=== PATIENT | female | born 1980 | race Caucasian/White ===

== ENCOUNTER 2023-07-21 13:48 | Outpatient (RCR) | payer MEDICARE, MEDICAID, SELFPAY | END 2023-08-03 12:01 | disposition home or self-care (01) | LOC: PT 13:48 | DX: R53.81 Other malaise (principal); G89.4 Chronic pain syndrome | CPT/HCPCS: 97113; 97161 ==

== ENCOUNTER 2023-09-29 13:49 | Emergency (ER) | payer MEDICARE, MEDICAID, SELFPAY ==
[2023-09-29 13:53] VITALS: BP 119/82; PULSE 65; TEMP 36.6; O2SAT 99; BMI 40.3
--- NOTE | 2023-09-29 14:22 | ED_ITS ---
HPI HPI - General Adult General Chief complaint: Allergic Reaction Stated complaint: ALLERGIC REACTION Time Seen by Provider: 09/29/23 14:13 Source: patient Mode of arrival: ambulance Limitations: no limitations History of Present Illness HPI narrative: Patient is a 42-year-old female who presents to the emergency department For feeling off after taking a dose of Nurtec ODT last night. She was recently prescribed this medication by her neurologist at the [facility]. She states she has daily headaches and has chronic migraines that are ongoing for years. She has chronic daily pain. She states she had a similar reaction to a combination of Depakote and Compazine that was given to her. She states she does not feel like herself, she feels off, her reports that she was climbing at her eyes last night despite her not having any hernandez on her face. She states she has not slept well in the last 2 days. She took the first dose of Nurtec ODT 2 days ago and states she had a mild similar reaction, the reaction to the medication after last night was more significant. She denies any new areas of pain, she has not had any fevers or visual loss. No vomiting, chest pain, shortness of breath, abdominal pain or peripheral paresthesias. She states her called 911 to bring her to the ER, she took Benadryl about 20 minutes prior to EMS arrival and states that her symptoms have improved at this time. She is not concerned for . At time of my initial interview, the patient has her on FaceTime on her phone, her starts telling me her symptoms/history because the patient states she is not coherent enough to provide her history. I requested that the patient answer questions on her own, she is noted to be able to speak easily, answers questions easily with no slurred speech or incoherence. She is awake, alert and oriented, able to cooperate in history and physical exam. Related Data Allergies Allergy/AdvReac Type Severity Reaction Status Date / Time latex Allergy Intermediate Verified 09/29/23 13:53 cephalexin [From Keflex] AdvReac Intermediate Verified 09/29/23 13:53 divalproex sodium AdvReac Intermediate Verified 09/29/23 13:53 [From Depakote] nitrofurantoin AdvReac Intermediate Verified 09/29/23 13:53 [From Macrobid] prednisone AdvReac Intermediate Verified 09/29/23 13:53 prochlorperazine AdvReac Intermediate Verified 09/29/23 13:53 [From Compazine] Sulfa (Sulfonamide AdvReac Intermediate Verified 09/29/23 13:53 Antibiotics) cirpo AdvReac Intermediate Uncoded 09/29/23 13:53 Opioid HPI Opioid Management Most Recent Opioid Data: No Data to Display Review of Systems ROS Constitutional Denies: fever or chills Ears, nose, mouth, and throat Denies: throat pain or nasal congestion Cardiovascular Denies: chest pain Respiratory Denies: shortness of breath or cough Gastrointestinal Denies: nausea or vomiting Musculoskeletal Denies: back pain or neck pain Integumentary/Breast Denies: rash Neurological Reports: headache; Denies: numbness in extremities Hematologic/Lymphatic Denies: easy bruising or easy bleeding Exam Narrative Exam Narrative: Gen.: Awake, alert, in no distress Head: Normocephalic, atraumatic ENT: Moist mucous membranes Respiratory: No respiratory distress, lungs clear bilaterally Cardio: Regular rate and rhythm Extremities: Moves extremities equally Psych: Normal mood and affect Neuro: No focal neuro deficit; Patient is mildly drowsy but awake and able to answer all questions appropriately. No slurred speech or incoherent speech. She has no focal neurodeficits on exam Skin: Warm, dry, intact Constitutional Vital Signs, click to edit/add: Last Vital Signs Temp 97.9 F 09/29/23 13:53 Pulse 65 09/29/23 13:53 Resp 16 09/29/23 13:53 BP 119/82 09/29/23 13:53 Pulse Ox 99 09/29/23 13:53 O2 Del Method Room Air 09/29/23 13:53 Course Vital Signs Vital signs: Vital Signs Temperature 97.9 F 09/29/23 13:53 Pulse Rate 65 09/29/23 13:53 Respiratory Rate 16 09/29/23 13:53 Blood Pressure 119/82 09/29/23 13:53 Pulse Oximetry 99 09/29/23 13:53 Oxygen Delivery Method Room Air 09/29/23 13:53 Temperature 97.9 F 09/29/23 13:53 Pulse Rate 65 09/29/23 13:53 Respiratory Rate 16 09/29/23 13:53 Blood Pressure 119/82 09/29/23 13:53 Pulse Oximetry 99 09/29/23 13:53 Oxygen Delivery Method Room Air 09/29/23 13:53 Medical Decision Making MDM Narrative Medical decision making narrative: Patient treated with IV fluids and Benadryl. She is sleeping comfortably and states she feels better on reevaluation. She was noted to have low potassium was treated with oral potassium chloride. She has stable vital signs, no evidence of anaphylaxis or allergic reaction. She was instructed not to take the Nurtec ODT until she speaks to her neurologist. Follow-up with neurology and return to the ER if symptoms change or worsen Medical Records Medical records reviewed: Yes I reviewed the patient's medical records Lab Data Lab results reviewed: Yes I reviewed the patient's lab results Labs: Lab Results 09/29/23 Range/Units 14:36 WBC 7.9 (4.0-11.0) 10^3/uL RBC 4.23 (4.20-5.40) 10^6/uL Hgb 12.5 (12.0-16.0) g/dL Hct 35.8 L (36.0-48.0) % MCV 84.6 (81.0-99.0) fL MCH 29.6 (26.7-34.0) pg MCHC 34.9 (29.9-35.2) g/dL RDW 13.3 (11.0-15.0) % Plt Count 267 (150-450) 10^3/uL MPV 10.8 (9.5-13.5) fL Neut % (Auto) 41.7 L (43.0-75.0) % Lymph % (Auto) 45.9 (20.5-60.0) % [place] % (Auto) 8.0 (1.7-12.0) % Eos % (Auto) 3.7 (0.9-7.0) % Baso % (Auto) 0.4 (0.2-2.0) % Neut # (Auto) 3.3 (1.4-6.5) 10^3/uL Lymph # (Auto) 3.6 (1.2-3.8) 10^3/uL [place] # (Auto) 0.6 (0.3-0.8) 10^3/uL Eos # (Auto) 0.3 (0.0-0.7) 10^3/uL Baso # (Auto) 0.0 (0.0-0.1) 10^3/uL Abs Immat Gran (auto) 0.02 (0.00-0.03) 10^3/uL Imm/Tot Granulo (auto) 0.3 (0.0-0.5) % Sodium 135 L (136-145) mmol/L Potassium 3.1 L (3.5-5.1) mmol/L Chloride 98 (98-107) mmol/L Carbon Dioxide 27.8 (21.0-32.0) mmol/L Anion Gap 12.3 BUN 4.0 L (7.0-18.0) mg/dL Creatinine 0.76 (0.55-1.02) mg/dL Est GFR ( Amer) >60 (>=60) Est GFR (Non-Af Amer) >60 (>=60) BUN/Creatinine Ratio 5.3 Glucose 102 (74-106) mg/dL Calcium 8.8 (8.5-10.1) mg/dL Discharge Plan Discharge Stand Alone Forms: Portal Instructions Chief Complaint: Allergic Reaction Clinical Impression: Medication adverse effect Patient Disposition: Home, Self-Care Time of Disposition Decision: 15:41 Condition: Good Print Language: Congolese Instructions: Adverse Drug Reaction (ED) Referrals: Physician,Non-Staff, [Primary Care Provider] - 1 week
[2023-09-29] MEDS: 0.9 % SODIUM CHLORIDE 1,000 ML 1000 ML IV (14:39)
[2023-09-29] MEDS: DIPHENHYDRAMINE HCL 50 MG/ML VIAL 25 MG IV (14:39)
[2023-09-29 15:00] LABS: Basophils Percent Auto 0.4 % (0.2-2.0); Eosinophils Absolute Auto 0.3 10^3/uL (0.0-0.7); Eosinophils Percent Auto 3.7 % (0.9-7.0); Hematocrit 35.8 % (36.0-48.0); Hemoglobin 12.5 g/dL (12.0-16.0); Immature Granulocytes Abs Auto 0.02 10^3/uL (0.00-0.03); Immature Granulocytes Pct Auto 0.3 % (0.0-0.5); Lymphocytes Absolute Auto 3.6 10^3/uL (1.2-3.8); Lymphocytes Percent Auto 45.9 % (20.5-60.0); Mean Corpuscular HGB Conc 34.9 g/dL (29.9-35.2); Mean Corpuscular Hemoglobin 29.6 pg (26.7-34.0); Mean Corpuscular Volume 84.6 fL (81.0-99.0); Mean Platelet Volume 10.8 fL (9.5-13.5); Monocytes Absolute Auto 0.6 10^3/uL (0.3-0.8); Neutrophils Absolute Auto 3.3 10^3/uL (1.4-6.5); Neutrophils Percent Auto 41.7 % (43.0-75.0); Platelet Count 267 10^3/uL (150-450); Red Blood Count 4.23 10^6/uL (4.20-5.40); Red Cell Distribution Width 13.3 % (11.0-15.0); White Blood Count 7.9 10^3/uL (4.0-11.0)
[2023-09-29 15:02] LABS: Anion Gap 12.3; BUN Creatinine Ratio 5.3; Calcium 8.8 mg/dL (8.5-10.1); Carbon Dioxide 27.8 mmol/L (21.0-32.0); Chloride 98 mmol/L (98-107); Estimated GFR (African America >60 (>=60); Estimated GFR (Non-African Ame >60 (>=60); Glucose 102 mg/dL (74-106); Potassium 3.1 mmol/L (3.5-5.1); Sodium 135 mmol/L (136-145)
[2023-09-29] MEDS: POTASSIUM CHLORIDE 10 MEQ ER TABLET 40 MEQ PO (15:47)
[2023-09-29 15:48] VITALS: BP 129/82; PULSE 88; O2SAT 98
== END 2023-09-29 15:50 | disposition home or self-care (01) ==
PROVIDERS: Physician Assistant; Emergency Provider Student in an Organized Health Care Education/Training Program
DX: R41.82 Altered mental status, unspecified (principal); T50.995A Adverse effect of other drugs, medicaments and biological substances, initial encounter; E87.6 Hypokalemia; G43.909 Migraine, unspecified, not intractable, without status migrainosus; G89.29 Other chronic pain
CPT/HCPCS: 36415; 80048; 85025; 96374; 99284; J1200

== ENCOUNTER 2024-09-09 00:35 | Emergency (ER) | payer MEDICARE, MEDICAID, SELFPAY ==
[2024-09-09] VITALS (17 sets, daily range): BP systolic 133–170; BP diastolic 91–105; PULSE 77–83; TEMP 37.1; O2SAT 91–96; BMI 41.1
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
--- OUTSIDE RECORDS SUMMARY | 2024-09-09 00:43 | XMS_ITS | Encounter Summary ---
Author Organization [facility] Address [address] [place], [place] [id number] Care Team Providers Care Gag Writer Name Role Phone IsiahNate greenfield Cecelia OSBORNE Unavailable [phone] Basim White MD Primary Care Provider Paulie Sandra MD Unavailable Teagan Henriquez RN Unavailable [facility] POWER GRADER OPERATOR.FELT HAT MELLOWING MACHINE OPERATOR Unavailable Leeanne Balderas POWER GRADER OPERATOR.FELT HAT MELLOWING MACHINE OPERATOR Unavailable [phone] Juanita Luong PA-C Unavailable Rubi Rodriguez POWER GRADER OPERATOR.FELT HAT MELLOWING MACHINE OPERATOR Unavailable Christiana Sims PA-C Unavailable Tami Vazquez PA-C Unavailable [phone] Juanita Luong PA-C Unavailable Awa Sanchez PA-C Unavailable Source Comments In the event this information is protected by the Federal Confidentiality of Alcohol and Drug AbusePatient Records regulations: The Federal rules restrict any use of the information to criminally investigate or prosecute any alcohol or drug abuse patient.[facility] Encounter Details Date Type Department Care Team (Latest Contact Info) Description 10/01/2020 Patient Msg Home Respiratory Therapy [address] [facility] [address] [place], [place] [address] Provider, [facility] Questionnaire Submission Social History Tobacco Use Types Packs/Day Years Used Date Smoking Tobacco: Never Smokeless Tobacco: Never Alcohol Use Standard Drinks/Week Comments Yes 0 (1 standard drink = 0.6 oz pur e alcohol) rarely Social Connection and Isolat ion Panel [NHANES] Answer Date Recorded In a typical week, how many times do you talk on the phone with family, friends, or neighbors? Once a week 09/29/2019 How often do you get togethe r with friends or relatives? Never 09/29/2019 How often do you attend chur or methodist services? More than 4 times per year 09/29/2019 Do you belong to any clubs o r organizations such as jewish groups, unions, fraternal or athletic groups, or school groups? No 09/29/2019 How often do you attend meet ings of the clubs or organizations you belong to? Never 09/29/2019 Are you , , di vorced, , never , or living with a partner? 09/29/2019 PHQ-2 Answer Date Recorded PHQ-2 score 0 02/04/2020 [facility] - Occupational Stress Questionnaire Answer Date Recorded Do you feel stress - tense, restless, nervous, or anxious, or unable to sleep at night because your mind is troubled all the time - these days? Rather much 09/29/2019 Exercise Vital Sign Answer Date Recorde d On average, how many days pe r week do you engage in moderate to strenuous exercise (like a brisk walk)? 0 days 09/29/2019 On average, how many minutes do you engage in exercise at this level? 0 min 09/29/2019 Housing Stability Vital Sign Answer Steve e Recorded In the last 12 months, was t here a time when you were not able to pay the mortgage or rent on time? Patient refused 03/22/20 20 [address] of [address] Lived in the Last Year Not on f ile 03/22/2020 In the last 12 months, was t here a time when you did not have a steady place to sleep or slept in a mcfp (including now)? Patient refused 03/22/2020 Area Deprivation Index Answer Date Sergio rded National Score (1-100), lower number is lower ri sk Not on file 03/22/2020 State Score (1-10), lower number is lower risk N ot on file 03/22/2020 Data from: https://www.neighborhoodatlas.medicine.[facility] Last address used for calculation Not on file 03/22/2020 Education Answer Date Recorded What is the highest level of school you have completed or the highest degree you have received? 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 Answer Date of Assessment Author No 01/25/2017 3:55 PM RAMONT Osmany Ireland RN documented as of this encounter Mental Status * Because of a physical, mental, or emotional condition, do you have serious difficulty concentrating, remembering, or making decisions? Answer Entry Date Author No 01/25/2017 3:55 PM EDT Osmany Ireland RN documented in this encounter Plan of Treatment Upcoming Encounters Date Type Department Care Team (Latest Contact Info) Description 09/24/2024 6:00 PM EDT [address] [address] Basim White MD [address] [place] [address] 3 month follow up 11/28/2024 9:40 AM EDT [facility] Endocrinology [place] [address] [place] [address] [place] [address] [address] Type one diabetes pump and cgm follow up 12/20/2024 4:00 PM EDT [address] [address] Christiana Sims PA-C [address] [place] [address] 6 Month follow up and yearly physical 03/04/2025 5:20 PM EST Office Visit [address] [address] Basim White MD [address] [place] [address] 12 month follow up documented as of this encounter Goals Goal Patient Goal Type Associated Problems Recent Progress Patient-Stated? Author Care Coordination - Diabetes Care Coordination Counseling and coordination of care Morena Velarde, RN Note: Knows type of diabetes. (e.g. [...] Reviewed on date: December 11, 2013 MORENA PANDEY RN documented as of this encounter Visit Diagnoses Not on filedocumented in this encounter Additional Health Concerns Infection Onset Date Last Indicated Resolved Time COVID-19 Confirmed 02/26/2021 02/26/2021 8:51 PM EST documented as of this encounter Care Teams Gag Writer Relationship Specialty Start Date End Date Basim White MD [address] [place] [address] PCP - General Family Medicine 08/09/17 Nate Joyce DO Roads Supervisor 02/09/13 Paulie Sandra MD [address] [address] Primary Staff Physician Cardiology 07/04/18 Teagan Henriquez, RN [address] [place] [address] Primary Care Business Services Clerk Internal Medicine 06/22/23 07/21/23 [facility], POWER GRADER OPERATOR.FELT HAT MELLOWING MACHINE OPERATOR [address] [place] [address] [facility] 03/26/24 07/04/24 Leeanne Balderas, POWER GRADER OPERATOR.FELT HAT MELLOWING MACHINE OPERATOR [address] [place] [address] [facility] 03/26/24 07/04/24 Juanita Luong PA-C [address] [place] [address] [facility] 03/26/24 07/04/24 Rbui Rodriguez, POWER GRADER OPERATOR.FELT HAT MELLOWING MACHINE OPERATOR [address] [place] [address] [facility] 03/26/24 07/04/24 Christiana Sims PA-C [address] [place] [address] [facility] 03/26/24 Tami Vazquez PA-C [address] [place] [address] [facility] 06/07/24 07/04/24 Juanita Luong PA-C [address] [place] [address] [facility] 07/11/24 07/25/24 Awa Sanchez PA-C [address] [place] [address] Chain Puller Internal Medicine 09/03/24 documented as of this encounter
--- OUTSIDE RECORDS SUMMARY | 2024-09-09 00:43 | XMS_ITS | Encounter Summary ---
Author Organization [facility] Address [address] [place], [place] [address] Care Team Providers Care Draw In Hand Name Role Phone IsiahNate greenfield Cecelia OSBORNE Unavailable [phone] Basim White MD Primary Care Provider Paulie Sandra MD Unavailable Teagan Henriquez RN Unavailable [employer] MANAGER HOME IMPROVEMENT.UX MANAGER Unavailable Leeanne Balderas MANAGER HOME IMPROVEMENT.UX MANAGER Unavailable [phone] Juanita Luong PA-C Unavailable Rubi Rodriguez MANAGER HOME IMPROVEMENT.UX MANAGER Unavailable Christiana Sims PA-C Unavailable Tami Vazquez PA-C Unavailable [phone] Juanita Luong PA-C Unavailable Awa Sanchez PA-C Unavailable Source Comments In the event this information is protected by the Federal Confidentiality of Alcohol and Drug AbusePatient Records regulations: The Federal rules restrict any use of the information to criminally investigate or prosecute any alcohol or drug abuse patient.[facility] Encounter Details Date Type Department Care Team (Late st Contact Info) Description 09/19/2020 Get Medical Advice General Surgery [address] [place] [address] Dior Martinez, MANAGER HOME IMPROVEMENT.SMOKE ROOM OPERATOR [address] [place] [address] RE: Visit Follow Up Question Social History [...] 09/29/2019 How often do you attend chur ch or yazidism services? More than 4 times per year 09/29/2019 Do you belong to any clubs o r organizations such as restorationism groups, unions, fraternal or athletic groups, or school groups? No 09/29/2019 How often do you attend meet ings of the clubs or organizations you belong to? Never 09/29/2019 Are you , , di vorced, , never , or living with a partner? 09/29/2019 PHQ-2 Answer Date Recorded PHQ-2 score 0 02/04/2020 [facility] - Occupational Stress [...] place to sleep or slept in a chcf (including now)? Patient refused 03/22/2020 Area Deprivation Index Answer Date Sergio rded National Score (1-100), lower number is lower ri sk Not on file 03/22/2020 State Score (1-10), lower number is lower risk N ot on file 03/22/2020 Data from: https://www.neighborhoodatlas.medicine.[facility].edu/. 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 Not on file Not [...] Contact Info) Description 09/24/2024 6:00 PM EDT [address] [address] Basim White MD [address] [place] [address] 3 month follow up 11/28/2024 9:40 AM EDT [facility] [place] [address] [place] [address] [place] [address] [address] Type one diabetes pump and cgm follow up 12/20/2024 4:00 PM EDT [address] [address] Christiana Sims PA-C [address] [place] [address] 6 Month follow up and yearly physical 03/04/2025 5:20 PM EST Office Visit [address] [address] Basim White MD [address] [place] [address] 12 month follow up documented as of [...] documented as of this encounter Care Teams Draw In Hand Relationship Specialty Start Date End Date Basim White MD [address] [place] [address] PCP - General Family Medicine 08/09/17 Nate Joyce DO Title Specialist 02/09/13 Paulie Sandra MD [address] [address] Primary Staff Physician Cardiology 07/04/18 Teagan Henriquez, RN [address] [place] [address] Primary Care Skip Pit Worker Internal Medicine 06/22/23 07/21/23 [employer], MANAGER HOME IMPROVEMENT.UX MANAGER [address] [place] [address] Story Writer Family Medicine 03/26/24 07/04/24 Leeanne Balderas, MANAGER HOME IMPROVEMENT.UX MANAGER [address] [place] [address] Story Writer Family Medicine 03/26/24 07/04/24 Juanita Luong PA-C [address] [place] [address] Story Writer Family Medicine 03/26/24 07/04/24 Rubi Rodriguez, MANAGER HOME IMPROVEMENT.UX MANAGER [address] [place] [address] Story Writer Family Medicine 03/26/24 07/04/24 Christiana Sims PA-C [address] [place] [address] Story Writer Family Medicine 03/26/24 Tami Vazquez PA-C [address] [place] [address] Story Writer Family Medicine 06/07/24 07/04/24 Juanita Luong PA-C [address] [place] [address] Story Writer Family Medicine 07/11/24 07/25/24 Awa Sanchez PA-C [facility] [place] [phone] Story Writer Internal Medicine 09/03/24 documented as of this encounter
--- OUTSIDE RECORDS SUMMARY | 2024-09-09 00:43 | XMS_ITS | Encounter Summary ---
Author Organization [facility] Address [address] [place], [place] [address] Care Team Providers Care Desolderer Name Role Phone IsiahNate greenfield Cecelia OSBORNE Unavailable [phone] Basim White MD Primary Care Provider Paulie Sandra MD Unavailable [phone] Teagan Henriquez RN Unavailable [employer] SECURITIES SETTLEMENT PROCESSOR.MOTOR SCOOTER REPAIRER Unavailable Leeanne Balderas SECURITIES SETTLEMENT PROCESSOR.MOTOR SCOOTER REPAIRER Unavailable [phone] Juanita Luong PA-C Unavailable Rubi Rodriguez SECURITIES SETTLEMENT PROCESSOR.MOTOR SCOOTER REPAIRER Unavailable Christiana Sims PA-C Unavailable Tami Vazquez PA-C Unavailable [phone] Juanita Luong PA-C Unavailable Awa Sanchez PA-C Unavailable Source Comments In the event this information is protected by the Federal Confidentiality of Alcohol and Drug AbusePatient Records regulations: The Federal rules restrict any use of the information to criminally investigate or prosecute any alcohol or drug abuse patient.[facility] Encounter Details Date Type Department Care Team (Kathryn saini Contact Info) Description 07/18/2023 Patient Msg Cardiovascular Testing [address] [place] [address] Provider, Ccf Nuclear Medicine Stress Test - On 07/18 Social History Tobacco Use Types Packs/Day Years Used Date Smoking Tobacco: Never Smokeless Tobacco: Never Alcohol Use Standard Drinks/Week Comments Yes 0 (1 standard drink = 0.6 oz pur e alcohol) rarely [facility] Utilities Answer Date Recorded In the past 12 months has e [employer], gas, oil, or water company threatened to shut off services in your home? Yes 06/20/2023 Social Connection and Isolat ion Panel [NHANES] Answer Date Recorded In a typical week, how many times do you talk on the phone with family, friends, or neighbors? Patient declined 05/20/2023 How often do you get togethe r with friends or relatives? Never 05/20/2023 How often do you attend chur ch or pentecostalism services? More than 4 times per year 05/20/2023 Do you belong to any clubs o r organizations such as spiritism groups, unions, fraternal or athletic groups, or school groups? No 05/20/2023 How often do you attend meet ings of the clubs or organizations you belong to? Never 05/20/2023 Are you , , di vorced, , never , or living with a partner? 05/20/2023 AUDIT-C Answer Date Recorded Q1: How often do you have a drink containing alc ohol? Monthly or less 05/20/2023 Q2: How many drinks containi ng alcohol do you have on a typical day when you are drinking? 1 or 2 05/20/2023 Q3: How often do you have si x or more drinks on one occasion? Never 05/20/2023 Overall Financial Resource Strain (CARDIA) Answe r Date Recorded How hard is it for you to pa y for the very basics like food, housing, medical care, and heating? Very hard 06/20/2023 PHQ-2 Answer Date Recorded PHQ-2 score 4 06/25/2023 [facility] [place] of Occupat ional [facility] - Occupational Stress Questionnaire Answer Date Recorded Do you feel stress - tense, restless, nervous, or anxious, or unable to sleep at night because your mind is troubled all the time - these days? Rather much 05/20/2023 Exercise Vital Sign Answer Date Recorde d On average, how many days pe r week do you engage in moderate to strenuous exercise (like a brisk walk)? 0 days 05/20/2023 On average, how many minutes do you engage in exercise at this level? 0 min 05/20/2023 Hunger Vital Sign Answer Date Recorded Within the past 12 months, y ou worried that your food would run out before you got the money to buy more. Often true 06/20/19 24 Within the past 12 months, t he food you bought just didn't last and you didn't have money to get more. Often true 06/20/2023 PRAPARE - Transportation Answer Date Re corded In the past 12 months, has l ack of transportation kept you from medical appointments or from getting medications? Yes 07/2023 In the past 12 months, has l ack of transportation kept you from meetings, work, or from getting things needed for daily living? Yes 06/20/2023 Housing Stability Vital Sign Answer Steve e Recorded In the last 12 months, was t here a time when you were not able to pay the mortgage or rent on time? Yes 06/20/2023 In the last 12 months, how many places have you lived? 1 06/20/2023 In the last 12 months, was t here a time when you did not have a steady place to sleep or slept in a usp (including now)? No 06/20/2023 Area Deprivation Index Answer Date Sergio rded National Score (1-100), lower number is lower ri sk 79 08/26/2022 State Score (1-10), lower number is lower risk 7 08/26/2022 Data from: https://www.neighborhoodatlas.medicine.[facility].edu/. 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 on file Not [...] Contact Info) Description 09/24/2024 6:00 PM EDT [facility] [place] [address] [place] [address] Basim White MD [address] [place] [address] 3 month follow up 11/28/2024 9:40 AM EDT [facility] [place] [address] [place] [address] [place] [address] [facility] [address] [place] [address] Type one diabetes pump and cgm follow up 12/20/2024 4:00 PM EDT [facility] [place] [address] [place] [address] Christiana Sims PA-C [address] [place] [address] 6 Month follow up and yearly physical 03/04/2025 5:20 PM EST Office Visit [facility] [address] [place] [address] Basim White MD [address] [place] [address] 12 month follow up documented as of [...] Diagnoses Not on filedocumented in this encounter Care Teams Desolderer Relationship Specialty Start Date End Date Basim White MD [address] [place] [address] PCP - General Family Medicine 08/09/17 Nate Joyce DO Cable Braider 02/09/13 Paulie Sandra MD [address] [phone] Primary Staff Physician Cardiology 07/04/18 Teagan Henriquez, JIE [address] [place] [address] Primary Care Director Custom Internal Medicine 06/22/23 07/21/23 [employer] Kc APRN.MOTOR SCOOTER REPAIRER [address] [place] [address] Receiving And Processing Supervisor Family Medicine 03/26/24 07/04/24 Leeanne Balderas, SECURITIES SETTLEMENT PROCESSOR.MOTOR SCOOTER REPAIRER [address] [place] [address] Receiving And Processing Supervisor Family Medicine 03/26/24 07/04/24 Juanita Luong PA-C [address] [place] [address] Receiving And Processing Supervisor Family Medicine 03/26/24 07/04/24 Rubi Rodriguez, ISABELLA.MOTOR SCOOTER REPAIRER [address] [place] [address] Receiving And Processing Supervisor Family Medicine 03/26/24 07/04/24 Christiana Sims PA-C [address] [place] [address] Receiving And Processing Supervisor Family Medicine 03/26/24 Tami Vazquez PA-C [address] [place] [address] Receiving And Processing Supervisor Family Medicine 06/07/24 07/04/24 Juanita Luong PA-C [address] [place] [address] Receiving And Processing Supervisor Family Medicine 07/11/24 07/25/24 Awa Sanchez PA-C [address] [place] [id number] Receiving And Processing Supervisor Internal Medicine 09/03/24 documented as of this encounter
--- OUTSIDE RECORDS SUMMARY | 2024-09-09 00:43 | XMS_ITS | Encounter Summary ---
Author Organization [facility] Address [address] [place], [place] [address] Care Team Providers Care Sales Representative Trainee Name Role Phone IsiahNate greenfield Cecelia OSBORNE Unavailable [phone] Basim White MD Primary Care Provider Paulie Sandra MD Unavailable Teagan Henriquez RN Unavailable [employer] HUMAN RESOURCES RECRUITER.JEWELSMITH Unavailable Leeanne Balderas HUMAN RESOURCES RECRUITER.JEWELSMITH Unavailable [phone] Juanita Luong PA-C Unavailable Rubi Rodriguez HUMAN RESOURCES RECRUITER.JEWELSMITH Unavailable Christiana Sims PA-C Unavailable Tami Vazquez PA-C Unavailable [phone] Juanita Luong PA-C Unavailable Awa Sanchez PA-C Unavailable Source Comments In the event this information is protected by the Federal Confidentiality of Alcohol and Drug AbusePatient Records regulations: The Federal rules restrict any use of the information to criminally investigate or prosecute any alcohol or drug abuse patient.[facility] Encounter Details Date Type Department Care Team (Late st Contact Info) Description 08/11/2021 Get Medical Advice Family Medicine [place] [address] [place], [place] [phone] Basim White MD [address] [place], [place] [id number] Questions Social History Tobacco Use Types Packs/Day Years [...] often do you attend chur ch or anabaptist services? More than 4 times per year 09/29/2019 Do you belong to any clubs o r organizations such as confucianism groups, unions, fraternal or athletic groups, or school groups? No 09/29/2019 How often do you attend meet ings of the clubs or organizations you belong to? Never 09/29/2019 Are you , , di vorced, , never , or living with a partner? 09/29/2019 PHQ-2 Answer Date Recorded PHQ-2 score 5 03/03/2021 [facility] Occupat ional Health - [...] the mortgage or rent on time? Yes 03/03/2021 In the last 12 months, how many places have you lived? 1 03/03/2021 In the last 12 months, was t here a time when you did not have a steady place to sleep or slept in a fpc (including now)? No 03/03/2021 Area Deprivation Index Answer Date Sergio rded National Score (1-100), lower number is lower ri sk Not on file 03/22/2020 State Score (1-10), lower number is lower risk N ot on file 03/22/2020 Data from: https://www.neighborhoodatlas.medicine.[facility].edu/. Last address used for calculation Not on [...] Industry Job Start Date Job End Date [employer] Not on file Not on file Not on file disability since 07/2015 (off work since 11/2013) Not on file Not on file Not on file COVID-19 Exposure Response Date Recorded In the last 10 days, have yo u been in contact with someone who was confirmed or suspected to have Coronavirus/COVID-19? No / Unsure 07/13/2021 11:39 PM EDT documented as of this encounter Functional Status [...] Contact Info) Description 09/24/2024 6:00 PM EDT [address] [address] Basim White MD [address] [place] [address] 3 month follow up 11/28/2024 9:40 AM EDT [facility] [place] [address] [place] [phone] [place] [address] [address] Type one diabetes pump and cgm follow up 12/20/2024 4:00 PM EDT [address] [address] Christiana Sims PA-C [address] [place] [address] 6 Month follow up and yearly physical 03/04/2025 5:20 PM EST Office Visit [address] [address] Basim White MD [address] [place] [address] 12 month follow up documented as of [...] as of this encounter 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 Care Teams Sales Representative Trainee Relationship Specialty Start Date End Date Basim White MD [address] [place] [address] PCP - General Family Medicine 08/09/17 Nate Joyce DO Windows Systems Administrator 02/09/13 Paulie Sandra MD [address] [address] Primary Staff Physician Cardiology 07/04/18 Teagan Henriquez, RN [address] [place] [id number] Primary Care Tool Crib Clerk Internal Medicine 06/22/23 07/21/23 P[employer] Kc, HUMAN RESOURCES RECRUITER.JEWELSMITH [address] [place] [address] Plant Controller Family Medicine 03/26/24 07/04/24 Leeanne Balderas, HUMAN RESOURCES RECRUITER.JEWELSMITH [address] [place] [address] [facility] Family Medicine 03/26/24 07/04/24 Juanita Luong PA-C [address] [place] [address] [facility] Family Medicine 03/26/24 07/04/24 Rubi Rodriguez, HUMAN RESOURCES RECRUITER.JEWELSMITH [address] [place] [address] [facility] Family Medicine 03/26/24 07/04/24 Christiana Sims PA-C [address] [place] [address] [facility] Family Medicine 03/26/24 Tami Vazquez PA-C [address] [place] [address] [facility] Family Medicine 06/07/24 07/04/24 Juanita Luong PA-C [address] [place] [address] Plant Controller Family Medicine 07/11/24 07/25/24 Awa Sanchez PA-C [address] [place] [id number] Plant Controller Internal Medicine 09/03/24 documented as of this encounter
--- OUTSIDE RECORDS SUMMARY | 2024-09-09 00:43 | XMS_ITS | Encounter Summary ---
Author Organization [facility] Address [address] [place], [place] [address] Care Team Providers Care Crude Unit Operator Name Role Phone IsiahNate greenfield Cecelia OSBORNE Unavailable [phone] Basim White MD Primary Care Provider Paulie Sandra MD Unavailable [phone] Teagan Henriquez RN Unavailable [employer] SWEAT BAND SEWER.DOULA Unavailable Leeanne Balderas SWEAT BAND SEWER.DOULA Unavailable [phone] Juanita Luong PA-C Unavailable Rubi Rodriguez SWEAT BAND SEWER.DOULA Unavailable Christiana Sims PA-C Unavailable Tami Vazquez PA-C Unavailable [phone] Juanita Luong PA-C Unavailable Awa Sanchez PA-C Unavailable Source Comments In the event this information is protected by the Federal Confidentiality of Alcohol and Drug AbusePatient Records regulations: The Federal rules restrict any use of the information to criminally investigate or prosecute any alcohol or drug abuse patient.[facility] Encounter Details Date Type Department Care Team (Kathryn saini Contact Info) Description 08/08/2021 [place] [address] Provider, Ccf Questionnaire Submission Social History Tobacco [...] often do you attend chur ch or faith services? More than 4 times per year 09/29/2019 Do you belong to any clubs o r organizations such as rastafari groups, unions, fraternal or athletic groups, or school groups? No 09/29/2019 How often do you attend meet ings of the clubs or organizations you belong to? Never 09/29/2019 Are you , , di vorced, , never , or living with a partner? 09/29/2019 PHQ-2 Answer Date Recorded PHQ-2 score 5 03/03/2021 [facility] Occupat ional Health - [...] place to sleep or slept in a correction (including now)? No 03/03/2021 Area Deprivation Index Answer Date Sergio rded National Score (1-100), lower number is lower ri sk Not on file 03/22/2020 State Score (1-10), lower number is lower risk N ot on file 03/22/2020 Data from: https://www.neighborhoodatlas.medicine.[facility]/. 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[employer] Not on file Not on file Not [...] Contact Info) Description 09/24/2024 6:00 PM EDT [address] [address] Basim White MD [address] [place] [address] 3 month follow up 11/28/2024 9:40 AM EDT [facility] Endocrinology [place] [address] [place] [address] [place] [address] [address] Type one diabetes pump and cgm follow up 12/20/2024 4:00 PM EDT [address] [address] Christiana Sims PA-C [address] [place] [address] 6 Month follow up and yearly physical 03/04/2025 5:20 PM EST Office Visit [address] [address] Basim White MD [address] [place] [address] 12 month follow up documented as of [...] on filedocumented in this encounter Care Teams Crude Unit Operator Relationship Specialty Start Date End Date Basim White MD [address] [place] [address] PCP - General Family Medicine 08/09/17 Nate Joyce DO Fittings Finisher 02/09/13 Paulie Sandra MD [address] [address] Primary Staff Physician Cardiology 07/04/18 Teagan Henriquez, RN [address] [place] [address] Primary Care Slitter And Cutter Operator Internal Medicine 06/22/23 07/21/23 Pascale Kc, SWEAT BAND SEWER.DOULA [address] [place] [address] Patrol Community Service Officer Family Medicine 03/26/24 07/04/24 Leeanne Balderas, SWEAT BAND SEWER.DOULA [address] [place] [address] Patrol Community Service Officer Family Medicine 03/26/24 07/04/24 Juanita Luong PA-C [address] [place] [address] [facility] Family Medicine 03/26/24 07/04/24 Rubi Rodriguez, SWEAT BAND SEWER.DOULA [address] [place] [address] Patrol Community Service Officer Family Medicine 03/26/24 07/04/24 Christiana Sims PA-C [address] [place] [address] Patrol Community Service Officer Family Medicine 03/26/24 Tami Vazquez PA-C [address] [place] [address] Patrol Community Service Officer Family Medicine 06/07/24 07/04/24 Juanita Luong PA-C [address] [place] [address] Patrol Community Service Officer Family Medicine 07/11/24 07/25/24 Awa Sanchez PA-C [address] [place] [address] Patrol Community Service Officer Internal Medicine 09/03/24 documented as of this encounter
--- OUTSIDE RECORDS SUMMARY | 2024-09-09 00:43 | XMS_ITS | Encounter Summary ---
Author Organization [facility] Address [address] [place], [place] [id number] Care Team Providers Care Planishing Press Operator Name Role Phone IsiahNate greenfield Cecelia OSBORNE Unavailable [phone] Basim White MD Primary Care Provider Paulie Sandra MD Unavailable Teagan Henriquez RN Unavailable [employer] SPARKER AND PATCHER.SCRAP METAL PROCESSING WORKER Unavailable Leeanne Balderas SPARKER AND PATCHER.SCRAP METAL PROCESSING WORKER Unavailable [phone] Juanita Luong PA-C Unavailable Rubi Rodriguez SPARKER AND PATCHER.SCRAP METAL PROCESSING WORKER Unavailable Christiana Sims PA-C Unavailable Tami Vazquez PA-C Unavailable [phone] Juanita Luong PA-C Unavailable Awa Sanchez PA-C Unavailable Source Comments In the event this information is protected by the Federal Confidentiality of Alcohol and Drug AbusePatient Records regulations: The Federal rules restrict any use of the information to criminally investigate or prosecute any alcohol or drug abuse patient.[facility] Encounter Details Date Type Department Care Team (Late st Contact Info) Description 10/23/2020 Get Medical Advice Family Medicine [place] [address] [place], [place] [id number] Basim White MD [address] [place], [place] [id number] RE: Visit Follow Up Question Social History [...] often do you attend chur ch or anabaptism services? More than 4 times per year 09/29/2019 Do you belong to any clubs o r organizations such as hoahaoism groups, unions, fraternal or athletic groups, or school groups? No 09/29/2019 How often do you attend meet ings of the clubs or organizations you belong to? Never 09/29/2019 Are you , , di vorced, , never , or living with a partner? 09/29/2019 PHQ-2 Answer Date Recorded PHQ-2 score 0 02/04/2020 [facility] of Occupat ional Health - Occupational Stress [...] place to sleep or slept in a assisted (including now)? Patient refused 03/22/2020 Area Deprivation Index Answer Date Sergio rded National Score (1-100), lower number is lower ri sk Not on file 03/22/2020 State Score (1-10), lower number is lower risk N ot on file 03/22/2020 Data from: https://www.neighborhoodatlas.medicine.[place].edu/. Last address used for calculation Not on [...] Industry Job Start Date Job End Date [employer] Not on file Not on file Not [...] Contact Info) Description 09/24/2024 6:00 PM EDT [address] [address] Basim White MD [address] [place] [address] 3 month follow up 11/28/2024 9:40 AM EDT [facility] Endocrinology [place] [address] [place] [address] [place] [address] [address] Type one diabetes pump and cgm follow up 12/20/2024 4:00 PM EDT [address] [address] Christiana Sims PA-C [address] [place] [address] 6 Month follow up and yearly physical 03/04/2025 5:20 PM EST Office Visit [address] [address] Basim White MD [address] [place] [address] 12 month follow up documented as of this encounter Goals Goal Patient Goal Type Associated Problems Recent Progress Patient-Stated? Author Care Coordination - Diabetes Care Coordination Counseling and coordination of care Morena Velarde M, RN Note: Knows type of diabetes. (e.g. [...] as of this encounter Visit Diagnoses Diagnosis Nonallergic rhinitis- Primary Chronic rhinitis documented in this encounter Additional Health Concerns Infection Onset Date Last Indicated Resolved Time COVID-19 Confirmed 02/26/2021 02/26/2021 8:51 PM EST documented as of this encounter Care Teams Planishing Press Operator Relationship Specialty Start Date End Date Basim White MD [address] [place] [address] PCP - General Family Medicine 08/09/17 Nate Joyce DO Automotive Sales Manager 02/09/13 Paulie Sandra MD [address] [address] Primary Staff Physician Cardiology 07/04/18 Teagan Henriquez, RN [address] [id number] Primary Care Employment Service Specialist Internal Medicine 06/22/23 07/21/23 [employer], SPARKER AND PATCHER.SCRAP METAL PROCESSING WORKER [address] [place] [address] Process Development Associate Family Medicine 03/26/24 07/04/24 Leeanne Balderas, SPARKER AND PATCHER.SCRAP METAL PROCESSING WORKER [address] [place] [address] [facility] Family Medicine 03/26/24 07/04/24 Juanita Luong PA-C [address] [place] [address] [facility] Family Medicine 03/26/24 07/04/24 Rubi Rodriguez, SPARKER AND PATCHER.SCRAP METAL PROCESSING WORKER [address] [place] [address] Process Development Associate Family Medicine 03/26/24 07/04/24 Christiana Sims PA-C [address] [place] [address] Process Development Associate Family Medicine 03/26/24 Tami Vazquez PA-C [address] [place] [address] Process Development Associate Family Medicine 06/07/24 07/04/24 Juanita Luong PA-C [address] [place] [address] Process Development Associate Family Medicine 07/11/24 07/25/24 Awa Sanchez PA-C [facility] [id number] Process Development Associate Internal Medicine 09/03/24 documented as of this encounter
--- OUTSIDE RECORDS SUMMARY | 2024-09-09 00:43 | XMS_ITS | Encounter Summary ---
Author Organization [facility] Address [address] [place], [place] [address] Care Team Providers Care Licensed Direct Entry Midwife Name Role Phone IsiahNate greenfield Cecelia OSBORNE Unavailable [phone] Basim White MD Primary Care Provider Paulie Sandra MD Unavailable Teagan Henriquez RN Unavailable [employer] ATHLETIC FIELD CUSTODIAN.BOAT BUFFER PLASTIC Unavailable Leeanne Balderas ATHLETIC FIELD CUSTODIAN.BOAT BUFFER PLASTIC Unavailable [phone] Juanita Luong PA-C Unavailable Rubi Rodriguez ATHLETIC FIELD CUSTODIAN.BOAT BUFFER PLASTIC Unavailable Christiana Sims PA-C Unavailable Tami Vazquez PA-C Unavailable [phone] Juanita Luong PA-C Unavailable Awa Sanchez PA-C Unavailable Source Comments In the event this information is protected by the Federal Confidentiality of Alcohol and Drug AbusePatient Records regulations: The Federal rules restrict any use of the information to criminally investigate or prosecute any alcohol or drug abuse patient.[facility] Encounter Details Date Type Department Care Team (Late Contact Info) Description 12/18/2020 Patient Msg Endocrinology [address] [place] [address] [place] [address] [place] [address] Meter Download Social History Tobacco Use Types Packs/Day Years [...] How often do you attend chur or anabaptism services? More than 4 times per year 09/29/2019 Do you belong to any clubs o r organizations such as gnosticism groups, unions, fraternal or athletic groups, or school groups? No 09/29/2019 How often do you attend meet ings of the clubs or organizations you belong to? Never 09/29/2019 Are you , , di vorced, , never , or living with a partner? 09/29/2019 PHQ-2 Answer Date Recorded PHQ-2 score 0 02/04/2020 [facility] of Occupat ional Health - [...] place to sleep or slept in a mcc (including now)? Patient refused 03/22/2020 Area Deprivation Index Answer Date Sergio rded National Score (1-100), lower number is lower ri sk Not on file 03/22/2020 State Score (1-10), lower number is lower risk N ot on file 03/22/2020 Data from: https://www.neighborhoodatlas.medicine.[facility].edu/. Last address used for calculation Not [...] Industry Job Start Date Job End Date [employer] Not on file Not on file Not [...] Contact Info) Description 09/24/2024 6:00 PM EDT [address] [address] Basim White MD [address] [place] [address] 3 month follow up 11/28/2024 9:40 AM EDT [facility] Endocrinology [place] [address] [place] [id number] [place] [address] [address] Type one diabetes pump and cgm follow up 12/20/2024 4:00 PM EDT [address] [address] Christiana Sims PA-C [address] [place] [address] 6 Month follow up and yearly physical 03/04/2025 5:20 PM EST Office Visit [address] [address] Basim White MD [address] [place] [address] 12 month follow up documented as of [...] documented as of this encounter Care Teams Licensed Direct Entry Midwife Relationship Specialty Start Date End Date Basim White MD [address] [place] [address] PCP - General Family Medicine 08/09/17 Nate Joyce DO Front Desk Receptionist 02/09/13 Paulie Sandra MD [address] [address] Primary Staff Physician Cardiology 07/04/18 Teagan Henriquez, RN [address] [place] [address] Primary Care Snapper On Internal Medicine 06/22/23 07/21/23 [employer] ATHLETIC FIELD CUSTODIAN.BOAT BUFFER PLASTIC [address] [place] [address] [facility] 03/26/24 07/04/24 Leeanne Balderas, ATHLETIC FIELD CUSTODIAN.BOAT BUFFER PLASTIC [address] [place] [address] [facility] 03/26/24 07/04/24 Juanita Luong PA-C [address] [place] [address] [facility] 03/26/24 07/04/24 Rubi Rodriguez, ATHLETIC FIELD CUSTODIAN.BOAT BUFFER PLASTIC [address] [place] [address] [facility] 03/26/24 07/04/24 Christiana Sims PA-C [address] [place] [address] [facility] 03/26/24 Tami Vazquez PA-C [address] [place] [address] [facility] 06/07/24 07/04/24 Juanita Luong PA-C [address] [place] [address] [facility] 07/11/24 07/25/24 Awa Sanchez PA-C [address] [phone] [facility] 09/03/24 documented as of this encounter
--- OUTSIDE RECORDS SUMMARY | 2024-09-09 00:43 | XMS_ITS | Encounter Summary ---
Author Organization [facility] Address [address] [place], [place] [address] Care Team Providers Care Pot Puncher Name Role Phone IsiahNate greenfield Cecelia OSBORNE Unavailable [phone] Basim White MD Primary Care Provider Paulie Sandra MD Unavailable Teagan Henriquez RN Unavailable [employer] SENIOR SUPPORT ANALYST.LIBRARY TECHNICAL ASSISTANT Unavailable Leeanne Balderas SENIOR SUPPORT ANALYST.LIBRARY TECHNICAL ASSISTANT Unavailable [phone] Juanita Luong PA-C Unavailable Rubi Rodriguez SENIOR SUPPORT ANALYST.LIBRARY TECHNICAL ASSISTANT Unavailable Christiana Sims PA-C Unavailable Tami Vazquez PA-C Unavailable [phone] Juanita Luong PA-C Unavailable Awa Sanchez PA-C Unavailable Source Comments In the event this information is protected by the Federal Confidentiality of Alcohol and Drug AbusePatient Records regulations: The Federal rules restrict any use of the information to criminally investigate or prosecute any alcohol or drug abuse patient.[facility] Encounter Details Date Type Department Care Team (Late st Contact Info) Description 10/02/2020 Get Medical Advice Endocrinology [address] [place] [address] [place] [address] [place] [address] RE: Upcoming Appointment Question Social History Tobacco Use Types Packs/Day [...] How often do you attend chur or denominational services? More than 4 times per year 09/29/2019 Do you belong to any clubs o r organizations such as voodoo groups, unions, fraternal or athletic groups, or school groups? No 09/29/2019 How often do you attend meet ings of the clubs or organizations you belong to? Never 09/29/2019 Are you , , di vorced, , never , or living with a partner? 09/29/2019 PHQ-2 Answer Date Recorded PHQ-2 score 0 02/04/2020 [facility] of Occupat ional Health - Occupational [...] place to sleep or slept in a jail (including now)? Patient refused 03/22/2020 Area Deprivation Index Answer Date Sergio rded National Score (1-100), lower number is lower ri sk Not on file 03/22/2020 State Score (1-10), lower number is lower risk N ot on file 03/22/2020 Data from: https://www.neighborhoodatlas.medicine.[facility].edu/. Last address used for calculation Not [...] Industry Job Start Date Job End Date [employer] Not on file Not on file Not [...] Contact Info) Description 09/24/2024 6:00 PM EDT [address] [address] Basim White MD [address] [place] [address] 3 month follow up 11/28/2024 9:40 AM EDT [facility] Endocrinology [place] [address] [place] [address] [place] [address] [address] Type one diabetes pump and cgm follow up 12/20/2024 4:00 PM EDT [address] [address] Christiana Sims PA-C [address] [place] [address] 6 Month follow up and yearly physical 03/04/2025 5:20 PM EST Office Visit [address] [address] Basim White MD [address] [place] [address] 12 month follow up documented as of [...] Indicated Resolved Time COVID-19 Confirmed 02/26/2021 02/26/2021 1 8:51 PM EST documented as of this encounter Care Teams Pot Puncher Relationship Specialty Start Date End Date Basim White MD [address] [place] [address] PCP - General Family Medicine 08/09/17 Nate Joyce DO Biology Tutor 02/09/13 Paulie Sandra MD [address] [address] Primary Staff Physician Cardiology 07/04/18 Teagan Henriquez, RN [address] [place] [address] Primary Care Web Consultant Internal Medicine 06/22/23 07/21/23 [employer] SENIOR SUPPORT ANALYST.LIBRARY TECHNICAL ASSISTANT [address] [place] [address] Remote Sensing Engineer Family Medicine 03/26/24 07/04/24 Leeanne Balderas, SENIOR SUPPORT ANALYST.LIBRARY TECHNICAL ASSISTANT [address] [place] [address] Remote Sensing Engineer Family Medicine 03/26/24 07/04/24 Juanita Luong PA-C [address] [place] [address] Remote Sensing Engineer Family Medicine 03/26/24 07/04/24 Rubi Rodriguez, SENIOR SUPPORT ANALYST.LIBRARY TECHNICAL ASSISTANT [address] [place] [address] Remote Sensing Engineer Family Medicine 03/26/24 07/04/24 Christiana Sims PA-C [address] [place] [address] Remote Sensing Engineer Family Medicine 03/26/24 Tami Vazquez PA-C [address] [place] [address] Remote Sensing Engineer Family Medicine 06/07/24 07/04/24 Juanita Luong PA-C [address] [place] [address] Remote Sensing Engineer Family Medicine 07/11/24 07/25/24 Awa Sanchez PA-C [address] [phone] Remote Sensing Engineer Internal Medicine 09/03/24 documented as of this encounter
--- OUTSIDE RECORDS SUMMARY | 2024-09-09 00:43 | XMS_ITS | Encounter Summary ---
Author Organization [facility] Address [address] [place], [place] [address] Care Team Providers Care Jacquard Fixer Name Role Phone IsiahNate greenfield Cecelia OSBORNE Unavailable [phone] Basim White MD Primary Care Provider Paulie Sandra MD Unavailable Teagan Henriquez RN Unavailable [employer] COIN DEALER.APRON WORKER Unavailable Leeanne Balderas COIN DEALER.APRON WORKER Unavailable [phone] Juanita Luong PA-C Unavailable Rubi Rodriguez COIN DEALER.APRON WORKER Unavailable Christiana Sims PA-C Unavailable Tami Vazquez PA-C Unavailable [phone] Juanita Luong PA-C Unavailable Awa Sanchez PA-C Unavailable Source Comments In the event this information is protected by the Federal Confidentiality of Alcohol and Drug AbusePatient Records regulations: The Federal rules restrict any use of the information to criminally investigate or prosecute any alcohol or drug abuse patient.[facility] Encounter Details Date Type Department Care Team (Late st Contact Info) Description 09/28/2019 Get Medical Advice Family Medicine [place] [address] [place], [place] [phone] Basim White MD [address] [place], [place] [phone] RE: Non-Urgent Medical Question Social History Tobacco Use Types Packs/Day [...] often do you attend chur ch or mosque services? More than 4 times per year 09/29/2019 Do you belong to any clubs o r organizations such as hoahaoism groups, unions, fraternal or athletic groups, or school groups? No 09/29/2019 How often do you attend meet ings of the clubs or organizations you belong to? Never 09/29/2019 Are you , , di vorced, , never , or living with a partner? 09/29/2019 [facility] of Occupat ional Health - Occupational [...] mortgage or rent on time? Patient refused 09/29/19 20 Number of Places Lived in the Last Year Not on f ile 09/29/2019 In the last 12 months, was t here a time when you did not have a steady place to sleep or slept in a mcc (including now)? Patient refused 09/29/2019 Comments No Sex and Gender Information Value Date Recorded Sex Assigned at Female 05/14/2019 6:58 PM EST Legal Sex Female 12:49 PM EDT Gender Identity Female 05/14/2019 6:58 PM EST Sexual Orientation Straight 07/03/2020 1: 16 AM EDT Occupation Industry Job Start Date Job End Date [employer] Not on file Not on file Not on file disability since 07/2015 (off work since 11/2013) Not on file Not on file Not on file COVID-19 Exposure Response Date Recorded In the last month, have you been in contact with someone who was confirmed or suspected to have Coronavirus / COVID-19? No / Unsure 09/28/2019 3:21 PM EDT documented as of this encounter [...] encounter Miscellaneous Notes * Telephone Encounter - Cheyanne Weller (Gato), GATO - 09/28/2019 3:33 PM EDT Pt's spouse called Please disregard Adometry By Googlehart message Will call tomorrow for same day VVA No other concerns documented in this encounter Plan of Treatment Upcoming Encounters Date Type Department Care Team (Latest Contact Info) Description 09/24/2024 6:00 PM EDT [address] [address] Basim White MD [address] [place] [address] 3 month follow up 11/28/2024 9:40 AM EDT [facility] Endocrinology [place] [address] [place] [address] [place] [address] [address] Type one diabetes pump and cgm follow up 12/20/2024 4:00 PM EDT [address] [address] Christiana Sims PA-C [address] [place] [address] 6 Month follow up and yearly physical 03/04/2025 5:20 PM EST Office Visit [address] [address] Basim White MD [address] [place] [address] 12 month follow up documented as of this encounter Goals Goal Patient Goal Type Associated Problems Recent Progress Patient-Stated? Author Care Coordination - Diabetes Care Coordination Counseling and coordination of care No Morena Jara, RN Note: Knows type of diabetes. (e.g. [...] Reviewed on date: December 11, 2013 MORENA JARA, JIE documented as of this encounter Visit Diagnoses Not on filedocumented in this encounter Additional Health Concerns Infection Onset Date Last Indicated Resolved Time COVID-19 Rule-Out 03/22/2020 03/22/2020 03/23/2020 7:16 PM EST COVID-19 Confirmed 02/26/2021 02/26/2021 8:51 PM EST documented as of this encounter Care Teams Jacquard Fixer Relationship Specialty Start Date End Date Basim White MD [address] [place] [address] PCP - General Family Medicine 08/09/17 Nate Joyce DO Sql Server Bi Developer 02/09/13 Paulie Sandra MD [address] [address] Primary Staff Physician Cardiology 07/04/18 Teagan Henriquez, RN [address] [place] [address] Primary Care Baler Internal Medicine 06/22/23 07/21/23 [employer], COIN DEALER.APRON WORKER [address] [place] [address] Staking Technician Family Medicine 03/26/24 07/04/24 Leeanne Balderas, COIN DEALER.APRON WORKER [address] [place] [address] Staking Technician Family Medicine 03/26/24 07/04/24 Juanita Luong PA-C [address] [place] [address] Staking Technician Family Medicine 03/26/24 07/04/24 Rubi Rodriguez, COIN DEALER.APRON WORKER [address] [place] [address] Staking Technician Family Medicine 03/26/24 07/04/24 Christiana Sims PA-C [address] [place] [address] Staking Technician Family Medicine 03/26/24 Tami Vazquez PA-C [id number] [place] [address] Staking Technician Family Medicine 06/07/24 07/04/24 Juanita Luong PA-C [address] [place] [address] Staking Technician Family Medicine 07/11/24 07/25/24 Awa Sanchez PA-C [address] [place] [address] Staking Technician Internal Medicine 09/03/24 documented as of this encounter
--- OUTSIDE RECORDS SUMMARY | 2024-09-09 00:43 | XMS_ITS | Encounter Summary ---
Author Organization [facility] Address [address] [place], [place] [id number] Care Team Providers Care Press Operator Carbon Blocks Name Role Phone IsiahNate greenfield Cecelia OSBORNE Unavailable [phone] Basim White MD Primary Care Provider Paulie Sandra MD Unavailable Teagan Henriquez RN Unavailable [employer] TERRAZZO LABORER.CHAIRMAN & CEO Unavailable Leeanne Balderas TERRAZZO LABORER.CHAIRMAN & CEO Unavailable [phone] Juanita Luong PA-C Unavailable Rubi Rodriguez TERRAZZO LABORER.CHAIRMAN & CEO Unavailable Christiana Sims PA-C Unavailable Tami Vazquez PA-C Unavailable [phone] Juanita Luong PA-C Unavailable Awa Sanchez PA-C Unavailable Source Comments In the event this information is protected by the Federal Confidentiality of Alcohol and Drug AbusePatient Records regulations: The Federal rules restrict any use of the information to criminally investigate or prosecute any alcohol or drug abuse patient.[facility] Encounter Details Date Type Department Care Team (Late st Contact Info) Description 12/13/2020 Get Medical Advice Family Medicine [facility] [address] [place], [place] [id number] Basim White MD [address] [place], [place] [id number] RE: Visit Follow Up Question Social History [...] often do you attend chur ch or restorationism services? More than 4 times per year 09/29/2019 Do you belong to any clubs o r organizations such as confucianist groups, unions, fraternal or athletic groups, or school groups? No 09/29/2019 How often do you attend meet ings of the clubs or organizations you belong to? Never 09/29/2019 Are you , , di vorced, , never , or living with a partner? 09/29/2019 PHQ-2 Answer Date Recorded PHQ-2 score 0 02/04/2020 [facility] [place] of Occupat ional Health - Occupational Stress [...] place to sleep or slept in a senior care (including now)? Patient refused 03/22/2020 Area Deprivation Index Answer Date Sergio rded National Score (1-100), lower number is lower ri sk Not on file 03/22/2020 State Score (1-10), lower number is lower risk N ot on file 03/22/2020 Data from: https://www.neighborhoodatlas.medicine.[facility].edu/. Last address used for calculation Not on [...] Industry Job Start Date Job End Date [employer] Not on file Not on file Not on file disability since 07/2015 (off work since 11/2013) Not on file Not on file Not on file COVID-19 Exposure Response Date Recorded In the last month, have you been in contact with someone who was confirmed or suspected to have Coronavirus / COVID-19? No / Unsure 11/14/2020 9:30 AM EDT documented as of this encounter Functional [...] encounter Miscellaneous Notes * Telephone Encounter - Elizabeth Kelly (Adrian) - 12/15/2020 10:25 AM EDT Last Office Visit:11/14/2020 Next Office Visit:no upcoming appt Recent Labs: documented in this encounter Plan of Treatment Upcoming Encounters Date Type Department Care Team (Latest Contact Info) Description 09/24/2024 6:00 PM EDT [facility] [place] [place] [address] [place] [address] Basim White MD [address] [place] [address] 3 month follow up 11/28/2024 9:40 AM EDT [facility] Endocrinology [place] [address] [place] [address] [place] [address] [address] Type one diabetes pump and cgm follow up 12/20/2024 4:00 PM EDT [facility] [place] [place] [address] [place] [address] Christiana Sims PA-C [address] [place] [address] 6 Month follow up and yearly physical 03/04/2025 5:20 PM EST Office Visit Family Medicine [facility] [address] [place] [address] Basim White MD [address] [place] [address] 12 month follow up documented as of this encounter Goals Goal Patient Goal Type Associated Problems Recent Progress Patient-Stated? Author Care Coordination - Diabetes Care Coordination Counseling and coordination of care Morena Velarde, JIE Note: Knows type of diabetes. 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 Additional Health Concerns Infection Onset Date Last Indicated Resolved Time COVID-19 Confirmed 02/26/2021 02/26/2021 8:51 PM EST documented as of this encounter Care Teams Press Operator Carbon Blocks Relationship Specialty Start Date End Date Basim White MD [address] [place] [address] PCP - General Family Medicine 08/09/17 Nate Joyce DO Developing Machine Tender 02/09/13 Paulie Sandra MD [address] [address] Primary Staff Physician Cardiology 07/04/18 Teagan Henriquez, RN [address] [place] [address] Primary Care Clinical Laboratory Medical Director Internal Medicine 06/22/23 07/21/23 [employer], TERRAZZO LABORER.CHAIRMAN & CEO [address] [place] [address] Production Truck Driver Family Medicine 03/26/24 07/04/24 Leeanne Balderas, TERRAZZO LABORER.CHAIRMAN & CEO [address] [place] [address] Production Truck Driver Family Medicine 03/26/24 07/04/24 Juanita Luong PA-C [address] [place] [address] Production Truck Driver Family Medicine 03/26/24 07/04/24 Rubi Rodriguez, TERRAZZO LABORER.CHAIRMAN & CEO [address] [place] [address] Production Truck Driver Family Medicine 03/26/24 07/04/24 Christiana Sims PA-C [facility] [place] [address] Production Truck Driver Family Medicine 03/26/24 Tami Vazquez PA-C [address] [place], [place] [id number] [facility] Family Medicine 06/07/24 07/04/24 Juanita Luong PA-C [address] [place], [place] [id number] [facility] Family [facility] 07/11/24 07/25/24 Awa Sanchez PA-C [address] [place] [id number] [facility] Internal Medicine 09/03/24 documented as of this encounter
--- OUTSIDE RECORDS SUMMARY | 2024-09-09 00:43 | XMS_ITS | Encounter Summary ---
Author Organization [facility] Address [address] [place], [place] [address] Care Team Providers Care School Plant Consultant Name Role Phone IsiahNate greenfield Cecelia OSBORNE Unavailable [phone] Basim White MD Primary Care Provider Paulie Sandra MD Unavailable Teagan Henriquez RN Unavailable [employer] BOARD OF EDUCATION SECRETARY.CONDUCTOR SLEEPING CAR Unavailable Leeanne Balderas BOARD OF EDUCATION SECRETARY.CONDUCTOR SLEEPING CAR Unavailable [phone] Juanita Luong PA-C Unavailable Rubi Rodriguez BOARD OF EDUCATION SECRETARY.CONDUCTOR SLEEPING CAR Unavailable Christiana Sims PA-C Unavailable Tami Vazquez PA-C Unavailable [phone] Juanita Luong PA-C Unavailable Awa Sanchez PA-C Unavailable Source Comments In the event this information is protected by the Federal Confidentiality of Alcohol and Drug AbusePatient Records regulations: The Federal rules restrict any use of the information to criminally investigate or prosecute any alcohol or drug abuse patient.[facility] Encounter Details Date Type Department Care Team (Kathryn saini Contact Info) Description 06/23/2021 Patient Msg Endocrinology [address] [place] [address] Provider, Ccf Dexcom sharing code Social History Tobacco Use Types Packs/Day Years [...] How often do you attend chur or jewish services? More than 4 times per year 09/29/2019 Do you belong to any clubs o r organizations such as latter day groups, unions, fraternal or athletic groups, or school groups? No 09/29/2019 How often do you attend meet ings of the clubs or organizations you belong to? Never 09/29/2019 Are you , , di vorced, , never , or living with a partner? 09/29/2019 PHQ-2 Answer Date Recorded PHQ-2 score 5 03/03/2021 [facility] Questionnaire Answer Date Recorded [...] place to sleep or slept in a snf (including now)? No 03/03/2021 Area Deprivation Index Answer Date Sergio rded National Score (1-100), lower number is lower ri sk Not on file 03/22/2020 State Score (1-10), lower number is lower risk N ot on file 03/22/2020 Data from: https://www.neighborhoodatlas.medicine.[facility]/. Last address used for calculation Not on [...] Industry Job Start Date Job End Date [employer] Not on file Not on file Not on file disability since 07/2015 (off work since 11/2013) Not on file Not on file Not on file documented as of this encounter Functional Status * Are you deaf or do you have serious difficulty hearing? Answer Date of Assessment Author No 01/25/2017 3:55 PM Osmany Hart RN * Are you blind or do you have serious difficulty seeing, even when wearing glasses? Answer Date of Assessment Author No 01/25/2017 3:55 PM Osmany Hart RN * Do you have serious difficulty walking or climbing stairs? Answer Date of Assessment Author No 01/25/2017 3:55 PM Osmany Hart RN * Do you have difficulty dressing or bathing? Answer Date of Assessment Author No 01/25/2017 3:55 PM Osmany Hart RN * Because of a physical, mental, or emotional condition, do you have difficulty doing errands alone such as visiting a doctor's office or shopping? Answer Date of Assessment Author No 01/25/2017 3:55 PM Osmany Hart RN documented as of this encounter Mental Status * Because of a physical, mental, or emotional condition, do you have serious difficulty concentrating, remembering, or making decisions? Answer Entry Date Author No 01/25/2017 3:55 PM EDT Osmany Ireland RN documented in this encounter Plan of Treatment Upcoming Encounters Date Type Department Care Team (Latest Contact Info) Description 09/24/2024 6:00 PM EDT [address] [address] Basim White MD [address] [place] [address] 3 month follow up 11/28/2024 9:40 AM EDT [facility] Endocrinology [place] [address] [place] [address] [place] [address] [address] Type one diabetes pump and cgm follow up 12/20/2024 4:00 PM EDT [address] [address] Christiana Sims PA-C [address] [place] [address] 6 Month follow up and yearly physical 03/04/2025 5:20 PM EST Office Visit [address] [address] Basim White MD [address] [place] [address] 12 month follow up documented as of [...] on filedocumented in this encounter Care Teams School Plant Consultant Relationship Specialty Start Date End Date Basim White MD [address] [place] [address] PCP - General Family Medicine 08/09/17 Nate Joyce DO Nuclear Radiation Engineer 02/09/13 Paulie Sandra MD [address] [address] Primary Staff Physician Cardiology 07/04/18 Teagan Henriquez, JIE [address] [place], [place] [phone] Primary Care Mixer Crane Operator Internal Medicine 06/22/23 07/21/23 [employer] APRN.CONDUCTOR SLEEPING CAR [address] [place] [address] Mobile Therapist Family Medicine 03/26/24 07/04/24 Leeanne Balderas APRN.CONDUCTOR SLEEPING CAR [address] [place] [address] Mobile Therapist Family Medicine 03/26/24 07/04/24 Juanita Luong PA-C [id number] [place] [address] Mobile Therapist Family Medicine 03/26/24 07/04/24 Rubi Rodriguez, ISABELLA.CONDUCTOR SLEEPING CAR [address] [place] [address] Mobile Therapist Family Medicine 03/26/24 07/04/24 Christiana Sims PA-C [address] [place] [address] Mobile Therapist Family Medicine 03/26/24 Tami Vazquez PA-C [address] [place] [address] Mobile Therapist Family Medicine 06/07/24 07/04/24 Juanita Luong PA-C [address] [place] [address] Mobile Therapist Family Medicine 07/11/24 07/25/24 Awa Sanchez PA-C [address] [place] [address] Mobile Therapist Internal Medicine 09/03/24 documented as of this encounter
--- OUTSIDE RECORDS SUMMARY | 2024-09-09 00:43 | XMS_ITS | Encounter Summary ---
Author Organization [facility] Address [address] [place], [place] [address] Care Team Providers Care Ep Specialist Name Role Phone IsiahNate greenfield Cecelia OSBORNE Unavailable [phone] Basim White MD Primary Care Provider Paulie Sandra MD Unavailable [phone] Teagan Henriquez RN Unavailable [employer] EVALUATOR TRANSFER STUDENTS.JOURNEYMAN POWERHOUSE OPERATOR Unavailable Leeanne Balderas EVALUATOR TRANSFER STUDENTS.JOURNEYMAN POWERHOUSE OPERATOR Unavailable [phone] Juanita Luong PA-C Unavailable Rubi Rodriguez EVALUATOR TRANSFER STUDENTS.JOURNEYMAN POWERHOUSE OPERATOR Unavailable Christiana Sims PA-C Unavailable Tami Vazquez PA-C Unavailable [phone] Juanita Luong PA-C Unavailable Awa Sanchez PA-C Unavailable Source Comments In the event this information is protected by the Federal Confidentiality of Alcohol and Drug AbusePatient Records regulations: The Federal rules restrict any use of the information to criminally investigate or prosecute any alcohol or drug abuse patient.[facility] Encounter Details Date Type Department Care Team (Late st Contact Info) Description 08/30/2019 Get Medical Advice Family Medicine [facility] [address] [place] [address] Basim White MD [address] [place], [place] [id number] RE: Visit Follow Up Question Social History [...] Industry Job Start Date Job End Date [employer] Not on file Not on file Not [...] Assessment Author No 01/25/2017 3:55 PM EDT Ireland, Osmany ah, RN documented as of this encounter Mental Status * Because of a physical, mental, or emotional condition, do you have serious difficulty concentrating, remembering, or making decisions? Answer Entry Date Author No 01/25/2017 3:55 PM EDT Osmany Ireland RN documented in this encounter Miscellaneous Notes * Telephone Encounter - Basim White - 08/30/2019 8:01 AM EDT The following approved medication requests have been transmitted electronically. Signed Prescriptions Disp Refills fluconazole (DIFLUCAN) 150 mg tablet 2 tablet 0 Sig: One tab q 3 days prn. Basim White MD * Telephone Encounter - Uma Man (Rn), RN - 08/30/2019 7:24 AM EDT Patient has been identified by name and date of : Yes Patient phones requesting refills as follows: Pending Prescriptions Disp Refills FLUCONAZOLE 150 MG TABLET 2 tablet 0 Sig: Take 1 tablet by mouth one time only for 1 dose. Last appointment: 01/19/2019 Next scheduled appointment: Appointments for Next 60 Days Date Time Provider Location Dept Phone 09/25/2019 2:00 PM YASHIRA COLLINS JAMIL [phone] RX INSTRUCTIONS: Respond to pharmacy only and close encounter Uma Man RN documented in this encounter Plan of Treatment Upcoming Encounters Date Type Department Care Team (Latest Contact Info) Description 09/24/2024 6:00 PM EDT [facility] Medicine [place] [address] [place], [place] [phone] Basim White MD [address] [place] [address] 3 month follow up 11/28/2024 9:40 AM EDT [facility] Endocrinology [place] [address] [place] [phone] [place] [address] [address] Type one diabetes pump and cgm follow up 12/20/2024 4:00 PM EDT [facility] [address] [place] [address] Christiana Sims PA-C [address] [place] [address] 6 Month follow up and yearly physical 03/04/2025 5:20 PM EST Office Visit [facility] [address] [place] [address] Basim White MD [address] [place] [address] 12 month follow up documented as of [...] documented as of this encounter Care Teams Ep Specialist Relationship Specialty Start Date End Date Basim White MD [address] [place] [address] PCP - General Family Medicine 08/09/17 Nate Joyce DO Major Gifts Officer 02/09/13 Paulie Sandra MD [address] [phone] Primary Staff Physician Cardiology 07/04/18 Teagan Henriquez, JIE [address] [place] [address] Primary Care Bottle Filler Internal Medicine 06/22/23 07/21/23 [employer], EVALUATOR TRANSFER STUDENTS.JOURNEYMAN POWERHOUSE OPERATOR [address] [place] [address] [facility] 03/26/24 07/04/24 Leeanne Balderas, EVALUATOR TRANSFER STUDENTS.JOURNEYMAN POWERHOUSE OPERATOR [address] [place] [address] [facility] 03/26/24 07/04/24 Juanita Luong PA-C [address] [place] [address] [facility] 03/26/24 07/04/24 Rubi Rodriguez APRN.JOURNEYMAN POWERHOUSE OPERATOR [address] [place] [address] [facility] 03/26/24 07/04/24 Christiana Sims PA-C [address] [place] [address] [facility] 03/26/24 Tami Vazquez PA-C [address] [place] [address] [facility] 06/07/24 07/04/24 Juanita Luong PA-C [address] [place] [address] [facility] 07/11/24 07/25/24 Awa Sanchez PA-C [address] [place] [address] [facility] 09/03/24 documented as of this encounter
--- OUTSIDE RECORDS SUMMARY | 2024-09-09 00:43 | XMS_ITS | Encounter Summary ---
Author Organization [facility] Address [address] [place], [place] [address] Care Team Providers Care Floor Covering Printer Name Role Phone IsiahNate greenfield Cecelia OSBORNE Unavailable [phone] Basim White MD Primary Care Provider Paulie Sandra MD Unavailable Teagan Henriquez RN Unavailable [employer] VULNERABILITY RESEARCHER.LINE FISHER Unavailable Leeanne Balderas VULNERABILITY RESEARCHER.LINE FISHER Unavailable [phone] Juanita Luong PA-C Unavailable Rubi Rodriguez VULNERABILITY RESEARCHER.LINE FISHER Unavailable Christiana Sims PA-C Unavailable Tami Vazquez PA-C Unavailable [phone] Juanita Luong PA-C Unavailable Awa Sanchez PA-C Unavailable Source Comments In the event this information is protected by the Federal Confidentiality of Alcohol and Drug AbusePatient Records regulations: The Federal rules restrict any use of the information to criminally investigate or prosecute any alcohol or drug abuse patient.[facility] Encounter Details Date Type Department Care Team (Kathryn saini Contact Info) Description 08/28/2019 Patient Msg Family Medicine [facility] [address] [place] [address] Provider, Ccf Refill request Social History Tobacco Use Types Packs/Day Years [...] Industry Job Start Date Job End Date [employer] Not on file Not on file Not [...] Contact Info) Description 09/24/2024 6:00 PM EDT [address] [address] Basim White MD [address] [place] [address] 3 month follow up 11/28/2024 9:40 AM EDT [facility] Endocrinology [place] [address] [place] [address] [place] [address] [address] Type one diabetes pump and cgm follow up 12/20/2024 4:00 PM EDT [address] [address] Christiana Sims PA-C [address] [place] [address] 6 Month follow up and yearly physical 03/04/2025 5:20 PM EST Office Visit [address] [address] Basim White MD [address] [place] [address] 12 month follow up documented as of [...] documented as of this encounter Care Teams Floor Covering Printer Relationship Specialty Start Date End Date Basim White MD [address] [place] [address] PCP - General Family Medicine 08/09/17 Nate Joyce DO Quality Technician Fiberglass 02/09/13 Paulie Sandra MD [address] [address] Primary Staff Physician Cardiology 07/04/18 Teagan Henriquez, JIE 6000 [place] [address] Primary Care Converter Supervisor Internal Medicine 06/22/23 07/21/23 [employer], VULNERABILITY RESEARCHER.LINE FISHER [address] [place] [address] Electronic Industrial Controls Mechanic Family Medicine 03/26/24 07/04/24 Leeanne Balderas, VULNERABILITY RESEARCHER.LINE FISHER [address] [place] [address] Electronic Industrial Controls Mechanic Family Medicine 03/26/24 07/04/24 Juanita Luong PA-C [address] [place] [address] Electronic Industrial Controls Mechanic Family Medicine 03/26/24 07/04/24 Rubi Rodriguez, VULNERABILITY RESEARCHER.LINE FISHER [address] [place] [address] Electronic Industrial Controls Mechanic Family Medicine 03/26/24 07/04/24 Christiana Sims PA-C [address] [place] [address] Electronic Industrial Controls Mechanic Family Medicine 03/26/24 Tami Vazquez PA-C [address] [place] [address] Electronic Industrial Controls Mechanic Family Medicine 06/07/24 07/04/24 Juanita Luong PA-C [address] [place] [address] Electronic Industrial Controls Mechanic Family Medicine 07/11/24 07/25/24 Awa Sanchez PA-C [address] [place] [address] Electronic Industrial Controls Mechanic Internal Medicine 09/03/24 documented as of this encounter
--- OUTSIDE RECORDS SUMMARY | 2024-09-09 00:43 | XMS_ITS | Encounter Summary ---
Author Organization [facility] Address [address] [place], [place] [address] Care Team Providers Care Contact Manager Name Role Phone IsiahNate greenfield Cecelia OSBORNE Unavailable [phone] Basim White MD Primary Care Provider Paulie Sandra MD Unavailable Teagan Henriquez RN Unavailable Pascale Kc RESOLUTION EXPERT.PHILOSOPHY SPECIALIST Unavailable Leeanne Balderas RESOLUTION EXPERT.PHILOSOPHY SPECIALIST Unavailable [phone] Juanita Luong PA-C Unavailable Rubi Rodriguez RESOLUTION EXPERT.PHILOSOPHY SPECIALIST Unavailable Christiana Sims PA-C Unavailable Tami Vazquez PA-C Unavailable [phone] Juanita Luong PA-C Unavailable Awa Sanchez PA-C Unavailable Source Comments In the event this information is protected by the Federal Confidentiality of Alcohol and Drug AbusePatient Records regulations: The Federal rules restrict any use of the information to criminally investigate or prosecute any alcohol or drug abuse patient.[facility] Encounter Details Date Type Department Care Team (Late Contact Info) Description 09/19/2020 Get Medical Advice General Surgery BMI PSYL [address] [place] [address] Nohemy Katz, PhD [address] [place] [address] RE: Visit Follow Up Question Social History [...] How often do you attend chur or amish services? More than 4 times per year 09/29/2019 Do you belong to any clubs o r organizations such as buddhism groups, unions, fraternal or athletic groups, or school groups? No 09/29/2019 How often do you attend meet ings of the clubs or organizations you belong to? Never 09/29/2019 Are you , , di vorced, , never , or living with a partner? 09/29/2019 PHQ-2 Answer Date Recorded PHQ-2 score 0 02/04/2020 [facility] - Occupational [...] place to sleep or slept in a prison (including now)? Patient refused 03/22/2020 Area Deprivation Index Answer Date Sergio rded National Score (1-100), lower number is lower ri sk Not on file 03/22/2020 State Score (1-10), lower number is lower risk N ot on file 03/22/2020 Data from: https://www.neighborhoodatlas.medicine.[facility].edu/. Last address used for calculation Not on [...] Industry Job Start Date Job End Date MAKAH Not on file Not on file Not [...] Contact Info) Description 09/24/2024 6:00 PM EDT [address] [address] Basim White MD [address] [place] [address] 3 month follow up 11/28/2024 9:40 AM EDT [facility] [place] [address] [place] [address] [place] [address] [address] Type one diabetes pump and cgm follow up 12/20/2024 4:00 PM EDT [address] [address] Christiana Sims PA-C [address] [place] [address] 6 Month follow up and yearly physical 03/04/2025 5:20 PM EST Office Visit [address] [address] Basim White MD [address] [place] [address] 12 month follow up documented as of this encounter Goals Goal Patient Goal Type Associated Problems Recent Progress Patient-Stated? Author Care Coordination - Diabetes Care Coordination Counseling and coordination of care No Estefani, Morena M, RN Note: Knows type of diabetes. [...] documented as of this encounter Care Teams Contact Manager Relationship Specialty Start Date End Date Basim White MD [address] [place] [address] PCP - General Family Medicine 08/09/17 Nate Joyce DO Freight Service Inspector 02/09/13 Paulie Sandra MD [address] [address] Primary Staff Physician Cardiology 07/04/18 Teagan Henriquez, RN [address] [place] [address] Primary Care Sports Equipment Racker Internal Medicine 06/22/23 07/21/23 Pascale Kc, RESOLUTION EXPERT.PHILOSOPHY SPECIALIST [address] [place] [address] Beet Worker Family Medicine 03/26/24 07/04/24 Leeanne Balderas, RESOLUTION EXPERT.PHILOSOPHY SPECIALIST [address] [place] [address] Beet Worker Family Medicine 03/26/24 07/04/24 Juanita Luong PA-C [address] [place] [address] Beet Worker Family Medicine 03/26/24 07/04/24 Rubi Rodriguez, RESOLUTION EXPERT.PHILOSOPHY SPECIALIST [address] [place] [address] Beet Worker Family Medicine 03/26/24 07/04/24 Christiana Sims PA-C [address] [place] [address] Beet Worker Family Medicine 03/26/24 Tami Vazquez PA-C [address] [place] [address] Beet Worker Family Medicine 06/07/24 07/04/24 Juanita Luong PA-C [address] [place] [address] Beet Worker Family Medicine 07/11/24 07/25/24 Awa Sanchez PA-C [address] [place] [address] Beet Worker Internal Medicine 09/03/24 documented as of this encounter
--- OUTSIDE RECORDS SUMMARY | 2024-09-09 00:43 | XMS_ITS | Encounter Summary ---
Author Organization [facility] Address [address] [place], [place] [address] Care Team Providers Care Industry Operations Investigator Name Role Phone IsiahNate greenfield Cecelia OSBORNE Unavailable [phone] Basim White MD Primary Care Provider Paulie Sandra MD Unavailable Teagan Henriquez RN Unavailable [employer] K[employer] NETWORK ANALYST.MACHINE TOOL MECHANIC Unavailable Leeanne Balderas NETWORK ANALYST.MACHINE TOOL MECHANIC Unavailable [phone] Juanita Luong PA-C Unavailable Rubi Rodriguez NETWORK ANALYST.MACHINE TOOL MECHANIC Unavailable Christiana Sims PA-C Unavailable Tami Vazquez PA-C Unavailable [phone] Juanita Luong PA-C Unavailable Awa Sanchez PA-C Unavailable Source Comments In the event this information is protected by the Federal Confidentiality of Alcohol and Drug AbusePatient Records regulations: The Federal rules restrict any use of the information to criminally investigate or prosecute any alcohol or drug abuse patient.[facility] Encounter Details Date Type Department Care Team (Kathryn saini Contact Info) Description 05/25/2021 Patient Msg Home Respiratory Therapy [address] [facility] [place] [address] Provider, Ccf pap pressure change Social History Tobacco Use Types Packs/Day Years [...] How often do you attend chur or restoration services? More than 4 times per year 09/29/2019 Do you belong to any clubs o r organizations such as temple groups, unions, fraternal or athletic groups, or [...] or slept in a mcfp (including now)? No 03/03/2021 Area Deprivation Index Answer Date Sergio rded National Score (1-100), lower number is lower ri sk Not on file 03/22/2020 State Score (1-10), lower number is lower risk N ot on file 03/22/2020 Data from: https://www.neighborhoodatlas.medicine.[facility]/. 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 Not on file Not [...] Contact Info) Description 09/24/2024 6:00 PM EDT [address] [address] Basim White MD [address] [place] [address] 3 month follow up 11/28/2024 9:40 AM EDT [facility] Endocrinology [place] [address] [place] [address] [place] [address] [address] Type one diabetes pump and cgm follow up 12/20/2024 4:00 PM EDT [address] [address] Christiana Sims PA-C [address] [place] [address] 6 Month follow up and yearly physical 03/04/2025 5:20 PM EST Office Visit [address] [address] Basim White MD [address] [place] [address] 12 month follow up documented as of [...] on filedocumented in this encounter Care Teams Industry Operations Investigator Relationship Specialty Start Date End Date Basim White MD [address] [place] [address] PCP - General Family Medicine 08/09/17 Nate Joyce DO Bottled Beverage Inspector 02/09/13 Paulie Sandra MD [address] [phone] Primary Staff Physician Cardiology 07/04/18 Teagan Henriquez, JIE [address] [place], [place] [address] Primary Care Hot Metal Charger Internal Medicine 06/22/23 07/21/23 Pascale Kc APRN.MACHINE TOOL MECHANIC [address] [place] [address] Divorce Lawyer Family Medicine 03/26/24 07/04/24 Leeanne Balderas APRN.MACHINE TOOL MECHANIC [address] [place] [address] Divorce Lawyer Family Medicine 03/26/24 07/04/24 Juanita Luong PA-C [id number] [place] [address] Divorce Lawyer Family Medicine 03/26/24 07/04/24 Rubi Rodriguez, ISABELLA.MACHINE TOOL MECHANIC [address] [place] [address] Divorce Lawyer Family Medicine 03/26/24 07/04/24 Christiana Sims PA-C [address] [place] [address] Divorce Lawyer Family Medicine 03/26/24 Tami Vazquez PA-C [address] [place] [address] Divorce Lawyer Family Medicine 06/07/24 07/04/24 Juanita Luong PA-C [address] [place] [address] Divorce Lawyer Family Medicine 07/11/24 07/25/24 Awa Sanchez PA-C [address] [place] [address] Divorce Lawyer Internal Medicine 09/03/24 documented as of this encounter
--- OUTSIDE RECORDS SUMMARY | 2024-09-09 00:43 | XMS_ITS | Encounter Summary ---
Author Organization [facility] Address [address] [place], [place] [address] Care Team Providers Care Check Grader Name Role Phone IsiahNate greenfield Cecelia OSBORNE Unavailable [phone] Basim Navarro MD Primary Care Provider [phone] Paulie Sandra MD Unavailable Teaagn Henriquez RN Unavailable Pascale Kc FIRMWARE ENGINEER.MECHANICAL MAINTENANCE SUPERVISOR Unavailable Leeanne Balderas FIRMWARE ENGINEER.MECHANICAL MAINTENANCE SUPERVISOR Unavailable [phone] Juanita Luong PA-C Unavailable Rubi Rodriguez FIRMWARE ENGINEER.MECHANICAL MAINTENANCE SUPERVISOR Unavailable Christiana Sims PA-C Unavailable Tami Vazqeuz PA-C Unavailable [phone] Juainta Luong PA-C Unavailable Awa Sanchez PA-C Unavailable Source Comments In the event this information is protected by the Federal Confidentiality of Alcohol and Drug AbusePatient Records regulations: The Federal rules restrict any use of the information to criminally investigate or prosecute any alcohol or drug abuse patient.[facility] Encounter Details Date Type Department Care Team (Late Contact Info) Description 10/22/2019 Get Medical Advice Family Medicine [address] [place] [address] Basim Navarro MD [address] [place], [place] [id number] RE: Medication Question (Not Renewal) Social History Tobacco Use Types Packs/Day Years [...] often do you attend chur ch or jainism services? More than 4 times per year 09/29/2019 Do you belong to any clubs o r organizations such as quaker groups, unions, fraternal or athletic groups, or school groups? No 09/29/2019 How often do you attend meet ings of the clubs or organizations you belong to? Never 09/29/2019 Are you , , di vorced, , never , or living with a partner? 09/29/2019 [facility] - Occupational Stress [...] or slept in a usp (including now)? Patient refused 09/29/2019 Education Answer Date Recorded What is the [...] Industry Job Start Date Job End Date [employer] Not on file Not on file Not [...] Miscellaneous Notes * Telephone Encounter - Basim Navarro - 10/23/2019 7:06 AM EDT OARRS website checked and validated No suspicious or unusual activity noted.- October 23, 2019 by Basim Navarro MD Patient's request for medication is as follows: Signed Prescriptions Disp Refills diazePAM (VALIUM) 5 mg tablet 60 tablet 2 Sig: Take one(1) tablet two(2) times daily as needed. VIBHA Class: C-IV ARCHANA: No Basim Navarro MD * Telephone Encounter - Yuridia Peoples) - 10/23/2019 6:51 AM EDT Patient has been identified by name and date of : Yes Patient phones requesting refills as follows: Pending Prescriptions Disp Refills DIAZEPAM 5 MG TABLET 60 tablet 2 Sig: Take one(1) tablet two(2) times daily as needed. VIBHA Class: C-IV ARCHANA: No Last appointment: 09/29/19 Next scheduled appointment: Appointments for Next 60 Days Date Time Provider Location Dept Phone 11/30/2019 4:20 PM BASIM NAVARRO [facility] [phone] RX INSTRUCTIONS: Respond to pharmacy only and close encounter Yuridia Peoples Ma documented in this encounter Plan of Treatment Upcoming Encounters Date Type Department Care Team (Latest Contact Info) Description 09/24/2024 6:00 PM EDT [facility] Medicine Cost [address] [place], [place] [phone] Basim Navarro MD [address] [place] [address] 3 month follow up 11/28/2024 9:40 AM EDT [facility] Endocrinology [place] [address] [place] [address] [place] [address] [facility] [address] [place] [address] Type one diabetes pump and cgm follow up 12/20/2024 4:00 PM EDT [facility] [address] [place] [address] Christiana Sims PA-C [address] [place] [address] 6 Month follow up and yearly physical 03/04/2025 5:20 PM EST Office Visit [facility] [address] [place] [address] Basim Navarro MD [address] [place] [address] 12 month follow up documented as of [...] documented as of this encounter Care Teams Check Grader Relationship Specialty Start Date End Date Basim Navarro MD [address] [place] [address] PCP - General Family Medicine 08/09/17 Nate Joyce DO Arc Furnace Operator 02/09/13 Paulie Sandra MD [address] [phone] Primary Staff Physician Cardiology 07/04/18 Teagan Henriquez, RN [address] [place], [place] [address] Primary Care Wood Panel Inspector Internal Medicine 06/22/23 07/21/23 Pascale Kc, FIRMWARE ENGINEER.MECHANICAL MAINTENANCE SUPERVISOR [address] [place] [address] Instrument Panel Assembler Family Medicine 03/26/24 07/04/24 Leeanne Balderas APRN.MECHANICAL MAINTENANCE SUPERVISOR [address] [place] [address] Instrument Panel Assembler Family Medicine 03/26/24 07/04/24 Juanita Luong PA-C [address] [place] [address] Instrument Panel Assembler Family Medicine 03/26/24 07/04/24 Rubi Rodriguez APRN.CNP [address] [place] [address] Instrument Panel Assembler Family Medicine 03/26/24 07/04/24 Christiana Sims PA-C [address] [place] [address] Instrument Panel Assembler Family Medicine 03/26/24 Tami Vazquez PA-C [address] [place] [address] Instrument Panel Assembler Family Medicine 06/07/24 07/04/24 Juanita Luong PA-C [address] [place] [address] Instrument Panel Assembler Family Medicine 07/11/24 07/25/24 Awa Sanchez PA-C [address] [place] [address] Instrument Panel Assembler Internal Medicine 09/03/24 documented as of this encounter
--- OUTSIDE RECORDS SUMMARY | 2024-09-09 00:44 | XMS_ITS | Encounter Summary ---
Author Organization [facility] Address [address] [place], [place] [address] Care Team Providers Care Rotor Casting Machine Operator Name Role Phone IsiahNate greenfield Cecelia OSBORNE Unavailable [phone] Basim White MD Primary Care Provider Paulie Sandra MD Unavailable [phone] Teagan Henriquez RN Unavailable Pascale Kc FLEXIBLE MACHINING SYSTEM MACHINIST.SOLUTIONS DEVELOPMENT ANALYST Unavailable Leeanne Balderas FLEXIBLE MACHINING SYSTEM MACHINIST.SOLUTIONS DEVELOPMENT ANALYST Unavailable [phone] Juanita Luong PA-C Unavailable Rubi Rodriguez FLEXIBLE MACHINING SYSTEM MACHINIST.SOLUTIONS DEVELOPMENT ANALYST Unavailable Christiana Sims PA-C Unavailable Tami Vazquez PA-C Unavailable [phone] Juanita Luong PA-C Unavailable Awa Sanchez PA-C Unavailable Source Comments In the event this information is protected by the Federal Confidentiality of Alcohol and Drug AbusePatient Records regulations: The Federal rules restrict any use of the information to criminally investigate or prosecute any alcohol or drug abuse patient.[facility] Encounter Details Date Type Department Care Team (Late st Contact Info) Description 01/05/2021 Get Medical Advice Family Medicine [place] [address] [place], [place] [phone] Basim White MD [address] [place] [address] RE: Medication Question (Not Renewal) Social History [...] often do you attend chur ch or hoahaoism services? More than 4 times per year 09/29/2019 Do you belong to any clubs o r organizations such as yazidism groups, unions, fraternal or athletic groups, or school groups? No 09/29/2019 How often do you attend meet ings of the clubs or organizations you belong to? Never 09/29/2019 Are you , , di vorced, , never , or living with a partner? 09/29/2019 PHQ-2 Answer Date Recorded PHQ-2 score 0 02/04/2020 [facility] of Occupat ional Health - Occupational Stress [...] place to sleep or slept in a penitentiary (including now)? Patient refused 03/22/2020 Area Deprivation Index Answer Date Sergio rded National Score (1-100), lower number is lower ri sk Not on file 03/22/2020 State Score (1-10), lower number is lower risk N ot on file 03/22/2020 Data from: https://www.neighborhoodatlas.medicine.[facility].edu/. 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 on file Not [...] Telephone Encounter - Elizabeth Kelly (Adrian) - 01/05/2021 5:36 PM EDT Last Office Visit:11/14/2020 Next Office Visit:no upcoming appt Recent Labs: documented in this encounter Plan of Treatment Upcoming Encounters Date Type Department Care Team (Latest Contact Info) Description 09/24/2024 6:00 PM EDT [address] [address] Basim White MD [address] [place] [address] 3 month follow up 11/28/2024 9:40 AM EDT [facility] Endocrinology [place] [address] [place] [address] [place] [address] [address] Type one diabetes pump and cgm follow up 12/20/2024 4:00 PM EDT [address] [address] Christiana Sims PA-C [address] [place] [address] 6 Month follow up and yearly physical 03/04/2025 5:20 PM EST Office Visit [address] [place] [address] Basim White MD [address] [place] [address] 12 month follow up documented as of this encounter Goals Goal Patient Goal Type Associated Problems Recent Progress Patient-Stated? Author Care Coordination - Diabetes Care Coordination Counseling and coordination of care No Morena Jara RN Note: Knows type of diabetes. (e.g. [...] documented as of this encounter Care Teams Rotor Casting Machine Operator Relationship Specialty Start Date End Date Basim White MD [address] [place] [address] PCP - General Family Medicine 08/09/17 Nate Joyce DO Technical Manager Chemical Plant 02/09/13 Paulie Sandra MD [address] [phone] Primary Staff Physician Cardiology 07/04/18 Teagan Henriquez, RN 6[address] [place], [place] [phone] Primary Care Furnace Combustion Tester Internal Medicine 06/22/23 07/21/23 Pascale Kc, FLEXIBLE MACHINING SYSTEM MACHINIST.SOLUTIONS DEVELOPMENT ANALYST [id number] [place] [address] Sheet Metal Duct Installer Apprentice Family [place] 03/26/24 07/04/24 Leeanne Balderas, FLEXIBLE MACHINING SYSTEM MACHINIST.SOLUTIONS DEVELOPMENT ANALYST [address] [place] [address] Sheet Metal Duct Installer Apprentice Family Medicine 03/26/24 07/04/24 Juanita Luong PA-C [address] [place] [address] Sheet Metal Duct Installer Apprentice Family Medicine 03/26/24 07/04/24 Rubi Rodriguez, FLEXIBLE MACHINING SYSTEM MACHINIST.SOLUTIONS DEVELOPMENT ANALYST [address] [place] [address] Sheet Metal Duct Installer Apprentice Family Medicine 03/26/24 07/04/24 Christiana Sims PA-C [address] [place] [address] Sheet Metal Duct Installer Apprentice Family Medicine 03/26/24 Tami Vazquez PA-C [address] [place] [address] Sheet Metal Duct Installer Apprentice Family Medicine 06/07/24 07/04/24 Juanita Luong PA-C [address] [place] [address] Sheet Metal Duct Installer Apprentice Family Medicine 07/11/24 07/25/24 Awa Sanchez PA-C [address] [place] [address] Sheet Metal Duct Installer Apprentice Internal Medicine 09/03/24 documented as of this encounter
--- OUTSIDE RECORDS SUMMARY | 2024-09-09 00:44 | XMS_ITS | Encounter Summary ---
Author Organization [facility] Address [address] [place], [place] [id number] Care Team Providers Care Digital Sales Representative Name Role Phone IsiahNate greenfield Cecelia OSBORNE Unavailable [phone] Basim White MD Primary Care Provider Paulie Sandra MD Unavailable [phone] Teagan Henriquez RN Unavailable Pascale Kc GEOTHERMAL OPERATIONS MANAGER.GENERATOR MAN Unavailable Leeanne Balderas GEOTHERMAL OPERATIONS MANAGER.GENERATOR MAN Unavailable [phone] Juanita Luong PA-C Unavailable Rubi Rodriguez GEOTHERMAL OPERATIONS MANAGER.GENERATOR MAN Unavailable Christaina Sims PA-C Unavailable Tami Vazquez PA-C Unavailable [phone] Juanita Luong PA-C Unavailable Awa Sanchez PA-C Unavailable Source Comments In the event this information is protected by the Federal Confidentiality of Alcohol and Drug AbusePatient Records regulations: The Federal rules restrict any use of the information to criminally investigate or prosecute any alcohol or drug abuse patient.[facility] Encounter Details Date Type Department Care Team (Kathryn saini Contact Info) Description 02/10/2021 Patient Msg Family Medicine [place] [address] [place], [place] [id number] Basim White MD [address] [place] [address] RE: Request an Appointment Social History Tobacco Use Types Packs/Day Years [...] often do you attend chur ch or tenriism services? More than 4 times per year 09/29/2019 Do you belong to any clubs o r organizations such as baptist groups, unions, fraternal or athletic groups, or school groups? No 09/29/2019 How often do you attend meet ings of the clubs or organizations you belong to? Never 09/29/2019 Are you , , di vorced, , never , or living with a partner? 09/29/2019 PHQ-2 Answer Date Recorded PHQ-2 score 0 02/04/2020 [facility] [place] [facility] - Occupational Stress [...] or slept in a snf (including now)? Patient refused 03/22/2020 Area Deprivation Index Answer Date Sergio rded National Score (1-100), lower number is lower ri sk Not on file 03/22/2020 State Score (1-10), lower number is lower risk N ot on file 03/22/2020 Data from: https://www.neighborhoodatlas.medicine.[facility].edu/. Last address used for calculation Not [...] Industry Job Start Date Job End Date [place] Not on file Not on file Not [...] Contact Info) Description 09/24/2024 6:00 PM EDT [address] [address] Basim White MD [address] [place] [address] 3 month follow up 11/28/2024 9:40 AM EDT [facility] [place] [address] [place] [address] [place] [address] [address] Type one diabetes pump and cgm follow up 12/20/2024 4:00 PM EDT [address] [address] Christiana Sims PA-C [address] [place] [address] 6 Month follow up and yearly physical 03/04/2025 5:20 PM EST Office Visit [address] [address] Basim White MD [address] [place] [address] 12 month follow up documented as of [...] documented as of this encounter Care Teams Digital Sales Representative Relationship Specialty Start Date End Date Basim White MD [address] [place] [address] PCP - General Family Medicine 08/09/17 Nate Joyce DO Mechanical Manufacturing Technician 02/09/13 Paulie Sandra MD [address] [address] Primary Staff Physician Cardiology 07/04/18 Teagan Henriquez, RN 6000 [place] [address] Primary Care Shipboard Intelligence Analyst Internal Medicine 06/22/23 07/21/23 Pascale Kc, GEOTHERMAL OPERATIONS MANAGER.GENERATOR MAN [address] [place] [address] Research Instrumentation Technician Family Medicine 03/26/24 07/04/24 Leeanne Balderas, GEOTHERMAL OPERATIONS MANAGER.GENERATOR MAN [address] [place] [address] Research Instrumentation Technician Family Medicine 03/26/24 07/04/24 Juanita Luong PA-C [address] [place] [address] Research Instrumentation Technician Family Medicine 03/26/24 07/04/24 Rubi Rodriguez, GEOTHERMAL OPERATIONS MANAGER.GENERATOR MAN [address] [place] [address] Research Instrumentation Technician Family Medicine 03/26/24 07/04/24 Christiana Sims PA-C [address] [place] [address] Research Instrumentation Technician Family Medicine 03/26/24 Tami Vazquez PA-C [address] [place] [address] Research Instrumentation Technician Family Medicine 06/07/24 07/04/24 Juanita Luong PA-C [address] [place] [address] Research Instrumentation Technician Family Medicine 07/11/24 07/25/24 Awa Sanchez PA-C [facility]2 [place] [id number] Research Instrumentation Technician Internal Medicine 09/03/24 documented as of this encounter
--- OUTSIDE RECORDS SUMMARY | 2024-09-09 00:44 | XMS_ITS | Encounter Summary ---
Author Organization [facility] Address [address] [place], [place] [address] Care Team Providers Care Desulfurizer Hand Name Role Phone Nate Joyce Unavailable [phone] Basim White MD Primary Care Provider Paulie Sandra MD Unavailable Paulie Sandra MD Unavailable Teagan Henriquez RN Unavailable Pascale Kc MANAGER CORPORATE STRATEGY.VACUUM PAN OPERATOR Unavailable Leeanne Balderas MANAGER CORPORATE STRATEGY.VACUUM PAN OPERATOR Unavailable [phone] Juanita Luong PA-C Unavailable Rubi Rodriguez MANAGER CORPORATE STRATEGY.VACUUM PAN OPERATOR Unavailable Christiana Sims PA-C Unavailable Tami Vazquez PA-C Unavailable [phone] Juanita Luong PA-C Unavailable Awa Sanchez PA-C Unavailable Source Comments In the event this information is protected by the Federal Confidentiality of Alcohol and Drug AbusePatient Records regulations: The Federal rules restrict any use of the information to criminally investigate or prosecute any alcohol or drug abuse patient.[facility] Encounter Details Date Type Department Care Team (Late st Contact Info) Description 11/23/2018 Get Medical Advice Family Medicine [place] [address] [place] [address] Basim White MD [address] [place], [place] [phone] RE: Visit Follow Up Question Social History [...] 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 Not [...] Contact Info) Description 09/24/2024 6:00 PM EDT [address] [address] Basmi White MD [address] [place] [address] 3 month follow up 11/28/2024 9:40 AM EDT [facility] Endocrinology [place] [address] [place] [address] [place] [address] [address] Type one diabetes pump and cgm follow up 12/20/2024 4:00 PM EDT [address] [address] Christiana Sims PA-C [address] [place] [address] 6 Month follow up and yearly physical 03/04/2025 5:20 PM EST Office Visit [address] [address] Basim White MD [address] [place] [address] 12 month follow up documented as of this encounter Goals Goal Patient Goal Type Associated Problems Recent Progress Patient-Stated? Author Care Coordination - Diabetes Care Coordination Counseling and coordination of care Chioma Velarde RN Note: Knows type of diabetes. [...] Goal Reviewed on date: December 11, 2013 CHIOMA PANDEY RN documented as of this encounter Visit Diagnoses Not on filedocumented in this encounter Additional Health Concerns Infection Onset Date Last Indicated Resolved Time COVID-19 Rule-Out 03/22/2020 03/22/2020 03/23/2020 7:16 PM EST COVID-19 Confirmed 02/26/2021 02/26/2021 8:51 PM EST documented as of this encounter Care Teams Desulfurizer Hand Relationship Specialty Start Date End Date Basim White MD [address] [place] [address] PCP - General Family Medicine 08/09/17 Nate Joyce DO Protozoology Teacher 02/09/13 Paulie Sandra MD [address] [phone] Primary Staff Physician Cardiology 07/04/1807/04 Paulie Sandra MD [address] [address] Primary Staff Physician Cardiology 07/04/18 Teagan Henriquez, RN [address] [place] [phone] Primary Care Manager [place] Internal Medicine 06/22/23 07/21/23 Pascale Kc, MANAGER CORPORATE STRATEGY.VACUUM PAN OPERATOR [address] [place] [address] Civil Engineering Director Family Medicine 03/26/24 07/04/24 Leeanne Balderas, MANAGER CORPORATE STRATEGY.VACUUM PAN OPERATOR [address] [place] [address] Civil Engineering Director Family Medicine 03/26/24 07/04/24 Juanita Luong PA-C [address] [place] [address] Civil Engineering Director Family Medicine 03/26/24 07/04/24 Rubi Rodriguez, MANAGER CORPORATE STRATEGY.VACUUM PAN OPERATOR [address] [place] [address] Civil Engineering Director Family Medicine 03/26/24 07/04/24 Christiana Sims PA-C [address] [place] [address] Civil Engineering Director Family Medicine 03/26/24 Tami Vazquez PA-C [address] [place] [address] Civil Engineering Director Family Medicine 06/07/24 07/04/24 Juanita Luong PA-C [address] [place] [address] Civil Engineering Director Family Medicine 07/11/24 07/25/24 Awa Sanchez PA-C [facility]2 [place], [place] [address] Civil Engineering Director Internal Medicine 09/03/24 documented as of this encounter
--- OUTSIDE RECORDS SUMMARY | 2024-09-09 00:44 | XMS_ITS | Encounter Summary ---
Author Organization [facility] Address [address] [place], [place] [address] Care Team Providers Care Gang Boss Name Role Phone IsiahNate greenfield Unavailable [phone] Anastasia Ruiz DO Primary Care Provider Basim White MD Primary Care Provider [phone] Paulie Sandra MD Unavailable Paulie Sandra MD Unavailable Teagan Henriquez RN Unavailable Pascale Kc CHIEF QUALITY OFFICER.PROCUREMENT ENGINEER Unavailable Leeanne Balderas CHIEF QUALITY OFFICER.PROCUREMENT ENGINEER Unavailable [phone] Juanita Luong PA-C Unavailable Rubi Rodriguez CHIEF QUALITY OFFICER.PROCUREMENT ENGINEER Unavailable Christiana Sims PA-C Unavailable Tami Vazquez PA-C Unavailable [phone] Juanita Luong PA-C Unavailable Awa Sanchez PA-C Unavailable Source Comments In the event this information is protected by the Federal Confidentiality of Alcohol and Drug AbusePatient Records regulations: The Federal rules restrict any use of the information to criminally investigate or prosecute any alcohol or drug abuse patient.[facility] Encounter Details Date Type Department Care Team (Late st Contact Info) Description 03/23/2017 Patient Msg Family Medicine [address] [place] [address] Provider, [facility] Lab Orders Social History Tobacco Use Types Packs/Day Years [...] Industry Job Start Date Job End Date [employer] Not on file Not on file Not [...] Contact Info) Description 09/24/2024 6:00 PM EDT [address] [address] Basim White MD [address] [place] [address] 3 month follow up 11/28/2024 9:40 AM EDT [facility] Endocrinology [place] [address] [place] [address] [place] [address] [address] Type one diabetes pump and cgm follow up 12/20/2024 4:00 PM EDT [address] [address] Christiana Sims PA-C [address] [place] [address] 6 Month follow up and yearly physical 03/04/2025 5:20 PM EST Office Visit [address] [address] Basim White MD [address] [place] [address] 12 month follow up documented as of [...] documented as of this encounter Care Teams Gang Boss Relationship Specialty Start [place] [address] [place] [address] PCP - General Family Medicine 06/10/16 08/08/17 Basim White MD [address] [place] [address] PCP - General Family Medicine 08/09/17 Nate Joyce DO Burglar Alarm Mechanic 02/09/13 Paulie Sandra MD [address] [facility] [address] [place] [phone] Primary Staff Physician Cardiology 07/04/1807/04 Paulie Sandra MD [address] [facility] [address] [place] [address] Primary Staff Physician Cardiology 07/04/18 Teagan Henriquez, RN 6000 [place] [address] Primary Care Flag Maker Internal Medicine 06/22/23 07/21/23 Pascale Kc, CHIEF QUALITY OFFICER.PROCUREMENT ENGINEER [id number] [place] [address] [facility] 03/26/24 07/04/24 Leeanne Balderas, CHIEF QUALITY OFFICER.PROCUREMENT ENGINEER [address] [place] [address] [facility] 03/26/24 07/04/24 Juanita Luong PA-C [id number] [place] [address] [facility] 03/26/24 07/04/24 Rubi Rodriguez, CHIEF QUALITY OFFICER.PROCUREMENT ENGINEER [address] [place] [address] [facility] 03/26/24 07/04/24 Christiana Sims PA-C [address] [place] [address] [facility] 03/26/24 Tami Vazquez PA-C [address] [place] [address] Label Fuser Tender Family Medicine 06/07/24 07/04/24 Juanita Luong PA-C [address] [place] [address] Label Fuser Tender Family Medicine 07/11/24 07/25/24 Awa Sanchez PA-C [address] [place] [address] Label Fuser Tender Internal Medicine 09/03/24 documented as of this encounter
--- OUTSIDE RECORDS SUMMARY | 2024-09-09 00:44 | XMS_ITS | Encounter Summary ---
Author Organization [facility] Address [address] [place], [place] [address] Care Team Providers Care Fireproof Door Assembler Name Role Phone Nate Joyce Unavailable [phone] Basim White MD Primary Care Provider Paulie Sandra MD Unavailable Paulie Sandra MD Unavailable Teagan Henriquez RN Unavailable Pascale Kc BENCH REPAIR TECHNICIAN.BELLOWS ASSEMBLER Unavailable Leeanne Balderas BENCH REPAIR TECHNICIAN.BELLOWS ASSEMBLER Unavailable [phone] Juanita Luong PA-C Unavailable Rubi Rodriguez BENCH REPAIR TECHNICIAN.BELLOWS ASSEMBLER Unavailable Christiana Sims PA-C Unavailable Tami Vazquez PA-C Unavailable [phone] Juanita Luong PA-C Unavailable Awa Sanchez PA-C Unavailable Source Comments In the event this information is protected by the Federal Confidentiality of Alcohol and Drug AbusePatient Records regulations: The Federal rules restrict any use of the information to criminally investigate or prosecute any alcohol or drug abuse patient.[facility] Encounter Details Date Type Department Care Team (Late st Contact Info) Description 02/25/2019 Patient Msg BMI [facility] [address] [facility] [place] [address] [place] [address] [address] [place] [address] RE: Appointment Cancellation Request Social History Tobacco Use Types Packs/Day Years [...] 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 Not on file Not [...] Info) Description 09/24/2024 6:00 PM EDT [address] [address] Basim White MD [address] [place] [address] 3 month follow up 11/28/2024 9:40 AM EDT [facility] Endocrinology [place] [address] [place] [address] [place] [address] [address] Type one diabetes pump and cgm follow up 12/20/2024 4:00 PM EDT [address] [address] Christiana Sims PA-C [address] [place] [address] 6 Month follow up and yearly physical 03/04/2025 5:20 PM EST Office Visit [address] [address] Basim White MD [address] [place] [address] 12 month follow up documented as of [...] documented as of this encounter Care Teams Fireproof Door Assembler Relationship Specialty Start Date End Date Basim White MD [address] [place] [address] PCP - General Family Medicine 08/09/17 Nate Joyce DO Ribbon Winder 02/09/13 Paulie Sandra MD [address] [phone] Primary Staff Physician Cardiology 07/04/1807/04 Paulie Sandra MD [address] [address] Primary Staff Physician Cardiology 07/04/18 Teagan Henriquez, RN 6000 [place] [address] Primary Care Arabic Teacher Internal Medicine 06/22/23 07/21/23 Pascale Kc, BENCH REPAIR TECHNICIAN.BELLOWS ASSEMBLER [address] [place] [address] Tool Repair Technician Family Medicine 03/26/24 07/04/24 Leeanne Balderas, BENCH REPAIR TECHNICIAN.BELLOWS ASSEMBLER [address] [place] [address] Tool Repair Technician Family Medicine 03/26/24 07/04/24 Juanita Luong PA-C [address] [place] [address] Tool Repair Technician Family Medicine 03/26/24 07/04/24 Rubi Rodriguez, BENCH REPAIR TECHNICIAN.BELLOWS ASSEMBLER [address] [place] [address] Tool Repair Technician Family Medicine 03/26/24 07/04/24 Christiana Sims PA-C [address] [place] [address] Tool Repair Technician Family Medicine 03/26/24 Tami Vazquez PA-C [address] [place] [address] Tool Repair Technician Family Medicine 06/07/24 07/04/24 Juanita Luong PA-C [address] [place] [address] Tool Repair Technician Family Medicine 07/11/24 07/25/24 Awa Sanchez PA-C [facility]2 [place], [place] [address] Tool Repair Technician Internal Medicine 09/03/24 documented as of this encounter
--- OUTSIDE RECORDS SUMMARY | 2024-09-09 00:44 | XMS_ITS | Encounter Summary ---
Author Organization [facility] Address [address] [place], [place] [address] Care Team Providers Care Specialist Icu Name Role Phone Nate Joyce Unavailable [phone] Basim White MD Primary Care Provider Paulie Sandra MD Unavailable [phone] Paulie Sandra MD Unavailable [phone] Teagan Henriquez RN Unavailable Pascale Kc GRAPHIC EDITOR.INSURANCE WRITER Unavailable Leeanne Balderas GRAPHIC EDITOR.INSURANCE WRITER Unavailable [phone] Juanita Luong PA-C Unavailable Rubi Rodriguez GRAPHIC EDITOR.INSURANCE WRITER Unavailable Christiana Sims PA-C Unavailable Tami Vazquez PA-C Unavailable [phone] Juanita Luong PA-C Unavailable Awa Sanchez PA-C Unavailable Source Comments In the event this information is protected by the Federal Confidentiality of Alcohol and Drug AbusePatient Records regulations: The Federal rules restrict any use of the information to criminally investigate or prosecute any alcohol or drug abuse patient.[facility] Encounter Details Date Type Department Care Team (Late st Contact Info) Description 02/27/2019 Get Medical Advice Family Medicine [place] [address] [place], [place] [phone] Basim White MD [address] [place], [place] [phone] RE: Visit Follow Up Question Social History [...] 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 Approved earlier today Please see other encounter. Thanks. Dr. White * Telephone Encounter - Anastasia Oliveira (Supervisor Power Reactor) - 02/27/2019 3:08 PM EST Patient would like prescription sent to [facility]. Order Pended. documented in this encounter Plan of Treatment Upcoming Encounters Date Type Department Care Team (Latest Contact Info) Description 09/24/2024 6:00 PM EDT [facility] Family Medicine [place] [address] [place] [address] Basim White MD [address] [place] [address] 3 month follow up 11/28/2024 9:40 AM EDT [facility] Endocrinology [place] [address] [place] [address] [place] [address] [address] Type one diabetes pump and cgm follow up 12/20/2024 4:00 PM EDT [facility] [address] [place] [address] Christiana Sims PA-C [address] [place] [place] [address] 6 Month follow up and yearly physical 03/04/2025 5:20 PM EST Office Visit [facility] [address] [place] [address] Basim White MD [address] [place] [address] 12 month follow up documented as of [...] documented as of this encounter Care Teams Specialist Icu Relationship Specialty Start Date End Date Basim White MD [address] [place] [address] PCP - General Family Medicine 08/09/17 Nate Joyce DO Educational Administrator 02/09/13 Paulie Sandra MD [address] [facility] [address] [place] [phone] Primary Staff Physician Cardiology 07/04/1807/04 Paulie Sandra MD [address] [facility] [address] [place] [phone] Primary Staff Physician Cardiology 07/04/18 Teagan Henriquez, RN [address] [place] [phone] Primary Care Business Segment Manager Internal Medicine 06/22/23 07/21/23 Pascale Kc, GRAPHIC EDITOR.INSURANCE WRITER [address] [place] [address] Primer Inserting Machine Adjuster Family Medicine 03/26/24 07/04/24 Leeanne Balderas, GRAPHIC EDITOR.INSURANCE WRITER [address] [place] [address] Primer Inserting Machine Adjuster Family Medicine 03/26/24 07/04/24 Juanita Luong PA-C [address] [place] [address] Primer Inserting Machine Adjuster Family Medicine 03/26/24 07/04/24 Rubi Rodriguez APRN.INSURANCE WRITER [address] [place] [address] Primer Inserting Machine Adjuster Family Medicine 03/26/24 07/04/24 Christiana Sims PA-C [address] [place] [address] Primer Inserting Machine Adjuster Family Medicine 03/26/24 Tami Vazquez PA-C [address] [place] [address] Primer Inserting Machine Adjuster Family Medicine 06/07/24 07/04/24 Juanita Luong PA-C [address] [place] [address] Primer Inserting Machine Adjuster Family Medicine 07/11/24 07/25/24 Awa Sanchez PA-C [address] [place] [address] Primer Inserting Machine Adjuster Internal Medicine 09/03/24 documented as of this encounter
--- OUTSIDE RECORDS SUMMARY | 2024-09-09 00:44 | XMS_ITS | Encounter Summary ---
Author Organization [facility] Address [address] [place], [place] [address] Care Team Providers Care Account Resolution Analyst Name Role Phone Nate Joyce Unavailable [phone] Basim White MD Primary Care Provider Paulie Sandra MD Unavailable Paulie Sandra MD Unavailable Teagan Henriquez RN Unavailable Pascale K[employer] ADMINISTRATION VICE PRESIDENT.SUGAR PRESSER Unavailable Leeanne Balderas ADMINISTRATION VICE PRESIDENT.SUGAR PRESSER Unavailable [phone] Juanita Luong PA-C Unavailable Rubi Rodriguez ADMINISTRATION VICE PRESIDENT.SUGAR PRESSER Unavailable Christiana Sims PA-C Unavailable Tami Vazquez PA-C Unavailable [phone] Juanita Luong PA-C Unavailable Awa Sanchez PA-C Unavailable Source Comments In the event this information is protected by the Federal Confidentiality of Alcohol and Drug AbusePatient Records regulations: The Federal rules restrict any use of the information to criminally investigate or prosecute any alcohol or drug abuse patient.[facility] Encounter Details Date Type Department Care Team (Kathryn saini Contact Bill) Description 02/25/2019 Patient Msg General Surgery [address] [id number] Belen Hodge, RD [address] [id number] Appointment Cancellation Request Social History Tobacco Use [...] Industry Job Start Date Job End Date [employer] Not on file Not on file Not [...] Assessment Author No 01/25/2017 3:55 PM EDT Osamny Ireland RN * Do you have serious [...] Contact Info) Description 09/24/2024 6:00 PM EDT [address] [address] Basim White MD [address] [place] [address] 3 month follow up 11/28/2024 9:40 AM EDT [facility] Endocrinology [place] [address] [place] [address] [place] [address] [address] Type one diabetes pump and cgm follow up 12/20/2024 4:00 PM EDT [address] [address] Christiana Sims PA-C [address] [place] [address] 6 Month follow up and yearly physical 03/04/2025 5:20 PM EST Office Visit [address] [address] Basim White MD [address] [place] [address] 12 month follow up documented as of [...] documented as of this encounter Care Teams Account Resolution Analyst Relationship Specialty Start Date End Date Basim White MD [address] [place] [address] PCP - General Family Medicine 08/09/17 Nate Joyce DO Domestic Freight Forwarder 02/09/13 Paulie Sandra MD [address] [address] Primary Staff Physician Cardiology 07/04/1807/04 Paulie Sandra MD [address] [facility] [address] [address] Primary Staff Physician Cardiology 07/04/18 Teagan Henriquez, RN 6000 [place] [address] Primary Care Multi Disciplined Language Analyst Internal Medicine 06/22/23 07/21/23 Pascale Kc, ADMINISTRATION VICE PRESIDENT.SUGAR PRESSER [id number] [place] [address] Steam Pipe Fitter Family Medicine 03/26/24 07/04/24 Leeanne Balderas, ADMINISTRATION VICE PRESIDENT.SUGAR PRESSER [address] [place] [address] Steam Pipe Fitter Family Medicine 03/26/24 07/04/24 Juanita Luong PA-C [address] [place] [address] Steam Pipe Fitter Family Medicine 03/26/24 07/04/24 Rubi Rodriguez, ADMINISTRATION VICE PRESIDENT.SUGAR PRESSER [address] [place] [address] Steam Pipe Fitter Family Medicine 03/26/24 07/04/24 Christiana Sims PA-C [address] [place] [address] Steam Pipe Fitter Family Medicine 03/26/24 Tami Vazquez PA-C [address] [place] [address] Steam Pipe Fitter Family Medicine 06/07/24 07/04/24 Juanita Luong PA-C [address] [place] [address] Steam Pipe Fitter Family Medicine 07/11/24 07/25/24 Awa Sanchez PA-C [address] [place] [address] Steam Pipe Fitter Internal Medicine 09/03/24 documented as of this encounter
--- OUTSIDE RECORDS SUMMARY | 2024-09-09 00:44 | XMS_ITS | Encounter Summary ---
Author Organization [facility] Address [address] [place], [place] [address] Care Team Providers Care Programming Internship Name Role Phone IsiahNate greenfield Cecelia OSBORNE Unavailable [phone] Basim White MD Primary Care Provider Paulie Sandra MD Unavailable Teagan Henriquez RN Unavailable Pascale Kc CRUDE TESTER.POULTRY FARMWORKER Unavailable Leeanne Balderas CRUDE TESTER.POULTRY FARMWORKER Unavailable [phone] Juanita Luong PA-C Unavailable Rubi Rodriguez CRUDE TESTER.POULTRY FARMWORKER Unavailable Christiana Sims PA-C Unavailable Tami Vazquez PA-C Unavailable Juanita Luong PA-C Unavailable Awa Sanchez PA-C Unavailable Source Comments In the event this information is protected by the Federal Confidentiality of Alcohol and Drug AbusePatient Records regulations: The Federal rules restrict any use of the information to criminally investigate or prosecute any alcohol or drug abuse patient.[facility] Encounter Details Date Type Department Care Team (Late st Contact Info) Description 03/02/2021 Get Medical Advice Family Medicine [place] [address] [place], [place] [id number] Basim White MD [address] [place], [place] [phone] Power Wheelchair Social History Tobacco Use Types Packs/Day Years [...] often do you attend chur ch or mu-ism services? More than 4 times per year 09/29/2019 Do you belong to any clubs o r organizations such as yarsani groups, unions, fraternal or athletic groups, or school groups? No 09/29/2019 How often do you attend meet ings of the clubs or organizations you belong to? Never 09/29/2019 Are you , , di vorced, , never , or living with a partner? 09/29/2019 PHQ-2 Answer Date Recorded PHQ-2 score 5 03/03/2021 [facility] - Occupational Stress [...] or slept in a prison (including now)? No 03/03/2021 Area Deprivation Index Answer Date Sergio rded National Score (1-100), lower number is lower ri sk Not on file 03/22/2020 State Score (1-10), lower number is lower risk N ot on file 03/22/2020 Data from: https://www.neighborhoodatlas.medicine.[facility].edu/. Last address used for calculation [...] Industry Job Start Date Job End Date [employer] Not on file Not on file Not on file disability since 07/2015 (off work since 11/2013) Not on file Not on file Not on file COVID-19 Exposure Response Date Recorded In the last month, have you been in contact with someone who was confirmed or suspected to have Coronavirus / COVID-19? Yes 03/02/2021 3:29 PM EST documented as of this encounter Functional Status [...] encounter Miscellaneous Notes * Telephone Encounter - Yuridia Peoples) - 03/03/2021 10:57 AM EST Will print form for Doctor to review once I am back in the office. documented in this encounter Plan of Treatment Upcoming Encounters Date Type Department Care Team (Latest Contact Info) Description 09/24/2024 6:00 PM EDT [facility] [address] [place] [address] Basim White MD [address] [place] [address] 3 month follow up 11/28/2024 9:40 AM EDT [facility] Endocrinology [place] [address] [place] [address] [place] [address] [facility] [address] [place] [address] Type one diabetes pump and cgm follow up 12/20/2024 4:00 PM EDT [facility] [address] [place] [address] Christiana Sims PA-C 450 [place] [address] 6 Month follow up and yearly physical 03/04/2025 5:20 PM EST Office Visit Family Medicine [place] [address] [place], [place] [phone] Basim White MD [address] [place], [place] [address] 12 month follow up documented as of [...] Reviewed on date: December 11, 2013 MORENA JARA RN documented as of this encounter Visit Diagnoses Not on filedocumented in this encounter Additional Health Concerns Infection Onset Date Last Indicated Resolved Time COVID-19 Confirmed 02/26/2021 02/26/2021 8:51 PM EST documented as of this encounter Care Teams Programming Internship Relationship Specialty Start Date End Date Basim White MD [address] [place] [address] PCP - General Family Medicine 08/09/17 Nate Joyce DO Digital Marketing Apprentice 02/09/13 Paulie Sandra MD [address] [address] Primary Staff Physician Cardiology 07/04/18 Teagan Henriquez, RN 6000 [place] [address] Primary Care Layout Inspector Internal Medicine 06/22/23 07/21/23 Pascale Kc, CRUDE TESTER.POULTRY FARMWORKER [address] [place] [address] Railroad Signal And Switch Operator Family Medicine 03/26/24 07/04/24 Leeanne Balderas, CRUDE TESTER.POULTRY FARMWORKER [address] [place] [address] Railroad Signal And Switch Operator Family Medicine 03/26/24 07/04/24 Juanita Luong PA-C [address] [place] [address] Railroad Signal And Switch Operator Family Medicine 03/26/24 07/04/24 Rubi Rodriguez, CRUDE TESTER.POULTRY FARMWORKER [address] [place] [address] Railroad Signal And Switch Operator Family Medicine 03/26/24 07/04/24 Christiana Sims PA-C [facility] [address] Railroad Signal And Switch Operator Family Medicine 03/26/24 Tami Vazquez PA-C [address] [place] [address] Railroad Signal And Switch Operator Family Medicine 06/07/24 07/04/24 Juanita Luong PA-C [address] [place] [address] Railroad Signal And Switch Operator Family Medicine 07/11/24 07/25/24 Awa Sanchez PA-C [address] [place] [address] [facility] Internal Medicine 09/03/24 documented as of this encounter
--- OUTSIDE RECORDS SUMMARY | 2024-09-09 00:44 | XMS_ITS | Encounter Summary ---
Author Organization [facility] Address [address] [place], [place] [address] Care Team Providers Care Steam Turbine Operator Name Role Phone Nate Joyce DO Unavailable [phone] Mariam Cruz MD Primary Care Provider Morena Jara RN Unavailable [phone] Basim Cavazos Primary Care Provider Unavailabl e Pcp, No READING TUTOR Primary Care Provider Unavailabl e Anastasia Ruiz DO Primary Care Provider Basim White MD Primary Care Provider [phone] Paulie Sandra MD Unavailable Paulie Sandra MD Unavailable Teagan Henriquez RN Unavailable Pascale Kc READING TUTOR.ENGINEERING CONSULTANT Unavailable Leeanne Balderas READING TUTOR.ENGINEERING CONSULTANT Unavailable Juanita Luong PA-C Unavailable Rubi Rodriguez READING TUTOR.ENGINEERING CONSULTANT Unavailable Christinaa Sims PA-C Unavailable Tami Vazquez PA-C Unavailable [phone] Juanita Luong PA-C Unavailable Awa Sanchez PA-C Unavailable Source Comments In the event this information is protected by the Federal Confidentiality of Alcohol and Drug AbusePatient Records regulations: The Federal rules restrict any use of the information to criminally investigate or prosecute any alcohol or drug abuse patient.[facility] Encounter Details Date Type Department Care Team (Late st Contact Info) Description 12/11/2013 Patient Msg Medical Records [address] [place] [address] Provider, [facility] Internet Application for diabetes Social History Tobacco Use Types Packs/Day Years [...] 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 Answer Date of Assessment Author No 10/25/2013 3:00 PM EDT Shilpa Westbrook MA * Are you blind or do you have serious difficulty seeing, even when wearing glasses? Answer Date of Assessment Author No 10/25/2013 3:00 PM RAMONT Shilpa Westbrook MA * Do you have serious difficulty walking or climbing stairs? Answer Date of Assessment Author No 10/25/2013 3:00 PM RAMONT Shilpa Westbrook MA * Do you have difficulty dressing or bathing? Answer Date of Assessment Author No 10/25/2013 3:00 PM EDT Shilpa Westbrook MA * Because of a physical, mental, or emotional condition, do you have difficulty doing errands alone such as visiting a doctor's office or shopping? Answer Date of Assessment Author No 10/25/2013 3:00 PM EDT Shilpa Westbrook MA documented as of this encounter Mental Status * Because of a physical, mental, or emotional condition, do you have serious difficulty concentrating, remembering, or making decisions? Answer Entry Date Author No 10/25/2013 3:00 PM EDT Shilpa Westbrook MA documented in this encounter Plan of Treatment Upcoming Encounters Date Type Department Care Team (Latest Contact Info) Description 09/24/2024 6:00 PM EDT [address] [address] Basim White MD [address] [place] [address] 3 month follow up 11/28/2024 9:40 AM EDT [facility] Endocrinology [place] [address] [place] [address] [place] [address] [address] Type one diabetes pump and cgm follow up 12/20/2024 4:00 PM EDT [address] [address] Christiana Sims PA-C [address] [place] [address] 6 Month follow up and yearly physical 03/04/2025 5:20 PM EST Office Visit [address] [address] Basim White MD [address] [place] [address] 12 month follow up documented as of [...] documented as of this encounter Care Teams Steam Turbine Operator Relationship Specialty Start Date End Date Mariam Cruz MD [address] [place] [address] PCP - General Family Medicine 02/09/13 03/08/16 Basim Cavazos PCP - General 03/09/16 04/14/16 Pcp, No, READING TUTOR PCP - General 04/15/16 06/09/16 [place] [address] [place], [place] [address] PCP - General Family Medicine 06/10/16 08/08/17 Basim White MD 450 [place] [address] PCP - General Family Medicine 08/09/17 Nate Joyce DO Filter Worker 02/09/13 Morena aJra, RN [address] [place] [address] Specialty De Icer Kit Assembler Endocrinology 06/08/13 04/04/16 Paulie Sandra MD [address] [facility] [address] [place] [address] Primary Staff Physician Cardiology 07/04/1807/04 Paulie Sandra MD [address] [facility] [address] [place] [address] Primary Staff Physician Cardiology 07/04/18 Teagan Henriquez, JIE 6000 [place] [address] Primary Care Chalker Soles Internal Medicine 06/22/23 07/21/23 Pascale Kc, READING TUTOR.ENGINEERING CONSULTANT [address] [place] [address] Design Teacher Family Medicine 03/26/24 07/04/24 Leeanne Balderas, READING TUTOR.ENGINEERING CONSULTANT [address] [place] [address] Design Teacher Family Medicine 03/26/24 07/04/24 Juanita Luong PA-C [address] [place] [address] Design Teacher Family Medicine 03/26/24 07/04/24 Rubi Rodriguez APRN.ENGINEERING CONSULTANT [address] [place] [address] Design Teacher Family Medicine 03/26/24 07/04/24 Christiana Sims PA-C [address] [place] [address] Design Teacher Family Medicine 03/26/24 Tami Vazquez PA-C [address] [place] [address] Design Teacher Family Medicine 06/07/24 07/04/24 Juanita Luong PA-C [address] [place] [address] Design Teacher Family Medicine 07/11/24 07/25/24 Awa Sanchez PA-C [address] [place] [address] Design Teacher Internal Medicine 09/03/24 documented as of this encounter
--- OUTSIDE RECORDS SUMMARY | 2024-09-09 00:44 | XMS_ITS | Encounter Summary ---
Author Organization [facility] Address [address] [place], [place] [address] Care Team Providers Care Package Lift Operator Name Role Phone Nate Joyce Unavailable [phone] Basim White MD Primary Care Provider [phone] Paulie Sandra MD Unavailable Paulie Sandra MD Unavailable [phone] Teagan Henriquez RN Unavailable Pascale Kc SENIOR MATERIALS SCIENTIST.AVIATION SUPPORT EQUIPMENT REPAIRER Unavailable Leeanne Balderas SENIOR MATERIALS SCIENTIST.AVIATION SUPPORT EQUIPMENT REPAIRER Unavailable [phone] Juanita Luong PA-C Unavailable Rubi Rodriguez SENIOR MATERIALS SCIENTIST.AVIATION SUPPORT EQUIPMENT REPAIRER Unavailable Christiana Sims PA-C Unavailable Tami Vazquez PA-C Unavailable [phone] Juanita Luong PA-C Unavailable Awa Sanchez PA-C Unavailable Source Comments In the event this information is protected by the Federal Confidentiality of Alcohol and Drug AbusePatient Records regulations: The Federal rules restrict any use of the information to criminally investigate or prosecute any alcohol or drug abuse patient.[facility] Encounter Details Date Type Department Care Team (Late st Contact Info) Description 02/25/2019 Patient Msg BMI [facility] [place] [address] [facility] [address] [address] [place], [place] [phone] Madelyn Patel MD [address] [place] [address] RE: Appointment Cancellation Request Social History Tobacco [...] Industry Job Start Date Job End Date [employer] Not on file Not on file Not [...] Contact Info) Description 09/24/2024 6:00 PM EDT [address] [address] Basim White MD [address] [place] [address] 3 month follow up 11/28/2024 9:40 AM EDT [facility] Endocrinology [place] [address] [place] [address] [place] [address] [address] Type one diabetes pump and cgm follow up 12/20/2024 4:00 PM EDT [address] [address] Christiana Sims PA-C [address] [place] [address] 6 Month follow up and yearly physical 03/04/2025 5:20 PM EST Office Visit [address] [address] Basim White MD [address] [place] [address] 12 month follow up documented as of [...] documented as of this encounter Care Teams Package Lift Operator Relationship Specialty Start Date End Date Basim White MD 450 [place] [address] PCP - General Family Medicine 08/09/17 Nate Joyce DO Chief Operations Officer 02/09/13 Paulie Sandra MD [address] [phone] Primary Staff Physician Cardiology 07/04/1807/04 Paulie Sandra MD [address] [address] Primary Staff Physician Cardiology 07/04/18 Teagan Henriquez, RN 6000 [place] [address] Primary Care Director Of Women'S Services Internal Medicine 06/22/23 07/21/23 Pascale Kc, SENIOR MATERIALS SCIENTIST.AVIATION SUPPORT EQUIPMENT REPAIRER [address] [place] [address] International Marketing Manager Family Medicine 03/26/24 07/04/24 Leeanne Balderas, SENIOR MATERIALS SCIENTIST.AVIATION SUPPORT EQUIPMENT REPAIRER [address] [place] [address] International Marketing Manager Family Medicine 03/26/24 07/04/24 Juanita Luong PA-C [address] [place] [address] International Marketing Manager Family Medicine 03/26/24 07/04/24 Rubi Rodriguez, SENIOR MATERIALS SCIENTIST.AVIATION SUPPORT EQUIPMENT REPAIRER [address] [place] [address] International Marketing Manager Family Medicine 03/26/24 07/04/24 Christiana Sims PA-C [address] [place] [address] International Marketing Manager Family Medicine 03/26/24 Tami Vazquez PA-C [address] [place] [address] International Marketing Manager Family Medicine 06/07/24 07/04/24 Juanita Luong PA-C [address] [place] [address] International Marketing Manager Family Medicine 07/11/24 07/25/24 Awa Sanchez PA-C [employer] [place], [place] [address] International Marketing Manager Internal Medicine 09/03/24 documented as of this encounter
--- OUTSIDE RECORDS SUMMARY | 2024-09-09 00:44 | XMS_ITS | Encounter Summary ---
Author Organization [facility] Address [address] [place], [place] [address] Care Team Providers Care Billet Grinder Name Role Phone Nate Joyce Unavailable [phone] Basim White MD Primary Care Provider Paulie Sandra MD Unavailable Paulie Sandra MD Unavailable [phone] Teagan Henriquez RN Unavailable Pascale Kc ADMINISTRATIVE SERVICES COORDINATOR.ASSISTED LIVING DIRECTOR Unavailable Leeanne Balderas ADMINISTRATIVE SERVICES COORDINATOR.ASSISTED LIVING DIRECTOR Unavailable [phone] Juanita Luong PA-C Unavailable Rubi Rodriguez ADMINISTRATIVE SERVICES COORDINATOR.ASSISTED LIVING DIRECTOR Unavailable Christiana Sims PA-C Unavailable Tami Vazquez PA-C Unavailable [phone] Juanita Luong PA-C Unavailable Awa Sanchez PA-C Unavailable Source Comments In the event this information is protected by the Federal Confidentiality of Alcohol and Drug AbusePatient Records regulations: The Federal rules restrict any use of the information to criminally investigate or prosecute any alcohol or drug abuse patient.[facility] Encounter Details Date Type Department Care Team (Late st Contact Info) Description 04/23/2019 Get Medical Advice Family Medicine [place] [address] [place], [place] [phone] Basim White MD [address] [place], [place] [phone] RE: Non-Urgent Medical Question Social History Tobacco [...] 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 Not [...] Contact Info) Description 09/24/2024 6:00 PM EDT [address] [address] Basim White MD [address] [place] [address] 3 month follow up 11/28/2024 9:40 AM EDT [facility] Endocrinology [place] [address] [place] [address] [place] [address] [address] Type one diabetes pump and cgm follow up 12/20/2024 4:00 PM EDT [address] [address] Christiana Sims PA-C [address] [place] [address] 6 Month follow up and yearly physical 03/04/2025 5:20 PM EST Office Visit [address] [address] Basim White MD [address] [place] [address] 12 month follow up documented as of [...] of this encounter 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 Additional Health Concerns Infection Onset Date Last Indicated Resolved Time COVID-19 Rule-Out 03/22/2020 03/22/2020 03/23/2020 7:16 PM EST COVID-19 Confirmed 02/26/2021 02/26/2021 8:51 PM EST documented as of this encounter Care Teams Billet Grinder Relationship Specialty Start Date End Date Basim White MD 450 [place] [address] PCP - General Family Medicine 08/09/17 Nate Joyce DO Sink Maker 02/09/13 Paulie Sandra MD [address] [address] Primary Staff Physician Cardiology 07/04/1807/04 Paulie Sandra MD [address] [phone] Primary Staff Physician Cardiology 07/04/18 Teagan Henriquez, RN 6000 [place] [address] Primary Care Library Circulation Assistant Internal Medicine 06/22/23 07/21/23 Pascale Kc, ADMINISTRATIVE SERVICES COORDINATOR.ASSISTED LIVING DIRECTOR [address] [place] [address] Liquefied Natural Gas Operator Family Medicine 03/26/24 07/04/24 Leeanne Balderas, ADMINISTRATIVE SERVICES COORDINATOR.ASSISTED LIVING DIRECTOR [address] [place] [address] Liquefied Natural Gas Operator Family Medicine 03/26/24 07/04/24 Juanita Luong PA-C [address] [place] [address] Liquefied Natural Gas Operator Family Medicine 03/26/24 07/04/24 Rubi Rodriguez, ADMINISTRATIVE SERVICES COORDINATOR.ASSISTED LIVING DIRECTOR [address] [place] [address] Liquefied Natural Gas Operator Family Medicine 03/26/24 07/04/24 Christiana Sims PA-C [address] [place] [address] Liquefied Natural Gas Operator Family Medicine 03/26/24 Tami Vazquez PA-C [address] [place] [address] Liquefied Natural Gas Operator Family Medicine 06/07/24 07/04/24 Juanita Luong PA-C [address] [place] [address] [facility] Family Medicine 07/11/24 07/25/24 Awa Sanchez PA-C [address] [place] [address] [facility] Internal Medicine 09/03/24 documented as of this encounter
--- OUTSIDE RECORDS SUMMARY | 2024-09-09 00:44 | XMS_ITS | Encounter Summary ---
Author Organization [facility] Address [address] [place], [place] [id number] Care Team Providers Care Production Supervisor Name Role Phone Nate Joyce Unavailable [phone] Basim White MD Primary Care Provider Paulie Sandra MD Unavailable [phone] Paulie Sandra MD Unavailable [phone] Teagan Henriquez RN Unavailable Pasc[employer] K[employer] SEEDLING SORTER.BUTTON AND BUCKLE MAKER Unavailable Leeanne Balderas SEEDLING SORTER.BUTTON AND BUCKLE MAKER Unavailable [phone] Juanita Luong PA-C Unavailable Rubi Rodriguez SEEDLING SORTER.BUTTON AND BUCKLE MAKER Unavailable Christiana Sims PA-C Unavailable Tami Vazquez PA-C Unavailable [phone] Juanita Luong PA-C Unavailable Awa Sanchez PA-C Unavailable Source Comments In the event this information is protected by the Federal Confidentiality of Alcohol and Drug AbusePatient Records regulations: The Federal rules restrict any use of the information to criminally investigate or prosecute any alcohol or drug abuse patient.[facility] Encounter Details Date Type Department Care Team (Late st Contact Info) Description 04/20/2019 Get Medical Advice Endocrinology [address] [place] [address] [place] [address] [place] [address] RE: Visit Follow Up Question Social History [...] 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 Not [...] Assessment Author No 01/25/2017 3:55 PM EDT Omsany Ireland RN * Do you have difficulty [...] Info) Description 09/24/2024 6:00 PM EDT [address] [address] Basim White MD [address] [place] [address] 3 month follow up 11/28/2024 9:40 AM EDT [facility] Endocrinology [place] [address] [place] [address] [place] [address] [address] Type one diabetes pump and cgm follow up 12/20/2024 4:00 PM EDT [address] [address] Christiana Sims PA-C [address] [place] [address] 6 Month follow up and yearly physical 03/04/2025 5:20 PM EST Office Visit [address] [address] Basim White MD [address] [place] [address] 12 month follow up documented as of [...] documented as of this encounter Care Teams Production Supervisor Relationship Specialty Start Date End Date Basim White MD 450 [place] [address] PCP - General Family Medicine 08/09/17 Nate Joyce DO Console Manager 02/09/13 Paulie Sandra MD [address] [address] Primary Staff Physician Cardiology 07/04/1807/04 Paulie Sandra MD [address] [address] Primary Staff Physician Cardiology 07/04/18 Teagan Henriquez, RN 6000 [place] [address] Primary Care Label Operator Internal Medicine 06/22/23 07/21/23 Pascale Kc, SEEDLING SORTER.BUTTON AND BUCKLE MAKER [address] [place] [address] Staff Engineer Family Medicine 03/26/24 07/04/24 Leeanne Balderas, SEEDLING SORTER.BUTTON AND BUCKLE MAKER [address] [place] [address] Staff Engineer Family Medicine 03/26/24 07/04/24 Juanita Luong PA-C [address] [place] [address] [facility] Family Medicine 03/26/24 07/04/24 Rubi Rodriguez, SEEDLING SORTER.BUTTON AND BUCKLE MAKER [address] [place] [address] Staff Engineer Family Medicine 03/26/24 07/04/24 Christiana Sims PA-C [address] [place] [address] Staff Engineer Family Medicine 03/26/24 Tami Vazquez PA-C [address] [place] [address] Staff Engineer Family Medicine 06/07/24 07/04/24 Juanita Luong PA-C [address] [place] [address] Staff Engineer Family Medicine 07/11/24 07/25/24 Awa Sanchez PA-C [facility]2 [place], [place] [address] Staff Engineer Internal Medicine 09/03/24 documented as of this encounter
--- OUTSIDE RECORDS SUMMARY | 2024-09-09 00:44 | XMS_ITS | Encounter Summary ---
Author Organization [facility] Address [address] [place], [place] [id number] Care Team Providers Care Bill Cutter Name Role Phone Nate Joyce Unavailable [phone] Basim White MD Primary Care Provider Paulie Sandra MD Unavailable Paulie Sandra MD Unavailable Teagan Henriquez RN Unavailable [employer] BACK CLOSER.GOVERNMENT AFFAIRS MANAGER Unavailable Leeanne Balderas BACK CLOSER.GOVERNMENT AFFAIRS MANAGER Unavailable [phone] Juanita Luong PA-C Unavailable Rubi Rodriguez BACK CLOSER.GOVERNMENT AFFAIRS MANAGER Unavailable Christiana Sims PA-C Unavailable Tami Vazquez PA-C Unavailable [phone] Juanita Luong PA-C Unavailable Awa Sanchez PA-C Unavailable Source Comments In the event this information is protected by the Federal Confidentiality of Alcohol and Drug AbusePatient Records regulations: The Federal rules restrict any use of the information to criminally investigate or prosecute any alcohol or drug abuse patient.[facility] Encounter Details Date Type Department Care Team (Late st Contact Info) Description 01/11/2019 Patient Msg Endocrinology [address] [place] [address] [place] [address] [place] [address] 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 Not [...] Contact Info) Description 09/24/2024 6:00 PM EDT [address] [address] Basim White MD [address] [place] [address] 3 month follow up 11/28/2024 9:40 AM EDT [facility] Endocrinology [place] [address] [place] [phone] [place] [address] [address] Type one diabetes pump and cgm follow up 12/20/2024 4:00 PM EDT [address] [address] Christiana Sims PA-C [address] [place] [address] 6 Month follow up and yearly physical 03/04/2025 5:20 PM EST Office Visit [address] [address] Basim White MD [address] [place] [address] 12 month follow up documented as of [...] documented as of this encounter Care Teams Bill Cutter Relationship Specialty Start Date End Date Basim White MD 450 [place] [address] PCP - General Family Medicine 08/09/17 Nate Joyce DO Assistant Secretary 02/09/13 Paulie Sandra MD [address] [address] Primary Staff Physician Cardiology 07/04/1807/04 Paulie Sandra MD [address] [address] Primary Staff Physician Cardiology 07/04/18 Teagan Henriquez, RN 6000 [place] [address] Primary Care Travel Coordinator Internal Medicine 06/22/23 07/21/23 Pascale Kc, BACK CLOSER.GOVERNMENT AFFAIRS MANAGER [address] [place] [address] Aircraft Tool Maker Family Medicine 03/26/24 07/04/24 Leeanne Balderas, BACK CLOSER.GOVERNMENT AFFAIRS MANAGER [address] [place] [address] Aircraft Tool Maker Family Medicine 03/26/24 07/04/24 Juanita Luong PA-C [address] [place] [address] Aircraft Tool Maker Family Medicine 03/26/24 07/04/24 Rubi Rodriguez, BACK CLOSER.GOVERNMENT AFFAIRS MANAGER [address] [place] [address] Aircraft Tool Maker Family Medicine 03/26/24 07/04/24 Christiana Sims PA-C [address] [place] [address] Aircraft Tool Maker Family Medicine 03/26/24 Tami Vazquez PA-C [address] [place] [address] Aircraft Tool Maker Family Medicine 06/07/24 07/04/24 Juanita Luong PA-C [address] [place] [address] Aircraft Tool Maker Family Medicine 07/11/24 07/25/24 Awa Sanchez PA-C [address] [place] [id number] Aircraft Tool Maker Internal Medicine 09/03/24 documented as of this encounter
--- OUTSIDE RECORDS SUMMARY | 2024-09-09 00:44 | XMS_ITS | Encounter Summary ---
Author Organization [facility] Address [address] [place], [place] [address] Care Team Providers Care Retail Banker Name Role Phone Nate Joyce Unavailable [phone] Basim White MD Primary Care Provider [phone] Paulie Sandra MD Unavailable Paulie Sandra MD Unavailable Teagan Henriquez RN Unavailable [employer] PLATFORM WORKER.ENGINEER ASSISTANT Unavailable Leeanne Balderas PLATFORM WORKER.ENGINEER ASSISTANT Unavailable [phone] Juanita Luong PA-C Unavailable Rubi Rodriguez PLATFORM WORKER.ENGINEER ASSISTANT Unavailable Christiana Sims PA-C Unavailable Tami Vazquez PA-C Unavailable [phone] Juanita Luong PA-C Unavailable Awa Sanchez PA-C Unavailable Source Comments In the event this information is protected by the Federal Confidentiality of Alcohol and Drug AbusePatient Records regulations: The Federal rules restrict any use of the information to criminally investigate or prosecute any alcohol or drug abuse patient.[facility] Encounter Details Date Type Department Care Team (Late st Contact Info) Description 02/27/2019 Patient Msg Family Medicine [address] [place], [place] [id number] Provider, Ccf Omeprazole Social History Tobacco Use Types Packs/Day Years [...] 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 [...] Contact Info) Description 09/24/2024 6:00 PM EDT [address] [address] Basim White MD [address] [place] [address] 3 month follow up 11/28/2024 9:40 AM EDT [facility] Endocrinology [place] [address] [place] [phone] [place] [address] [address] Type one diabetes pump and cgm follow up 12/20/2024 4:00 PM EDT [address] [address] Christiana Sims PA-C [address] [place] [address] 6 Month follow up and yearly physical 03/04/2025 5:20 PM EST Office Visit [address] [address] Basim White MD [address] [place] [address] 12 month follow up documented as of this encounter Goals Goal Patient Goal Type Associated Problems Recent Progress Patient-Stated? Author Care Coordination - Diabetes Care Coordination Counseling and coordination of care Chioma Velarde, RN Note: Knows type of diabetes. [...] documented as of this encounter Care Teams Retail Banker Relationship Specialty Start Date End Date Basim White MD [address] [place] [address] PCP - General Family Medicine 08/09/17 Nate Joyce DO Art Museum Docent 02/09/13 Paulie Sandra MD [address] [address] Primary Staff Physician Cardiology 07/04/1807/04 Paulie Sandra MD [address] [facility] 110 [place] [address] Primary Staff Physician Cardiology 07/04/18 Teagan Henriquez, RN [address] [place] [id number] Primary Care Newsstand Vendor Internal Medicine 06/22/23 07/21/23 Pascale Kc, PLATFORM WORKER.ENGINEER ASSISTANT [address] [place] [address] [facility] Family Medicine 03/26/24 07/04/24 Leeanne Balderas, PLATFORM WORKER.ENGINEER ASSISTANT [address] [place] [address] [facility] 03/26/24 07/04/24 Juanita Luong PA-C [address] [place] [address] [facility] Family [facility] 03/26/24 07/04/24 Rubi Rodriguez, PLATFORM WORKER.ENGINEER ASSISTANT [address] [place] [address] [facility] 03/26/24 07/04/24 Christiana Sims PA-C [address] [place] [address] [facility] 03/26/24 Tami Vazquez PA-C [address] [place] [address] [facility] 06/07/24 07/04/24 Juanita Luong PA-C [address] [place] [address] Metal Miner Family Medicine 07/11/24 07/25/24 Awa Sanchez PA-C [address] [place] [address] Metal Miner Internal Medicine 09/03/24 documented as of this encounter
--- OUTSIDE RECORDS SUMMARY | 2024-09-09 00:44 | XMS_ITS | Encounter Summary ---
Author Organization [facility] Address [address] [place], [place] [id number] Care Team Providers Care Motion Study Analyst Name Role Phone IsiahNate greenfield Unavailable [phone] Anastasia Ruiz DO Primary Care Provider Basim White MD Primary Care Provider [phone] Paulie Sandra MD Unavailable Paulie Sandra MD Unavailable Teagan Henriquez RN Unavailable [employer] MILITARY EQUIPMENT SPECIALIST.LEATHER TANNER Unavailable Leeanne Balderas MILITARY EQUIPMENT SPECIALIST.LEATHER TANNER Unavailable [phone] Juanita Luong PA-C Unavailable Rubi Rodriguez MILITARY EQUIPMENT SPECIALIST.LEATHER TANNER Unavailable Christiana Sims PA-C Unavailable Tami Vazquez PA-C Unavailable [phone] Juanita Luong PA-C Unavailable Awa Sanchez PA-C Unavailable Source Comments In the event this information is protected by the Federal Confidentiality of Alcohol and Drug AbusePatient Records regulations: The Federal rules restrict any use of the information to criminally investigate or prosecute any alcohol or drug abuse patient.[facility] Encounter Details Date Type Department Care Team (Late st Contact Info) Description 04/04/2017 Patient Msg Endocrinology [address] [place] [address] Provider, Ccf Upcoming Endocrinology Appointment Social History Tobacco Use Types Packs/Day [...] 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 [...] Contact Info) Description 09/24/2024 6:00 PM EDT [address] [address] Basim White MD [address] [place] [address] 3 month follow up 11/28/2024 9:40 AM EDT [facility] Endocrinology [place] [address] [place] [address] [place] [address] [address] Type one diabetes pump and cgm follow up 12/20/2024 4:[address] PM EDT [address] [address] Christiana Sims PA-C [address] [place] [address] 6 Month follow up and yearly physical 03/04/2025 5:20 PM EST Office Visit [address] [address] Basim White MD [address] [place] [address] 12 month follow up documented as of [...] documented as of this encounter Care Teams Motion Study Analyst Relationship Specialty Start [place] [address] [place] [address] PCP - General Family Medicine 06/10/16 08/08/17 Basim White MD 450 [place] [address] PCP - General Family Medicine 08/09/17 Nate Joyce DO Real Estate Agent/Broker 02/09/13 Paulie Sandra MD [address] [facility] 110 [place] [address] Primary Staff Physician Cardiology 07/04/1807/04 Paulie Sandra MD [address] [facility] [address] [place] [address] Primary Staff Physician Cardiology 07/04/18 Teagan Henriquez, RN 6000 [place] [address] Primary Care Cyber Security Consultant Internal Medicine 06/22/23 07/21/23 Pascale Kc, MILITARY EQUIPMENT SPECIALIST.LEATHER TANNER [id number] [place] [address] [facility] Family [facility] 03/26/24 07/04/24 Leeanne Balderas, MILITARY EQUIPMENT SPECIALIST.LEATHER TANNER [address] [place] [address] Concrete Batching Plant Operator Family [facility] 03/26/24 07/04/24 Juanita Luong PA-C [id number] [place] [address] Concrete Batching Plant Operator Family [facility] 03/26/24 07/04/24 Rubi Rodriguez, MILITARY EQUIPMENT SPECIALIST.LEATHER TANNER [address] [place] [address] Concrete Batching Plant Operator Family [facility] 03/26/24 07/04/24 Christiana Sims PA-C [address] [place] [address] [facility] Family Medicine 03/26/24 Tami Vazquez PA-C [address] [place] [address] Concrete Batching Plant Operator Family Medicine 06/07/24 07/04/24 Juanita Luong PA-C [address] [place] [address] Concrete Batching Plant Operator Family Medicine 07/11/24 07/25/24 Awa Sanchez PA-C [address] [place] [address] Concrete Batching Plant Operator Internal Medicine 09/03/24 documented as of this encounter
--- OUTSIDE RECORDS SUMMARY | 2024-09-09 00:44 | XMS_ITS | Encounter Summary ---
Author Organization [facility] Address [address] [place], [place] [address] Care Team Providers Care Skin Diving Teacher Name Role Phone Nate Joyce DO Unavailable [phone] Mariam Cruz MD Primary Care Provider Chioma Jara RN Unavailable [phone] Basim Cavazos Primary Care Provider Unavailabl e Pcp, No GAS AND OIL CHECKER Primary Care Provider Unavailabl e Anastasia Ruiz DO Primary Care Provider Basim White MD Primary Care Provider [phone] Paulie Sandra MD Unavailable Paulie Sandra MD Unavailable Teagan Henriquez RN Unavailable Pasc[employer] Kc GAS AND OIL CHECKER.HOME SALES SERVICE PROFESSIONAL Unavailable Leeanne Balderas GAS AND OIL CHECKER.HOME SALES SERVICE PROFESSIONAL Unavailable Juanita Luong PA-C Unavailable Rubi Rodriguez GAS AND OIL CHECKER.HOME SALES SERVICE PROFESSIONAL Unavailable Christiana Sims PA-C Unavailable Tami Vazquez PA-C Unavailable [phone] Juanita Luong PA-C Unavailable Awa Sanchez PA-C Unavailable Source Comments In the event this information is protected by the Federal Confidentiality of Alcohol and Drug AbusePatient Records regulations: The Federal rules restrict any use of the information to criminally investigate or prosecute any alcohol or drug abuse patient.[facility] Encounter Details Date Type Department Care Team (Late st Contact Info) Description 08/10/2013 Patient Msg Medical Records [address] [place] [address] Provider, Ccf RE: Appointment Cancellation Request Social History Tobacco [...] 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 Answer Date of Assessment Author No 07/31/2013 3:42 PM EDT Shilpa Westbrook MA * Are you blind or do you have serious difficulty seeing, even when wearing glasses? Answer Date of Assessment Author No 07/31/2013 3:42 PM EDT Shilpa Westbrook MA * Do you have serious difficulty walking or climbing stairs? Answer Date of Assessment Author No 07/31/2013 3:42 PM RAMONT Shilpa Westbrook MA * Do you have difficulty dressing or bathing? Answer Date of Assessment Author No 07/31/2013 3:42 PM EDT Shilpa Westbrook MA * Because of a physical, mental, or emotional condition, do you have difficulty doing errands alone such as visiting a doctor's office or shopping? Answer Date of Assessment Author No 07/31/2013 3:42 PM EDT Shilpa Westbrook MA documented as of this encounter Mental Status * Because of a physical, mental, or emotional condition, do you have serious difficulty concentrating, remembering, or making decisions? Answer Entry Date Author No 07/31/2013 3:42 PM EDT Shilpa Westbrook MA documented in this encounter Plan of Treatment Upcoming Encounters Date Type Department Care Team (Latest Contact Info) Description 09/24/2024 6:00 PM EDT [address] [address] Basim White MD [address] [place] [address] 3 month follow up 11/28/2024 9:40 AM EDT [facility] Endocrinology [place] [address] [place] [address] [place] [address] [address] Type one diabetes pump and cgm follow up 12/20/2024 4:00 PM EDT [facility] 450 [place] [address] Christiana Sims PA-C [address] [place] [address] 6 Month follow up and yearly physical 03/04/2025 5:20 PM EST Office Visit [address] [address] Basim White MD [address] [place] [address] 12 month follow up documented as of this encounter Visit Diagnoses Not on filedocumented in this encounter Additional Health Concerns Infection Onset Date Last Indicated Resolved Time COVID-19 Rule-Out 03/22/2020 03/22/202003/2303/23/2020 7:16 PM EST COVID-19 Confirmed 02/26/2021 02/26/2021 8:51 PM EST documented as of this encounter Care Teams Skin Diving Teacher Relationship Specialty Start Date End Date Mariam Cruz MD [address] [place] [address] PCP - General Family Medicine 02/09/13 03/08/16 Basim Cavazos PCP - General 03/09/16 04/14/16 Pcp, Karmen, GAS AND OIL CHECKER PCP - General 04/15/16 06/09/16 [place] [address] [place] [address] PCP - General Family Medicine 06/10/16 08/08/17 Basim White MD 450 [place] [address] PCP - General Family Medicine 08/09/17 Nate Joyce DO Big 6 Dealer 02/09/13 Chioma Jara RN 2262 [place] [address] Specialty Veterinary Surgeon Endocrinology 06/08/13 04/04/16 Paulie Sandra MD [address] [facility] 110 [place] [address] Primary Staff Physician Cardiology 07/04/1807/04 Paulie Sandra MD [address] [facility] [address] [place] [address] Primary Staff Physician Cardiology 07/04/18 Teagan Henriquez, JIE 6000 [place] [address] Primary Care Renewable Energy Technician Internal Medicine 06/22/23 07/21/23 Pascale Kc, GAS AND OIL CHECKER.HOME SALES SERVICE PROFESSIONAL [address] [place] [address] Vascular Surgery Physician Family Medicine 03/26/24 07/04/24 Leeanne Balderas, GAS AND OIL CHECKER.HOME SALES SERVICE PROFESSIONAL [address] [place] [address] Vascular Surgery Physician Family Medicine 03/26/24 07/04/24 Juanita Luong PA-C [id number] [place] [address] Vascular Surgery Physician Family Medicine 03/26/24 07/04/24 Rubi Rodriguez, GAS AND OIL CHECKER.HOME SALES SERVICE PROFESSIONAL [address] [place] [address] Vascular Surgery Physician Family Medicine 03/26/24 07/04/24 Christiana Sims PA-C [address] [place] [address] Vascular Surgery Physician Family Medicine 03/26/24 Tami Vazquez PA-C [address] [place] [address] Vascular Surgery Physician Family Medicine 06/07/24 07/04/24 Juanita Luong PA-C [address] [place] [address] Vascular Surgery Physician Family Medicine 07/11/24 07/25/24 Awa Sanchez PA-C 5172 [place] [address] Vascular Surgery Physician Internal Medicine 09/03/24 documented as of this encounter
--- OUTSIDE RECORDS SUMMARY | 2024-09-09 00:44 | XMS_ITS | Encounter Summary ---
Author Organization [facility] Address [address] [place], [place] [address] Care Team Providers Care Filter Tank Tender Helper Name Role Phone IsiahNate greenfield Unavailable [phone] Anastasia Ruiz DO Primary Care Provider Basim White MD Primary Care Provider [phone] Paulie Sandra MD Unavailable Paulie Sandra MD Unavailable Teagan Henriquez RN Unavailable Pascale Kc STRIKER OUT.GRANULATING BLENDER Unavailable Leeanne Balderas STRIKER OUT.GRANULATING BLENDER Unavailable [phone] Juanita Luong PA-C Unavailable Rubi Rodriguez STRIKER OUT.GRANULATING BLENDER Unavailable Christiana Sims PA-C Unavailable Tami Vazquez PA-C Unavailable [phone] Juanita Luong PA-C Unavailable Awa Sanchez PA-C Unavailable Source Comments In the event this information is protected by the Federal Confidentiality of Alcohol and Drug AbusePatient Records regulations: The Federal rules restrict any use of the information to criminally investigate or prosecute any alcohol or drug abuse patient.[facility] Encounter Details Date Type Department Care Team (Late st Contact Info) Description 03/28/2017 Get Medical Advice Family Medicine [address] [place] [address] Anastasia Ruiz DO [address] [place] [address] RE: Upcoming Appointment Question Social History Tobacco [...] 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 White * Telephone Encounter - Becky Cordova - 03/30/2017 12:[address] White: Diana asked I intervene and forward this My Chart message to you. It was initiated at your requestafter a conversation Parker (partner) had with you 03-28-17 regarding her cancelled appointment 03-28-17 which was rescheduled for 10-03-17. Any assistance you can give in scheduling her sooner would be appreciated. documented in this encounter Plan of Treatment Upcoming Encounters Date Type Department Care Team (Latest Contact Info) Description 09/24/2024 6:00 PM EDT [facility] Family Medicine [place] [address] [place] [address] Basim White MD [address] [place] [address] 3 month follow up 11/28/2024 9:40 AM EDT [facility] Endocrinology [place] [address] [place] [address] [place] [address] [address] Type one diabetes pump and cgm follow up 12/20/2024 4:00 PM EDT [facility] [address] [place] [address] Christiana Sims PA-C [address] [place] [address] 6 Month follow up and yearly physical 03/04/2025 5:20 PM EST Office Visit [facility] [address] [place] [address] Basim White MD [address] [place], [place] [address] 12 month follow up documented as of this encounter Goals Goal Patient Goal Type Associated Problems Recent Progress Patient-Stated? Author Care Coordination - Diabetes Care Coordination Counseling and coordination of care No Morena Jara, JIE Note: Knows type of diabetes. (e.g. [...] documented as of this encounter Care Teams Filter Tank Tender Helper Relationship Specialty [place] [address] [place] [address] PCP - General Family Medicine 06/10/16 08/08/17 Basim White MD [address] [place], [place] [id number] PCP - General Family Medicine 08/09/17 Nate Joyce DO Irrigating Pump Operator 02/09/13 Paulie Sandra MD [address] [facility] [address] [place] [phone] Primary Staff Physician Cardiology 07/04/1807/04 Paulie Sandra MD [address] [facility] 110 [place] [address] Primary Staff Physician Cardiology 07/04/18 Teagan Henriquez, RN 6000 [place] [address] Primary Care Sander And Buffer Internal Medicine 06/22/23 07/21/23 Pascale Kc APRN.GRANULATING BLENDER [address] [place] [address] Arts Manager Family Medicine 03/26/24 07/04/24 Leeanne Balderas APRN.GRANULATING BLENDER [address] [place] [address] Arts Manager Family Medicine 03/26/24 07/04/24 Juanita Luong PA-C [address] [place] [address] Arts Manager Family Medicine 03/26/24 07/04/24 Rubi Rodriguez APRN.GRANULATING BLENDER [address] [place] [address] Arts Manager Family Medicine 03/26/24 07/04/24 Christiana Sims PA-C [address] [place] [address] Arts Manager Family Medicine 03/26/24 Tami Vazquez PA-C [address] [place] [address] Arts Manager Family Medicine 06/07/24 07/04/24 Juanita Luong PA-C [address] [place] [address] Arts Manager Family Medicine 07/11/24 07/25/24 Awa Sanchez PA-C [address] [place] [address] Arts Manager Internal Medicine 09/03/24 documented as of this encounter
--- OUTSIDE RECORDS SUMMARY | 2024-09-09 00:44 | XMS_ITS | Encounter Summary ---
Author Organization [facility] Address [address] [place], [place] [address] Care Team Providers Care Baseball Club Manager Name Role Phone IsiahNate greenfield Cecelia OSBORNE Unavailable [phone] Basim White MD Primary Care Provider Paulie Sandra MD Unavailable [phone] Teagan Henriquez RN Unavailable Pasc[employer] Kc HUMAN RESOURCE ADVISER.OIL EXPERT Unavailable Leeanne Balderas HUMAN RESOURCE ADVISER.OIL EXPERT Unavailable [phone] Juanita Luong PA-C Unavailable Rubi Rodriguez HUMAN RESOURCE ADVISER.OIL EXPERT Unavailable Christiana Sims PA-C Unavailable Tami Vazquez PA-C Unavailable [phone] Juanita Luong PA-C Unavailable Awa Sanchez PA-C Unavailable Source Comments In the event this information is protected by the Federal Confidentiality of Alcohol and Drug AbusePatient Records regulations: The Federal rules restrict any use of the information to criminally investigate or prosecute any alcohol or drug abuse patient.[facility] Encounter Details Date Type Department Care Team (Kathryn saini Contact Info) Description 01/13/2021 Patient Msg Family Medicine [address] [place], [place] [id number] Provider, Ccf Navigation Scheduling Social History Tobacco Use Types Packs/Day Years [...] How often do you attend chur or congregation services? More than 4 times per year 09/29/2019 Do you belong to any clubs o r organizations such as adventist groups, unions, fraternal or athletic groups, or school groups? No 09/29/2019 How often do you attend meet ings of the clubs or organizations you belong to? Never 09/29/2019 Are you , , di vorced, , never , or living with a partner? 09/29/2019 PHQ-2 Answer Date Recorded PHQ-2 score 0 02/04/2020 [facility] - Occupational Stress Questionnaire Answer Date [...] N ot on file 03/22/2020 Data from: https://www.neighborhoodatlas.medicine.[facility]/. 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 on file Not [...] Date Author No 01/25/2017 3:55 PM EDT Beka Osmany JIE couch documented in this encounter Plan of Treatment Upcoming Encounters Date Type Department Care Team (Latest Contact Info) Description 09/24/2024 6:00 PM EDT [address] [address] Basim White MD [address] [place] [address] 3 month follow up 11/28/2024 9:40 AM EDT [facility] Endocrinology [place] [address] [place] [address] [place] [address] [address] Type one diabetes pump and cgm follow up 12/20/2024 4:00 PM EDT [address] [address] Christiana Sims PA-C [address] [place] [address] 6 Month follow up and yearly physical 03/04/2025 5:20 PM EST Office Visit [address] [address] Basim White MD [address] [place] [address] 12 month follow up documented as of this encounter Goals Goal Patient Goal Type Associated Problems Recent Progress Patient-Stated? Author Care Coordination - Diabetes Care Coordination Counseling and coordination of care Morena Velrade RN Note: Knows type of diabetes. (e.g. [...] documented as of this encounter Care Teams Baseball Club Manager Relationship Specialty Start Date End Date Basim White MD [address] [place] [address] PCP - General Family Medicine 08/09/17 Nate Joyce DO Elderly Companion 02/09/13 Paulie Sandra MD [address] [address] Primary Staff Physician Cardiology 07/04/18 Teagan Henriquez, RN 6000 [place] [address] Primary Care Tobacco Sprayer Internal Medicine 06/22/23 07/21/23 Pascale Kc, HUMAN RESOURCE ADVISER.OIL EXPERT [address] [place] [address] Cigar Packer Family Medicine 03/26/24 07/04/24 Leeanne Balderas, HUMAN RESOURCE ADVISER.OIL EXPERT [address] [place] [address] Cigar Packer Family Medicine 03/26/24 07/04/24 Juanita Luong PA-C [address] [place] [address] Cigar Packer Family Medicine 03/26/24 07/04/24 Rubi Rodrigeuz, HUMAN RESOURCE ADVISER.OIL EXPERT [address] [place] [address] Cigar Packer Family Medicine 03/26/24 07/04/24 Christiana Sims PA-C [address] [place] [address] Cigar Packer Family Medicine 03/26/24 aTmi Vazquez PA-C [address] [place] [address] Cigar Packer Family Medicine 06/07/24 07/04/24 Juanita Luong PA-C [address] [place] [address] Cigar Packer Family Medicine 07/11/24 07/25/24 Awa Sanchez PA-C [address] [place] [address] Cigar Packer Internal Medicine 09/03/24 documented as of this encounter
--- OUTSIDE RECORDS SUMMARY | 2024-09-09 00:44 | XMS_ITS | Encounter Summary ---
Author Organization [facility] Address [address] [place], [place] [address] Care Team Providers Care Chief Relay Tester Name Role Phone Nate Joyce Unavailable [phone] Basim White MD Primary Care Provider [phone] Paulie Sandra MD Unavailable [phone] Paulie Sandra MD Unavailable Teagan Henriquez RN Unavailable Pascale Kc SMART ENERGY SPECIALIST.CONCRETE GUN OPERATOR Unavailable Leeanne Balderas SMART ENERGY SPECIALIST.CONCRETE GUN OPERATOR Unavailable [phone] Juanita Luong PA-C Unavailable Rubi Rodriguez SMART ENERGY SPECIALIST.CONCRETE GUN OPERATOR Unavailable Christiana Sims PA-C Unavailable Tami Vazquez PA-C Unavailable [phone] Juanita Luong PA-C Unavailable Awa Sanchez PA-C Unavailable Source Comments In the event this information is protected by the Federal Confidentiality of Alcohol and Drug AbusePatient Records regulations: The Federal rules restrict any use of the information to criminally investigate or prosecute any alcohol or drug abuse patient.[facility] Encounter Details Date Type Department Care Team (Kathryn saini Contact Bill) Description 02/25/2019 Patient Msg General Surgery [address] [id number] Belen Hodge, RD [address] [id number] Appointment Cancellation Request Social History Tobacco Use [...] Industry Job Start Date Job End Date [employer] Not on file Not on file Not [...] Info) Description 09/24/2024 6:00 PM EDT [address] [address] Basim White MD [address] [place] [address] 3 month follow up 11/28/2024 9:40 AM EDT [facility] Endocrinology [place] [address] [place] [address] [place] [address] [address] Type one diabetes pump and cgm follow up 12/20/2024 4:00 PM EDT [address] [address] Christiana Sims PA-C [address] [place] [address] 6 Month follow up and yearly physical 03/04/2025 5:20 PM EST Office Visit [address] [address] Basim White MD [address] [place] [address] 12 month follow up documented as of [...] documented as of this encounter Care Teams Chief Relay Tester Relationship Specialty Start Date End Date Basim White MD [address] [place] [address] PCP - General Family Medicine 08/09/17 Nate Joyce DO Paraffin Machine Operator 02/09/13 Paulie Sandra MD [address] [address] Primary Staff Physician Cardiology 07/04/1807/04 Paulie Sandra MD [address] [facility] [address] [address] Primary Staff Physician Cardiology 07/04/18 Teagan Henriquez, RN 6000 [place] [address] Primary Care Bulk Filler Internal Medicine 06/22/23 07/21/23 Pascale Kc, SMART ENERGY SPECIALIST.CONCRETE GUN OPERATOR [address] [place] [address] Mirror Fabrication Supervisor Family Medicine 03/26/24 07/04/24 Leeanne Balderas, SMART ENERGY SPECIALIST.CONCRETE GUN OPERATOR [address] [place] [address] Mirror Fabrication Supervisor Family Medicine 03/26/24 07/04/24 Juanita Luong PA-C [address] [place] [address] Mirror Fabrication Supervisor Family Medicine 03/26/24 07/04/24 Rubi Rodriguez, SMART ENERGY SPECIALIST.CONCRETE GUN OPERATOR [address] [place] [address] Mirror Fabrication Supervisor Family Medicine 03/26/24 07/04/24 Christiana Sims PA-C [address] [place] [address] Mirror Fabrication Supervisor Family Medicine 03/26/24 Tami Vazquez PA-C [address] [place] [address] Mirror Fabrication Supervisor Family Medicine 06/07/24 07/04/24 Juanita Luong PA-C [address] [place] [address] Mirror Fabrication Supervisor Family Medicine 07/11/24 07/25/24 Awa Sanchez PA-C [address] [place] [address] Mirror Fabrication Supervisor Internal Medicine 09/03/24 documented as of this encounter
--- OUTSIDE RECORDS SUMMARY | 2024-09-09 00:44 | XMS_ITS | Encounter Summary ---
Author Organization [facility] Address [address] [place], [place] [address] Care Team Providers Care Mortician Helper Name Role Phone Nate Joyce Unavailable [phone] Basim White MD Primary Care Provider Paulie Sandra MD Unavailable [phone] Paulie Sandra MD Unavailable Teagan Henriquez RN Unavailable Pasc[employer] Kc ONLINE MARKETING DIRECTOR.BOARD FINISHER Unavailable Leeanne Balderas ONLINE MARKETING DIRECTOR.BOARD FINISHER Unavailable [phone] Juanita Luong PA-C Unavailable Rubi Rodriguez ONLINE MARKETING DIRECTOR.BOARD FINISHER Unavailable Christiana Sims PA-C Unavailable Tami Vazquez PA-C Unavailable [phone] Juanita Luong PA-C Unavailable Awa Sanchez PA-C Unavailable Source Comments In the event this information is protected by the Federal Confidentiality of Alcohol and Drug AbusePatient Records regulations: The Federal rules restrict any use of the information to criminally investigate or prosecute any alcohol or drug abuse patient.[facility] Encounter Details Date Type Department Care Team (Latest Contact Info) Description 10/27/2018 Patient Msg Medical Records [address] [place] [address] Provider, Ccf Recommendations from PCP Social History Tobacco Use Types Packs/Day Years [...] 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 Not on file Not [...] Contact Info) Description 09/24/2024 6:00 PM EDT [address] [address] Basim White MD [address] [place] [address] 3 month follow up 11/28/2024 9:40 AM EDT [facility] Endocrinology [place] [address] [place] [address] [place] [address] [address] Type one diabetes pump and cgm follow up 12/20/2024 4:00 PM EDT [address] [address] Christiana Sims PA-C [address] [place] [address] 6 Month follow up and yearly physical 03/04/2025 5:20 PM EST Office Visit [address] [address] Basim White MD [address] [place] [address] 12 month follow up documented as of [...] documented as of this encounter Care Teams Mortician Helper Relationship Specialty Start Date End Date Basim White MD [address] [place] [address] PCP - General Family Medicine 08/09/17 Nate Joyce DO Production Honing Machine Operator 02/09/13 Paulie Sandra MD [address] [phone] Primary Staff Physician Cardiology 07/04/1807/04 Paulie Sandra MD [address] [facility] [address] [place] [address] Primary Staff Physician Cardiology 07/04/18 Teagan Henriquez, RN [address] [phone] Primary Care Internet Project Manager Internal Medicine 06/22/23 07/21/23 Pascale Kc, ONLINE MARKETING DIRECTOR.BOARD FINISHER [address] [place] [address] [facility] Family Medicine 03/26/24 07/04/24 Leeanne Balderas, ONLINE MARKETING DIRECTOR.BOARD FINISHER [address] [place] [address] [facility] Family Medicine 03/26/24 07/04/24 Juanita Luong PA-C [address] [place] [address] [facility] Family Medicine 03/26/24 07/04/24 Rubi Rodriguez, ONLINE MARKETING DIRECTOR.BOARD FINISHER [address] [place] [address] [facility] Family Medicine 03/26/24 07/04/24 Christiana Sims PA-C [address] [place] [address] [facility] Family Medicine 03/26/24 Tami Vazquez PA-C [address] [place] [address] [facility] Family Medicine 06/07/24 07/04/24 Juanita Luong PA-C [address] [place] [address] Undercoat Sprayer Family Medicine 07/11/24 07/25/24 Awa Sanchez PA-C [address] [place], [place] [address] Undercoat Sprayer Internal Medicine 09/03/24 documented as of this encounter
--- OUTSIDE RECORDS SUMMARY | 2024-09-09 00:44 | XMS_ITS | Encounter Summary ---
Author Organization [facility] Address [address] [place], [place] [address] Care Team Providers Care Mail Distribution Clerk Name Role Phone IsiahNate greenfield Unavailable [phone] Anastasia Ruiz DO Primary Care Provider Basim White MD Primary Care Provider [phone] Paulie Sandra MD Unavailable Paulie Sandra MD Unavailable Teagan Henriquez RN Unavailable Pascale Kc BOX ANNEALER.COMMERCIAL ACCOUNT OFFICER Unavailable Leeanne Balderas BOX ANNEALER.COMMERCIAL ACCOUNT OFFICER Unavailable [phone] Juanita Luong PA-C Unavailable Rubi Rodriguez BOX ANNEALER.COMMERCIAL ACCOUNT OFFICER Unavailable Christiana Sims PA-C Unavailable Tami Vazquez PA-C Unavailable [phone] Juanita Luong PA-C Unavailable Awa Sanchez PA-C Unavailable Source Comments In the event this information is protected by the Federal Confidentiality of Alcohol and Drug AbusePatient Records regulations: The Federal rules restrict any use of the information to criminally investigate or prosecute any alcohol or drug abuse patient.[facility] Encounter Details Date Type Department Care Team (Late st Contact Info) Description 03/03/2017 Patient Msg Family Medicine [address] [place] [address] Provider, Ccf Dr. 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 on file [...] Contact Info) Description 09/24/2024 6:00 PM EDT [address] [address] Basim White MD [address] [place] [address] 3 month follow up 11/28/2024 9:40 AM EDT [facility] Endocrinology [place] [address] [place] [address] [place] [address] [address] Type one diabetes pump and cgm follow up 12/20/2024 4:00 PM EDT [address] [address] Christiana Sims PA-C [address] [place] [address] 6 Month follow up and yearly physical 03/04/2025 5:20 PM EST Office Visit [address] [address] Basim White MD [address] [place] [address] 12 month follow up documented as of [...] documented as of this encounter Care Teams Mail Distribution Clerk Relationship Specialty Start [place] [address] [place] [address] PCP - General Family Medicine 06/10/16 08/08/17 Basim White MD [address] [place] [address] PCP - General Family Medicine 08/09/17 Nate Joyce DO Stroke Coordinator 02/09/13 Paulie Sandra MD [address] [facility] [address] [place] [phone] Primary Staff Physician Cardiology 07/04/1807/04 Paulie Sandra MD [address] [facility] [address] [place] [address] Primary Staff Physician Cardiology 07/04/18 Teagan Henriquez, JIE 6000 [place] [address] Primary Care Automatic Toe Laster Internal Medicine 06/22/23 07/21/23 Pascale Kc, BOX ANNEALER.COMMERCIAL ACCOUNT OFFICER [id number] [place] [address] Legal Instruments Examiner Family [facility] 03/26/24 07/04/24 Leeanne Balderas, BOX ANNEALER.COMMERCIAL ACCOUNT OFFICER [address] [place] [address] Legal Instruments Examiner Family Medicine 03/26/24 07/04/24 Juanita Luong PA-C [address] [place] [address] Legal Instruments Examiner Family Medicine 03/26/24 07/04/24 Rubi Rodriguez, BOX ANNEALER.COMMERCIAL ACCOUNT OFFICER [address] [place] [address] Legal Instruments Examiner Family Medicine 03/26/24 07/04/24 Christiana Sims PA-C [address] [place] [address] Legal Instruments Examiner Family Medicine 03/26/24 Tami Vazquez PA-C [address] [place] [address] Legal Instruments Examiner Family Medicine 06/07/24 07/04/24 Juanita Luong PA-C [address] [place] [address] Legal Instruments Examiner Family Medicine 07/11/24 07/25/24 Awa Sanchez PA-C [address] [place] [address] Legal Instruments Examiner Internal Medicine 09/03/24 documented as of this encounter
--- OUTSIDE RECORDS SUMMARY | 2024-09-09 00:44 | XMS_ITS | Encounter Summary ---
Author Organization [facility] Address [address] [place], [place] [id number] Care Team Providers Care Director Hospice Operations Name Role Phone Nate Joyce Unavailable [phone] Basim White MD Primary Care Provider Paulie Sandra MD Unavailable [phone] Paulie Sandra MD Unavailable Teagan Henriquez RN Unavailable [facility] [facility] TRAY ROOM WORKER.HOME CARE MANAGER Unavailable Leeanne Balderas TRAY ROOM WORKER.HOME CARE MANAGER Unavailable [phone] Juanita Luong PA-C Unavailable Rubi Rodriguez TRAY ROOM WORKER.HOME CARE MANAGER Unavailable Christiana Sims PA-C Unavailable Tami Vazquez PA-C Unavailable [phone] Juanita Luong PA-C Unavailable Awa Sanchez PA-C Unavailable Source Comments In the event this information is protected by the Federal Confidentiality of Alcohol and Drug AbusePatient Records regulations: The Federal rules restrict any use of the information to criminally investigate or prosecute any alcohol or drug abuse patient.[facility] Encounter Details Date Type Department Care Team (Late st Contact Info) Description 11/28/2018 Patient Msg Allergy [address] [place], [place] [id number] [place] [address] [place] [address] RE: Appointment Cancellation Request Social History Tobacco [...] Industry Job Start Date Job End Date [employer] Not on file Not on file Not [...] Contact Info) Description 09/24/2024 6:00 PM EDT [address] [address] Basim White MD [address] [place] [address] 3 month follow up 11/28/2024 9:40 AM EDT [facility] Endocrinology [place] [address] [place] [address] [place] [address] [address] Type one diabetes pump and cgm follow up 12/20/2024 4:00 PM EDT [address] [address] Christiana Sims PA-C [address] [place] [address] 6 Month follow up and yearly physical 03/04/2025 5:20 PM EST Office Visit [address] [address] Basim White MD [address] [place] [address] 12 month follow up documented as of [...] documented as of this encounter Care Teams Director Hospice Operations Relationship Specialty Start Date End Date Basim White MD [address] [place] [address] PCP - General Family Medicine 08/09/17 Nate Joyce DO Theatrical Trouper 02/09/13 Paulie Sandra MD [address] [address] Primary Staff Physician Cardiology 07/04/1807/04 Paulie Sandra MD [address] [phone] Primary Staff Physician Cardiology 07/04/18 Teagan Henriquez, RN 6000 [place] [address] Primary Care Loan Assistant Internal Medicine 06/22/23 07/21/23 [employer] [facility], TRAY ROOM WORKER.HOME CARE MANAGER [address] [place] [address] Job Foreman Family Medicine 03/26/24 07/04/24 Leeanne Balderas, TRAY ROOM WORKER.HOME CARE MANAGER [address] [place] [address] Job Foreman Family Medicine 03/26/24 07/04/24 Juanita Luong PA-C [address] [place] [address] Job Foreman Family Medicine 03/26/24 07/04/24 Rubi Rodriguez, TRAY ROOM WORKER.HOME CARE MANAGER [address] [place] [address] Job Foreman Family Medicine 03/26/24 07/04/24 Christiana Sims PA-C [address] [place] [address] Job Foreman Family Medicine 03/26/24 Tami Vazquez PA-C [address] [place] [address] Job Foreman Family Medicine 06/07/24 07/04/24 Juanita Luong PA-C [address] [place] [address] Job Foreman Family Medicine 07/11/24 07/25/24 Awa Sanchez PA-C [facility]2 [place], [place] [id number] Job Foreman Internal Medicine 09/03/24 documented as of this encounter
--- OUTSIDE RECORDS SUMMARY | 2024-09-09 00:44 | XMS_ITS | Encounter Summary ---
Author Organization [facility] Address [address] [place], [place] [address] Care Team Providers Care Net Application Support Specialist Name Role Phone IsiahNate greenfield Cecelia OSBORNE Unavailable [phone] Basim White MD Primary Care Provider Paulie Sandra MD Unavailable [employer] SURGICAL SERVICES TECH.MULTIFOCAL BUTTON GENERATOR Unavailable Leeanne Balderas SURGICAL SERVICES TECH.MULTIFOCAL BUTTON GENERATOR Unavailable [phone] Juanita Luong PA-C Unavailable Rubi Rodriguez SURGICAL SERVICES TECH.MULTIFOCAL BUTTON GENERATOR Unavailable Christiana Sims PA-C Unavailable Tami Vazquez PA-C Unavailable [phone] Juanita Luong PA-C Unavailable Awa Sanchez PA-C Unavailable Source Comments In the event this information is protected by the Federal Confidentiality of Alcohol and Drug AbusePatient Records regulations: The Federal rules restrict any use of the information to criminally investigate or prosecute any alcohol or drug abuse patient.[facility] Encounter Details Date Type Department Care Team (Late st Contact Info) Description 07/24/2023 Get Medical Advice Family Medicine [place] [address] [place] [address] Basim White MD [address] [place], [place] [phone] Tramadol Social History Tobacco Use Types Packs/Day Years Used Date Smoking Tobacco: Never Smokeless Tobacco: Never Alcohol Use Standard Drinks/Week Comments Yes 0 (1 standard drink = 0.6 oz pur e alcohol) rarely [facility] Utilities Answer Date Recorded In the past 12 months has th e electric, gas, oil, or water company threatened to [...] Never 05/20/2023 How often do you attend [facility] or jewish services? More than 4 times per year 05/20/2023 Do you belong to any clubs o r organizations such as mu-ism groups, unions, fraternal or athletic groups, or [...] Answer Date Recorded PHQ-2 score 4 06/25/2023 [facility] [place] of Occupat ional Health - Occupational Stress [...] slept in a correction (including now)? No 06/20/2023 Area Deprivation Index Answer Date Sergio rded National Score (1-100), lower number is lower ri sk 79 08/26/2022 State Score (1-10), lower number is lower risk 7 08/26/2022 Data from: https://www.neighborhoodatlas.medicine.[facility].edu/. Last address used for calculation [address] [...] Industry Job Start Date Job End Date [employer] Not on file Not on file Not [...] Miscellaneous Notes * Telephone Encounter - Yuridia Peoples MA - 07/25/2023 7:43 AM EDT Patient has been identified by name and date of : Yes Patient phones requesting refills as follows: Requested Prescriptions Pending Prescriptions Disp Refills traMADol (ULTRAM) 50 mg tablet 60 tablet 2 Sig: Take 1 tablet by mouth every 4 hours as needed for pain for up to 61 days. Last appointment: 05/23/2023 Next scheduled appointment: Appointments for Next 60 Days Date Time Provider Location Dept Phone 08/05/2023 8:00 AM PIEDAD BRICENO [facility] [phone] 08/18/2023 2:30 PM CHARLENE LINN BULK RECEIVER BALANCE [phone] 08/22/2023 7:30 AM [facility] 08/22/2023 8:00 AM [facility] IMAGING [facility] 08/22/2023 8:30 AM EKG/STRESS [facility] [phone] 08/22/2023 9:00 AM CARD LAB PROVIDER [facility] [phone] 08/24/2023 1:40 PM JARRED DUPONT [facility] [phone] 08/26/2023 3:00 PM СВЕТЛАНА HERNANDEZ S [facility] [phone] 09/09/2023 11:00 AM PORFIRIO PARSONS S [phone] 09/13/2023 10:00 AM INJECTION NM [facility] [phone] 09/13/2023 11:30 AM SCAN [place] [facility] REJ [phone] 09/21/2023 9:00 AM SAMIRA DUVAL C Bldg [phone] RX INSTRUCTIONS: Respond to pharmacy only and close encounter Yuridia Peoples MA documented in this encounter Plan of Treatment Upcoming Encounters Date Type Department Care Team (Latest Contact Info) Description 09/24/2024 6:00 PM EDT [facility] Family Medicine [place] [address] [place], [place] [phone] Basim White MD [address] [place] [address] 3 month follow up 11/28/2024 9:40 AM EDT [facility] Endocrinology [address] [address] [place] [address] [address] [place] [address] Type one diabetes pump and cgm follow up 12/20/2024 4:00 PM EDT [facility] [address] [place] [address] Christiana Sims PA-C [address] [place] [address] 6 Month follow up and yearly physical 03/04/2025 5:20 PM EST Office Visit [facility] [address] [place] [address] Basim White MD [address] [place] [address] 12 month follow up documented as of [...] as of this encounter Visit Diagnoses Diagnosis Chronic pain syndrome documented in this encounter Care Teams Net Application Support Specialist Relationship Specialty Start Date End Date Basim White MD [address] [place] [address] PCP - General Family Medicine 08/09/17 Nate Joyce DO Diamond Finishing Supervisor 02/09/13 Paulie Sandra MD [address] [phone] Primary Staff Physician Cardiology 07/04/18 [employer] [facility] APRN.MULTIFOCAL BUTTON GENERATOR [address] [place] [address] Vfx Artist Family Medicine 03/26/24 07/04/24 Leeanne Balderas APRN.MULTIFOCAL BUTTON GENERATOR [address] [place] [address] Vfx Artist Family Medicine 03/26/24 07/04/24 Juanita Luong PA-C [address] [place] [address] Vfx Artist Family Medicine 03/26/24 07/04/24 Rubi Rodriguez APRN.MULTIFOCAL BUTTON GENERATOR [address] [place] [address] Vfx Artist Family Medicine 03/26/24 07/04/24 Christiana Sims PA-C [address] [place] [address] Vfx Artist Family Medicine 03/26/24 Tami Vazquez PA-C [address] [place] [address] Vfx Artist Family Medicine 06/07/24 07/04/24 Juanita Luong PA-C [address] [place] [address] Vfx Artist Family Medicine 07/11/24 07/25/24 Awa Sanchez PA-C [address] [place] [address] Vfx Artist Internal Medicine 09/03/24 documented as of this encounter
--- OUTSIDE RECORDS SUMMARY | 2024-09-09 00:44 | XMS_ITS | Encounter Summary ---
Author Organization [facility] Address [address] [place], [place] [address] Care Team Providers Care Wine Bottle Inspector Name Role Phone IsiahNate greenfield Cecelia OSBORNE Unavailable [phone] Basim White MD Primary Care Provider Paulie Sandra MD Unavailable [employer] ANIMATION PRODUCER.CROSS ROLLER Unavailable Leeanne Balderas ANIMATION PRODUCER.CROSS ROLLER Unavailable [phone] Juanita Luong PA-C Unavailable Rubi Rodriguez ANIMATION PRODUCER.CROSS ROLLER Unavailable Christiana Sims PA-C Unavailable Tami Vazquez PA-C Unavailable [phone] Juanita Luong PA-C Unavailable Awa Sanchez PA-C Unavailable Source Comments In the event this information is protected by the Federal Confidentiality of Alcohol and Drug AbusePatient Records regulations: The Federal rules restrict any use of the information to criminally investigate or prosecute any alcohol or drug abuse patient.[facility] Encounter Details Date Type Department Care Team (Late st Contact Info) Description 07/26/2023 Patient Msg Family Medicine [place] [address] [place] [address] Provider, Ccf Wheelchair Evaluation Social History Tobacco Use Types Packs/Day Years Used Date Smoking Tobacco: Never Smokeless Tobacco: Never Alcohol Use Standard Drinks/Week Comments Yes 0 (1 standard drink = 0.6 oz pur e alcohol) rarely [facility] Utilities Answer Date Recorded In the past [...] Never 05/20/2023 How often do you attend [facility] or orthodox services? More than 4 times per year 05/20/2023 Do you belong to any clubs o r organizations such as buddhist groups, unions, fraternal or athletic groups, or [...] Answer Date Recorded PHQ-2 score 4 06/25/2023 [facility] [place] of Occupat ional Health - Occupational Stress [...] is lower risk 7 08/26/2022 Data from: https://www.neighborhoodatlas.medicine.[facility].edu/. Last address used for calculation [address] [...] Industry Job Start Date Job End Date [employer] Not on file Not on file Not [...] Contact Info) Description 09/24/2024 6:00 PM EDT [facility] Family Medicine [place] [address] [place] [address] Basim White MD [address] [place] [address] 3 month follow up 11/28/2024 9:40 AM EDT [facility] Endocrinology [address] [address] [place] [address] [facility] [address] [place] [address] Type one diabetes pump and cgm follow up 12/20/2024 4:00 PM EDT [facility] [address] [place] [address] Christiana Sims PA-C [address] [place] [address] 6 Month follow up and yearly physical 03/04/2025 5:20 PM EST Office Visit [facility] 450 [place] [address] Basim White MD [address] [place] [address] 12 month follow up documented as of [...] on filedocumented in this encounter Care Teams Wine Bottle Inspector Relationship Specialty Start Date End Date Basim White MD [address] [place] [address] PCP - General Family Medicine 08/09/17 Nate Joyce DO Auto Top Mechanic 02/09/13 Paulie Sandra MD [address] [phone] Primary Staff Physician Cardiology 07/04/18 [employer] [facility] ANIMATION PRODUCER.CROSS ROLLER [address] [place] [address] Public Address [facility] 03/26/24 07/04/24 Leeanne Balderas APRN.CROSS ROLLER [address] [place] [address] Public Address System Operator Family Medicine 03/26/24 07/04/24 Juanita Luong PA-C [address] [place] [address] Public Address System Operator Family Medicine 03/26/24 07/04/24 Rubi Rodriguez APRN.CROSS ROLLER [address] [place] [address] Public Address System Operator Family Medicine 03/26/24 07/04/24 Christiana Sims PA-C [address] [place] [address] Public Address System Operator Family Medicine 03/26/24 Taim Vazquez PA-C [address] [place] [address] Public Address System Operator Family Medicine 06/07/24 07/04/24 Juanita Luong PA-C [address] [place] [address] Public Address System Operator Family Medicine 07/11/24 07/25/24 Awa Sanchez PA-C [address] [place] [phone] Public Address System Operator Internal Medicine 09/03/24 documented as of this encounter
--- OUTSIDE RECORDS SUMMARY | 2024-09-09 00:44 | XMS_ITS | Encounter Summary ---
Author Organization [facility] Address [address] [place], [place] [address] Care Team Providers Care Call Center Supervisor Name Role Phone IsiahNate greenfield Cecelia OSBORNE Unavailable [phone] Basim White MD Primary Care Provider Paulie Sandra MD Unavailable Teagan Henriquez RN Unavailable [facility] RECREATION THERAPY AIDES TEACHER.COST RECORDER Unavailable Leeanne Balderas RECREATION THERAPY AIDES TEACHER.COST RECORDER Unavailable [phone] Juanita Luong PA-C Unavailable Rubi Rodriguez RECREATION THERAPY AIDES TEACHER.COST RECORDER Unavailable Christiana Sims PA-C Unavailable Tami Vazquez PA-C Unavailable [phone] Juanita Luong PA-C Unavailable Awa Sanchez PA-C Unavailable Source Comments In the event this information is protected by the Federal Confidentiality of Alcohol and Drug AbusePatient Records regulations: The Federal rules restrict any use of the information to criminally investigate or prosecute any alcohol or drug abuse patient.[facility] Encounter Details Date Type Department Care Team (Late Contact Info) Description 01/05/2021 Patient Msg Endocrinology [address] [place] [address] [place] [address] [place] [address] Pump changes Social History Tobacco Use Types Packs/Day Years [...] How often do you attend chur or quaker services? More than 4 times per year 09/29/2019 Do you belong to any clubs o r organizations such as yarsanism groups, unions, fraternal or athletic groups, or school groups? No 09/29/2019 How often do you attend meet ings of the clubs or organizations you belong to? Never 09/29/2019 Are you , , di vorced, , never , or living with a partner? 09/29/2019 PHQ-2 Answer Date Recorded PHQ-2 score 0 02/04/2020 [facility] of Occupat ional Health - [...] on file 03/22/2020 Data from: https://www.neighborhoodatlas.medicine.[facility].edu/. Last address used for calculation [...] Contact Info) Description 09/24/2024 6:00 PM EDT [address] [address] Basim White MD [address] [place] [address] 3 month follow up 11/28/2024 9:40 AM EDT [facility] Endocrinology [place] [address] [place] [phone] [place] [address] [address] Type one diabetes pump and cgm follow up 12/20/2024 4:00 PM EDT [address] [address] Christiana Sims PA-C [address] [place] [address] 6 Month follow up and yearly physical 03/04/2025 5:20 PM EST Office Visit [address] [address] Basim White MD [address] [place] [address] 12 month follow up documented as of [...] documented as of this encounter Care Teams Call Center Supervisor Relationship Specialty Start Date End Date Basim White MD [address] [place] [address] PCP - General Family Medicine 08/09/17 Nate Joyce DO Spray Rig Operator 02/09/13 Paulie Sandra MD [address] [address] Primary Staff Physician Cardiology 07/04/18 Teagan Henriquez, RN 6000 [place] [address] Primary Care Cost Controller Internal Medicine 06/22/23 07/21/23 [facility] [facility] RECREATION THERAPY AIDES TEACHER.COST RECORDER [address] [place] [address] Jig And Fixture Builder Family Medicine 03/26/24 07/04/24 Leeanne Balderas, RECREATION THERAPY AIDES TEACHER.COST RECORDER [address] [place] [address] Jig And Fixture Builder Family Medicine 03/26/24 07/04/24 Juanita Luong PA-C [address] [place] [address] Jig And Fixture Builder Family Medicine 03/26/24 07/04/24 Rubi Rodriguez, RECREATION THERAPY AIDES TEACHER.COST RECORDER [address] [place] [address] Jig And Fixture Builder Family Medicine 03/26/24 07/04/24 Christiana Sims PA-C [address] [place] [address] Jig And Fixture Builder Family Medicine 03/26/24 Tami Vazquez PA-C [address] [place] [address] Jig And Fixture Builder Family Medicine 06/07/24 07/04/24 Juanita Luong PA-C [address] [place] [address] Jig And Fixture Builder Family Medicine 07/11/24 07/25/24 Awa Sanchez PA-C [address] [place] [phone] Jig And Fixture Builder Internal Medicine 09/03/24 documented as of this encounter
--- OUTSIDE RECORDS SUMMARY | 2024-09-09 00:44 | XMS_ITS | Encounter Summary ---
Author Organization [facility] Address [address] [place], [place] [address] Care Team Providers Care Prize Jacker Name Role Phone IsiahNate greenfield Cecelia OSBORNE Unavailable [phone] Basim White MD Primary Care Provider Paulie Sandra MD Unavailable Teagan Henriquez RN Unavailable [employer] [facility] PHYSICIAN LOCUMS URGENT CARE.FINANCIAL SYSTEMS ADMINISTRATOR Unavailable Leeanne Balderas PHYSICIAN LOCUMS URGENT CARE.FINANCIAL SYSTEMS ADMINISTRATOR Unavailable [phone] Juanita Luong PA-C Unavailable Rubi Rodriguez PHYSICIAN LOCUMS URGENT CARE.FINANCIAL SYSTEMS ADMINISTRATOR Unavailable Christiana Sims PA-C Unavailable Tami Vazquez PA-C Unavailable [phone] Juanita Luong PA-C Unavailable Awa Sanchez PA-C Unavailable Source Comments In the event this information is protected by the Federal Confidentiality of Alcohol and Drug AbusePatient Records regulations: The Federal rules restrict any use of the information to criminally investigate or prosecute any alcohol or drug abuse patient.[facility] Encounter Details Date Type Department Care Team (Late Contact Info) Description 03/24/2021 Get Medical Advice Endocrinology [address] [place] [address] [place] [address] [place] [address] [employer] share Social History Tobacco Use Types Packs/Day Years [...] Answer Date Recorded PHQ-2 score 5 03/03/2021 [facility] of Occupat ional Health - Occupational [...] place to sleep or slept in a [place] health care facility (including now)? 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 file [...] 3:55 PM EDT Ireland, Osmany ah, RN * Do you have difficulty dressing [...] Contact Info) Description 09/24/2024 6:00 PM EDT [address] [address] Basim White MD [address] [place] [address] 3 month follow up 11/28/2024 9:40 AM EDT [facility] Endocrinology [place] [address] [place] [phone] [place] [address] [address] Type one diabetes pump and cgm follow up 12/20/2024 4:00 PM EDT [address] [address] Christiana Sims PA-C [address] [place] [address] 6 Month follow up and yearly physical 03/04/2025 5:20 PM EST Office Visit [address] [address] Basim White MD [address] [place] [address] 12 month follow up documented as of [...] on filedocumented in this encounter Care Teams Prize Jacker Relationship Specialty Start Date End Date Basim White MD [address] [place] [address] PCP - General Family Medicine 08/09/17 Nate Joyce DO Consulting Engineer 02/09/13 Paulie Sandra MD [address] [address] Primary Staff Physician Cardiology 07/04/18 Teagan Henriquez, RN 6000 [place] [address] Primary Care Outdoor Landscape Architect Internal Medicine 06/22/23 07/21/23 [employer], PHYSICIAN LOCUMS URGENT CARE.FINANCIAL SYSTEMS ADMINISTRATOR [address] [place] [address] Network Architect Family Medicine 03/26/24 07/04/24 Leeanne Balderas, PHYSICIAN LOCUMS URGENT CARE.FINANCIAL SYSTEMS ADMINISTRATOR [address] [place] [address] Network Architect Family Medicine 03/26/24 07/04/24 Juanita Luong PA-C [address] [place] [address] Network Architect Family Medicine 03/26/24 07/04/24 Rubi Rodriguez, PHYSICIAN LOCUMS URGENT CARE.FINANCIAL SYSTEMS ADMINISTRATOR [address] [place] [address] Network Architect Family Medicine 03/26/24 07/04/24 Christiana Sims PA-C [address] [place] [address] Network Architect Family Medicine 03/26/24 Tami Vazquez PA-C [address] [place] [address] Network Architect Family Medicine 06/07/24 07/04/24 Juanita Luong PA-C [address] [place] [address] Network Architect Family Medicine 07/11/24 07/25/24 Awa Sanchez PA-C [facility] [place] [phone] Network Architect Internal Medicine 09/03/24 documented as of this encounter
--- OUTSIDE RECORDS SUMMARY | 2024-09-09 00:45 | XMS_ITS | Encounter Summary ---
Author Organization [facility] Address [address] [place], [place] [id number] Care Team Providers Care Bench Scientist Name Role Phone Nate Joyce DO Unavailable [phone] Mariam Cruz MD Primary Care Provider Chioma Jara RN Unavailable [phone] Basim Cvaazos Primary Care Provider Unavailabl e Pcp, No FINANCIAL AID ADMINISTRATOR Primary Care Provider Unavailabl e Anastasia Ruiz DO Primary Care Provider Basim White MD Primary Care Provider [phone] Paulie Sandra MD Unavailable Paulie Sandra MD Unavailable Teagan Henriquez RN Unavailable [employer] K[employer] FINANCIAL AID ADMINISTRATOR.VENEER REDRIER Unavailable Leeanne Balderas FINANCIAL AID ADMINISTRATOR.VENEER REDRIER Unavailable Juanita Luong PA-C Unavailable Rubi Rodriguez FINANCIAL AID ADMINISTRATOR.VENEER REDRIER Unavailable Christiana Sims PA-C Unavailable Tami Vazquez PA-C Unavailable [phone] Juanita Luong PA-C Unavailable Awa Sanchez PA-C Unavailable Source Comments In the event this information is protected by the Federal Confidentiality of Alcohol and Drug AbusePatient Records regulations: The Federal rules restrict any use of the information to criminally investigate or prosecute any alcohol or drug abuse patient.[facility] Encounter Details Date Type Department Care Team (Late st Contact Info) Description 05/14/2013 Patient Msg Medical Records [address] [place] [address] Provider, Ccf Insulin doses Social History Tobacco Use Types Packs/Day Years [...] 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 on file Not on file documented as of this encounter Plan of Treatment Upcoming Encounters Date Type Department Care Team (Latest Contact Info) Description 09/24/2024 6:00 PM EDT [facility] Family Medicine [place] [address] [place] [address] Basim White MD [address] [place] [address] 3 month follow up 11/28/2024 9:40 AM EDT [facility] Endocrinology [place] [address] [place] [address] [place] [address] [address] Type one diabetes pump and cgm follow up 12/20/2024 4:00 PM EDT [address] [address] Christiana Sims PA-C [address] [place] [address] 6 Month follow up and yearly physical 03/04/2025 5:20 PM EST Office Visit [address] [address] Basim White MD [address] [place] [address] 12 month follow up documented as of this encounter Visit Diagnoses Not on filedocumented in this encounter Additional Health Concerns Infection Onset Date Last Indicated Resolved Time COVID-19 Rule-Out 03/22/2020 03/22/2020 03/23/2020 7:16 PM EST COVID-19 Confirmed 02/26/2021 02/26/2021 8:51 PM EST documented as of this encounter Care Teams Bench Scientist Relationship Specialty Start Date End Date Mariam Cruz MD [address] [place] [address] PCP - General Family Medicine 02/09/13 03/08/16 Basim Cavazos PCP - General 03/09/16 04/14/16 PcpKarmen APRN PCP - General 04/15/16 06/09/16 [place] [address] [place] [address] PCP - General Family Medicine 06/10/16 08/08/17 Baism White MD [address] [place] [address] PCP - General Family Medicine 08/09/17 Nate Joyce DO Engine Inspector 02/09/13 Chioma Jara, RN [address] [place] [address] Specialty Strap Folding Machine Operator Endocrinology 06/08/13 04/04/16 Paulie Sandra MD [address] [facility] [address] [place] [address] Primary Staff Physician Cardiology 07/04/1807/04 Paulie Sandra MD [address] [facility] [address] [place] [address] Primary Staff Physician Cardiology 07/04/18 Teagan Henriquez, JIE [address] [place], [place] [address] Primary Care Maxillofacial Surgeon Internal Medicine 06/22/23 07/21/23 Pascale Kc, FINANCIAL AID ADMINISTRATOR.VENEER REDRIER [address] [place] [address] [facility] 03/26/24 07/04/24 Leeanne Balderas, FINANCIAL AID ADMINISTRATOR.VENEER REDRIER [address] [place] [address] Foreclosure Clerk Family Medicine 03/26/24 07/04/24 Juanita Luong PA-C [address] [place] [address] [facility] 03/26/24 07/04/24 Rubi Rodriguez, FINANCIAL AID ADMINISTRATOR.VENEER REDRIER [address] [place] [address] Foreclosure Clerk Family Medicine 03/26/24 07/04/24 Christiana Sims PA-C [address] [place] [address] Foreclosure Clerk Family Medicine 03/26/24 Tami Vazquez PA-C [address] [place] [address] Foreclosure Clerk Family Medicine 06/07/24 07/04/24 Juanita Luong PA-C [address] [place] [address] Foreclosure Clerk Family Medicine 07/11/24 07/25/24 Awa Sanchez PA-C [address] [place] [address] Foreclosure Clerk Internal Medicine 09/03/24 documented as of this encounter
--- OUTSIDE RECORDS SUMMARY | 2024-09-09 00:45 | XMS_ITS | Encounter Summary ---
Author Organization [facility] Address [address] [place], [place] [address] Care Team Providers Care Curator Of Education Name Role Phone IsiahNate greenfield Unavailable [phone] Anastasia Ruiz DO Primary Care Provider Basim White MD Primary Care Provider [phone] Paulie Sandra MD Unavailable Paulie Sandra MD Unavailable Teagan Henriquez RN Unavailable [employer] K[employer] WATER TRUCK DRIVER.MARINE ELECTRICIAN HELPER Unavailable Leeanne Balderas WATER TRUCK DRIVER.MARINE ELECTRICIAN HELPER Unavailable [phone] Juanita uLong PA-C Unavailable Rubi Rodriguez WATER TRUCK DRIVER.MARINE ELECTRICIAN HELPER Unavailable Christiana Sims PA-C Unavailable Tami Vazquez PA-C Unavailable [phone] Juanita Luong PA-C Unavailable Awa Sanchez PA-C Unavailable Source Comments In the event this information is protected by the Federal Confidentiality of Alcohol and Drug AbusePatient Records regulations: The Federal rules restrict any use of the information to criminally investigate or prosecute any alcohol or drug abuse patient.[facility] Encounter Details Date Type Department Care Team (Late st Contact Info) Description 11/26/2016 Get Medical Advice Family Medicine [address] [facility] [place] [address] Anastasia Ruiz DO [address] [place] [address] RE: Medication Question (Not Renewal) Social History [...] 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 Answer Date of Assessment Author No 04/04/2016 7:03 PM Rubi Almanzar (Rn), RN * Are you blind or do you have serious difficulty seeing, even when wearing glasses? Answer Date of Assessment Author No 04/04/2016 7:03 PM Rubi Almanzar (Rn), RN * Do you have serious difficulty walking or climbing stairs? Answer Date of Assessment Author No 04/04/2016 7:03 PM Rubi Bird (Rn), RN * Do you have difficulty dressing or bathing? Answer Date of Assessment Author No 04/04/2016 7:03 PM Rubi Almanzar (Rn), RN * Because of a physical, mental, or emotional condition, do you have difficulty doing errands alone such as visiting a doctor's office or shopping? Answer Date of Assessment Author No 04/04/2016 7:03 PM Rubi Almanzar (Rn), RN documented as of this encounter Mental Status * Because of a physical, mental, or emotional condition, do you have serious difficulty concentrating, remembering, or making decisions? Answer Entry Date Author No 04/04/2016 7:03 PM Rubi Almanzar (Rn), RN documented in this encounter Plan of Treatment Upcoming Encounters Date Type Department Care Team (Latest Contact Info) Description 09/24/2024 6:00 PM EDT [address] [address] Basim White MD [address] [place] [address] 3 month follow up 11/28/2024 9:40 AM EDT [facility] Endocrinology [place] [address] [place] [address] [place] [address] [address] Type one diabetes pump and cgm follow up 12/20/2024 4:00 PM EDT [address] [address] Christiana Sims PA-C [address] [place] [address] 6 Month follow up and yearly physical 03/04/2025 5:20 PM EST Office Visit [address] [address] Basim White MD [address] [place] [address] 12 month follow up documented as of [...] documented as of this encounter Care Teams Curator Of Education Relationship Specialty Start [place] [address] [place], [place] [id number] PCP - General Family Medicine 06/10/16 08/08/17 Basim White MD [address] [place] [address] PCP - General Family Medicine 08/09/17 Nate Joyce DO Steam And Gas Turbine Assembler 02/09/13 Paulie Sandra MD [address] [facility] [address] [place] [address] Primary Staff Physician Cardiology 07/04/1807/04 Paulie Sandra MD [address] [facility] [address] [place] [address] Primary Staff Physician Cardiology 07/04/18 Teagan Hneriquez, JIE [address] [place], [place] [address] Primary Care Medical Assistant Prn Internal Medicine 06/22/23 07/21/23 Pascale Kc, WATER TRUCK DRIVER.MARINE ELECTRICIAN HELPER [address] [place] [address] Zig Zag Stitcher Family [facility] 03/26/24 07/04/24 Leeanne Balderas, WATER TRUCK DRIVER.MARINE ELECTRICIAN HELPER [address] [place] [address] Zig Zag Stitcher Family Medicine 03/26/24 07/04/24 Juanita Luong PA-C [address] [place] [address] Zig Zag Stitcher Family Medicine 03/26/24 07/04/24 Rubi Rodriguez, WATER TRUCK DRIVER.MARINE ELECTRICIAN HELPER [address] [place] [address] Zig Zag Stitcher Family [facility] 03/26/24 07/04/24 Christiana Sims PA-C [address] [place] [address] Zig Zag Stitcher Family Medicine 03/26/24 Tami Vazquez PA-C [address] [place] [address] Zig Zag Stitcher Family Medicine 06/07/24 07/04/24 Juanita Luong PA-C [address] [place] [address] Zig Zag Stitcher Family Medicine 07/11/24 07/25/24 Awa Sanchez PA-C [address] [place] [address] Zig Zag Stitcher Internal Medicine 09/03/24 documented as of this encounter
--- OUTSIDE RECORDS SUMMARY | 2024-09-09 00:45 | XMS_ITS | Encounter Summary ---
Author Organization [facility] Address [address] [place], [place] [address] Care Team Providers Care Gsa Coordinator Name Role Phone IsiahNate greenfield Cecelia OSBORNE Unavailable [phone] Basim White MD Primary Care Provider Paulie Sandra MD Unavailable Pascale Kc MERCHANT TAILOR.AUTOMOBILE BRAKE BONDER Unavailable Leeanne Balderas MERCHANT TAILOR.AUTOMOBILE BRAKE BONDER Unavailable [phone] Juanita Luong PA-C Unavailable Rubi Rodriguez MERCHANT TAILOR.AUTOMOBILE BRAKE BONDER Unavailable Chrsitiana Sims PA-C Unavailable Tami Vazquez PA-C Unavailable [phone] Juanita Luong PA-C Unavailable Awa Sanchez PA-C Unavailable Source Comments In the event this information is protected by the Federal Confidentiality of Alcohol and Drug AbusePatient Records regulations: The Federal rules restrict any use of the information to criminally investigate or prosecute any alcohol or drug abuse patient.[facility] Encounter Details Date Type Department Care Team (Late st Contact Info) Description 04/20/2024 Patient Msg Neurology [address] [place] [address] Provider, Ccf Please Confirm Your Schedule Study on 04/25/24 Social History Tobacco Use Types Packs/Day Years Used Date Smoking Tobacco: Never Smokeless Tobacco: Never Alcohol Use Standard Drinks/Week Comments Yes 0 (1 standard drink = 0.6 oz pur e alcohol) rarely [facility] Utilities Answer Date Recorded In the past 12 months has [employer] electric, gas, oil, or water company threatened [...] Never 05/20/2023 How often do you attend [facility] ch or samaritan services? More than 4 times per year 05/20/2023 Do you belong to any clubs o r organizations such as protestant groups, unions, fraternal or athletic groups, or [...] 06/20/2023 PHQ-2 Answer Date Recorded PHQ-2 score 6 03/26/2024 [facility] [employer] Academy of Occupat ional Health - Occupational Stress [...] slept in a fpc (including now)? No 06/20/2023 Area Deprivation Index Answer Date Sergio rded National Score (1-100), lower number is lower ri sk 79 08/26/2022 State Score (1-10), lower number is lower risk 7 08/26/2022 Data from: https://www.neighborhoodatlas.medicine.[facility].edu/. Last address used for calculation [address] [...] Industry Job Start Date Job End Date [employer] Not on file Not on file Not [...] Contact Info) Description 09/24/2024 6:00 PM EDT [facility] Family Medicine [place] [address] [place] [address] Basim White MD [address] [place] [address] 3 month follow up 11/28/2024 9:40 AM EDT [facility] Endocrinology [address] [place] [address] [place] [address] [facility] [address] [place] [address] Type one diabetes pump and cgm follow up 12/20/2024 4:00 PM EDT [facility] [address] [place] [address] Christiana Sims PA-C [address] [place] [address] 6 Month follow up and yearly physical 03/04/2025 5:20 PM EST Office Visit [address] [address] Basim White MD [address] [place] [address] 12 month follow up documented as of this encounter Goals Goal Patient Goal Type Associated Problems Recent Progress Patient-Stated? Author Blood Pressure < 130/80 Blood Pressure 108/64(08/2023 7:48 AM EST) No Shena Ctoo, JIE Care Coordination - Diabetes Care Coordination Counseling [...] on filedocumented in this encounter Care Teams Gsa Coordinator Relationship Specialty Start Date End Date Basim White MD [address] [place] [address] PCP - General Family Medicine 08/09/17 Nate Joyce DO Admissions Assistant 02/09/13 Paulie Sandra MD [address] [address] Primary Staff Physician Cardiology 07/04/18 Pascale Kc APRN.AUTOMOBILE BRAKE BONDER [address] [place] [address] Security Intern Family [facility] 03/26/24 07/04/24 Leeanne Balderas, MERCHANT TAILOR.AUTOMOBILE BRAKE BONDER [address] [place] [address] Security Intern Family Medicine 03/26/24 07/04/24 Juanita Loung PA-C [address] [place] [address] [facility] Family [facility] 03/26/24 07/04/24 Rubi Rodriguez, ISABELLA.AUTOMOBILE BRAKE BONDER [address] [place] [address] Security Intern Family Medicine 03/26/24 07/04/24 Christiana Sims PA-C [address] [place] [address] Security Intern Family Medicine 03/26/24 Tami Vazquez PA-C [address] [place] [address] Security Intern Family Medicine 06/07/24 07/04/24 Juanita Luong PA-C [address] [place] [address] Security Intern Family Medicine 07/11/24 07/25/24 Awa Sanchez PA-C [address] [place] [address] Security Intern Internal Medicine 09/03/24 documented as of this encounter
--- OUTSIDE RECORDS SUMMARY | 2024-09-09 00:45 | XMS_ITS | Encounter Summary ---
Author Organization [facility] Address [address] [place], [place] [address] Care Team Providers Care Machine Maintenance Repairer Name Role Phone IsiahNate greenfield Cecelia OSBORNE Unavailable [phone] Basim White MD Primary Care Provider [phone] Paulie Sandra MD Unavailable Pascale Kc STUFFING MACHINE OPERATOR.ASSISTANT STORE DIRECTOR Unavailable Leeanne Balderas STUFFING MACHINE OPERATOR.ASSISTANT STORE DIRECTOR Unavailable [phone] Juanita Luong PA-C Unavailable Rubi Rodriguez STUFFING MACHINE OPERATOR.ASSISTANT STORE DIRECTOR Unavailable Christiana Sims PA-C Unavailable Tami Vazquez PA-C Unavailable [phone] Juanita Luong PA-C Unavailable Awa Sanchez PA-C Unavailable Source Comments In the event this information is protected by the Federal Confidentiality of Alcohol and Drug AbusePatient Records regulations: The Federal rules restrict any use of the information to criminally investigate or prosecute any alcohol or drug abuse patient.[facility] Encounter Details Date Type Department Care Team (Late st Contact Info) Description 09/07/2023 Patient Msg Nuclear Medicine [address] [facility] [address] Provider, Ccf Instructions for NM STress testing on 09/13/23at 10:00 am Social History Tobacco Use Types Packs/Day Years Used Date Smoking Tobacco: Never Smokeless Tobacco: Never Alcohol Use Standard Drinks/Week Comments Yes 0 (1 standard drink = 0.6 oz pur e alcohol) rarely [facility] Utilities Answer Date Recorded In the past 12 months has [employer] electric, gas, oil, or water company [...] Never 05/20/2023 How often do you attend [facility] ch or christianity services? More than 4 times per year [...] PHQ-2 Answer Date Recorded PHQ-2 score 6 09/03/2023 [facility] of Occupat ional Health - Occupational Stress [...] slept in a senior care (including now)? No 06/20/2023 Area Deprivation Index Answer Date Sergio rded National Score (1-100), lower number is lower ri sk 79 08/26/2022 State Score (1-10), lower number is lower risk 7 08/26/2022 Data from: https://www.neighborhoodatlas.medicine.[facility].edu/. 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 Not [...] Assessment Author No 01/25/2017 3:55 PM EDT Sa stephen Ireland RN * Because of a physical, [...] Contact Info) Description 09/24/2024 6:00 PM EDT [facility] Family Medicine [place] [address] [place] [address] Basim White MD [address] [place] [address] 3 month follow up 11/28/2024 9:40 AM EDT [facility] Endocrinology [place] [address] [place] [address] [place] [address] [facility] [address] [place] [address] Type one diabetes pump and cgm follow up 12/20/2024 4:00 PM EDT [facility] Medicine [address] [address] Christiana Sims PA-C [address] [place] [address] 6 Month follow up and yearly physical 03/04/2025 5:20 PM EST Office Visit [address] [address] Basim White MD [address] [place] [address] 12 month follow up documented as of this encounter Goals Goal Patient Goal Type Associated Problems Recent Progress Patient-Stated? Author Blood Pressure < 130/80 Blood Pressure 108/64(08/2023 7:48 AM EST) No Shena Coto, JIE Care Coordination - Diabetes Care Coordination [...] on filedocumented in this encounter Care Teams Machine Maintenance Repairer Relationship Specialty Start Date End Date Basim White MD [address] [place] [address] PCP - General Family Medicine 08/09/17 Nate Joyce DO Floor Person 02/09/13 Paulie Sandra MD [address] [phone] Primary Staff Physician Cardiology 07/04/18 Pascale Kc APRN.ASSISTANT STORE DIRECTOR [address] [place] [address] [facility] 03/26/[facility] 07/04/24 Leeanne Balderas, ISABELLA.ASSISTANT STORE DIRECTOR [address] [place] [address] [facility] Family Medicine 03/26/24 07/04/24 Juanita Luong PA-C [address] [place] [address] [facility] 03/26/24 07/04/24 Rubi Rodriguez, ISABELLA.ASSISTANT STORE DIRECTOR [address] [place] [address] Utilization Reviewer Family Medicine 03/26/24 07/04/24 Christiana Sims PA-C [address] [place] [address] Utilization Reviewer Family Medicine 03/26/24 Tami Vazquez PA-C [address] [place] [address] Utilization Reviewer Family Medicine 06/07/24 07/04/24 Juanita Luong PA-C [address] [place] [address] Utilization Reviewer Family Medicine 07/11/24 07/25/24 Awa Sanchez PA-C [address] [place] [address] Utilization Reviewer Internal Medicine 09/03/24 documented as of this encounter
--- OUTSIDE RECORDS SUMMARY | 2024-09-09 00:45 | XMS_ITS | Encounter Summary ---
Author Organization [facility] Address [address] [place], [place] [address] Care Team Providers Care Diesel Technician Name Role Phone IsiahNate greenfield Cecelia OSBORNE Unavailable [phone] Basim White MD Primary Care Provider [phone] Paulie Sandra MD Unavailable Pascale Kc STATIONARY BOILER FIREMAN.ENVIRONMENT FRIENDLY LANDSCAPE DESIGNER Unavailable Leeanne Balderas STATIONARY BOILER FIREMAN.ENVIRONMENT FRIENDLY LANDSCAPE DESIGNER Unavailable [phone] Juanita Luong PA-C Unavailable Rubi Rodriguez STATIONARY BOILER FIREMAN.ENVIRONMENT FRIENDLY LANDSCAPE DESIGNER Unavailable Christiana Sims PA-C Unavailable Tami Vazquez [...] Care Team (Late st Contact Info) Description 09/05/2023 Patient Msg Endocrinology [address] [place] [address] Provider, Ccf Tandem Insulin Pump Assistance Social History Tobacco Use Types Packs/Day Years Used Date Smoking Tobacco: Never Smokeless Tobacco: Never Alcohol Use Standard Drinks/Week Comments Yes 0 (1 standard drink = 0.6 oz pur e alcohol) rarely [facility] Utilities Answer Date Recorded In the past [...] Never 05/20/2023 How often do you attend [facility] ch or church services? More than 4 times per year 05/20/2023 Do you belong to any clubs o r organizations such as worship groups, unions, fraternal or athletic groups, or [...] Answer Date Recorded PHQ-2 score 6 09/03/2023 [facility] [place] of Occupat ional Health - Occupational Stress [...] place to sleep or slept in a nursing home (including now)? No 06/20/2023 Area Deprivation Index Answer Date Sergio rded National Score (1-100), lower number is lower ri sk 79 08/26/2022 State Score (1-10), lower number is lower risk 7 08/26/2022 Data from: https://www.neighborhoodatlas.medicine.[facility].edu/. Last address used for calculation [address] [...] Industry Job Start Date Job End Date [place] Not on file Not on file Not [...] Contact Info) Description 09/24/2024 6:00 PM EDT [facility] Family Medicine [place] [address] [place], [place] [address] Basim White MD [address] [place] [address] 3 month follow up 11/28/2024 9:40 AM EDT [facility] Endocrinology [address] [place] [address] [address] [place] [address] [address] Type one diabetes pump and cgm follow up 12/20/2024 4:00 PM EDT [facility] [address] [place] [address] Christiana Sims PA-C 450 [place] [address] 6 Month follow up and yearly physical 03/04/2025 5:20 PM EST Office Visit [address] [address] Basim White MD [address] [place] [address] 12 month follow up documented as of [...] on filedocumented in this encounter Care Teams Diesel Technician Relationship Specialty Start Date End Date Basim White MD [address] [place] [address] PCP - General Family Medicine 08/09/17 Nate Joyce DO Principal Programmer 02/09/13 Paulie Sandra MD [address] [phone] Primary Staff Physician Cardiology 07/04/18 Pascale Kc STATIONARY BOILER FIREMAN.ENVIRONMENT FRIENDLY LANDSCAPE DESIGNER [address] [place] [address] [facility] 03/26/24 07/04/24 Leeanne Balderas, STATIONARY BOILER FIREMAN.ENVIRONMENT FRIENDLY LANDSCAPE DESIGNER [address] [place] [address] [facility] Family [facility] 03/26/24 07/04/24 Juanita Luong PA-C [address] [place] [address] [facility] 03/26/24 07/04/24 Rubi Rodriguez, STATIONARY BOILER FIREMAN.ENVIRONMENT FRIENDLY LANDSCAPE DESIGNER [address] [place] [address] [facility] 03/26/24 07/04/24 Christiana Sims PA-C [address] [place] [address] [facility] 03/26/24 Tami Vazquez PA-C [address] [place] [address] [facility] 06/07/24 07/04/24 Juanita Luong PA-C [address] [place] [address] [facility] 07/11/24 07/25/24 Awa Sanchez PA-C [address] [place] [address] [facility] Internal Medicine 09/03/24 documented as of this encounter
--- OUTSIDE RECORDS SUMMARY | 2024-09-09 00:45 | XMS_ITS | Encounter Summary ---
Author Organization [facility] Address [address] [place], [place] [address] Care Team Providers Care Growth Hacker Name Role Phone IsiahNate greenfield Unavailable [phone] Anastasia Ruiz DO Primary Care Provider Basim White MD Primary Care Provider [phone] Paulie Sandra MD Unavailable Paulie Sandra MD Unavailable Teagan Henriquez RN Unavailable P[employer] K[employer] RENEWABLE ENERGY CONSULTANT.AIRPLANE FIRST OFFICER Unavailable Leeanne Balderas RENEWABLE ENERGY CONSULTANT.AIRPLANE FIRST OFFICER Unavailable [phone] Juanita Luong PA-C Unavailable Rubi Rodriguez RENEWABLE ENERGY CONSULTANT.AIRPLANE FIRST OFFICER Unavailable Christiana Sims PA-C Unavailable Tami Vazquez PA-C Unavailable [phone] Juanita Luong PA-C Unavailable Awa Sanchez PA-C Unavailable Source Comments In the event this information is protected by the Federal Confidentiality of Alcohol and Drug AbusePatient Records regulations: The Federal rules restrict any use of the information to criminally investigate or prosecute any alcohol or drug abuse patient.[facility] Encounter Details Date Type Department Care Team (Latest Contact Info) Description 01/20/2017 Patient Msg Reproductive Endocrinology Infertility [address] [address] Emily Daly, AIRPLANE FIRST OFFICER [address] [facility], Angelica Ruth, [address] [place] [address] Jacques: Social History Tobacco Use Types Packs/Day Years [...] Industry Job Start Date Job End Date [employer] Not on file Not on file Not [...] Almanzar (Rn), RN * Do you have difficulty [...] Contact Info) Description 09/24/2024 6:00 PM EDT [address] [address] Basim White MD [address] [place] [address] 3 month follow up 11/28/2024 9:40 AM EDT [facility] Endocrinology [place] [address] [place] [address] [place] [address] [address] Type one diabetes pump and cgm follow up 12/20/2024 4:[address] PM [address] [address] Christiana Sims PA-C [address] [place] [address] 6 Month follow up and yearly physical 03/04/2025 5:20 PM EST Office Visit [address] [address] Basim White MD [address] [place] [address] 12 month follow up documented as of [...] documented as of this encounter Care Teams Growth Hacker Relationship Specialty Start [place] [address] [place], [place] [id number] PCP - General Family Medicine 06/10/16 08/08/17 Basim White MD [address] [place] [address] PCP - General Family Medicine 08/09/17 Nate Joyce DO Lead Data Architect 02/09/13 Paulie Sandra MD [address] [facility] [address] [place] [phone] Primary Staff Physician Cardiology 07/04/1807/04 Paulie Sandra MD [address] [facility] [address] [place] [address] Primary Staff Physician Cardiology 07/04/18 Teagan Henriquez, RN [address] [place] [address] Primary Care Dishing Machine Operator Internal Medicine 06/22/23 07/21/23 Pascale Kc RENEWABLE ENERGY CONSULTANT.AIRPLANE FIRST OFFICER [address] [place] [address] Historical Archeologist Family [facility] 03/26/24 07/04/24 Leeanne Balderas, ISABELLA.AIRPLANE FIRST OFFICER [address] [place] [address] Historical Archeologist Family Medicine 03/26/24 07/04/24 Juanita Luong PA-C [address] [place] [address] Historical Archeologist Family Medicine 03/26/24 07/04/24 Rubi Rodriguez, ISABELLA.AIRPLANE FIRST OFFICER [address] [place] [address] Historical Archeologist Family Medicine 03/26/24 07/04/24 Christiana Sims PA-C [address] [place] [address] Historical Archeologist Family Medicine 03/26/24 Tami Vazquez PA-C [address] [place] [address] Historical Archeologist Family Medicine 06/07/24 07/04/24 Juanita Luong PA-C [address] [place] [address] Historical Archeologist Family Medicine 07/11/24 07/25/24 Awa Sanchez PA-C [address] [place] [address] Historical Archeologist Internal Medicine 09/03/24 documented as of this encounter
--- OUTSIDE RECORDS SUMMARY | 2024-09-09 00:45 | XMS_ITS | Encounter Summary ---
Author Organization [facility] Address [address] [place], [place] [address] Care Team Providers Care Plant Science Professor Name Role Phone IsiahNate greenfield Cecelia OSBORNE Unavailable [phone] Basim White MD Primary Care Provider Paulie Sandra MD Unavailable [employer] K[employer] ASSEMBLY LINE ROBOT OPERATOR.RETAIL LEADER Unavailable Leeanne Balderas ASSEMBLY LINE ROBOT OPERATOR.RETAIL LEADER Unavailable [phone] Juanita Luong PA-C Unavailable Rubi Rodriguez ASSEMBLY LINE ROBOT OPERATOR.RETAIL LEADER Unavailable Christiana Sims PA-C Unavailable Tami Vazquez PA-C Unavailable [phone] Juanita Luong PA-C Unavailable Awa Sanchez PA-C Unavailable Source Comments In the event this information is protected by the Federal Confidentiality of Alcohol and Drug AbusePatient Records regulations: The Federal rules restrict any use of the information to criminally investigate or prosecute any alcohol or drug abuse patient.[facility] Encounter Details Date Type Department Care Team (Late st Contact Info) Description 04/05/2024 Patient Msg Orthopaedics [address] [facility] [place] [address] Provider, Ccf Wheelchair Social History Tobacco Use Types Packs/Day Years Used Date Smoking Tobacco: Never Smokeless Tobacco: Never Alcohol Use Standard Drinks/Week Comments Yes 0 (1 standard drink = 0.6 oz pur e alcohol) rarely [facility] Utilities Answer Date Recorded In the [...] Never 05/20/2023 How often do you attend [facility] or quaker services? More than 4 times [...] Answer Date Recorded PHQ-2 score 6 03/26/2024 [facility] [place] of Occupat ional Health - Occupational Stress [...] place to sleep or slept in a residential (including now)? No 06/20/2023 Area Deprivation Index Answer Date Sergio rded National Score (1-100), lower number is lower ri sk 79 08/26/2022 State Score (1-10), lower number is lower risk 7 08/26/2022 Data from: https://www.neighborhoodatlas.medicine.[facility].edu/. Last address used for calculation [address] [...] Industry Job Start Date Job End Date [employer] Not on file Not on file Not [...] Contact Info) Description 09/24/2024 6:00 PM EDT [facility] Family Medicine [place] [address] [place], [place] [address] Basim White MD [address] [place] [address] 3 month follow up 11/28/2024 9:40 AM EDT [facility] Endocrinology [address] [address] [place] [address] [place] [place] [address] Type one diabetes pump and cgm follow up 12/20/2024 4:00 PM EDT [facility] [address] [place] [address] Christiana Sims PA-C 450 [place] [address] 6 Month follow up and yearly physical 03/04/2025 5:20 PM EST Office Visit [facility] [address] [place] [address] Basim White MD 450 [place] [address] 12 month follow up documented as of [...] on filedocumented in this encounter Care Teams Plant Science Professor Relationship Specialty Start Date End Date Basim White MD [address] [place] [address] PCP - General Family Medicine 08/09/17 Nate Joyce DO Environmental Permitting Specialist 02/09/13 Paulie Sandra MD [address] [phone] Primary Staff Physician Cardiology 07/04/18 Pascale Kc, ASSEMBLY LINE ROBOT OPERATOR.RETAIL LEADER [address] [place] [address] [facility] 03/26/24 07/04/24 Leeanne Balderas, ASSEMBLY LINE ROBOT OPERATOR.RETAIL LEADER [address] [place] [address] [facility] 03/26/24 07/04/24 Juanita Luong PA-C [address] [place] [address] [facility] 03/26/24 07/04/24 Rubi Rodriguez, ASSEMBLY LINE ROBOT OPERATOR.RETAIL LEADER [address] [place] [address] Workers Compensation Coordinator Family Medicine 03/26/24 07/04/24 Christiana Sims PA-C [address] [place] [address] Workers Compensation Coordinator Family Medicine 03/26/24 Tami Vazquez PA-C [address] [place] [address] Workers Compensation Coordinator Family Medicine 06/07/24 07/04/24 Juanita Luong PA-C [address] [place] [address] Workers Compensation Coordinator Family Medicine 07/11/24 07/25/24 Awa Sanchez PA-C [address] [place] [address] Workers Compensation Coordinator Internal Medicine 09/03/24 documented as of this encounter
--- OUTSIDE RECORDS SUMMARY | 2024-09-09 00:45 | XMS_ITS | Encounter Summary ---
Author Organization [facility] Address [address] [place], [place] [address] Care Team Providers Care Epic Application Coordinator Name Role Phone IsiahNate greenfield Cecelia OSBORNE Unavailable [phone] Basim White MD Primary Care Provider [phone] Paulie Sandra MD Unavailable [phone] Pascale Kc UNIFORM CAP OPERATOR.JOURNEYMAN TOOL AND DIE MAKER Unavailable Leeanne Balderas UNIFORM CAP OPERATOR.JOURNEYMAN TOOL AND DIE MAKER Unavailable [phone] Juanita Luong PA-C Unavailable Rubi Rodriguez UNIFORM CAP OPERATOR.JOURNEYMAN TOOL AND DIE MAKER Unavailable Christiana Sims PA-C Unavailable Tami Vazquez PA-C Unavailable [phone] Juanita Luong PA-C Unavailable Awa Sanchez PA-C Unavailable Source Comments In the event this information is protected by the Federal Confidentiality of Alcohol and Drug AbusePatient Records regulations: The Federal rules restrict any use of the information to criminally investigate or prosecute any alcohol or drug abuse patient.[facility] Encounter Details Date Type Department Care Team (Late st Contact Info) Description 04/04/2024 Patient Msg Orthopaedics [address] [facility] [place] [address] Provider, Ccf WHEELCHAIR EVAL Social History Tobacco Use Types Packs/Day Years Used Date Smoking Tobacco: Never Smokeless Tobacco: Never Alcohol Use Standard Drinks/Week Comments Yes 0 (1 standard drink = 0.6 oz pur e alcohol) rarely [facility] Utilities Answer Date Recorded In the past [...] often do you attend chur ch or protestant services? More than 4 times per year 05/20/2023 Do you belong to any clubs o r organizations such as faith groups, unions, fraternal or athletic groups, or [...] Answer Date Recorded PHQ-2 score 6 03/26/2024 [facility] [place] of Occupat ional Health - Occupational Stress [...] place to sleep or slept in a detention (including now)? No 06/20/2023 Area Deprivation Index Answer Date Sergio rded National Score (1-100), lower number is lower ri sk 79 08/26/2022 State Score (1-10), lower number is lower risk 7 08/26/2022 Data from: https://www.neighborhoodatlas.medicine.[place].edu/. Last address used for calculation [address] [...] Industry Job Start Date Job End Date [employer] Not on file Not on file Not [...] 3:55 PM EDT Sa stephen Ireland RN documented as of this encounter Mental Status * Because of a physical, mental, or emotional condition, do you have serious difficulty concentrating, remembering, or making decisions? Answer Entry Date Author No 01/25/2017 3:55 PM EDT Osmany Ireland RN documented in this encounter Plan of Treatment Upcoming Encounters Date Type Department Care Team (Latest Contact Info) Description 09/24/2024 6:[address] [facility] Family Medicine [place] [address] [place] [address] Basim White MD 450 [place] [address] 3 month follow up 11/28/2024 9:[address] [facility] Endocrinology [address] [address] [place] [address] [address] Type one diabetes pump and cgm follow up 12/20/2024 4:00 PM EDT [facility] 450 [place] [address] Christiana Sims PA-C 450 [place] [address] 6 Month follow up and yearly physical 03/04/2025 5:20 PM EST Office Visit [facility] 450 [place] [address] Basim White MD 450 [place] [address] 12 month follow up documented as of [...] on filedocumented in this encounter Care Teams Epic Application Coordinator Relationship Specialty Start Date End Date Basim White MD [address] [place] [address] PCP - General Family Medicine 08/09/17 Nate Joyce DO Mortgage Coordinator 02/09/13 Paulie Sandra MD [address] [phone] Primary Staff Physician Cardiology 07/04/18 Pascale Kc UNIFORM CAP OPERATOR.JOURNEYMAN TOOL AND DIE MAKER [address] [place] [address] [facility] 03/26/24 07/04/24 Leeanne Balderas, UNIFORM CAP OPERATOR.JOURNEYMAN TOOL AND DIE MAKER [address] [place] [address] [facility] Family [facility] 03/26/24 07/04/24 Juanita Luong PA-C [address] [place] [address] [facility] 03/26/24 07/04/24 Rubi Rodriguez, UNIFORM CAP OPERATOR.JOURNEYMAN TOOL AND DIE MAKER [address] [place] [address] Adjunct Psychology Faculty Member Family Medicine 03/26/24 07/04/24 Christiana Sims PA-C [address] [place] [address] Adjunct Psychology Faculty Member Family Medicine 03/26/24 Tami Vazquez PA-C [address] [place] [address] Adjunct Psychology Faculty Member Family Medicine 06/07/24 07/04/24 Juanita Luong PA-C [address] [place] [address] Adjunct Psychology Faculty Member Family Medicine 07/11/24 07/25/24 Awa Sanchez PA-C [address] [place] [address] Adjunct Psychology Faculty Member Internal Medicine 09/03/24 documented as of this encounter
--- OUTSIDE RECORDS SUMMARY | 2024-09-09 00:45 | XMS_ITS | Encounter Summary ---
Author Organization [facility] Address [address] [place], [place] [address] Care Team Providers Care Cushion Builder Name Role Phone IsiahNate greenfield Unavailable [phone] Anastasia Ruiz DO Primary Care Provider Basim White MD Primary Care Provider [phone] Paulie Sandra MD Unavailable Paulie Sandra MD Unavailable Teagan Henriquez RN Unavailable Pascale Kc ENCHILADA MAKER.WATER TANKER DRIVER Unavailable Leeanne Balderas ENCHILADA MAKER.WATER TANKER DRIVER Unavailable [phone] Juanita Luong PA-C Unavailable Rubi Rodriguez ENCHILADA MAKER.WATER TANKER DRIVER Unavailable Christiana Sims PA-C Unavailable Tami Vazquez PA-C Unavailable [phone] Juanita Luong PA-C Unavailable Awa Sanchez PA-C Unavailable Source Comments In the event this information is protected by the Federal Confidentiality of Alcohol and Drug AbusePatient Records regulations: The Federal rules restrict any use of the information to criminally investigate or prosecute any alcohol or drug abuse patient.[facility] Encounter Details Date Type Department Care Team (Late st Contact Info) Description 11/29/2016 Patient Msg Rehab Medicine [address] [place] [address] [place] [address] [place] [address] RE: Appointment Cancellation Request Social History Tobacco [...] Job Start Date Job End Date [employer] Not on file Not on file Not [...] Contact Info) Description 09/24/2024 6:00 PM EDT [address] [address] Basim White MD [address] [place] [address] 3 month follow up 11/28/2024 9:40 AM EDT [facility] Endocrinology [place] [address] [place] [address] [place] [address] [address] Type one diabetes pump and cgm follow up 12/20/2024 4:00 PM EDT [address] [address] Christiana Sims PA-C [address] [place] [address] 6 Month follow up and yearly physical 03/04/2025 5:20 PM EST Office Visit [address] [address] Basim White MD [address] [place] [address] 12 month follow up documented as of [...] documented as of this encounter Care Teams Cushion Builder Relationship Specialty Start [place] [address] [place] [address] PCP - General Family Medicine 06/10/16 08/08/17 Basim White MD 450 [place] [address] PCP - General Family Medicine 08/09/17 Nate Joyce DO Application Designer 02/09/13 Paulie Sandra MD [address] [facility] [address] [place] [phone] Primary Staff Physician Cardiology 07/04/1807/04 Paulie Sandra MD [address] [facility] [address] [place] [address] Primary Staff Physician Cardiology 07/04/18 Teagan Henriquez, RN [address] [place], [place] [address] Primary Care Stock Patch Sawyer Internal Medicine 06/22/23 07/21/23 Pascale Kc, ENCHILADA MAKER.WATER TANKER DRIVER [address] [place] [address] [employer] Family Medicine 03/26/24 07/04/24 Leeanne Balderas, ENCHILADA MAKER.WATER TANKER DRIVER [address] [place] [address] [employer] Family Medicine 03/26/24 07/04/24 Juanita Luong PA-C [address] [place] [address] [employer] Family Medicine 03/26/24 07/04/24 Rubi Rodriguez, ENCHILADA MAKER.WATER TANKER DRIVER [address] [place] [address] [employer] Family Medicine 03/26/24 07/04/24 Christiana Sims PA-C [address] [place] [address] [employer] Family Medicine 03/26/24 Tami Vazquez PA-C [address] [place] [address] [employer] Family Medicine 06/07/24 07/04/24 Juanita Luong PA-C [address] [place] [address] Convex Grinder Family Medicine 07/11/24 07/25/24 Awa Sanchez PA-C [address] [place] [address] Convex Grinder Internal Medicine 09/03/24 documented as of this encounter
--- OUTSIDE RECORDS SUMMARY | 2024-09-09 00:45 | XMS_ITS | Encounter Summary ---
Author Organization [facility] Address [address] [place], [place] [address] Care Team Providers Care Stonemason Name Role Phone IsiahNate greenfield Cecelia OSBORNE Unavailable [phone] Basim White MD Primary Care Provider Paulie Sandra MD Unavailable [employer] K[employer] FAIRING WORKER.FEEDER OPERATOR Unavailable Leeanne Balderas FAIRING WORKER.FEEDER OPERATOR Unavailable [phone] Juanita Luong PA-C Unavailable Rubi Rodriguez FAIRING WORKER.FEEDER OPERATOR Unavailable Christiana Sims PA-C Unavailable Tami Vazquez PA-C Unavailable [phone] Juanita Luong PA-C Unavailable Awa Sanchez [...] Care Team (Late st Contact Info) Description 08/18/2023 Patient Msg Neurology [address] [place] [address] Provider, Ccf Virtual visit with Dr. Choudhary Social History Tobacco Use Types Packs/Day Years Used Date Smoking Tobacco: Never Smokeless Tobacco: Never Alcohol Use Standard Drinks/Week Comments Yes 0 (1 standard drink = 0.6 oz pur e alcohol) rarely [facility] Utilities Answer Date Recorded In the [...] Never 05/20/2023 How often do you attend [facility] or jew services? More than 4 times per year [...] Answer Date Recorded PHQ-2 score 4 06/25/2023 [facility] of Occupat ional Health - Occupational Stress [...] is lower risk 7 08/26/2022 Data from: https://www.neighborhoodatlas.medicine.[facility].edu/. 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 on file Not [...] Contact Info) Description 09/24/2024 6:00 PM EDT [facility] Family Medicine [place] [address] [place] [address] Basim White MD 450 [place] [address] 3 month follow up 11/28/2024 9:40 AM EDT [facility] Endocrinology [address] [address] [place] [address] [address] Type one diabetes pump and cgm follow up 12/20/2024 4:00 PM EDT [facility] 450 [place] [address] Christiana Sims PA-C 450 [place] [address] 6 Month follow up and yearly physical 03/04/2025 5:20 PM EST Office Visit [address] [address] Basim White MD [address] [place] [address] 12 month follow up documented as of [...] on filedocumented in this encounter Care Teams Stonemason Relationship Specialty Start Date End Date Basim White MD [address] [place] [address] PCP - General Family Medicine 08/09/17 Nate Joyce DO Shipsmith 02/09/13 Paulie Sandra MD [address] [phone] Primary Staff Physician Cardiology 07/04/18 Pascale Kc FAIRING WORKER.FEEDER OPERATOR [address] [place] [address] [facility] 03/26/24 07/04/24 Leeanne Balderas, FAIRING WORKER.FEEDER OPERATOR [address] [place] [address] [facility] Family [facility] 03/26/24 07/04/24 Juanita Luong PA-C [address] [place] [address] [facility] 03/26/24 07/04/24 Rubi Rodriguez, FAIRING WORKER.FEEDER OPERATOR [address] [place] [address] [facility]eteria Server Family Medicine 03/26/24 07/04/24 Christiana Sims PA-C [address] [place] [address] Cafeteria Server Family Medicine 03/26/24 Tami Vazquez PA-C [address] [place] [address] Cafeteria Server Family Medicine 06/07/24 07/04/24 Juanita Luong PA-C [address] [place] [address] Cafeteria Server Family Medicine 07/11/24 07/25/24 Awa Sanchez PA-C [address] [place] [address] Cafeteria Server Internal Medicine 09/03/24 documented as of this encounter
--- OUTSIDE RECORDS SUMMARY | 2024-09-09 00:45 | XMS_ITS | Encounter Summary ---
Author Organization [facility] Address [address] [place], [place] [id number] Care Team Providers Care Liner Installer Name Role Phone IsiahNate greenfield Cecelia OSBORNE Unavailable [phone] Basim White MD Primary Care Provider Paulie Sandra MD Unavailable Teagan Henriquez RN Unavailable [employer] PHOTO RETOUCHER.TALENT ENGINEER Unavailable Leeanne Balderas PHOTO RETOUCHER.TALENT ENGINEER Unavailable [phone] Juanita Luong PA-C Unavailable Rubi Rodriguez PHOTO RETOUCHER.TALENT ENGINEER Unavailable Christiana Sims PA-C Unavailable Tami Vazquez PA-C Unavailable [phone] Juanita Luong PA-C Unavailable Awa Sanchez PA-C Unavailable Source Comments In the event this information is protected by the Federal Confidentiality of Alcohol and Drug AbusePatient Records regulations: The Federal rules restrict any use of the information to criminally investigate or prosecute any alcohol or drug abuse patient.[facility] Encounter Details Date Type Department Care Team (Late st Contact Info) Description 12/12/2019 Get Medical Advice General Surgery [address] [place] [address] Dior Martinez, PHOTO RETOUCHER.SNOW REMOVER [address] [place] [address] RE: Visit Follow Up Question Social History [...] often do you attend chur ch or taoism services? More than 4 times per year [...] partner? 09/29/2019 PHQ-2 Answer Date Recorded PHQ-2 Score 6 12/15/2019 [facility] of Occupat ional Health - Occupational Stress [...] place to sleep or slept in a fdc (including now)? 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 No / Unsure 12/14/2019 3:21 PM EDT documented as of this [...] Contact Info) Description 09/24/2024 6:[address] PM [address]T [address] [address] Basim White MD [address] [place] [address] 3 month follow up 11/28/2024 9:40 AM EDT [facility] Endocrinology [place] [id number] [place] [address] [place] [address] [address] Type one diabetes pump and cgm follow up 12/20/2024 4:00 PM EDT [address] [address] Christiana Sims PA-C [address] [place] [address] 6 Month follow up and yearly physical 03/04/2025 5:20 PM EST Office Visit [address] [address] Basim White MD [address] [place] [address] 12 month follow up documented as of [...] documented as of this encounter Care Teams Liner Installer Relationship Specialty Start Date End Date Basim White MD [address] [place] [address] PCP - General Family Medicine 08/09/17 Nate Joyce DO [place] Machine Operator 02/09/13 Paulie Sandra MD [address] [address] Primary Staff Physician Cardiology 07/04/18 Teagan Henriquez, RN [address]000 [place] [address] Primary Care Graphics Coordinator Internal Medicine 06/22/23 07/21/23 Pascale Kc, PHOTO RETOUCHER.TALENT ENGINEER [address] [place] [address] Management Supervisor Family Medicine 03/26/24 07/04/24 Leeanne Balderas, PHOTO RETOUCHER.TALENT ENGINEER [address] [place] [address] Management Supervisor Family Medicine 03/26/24 07/04/24 Juanita Luong PA-C [address] [place] [address] Management Supervisor Family Medicine 03/26/24 07/04/24 Rubi Rodriguez, PHOTO RETOUCHER.TALENT ENGINEER [address] [place] [address] Management Supervisor Family Medicine 03/26/24 07/04/24 Christiana Sims PA-C [address] [place] [address] Management Supervisor Family Medicine 03/26/24 Tami Vazquez PA-C [address] [place] [address] Management Supervisor Family Medicine 06/07/24 07/04/24 Juanita Luong PA-C [address] [place] [address] Management Supervisor Family Medicine 07/11/24 07/25/24 Awa Sanchez PA-C 5172 [place] [address] Management Supervisor Internal Medicine 09/03/24 documented as of this encounter
--- OUTSIDE RECORDS SUMMARY | 2024-09-09 00:45 | XMS_ITS | Encounter Summary ---
Author Organization [facility] Address [address] [place], [place] [address] Care Team Providers Care Bulk Picker Name Role Phone IsiahNate greenfield Unavailable [phone] Anastasia Ruiz DO Primary Care Provider Basim White MD Primary Care Provider [phone] Paulie Sandra MD Unavailable Paulie Sandra MD Unavailable Teagan Henriquez RN Unavailable P[employer] Kc ASSISTED LIVING NURSING DIRECTOR.LEASING DIRECTOR Unavailable Leeanne Balderas ASSISTED LIVING NURSING DIRECTOR.LEASING DIRECTOR Unavailable [phone] Juanita Luong PA-C Unavailable Rubi Rodriguez ASSISTED LIVING NURSING DIRECTOR.LEASING DIRECTOR Unavailable Christiana Sims PA-C Unavailable Tami Vazquez PA-C Unavailable [phone] Juanita Luong PA-C Unavailable Awa Sanchez PA-C Unavailable Source Comments In the event this information is protected by the Federal Confidentiality of Alcohol and Drug AbusePatient Records regulations: The Federal rules restrict any use of the information to criminally investigate or prosecute any alcohol or drug abuse patient.[facility] Encounter Details Date Type Department Care Team (Late st Contact Info) Description 10/11/2016 Patient Msg Family Medicine [address] [place] [address] Provider, [facility] Lab Orders for your Appointment with Dr. 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 on file Not [...] Contact Info) Description 09/24/2024 6:00 PM EDT [address] [address] Basim White MD [address] [place] [address] 3 month follow up 11/28/2024 9:40 AM EDT [facility] Endocrinology [place] [address] [place] [phone] [place] [address] [address] Type one diabetes pump and cgm follow up 12/20/2024 4:00 PM EDT [address] [address] Christiana Sims PA-C [address] [place] [address] 6 Month follow up and yearly physical 03/04/2025 5:20 PM EST Office Visit [address] [place] [address] [address] Basim White MD [address] [place] [address] 12 month follow up documented as of [...] documented as of this encounter Care Teams Bulk Picker Relationship Specialty Start [place] [address] [place] [address] PCP - General Family Medicine 06/10/16 08/08/17 Basim White MD [address] [place] [address] PCP - General Family Medicine 08/09/17 Nate Joyce DO Temporary Receptionist 02/09/13 Paulie Sandra MD [address] [facility] [address] [place] [phone] Primary Staff Physician Cardiology 07/04/1807/04 Paulie Sandra MD [address] [facility] [address] [place] [address] Primary Staff Physician Cardiology 07/04/18 Teagan Henriquez, RN 6000 [place] [address] Primary Care Armoring Machine Operator Internal Medicine 06/22/23 07/21/23 Pascale Kc, ASSISTED LIVING NURSING DIRECTOR.LEASING DIRECTOR [address] [place] [address] [facility] Family [facility] 03/26/24 07/04/24 Leeanne Balderas, ASSISTED LIVING NURSING DIRECTOR.LEASING DIRECTOR [address] [place] [address] [facility] Family Medicine 03/26/24 07/04/24 Juanita Luong PA-C [address] [place] [address] [employer] Family Medicine 03/26/24 07/04/24 Rubi Rodriguez, ASSISTED LIVING NURSING DIRECTOR.LEASING DIRECTOR [address] [place] [address] [facility] Family Medicine 03/26/24 07/04/24 Christiana Sims PA-C [address] [place] [address] [facility] Family Medicine 03/26/24 Tami Vazquez PA-C [address] [place] [address] [facility] Family Medicine 06/07/24 07/04/24 Juanita Luong PA-C [address] [place], [place] [id number] [facility] Family Medicine 07/11/24 07/25/24 Awa Sanchez PA-C [address] [place] [id number] [facility] Internal Medicine 09/03/24 documented as of this encounter
--- OUTSIDE RECORDS SUMMARY | 2024-09-09 00:45 | XMS_ITS | Encounter Summary ---
Author Organization [facility] Address [address] [place], [place] [address] Care Team Providers Care Racket Stringer Name Role Phone IsiahNate greenfield Unavailable [phone] Anastasia Ruiz DO Primary Care Provider Basim White MD Primary Care Provider [phone] Paulie Sandra MD Unavailable Paulie Sandra MD Unavailable Teagan Henriquez RN Unavailable Pascale Kc EARLY CHILDHOOD LEAD TEACHER.OPERATOR ASSISTANT I CEMENTING Unavailable Leeanne Balderas EARLY CHILDHOOD LEAD TEACHER.OPERATOR ASSISTANT I CEMENTING Unavailable [phone] Juanita Luong PA-C Unavailable Rubi Rodriguez EARLY CHILDHOOD LEAD TEACHER.OPERATOR ASSISTANT I CEMENTING Unavailable Christiana Sims PA-C Unavailable Tami Vazquez PA-C Unavailable [phone] Juanita Luong PA-C Unavailable Awa Sanchez PA-C Unavailable Source Comments In the event this information is protected by the Federal Confidentiality of Alcohol and Drug AbusePatient Records regulations: The Federal rules restrict any use of the information to criminally investigate or prosecute any alcohol or drug abuse patient.[facility] Encounter Details Date Type Department Care Team (Late st Contact Info) Description 11/25/2016 Get Medical Advice Endocrinology [address] [place], [place] [phone] [place] [address] [place] [address] RE: Non-Urgent Medical Question Social History Tobacco [...] 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 * Telephone Encounter - Kirstie Duron) - 12/01/2016 3:32 PM EDT Please put patient on schedule. documented in this encounter Plan of Treatment Upcoming Encounters Date Type Department Care Team (Latest Contact Info) Description 09/24/2024 6:00 PM EDT [address] [address] Basim White MD [address] [place] [address] 3 month follow up 11/28/2024 9:40 AM EDT [facility] Endocrinology [place] [address] [place] [address] [place] [address] [address] Type one diabetes pump and cgm follow up 12/20/2024 4:00 PM EDT [facility] [address] [place] [address] Christiana Sims PA-C 450 [facility] [address] 6 Month follow up and yearly physical 03/04/2025 5:20 PM EST Office Visit Family Medicine [facility] [address] [place] [address] Basim White MD [address] [place], [place] [phone] 12 month follow up documented as of [...] documented as of this encounter Care Teams Racket Stringer Relationship Specialty Start Date End Date L[place] Ru[place]a GarciaDO [address] [place] [address] PCP - General Family Medicine 06/10/16 08/08/17 Basim White MD [address] [place] [address] PCP - General Family Medicine 08/09/17 Nate Joyce DO Commercial Producer 02/09/13 Paulie Sandra MD [address] [facility] [address] [place] [address] Primary Staff Physician Cardiology 07/04/1807/04 Paulie Sandra MD [address] [facility] 110 [place] [phone] Primary Staff Physician Cardiology 07/04/18 Teagan Henriquez, RN [address] [place] [id number] Primary Care Clay Burner Internal Medicine 06/22/23 07/21/23 Pascale Kc, EARLY CHILDHOOD LEAD TEACHER.OPERATOR ASSISTANT I CEMENTING [address] [place] [address] [facility] Family Medicine 03/26/24 07/04/24 Leeanne Balderas APRN.OPERATOR ASSISTANT I CEMENTING [address] [place] [address] [facility] 03/26/24 07/04/24 Juanita Luong PA-C [address] [place] [address] [facility] 03/26/24 07/04/24 Rubi Rodriguez APRN.OPERATOR ASSISTANT I CEMENTING [address] [place] [address] [facility] 03/26/24 07/04/24 Christiana Sims PA-C [address] [place] [address] [facility] 03/26/24 Tami Vazquez PA-C [address] [place] [address] [facility] 06/07/24 07/04/24 Juanita Luong PA-C [address] [place] [address] [facility] 07/11/24 07/25/24 Awa Sanchez PA-C [address] [place] [address] [facility] Internal Medicine 09/03/24 documented as of this encounter
--- OUTSIDE RECORDS SUMMARY | 2024-09-09 00:45 | XMS_ITS | Encounter Summary ---
Author Organization [facility] Address [address] [place], [place] [address] Care Team Providers Care Pacs Specialist Name Role Phone IsiahNate greenfiedl Unavailable [phone] Anastasia Ruiz DO Primary Care Provider Basim White MD Primary Care Provider [phone] Paulie Sandra MD Unavailable Paulie Sandra MD Unavailable Teagan Henriquez RN Unavailable Pascale Kc ELEMENTARY SPANISH TEACHER.HOSPITAL RECRUITER Unavailable Leeanne Balderas ELEMENTARY SPANISH TEACHER.HOSPITAL RECRUITER Unavailable [phone] Juanita Luong PA-C Unavailable Rubi Rodriguez ELEMENTARY SPANISH TEACHER.HOSPITAL RECRUITER Unavailable Christiana Sims PA-C Unavailable Tami Vazquez PA-C Unavailable [phone] Juanita Luong PA-C Unavailable Awa Sanchez PA-C Unavailable Source Comments In the event this information is protected by the Federal Confidentiality of Alcohol and Drug AbusePatient Records regulations: The Federal rules restrict any use of the information to criminally investigate or prosecute any alcohol or drug abuse patient.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 Not [...] Contact Info) Description 09/24/2024 6:00 PM EDT [address] [address] Basim White MD [address] [place] [address] 3 month follow up 11/28/2024 9:40 AM EDT [facility] Endocrinology [place] [address] [place] [address] [place] [address] [address] Type one diabetes pump and cgm follow up 12/20/2024 4:00 PM EDT [address] [address] Christiana Sims PA-C [address] [place] [address] 6 Month follow up and yearly physical 03/04/2025 5:20 PM EST Office Visit [address] [address] Basim [place] MD [address] [place] [address] 12 month follow up documented as of [...] documented as of this encounter Care Teams Pacs Specialist Relationship Specialty Start [place] [address] [place] [address] PCP - General Family Medicine 06/10/16 08/08/17 Basim White MD 450 [place] [address] PCP - General Family Medicine 08/09/17 Nate Joyce DO Frame Welder Cargo Utility Trailers 02/09/13 Paulie Sandra MD [address] [facility] [address] [place] [phone] Primary Staff Physician Cardiology 07/04/1807/04 Paulie Sandra MD [address] [facility] [address] [place] [address] Primary Staff Physician Cardiology 07/04/18 Teagan Henriquez, RN [address] [place], [place] [phone] Primary Care Varnish Melter Internal Medicine 06/22/23 07/21/23 Pascale Kc, ELEMENTARY SPANISH TEACHER.HOSPITAL RECRUITER [address] [place] [address] Fermentation Scientist Family Medicine 03/26/24 07/04/24 Leeanne Balderas, ELEMENTARY SPANISH TEACHER.HOSPITAL RECRUITER [address] [place] [address] Fermentation Scientist Family Medicine 03/26/24 07/04/24 Juanita Luong PA-C [address] [place] [address] Fermentation Scientist Family Medicine 03/26/24 07/04/24 Rubi Rodriguez, ELEMENTARY SPANISH TEACHER.HOSPITAL RECRUITER [address] [place] [address] Fermentation Scientist Family Medicine 03/26/24 07/04/24 Christiana Sims PA-C [address] [place] [address] Fermentation Scientist Family Medicine 03/26/24 Tami Vazquez PA-C [address] [place] [address] Fermentation Scientist Family Medicine 06/07/24 07/04/24 Juanita Luong PA-C [address] [place] [address] Fermentation Scientist Family Medicine 07/11/24 07/25/24 Awa Sanchez PA-C [address] [place] [address] Fermentation Scientist Internal Medicine 09/03/24 documented as of this encounter
--- OUTSIDE RECORDS SUMMARY | 2024-09-09 00:45 | XMS_ITS | Encounter Summary ---
Author Organization [facility] Address [address] [place], [place] [address] Care Team Providers Care Favor Maker Name Role Phone IsiahNate greenfield Cecelia OSBORNE Unavailable [phone] Basim White MD Primary Care Provider Paulie Sandra MD Unavailable Pascale Kc RAIL CAR LOADER.DRIVER GUARD Unavailable Leeanne Balderas RAIL CAR LOADER.DRIVER GUARD Unavailable [phone] Juanita Luong PA-C Unavailable Rubi Rodriguez RAIL CAR LOADER.DRIVER GUARD Unavailable Christiana Sims PA-C Unavailable Tami Vazquez PA-C Unavailable [phone] Juanita Luong PA-C Unavailable Awa Sanchez PA-C Unavailable Source Comments In the event this information is protected by the Federal Confidentiality of Alcohol and Drug AbusePatient Records regulations: The Federal rules restrict any use of the information to criminally investigate or prosecute any alcohol or drug abuse patient.[facility] Encounter Details Date Type Department Care Team (Late st Contact Info) Description 08/19/2023 Get Medical Advice Family Medicine [place] [address] [place] [address] Basim White MD [address] [place], [place] [phone] Valium Social History Tobacco Use Types Packs/Day Years Used Date Smoking Tobacco: Never Smokeless Tobacco: Never Alcohol Use Standard Drinks/Week Comments Yes 0 (1 standard drink = 0.6 oz pur e alcohol) rarely [facility] Utilities Answer Date Recorded In the [...] Never 05/20/2023 How often do you attend [facility] or jew services? More than 4 [...] Answer Date Recorded PHQ-2 score 4 06/25/2023 [facility] [place] of Occupat ional Health - Occupational Stress [...] place to sleep or slept in a retirement (including now)? No 06/20/2023 Area Deprivation Index Answer Date Sergio rded National Score (1-100), lower number is lower ri sk 79 08/26/2022 State Score (1-10), lower number is lower risk 7 08/26/2022 Data from: https://www.neighborhoodatlas.medicine.[facility].edu/. 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 Not on file Not [...] Contact Info) Description 09/24/2024 6:00 PM EDT [facility] Family Medicine [place] [address] [place] [address] Basim White MD [address] [place] [address] 3 month follow up 11/28/2024 9:40 AM EDT [facility] Endocrinology [place] [address] [place] [address] [place] [address] [facility] [address] [place] [address] Type one diabetes pump and cgm follow up 12/20/2024 4:00 PM EDT [facility] Family Medicine [place] [address] [place] [address] Christiana Sims PA-C [address] [place] [address] 6 Month follow up and yearly physical 03/04/2025 5:20 PM EST Office Visit [address] [address] Basim White MD [address] [place] [address] 12 month follow up documented as of this encounter Goals Goal Patient Goal Type Associated Problems Recent Progress Patient-Stated? Author Blood Pressure < 130/80 Blood Pressure 108/64(08/2023 7:48 AM EST) No Shena Coto, RN Care Coordination - Diabetes Care Coordination Counseling [...] as of this encounter Visit Diagnoses Diagnosis Autoimmune disorder (HCC) Autoimmune disease, not elsewhere classified documented in this encounter Care Teams Favor Maker Relationship Specialty Start Date End Date Basim White MD [address] [place] [address] PCP - General Family Medicine 08/09/17 Nate Joyce DO Carbon Paper Coating Machine Setter 02/09/13 Paulie Sandra MD [address] [phone] Primary Staff Physician Cardiology 07/04/18 Pascale Kc, RAIL CAR LOADER.DRIVER GUARD [address] [place] [address] [facility] 03/26/24 07/04/24 Leeanne Balderas, RAIL CAR LOADER.DRIVER GUARD [address] [place] [address] [facility] Family Medicine 03/26/24 07/04/24 Juanita Luong PA-C [address] [place] [address] [facility] Family [facility] 03/26/24 07/04/24 Rubi Rodriguez APRN.DRIVER GUARD [address] [place] [address] [employer] Family Medicine 03/26/24 07/04/24 Christiana Sims PA-C [address] [place] [address] [employer] Family Medicine 03/26/24 Tami Vazquez PA-C [address] [place] [address] [facility] Family Medicine 06/07/24 07/04/24 Juanita Luong PA-C [address] [place] [address] [facility] Family Medicine 07/11/24 07/25/24 Awa Sanchez PA-C [address] [place] [address] [facility] Internal Medicine 09/03/24 documented as of this encounter
--- OUTSIDE RECORDS SUMMARY | 2024-09-09 00:45 | XMS_ITS | Encounter Summary ---
Author Organization [facility] Address [address] [place], [place] [id number] Care Team Providers Care Viscose Cellar Charge Hand Name Role Phone IsiahNate greenfield Unavailable [phone] Anastasia Ruiz DO Primary Care Provider Basim White MD Primary Care Provider [phone] Paulie Sandra MD Unavailable Paulie Sandra MD Unavailable Teagan Henriquez RN Unavailable Pascale Kc GEAR GRINDING MACHINE OPERATOR.DAIRY CLERK Unavailable Leeanne Balderas GEAR GRINDING MACHINE OPERATOR.DAIRY CLERK Unavailable [phone] Juanita Luong PA-C Unavailable Rubi Rodriguez GEAR GRINDING MACHINE OPERATOR.DAIRY CLERK Unavailable Christiana Sims PA-C Unavailable Tami Vazquez PA-C Unavailable [phone] Juanita Luong PA-C Unavailable Awa Sanchez PA-C Unavailable Source Comments In the event this information is protected by the Federal Confidentiality of Alcohol and Drug AbusePatient Records regulations: The Federal rules restrict any use of the information to criminally investigate or prosecute any alcohol or drug abuse patient.[facility] Encounter Details Date Type Department Care Team (Late st Contact Info) Description 12/09/2016 Patient Msg Endocrinology [address] [place] [address] Provider, Ccf Upcoming Endocrinology Appointment Social History [...] Industry Job Start Date Job End Date [employer] Not on file Not on file Not [...] Contact Info) Description 09/24/2024 6:00 PM EDT [address] [address] Basim White MD [address] [place] [address] 3 month follow up 11/28/2024 9:40 AM EDT [facility] Endocrinology [place] [address] [place] [address] [place] [address] [address] Type one diabetes pump and cgm follow up 12/20/2024 4:00 PM EDT [address] [address] Christiana Sims PA-C [address] [place] [address] 6 Month follow up and yearly physical 03/04/2025 5:20 PM EST Office Visit [address] [address] Basim White MD [address] [place] [address] 12 month follow up documented as of [...] documented as of this encounter Care Teams Viscose Cellar Charge Hand Relationship Specialty Start [place] [address] [place] [address] PCP - General Family Medicine 06/10/16 08/08/17 Basim White MD [address] [place] [address] PCP - General Family Medicine 08/09/17 Nate Joyce DO Pet Sitter 02/09/13 Paulie Sandra MD [address] [facility] [address] [place] [phone] Primary Staff Physician Cardiology 07/04/1807/04 Paulie Sandra MD [address] [facility] [address] [place] [address] Primary Staff Physician Cardiology 07/04/18 Teagan Henriquez, RN [address] [place] [address] Primary Care Edge [facility] Internal Medicine 06/22/23 07/21/23 Pascale Kc, GEAR GRINDING MACHINE OPERATOR.DAIRY CLERK [address] [place] [address] [facility] 03/26/24 07/04/24 Leeanne Balderas, GEAR GRINDING MACHINE OPERATOR.DAIRY CLERK [address] [place] [address] [facility] Family Medicine 03/26/24 07/04/24 Juanita Luong PA-C [address] [place] [address] Sustainability Executive Director Family Medicine 03/26/24 07/04/24 Rubi Rodriguez, GEAR GRINDING MACHINE OPERATOR.DAIRY CLERK [address] [place] [address] [facility] Family Medicine 03/26/24 07/04/24 Christiana Sims PA-C [address] [place] [address] [facility] Family Medicine 03/26/24 Tami Vazquez PA-C [address] [place] [address] Sustainability Executive Director Family Medicine 06/07/24 07/04/24 Juanita Luong PA-C [address] [place] [address] [facility] Family Medicine 07/11/24 07/25/24 Awa Sanchez PA-C [address] [place] [address] [facility] Internal Medicine 09/03/24 documented as of this encounter
--- OUTSIDE RECORDS SUMMARY | 2024-09-09 00:45 | XMS_ITS | Encounter Summary ---
Author Organization [facility] Address [address], [place] [address] Care Team Providers Care Panama Hat Hydraulic Press Operator Name Role Phone IsiahNate greenfield Cecelia OSBORNE Unavailable [phone] Basim White MD Primary Care Provider Paulie Sandra MD Unavailable [phone] Pascale Kc CIRCULAR SAW EDGE FUSER.CORRECTIVE THERAPIST Unavailable Leeanne Balderas CIRCULAR SAW EDGE FUSER.CORRECTIVE THERAPIST Unavailable [phone] Juanita Luong PA-C Unavailable Rubi Rodriguez CIRCULAR SAW EDGE FUSER.CORRECTIVE THERAPIST Unavailable Christiana Sims PA-C Unavailable Tami Vazquez PA-C Unavailable [phone] Juanita Luong PA-C Unavailable Awa Sanchez PA-C Unavailable Source Comments In the event this information is protected by the Federal Confidentiality of Alcohol and Drug AbusePatient Records regulations: The Federal rules restrict any use of the information to criminally investigate or prosecute any alcohol or drug abuse patient.[facility] Encounter Details Date Type Department Care Team (Late st Contact Info) Description 08/15/2023 Patient Msg [facility] [address] [place] [address] Jesse Leon DPM [address] [place] [address] Appointment Cancellation Request Social History Tobacco Use Types Packs/Day Years Used Date Smoking Tobacco: Never Smokeless Tobacco: Never Alcohol Use Standard Drinks/Week Comments Yes 0 (1 standard drink = 0.6 oz pur e alcohol) rarely [facility] Utilities Answer Date Recorded In [...] Never 05/20/2023 How often do you attend [facility] ch or worship services? More than 4 times per year 05/20/2023 Do you belong to any clubs o r organizations such as muslim groups, unions, fraternal or athletic groups, or [...] Answer Date Recorded PHQ-2 score 4 06/25/2023 [facility] [place] of Occupat ional Health - Occupational Stress [...] or slept in a jail (including now)? No 06/20/2023 Area Deprivation Index Answer Date Sergio rded National Score (1-100), lower number is lower ri sk 79 08/26/2022 State Score (1-10), lower number is lower risk 7 08/26/2022 Data from: https://www.neighborhoodatlas.medicine.[facility].edu/. [...] Industry Job Start Date Job End Date [employer] Not on file Not on file Not [...] Contact Info) Description 09/24/2024 6:00 PM EDT [facility] Medicine [place] [address] [place], [place] [id number] Basim White MD [address] [place], [place] [address] 3 month follow up 11/28/2024 9:40 AM EDT [facility] Endocrinology [place] [address] [place] [address] [place] [address] [address] Type one diabetes pump and cgm follow up 12/20/2024 4:00 PM EDT [facility] Family Medicine [place] [address] [place] [address] Christiana Sims PA-C [address] [place] [address] 6 Month follow up and yearly physical 03/04/2025 5:20 PM EST Office Visit [address] [address] Basim White MD [address] [place] [address] 12 month follow up documented as of [...] on filedocumented in this encounter Care Teams Panama Hat Hydraulic Press Operator Relationship Specialty Start Date End Date Basim White MD [address] [place] [address] PCP - General Family Medicine 08/09/17 Nate Joyce DO Head Holder 02/09/13 Paulie Sandra MD [address] [address] Primary Staff Physician Cardiology 07/04/18 Pascale Kc, CIRCULAR SAW EDGE FUSER.CORRECTIVE THERAPIST [address] [place] [address] [facility] Family [facility] 03/26/24 07/04/24 Leeanne Balderas, CIRCULAR SAW EDGE FUSER.CORRECTIVE THERAPIST [address] [place] [address] [facility] Family Medicine 03/26/24 07/04/24 Juanita Luong PA-C [address] [place] [address] [facility] Family [facility] 03/26/24 07/04/24 Rubi Rodriguez APRN.CORRECTIVE THERAPIST [address] [place] [address] Recycling Assistant Family Medicine 03/26/24 07/04/24 Christiana Sims PA-C [address] [place] [address] [facility] Family Medicine 03/26/24 Tami Vazquez PA-C [address] [place] [address] [facility] Family Medicine 06/07/24 07/04/24 Juanita Luong PA-C [address] [place] [address] [facility] Family Medicine 07/11/24 07/25/24 Awa Sanchez PA-C [address] [place] [address] [facility] Internal Medicine 09/03/24 documented as of this encounter
--- OUTSIDE RECORDS SUMMARY | 2024-09-09 00:45 | XMS_ITS | Encounter Summary ---
Author Organization [facility] Address [address] [place], [place] [address] Care Team Providers Care Archaeologist Name Role Phone IsiahNate greenfield Cecelia OSBORNE Unavailable [phone] Basim White MD Primary Care Provider Paulie Sandra MD Unavailable Pascale Kc HYDRATOR OPERATOR.CHARGE HAND Unavailable Leeanne Balderas HYDRATOR OPERATOR.CHARGE HAND Unavailable [phone] Juanita Luong PA-C Unavailable Rubi Rodriguez HYDRATOR OPERATOR.CHARGE HAND Unavailable Christiana Sims PA-C Unavailable Tami Vazquez PA-C Unavailable [phone] Juanita Luong PA-C Unavailable Awa Sanchez PA-C Unavailable Source Comments In the event this information is protected by the Federal Confidentiality of Alcohol and Drug AbusePatient Records regulations: The Federal rules restrict any use of the information to criminally investigate or prosecute any alcohol or drug abuse patient.[facility] Encounter Details Date Type Department Care Team (Late st Contact Info) Description 08/26/2023 Patient Msg [place] [address] [place] [address] [address] [place], [place] [address] Medication information Social History Tobacco Use Types Packs/Day Years Used Date Smoking Tobacco: Never Smokeless Tobacco: Never Alcohol Use Standard Drinks/Week Comments Yes 0 (1 standard drink = 0.6 oz pur e alcohol) rarely [facility] Utilities Answer Date Recorded In [...] Never 05/20/2023 How often do you attend [facility] or faith services? More than 4 times [...] Answer Date Recorded PHQ-2 score 4 06/25/2023 [facility] [place] of Occupat ional Health - Occupational Stress [...] place to sleep or slept in a care home (including now)? No 06/20/2023 Area Deprivation Index Answer Date Sergio rded National Score (1-100), lower number is lower ri sk 79 08/26/2022 State Score (1-10), lower number is lower risk 7 08/26/2022 Data from: https://www.neighborhoodatlas.medicine.[facility].edu/. Last address used for calculation [address] [...] Industry Job Start Date Job End Date [employer] Not on file Not on file Not [...] Description 09/24/2024 6:00 PM EDT [facility] Family [place] [address] [place] [address] Basim White MD [address] [place] [address] 3 month follow up 11/28/2024 9:40 AM EDT [facility] Endocrinology [place] [address] [place] [address] [place] [address] [facility] [address] [place] [address] Type one diabetes pump and cgm follow up 12/20/2024 4:00 PM EDT [facility] Family Medicine [address] [place] [address] Christiana Sims PA-C [address] [place] [address] 6 Month follow up and yearly physical 03/04/2025 5:20 PM EST Office Visit [address] [address] Basim White MD [address] [place] [address] 12 month follow up documented as of [...] on filedocumented in this encounter Care Teams Archaeologist Relationship Specialty Start Date End Date Basim White MD [address] [place] [address] PCP - General Family Medicine 08/09/17 Nate Joyce DO Music Publisher 02/09/13 Paulie Sandra MD [address] [address] Primary Staff Physician Cardiology 07/04/18 Pascale Kc, HYDRATOR OPERATOR.CHARGE HAND [address] [place] [address] [facility] Family [facility] 03/26/24 07/04/24 Leeanne Balderas, HYDRATOR OPERATOR.CHARGE HAND [address] [place] [address] [facility] Family Medicine 03/26/24 07/04/24 Juanita Luong PA-C [address] [place] [address] [facility] Family Medicine 03/26/24 07/04/24 Rubi Rodriguez APRN.CHARGE HAND [address] [place] [address] Clerical Warehouse Worker Family Medicine 03/26/24 07/04/24 Christiana Sims PA-C [address] [place] [address] Clerical Warehouse Worker Family Medicine 03/26/24 Tami Vazquez PA-C [address] [place] [address] Clerical Warehouse Worker Family Medicine 06/07/24 07/04/24 Juanita Luong PA-C [address] [place] [address] Clerical Warehouse Worker Family Medicine 07/11/24 07/25/24 Awa Sanchez PA-C [address] [place] [address] Clerical Warehouse Worker Internal Medicine 09/03/24 documented as of this encounter
--- OUTSIDE RECORDS SUMMARY | 2024-09-09 00:45 | XMS_ITS | Encounter Summary ---
Author Organization [facility] Address [address] [place], [place] [address] Care Team Providers Care Dining Room Server Name Role Phone IsiahNate greenfield Cecelia OSBORNE Unavailable [phone] Basim White MD Primary Care Provider [phone] Paulie Sandra MD Unavailable Pascale Kc REPAIRER AND CHECKER.CALCULATOR OPERATOR Unavailable Leeanne Balderas REPAIRER AND CHECKER.CALCULATOR OPERATOR Unavailable [phone] Juanita Luong PA-C Unavailable Rubi Rodriguez REPAIRER AND CHECKER.CALCULATOR OPERATOR Unavailable Christiana Sims PA-C Unavailable Tami Vazquez PA-C Unavailable [phone] Juanita Luong PA-C Unavailable Awa Sanchez PA-C Unavailable Source Comments In the event this information is protected by the Federal Confidentiality of Alcohol and Drug AbusePatient Records regulations: The Federal rules restrict any use of the information to criminally investigate or prosecute any alcohol or drug abuse patient.[facility] Encounter Details Date Type Department Care Team (Late st Contact Info) Description 09/07/2023 Patient Msg Neurology [address] [place] [address] Provider, Ccf Notification of upcoming virtual Neurological Sleep Appointment: Social History Tobacco Use Types Packs/Day Years Used Date Smoking Tobacco: Never Smokeless Tobacco: Never Alcohol Use Standard Drinks/Week Comments Yes 0 (1 standard drink = 0.6 oz pur e alcohol) rarely [facility] Utilities Answer Date Recorded In the past [...] Never 05/20/2023 How often do you attend [facility] ch or pentecostal services? More than 4 times per year 05/20/2023 Do you belong to any clubs o r organizations such as shinto groups, unions, fraternal or athletic groups, or [...] Answer Date Recorded PHQ-2 score 6 09/03/2023 [facility] [place] of Occupat ional Health - Occupational Stress [...] slept in a snf (including now)? No 06/20/2023 Area Deprivation Index Answer Date Sergio rded National Score (1-100), lower number is lower ri sk 79 08/26/2022 State Score (1-10), lower number is lower risk 7 08/26/2022 Data from: https://www.neighborhoodatlas.medicine.[facility].edu/. Last address used for calculation [...] Industry Job Start Date Job End Date [employer] Not on file Not on file Not [...] Contact Info) Description 09/24/2024 6:00 PM EDT [facility] Family Medicine [place] [address] [place] [address] Basim White MD [address] [place] [address] 3 month follow up 11/28/2024 9:40 AM EDT [facility] Endocrinology [place] [address] [place] [address] [place] [address] [facility] [address] [place] [address] Type one diabetes pump and cgm follow up 12/20/2024 4:00 PM EDT [facility] [address] [place] [address] Christiana Sims PA-C 450 [place] [address] 6 Month follow up and yearly physical 03/04/2025 5:20 PM EST Office Visit [address] [address] Basim White MD [address] [place] [address] 12 month follow up documented as of [...] on filedocumented in this encounter Care Teams Dining Room Server Relationship Specialty Start Date End Date Basim White MD [address] [place] [address] PCP - General Family Medicine 08/09/17 Nate Joyce DO School Janitor 02/09/13 Paulie Sandra MD [address] [phone] Primary Staff Physician Cardiology 07/04/18 Pascale Kc REPAIRER AND CHECKER.CALCULATOR OPERATOR [address] [place] [address] [facility] 03/26/24 07/04/24 Leeanne Balderas, REPAIRER AND CHECKER.CALCULATOR OPERATOR [address] [place] [address] [facility] Family [facility] 03/26/24 07/04/24 Juanita Luong PA-C [address] [place] [address] [facility] 03/26/24 07/04/24 Rubi Rodriguez, REPAIRER AND CHECKER.CALCULATOR OPERATOR [address] [place] [address] Rheumatology Specialist Family Medicine 03/26/24 07/04/24 Christiana Sims PA-C [address] [place] [address] Rheumatology Specialist Family Medicine 03/26/24 Tami Vazquez PA-C [address] [place] [address] Rheumatology Specialist Family Medicine 06/07/24 07/04/24 Juanita Luong PA-C [address] [place] [address] Rheumatology Specialist Family Medicine 07/11/24 07/25/24 Awa Sanchez PA-C [address] [place] [address] Rheumatology Specialist Internal Medicine 09/03/24 documented as of this encounter
--- OUTSIDE RECORDS SUMMARY | 2024-09-09 00:45 | XMS_ITS | Encounter Summary ---
Author Organization [facility] Address [address] [place], [place] [address] Care Team Providers Care Wine And Spirits Clerk Name Role Phone IsiahNate greenfield Cecelia OSBORNE Unavailable [phone] Basim White MD Primary Care Provider [phone] Paulie Sandra MD Unavailable Pascale Kc ADVISER SALES.SENIOR SOFTWARE QA ANALYST Unavailable Leeanne Balderas ADVISER SALES.SENIOR SOFTWARE QA ANALYST Unavailable [phone] Juanita Luong PA-C Unavailable Rubi Rodriguez ADVISER SALES.SENIOR SOFTWARE QA ANALYST Unavailable Christiana Sims PA-C Unavailable Tami Vazquez PA-C Unavailable [phone] Juanita Luong PA-C Unavailable Awa Sanchez PA-C Unavailable Source Comments In the event this information is protected by the Federal Confidentiality of Alcohol and Drug AbusePatient Records regulations: The Federal rules restrict any use of the information to criminally investigate or prosecute any alcohol or drug abuse patient.[facility] Encounter Details Date Type Department Care Team (Late st Contact Info) Description 09/21/2023 Patient Msg Neurology [address] [place] [address] Provider, Ccf Please contact scheduling Social History Tobacco Use Types Packs/Day Years Used Date Smoking Tobacco: Never Smokeless Tobacco: Never Alcohol Use Standard Drinks/Week Comments Yes 0 (1 standard drink = 0.6 oz pur e alcohol) rarely [facility] Utilities Answer Date Recorded In the [...] Never 05/20/2023 How often do you attend [facility] or synagogue services? More than 4 times per year 05/20/2023 Do you belong to any clubs o r organizations such as caodaism groups, unions, fraternal or athletic groups, or [...] Answer Date Recorded PHQ-2 score 6 09/03/2023 [facility] [place] of Occupat ional Health - Occupational Stress [...] or slept in a assisted (including now)? No 06/20/2023 Area Deprivation Index [...] Industry Job Start Date Job End Date [employer] Not on file Not on file Not [...] Contact Info) Description 09/24/2024 6:00 PM EDT [facility] Family Medicine [place] [address] [place], [place] [address] Basim White MD [address] [place] [address] 3 month follow up 11/28/2024 9:40 AM EDT [facility] Endocrinology [address] [address] [place] [address] [facility] [address] [place] [address] Type one diabetes pump and cgm follow up 12/20/2024 4:00 PM EDT [facility] 450 [place] [address] Christiana Sims PA-C 450 [place] [address] 6 Month follow up and yearly physical 03/04/2025 5:20 PM EST Office Visit [facility] 450 [place] [address] Basim White MD [address] [place] [address] 12 month follow up documented as of [...] filedocumented in this encounter Care Teams Wine And Spirits Clerk Relationship Specialty Start Date End Date Basim White MD [address] [place] [address] PCP - General Family Medicine 08/09/17 Nate Joyce DO Appliance Assembler 02/09/13 Paulie Sandra MD [address] [phone] Primary Staff Physician Cardiology 07/04/18 Pascale Kc, ADVISER SALES.SENIOR SOFTWARE QA ANALYST [address] [place] [address] [facility] 03/26/24 07/04/24 Leeanne Balderas, ADVISER SALES.SENIOR SOFTWARE QA ANALYST [address] [place] [address] [facility] 03/26/24 07/04/24 Juanita Luong PA-C [address] [place] [address] [facility] 03/26/24 07/04/24 Rubi Rodriguez, ADVISER SALES.SENIOR SOFTWARE QA ANALYST [address] [place] [address] [facility] [employer] Family Medicine 03/26/24 07/04/24 Christiana Sims PA-C [address] [place] [address] [facility] [employer] Family Medicine 03/26/24 Tami Vazquez PA-C [address] [place] [address] [facility] [employer] Family Medicine 06/07/24 07/04/24 Juanita Luong PA-C [address] [place] [address] [facility] [employer] Family Medicine 07/11/24 07/25/24 Awa Sanchez PA-C [address] [place] [address] [employer] Coverer Internal Medicine 09/03/24 documented as of this encounter
--- OUTSIDE RECORDS SUMMARY | 2024-09-09 00:45 | XMS_ITS | Encounter Summary ---
Author Organization [facility] Address [address] [place], [place] [address] Care Team Providers Care Car Sander Name Role Phone IsiahNate greenfield Cecelia OSBORNE Unavailable [phone] Basim White MD Primary Care Provider [phone] Paulie Sandra MD Unavailable Pascale Kc CHAIN MACHINE OPERATOR.COUNSELOR CAMP Unavailable Leeanne Balderas CHAIN MACHINE OPERATOR.COUNSELOR CAMP Unavailable [phone] Juanita Luong PA-C Unavailable Rubi Rodriguez CHAIN MACHINE OPERATOR.COUNSELOR CAMP Unavailable Christiana Sims PA-C Unavailable Tami Vazquez PA-C Unavailable [phone] Juanita Luong PA-C Unavailable Awa Sanchez PA-C Unavailable Source Comments In the event this information is protected by the Federal Confidentiality of Alcohol and Drug AbusePatient Records regulations: The Federal rules restrict any use of the information to criminally investigate or prosecute any alcohol or drug abuse patient.[facility] Encounter Details Date Type Department Care Team (Late st Contact Info) Description 09/08/2023 Patient Msg Neurology [address] [place] [address] Provider, Ccf Consult to Movement Disorders and [facility] Religious Social History Tobacco Use Types Packs/Day Years Used Date Smoking Tobacco: Never Smokeless Tobacco: Never Alcohol Use Standard Drinks/Week Comments Yes 0 (1 standard drink = 0.6 oz pur e alcohol) rarely [facility] Utilities Answer Date Recorded In the past 12 months has th [employer] electric, gas, oil, or water company threatened [...] you attend [facility] ch or taoism services? More than 4 times per year 05/20/2023 Do you belong to any clubs o r organizations such as uatsdin groups, unions, fraternal or athletic groups, or [...] Answer Date Recorded PHQ-2 score 6 09/03/2023 [facility] of Occupat ional Health - Occupational Stress [...] slept in a prison (including now)? No 06/20/2023 Area Deprivation Index Answer Date Sergio rded National Score (1-100), lower number is lower ri sk 79 08/26/2022 State Score (1-10), lower number is lower risk 7 08/26/2022 Data from: https://www.neighborhoodatlas.medicine.[facility].edu/. Last address used for calculation [address] [...] Industry Job Start Date Job End Date [employer] Not on file Not on file Not [...] Description 09/24/2024 6:00 PM EDT [facility] Family Medicine [place] [address] [place] [address] Basim White MD [address] [place] [address] 3 month follow up 11/28/2024 9:40 AM EDT [facility] Endocrinology [address] [place] [address] [place] [address] [facility] [address] [place] [address] Type one diabetes pump and cgm follow up 12/20/2024 4:00 PM EDT [facility] [address] [place] [address] Christiana Sims PA-C 450 [place] [address] 6 Month follow up and yearly physical 03/04/2025 5:20 PM EST Office Visit [address] [address] Basim White MD [address] [place] [address] 12 month follow up documented as of [...] on filedocumented in this encounter Care Teams Car Sander Relationship Specialty Start Date End Date Basim White MD [address] [place] [address] PCP - General Family Medicine 08/09/17 Nate Joyce DO Paperhanger Supervisor 02/09/13 Paulie Sandra MD [address] [address] Primary Staff Physician Cardiology 07/04/18 Pascale Kc APRN.COUNSELOR CAMP [address] [place] [address] Senior Portfolio Manager Family [facility] 03/26/24 07/04/24 Leeanne Balderas, CHAIN MACHINE OPERATOR.COUNSELOR CAMP [address] [place] [address] Senior Portfolio Manager Family Medicine 03/26/24 07/04/24 Juanita Luong PA-C [address] [place] [address] [facility] Family [facility] 03/26/24 07/04/24 Rubi Rodriguez, ISABELLA.COUNSELOR CAMP [address] [place] [address] Senior Portfolio Manager Family Medicine 03/26/24 07/04/24 Christiana Sims PA-C [address] [place] [address] Senior Portfolio Manager Family Medicine 03/26/24 Tami Vazquez PA-C [address] [place] [address] Senior Portfolio Manager Family Medicine 06/07/24 07/04/24 Juanita Luong PA-C [id number] [place] [address] Senior Portfolio Manager Family Medicine 07/11/24 07/25/24 Awa Sanchez PA-C [address] [place] [address] Senior Portfolio Manager Internal Medicine 09/03/24 documented as of this encounter
--- OUTSIDE RECORDS SUMMARY | 2024-09-09 00:45 | XMS_ITS | Encounter Summary ---
Author Organization [facility] Address [address] [place], [place] [address] Care Team Providers Care Nursing Informatics Analyst Name Role Phone IsiahNate greenfield Unavailable [phone] Anastasia Ruiz DO Primary Care Provider Basim White MD Primary Care Provider [phone] Paulie Sandra MD Unavailable Paulie Sandra MD Unavailable Teagan Henriquez RN Unavailable Pascale Kc SECURITY ASSOCIATE.OVERNIGHT CAREGIVER Unavailable Leeanne Balderas SECURITY ASSOCIATE.OVERNIGHT CAREGIVER Unavailable [phone] Juanita Luong PA-C Unavailable Rubi Rodriguez SECURITY ASSOCIATE.OVERNIGHT CAREGIVER Unavailable Christiana Sims PA-C Unavailable Tami Vazquez PA-C Unavailable [phone] Juanita Luong PA-C Unavailable Awa Sanchez PA-C Unavailable Source Comments In the event this information is protected by the Federal Confidentiality of Alcohol and Drug AbusePatient Records regulations: The Federal rules restrict any use of the information to criminally investigate or prosecute any alcohol or drug abuse patient.[facility] Encounter Details Date Type Department Care Team (Late st Contact Info) Description 11/30/2016 Patient Msg Medical Records [address] [place] [address] [facility] Social History Tobacco Use Types Packs/Day Years [...] Industry Job Start Date Job End Date [employer] Not on file Not on file Not [...] Contact Info) Description 09/24/2024 6:00 PM EDT [address] [address] Basim White MD [address] [place] [address] 3 month follow up 11/28/2024 9:40 AM EDT [facility] Endocrinology [place] [address] [place] [address] [place] [address] [address] Type one diabetes pump and cgm follow up 12/20/2024 4:00 PM EDT [address] [address] Christiana Sims PA-C [address] [place] [address] 6 Month follow up and yearly physical 03/04/2025 5:20 PM EST Office Visit [address] [address] Basim White MD [address] [place] [address] 12 month follow up documented as of [...] documented as of this encounter Care Teams Nursing Informatics Analyst Relationship Specialty Start [place] [address] [place] [address] PCP - General Family Medicine 06/10/16 08/08/17 Basim White MD 450 [place] [address] PCP - General Family Medicine 08/09/17 Nate Joyce DO Licensed Club Manager 02/09/13 Paulie Sandra MD [address] [facility] [address] [place] [phone] Primary Staff Physician Cardiology 07/04/1807/04 Paulie Sandra MD [address] [facility] [address] [place] [phone] Primary Staff Physician Cardiology 07/04/18 Teagan Henriquez, RN 6000 [place] [address] Primary Care Tinter Photograph Internal Medicine 06/22/23 07/21/23 Pascale Kc, SECURITY ASSOCIATE.OVERNIGHT CAREGIVER [address] [place] [address] Engineering Mechanic Family Medicine 03/26/24 07/04/24 Leeanne Balderas, SECURITY ASSOCIATE.OVERNIGHT CAREGIVER [address] [place] [address] Engineering Mechanic Family Medicine 03/26/24 07/04/24 Juanita Luong PA-C [address] [place] [address] Engineering Mechanic Family Medicine 03/26/24 07/04/24 Rubi Rodriguez, SECURITY ASSOCIATE.OVERNIGHT CAREGIVER [address] [place] [address] Engineering Mechanic Family Medicine 03/26/24 07/04/24 Christiana Sims PA-C [address] [place] [address] Engineering Mechanic Family Medicine 03/26/24 Tami Vazquez PA-C [address] [place] [address] Engineering Mechanic Family Medicine 06/07/24 07/04/24 Juanita Luong PA-C [address] [place] [address] [facility] Family Medicine 07/11/24 07/25/24 Awa Snachez PA-C [address] [place] [address] [facility] Internal Medicine 09/03/24 documented as of this encounter
--- OUTSIDE RECORDS SUMMARY | 2024-09-09 00:45 | XMS_ITS | Encounter Summary ---
Author Organization [facility] Address [address] [place], [place] [address] Care Team Providers Care Screen Tacker Name Role Phone IsiahNate greenfield Cecelia OSBORNE Unavailable [phone] Basim White MD Primary Care Provider Paulie Sandra MD Unavailable Teagan Henriquez RN Unavailable Pascale Kc SR. UNIX SYSTEM ADMINISTRATOR.SCRUFF WORKER Unavailable Leeanne Balderas SR. UNIX SYSTEM ADMINISTRATOR.SCRUFF WORKER Unavailable [phone] Juanita Luong PA-C Unavailable Rubi Rodriguez SR. UNIX SYSTEM ADMINISTRATOR.SCRUFF WORKER Unavailable Christiana Sims PA-C Unavailable Tami Vazquez PA-C Unavailable [phone] Juanita Luong PA-C Unavailable Awa Sanchez PA-C Unavailable Source Comments In the event this information is protected by the Federal Confidentiality of Alcohol and Drug AbusePatient Records regulations: The Federal rules restrict any use of the information to criminally investigate or prosecute any alcohol or drug abuse patient.[facility] Encounter Details Date Type Department Care Team (Kathryn saini Contact Info) Description 11/19/2019 Patient Msg General Surgery [address] [place] [address] Provider, Ccf Consultation Order Social History Tobacco Use Types Packs/Day Years [...] often do you attend chur ch or pentecostal services? More than 4 [...] , or living with a partner? 09/29/2019 [facility] of Occupat ional Health - Occupational [...] a senior care (including now)? Patient refused 09/29/2019 Education Answer [...] Industry Job Start Date Job End Date [employer] Not on file Not on file Not [...] Contact Info) Description 09/24/2024 6:00 PM EDT [address] [address] Basim White MD [address] [place] [address] 3 month follow up 11/28/2024 9:40 AM EDT [facility] Endocrinology [place] [address] [place] [address] [place] [address] [address] Type one diabetes pump and cgm follow up 12/20/2024 4:00 PM EDT [address] [address] Christiana Sims PA-C [address] [place] [address] 6 Month follow up and yearly physical 03/04/2025 5:20 PM EST Office Visit [address] [address] Basim White MD [address] [place] [address] 12 month follow up documented as of [...] documented as of this encounter Care Teams Screen Tacker Relationship Specialty Start Date End Date Basim White MD 450 [place] [address] PCP - General Family Medicine 08/09/17 Nate Joyce DO Nurse Staff 02/09/13 Paulie Sandra MD [address] [phone] Primary Staff Physician Cardiology 07/04/18 Teagan Henriquez, RN 6[address] [place], [place] [address] Primary Care Communication And Outreach Manager Internal Medicine 06/22/23 07/21/23 Pascale Kc APRN.SCRUFF WORKER [address] [place] [address] Clinical Assistant Family Medicine 03/26/24 07/04/24 Leeanne Balderas APRN.SCRUFF WORKER [address] [place] [address] Clinical Assistant Family Medicine 03/26/24 07/04/24 Juanita uLong PA-C [address] [place] [address] Clinical Assistant Family Medicine 03/26/24 07/04/24 Rubi Rodriguez, SR. UNIX SYSTEM ADMINISTRATOR.SCRUFF WORKER [address] [place] [address] Clinical Assistant Family Medicine 03/26/24 07/04/24 Christiana Sims PA-C [address] [place] [address] Clinical Assistant Family Medicine 03/26/24 Tami Vazquez PA-C [address] [place] [address] Clinical Assistant Family Medicine 06/07/24 07/04/24 Juanita Luong PA-C [address] [place] [address] Clinical Assistant Family Medicine 07/11/24 07/25/24 Awa Sanchez PA-C [address] [place] [address] Clinical Assistant Internal Medicine 09/03/24 documented as of this encounter
--- OUTSIDE RECORDS SUMMARY | 2024-09-09 00:45 | XMS_ITS | Encounter Summary ---
Author Organization [facility] Address [address] [place], [place] [address] Care Team Providers Care Associate Media Planner Name Role Phone IsiahNate greenfield Cecelia OSBORNE Unavailable [phone] Basim White MD Primary Care Provider [phone] Paulie Sandra MD Unavailable [phone] Pascale Kc TOOL SALVAGE WORKER.DRIVER GUARD Unavailable Leeanne Balderas TOOL SALVAGE WORKER.DRIVER GUARD Unavailable [phone] Juanita Luong PA-C Unavailable Rubi Rodriguez TOOL SALVAGE WORKER.DRIVER GUARD Unavailable Christiana Sims PA-C Unavailable Tami Vazquez PA-C Unavailable [phone] Juanita Luong PA-C Unavailable Awa Sanchez PA-C Unavailable Source Comments In the event this information is protected by the Federal Confidentiality of Alcohol and Drug AbusePatient Records regulations: The Federal rules restrict any use of the information to criminally investigate or prosecute any alcohol or drug abuse patient.[facility] Encounter Details Date Type Department Care Team (Late st Contact Info) Description 04/07/2024 Patient Msg Endocrinology [place] [address] [place] [address] [place] [address] [facility] [address] [place], [place] [address] Appointment Request Social History Tobacco Use Types Packs/Day Years Used Date Smoking Tobacco: Never Smokeless Tobacco: Never Alcohol Use Standard Drinks/Week Comments Yes 0 (1 standard drink = 0.6 oz pur e alcohol) rarely [facility] Utilities Answer Date Recorded In the [...] Never 05/20/2023 How often do you attend [facility] ch or holiness services? More than 4 times per year 05/20/2023 Do you belong to any clubs o r organizations such as rastafarian groups, unions, fraternal or athletic groups, or [...] Answer Date Recorded PHQ-2 score 6 03/26/2024 [facility] of Occupat ional Health - Occupational Stress [...] place to sleep or slept in a group home (including now)? No 06/20/2023 Area Deprivation Index Answer Date Sergio rded National Score (1-100), lower number is lower ri sk 79 08/26/2022 State Score (1-10), lower number is lower risk 7 08/26/2022 Data from: https://www.neighborhoodatlas.medicine.[facility].edu/. Last address used for calculation [address] [...] Contact Info) Description 09/24/2024 6:[address] [facility] Medicine [place] [address] [place] [address] Basim White MD [address] [place] [address] 3 month follow up 11/28/2024 9:40 AM EDT [facility] Endocrinology [place] [address] [place] [address] [place] [address] [facility] [address] [place] [address] Type one diabetes pump and cgm follow up 12/20/2024 4:00 PM EDT [facility] Family Medicine [place] [address] [place] [address] Christiana Sims PA-C 450 [place] [address] 6 Month follow up and yearly physical 03/04/2025 5:20 PM EST Office Visit [facility] [address] [place] [address] Basim White MD [address] [place] [address] 12 month follow up documented as of [...] on filedocumented in this encounter Care Teams Associate Media Planner Relationship Specialty Start Date End Date Basim White MD [address] [place] [address] PCP - General Family Medicine 08/09/17 Nate Joyce DO Block Chopper Hand 02/09/13 Paulie Sandra MD [address] [address] Primary Staff Physician Cardiology 07/04/18 Pascale Kc, TOOL SALVAGE WORKER.DRIVER GUARD [address] [place] [address] [facility] 03/26/24 07/04/24 Leeanne Balderas, TOOL SALVAGE WORKER.DRIVER GUARD [address] [place] [address] [facility] Family Medicine 03/26/24 07/04/24 Juanita Luong PA-C [address] [place] [address] [facility] Family [facility] 03/26/24 07/04/24 GoRubi severino APRN.DRIVER GUARD [address] [place] [address] Department Clinician Family Medicine 03/26/24 07/04/24 Christiana Sims PA-C [address] [place] [address] Department Clinician Family Medicine 03/26/24 Tami Vazquez PA-C [address] [place] [address] Department Clinician Family Medicine 06/07/24 07/04/24 Juanita Luong PA-C [address] [place] [address] Department Clinician Family Medicine 07/11/24 07/25/24 Awa Sanchez PA-C [address] [place] [address] Department Clinician Internal Medicine 09/03/24 documented as of this encounter
--- OUTSIDE RECORDS SUMMARY | 2024-09-09 00:45 | XMS_ITS | Encounter Summary ---
Author Organization [facility] Address [address] [place], [place] [address] Care Team Providers Care Employment Officer Name Role Phone IsiahNate greenfield Cecelia OSBORNE Unavailable [phone] Basim White MD Primary Care Provider Paulie Sandra MD Unavailable [phone] Pascale Kc HOSIERY MATER.CHORAL DIRECTOR Unavailable Leeanne Balderas HOSIERY MATER.CHORAL DIRECTOR Unavailable [phone] Juanita Luong PA-C Unavailable Rubi Rodriguez HOSIERY MATER.CHORAL DIRECTOR Unavailable Christiana Sims PA-C Unavailable Tami Vazquez PA-C Unavailable [phone] Juanita Luong PA-C Unavailable Awa Sanchez PA-C Unavailable Source Comments In the event this information is protected by the Federal Confidentiality of Alcohol and Drug AbusePatient Records regulations: The Federal rules restrict any use of the information to criminally investigate or prosecute any alcohol or drug abuse patient.[facility] Encounter Details Date Type Department Care Team (Late st Contact Info) Description 03/26/2024 Patient Msg Family Medicine [place] [address] [place] [address] Provider, Ccf Virtual Visit Social History Tobacco Use Types Packs/Day Years Used Date Smoking Tobacco: Never Smokeless Tobacco: Never Alcohol Use Standard Drinks/Week Comments Yes 0 (1 standard drink = 0.6 oz pur e alcohol) rarely [facility] Utilities Answer Date Recorded In the [...] Never 05/20/2023 How often do you attend [facility] ch or samaritan services? More than 4 [...] Answer Date Recorded PHQ-2 score 6 03/26/2024 [facility] [employer] [place] of Occupat ional Health - Occupational Stress [...] place to sleep or slept in a intermediate (including now)? No 06/20/2023 Area Deprivation Index Answer Date Sergio rded National Score (1-100), lower number is lower ri sk 79 08/26/2022 State Score (1-10), lower number is lower risk 7 08/26/2022 Data from: https://www.neighborhoodatlas.medicine.[facility].edu/. Last address used for calculation [...] Industry Job Start Date Job End Date [employer] Not on file Not on file Not [...] Contact Info) Description 09/24/2024 6:00 PM EDT [facility] Family Medicine [place] [address] [place], [place] [address] Basim White MD [address] [place] [address] 3 month follow up 11/28/2024 9:40 AM EDT [facility] Endocrinology [address] [address] [place] [address] [address] Type one diabetes pump and cgm follow up 12/20/2024 4:00 PM EDT [facility] 450 [place] [address] Christiana Sims PA-C [address] [place] [address] 6 Month follow up and yearly physical 03/04/2025 5:20 PM EST Office Visit [address] [address] Basim White MD [address] [place] [address] 12 month follow up documented as of [...] on filedocumented in this encounter Care Teams Employment Officer Relationship Specialty Start Date End Date Basim White MD [address] [place] [address] PCP - General Family Medicine 08/09/17 Nate Joyce DO Contracting Specialist 02/09/13 Paulie Sandra MD [address] [phone] Primary Staff Physician Cardiology 07/04/18 Pascale Kc HOSIERY MATER.CHORAL DIRECTOR [address] [place] [address] [facility] 03/26/24 07/04/24 Leeanne Balderas, HOSIERY MATER.CHORAL DIRECTOR [address] [place] [address] [facility] Family [facility] 03/26/24 07/04/24 Juanita Luong PA-C [address] [place] [address] [facility] 03/26/24 07/04/24 Rubi Rodriguez, HOSIERY MATER.CHORAL DIRECTOR [address] [place] [address] Tester Operator Family Medicine 03/26/24 07/04/24 Christiana Sims PA-C [address] [place] [address] Tester Operator Family Medicine 03/26/24 Tami Vazquez PA-C [address] [place] [address] Tester Operator Family Medicine 06/07/24 07/04/24 Juanita Luong PA-C [address] [place] [address] Tester Operator Family Medicine 07/11/24 07/25/24 Awa Sanchez PA-C [address] [place] [address] Tester Operator Internal Medicine 09/03/24 documented as of this encounter
--- OUTSIDE RECORDS SUMMARY | 2024-09-09 00:46 | XMS_ITS | Encounter Summary ---
Author Organization [facility] Address [address] [place], [place] [address] Care Team Providers Care Aircraft Launch And Recovery Technician Name Role Phone IsiahNate greenfield Cecelia OSBORNE Unavailable [phone] Basim White MD Primary Care Provider [phone] Paulie Sandra MD Unavailable [employer] FIRE CLAIMS ADJUSTER.INSIDE SALES MANAGER Unavailable Leeanne Balderas FIRE CLAIMS ADJUSTER.INSIDE SALES MANAGER Unavailable [phone] Juanita Luong PA-C Unavailable Rubi Rodriguez FIRE CLAIMS ADJUSTER.INSIDE SALES MANAGER Unavailable Christiana Sims PA-C Unavailable Tami Vazquez PA-C Unavailable [phone] Juanita Luong PA-C Unavailable Awa Sanchez PA-C Unavailable Source Comments In the event this information is protected by the Federal Confidentiality of Alcohol and Drug AbusePatient Records regulations: The Federal rules restrict any use of the information to criminally investigate or prosecute any alcohol or drug abuse patient.[facility] Encounter Details Date Type Department Care Team (Late st Contact Info) Description 04/19/2024 Patient Msg Neurology [address] [place] [address] Provider, Ccf Please Confirm Your Sleep Study Scheduled For 04/25/24 Social History Tobacco Use Types Packs/Day Years Used Date Smoking Tobacco: Never Smokeless Tobacco: Never Alcohol Use Standard Drinks/Week Comments Yes 0 (1 standard drink = 0.6 oz pur e alcohol) rarely [facility] Utilities Answer Date Recorded In the past 12 months has [employer] electric, gas, oil, or water company threatened [...] Never 05/20/2023 How often do you attend [facility] ch or mu-ism services? More than 4 times per year 05/20/2023 Do you belong to any clubs o r organizations such as latter-day groups, unions, fraternal or athletic groups, or [...] Answer Date Recorded PHQ-2 score 6 03/26/2024 [facility] [place] of Occupat ional Health - Occupational Stress [...] Data from: https://www.neighborhoodatlas.medicine.[facility].edu/. 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 on file Not [...] Info) Description 09/24/2024 6:00 PM EDT [facility] [place] [address] [place] [address] Basim White MD [address] [place] [address] 3 month follow up 11/28/2024 9:40 AM EDT [facility] [place] [address] [place] [address] [place] [address] [facility] [address] [place] [address] Type one diabetes pump and cgm follow up 12/20/2024 4:00 PM EDT [facility] [address] [place] [address] Christiana Sims PA-C 450 [place] [address] 6 Month follow up and yearly physical 03/04/2025 5:20 PM EST Office Visit [address] [address] Basim White MD [address] [place] [address] 12 month follow up documented as of [...] on filedocumented in this encounter Care Teams Aircraft Launch And Recovery Technician Relationship Specialty Start Date End Date Basim White MD [address] [place] [address] PCP - General Family Medicine 08/09/17 Nate Joyce DO Candy Counter Clerk 02/09/13 Paulie Sandra MD [address] [address] Primary Staff Physician Cardiology 07/04/18 [employer] APRN.INSIDE SALES MANAGER [address] [place] [address] Contract Administration Coordinator Family [facility] 03/26/24 07/04/24 Leeanne Balderas, FIRE CLAIMS ADJUSTER.INSIDE SALES MANAGER [address] [place] [address] Contract Administration Coordinator Family Medicine 03/26/24 07/04/24 Juanita Luong PA-C [address] [place] [address] [facility] Family [facility] 03/26/24 07/04/24 Rubi Rodriguez, ISABELLA.INSIDE SALES MANAGER [address] [place] [address] Contract Administration Coordinator Family Medicine 03/26/24 07/04/24 Christiana Sims PA-C [address] [place] [address] Contract Administration Coordinator Family Medicine 03/26/24 Tami Vazquez PA-C [address] [place] [address] Contract Administration Coordinator Family Medicine 06/07/24 07/04/24 Juanita Luong PA-C [id number] [place] [address] Contract Administration Coordinator Family Medicine 07/11/24 07/25/24 Awa Sanchez PA-C [address] [place] [address] Contract Administration Coordinator Internal Medicine 09/03/24 documented as of this encounter
--- OUTSIDE RECORDS SUMMARY | 2024-09-09 00:46 | XMS_ITS | Encounter Summary ---
Author Organization [facility] Address [address] [place], [place] [address] Care Team Providers Care Boat Joiner Name Role Phone IsiahNate greenfield Cecelia OSBORNE Unavailable [phone] Basim White MD Primary Care Provider Paulie Sandra MD Unavailable [employer] STUDENT NURSE.OPTICAL INSTRUMENT REPAIRER Unavailable Leeanne Balderas STUDENT NURSE.OPTICAL INSTRUMENT REPAIRER Unavailable [phone] Juanita Luong PA-C Unavailable Rubi Rodriguez STUDENT NURSE.OPTICAL INSTRUMENT REPAIRER Unavailable Christiana Sims PA-C Unavailable Tami Vazquez PA-C Unavailable [phone] Juanita Luong PA-C Unavailable Awa Sanchez PA-C Unavailable Source Comments In the event this information is protected by the Federal Confidentiality of Alcohol and Drug AbusePatient Records regulations: The Federal rules restrict any use of the information to criminally investigate or prosecute any alcohol or drug abuse patient.[facility] Encounter Details Date Type Department Care Team (Late st Contact Info) Description 12/22/2023 Get Medical Advice Family Medicine [place] [address] [place], [place] [phone] Basim White MD 450 [place], [place] [id number] Tooth pain Social History Tobacco Use Types Packs/Day Years Used Date Smoking Tobacco: Never Smokeless Tobacco: Never Alcohol Use Standard Drinks/Week Comments Yes 0 (1 standard drink = 0.6 oz pur e alcohol) rarely [facility] Utilities Answer Date Recorded In the [...] Never 05/20/2023 How often do you attend [facility] or confucianist services? More than 4 times per year 05/20/2023 Do you belong to any clubs o r organizations such as jew groups, unions, fraternal or athletic groups, or [...] PHQ-2 Answer Date Recorded PHQ-2 score 6 11/14/2023 [facility] [place] of Occupat ional Health - Occupational Stress [...] is lower risk 7 08/26/2022 Data from: https://www.neighborhoodatlas.medicine.[facility].edu/. 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 Not [...] Description 09/24/2024 6:00 PM EDT [facility] [place] [address] [place] [address] Basim White MD [address] [place] [address] 3 month follow up 11/28/2024 9:40 AM EDT [facility] [place] [address] [place] [address] [place] [address] [facility] [address] [place] [address] Type one diabetes pump and cgm follow up 12/20/2024 4:00 PM EDT [facility] [place] [address] [place] [address] Christiana Sims PA-C [address] [place] [address] 6 Month follow up and yearly physical 03/04/2025 5:20 PM EST Office Visit [address] [address] Basim White MD [address] [place] [address] 12 month follow up documented as of [...] on filedocumented in this encounter Care Teams Boat Joiner Relationship Specialty Start Date End Date Basim White MD [address] [place] [address] PCP - General Family Medicine 08/09/17 Nate Joyce DO Insurance Broker 02/09/13 Paulie Sandra MD [address] [address] Primary Staff Physician Cardiology 07/04/18 [employer], STUDENT NURSE.OPTICAL INSTRUMENT REPAIRER [address] [place] [address] [facility] Family [facility] 03/26/24 07/04/24 Leeanne Balderas, STUDENT NURSE.OPTICAL INSTRUMENT REPAIRER [address] [place] [address] [facility] Family Medicine 03/26/24 07/04/24 Juanita Luong PA-C [address] [place] [address] [facility] Family Medicine 03/26/24 07/04/24 Rubi Rodriguez APRN.OPTICAL INSTRUMENT REPAIRER [address] [place] [address] Seat Pack Inspector Family Medicine 03/26/24 07/04/24 Christiana Sims PA-C [address] [place] [address] Seat Pack Inspector Family Medicine 03/26/24 Tami Vazquez PA-C [address] [place] [address] Seat Pack Inspector Family Medicine 06/07/24 07/04/24 Juanita Luong PA-C [address] [place] [address] Seat Pack Inspector Family Medicine 07/11/24 07/25/24 Awa Sanchez PA-C [address] [place] [address] Seat Pack Inspector Internal Medicine 09/03/24 documented as of this encounter
--- OUTSIDE RECORDS SUMMARY | 2024-09-09 00:46 | XMS_ITS | Encounter Summary ---
Author Organization [facility] Address [address] [place], [place] [address] Care Team Providers Care Manager Graphic Name Role Phone IsiahNate greenfield Cecelia OSBORNE Unavailable [phone] Basim White MD Primary Care Provider [phone] Paulie Sandra MD Unavailable [employer] REGISTERED PHARMACY TECHNICIAN.INDUSTRIAL ORGANIZATION MANAGER Unavailable Leeanne Balderas REGISTERED PHARMACY TECHNICIAN.INDUSTRIAL ORGANIZATION MANAGER Unavailable [phone] Juanita Luong PA-C Unavailable Rubi Rodriguez REGISTERED PHARMACY TECHNICIAN.INDUSTRIAL ORGANIZATION MANAGER Unavailable Christiana Sims PA-C Unavailable Tami Vazquez PA-C Unavailable [phone] Juanita Luong PA-C Unavailable Awa Sanchez PA-C Unavailable Source Comments In the event this information is protected by the Federal Confidentiality of Alcohol and Drug AbusePatient Records regulations: The Federal rules restrict any use of the information to criminally investigate or prosecute any alcohol or drug abuse patient.[facility] Encounter Details Date Type Department Care Team (Late st Contact Info) Description 05/15/2024 Patient Msg Family Medicine [place] [address] [place], [place] [id number] Basim White MD 450 [place], [place] [phone] Update Social History Tobacco Use Types Packs/Day Years Used Date Smoking Tobacco: Never Smokeless Tobacco: Never Alcohol Use Standard Drinks/Week Comments Yes 0 (1 standard drink = 0.6 oz pur e alcohol) rarely [facility] Utilities Answer Date Recorded [...] How often do you attend [facility] ch or restoration services? More than 4 times [...] 06/20/2023 PHQ-2 Answer Date Recorded PHQ-2 score 2 05/14/2024 [facility] [place] of Occupat ional Health - Occupational Stress [...] is lower risk 7 08/26/2022 Data from: https://www.neighborhoodatlas.medicine.[facility].edu/. 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 Not on file Not [...] Contact Info) Description 09/24/2024 6:00 PM EDT [facility] Medicine [place] [address] [place], [place] [id number] Basim White MD [address] [place] [address] 3 month follow up 11/28/2024 9:40 AM EDT [facility]ocrinology [place] [address] [place] [address] [place] [address] [facility] [address] [place] [address] Type one diabetes pump and cgm follow up 12/20/2024 4:00 PM EDT [facility] [place] 450 [place] [address] Christiana Sims PA-C [address] [place] [address] 6 Month follow up and yearly physical 03/04/2025 5:20 PM EST Office Visit [address] [address] Basim White MD [address] [place] [address] 12 month follow up documented as of [...] on filedocumented in this encounter Care Teams Manager Graphic Relationship Specialty Start Date End Date Basim White MD [address] [place] [address] PCP - General Family Medicine 08/09/17 Nate Joyce DO Piece Cutter 02/09/13 Paulie Sandra MD [address] [address] Primary Staff Physician Cardiology 07/04/18 [employer] Kc APRN.INDUSTRIAL ORGANIZATION MANAGER [address] [place] [address] [facility] 03/26/24 07/04/24 Leeanne Balderas APRN.INDUSTRIAL ORGANIZATION MANAGER [address] [place] [address] [facility] 03/26/24 07/04/24 Juanita Luong PA-C [address] [place] [address] [facility] 03/26/24 07/04/24 Rubi Rodriguez, ISABELLA.INDUSTRIAL ORGANIZATION MANAGER [address] [place] [address] Traffic Operations Engineer Family Medicine 03/26/24 07/04/24 Christiana Sims PA-C [address] [place] [address] Traffic Operations Engineer Family Medicine 03/26/24 Tami Vazquez PA-C [address] [place] [address] Traffic Operations Engineer Family Medicine 06/07/24 07/04/24 Juanita Luong PA-C [address] [place] [address] Traffic Operations Engineer Family Medicine 07/11/24 07/25/24 Awa Sanchez PA-C [address] [place] [address] Traffic Operations Engineer Internal Medicine 09/03/24 documented as of this encounter
--- OUTSIDE RECORDS SUMMARY | 2024-09-09 00:46 | XMS_ITS | Encounter Summary ---
Author Organization [facility] Address [address] [place], [place] [address] Care Team Providers Care Pipeliner Name Role Phone IsiahNate greenfield Cecelia OSBORNE Unavailable [phone] Basim White MD Primary Care Provider [phone] Paulie Sandra MD Unavailable [employer] PHYSICIAN PRACTICE MANAGER.MEDICAL CLERICAL ASSISTANT Unavailable Leeanne Balderas PHYSICIAN PRACTICE MANAGER.MEDICAL CLERICAL ASSISTANT Unavailable [phone] Juanita Luong PA-C Unavailable Rubi Rodriguez PHYSICIAN PRACTICE MANAGER.MEDICAL CLERICAL ASSISTANT Unavailable Christiana Sims PA-C Unavailable Tami Vazquez PA-C Unavailable [phone] Juanita Luong PA-C Unavailable Awa Sanchez PA-C Unavailable Source Comments In the event this information is protected by the Federal Confidentiality of Alcohol and Drug AbusePatient Records regulations: The Federal rules restrict any use of the information to criminally investigate or prosecute any alcohol or drug abuse patient.[facility] Encounter Details Date Type Department Care Team (Late st Contact Info) Description 11/16/2023 Patient Msg Neurology [address] [place] [address] Provider, Ccf Sleep Study Social History Tobacco Use Types Packs/Day Years Used Date Smoking Tobacco: Never Smokeless Tobacco: Never Alcohol Use Standard Drinks/Week Comments Yes 0 (1 standard drink = 0.6 oz pur e alcohol) rarely [facility] Utilities Answer Date Recorded In [...] Never 05/20/2023 How often do you attend [facility] or advent services? More than 4 times per year 05/20/2023 Do you belong to any clubs o r organizations such as episcopalian groups, unions, fraternal or athletic groups, or [...] Answer Date Recorded PHQ-2 score 6 11/14/2023 [facility] [place] of Occupat ional Health - Occupational Stress [...] is lower risk 7 08/26/2022 Data from: https://www.neighborhoodatlas.medicine.[facility].edu/. 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 on file [...] Contact Info) Description 09/24/2024 6:00 PM EDT [facility] [place] [address] [place], [place] [address] Basim White MD [address] [place] [address] 3 month follow up 11/28/2024 9:40 AM EDT [facility] Endocrinology [address] [address] [place] [address] [facility] [address] [place] [address] Type one diabetes pump and cgm follow up 12/20/2024 4:00 PM EDT [facility] [address] [place] [address] Christiana Sims PA-C 450 [place] [address] 6 Month follow up and yearly physical 03/04/2025 5:20 PM EST Office Visit [facility] [address] [place] [address] Basim White MD 450 [place] [address] 12 month follow up documented as of [...] on filedocumented in this encounter Care Teams Pipeliner Relationship Specialty Start Date End Date Basim White MD [address] [place] [address] PCP - General Family Medicine 08/09/17 Nate Joyce DO Soil Science Professor 02/09/13 Paulie Sandra MD [address] [phone] Primary Staff Physician Cardiology 07/04/18 [employer] Kc, PHYSICIAN PRACTICE MANAGER.MEDICAL CLERICAL ASSISTANT [address] [place] [address] [facility] 03/26/24 07/04/24 Leeanen Balderas, PHYSICIAN PRACTICE MANAGER.MEDICAL CLERICAL ASSISTANT [address] [place] [address] [facility] 03/26/24 07/04/24 Juanita Luong PA-C [address] [place] [address] [facility] 03/26/24 07/04/24 Rubi Rodriguez, PHYSICIAN PRACTICE MANAGER.MEDICAL CLERICAL ASSISTANT [address] [place] [address] Studio Operations Manager Family Medicine 03/26/24 07/04/24 Christiana Sims PA-C [address] [place] [address] Studio Operations Manager Family Medicine 03/26/24 Tami Vazquez PA-C [address] [place] [address] Studio Operations Manager Family Medicine 06/07/24 07/04/24 Juanita Luong PA-C [address] [place] [address] Studio Operations Manager Family Medicine 07/11/24 07/25/24 Awa Sanchez PA-C [address] [place] [address] Studio Operations Manager Internal Medicine 09/03/24 documented as of this encounter
--- OUTSIDE RECORDS SUMMARY | 2024-09-09 00:46 | XMS_ITS | Encounter Summary ---
Author Organization [facility] Address [address] [place], [place] [address] Care Team Providers Care Ornamenter Name Role Phone IsiahNate greenfield Cecelia OSBORNE Unavailable [phone] Basim White MD Primary Care Provider Paulie Sandra MD Unavailable [employer] CONSERVATION SCIENTIST.OPERATIONS SUPPORT COORDINATOR Unavailable Leeanne Balderas CONSERVATION SCIENTIST.OPERATIONS SUPPORT COORDINATOR Unavailable [phone] Juanita Luong PA-C Unavailable Rubi Rodriguez CONSERVATION SCIENTIST.OPERATIONS SUPPORT COORDINATOR Unavailable Christiana Sims PA-C Unavailable Tami Vazquez PA-C Unavailable [phone] Juanita Luong PA-C Unavailable Awa Sanchez PA-C Unavailable Source Comments In the event this information is protected by the Federal Confidentiality of Alcohol and Drug AbusePatient Records regulations: The Federal rules restrict any use of the information to criminally investigate or prosecute any alcohol or drug abuse patient.[facility] Encounter Details Date Type Department Care Team (Late st Contact Info) Description 10/21/2023 Patient Msg Internal Medicine [place] [address] [place] [address] Provider, Ccf appointment Social History Tobacco Use Types Packs/Day Years [...] Never 05/20/2023 How often do you attend [facility] or judaism services? More than 4 times per year [...] Answer Date Recorded PHQ-2 score 6 09/03/2023 [facility] [place] of Occupat ional Health - Occupational Stress [...] is lower risk 7 08/26/2022 Data from: https://www.neighborhoodatlas.medicine.[facility].edu/. 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 on file [...] Info) Description 09/24/2024 6:00 PM EDT [facility] Family Medicine [place] [address] [place], [place] [address] Basim White MD 450 [place] [address] 3 month follow up 11/28/2024 9:40 AM EDT [facility] Endocrinology [address] [address] [place] [address] [address] Type one diabetes pump and cgm follow up 12/20/2024 4:00 PM EDT [facility] [address] [place] [address] Christiana Sims PA-C 450 [place] [address] 6 Month follow up and yearly physical 03/04/2025 5:20 PM EST Office Visit [address] [address] Basim White MD [address] [place] [address] 12 month follow up documented as of [...] on filedocumented in this encounter Care Teams Ornamenter Relationship Specialty Start Date End Date Basim White MD [address] [place] [address] PCP - General Family Medicine 08/09/17 Nate Joyce DO Board Filler 02/09/13 Paulie Sandra MD [address] [phone] Primary Staff Physician Cardiology 07/04/18 Pascale Kc CONSERVATION SCIENTIST.OPERATIONS SUPPORT COORDINATOR [address] [place] [address] [facility] 03/26/24 07/04/24 Leeanne Balderas, CONSERVATION SCIENTIST.OPERATIONS SUPPORT COORDINATOR [address] [place] [address] [facility] Family [facility] 03/26/24 07/04/24 Juanita Luong PA-C [address] [place] [address] [facility] 03/26/24 07/04/24 Rubi Rodriguez, CONSERVATION SCIENTIST.OPERATIONS SUPPORT COORDINATOR [address] [place] [address] Housing Project Manager Family Medicine 03/26/24 07/04/24 Christiana Sims PA-C [address] [place] [address] Housing Project Manager Family Medicine 03/26/24 Tami Vazquez PA-C [address] [place] [address] Housing Project Manager Family Medicine 06/07/24 07/04/24 Juanita Luong PA-C [address] [place] [address] Housing Project Manager Family Medicine 07/11/24 07/25/24 Awa Sanchez PA-C [address] [place] [address] Housing Project Manager Internal Medicine 09/03/24 documented as of this encounter
--- OUTSIDE RECORDS SUMMARY | 2024-09-09 00:46 | XMS_ITS | Encounter Summary ---
Author Organization [facility] Address [address] [place], [place] [address] Care Team Providers Care Intranet Specialist Name Role Phone Nate Joyce DO Unavailable [phone] Mariam Cruz MD Primary Care Provider Morena Jara RN Unavailable [phone] Basim Cavazos Primary Care Provider Unavailabl e Pcp, No SHIP'S CAPTAIN Primary Care Provider Unavailabl e Anastasia Ruiz DO Primary Care Provider Basim White MD Primary Care Provider [phone] Paulie Sandra MD Unavailable Paulie Sandra MD Unavailable Teagan Henriquez RN Unavailable Pascale Kc SHIP'S CAPTAIN.AIRBORNE SENSOR SPECIALIST Unavailable Leeanne Balderas SHIP'S CAPTAIN.AIRBORNE SENSOR SPECIALIST Unavailable Juanita Luong PA-C Unavailable Rubi Rodriguez SHIP'S CAPTAIN.AIRBORNE SENSOR SPECIALIST Unavailable Christiana Sims PA-C Unavailable Tami Vazquez PA-C Unavailable [phone] Juanita Luong PA-C Unavailable Awa Sanchez PA-C Unavailable Source Comments In the event this information is protected by the Federal Confidentiality of Alcohol and Drug AbusePatient Records regulations: The Federal rules restrict any use of the information to criminally investigate or prosecute any alcohol or drug abuse patient.[facility] Encounter Details Date Type Department Care Team (Late st Contact Info) Description 05/31/2014 Patient Msg Medical Records [address] [place] [address] Provider, Ccf Blood sugars Social History Tobacco Use Types Packs/Day Years [...] Industry Job Start Date Job End Date [employer] Not on file Not on file Not on file documented as of this encounter Functional Status * Are you deaf or do you have serious difficulty hearing? Answer Date of Assessment Author No 05/06/2014 1:38 PM Shilpa Montes De Oca MA * Are you blind or do you have serious difficulty seeing, even when wearing glasses? Answer Date of Assessment Author No 05/06/2014 1:38 PM Shilpa Montes De Oca MA * Do you have serious difficulty walking or climbing stairs? Answer Date of Assessment Author No 05/06/2014 1:38 PM Shilpa Montes De Oca MA * Do you have difficulty dressing or bathing? Answer Date of Assessment Author No 05/06/2014 1:38 PM Shilpa Montes De Oca MA * Because of a physical, mental, or emotional condition, do you have difficulty doing errands alone such as visiting a doctor's office or shopping? Answer Date of Assessment Author No 05/06/2014 1:38 PM EST Shilpa Westbrook MA documented as of this encounter Mental Status * Because of a physical, mental, or emotional condition, do you have serious difficulty concentrating, remembering, or making decisions? Answer Entry Date Author No 05/06/2014 1:38 PM Shilpa Montes De Oca MA documented in this encounter Plan of Treatment Upcoming Encounters Date Type Department Care Team (Latest Contact Info) Description 09/24/2024 6:00 PM EDT [address] [address] Basim White MD [address] [place] [address] 3 month follow up 11/28/2024 9:40 AM EDT [facility] Endocrinology [place] [address] [place] [address] [place] [address] [address] Type one diabetes pump and cgm follow up 12/20/2024 4:00 PM EDT [address] [address] Christiana Sims PA-C [address] [place] [address] 6 Month follow up and yearly physical 03/04/2025 5:20 PM EST Office Visit [address] [address] Basim White MD [address] [place] [address] 12 month follow up documented as of [...] documented as of this encounter Care Teams Intranet Specialist Relationship Specialty Start Date End Date Mariam Cruz MD [address] [place] [address] PCP - General Family Medicine 02/09/13 03/08/16 Basim Cavazos PCP - General 03/09/16 04/14/16 Pcp, Karmen, ISABELLA PCP - General 04/15/16 06/09/16 [place] [address] [place] [address] PCP - General Family Medicine 06/10/16 08/08/17 Basim White MD [address] [place] [address] PCP - General Family Medicine 08/09/17 Nate Joyce DO Audio Director 02/09/13 Morena Jara, RN [address] [place] [address] Specialty Cage Tender Endocrinology 06/08/13 04/04/16 Paulie Sandra MD [address] [facility] [address] [place] [phone] Primary Staff Physician Cardiology 07/04/1807/04 Paulie Sandra MD [address] [facility] [address] [place] [phone] Primary Staff Physician Cardiology 07/04/18 Teagan Henriquez, JIE [address] [place] [address] Primary Care Program Facilitator Internal Medicine 06/22/23 07/21/23 Pascale Kc, SHIP'S CAPTAIN.AIRBORNE SENSOR SPECIALIST [address] [place] [address] Kiln Door Repairer Family Medicine 03/26/24 07/04/24 Leeanne Balderas, SHIP'S CAPTAIN.AIRBORNE SENSOR SPECIALIST [address] [place] [address] Kiln Door Repairer Family Medicine 03/26/24 07/04/24 Juanita Luong PA-C [address] [place] [address] Kiln Door Repairer Family Medicine 03/26/24 07/04/24 Rubi Rodriguez APRN.[facility] [address] [place] [address] Kiln Door Repairer Family Medicine 03/26/24 07/04/24 Christiana Sims PA-C [address] [place] [address] Kiln Door Repairer Family Medicine 03/26/24 Tami Vazquez PA-C [address] [place] [address] Kiln Door Repairer Family Medicine 06/07/24 07/04/24 Juanita Luong PA-C [address] [place] [address] Kiln Door Repairer Family Medicine 07/11/24 07/25/24 Awa Sanchez PA-C [address] [place] [address] Kiln Door Repairer Internal Medicine 09/03/24 documented as of this encounter
--- OUTSIDE RECORDS SUMMARY | 2024-09-09 00:46 | XMS_ITS | Encounter Summary ---
Author Organization [facility] Address [address] [place], [place] [address] Care Team Providers Care Die Operator Name Role Phone IsiahNate greenfield Cecelia OSBORNE Unavailable [phone] Basim Navarro MD Primary Care Provider Paulie Sandra MD Unavailable Pascale Kc RAILROAD SIGNAL AND SWITCH OPERATOR.ACCOUNTS PAYABLE CLERK Unavailable Leeanne Balderas RAILROAD SIGNAL AND SWITCH OPERATOR.ACCOUNTS PAYABLE CLERK Unavailable [phone] Juanita Luong PA-C Unavailable Rubi Rodriguez RAILROAD SIGNAL AND SWITCH OPERATOR.ACCOUNTS PAYABLE CLERK Unavailable Christiana Sims PA-C Unavailable Tami Vazquez PA-C Unavailable [phone] Juanita Luong PA-C Unavailable Awa Sanchez PA-C Unavailable Source Comments In the event this information is protected by the Federal Confidentiality of Alcohol and Drug AbusePatient Records regulations: The Federal rules restrict any use of the information to criminally investigate or prosecute any alcohol or drug abuse patient.[facility] Reason for Visit * Reason Onset Date Comments Refill Request 02/08/2024 Encounter Details Date Type Department Care Team (Kathryn saini Contact Info) Description 02/08/2024 Refill Family Medicine [place] [address] [place] [address] Christiana Sims PA-C [address] [place], [place] [id number] Refill Request Social History Tobacco Use Types Packs/Day Years Used Date Smoking Tobacco: Never Smokeless Tobacco: Never Alcohol Use Standard Drinks/Week Comments Yes 0 (1 standard drink = 0.6 oz pur e alcohol) rarely [facility] Utilities Answer Date Recorded In the [...] Never 05/20/2023 How often do you attend [facility] or yazidi services? More than 4 times per year 05/20/2023 Do you belong to any clubs o r organizations such as taoist groups, unions, fraternal or athletic groups, or [...] PHQ-2 Answer Date Recorded PHQ-2 score 6 01/09/2024 [facility] of Occupat ional Health - Occupational Stress [...] place to sleep or slept in a longterm (including now)? No 06/20/2023 Area Deprivation Index Answer Date Sergio rded National Score (1-100), lower number is lower ri sk 79 08/26/2022 State Score (1-10), lower number is lower risk 7 08/26/2022 Data from: https://www.neighborhoodatlas.medicine.[facility].edu/. Last address used for calculation [...] Start Date Job End Date [employer] Not on file Not on file Not [...] Notes * Telephone Encounter - Basim Navarro MD - 02/09/2024 1:46 PM EDT OARRS website checked and validated No suspicious or unusual activity noted.- February 09, 2024 by Basim Navarro MD Patient's request for medication is as follows: Requested Prescriptions Signed Prescriptions Disp Refills diazePAM (VALIUM) 5 mg tablet 60 tablet 2 Sig: Take 1 tablet by mouth every 12 hours as needed for up to 90 days. Patient should start on February 15, 2024. Authorizing Provider: BASIM NAVARRO MD * Telephone Encounter - Elizabeth Kelly MA - 02/08/2024 3:31 PM EDT Patient has been identified by name and date of : Yes Patient phones requesting refills as follows: Requested Prescriptions Pending Prescriptions Disp Refills diazePAM (VALIUM) 5 mg tablet 60 tablet 2 Sig: Take 1 tablet by mouth every 12 hours as needed for up to 90 days. Last appointment: 01/13/2024 Next scheduled appointment: Appointments for Next 60 Days Date Time Provider Location Dept Phone 02/08/2024 8:30 AM GAMMA3 Molecular Im [phone] 02/15/2024 1:00 PM CARD INJECTION Molecular [facility] [phone] 02/15/2024 2:00 PM CARD NUCLEAR STRESS TESTS Mn J Bldg [phone] 02/21/2024 2:00 PM JIM GREGORIO Rej [phone] 02/28/2024 8:00 AM [facility] IM[facility]ING [facility] [phone] 03/07/2024 4:30 PM TELLO CONTRERAS Rej [phone] 03/28/2024 1:40 PM JARRED DUPONT [facility] [phone] RX INSTRUCTIONS: Respond to pharmacy only and close encounter Elizabeth Kelly MA documented in this encounter Plan of Treatment Upcoming Encounters Date Type Department Care Team (Latest Contact Info) Description 09/24/2024 6:00 PM EDT [facility] [address] [place], [place] [id number] Basim Navarro MD [address] [place], [place] [phone] 3 month follow up 11/28/2024 9:40 AM EDT [facility] Endocrinology [place] [address] [place] [address] [place] [address] [facility] [address] [place] [address] Type one diabetes pump and cgm follow up 12/20/2024 4:00 PM EDT [facility] Family Medicine [place] [address] [place] [address] Christiana Sims PA-C [address] [place] [address] 6 Month follow up and yearly physical 03/04/2025 5:20 PM EST Office Visit [address] [address] Basim Navarro MD [address] [place] [address] 12 month follow up documented as of [...] classified documented in this encounter Care Teams Die Operator Relationship Specialty Start Date End Date Basim Navarro MD [address] [place] [address] PCP - General Family Medicine 08/09/17 Nate Joyce DO Power Truck Driver 02/09/13 Paulie Sandra MD [address] [phone] Primary Staff Physician Cardiology 07/04/18 Pascale Kc, RAILROAD SIGNAL AND SWITCH OPERATOR.ACCOUNTS PAYABLE CLERK [address] [place] [address] [facility] 03/26/24 07/04/24 Leeanne Balderas, RAILROAD SIGNAL AND SWITCH OPERATOR.ACCOUNTS PAYABLE CLERK [address] [place] [address] [facility] 03/26/24 07/04/24 Juanita Luong PA-C [address] [place] [address] Program Or Project Administrator Family Medicine 03/26/24 07/04/24 Rubi Rodriguez APRN.ACCOUNTS PAYABLE CLERK [address] [place] [address] Program Or Project Administrator Family Medicine 03/26/24 07/04/24 Christiana Sims PA-C [address] [place] [address] Program Or Project Administrator Family Medicine 03/26/24 Tami Vazquez PA-C [address] [place] [address] Program Or Project Administrator Family Medicine 06/07/24 07/04/24 Juanita Luong PA-C [address] [place] [address] Program Or Project Administrator Family Medicine 07/11/24 07/25/24 Awa Sanchez PA-C [address] [place] [id number] [facility] Internal Medicine 09/03/24 documented as of this encounter
--- OUTSIDE RECORDS SUMMARY | 2024-09-09 00:46 | XMS_ITS | Encounter Summary ---
Author Organization [facility] Address [address] [place], [place] [address] Care Team Providers Care Tool And Die Engineer Name Role Phone IsiahNate greenfield Cecelia OSBORNE Unavailable [phone] Basim White MD Primary Care Provider Paulie Sandra MD Unavailable [phone] Teagan Henriquez RN Unavailable Pascale Kc STEEL DETAILER.ESTIMATION MANAGER Unavailable Leeanne Balderas STEEL DETAILER.ESTIMATION MANAGER Unavailable [phone] Juanita Luong PA-C Unavailable Rubi Rodriguez STEEL DETAILER.ESTIMATION MANAGER Unavailable Christiana Sims PA-C Unavailable Tami Vazquez PA-C Unavailable [phone] Juanita Luong PA-C Unavailable Awa Sanchez PA-C Unavailable Source Comments In the event this information is protected by the Federal Confidentiality of Alcohol and Drug AbusePatient Records regulations: The Federal rules restrict any use of the information to criminally investigate or prosecute any alcohol or drug abuse patient.[facility] Encounter Details Date Type Department Care Team (Latest Contact Info) Description 10/30/2021 Patient Msg Family Medicine [facility] [place] [address] [place] [address] Provider, Ccf Doctor recommendations Social History Tobacco Use Types Packs/Day Years [...] How often do you attend chur or restorationism services? More than 4 times per year 09/29/2019 Do you belong to any clubs o r organizations such as judaism groups, unions, fraternal or athletic groups, or school groups? No 09/29/2019 How often do you attend meet ings of the clubs or organizations you belong to? Never 09/29/2019 Are you , , di vorced, , never , or living with a partner? 09/29/2019 PHQ-2 Answer Date Recorded PHQ-2 score 5 03/03/2021 [facility] of Occupat ional [facility] - Occupational Stress Questionnaire Answer Date Recorded [...] in a care home (including now)? No 03/03/2021 Area Deprivation Index Answer Date Sergio rded National Score (1-100), lower number is lower ri sk 70 10/14/2021 State Score (1-10), lower number is lower risk N ot on file 10/14/2021 Data from: https://www.neighborhoodatlas.medicine.[facility]/. Last address used for calculation [address] 10/14/2021 Education Answer Date Recorded What is the [...] Industry Job Start Date Job End Date [employer] Not on file Not on file Not on file disability since 07/2015 (off work since 11/2013) Not on file Not on file Not on file COVID-19 Exposure Response Date Recorded In the last 10 days, have yo u been in contact with someone who was confirmed or suspected to have Coronavirus/COVID-19? No / Unsure 10/30/2021 3:31 PM EDT documented as of this encounter [...] Contact Info) Description 09/24/2024 6:00 PM EDT [address] [address] Basim White MD [address] [place] [address] 3 month follow up 11/28/2024 9:40 AM EDT [facility] Endocrinology [place] [address] [place] [address] [place] [address] [address] Type one diabetes pump and cgm follow up 12/20/2024 4:00 PM EDT [address] [address] Christiana Sims PA-C [address] [place] [address] 6 Month follow up and yearly physical 03/04/2025 5:20 PM EST Office Visit [address] [address] Basim White MD [address] [place] [address] 12 month follow up documented as of [...] on filedocumented in this encounter Care Teams Tool And Die Engineer Relationship Specialty Start Date End Date Basim White MD [address] [place] [address] PCP - General Family Medicine 08/09/17 Nate Joyce DO Local Company Hazmat Driver 02/09/13 Paulie Sandra MD [address] [phone] Primary Staff Physician Cardiology 07/04/18 Teagan Henriquez, RN [address] [place] [phone] Primary Care Canvassing Manager Internal Medicine 06/22/23 07/21/23 Pascale Kc, STEEL DETAILER.ESTIMATION MANAGER [id number] [place] [address] Children Librarian Family Medicine 03/26/24 07/04/24 Leeanne Balderas, STEEL DETAILER.ESTIMATION MANAGER [address] [place] [address] Children Librarian Family Medicine 03/26/24 07/04/24 Juanita Luong PA-C [address] [place] [address] Children Librarian Family Medicine 03/26/24 07/04/24 Rubi Rodriguez, STEEL DETAILER.ESTIMATION MANAGER [address] [place] [address] Children Librarian Family Medicine 03/26/24 07/04/24 Christiana Sims PA-C [address] [place] [address] Children Librarian Family Medicine 03/26/24 Tami Vazquez PA-C [id number] [place] [address] Children Librarian Family Medicine 06/07/24 07/04/24 Juanita Luong PA-C [id number] [place] [address] Children Librarian Family Medicine 07/11/24 07/25/24 Awa Sanchez PA-C [address] [place] [address] Children Librarian Internal Medicine 09/03/24 documented as of this encounter
--- OUTSIDE RECORDS SUMMARY | 2024-09-09 00:46 | XMS_ITS | Encounter Summary ---
Author Organization [facility] Address [address] [place], [place] [address] Care Team Providers Care Senior Business Manager Name Role Phone IsiahNate greenfield Cecelia OSBORNE Unavailable [phone] Basim Navarro MD Primary Care Provider Paulie Sandra MD Unavailable Teagan Henriquez RN Unavailable Pascale Kc SURFACE GRINDER TENDER.CATTLE AND WHEAT FARMER Unavailable Leeanne Balderas SURFACE GRINDER TENDER.CATTLE AND WHEAT FARMER Unavailable [phone] Juanita Luong PA-C Unavailable Rubi Rodriguez SURFACE GRINDER TENDER.CATTLE AND WHEAT FARMER Unavailable Christiana Sims PA-C Unavailable Tami Vazquez PA-C Unavailable [phone] Juanita Luong PA-C Unavailable Awa Sanchez [...] Care Team (Late st Contact Info) Description 11/05/2021 Get Medical Advice Family Medicine [place] [address] [place], [place] [address] Basim Navarro MD [address] [place], [place] [phone] Valium Social History Tobacco Use Types Packs/Day [...] often do you attend chur ch or mandaeism services? More than 4 times per year [...] 03/03/2021 [facility] of Occupat ional Health - [...] min 09/29/2019 Housing Stability Vital Sign Answer Steev e Recorded In the last 12 months, [...] place to sleep or slept in a long-term (including now)? No 03/03/2021 Area Deprivation Index Answer Date Sergio rded National Score (1-100), lower number is lower ri sk 70 10/14/2021 State Score (1-10), lower number is lower risk N ot on file 10/14/2021 Data from: https://www.neighborhoodatlas.medicine.[facility].edu/. 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 VIBHA Class: C-IV ARCHANA: No tiZANidine (ZANAFLEX) 2 mg tablet 60 tablet 1 Sig: Take one(1) tablet two(2) times daily as necessary ARCHANA: No Basim Navarro MD * Telephone Encounter - Shilpa Chiang RN - 11/09/2021 5:59 PM EDT Patient has been identified by name and date of : Yes Patient phones requesting refills as follows: Pending Prescriptions Disp Refills DIAZEPAM 5 MG TABLET 60 tablet 2 Sig: Take one(1) tablet two(2) times daily as needed. VIBHA Class: C-IV ARCHANA: No TIZANIDINE 2 MG TABLET 60 tablet 1 Sig: Take one(1) tablet two(2) times daily as necessary ARCHANA: No Last appointment: 07/06/2021 Next scheduled appointment: Appointments for Next 60 Days Date Time Provider Location Dept Phone 12/03/2021 2:30 PM SCREEN/DIAG MAMMO [facility] [phone] 12/07/2021 7:20 PM BASIM NAVARRO [facility] [phone] 12/30/2021 1:00 PM RUBI UMAÑA A [facility] [phone] RX INSTRUCTIONS: Respond to pharmacy Shilpa Chiang RN * Telephone Encounter - Diana Díaz RN - 11/05/2021 10:09 AM EDT Patient has been identified by name and date of : Yes Patient phones requesting refills as follows: Pending Prescriptions Disp Refills BACLOFEN 10 MG TABLET 30 tablet 1 Si pill at night as needed ARCHANA: No DIAZEPAM 5 MG TABLET 60 tablet 2 Sig: Take one(1) tablet two(2) times daily as needed. VIBHA Class: C-IV ARCHANA: No Last appointment: 07/06/2021 Next scheduled appointment: Appointments for Next 60 Days Date Time Provider Location Dept Phone 12/03/2021 2:30 PM SCREEN[facility]DIAG M[facility]MO [facility] [phone] 12/07/2021 7:20 PM BASIM NAVARRO [facility] [phone] 12/30/2021 1:00 PM RUBI UMAÑA A [facility] [phone] RX INSTRUCTIONS: Respond to pharmacy Diana Díaz RN documented in this encounter Plan of Treatment Upcoming Encounters Date Type Department Care Team (Latest Contact Info) Description 09/24/2024 6:00 PM EDT [facility] Family Medicine [place] [address] [place], [place] [phone] Basim Navarro MD [address] [place] [address] 3 month follow up 11/28/2024 9:40 AM EDT [facility] Endocrinology [place] [address] [place] [address] [place] [address] [facility] [address] [place] [address] Type one diabetes pump and cgm follow up 12/20/2024 4:00 PM EDT [facility] [address] [place] [address] Christiana Sims PA-C [address] [place] [address] 6 Month follow up and yearly physical 03/04/2025 5:20 PM EST Office Visit [facility] [address] [place] [address] Basim Navarro MD [address] [place] [address] 12 month follow up documented as of [...] 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 documented in this encounter Care Teams Senior Business Manager Relationship Specialty Start Date End Date Basim Navarro MD [address] [place] [address] PCP - General Family Medicine 08/09/17 Nate Joyce DO Nurse Practitioner Physician Assistant 02/09/13 Paulie Sandra MD [address] [phone] Primary Staff Physician Cardiology 07/04/18 Teagan Henriquez, JIE [address] [place] [address] Primary Care Client Services Administrator Internal Medicine 06/22/23 07/21/23 Pascale Kc APRN.CATTLE AND WHEAT FARMER [address] [place] [address] Records And Tape Recordings Engineer Family Medicine 03/26/24 07/04/24 Leeanne Balderas, SURFACE GRINDER TENDER.CATTLE AND WHEAT FARMER [address] [place] [address] Records And Tape Recordings Engineer Family Medicine 03/26/24 07/04/24 Juanita Luong PA-C [address] [place] [address] Records And Tape Recordings Engineer Family Medicine 03/26/24 07/04/24 Rubi Rodriguez APRN.CATTLE AND WHEAT FARMER [address] [place] [address] Records And Tape Recordings Engineer Family Medicine 03/26/24 07/04/24 Christiana Sims PA-C [address] [place] [address] Records And Tape Recordings Engineer Family Medicine 03/26/24 Tami Vazquez PA-C [address] [place] [address] Records And Tape Recordings Engineer Family Medicine 06/07/24 07/04/24 Juanita Luong PA-C [address] [place] [address] Records And Tape Recordings Engineer Family Medicine 07/11/24 07/25/24 Awa Sanchez PA-C [address] [place] [id number] Records And Tape Recordings Engineer Internal Medicine 09/03/24 documented as of this encounter
--- OUTSIDE RECORDS SUMMARY | 2024-09-09 00:46 | XMS_ITS | Encounter Summary ---
Author Organization [facility] Address [address] [place], [place] [id number] Care Team Providers Care Target Developer Name Role Phone IsiahNate greenfield Cecelia OSBORNE Unavailable [phone] Basim White MD Primary Care Provider Paulie Sandra MD Unavailable Pasc[employer] K[employer] BILL RECAPITULATION CLERK.TEXTILES AND CLOTHING TEACHER Unavailable Leeanne Balderas BILL RECAPITULATION CLERK.TEXTILES AND CLOTHING TEACHER Unavailable [phone] Juanita Luong PA-C Unavailable Rubi Rodriguez BILL RECAPITULATION CLERK.TEXTILES AND CLOTHING TEACHER Unavailable Christiana Sims PA-C Unavailable Tami Vazquez PA-C Unavailable [phone] Juanita Luong PA-C Unavailable Awa Sanchez PA-C Unavailable Source Comments In the event this information is protected by the Federal Confidentiality of Alcohol and Drug AbusePatient Records regulations: The Federal rules restrict any use of the information to criminally investigate or prosecute any alcohol or drug abuse patient.[facility] Encounter Details Date Type Department Care Team (Late st Contact Info) Description 09/28/2023 Patient Msg Neurology [address] [place] [address] Provider, Ccf Please contact scheduling Social History Tobacco Use Types Packs/Day Years Used Date Smoking Tobacco: Never Smokeless Tobacco: Never Alcohol Use Standard Drinks/Week Comments Yes 0 (1 standard drink = 0.6 oz pur e alcohol) rarely [facility] Utilities Answer Date Recorded In the [...] often do you attend [facility] or moravian services? More than 4 times per year 05/20/2023 Do you belong to any clubs o r organizations such as tenriism groups, unions, fraternal or athletic groups, or [...] Answer Date Recorded PHQ-2 score 6 09/03/2023 [facility] [place] of Occupat ional Health - Occupational Stress [...] or slept in a fdc (including now)? No 06/20/2023 Area Deprivation Index [...] Industry Job Start Date Job End Date [employer] Not on file Not on file Not [...] Contact Info) Description 09/24/2024 6:00 PM EDT [facility] Family Medicine [place] [address] [place], [place] [id number] Basim White MD [address] [place] [address] 3 month follow up 11/28/2024 9:40 AM EDT [facility] Endocrinology [address] [address] [place] [address] [facility] [address] [place] [address] Type one diabetes pump and cgm follow up 12/20/2024 4:00 PM EDT [facility] 450 [place] [address] Christiana Sims PA-C 450 [place] [address] 6 Month follow up and yearly physical 03/04/2025 5:20 PM EST Office Visit [facility] [address] [place] [address] Basim White MD [address] [place] [address] 12 month follow up documented as of [...] on filedocumented in this encounter Care Teams Target Developer Relationship Specialty Start Date End Date Basim White MD [address] [place] [address] PCP - General Family Medicine 08/09/17 Nate Joyce DO Peoplesoft Programmer 02/09/13 Paulie Sandra MD [address] [phone] Primary Staff Physician Cardiology 07/04/18 Pascale Kc, BILL RECAPITULATION CLERK.TEXTILES AND CLOTHING TEACHER [address] [place] [address] [facility] 03/26/24 07/04/24 Leeanne Balderas, BILL RECAPITULATION CLERK.TEXTILES AND CLOTHING TEACHER [address] [place] [address] [facility] 03/26/24 07/04/24 Juanita Luong PA-C [address] [place] [address] [facility] 03/26/24 07/04/24 Rubi Rodriguez, BILL RECAPITULATION CLERK.TEXTILES AND CLOTHING TEACHER [address] [place] [address] [facility] 03/26/24 07/04/24 Christiana Sims PA-C [address] [place] [address] [facility] 03/26/24 Tami Vazquez PA-C [address] [place] [address] [facility] 06/07/24 07/04/24 Juanita Luong PA-C [address] [place] [address] [facility] Family [facility] 07/11/24 07/25/24 Awa Sanchez PA-C [address] [place] [address] [facility] Internal Medicine 09/03/24 documented as of this encounter
--- OUTSIDE RECORDS SUMMARY | 2024-09-09 00:46 | XMS_ITS | Encounter Summary ---
Author Organization [facility] Address [address] [place], [place] [id number] Care Team Providers Care Metal Patternmaker Apprentice Name Role Phone IsiahNate greenfield Cecelia OSBORNE Unavailable [phone] Basim White MD Primary Care Provider Paulie Sandra MD Unavailable Pascale Kc BLOCK SORTER.COMMERCIAL DRONE PILOT Unavailable Leeanne aBlderas BLOCK SORTER.COMMERCIAL DRONE PILOT Unavailable [phone] Juanita Luong PA-C Unavailable Rubi Rodriguez BLOCK SORTER.COMMERCIAL DRONE PILOT Unavailable Christiana Sims PA-C Unavailable Tami Vazquez PA-C Unavailable [phone] Juanita Luong PA-C Unavailable Awa Sanchez [...] Care Team (Late st Contact Info) Description 02/14/2024 Patient Msg Cardiology [address] [phone] Provider, Ccf Appointment Cancellation Request Social History Tobacco Use Types Packs/Day Years Used Date Smoking Tobacco: Never Smokeless Tobacco: Never Alcohol Use Standard Drinks/Week Comments Yes 0 (1 standard drink = 0.6 oz pur e alcohol) rarely [facility] Utilities Answer Date Recorded In [...] Never 05/20/2023 How often do you attend [facility] or druze services? More than 4 times per year 05/20/2023 Do you belong to any clubs o r organizations such as oriental orthodox groups, unions, fraternal or athletic groups, or [...] Answer Date Recorded PHQ-2 score 6 01/09/2024 [facility] [place] of Occupat ional Health - Occupational Stress [...] to sleep or slept in a senior living (including now)? 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 file Not [...] Description 09/24/2024 6:00 PM EDT [facility] Family Medicine [place] [address] [place], [place] [phone] Basim White MD [address] [place] [address] 3 month follow up 11/28/2024 9:40 AM EDT [facility] Endocrinology [address] [address] [place] [address] [facility] [address] [place] [address] Type one diabetes pump and cgm follow up 12/20/2024 4:00 PM EDT [facility] 450 [place] [address] Christiana Sims PA-C 450 [place] [address] 6 Month follow up and yearly physical 03/04/2025 5:20 PM EST Office Visit [facility] [place] 450 [place] [address] Basim White MD 450 [place] [address] 12 month follow up documented as of [...] on filedocumented in this encounter Care Teams Metal Patternmaker Apprentice Relationship Specialty Start Date End Date Basim White MD [address] [place] [address] PCP - General Family Medicine 08/09/17 Nate Joyce DO Web Press Operator 02/09/13 Paulie Sandra MD [address] [phone] Primary Staff Physician Cardiology 07/04/18 Pascale Kc, BLOCK SORTER.COMMERCIAL DRONE PILOT [address] [place] [address] [facility] 03/26/24 07/04/24 Leeanne Balderas, BLOCK SORTER.COMMERCIAL DRONE PILOT [address] [place] [address] [facility] 03/26/24 07/04/24 Juanita Luong PA-C [address] [place] [address] [facility] 03/26/24 07/04/24 Rubi Rodriguez, BLOCK SORTER.COMMERCIAL DRONE PILOT [address] [place] [address] School Office Assistant Family Medicine 03/26/24 07/04/24 Christiana Sims PA-C [address] [place] [address] School Office Assistant Family Medicine 03/26/24 Tami Vazquez PA-C [address] [place] [address] School Office Assistant Family Medicine 06/07/24 07/04/24 Juanita Luong PA-C [address] [place] [address] School Office Assistant Family Medicine 07/11/24 07/25/24 Awa Sanchez PA-C [address] [place] [address] School Office Assistant Internal Medicine 09/03/24 documented as of this encounter
--- OUTSIDE RECORDS SUMMARY | 2024-09-09 00:46 | XMS_ITS | Encounter Summary ---
Author Organization [facility] Address [address] [place], [place] [address] Care Team Providers Care Conche Operator Name Role Phone IsiahNate greenfield Cecelia OSBORNE Unavailable [phone] Basim White MD Primary Care Provider [phone] Paulie Sandra MD Unavailable [phone] Pascale Kc JAVA DEVELOPER WITH SECURITY CLEARANCE.PROOF TECHNICIAN Unavailable Leeanne Balderas JAVA DEVELOPER WITH SECURITY CLEARANCE.PROOF TECHNICIAN Unavailable [phone] Juanita Luong PA-C Unavailable Rubi Rodriguez JAVA DEVELOPER WITH SECURITY CLEARANCE.PROOF TECHNICIAN Unavailable Christiana Sims PA-C Unavailable Tami Vazquez PA-C Unavailable [phone] Juanita Luong PA-C Unavailable Awa Sanchez [...] Care Team (Late st Contact Info) Description 10/24/2023 Patient Msg Family Medicine [place] [address] [place], [place] [phone] Basim White MD 450 [place], [place] [phone] Appointment Request Social History Tobacco Use Types Packs/Day Years Used Date Smoking Tobacco: Never Smokeless Tobacco: Never Alcohol Use Standard Drinks/Week Comments Yes 0 (1 standard drink = 0.6 oz pur e alcohol) rarely [facility] Utilities Answer Date Recorded In the [...] Never 05/20/2023 How often do you attend [facility] or sikh services? More than 4 times per year [...] PHQ-2 score 6 09/03/2023 [facility] [place] of Occupat ional Health - Occupational Stress [...] place to sleep or slept in a fci (including now)? No 06/20/2023 Area Deprivation Index Answer Date Sergio rded National Score (1-100), lower number is lower ri sk 79 08/26/2022 State Score (1-10), lower number is lower risk 7 08/26/2022 Data from: https://www.neighborhoodatlas.medicine.[facility].edu/. 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 on file Not [...] Contact Info) Description 09/24/2024 6:00 PM EDT [facility] Family Medicine [place] [address] [place] [address] Basim White MD [address] [place] [address] 3 month follow up 11/28/2024 9:40 AM EDT [facility] Endocrinology [place] [address] [place] [address] [place] [address] [facility] [address] [place] [address] Type one diabetes pump and cgm follow up 12/20/2024 4:00 PM EDT [facility] Family Medicine [place] 450 [place] [address] Christiana Sims PA-C [address] [place] [address] 6 Month follow up and yearly physical 03/04/2025 5:20 PM EST Office Visit [address] [address] Basim White MD [address] [place] [address] 12 month follow up documented as of [...] on filedocumented in this encounter Care Teams Conche Operator Relationship Specialty Start Date End Date Basim White MD [address] [place] [address] PCP - General Family Medicine 08/09/17 Nate Joyce DO Scenic Designer 02/09/13 Paulie Sandra MD [address] [address] Primary Staff Physician Cardiology 07/04/18 Pascale Kc, JAVA DEVELOPER WITH SECURITY CLEARANCE.PROOF TECHNICIAN [address] [place] [address] [facility] Family [facility] 03/26/24 07/04/24 Leeanne Balderas, JAVA DEVELOPER WITH SECURITY CLEARANCE.PROOF TECHNICIAN [address] [place] [address] [facility] Family Medicine 03/26/24 07/04/24 Juanita Luong PA-C [address] [place] [address] [facility] Family Medicine 03/26/24 07/04/24 Rubi Rodriguez APRN.PROOF TECHNICIAN [address] [place] [address] [facility] Family Medicine 03/26/24 07/04/24 Christiana Sims PA-C [address] [place] [address] [facility] Family Medicine 03/26/24 Tami Vazquez PA-C [address] [place] [address] [facility] Family Medicine 06/07/24 07/04/24 Juanita Luong PA-C [address] [place] [address] Neck Band Setter Family Medicine 07/11/24 07/25/24 Awa Sanchez PA-C [address] [place] [address] Neck Band Setter Internal Medicine 09/03/24 documented as of this encounter
--- OUTSIDE RECORDS SUMMARY | 2024-09-09 00:46 | XMS_ITS | Encounter Summary ---
Author Organization [facility] Address [address] [place], [place] [address] Care Team Providers Care Skin Therapist Name Role Phone IsiahNate greenfield Cecelia OSBORNE Unavailable [phone] Basim White MD Primary Care Provider Paulie Sandra MD Unavailable Pascale Kc CADDY/CADDIE SUPERVISOR.DOOR CLAMPER Unavailable Leeanne Balderas CADDY/CADDIE SUPERVISOR.DOOR CLAMPER Unavailable [phone] Juanita Luong PA-C Unavailable Rubi Rodriguez CADDY/CADDIE SUPERVISOR.DOOR CLAMPER Unavailable Christiana Sims PA-C Unavailable Tami Vazquez PA-C Unavailable [phone] Juanita Luong PA-C Unavailable Awa Sanchez PA-C Unavailable Source Comments In the event this information is protected by the Federal Confidentiality of Alcohol and Drug AbusePatient Records regulations: The Federal rules restrict any use of the information to criminally investigate or prosecute any alcohol or drug abuse patient.[facility] Encounter Details Date Type Department Care Team (Late st Contact Info) Description 12/22/2023 Get Medical Advice Neurology [address] [place], [place] [phone] [place] [address] [address] [place] [address] Migraines Social History Tobacco Use Types Packs/Day Years Used Date Smoking Tobacco: Never Smokeless Tobacco: Never Alcohol Use Standard Drinks/Week Comments Yes 0 (1 standard drink = 0.6 oz pur e alcohol) rarely [facility] Utilities Answer Date Recorded In the past [...] Never 05/20/2023 How often do you attend [facility] or yazidism services? More than 4 times per year 05/20/2023 Do you belong to any clubs o r organizations such as adventism groups, unions, fraternal or athletic groups, or [...] Answer Date Recorded PHQ-2 score 6 11/14/2023 [facility] of Occupat ional Health - Occupational Stress [...] place to sleep or slept in a half-way (including now)? No 06/20/2023 Area Deprivation Index Answer Date Sergio rded National Score (1-100), lower number is lower ri sk 79 08/26/2022 State Score (1-10), lower number is lower risk 7 08/26/2022 Data from: https://www.neighborhoodatlas.medicine.[facility].edu/. 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 Not on file Not [...] Contact Info) Description 09/24/2024 6:00 PM EDT [facility] Family Medicine [place] [address] [place] [address] Basim White MD [address] [place] [address] 3 month follow up 11/28/2024 9:40 AM EDT [facility] Endocrinology [place] [address] [place] [address] [place] [address] [facility] [address] [place] [address] Type one diabetes pump and cgm follow up 12/20/2024 4:00 PM EDT [facility] Family Medicine [place] [address] [place] [address] Christiana Sims PA-C 450 [place] [address] 6 Month follow up and yearly physical 03/04/2025 5:20 PM EST Office Visit [facility] [address] [place] [address] Basim White MD [address] [place] [address] 12 month follow up documented as of [...] on filedocumented in this encounter Care Teams Skin Therapist Relationship Specialty Start Date End Date Basim White MD [address] [place] [address] PCP - General Family Medicine 08/09/17 Nate Joyce DO Online Journalist 02/09/13 Paulie Sandra MD [address] [address] Primary Staff Physician Cardiology 07/04/18 Pascale Kc, CADDY/CADDIE SUPERVISOR.DOOR CLAMPER [address] [place] [address] [facility] 03/26/24 07/04/24 Leeanne Balderas, CADDY/CADDIE SUPERVISOR.DOOR CLAMPER [address] [place] [address] [facility] Family Medicine 03/26/24 07/04/24 Juanita Luong PA-C [address] [place] [address] [facility] Family [facility] 03/26/24 07/04/24 Rubi Rodriguez APRN.DOOR CLAMPER [address] [place] [address] Patient Coordinator Front Desk Family Medicine 03/26/24 07/04/24 Christiana Sims PA-C [address] [place] [address] Patient Coordinator Front Desk Family Medicine 03/26/24 Tami Vazquez PA-C [address] [place] [address] Patient Coordinator Front Desk Family Medicine 06/07/24 07/04/24 Juanita Luong PA-C [address] [place] [address] Patient Coordinator Front Desk Family Medicine 07/11/24 07/25/24 Awa Sanchez PA-C [address] [place] [address] Patient Coordinator Front Desk Internal Medicine 09/03/24 documented as of this encounter
--- OUTSIDE RECORDS SUMMARY | 2024-09-09 00:46 | XMS_ITS | Encounter Summary ---
Author Organization [facility] Address [address] [place], [place] [address] Care Team Providers Care Air Vice Marshal Name Role Phone IsiahNate greenfield Cecelia OSBORNE Unavailable [phone] Basim White MD Primary Care Provider Paulie Sandra MD Unavailable Pascale Kc CASH MANAGEMENT ASSOCIATE.PAPER SORTER AND COUNTER Unavailable Leeanne Balderas CASH MANAGEMENT ASSOCIATE.PAPER SORTER AND COUNTER Unavailable [phone] Juanita Luong PA-C Unavailable Rubi Rodriguez CASH MANAGEMENT ASSOCIATE.PAPER SORTER AND COUNTER Unavailable Christiana Sims PA-C Unavailable Tami Vazquez PA-C Unavailable [phone] Juanita Luong PA-C Unavailable Awa Sanchez PA-C Unavailable Source Comments In the event this information is protected by the Federal Confidentiality of Alcohol and Drug AbusePatient Records regulations: The Federal rules restrict any use of the information to criminally investigate or prosecute any alcohol or drug abuse patient.[facility] Encounter Details Date Type Department Care Team (Late st Contact Info) Description 10/24/2023 Patient Msg Family Medicine [place] [address] [place], [place] [id number] Basim White MD [address] [place], [place] [address] Appointment Request Social History Tobacco Use Types Packs/Day Years Used Date Smoking Tobacco: Never Smokeless Tobacco: Never Alcohol Use Standard Drinks/Week Comments Yes 0 (1 standard drink = 0.6 oz pur e alcohol) rarely [facility] Utilities Answer Date Recorded In [...] Never 05/20/2023 How often do you attend [facility] or restoration services? More than 4 times [...] Answer Date Recorded PHQ-2 score 6 09/03/2023 [facility] [place] of Occupat ional Health - Occupational Stress [...] is lower risk 7 08/26/2022 Data from: https://www.neighborhoodatlas.medicine.[facility].edu/. 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 [...] Description 09/24/2024 6:00 PM EDT [facility] Family Medicine [place] [address] [place] [address] Basim White MD [address] [place] [address] 3 month follow up 11/28/2024 9:40 AM EDT [facility] Endocrinology [place] [address] [place] [address] [place] [address] [facility] [address] [place] [address] Type one diabetes pump and cgm follow up 12/20/2024 4:00 PM EDT [facility] Family Medicine [place] [address] [place] [address] Christiana Sims PA-C [address] [place] [address] 6 Month follow up and yearly physical 03/04/2025 5:20 PM EST Office Visit [address] [address] Basim White MD [address] [place] [address] 12 month follow up documented as of [...] on filedocumented in this encounter Care Teams Air Vice Marshal Relationship Specialty Start Date End Date Basim White MD [address] [place] [address] PCP - General Family Medicine 08/09/17 Nate Joyce DO Housing Project Manager 02/09/13 Paulie Sandra MD [address] [address] Primary Staff Physician Cardiology 07/04/18 Pascale Kc, CASH MANAGEMENT ASSOCIATE.PAPER SORTER AND COUNTER [address] [place] [address] [facility] Family [facility] 03/26/24 07/04/24 Leeanne Balderas, CASH MANAGEMENT ASSOCIATE.PAPER SORTER AND COUNTER [address] [place] [address] [facility] Family Medicine 03/26/24 07/04/24 Juanita Luong PA-C [address] [place] [address] [facility] Family Medicine 03/26/24 07/04/24 Rubi Rodriguez APRN.PAPER SORTER AND COUNTER [address] [place] [address] Sales Assistant Institutional Sales Family Medicine 03/26/24 07/04/24 Christiana Sims PA-C [address] [place] [address] Sales Assistant Institutional Sales Family Medicine 03/26/24 Tami Vazquez PA-C [address] [place] [address] Sales Assistant Institutional Sales Family Medicine 06/07/24 07/04/24 Juanita Luong PA-C [address] [place] [address] Sales Assistant Institutional Sales Family Medicine 07/11/24 07/25/24 Awa Sanchez PA-C [address] [place] [address] Sales Assistant Institutional Sales Internal Medicine 09/03/24 documented as of this encounter
--- OUTSIDE RECORDS SUMMARY | 2024-09-09 00:46 | XMS_ITS | Encounter Summary ---
Author Organization [facility] Address [address] [place], [place] [id number] Care Team Providers Care Supervisor Cabinetmaker Name Role Phone IsiahNate greenfield Cecelia OSBORNE Unavailable [phone] Basim White MD Primary Care Provider Paulie Sandra MD Unavailable Pascale K[employer] CASING MAN.TECHNICAL ASST Unavailable Leeanne Balderas CASING MAN.TECHNICAL ASST Unavailable [phone] Juanita Luong PA-C Unavailable Rubi Rodriguez CASING MAN.TECHNICAL ASST Unavailable Christiana Sims PA-C Unavailable Tami Vazquez PA-C Unavailable [phone] Juanita Luong PA-C Unavailable Awa Sanchez [...] Care Team (Late st Contact Info) Description 09/29/2023 Get Medical Advice [facility] [address] [place] [address] [place] [address] [facility] [address] [place] [address] Novolog Social History Tobacco Use Types Packs/Day Years Used Date Smoking Tobacco: Never Smokeless Tobacco: Never Alcohol Use Standard Drinks/Week Comments Yes 0 (1 standard drink = 0.6 oz pur e alcohol) rarely [facility] Utilities Answer Date Recorded In [...] often do you attend chur ch or denominational services? More than 4 times per year 05/20/2023 Do you belong to any clubs o r organizations such as presybeterian groups, unions, fraternal or athletic groups, or [...] Date Recorded PHQ-2 score 6 09/03/2023 [facility] [place] of Occupat ional Health - Occupational Stress [...] place to sleep or slept in a skilled nursing (including now)? No 06/20/2023 Area Deprivation Index Answer Date Sergio rded National Score (1-100), lower number is lower ri sk 79 08/26/2022 State Score (1-10), lower number is lower risk 7 08/26/2022 Data from: https://www.neighborhoodatlas.medicine.[facility].edu/. Last address used for calculation [...] Industry Job Start Date Job End Date [employer] Not on file Not on file Not [...] Contact Info) Description 09/24/2024 6:00 PM EDT Located Within [facility] Medicine [place] [address] [place] [address] Basim White MD [address] [place] [address] 3 month follow up 11/28/2024 9:40 AM EDT [facility] Endocrinology [place] [address] [place] [address] [place] [address] [facility] [address] [place] [address] Type one diabetes pump and cgm follow up 12/20/2024 4:00 PM EDT [facility] Family Medicine [place] [address] [place] [address] Christiana Sims PA-C [address] [place] [address] 6 Month follow up and yearly physical 03/04/2025 5:20 PM EST Office Visit [facility] [address] [place] [address] Basim White MD [address] [place] [address] 12 month follow up documented as of [...] on filedocumented in this encounter Care Teams Supervisor Cabinetmaker Relationship Specialty Start Date End Date Basim White MD [address] [place] [address] PCP - General Family Medicine 08/09/17 Nate Joyce DO Adult Basic Education Instructor 02/09/13 Paulie Sandra MD [address] [address] Primary Staff Physician Cardiology 07/04/18 Pascale Kc, CASING MAN.TECHNICAL ASST [address] [place] [address] [facility] 03/26/24 07/04/24 Leeanne Balderas, CASING MAN.TECHNICAL ASST [address] [place] [address] [facility] Family Medicine 03/26/24 07/04/24 Juanita Luong PA-C [address] [place] [address] [facility] Family [facility] 03/26/24 07/04/24 GoRubi severino APRN.TECHNICAL ASST [address] [place] [address] Dairy Technician Family Medicine 03/26/24 07/04/24 Christiana Sims PA-C [address] [place] [address] Dairy Technician Family Medicine 03/26/24 Tami Vazquez PA-C [address] [place] [address] Dairy Technician Family Medicine 06/07/24 07/04/24 Juanita Luong PA-C [address] [place] [address] Dairy Technician Family Medicine 07/11/24 07/25/24 Awa Sanchez PA-C [address] [place] [address] Dairy Technician Internal Medicine 09/03/24 documented as of this encounter
--- OUTSIDE RECORDS SUMMARY | 2024-09-09 00:46 | XMS_ITS | Encounter Summary ---
Author Organization [facility] Address [address] [place], [place] [address] Care Team Providers Care Relations Mgr Name Role Phone IsiahNate greenfield Cecelia OSBORNE Unavailable [phone] Basim White MD Primary Care Provider [phone] Paulie Sandra MD Unavailable [employer] K[employer] CLINICAL LABORATORY SCIENTIST.TRAILER TECHNICIAN Unavailable Leeanne Balderas CLINICAL LABORATORY SCIENTIST.TRAILER TECHNICIAN Unavailable [phone] Juanita Luong PA-C Unavailable Rubi Rodriguez CLINICAL LABORATORY SCIENTIST.TRAILER TECHNICIAN Unavailable Christiana Sims PA-C Unavailable Tami Vazquez PA-C Unavailable [phone] Juanita Luong PA-C Unavailable Awa Sanchez PA-C Unavailable Source Comments In the event this information is protected by the Federal Confidentiality of Alcohol and Drug AbusePatient Records regulations: The Federal rules restrict any use of the information to criminally investigate or prosecute any alcohol or drug abuse patient.[facility] Encounter Details Date Type Department Care Team (Late st Contact Info) Description 04/23/2024 Patient Msg Neurology [address] [place] [address] Provider, Ccf Please Confirm Your Sleep Study for 04/25/24 Social History Tobacco Use Types Packs/Day Years Used Date Smoking Tobacco: Never Smokeless Tobacco: Never Alcohol Use Standard Drinks/Week Comments Yes 0 (1 standard drink = 0.6 oz pur e alcohol) rarely [facility] Utilities Answer Date Recorded In the past 12 months has [employer] electric, gas, oil, or water company threatened [...] you attend [facility] ch or confucianism services? More than 4 times per year [...] Answer Date Recorded PHQ-2 score 6 03/26/2024 [facility] [place] of Occupat ional Health - Occupational Stress [...] Yes 06/20/2023 Housing Stability Vital Sign Answer Stvee e Recorded In the last 12 months, [...] is lower risk 7 08/26/2022 Data from: https://www.neighborhoodatlas.medicine.[facility].edu/. 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 Not [...] Contact Info) Description 09/24/2024 6:00 PM EDT [facility] Family Medicine [place] [address] [place] [address] Basim White MD 450 [place] [address] 3 month follow up 11/28/2024 9:40 AM EDT [facility] Endocrinology [address] [place] [address] [place] [address] [facility] [address] [place] [address] Type one diabetes pump and cgm follow up 12/20/2024 4:00 PM EDT [facility] [address] [place] [address] Christiana Sims PA-C 450 [place] [address] 6 Month follow up and yearly physical 03/04/2025 5:20 PM EST Office Visit [address] [address] Basim White MD [address] [place] [address] 12 month follow up documented as of [...] on filedocumented in this encounter Care Teams Relations Mgr Relationship Specialty Start Date End Date Basim White MD [address] [place] [address] PCP - General Family Medicine 08/09/17 Nate Joyce DO Telemarketing Agent 02/09/13 Paulie Sandra MD [address] [address] Primary Staff Physician Cardiology 07/04/18 Pascale Kc APRN.TRAILER TECHNICIAN [address] [place] [address] General Foundry Worker Family [facility] 03/26/24 07/04/24 Leeanne Balderas, CLINICAL LABORATORY SCIENTIST.TRAILER TECHNICIAN [address] [place] [address] General Foundry Worker Family Medicine 03/26/24 07/04/24 Juanita Luong PA-C [address] [place] [address] [facility] Family [facility] 03/26/24 07/04/24 Rubi Rodriguez, ISABELLA.TRAILER TECHNICIAN [address] [place] [address] General Foundry Worker Family Medicine 03/26/24 07/04/24 Christiana Sims PA-C [address] [place] [address] General Foundry Worker Family Medicine 03/26/24 Tami Vazquez PA-C [address] [place] [address] General Foundry Worker Family Medicine 06/07/24 07/04/24 Juanita Luong PA-C [address] [place] [address] General Foundry Worker Family Medicine 07/11/24 07/25/24 Awa Sanchez PA-C [address] [place] [address] General Foundry Worker Internal Medicine 09/03/24 documented as of this encounter
--- OUTSIDE RECORDS SUMMARY | 2024-09-09 00:46 | XMS_ITS | Encounter Summary ---
Author Organization [facility] Address [address] [place], [place] [id number] Care Team Providers Care Herb Digger Name Role Phone IsiahNate greenfield Cecelia OSBORNE Unavailable [phone] Basim White MD Primary Care Provider Paulie Sandra MD Unavailable [phone] Teagan Henriquez RN Unavailable Pasc[employer] Kc STRAIGHTEDGE WORKER.DIGITAL COMMUNICATIONS MANAGER Unavailable Leeanne Balderas STRAIGHTEDGE WORKER.DIGITAL COMMUNICATIONS MANAGER Unavailable [phone] Juanita Luong PA-C Unavailable Rubi Rodriguez STRAIGHTEDGE WORKER.DIGITAL COMMUNICATIONS MANAGER Unavailable Christiana Sims PA-C Unavailable Tami Vazquez PA-C Unavailable [phone] Juanita Luong PA-C Unavailable Awa Sanchez PA-C Unavailable Source Comments In the event this information is protected by the Federal Confidentiality of Alcohol and Drug AbusePatient Records regulations: The Federal rules restrict any use of the information to criminally investigate or prosecute any alcohol or drug abuse patient.[facility] Encounter Details Date Type Department Care Team (Kathryn saini Contact Info) Description 01/03/2020 Patient Msg Otolaryngology [address] [id number] Provider, Ccf 01/17 Dr Romero appointment now virtual Social History Tobacco Use Types Packs/Day Years [...] How often do you attend chur or tenriism services? More than 4 times [...] Answer Date Recorded PHQ-2 Score 6 12/15/2019 [facility] [place] of Occupat ional Health - Occupational Stress [...] place to sleep or slept in a custodial (including now)? Patient refused 09/29/2019 Education Answer [...] Job Start Date Job End Date [employer] Not on file Not on file Not on file disability since 07/2015 (off work since 11/2013) Not on file Not on file Not on file COVID-19 Exposure Response Date Recorded In the last month, have you been in contact with someone who was confirmed or suspected to have Coronavirus / COVID-19? Unable to assess 01/03/2020 1:52 PM EDT documented as of this encounter Functional Status * Are you deaf or do you have serious difficulty hearing? Answer Date of Assessment Author No 01/25/2017 3:55 PM EDT Osmany Ireland RN * Are you blind or do you have serious difficulty seeing, even when wearing glasses? Answer Date of Assessment Author No 01/25/2017 3:55 PM EDT Osmany Ierland RN * Do you have serious difficulty [...] Contact Info) Description 09/24/2024 6:00 PM EDT [address] [address] Basim White MD [address] [place] [address] 3 month follow up 11/28/2024 9:40 AM EDT [facility] Endocrinology [place] [address] [place] [address] [place] [address] [address] Type one diabetes pump and cgm follow up 12/20/2024 4:00 PM EDT [address] [address] Christiana Sims PA-C [address] [place] [address] 6 Month follow up and yearly physical 03/04/2025 5:20 PM EST Office Visit [address] [address] Basim White MD [address] [place] [address] 12 month follow up documented as of [...] documented as of this encounter Care Teams Herb Digger Relationship Specialty Start Date End Date Basim White MD [address] [place] [address] PCP - General Family Medicine 08/09/17 Nate Joyce DO Claim Rep 02/09/13 Paulie Sandra MD [address] [address] Primary Staff Physician Cardiology 07/04/18 Teagan Henriquez, RN [address] [place] [address] Primary Care Bearing Press Machine Operator Internal Medicine 06/22/23 07/21/23 Pascale Kc, STRAIGHTEDGE WORKER.DIGITAL COMMUNICATIONS MANAGER [address] [place] [address] Client Development Director Family Medicine 03/26/24 07/04/24 Leeanne Balderas, STRAIGHTEDGE WORKER.DIGITAL COMMUNICATIONS MANAGER [address] [place] [address] Client Development Director Family Medicine 03/26/24 07/04/24 Juanita Luong PA-C [address] [place] [address] Client Development Director Family Medicine 03/26/24 07/04/24 Rubi Rodriguez, STRAIGHTEDGE WORKER.DIGITAL COMMUNICATIONS MANAGER [address] [place] [address] Client Development Director Family Medicine 03/26/24 07/04/24 Christiana Sims PA-C [address] [place] [address] Client Development Director Family Medicine 03/26/24 Tami Vazquez PA-C [address] [place] [address] Client Development Director Family Medicine 06/07/24 07/04/24 Juanita Luong PA-C [address] [place] [address] Client Development Director Family Medicine 07/11/24 07/25/24 Awa Sanchez PA-C [address] [place] [address] Client Development Director Internal Medicine 09/03/24 documented as of this encounter
--- OUTSIDE RECORDS SUMMARY | 2024-09-09 00:46 | XMS_ITS | Encounter Summary ---
Author Organization [facility] Address [address] [place], [place] [address] Care Team Providers Care Carton Wrapper Name Role Phone IsiahNate greenfield Cecelia OSBORNE Unavailable [phone] Basim White MD Primary Care Provider Paulie Sandra MD Unavailable Pasc[employer] Kc ELEVATOR CONSTRUCTOR ELECTRIC.WAREHOUSE PULLER Unavailable Leeanne Balderas ELEVATOR CONSTRUCTOR ELECTRIC.WAREHOUSE PULLER Unavailable [phone] Juanita Luong PA-C Unavailable Rubi Rodriguez ELEVATOR CONSTRUCTOR ELECTRIC.WAREHOUSE PULLER Unavailable Christiana Sims PA-C Unavailable Tami Vazquez PA-C Unavailable [phone] Juanita Luong PA-C Unavailable Awa Sanchez PA-C Unavailable Source Comments In the event this information is protected by the Federal Confidentiality of Alcohol and Drug AbusePatient Records regulations: The Federal rules restrict any use of the information to criminally investigate or prosecute any alcohol or drug abuse patient.[facility] Encounter Details Date Type Department Care Team (Late st Contact Info) Description 10/13/2023 Get Medical Advice Family Medicine [place] [address] [place] [address] Basim White MD [address] [place], [place] [phone] Colton Estrada Social History Tobacco Use Types Packs/Day Years Used Date Smoking Tobacco: Never Smokeless Tobacco: Never Alcohol Use Standard Drinks/Week Comments Yes 0 (1 standard drink = 0.6 oz pur e alcohol) rarely [facility] Utilities Answer Date Recorded [...] 05/20/2023 How often do you attend [facility] or congregational services? More than 4 times per year 05/20/2023 Do you belong to any clubs o r organizations such as hindu groups, unions, fraternal or athletic groups, or [...] Answer Date Recorded PHQ-2 score 6 09/03/2023 [facility] [place] of Occupat ional Health - Occupational Stress [...] place to sleep or slept in a halfway (including now)? No 06/20/2023 Area Deprivation Index Answer Date Sergio rded National Score (1-100), lower number is lower ri sk 79 08/26/2022 State Score (1-10), lower number is lower risk 7 08/26/2022 Data from: https://www.neighborhoodatlas.medicine.[facility].edu/. Last address used for calculation [address] [...] Industry Job Start Date Job End Date [employer] Not on file Not on file Not [...] Contact Info) Description 09/24/2024 6:00 PM EDT [facility] Medicine [place] [address] [place] [address] Basim White MD [address] [place] [address] 3 month follow up 11/28/2024 9:40 AM EDT [facility] Endocrinology [place] [address] [place] [address] [place] [address] [facility] [address] [place] [address] Type one diabetes pump and cgm follow up 12/20/2024 4:00 PM EDT [facility] Family Medicine [place] [address] [place] [address] Christiana Sims PA-C [address] [place] [address] 6 Month follow up and yearly physical 03/04/2025 5:20 PM EST Office Visit [facility] [address] [place] [address] Basim White MD [address] [place] [address] 12 month follow up documented as of [...] on filedocumented in this encounter Care Teams Carton Wrapper Relationship Specialty Start Date End Date Basim White MD [address] [place] [address] PCP - General Family Medicine 08/09/17 Nate Joyce DO Glass Ribbon Machine Operator 02/09/13 Paulie Sandra MD [address] [address] Primary Staff Physician Cardiology 07/04/18 Pascale Kc, ELEVATOR CONSTRUCTOR ELECTRIC.WAREHOUSE PULLER [address] [place] [address] [facility] 03/26/24 07/04/24 Leeanne Balderas, ELEVATOR CONSTRUCTOR ELECTRIC.WAREHOUSE PULLER [address] [place] [address] [facility] Family Medicine 03/26/24 07/04/24 Juanita Luong PA-C [address] [place] [address] [facility] Family [facility] 03/26/24 07/04/24 Rubi Rodriguez APRN.WAREHOUSE PULLER [address] [place] [address] [facility] Family Medicine 03/26/24 07/04/24 Christiana Sims PA-C [address] [place] [address] [facility] Family Medicine 03/26/24 Tami Vazquez PA-C [address] [place] [address] [facility] Family Medicine 06/07/24 07/04/24 Juanita Luong PA-C [address] [place] [address] [facility] Family Medicine 07/11/24 07/25/24 Awa Sanchez PA-C [address] [place] [address] [facility] Internal Medicine 09/03/24 documented as of this encounter
--- OUTSIDE RECORDS SUMMARY | 2024-09-09 00:46 | XMS_ITS | Encounter Summary ---
Author Organization [facility] Address [address] [place], [place] [address] Care Team Providers Care Patient Account Analyst Name Role Phone IsiahNate greenfield Cecelia OSBORNE Unavailable [phone] Basim White MD Primary Care Provider Paulie Sandra MD Unavailable Pascale Kc GEAR SHAPER SET UP OPERATOR.GRINDER SET UP OPERATOR Unavailable Leeanne Balderas GEAR SHAPER SET UP OPERATOR.GRINDER SET UP OPERATOR Unavailable [phone] Juanita Luong PA-C Unavailable Rubi Rodriguez GEAR SHAPER SET UP OPERATOR.GRINDER SET UP OPERATOR Unavailable Christiana Sims PA-C Unavailable Tami Vazquez PA-C Unavailable [phone] Juanita Luong PA-C Unavailable Awa Sanchez PA-C Unavailable Source Comments In the event this information is protected by the Federal Confidentiality of Alcohol and Drug AbusePatient Records regulations: The Federal rules restrict any use of the information to criminally investigate or prosecute any alcohol or drug abuse patient.[facility] Encounter Details Date Type Department Care Team (Late st Contact Info) Description 02/14/2024 Patient Msg Molecular Imaging [address] [id number] Provider, Ccf Appointment Cancellation Request Social History Tobacco Use Types Packs/Day Years Used Date Smoking Tobacco: Never Smokeless Tobacco: Never Alcohol Use Standard Drinks/Week Comments Yes 0 (1 standard drink = 0.6 oz pur e alcohol) rarely [facility] Utilities Answer Date Recorded In the past 12 months has th [employer] electric, gas, oil, or water company threatened [...] often do you attend chur ch or alevism services? 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 on file [...] PM EDT Sa stephen Ireland RN * Do you have serious [...] Entry Date Author No 01/25/2017 3:55 PM RAMONT Osmany Ireland RN documented in this encounter Plan of Treatment Upcoming Encounters Date Type Department Care Team (Latest Contact Info) Description 09/24/2024 6:00 PM EDT [facility] Family Medicine [place] [address] [place] [address] Basim White MD [address] [place] [address] 3 month follow up 11/28/2024 9:40 AM EDT [facility] Endocrinology [address] [address] [place] [address] [address] Type one diabetes pump and cgm follow up 12/20/2024 4:00 PM EDT [facility] [address] [place] [address] Christiana Sims PA-C [address] [place] [address] 6 Month follow up and yearly physical 03/04/2025 5:20 PM EST Office Visit [facility] [address] [place] [address] Basim White MD [address] [place] [address] 12 month follow up documented as of [...] Goal Reviewed on date: December 11, 2013 MOREAN JARA RN documented as of this encounter Visit Diagnoses Not on filedocumented in this encounter Care Teams Patient Account Analyst Relationship Specialty Start Date End Date Basim White MD [address] [place] [address] PCP - General Family Medicine 08/09/17 Nate Joyce DO Temporary Staff Accountant 02/09/13 Paulie Sandra MD [address] [phone] Primary Staff Physician Cardiology 07/04/18 Pascale Kc GEAR SHAPER SET UP OPERATOR.GRINDER SET UP OPERATOR [address] [place] [address] [facility] 03/26/24 07/04/24 Leeanne Balderas, GEAR SHAPER SET UP OPERATOR.GRINDER SET UP OPERATOR [address] [place] [address] [facility] Family [facility] 03/26/24 07/04/24 Juanita Luong PA-C [address] [place] [address] [facility] 03/26/24 07/04/24 Rubi Rodriguez, GEAR SHAPER SET UP OPERATOR.GRINDER SET UP OPERATOR [address] [place] [address] Hedge Fund Accountant Family Medicine 03/26/24 07/04/24 Christiana Sims PA-C [address] [place] [address] Hedge Fund Accountant Family Medicine 03/26/24 Tami Vazquez PA-C [address] [place] [address] [employer]edge [employer] Accountant Family Medicine 06/07/24 07/04/24 Juanita Luong PA-C [address] [place] [address] Hedge Fund Accountant Family Medicine 07/11/24 07/25/24 Awa Sanchez PA-C [address] [place] [address] Hedge Fund Accountant Internal Medicine 09/03/24 documented as of this encounter
--- OUTSIDE RECORDS SUMMARY | 2024-09-09 00:46 | XMS_ITS | Encounter Summary ---
Author Organization [facility] Address [address] [place], [place] [id number] Care Team Providers Care Midwife Practitioner Name Role Phone IsiahNate greenfield Cecelia OSBORNE Unavailable [phone] Basim White MD Primary Care Provider [phone] Paulie Sandra MD Unavailable Teagan Henriquez RN Unavailable [employer] COOKING INSTRUCTOR.COMPOSITION ROLL MAKER AND CUTTER Unavailable Leeanne Balderas COOKING INSTRUCTOR.COMPOSITION ROLL MAKER AND CUTTER Unavailable [phone] Juanita Luong PA-C Unavailable Rubi Rodriguez COOKING INSTRUCTOR.COMPOSITION ROLL MAKER AND CUTTER Unavailable Christiana Sims PA-C Unavailable Tami Vazquez PA-C Unavailable [phone] Juanita Luong PA-C Unavailable Awa Sanchez PA-C Unavailable Source Comments In the event this information is protected by the Federal Confidentiality of Alcohol and Drug AbusePatient Records regulations: The Federal rules restrict any use of the information to criminally investigate or prosecute any alcohol or drug abuse patient.[facility] Encounter Details Date Type Department Care Team (Late Contact Info) Description 10/26/2021 Get Medical Advice Endocrinology [address] [place] [address] [place] [address] [place] [address] Metformin Social History Tobacco Use Types Packs/Day Years [...] How often do you attend chur or christianity services? More than 4 times per year 09/29/2019 Do you belong to any clubs o r organizations such as catholic groups, unions, fraternal or athletic groups, or school groups? No 09/29/2019 How often do you attend meet ings of the clubs or organizations you belong to? Never 09/29/2019 Are you , , di vorced, , never , or living with a partner? 09/29/2019 PHQ-2 Answer Date Recorded PHQ-2 score 5 03/03/2021 [facility] of Occupat ional Health - [...] slept in a half-way (including now)? No 03/03/2021 Area Deprivation Index Answer Date Sergio rded National Score (1-100), lower number is lower ri sk 70 10/14/2021 State Score (1-10), lower number is lower risk N ot on file 10/14/2021 Data from: https://www.neighborhoodatlas.medicine.[facility].edu/. Last address used for calculation [address] [...] Industry Job Start Date Job End Date [employer] Not on file Not on file Not on file disability since 07/2015 (off work since 11/2013) Not on file Not on file Not on file COVID-19 Exposure Response Date Recorded In the last 10 days, have yo u been in contact with someone who was confirmed or suspected to have Coronavirus/COVID-19? No / Unsure 10/14/2021 11:38 AM EDT documented as of this encounter [...] Info) Description 09/24/2024 6:00 PM EDT [address] [address] Basim White MD [address] [place] [address] 3 month follow up 11/28/2024 9:40 AM EDT [facility] Endocrinology [place] [address] [place] [address] [place] [address] [address] Type one diabetes pump and cgm follow up 12/20/2024 4:00 PM EDT [address] [address] Christiana Sims PA-C [address] [place] [address] 6 Month follow up and yearly physical 03/04/2025 5:20 PM EST Office Visit [address] [address] Basim White MD [address] [place] [address] 12 month follow up documented as of [...] on filedocumented in this encounter Care Teams Midwife Practitioner Relationship Specialty Start Date End Date Basim White MD [address] [place] [address] PCP - General Family Medicine 08/09/17 Nate Joyce DO Sewage Treatment Plant Operator 02/09/13 Paulie Sandra MD [address] [phone] Primary Staff Physician Cardiology 07/04/18 Teagan Henriquez, RN [address] [id number] Primary Care Tar Heat Exchanger Cleaner Internal Medicine 06/22/23 07/21/23 [employer] K[employer], COOKING INSTRUCTOR.COMPOSITION ROLL MAKER AND CUTTER [address] [place] [address] Carbon Capture Power Plant Manager Family Medicine 03/26/24 07/04/24 Leeanne Balderas, COOKING INSTRUCTOR.COMPOSITION ROLL MAKER AND CUTTER [address] [place] [address] [facility] Family Medicine 03/26/24 07/04/24 Juanita Luong PA-C [address] [place] [address] [facility] Family Medicine 03/26/24 07/04/24 Rubi Rodriguez, COOKING INSTRUCTOR.COMPOSITION ROLL MAKER AND CUTTER [address] [place] [address] Carbon Capture Power Plant Manager Family Medicine 03/26/24 07/04/24 Christiana Sims PA-C [address] [place] [address] Carbon Capture Power Plant Manager Family Medicine 03/26/24 Tami Vazquez PA-C [address] [place] [address] Carbon Capture Power Plant Manager Family Medicine 06/07/24 07/04/24 Juanita Luong PA-C [address] [place] [address] Carbon Capture Power Plant Manager Family Medicine 07/11/24 07/25/24 Awa Sanchez PA-C [facility] [place] [phone] Carbon Capture Power Plant Manager Internal Medicine 09/03/24 documented as of this encounter
--- OUTSIDE RECORDS SUMMARY | 2024-09-09 00:46 | XMS_ITS | Encounter Summary ---
Author Organization [facility] Address [address] [place], [place] [address] Care Team Providers Care Gas Collection System Operator Name Role Phone IsiahNate greenfield Cecelia OSBORNE Unavailable [phone] Basim White MD Primary Care Provider Paulie Sandra MD Unavailable Teagan Henriquez RN Unavailable [employer] STRINGING MACHINE TENDER.CHIEF JUVENILE PROBATION OFFICER Unavailable Leeanne Balderas STRINGING MACHINE TENDER.CHIEF JUVENILE PROBATION OFFICER Unavailable [phone] Juanita Luong PA-C Unavailable Rubi Rodriguez STRINGING MACHINE TENDER.CHIEF JUVENILE PROBATION OFFICER Unavailable Christiana Sims PA-C Unavailable Tami Vazquez PA-C Unavailable [phone] Juanita Luong PA-C Unavailable Awa Sanchez PA-C Unavailable Source Comments In the event this information is protected by the Federal Confidentiality of Alcohol and Drug AbusePatient Records regulations: The Federal rules restrict any use of the information to criminally investigate or prosecute any alcohol or drug abuse patient.[facility] Encounter Details Date Type Department Care Team (Late st Contact Info) Description 01/14/2022 Get Medical Advice Family Medicine [place] [address] [place], [place] [phone] Basim White MD [address] [place], [place] [id number] Study Social History Tobacco Use Types Packs/Day [...] Answer Date Recorded PHQ-2 score 5 03/03/2021 [facility] of Occupat ional Health - Occupational Stress [...] or slept in a mcc (including now)? No 03/03/2021 Area Deprivation Index Answer Date Sergio rded National Score (1-100), lower number is lower ri sk 70 10/14/2021 State Score (1-10), lower number is lower risk N ot on file 10/14/2021 Data from: https://www.neighborhoodatlas.medicine.[facility].edu/. 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 No / Unsure 01/12/2022 3:55 PM EDT documented as of this encounter [...] Info) Description 09/24/2024 6:00 PM EDT [address] [address] Basim White MD [address] [place] [address] 3 month follow up 11/28/2024 9:40 AM EDT [facility] Endocrinology [place] [address] [place] [address] [place] [address] [address] Type one diabetes pump and cgm follow up 12/20/2024 4:00 PM EDT [address] [address] Christiana Sims PA-C [address] [place] [address] 6 Month follow up and yearly physical 03/04/2025 5:20 PM EST Office Visit [address] [address] Basim White MD [address] [place] [address] 12 month follow up documented as of [...] syndrome documented in this encounter Care Teams Gas Collection System Operator Relationship Specialty Start Date End Date Basim White MD [address] [place] [address] PCP - General Family Medicine 08/09/17 Nate Joyce DO Dude Ranch Manager 02/09/13 Paulie Sandra MD [address] [address] Primary Staff Physician Cardiology 07/04/18 Teagan Henriquez, RN [address] [phone] Primary Care Special Education Teaching Assistant Internal Medicine 06/22/23 07/21/23 [employer], STRINGING MACHINE TENDER.CHIEF JUVENILE PROBATION OFFICER [address] [place] [address] [facility] Family Medicine 03/26/24 07/04/24 Leeanne Balderas, STRINGING MACHINE TENDER.CHIEF JUVENILE PROBATION OFFICER [address] [place] [address] [facility] Family Medicine 03/26/24 07/04/24 Juanita Luong PA-C [address] [place] [address] [facility] Family Medicine 03/26/24 07/04/24 Rubi Rodriguez, STRINGING MACHINE TENDER.CHIEF JUVENILE PROBATION OFFICER [address] [place] [address] [facility] Family Medicine 03/26/24 07/04/24 Christiana Sims PA-C [address] [place] [address] [facility] Family Medicine 03/26/24 Tami Vazquez PA-C [address] [place] [address] [facility] Family Medicine 06/07/24 07/04/24 Juanita Luong PA-C [address] [place] [address] Medical Assistant Internal Medicine Family Medicine 07/11/24 07/25/24 Awa Sanchez PA-C [address] [place], [place] [phone] Medical Assistant Internal Medicine Internal Medicine 09/03/24 documented as of this encounter
--- OUTSIDE RECORDS SUMMARY | 2024-09-09 00:46 | XMS_ITS | Encounter Summary ---
Author Organization [facility] Address [address] [place], [place] [id number] Care Team Providers Care Crime Scene Investigator Name Role Phone IsiahNate greenfield Cecelia OSBORNE Unavailable [phone] Basim White MD Primary Care Provider Paulie Sandra MD Unavailable [phone] [employer] SOLAR ENERGY SYSTEMS DESIGNER.SENIOR SALES DIRECTOR Unavailable Leeanne Balderas SOLAR ENERGY SYSTEMS DESIGNER.SENIOR SALES DIRECTOR Unavailable [phone] Juanita Luong PA-C Unavailable Rubi Rodriguez SOLAR ENERGY SYSTEMS DESIGNER.SENIOR SALES DIRECTOR Unavailable Christiana Sims PA-C Unavailable Tami Vazquez PA-C Unavailable [phone] Juanita Luong PA-C Unavailable Awa Sanchez PA-C Unavailable Source Comments In the event this information is protected by the Federal Confidentiality of Alcohol and Drug AbusePatient Records regulations: The Federal rules restrict any use of the information to criminally investigate or prosecute any alcohol or drug abuse patient.[facility] Encounter Details Date Type Department Care Team (Late st Contact Info) Description 01/08/2024 Get Medical Advice Family Medicine [place] [address] [place] [place] [address] Basim White MD [address] [place], [place] [phone] Jan 08 Social History Tobacco Use Types Packs/Day Years Used Date Smoking Tobacco: Never Smokeless Tobacco: Never Alcohol Use Standard Drinks/Week Comments Yes 0 (1 standard drink = 0.6 oz pur e alcohol) rarely [facility] Utilities Answer Date Recorded In the past [...] How often do you attend [facility] or denominational services? 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 Do you want reschedule in person or VV? documented in this encounter Plan of Treatment Upcoming Encounters Date Type Department Care Team (Latest Contact Info) Description 09/24/2024 6:00 PM EDT [address] [address] Basim White MD [address] [place] [address] 3 month follow up 11/28/2024 9:40 AM EDT [facility] Endocrinology [place] [address] [place] [address] [place] [address] [address] Type one diabetes pump and cgm follow up 12/20/2024 4:00 PM EDT [address] [address] Christiana Sims PA-C [address] [place] [address] 6 Month follow up and yearly physical 03/04/2025 5:20 PM EST Office Visit [address] [address] Basim White MD [address] [place] [address] 12 month follow up documented as of [...] on filedocumented in this encounter Care Teams Crime Scene Investigator Relationship Specialty Start Date End Date Basim White MD [address] [place] [address] PCP - General Family Medicine 08/09/17 Nate Joyce DO Ropewalk Rope Maker 02/09/13 Paulie Sandra MD [address] [phone] Primary Staff Physician Cardiology 07/04/18 Pasc[employer] Kc, SOLAR ENERGY SYSTEMS DESIGNER.SENIOR SALES DIRECTOR [address] [place] [address] Collar Stay Fuser Tender Family Medicine 03/26/24 07/04/24 Leeanne Balderas, SOLAR ENERGY SYSTEMS DESIGNER.SENIOR SALES DIRECTOR [address] [place] [address] Collar Stay Fuser Tender Family Medicine 03/26/24 07/04/24 Juanita Luong PA-C [address] [place] [address] Collar Stay Fuser Tender Family Medicine 03/26/24 07/04/24 Rubi Rodriguez APRN.SENIOR SALES DIRECTOR [address] [place] [address] Collar Stay Fuser Tender Family Medicine 03/26/24 07/04/24 Christiana Sims PA-C [address] [place] [address] Collar Stay Fuser Tender Family Medicine 03/26/24 Tami Vazquez PA-C [address] [place] [address] Collar Stay Fuser Tender Family Medicine 06/07/24 07/04/24 Juanita Luong PA-C [address] [place] [address] Collar Stay Fuser Tender Family Medicine 07/11/24 07/25/24 Awa Sanchez PA-C [address] [place] [address] Collar Stay Fuser Tender Internal Medicine 09/03/24 documented as of this encounter
--- OUTSIDE RECORDS SUMMARY | 2024-09-09 00:46 | XMS_ITS | Encounter Summary ---
Author Organization [facility] Address [address] [place], [place] [address] Care Team Providers Care Supervisor Malted Milk Name Role Phone IsiahNate greenfield Cecelia OSBORNE Unavailable [phone] Basim White MD Primary Care Provider [phone] Paulie Sandra MD Unavailable [employer] EXECUTIVE SALES ASSISTANT.STAMP PRESSER Unavailable Leeanne Balderas EXECUTIVE SALES ASSISTANT.STAMP PRESSER Unavailable [phone] Juanita Luong PA-C Unavailable Rubi Rodriguez EXECUTIVE SALES ASSISTANT.STAMP PRESSER Unavailable Christiana Sims PA-C Unavailable Tami Vazquez PA-C Unavailable [phone] Juanita Luong PA-C Unavailable Awa Sanchez PA-C Unavailable Source Comments In the event this information is protected by the Federal Confidentiality of Alcohol and Drug AbusePatient Records regulations: The Federal rules restrict any use of the information to criminally investigate or prosecute any alcohol or drug abuse patient.[facility] Encounter Details Date Type Department Care Team (Late st Contact Info) Description 11/25/2023 Get Medical Advice [facility] [address] [place] [address] [place] [address] [facility] [address] [place] [address] [employer] Social History Tobacco Use Types Packs/Day Years Used Date Smoking Tobacco: Never Smokeless Tobacco: Never Alcohol Use Standard Drinks/Week Comments Yes 0 (1 standard drink = 0.6 oz pur e alcohol) rarely [facility] Utilities Answer Date Recorded In the [...] often do you attend chur ch or orthodoxy services? More than 4 times per year 05/20/2023 Do you belong to any clubs o r organizations such as jain groups, unions, fraternal or athletic groups, or [...] Answer Date Recorded PHQ-2 score 6 11/14/2023 [facility] [place] of Occupat ional Health - Occupational Stress [...] slept in a long-term (including now)? No 06/20/2023 Area Deprivation Index Answer Date Sergio rded National Score (1-100), lower number is lower ri sk 79 08/26/2022 State Score (1-10), lower number is lower risk 7 08/26/2022 Data from: https://www.neighborhoodatlas.medicine.[facility].edu/. Last address used for calculation [address] [...] Industry Job Start Date Job End Date [employer] Not on file Not on file Not [...] Date Author No 01/25/2017 3:55 PM EDT Sa stephen Ireland RN documented in this encounter Miscellaneous Notes * Telephone Encounter - Agata Sommers RN - 12/02/2023 11:48 AM EDT Meter and Dexcom Sensor at manager front 3rd floor documented in this encounter Plan of Treatment Upcoming Encounters Date Type Department Care Team (Latest Contact Info) Description 09/24/2024 6:00 PM EDT [address] [address] Basim White MD [address] [place] [address] 3 month follow up 11/28/2024 9:40 AM EDT [facility] Endocrinology [place] [address] [place] [address] [place] [address] [address] Type one diabetes pump and cgm follow up 12/20/2024 4:00 PM EDT [address] [address] Christiana Sims PA-C [address] [place] [address] 6 Month follow up and yearly physical 03/04/2025 5:20 PM EST Office Visit [address] [address] Basim White MD [address] [place] [address] 12 month follow up documented as of [...] filedocumented in this encounter Care Teams Supervisor Malted Milk Relationship Specialty Start Date End Date Basim White MD [address] [place] [address] PCP - General Family Medicine 08/09/17 Nate Joyce DO Metal Annealer 02/09/13 Paulie Sandra MD [address] [phone] Primary Staff Physician Cardiology 07/04/18 [employer] K[employer], EXECUTIVE SALES ASSISTANT.STAMP PRESSER [address] [place] [address] Child Nurse Family Medicine 03/26/24 07/04/24 Leeanne Balderas EXECUTIVE SALES ASSISTANT.STAMP PRESSER [address] [place] [address] Child Nurse Family Medicine 03/26/24 07/04/24 Juanita Luong PA-C [address] [place] [address] Child Nurse Family Medicine 03/26/24 07/04/24 Rubi Rodriguez APRN.CNP [address] [place] [address] Child Nurse Family Medicine 03/26/24 07/04/24 Christiana Sims PA-C [address] [place] [phone] Child Nurse Family Medicine 03/26/24 Tami Vazquez PA-C [address] [place] [address] Child Nurse Family Medicine 06/07/24 07/04/24 Juanita Luong PA-C [address] [place] [address] Child Nurse Family Medicine 07/11/24 07/25/24 Awa Sanchez PA-C [address] [place] [phone] Child Nurse Internal Medicine 09/03/24 documented as of this encounter
--- OUTSIDE RECORDS SUMMARY | 2024-09-09 00:47 | XMS_ITS | Encounter Summary ---
Author Organization [facility] Address [address] [place], [place] [address] Care Team Providers Care Advanced Manufacturing Technician Name Role Phone IsiahNate greenfield Ceceila OSBORNE Unavailable [phone] Basim White MD Primary Care Provider Paulie Sandra MD Unavailable Teagan Henriquez RN Unavailable [employer] KENNEL AIDE.SPECIAL PROCEDURES TECH Unavailable Leeanne Balderas KENNEL AIDE.SPECIAL PROCEDURES TECH Unavailable [phone] Juanita Luong PA-C Unavailable Rubi Rodriguez KENNEL AIDE.SPECIAL PROCEDURES TECH Unavailable Christiana Sims PA-C Unavailable Tami Vazquez PA-C Unavailable [phone] Juanita Luong PA-C Unavailable Awa Sanchez PA-C Unavailable Source Comments In the event this information is protected by the Federal Confidentiality of Alcohol and Drug AbusePatient Records regulations: The Federal rules restrict any use of the information to criminally investigate or prosecute any alcohol or drug abuse patient.[facility] Encounter Details Date Type Department Care Team (Kathryn saini Contact Info) Description 04/17/2020 Patient Msg Neurology [address] [place] [address] Provider, [facility] Appointment Reminder Social History Tobacco Use Types Packs/Day Years [...] often do you attend chur ch or islam services? More than 4 times per year [...] Answer Date Recorded PHQ-2 score 0 02/04/2020 [facility] - Occupational Stress Questionnaire Answer Date [...] slept in a skilled nursing (including now)? Patient refused 03/22/2020 Area Deprivation Index Answer Date Sergio rded National Score (1-100), lower number is lower ri sk Not on file 03/22/2020 State Score (1-10), lower number is lower risk N ot on file 03/22/2020 Data from: https://www.neighborhoodatlas.medicine.[facility].edu/. 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 No / Unsure 04/16/2020 9:38 AM EST documented as of this encounter Functional [...] Info) Description 09/24/2024 6:00 PM EDT [address] [address] Basim White MD [address] [place] [address] 3 month follow up 11/28/2024 9:40 AM EDT [facility] Endocrinology [place] [address] [place] [address] [place] [address] [address] Type one diabetes pump and cgm follow up 12/20/2024 4:00 PM EDT [address] [address] Christiana Sims PA-C [address] [place] [address] 6 Month follow up and yearly physical 03/04/2025 5:20 PM EST Office Visit [address] [address] Basim White MD [address] [place] [address] 12 month follow up documented as of [...] documented as of this encounter Care Teams Advanced Manufacturing Technician Relationship Specialty Start Date End Date Basim White MD [address] [place] [address] PCP - General Family Medicine 08/09/17 Nate Joyce DO Program Director Group Work 02/09/13 Paulie Sandra MD [address] [phone] Primary Staff Physician Cardiology 07/04/18 Teagan Henriquez, RN [address]000 [place] [address] Primary Care Suit Maker Internal Medicine 06/22/23 07/21/23 Pascale Kc KENNEL AIDE.SPECIAL PROCEDURES TECH [address] [place] [address] Tipple Engineer Family Medicine 03/26/24 07/04/24 Leeanne Balderas, KENNEL AIDE.SPECIAL PROCEDURES TECH [address] [place] [address] Tipple Engineer Family Medicine 03/26/24 07/04/24 Juanita Luong PA-C [address] [place] [address] Tipple Engineer Family Medicine 03/26/24 07/04/24 Rubi Rodriguez, KENNEL AIDE.SPECIAL PROCEDURES TECH [address] [place] [address] Tipple Engineer Family Medicine 03/26/24 07/04/24 Christiana Sims PA-C [address] [place] [address] Tipple Engineer Family Medicine 03/26/24 Tami Vazquez PA-C [address] [place] [address] Tipple Engineer Family Medicine 06/07/24 07/04/24 Juanita Luong PA-C [address] [place] [address] Tipple Engineer Family Medicine 07/11/24 07/25/24 Awa Sanchez PA-C [address] [place], [place] [phone] Tipple Engineer Internal Medicine 09/03/24 documented as of this encounter
--- OUTSIDE RECORDS SUMMARY | 2024-09-09 00:47 | XMS_ITS | Encounter Summary ---
Author Organization [facility] Address [address] [place], [place] [address] Care Team Providers Care Student Education Specialist Name Role Phone IsiahNate greenfield Cecelia OSBORNE Unavailable [phone] Basim White MD Primary Care Provider Paulie Sandra MD Unavailable Teagan Henriquez RN Unavailable Pascale Kc METAL TANK BUILDER.SECURITY SYSTEMS ADMINISTRATOR Unavailable Leeanne Balderas METAL TANK BUILDER.SECURITY SYSTEMS ADMINISTRATOR Unavailable [phone] Juanita Luong PA-C Unavailable Rubi Rodriguez METAL TANK BUILDER.SECURITY SYSTEMS ADMINISTRATOR Unavailable Christiana Sims PA-C Unavailable Tami Vazquez PA-C Unavailable [phone] Juanita Luong PA-C Unavailable Awa Sanchez PA-C Unavailable Source Comments In the event this information is protected by the Federal Confidentiality of Alcohol and Drug AbusePatient Records regulations: The Federal rules restrict any use of the information to criminally investigate or prosecute any alcohol or drug abuse patient.[facility] Encounter Details Date Type Department Care Team (Late st Contact Info) Description 04/16/2020 Patient Msg General Surgery [address] [place] [address] Dior Martinez, METAL TANK BUILDER.STRIPPING MACHINE OPERATOR [address] [place] [address] Bariatric Surgery Social History Tobacco Use Types Packs/Day Years [...] often do you attend chur ch or bahai services? More than 4 times per year 09/29/2019 Do you belong to any clubs o r organizations such as advent groups, unions, fraternal or athletic groups, or school groups? No 09/29/2019 How often do you attend meet ings of the clubs or organizations you belong to? Never 09/29/2019 Are you , , di vorced, , never , or living with a partner? 09/29/2019 PHQ-2 Answer Date Recorded PHQ-2 score 0 02/04/2020 [facility] of Occupat ional Health - Occupational [...] or slept in a fpc (including now)? Patient refused 03/22/2020 Area Deprivation Index Answer Date Sergio rded National Score (1-100), lower number is lower ri sk Not on file 03/22/2020 State Score (1-10), lower number is lower risk N ot on file 03/22/2020 Data from: https://www.neighborhoodatlas.medicine.[facility].edu/. Last address used for calculation Not [...] Industry Job Start Date Job End Date [employer] Not on file Not on file Not [...] Contact Info) Description 09/24/2024 6:00 PM EDT [address] [address] Basim White MD [address] [place] [address] 3 month follow up 11/28/2024 9:40 AM EDT [facility] Endocrinology [place] [address] [place] [address] [place] [address] [address] Type one diabetes pump and cgm follow up 12/20/2024 4:00 PM EDT [address] [address] Christiana Sims PA-C [address] [place] [address] 6 Month follow up and yearly physical 03/04/2025 5:20 PM EST Office Visit [address] [address] Basim White MD [address] [place] [address]348 12 month follow up documented as of [...] documented as of this encounter Care Teams Student Education Specialist Relationship Specialty Start Date End Date Basim White MD [address] [id number] PCP - General Family Medicine 08/09/17 Nate Joyce DO Steward[employer] Dining Car 02/09/13 Paulie Sandra MD [address] [phone] Primary Staff Physician Cardiology 07/04/18 Teagan Henriquez, RN [address] [place] [address] Primary Care Lunchroom Supervisor Internal Medicine 06/22/23 07/21/23 Pascale Kc, METAL TANK BUILDER.SECURITY SYSTEMS ADMINISTRATOR [address] [place] [address] Adjuster Leader Family Medicine 03/26/24 07/04/24 Leeanne Balderas, METAL TANK BUILDER.SECURITY SYSTEMS ADMINISTRATOR [address] [place] [address] Adjuster Leader Family Medicine 03/26/24 07/04/24 Juanita Luong PA-C [address] [place] [address] Adjuster Leader Family Medicine 03/26/24 07/04/24 Rubi Rodriguez, METAL TANK BUILDER.SECURITY SYSTEMS ADMINISTRATOR [address] [place] [address] Adjuster Leader Family Medicine 03/26/24 07/04/24 Christiana Sims PA-C [address] [place] [address] Adjuster Leader Family Medicine 03/26/24 Tami Vazquez PA-C [id number] [place] [address] Adjuster Leader Family Medicine 06/07/24 07/04/24 Juanita Luong PA-C [address] [place] [address] Adjuster Leader Family Medicine 07/11/24 07/25/24 Awa Sanchez PA-C [address] [place] [address] Adjuster Leader Internal Medicine 09/03/24 documented as of this encounter
--- OUTSIDE RECORDS SUMMARY | 2024-09-09 00:47 | XMS_ITS | Encounter Summary ---
Author Organization [facility] Address [address] [place], [place] [address] Care Team Providers Care General Duty Nurse Name Role Phone Nate Joyce Unavailable [phone] Basim White MD Primary Care Provider [phone] Paulie Sandra MD Unavailable Paulie Sandra MD Unavailable [phone] Teagan Henriquez RN Unavailable [employer] K[employer] INTERMODAL OWNER OPERATOR TRUCK DRIVER.[employer]IFTER [employer] MILLER Unavailable Leeanne Balderas INTERMODAL OWNER OPERATOR TRUCK DRIVER.[employer] Unavailable [phone] Juanita Luong PA-C Unavailable Rubi Rodriguez INTERMODAL OWNER OPERATOR TRUCK DRIVER.[employer] Unavailable Christiana Sims PA-C Unavailable Tami Vazquez PA-C Unavailable [phone] Juanita Luong PA-C Unavailable Awa Sanchez [...] Care Team (Late st Contact Info) Description 11/10/2017 Patient Msg Endocrinology [address] [place], [place] [phone] Provider, Ccf Upcoming Endocrinology Appointment Social History [...] Industry Job Start Date Job End Date [employer] Not on file Not on file Not [...] Info) Description 09/24/2024 6:00 PM EDT [address] [address] Basim White MD [address] [place] [address] 3 month follow up 11/28/2024 9:40 AM EDT [facility] Endocrinology [place] [address] [place] [phone] [place] [address] [address] Type one diabetes pump and cgm follow up 12/20/2024 4:00 PM EDT [address] [address] Christiana Sims PA-C [address] [place] [address] 6 Month follow up and yearly physical 03/04/2025 5:20 PM EST Office Visit [address] [address] Basim White MD [address] [place] [address] 12 month follow up documented as of [...] documented as of this encounter Care Teams General Duty Nurse Relationship Specialty Start Date End Date Basim White MD [address] [place] [address] PCP - General Family Medicine 08/09/17 Nate Joyce DO Bridge Construction Inspector 02/09/13 Paulie Sandra MD [address] [phone] Primary Staff Physician Cardiology 07/04/1807/04 Paulie Sandra MD [address] [facility] [address] [place] [address] Primary Staff Physician Cardiology 07/04/18 Teagan Henriquez, RN [address] [phone] Primary Care Filling Hauler Weaving Internal Medicine 06/22/23 07/21/23 Pasc[employer] Kc, INTERMODAL OWNER OPERATOR TRUCK DRIVER.[employer] [address] [place] [address] Counts Include [facility] 03/26/24 07/04/24 Leeanne Balderas, INTERMODAL OWNER OPERATOR TRUCK DRIVER.[employer]TER [employer] MILLER [address] [place] [address] Counts Include [facility] 03/26/24 07/04/24 Juanita Luong PA-C [address] [place] [address] Counts Include [facility] 03/26/24 07/04/24 Rubi Rodriguez, INTERMODAL OWNER OPERATOR TRUCK DRIVER.[employer]TER [employer] MILLER [address] [place] [address] [facility] Family [facility] 03/26/24 07/04/24 Christiana Sims PA-C [address] [place] [address] [facility] Family [facility] 03/26/24 Tami Vazquez PA-C [address] [place] [address] [facility] Family [facility] 06/07/24 07/04/24 Juanita Luong PA-C [address] [place] [address] Reflector Driller And Deburrer Family Medicine 07/11/24 07/25/24 Awa Sanchez PA-C [address] [place], [place] [phone] Reflector Driller And Deburrer Internal Medicine 09/03/24 documented as of this encounter
--- OUTSIDE RECORDS SUMMARY | 2024-09-09 00:47 | XMS_ITS | Encounter Summary ---
Author Organization [facility] Address [address] [place], [place] [address] Care Team Providers Care Paper Stripper Name Role Phone IsiahNate greenfield Cecelia OSBORNE Unavailable [phone] Basim White MD Primary Care Provider Paulie Sandra MD Unavailable Teagan Henriquez RN Unavailable [employer] K[employer] GENERAL UTILITY MAINTENANCE REPAIRER.NICU RN Unavailable Leeanne Balderas GENERAL UTILITY MAINTENANCE REPAIRER.NICU RN Unavailable [phone] Juanita Luong PA-C Unavailable Rubi Rodriguez GENERAL UTILITY MAINTENANCE REPAIRER.NICU RN Unavailable Christiana Sims PA-C Unavailable Tami Vazquez PA-C Unavailable [phone] Juanita Luong PA-C Unavailable Awa Sanchez PA-C Unavailable Source Comments In the event this information is protected by the Federal Confidentiality of Alcohol and Drug AbusePatient Records regulations: The Federal rules restrict any use of the information to criminally investigate or prosecute any alcohol or drug abuse patient.[facility] Encounter Details Date Type Department Care Team (Kathryn saini Contact Info) Description 03/28/2020 Patient Msg Neurology [address] [place] [address] Shilpa Castaneda APRN.NICU RN, PhD [address] [place] [address] RE: Appointment Cancellation Request Social History Tobacco [...] often do you attend chur ch or congregational services? More than 4 times [...] Answer Date Recorded PHQ-2 score 0 02/04/2020 [facility] of Occupat ional Health - Occupational Stress [...] slept in a senior living (including now)? Patient refused 03/22/2020 Area Deprivation [...] Industry Job Start Date Job End Date [employer] Not on file Not on file Not on file disability since 07/2015 (off work since 11/2013) Not on file Not on file Not on file COVID-19 Exposure Response Date Recorded In the last month, have you been in contact with someone who was confirmed or suspected to have Coronavirus / COVID-19? Unable to assess 03/28/2020 1:50 PM EST documented as of this encounter [...] Info) Description 09/24/2024 6:00 PM EDT [address] [address] Basim White MD [address] [place] [address] 3 month follow up 11/28/2024 9:40 AM EDT [facility] Endocrinology [place] [address] [place] [phone] [place] [address] [address] Type one diabetes pump and cgm follow up 12/20/2024 4:00 PM EDT [address] [address] Christiana Sims PA-C [address] [place] [address] 6 Month follow up and yearly physical 03/04/2025 5:20 PM EST Office Visit [address] [address] Basim White MD [address] [place] [address] 12 month follow up documented as of [...] documented as of this encounter Care Teams Paper Stripper Relationship Specialty Start Date End Date Basim White MD [address] [place] [address] PCP - General Family Medicine 08/09/17 Nate Joyce DO Billboard Mechanic 02/09/13 Paulie Sandra MD [address] [phone] Primary Staff Physician Cardiology 07/04/18 Teagan Henriquez, RN [address] [place] [address] Primary Care Recordings Librarian Internal Medicine 06/22/23 07/21/23 Pascale Kc, GENERAL UTILITY MAINTENANCE REPAIRER.NICU RN [phone] [place] [address] Aircraft Engine Specialist Family Medicine 03/26/24 07/04/24 Leeanne Balderas, GENERAL UTILITY MAINTENANCE REPAIRER.NICU RN [address] [place] [address] Aircraft Engine Specialist Family Medicine 03/26/24 07/04/24 Juanita Luong PA-C [address] [place] [address] Aircraft Engine Specialist Family Medicine 03/26/24 07/04/24 Rubi Rodriguez, GENERAL UTILITY MAINTENANCE REPAIRER.NICU RN [address] [place] [address] Aircraft Engine Specialist Family Medicine 03/26/24 07/04/24 Christiana Sims PA-C [address] [place] [address] Aircraft Engine Specialist Family Medicine 03/26/24 Tami Vazquez PA-C [id number] [place] [address] Aircraft Engine Specialist Family Medicine 06/07/24 07/04/24 Juanita Luong PA-C [address] [place] [address] Aircraft Engine Specialist Family Medicine 07/11/24 07/25/24 Awa Sanchez PA-C [address] [place] [address] Aircraft Engine Specialist Internal Medicine 09/03/24 documented as of this encounter
--- OUTSIDE RECORDS SUMMARY | 2024-09-09 00:47 | XMS_ITS | Encounter Summary ---
Author Organization [facility] Address [address] [place], [place] [address] Care Team Providers Care Accounts Payable Lead Name Role Phone Nate Joyce Unavailable [phone] Basim White MD Primary Care Provider [phone] Paulie Sandra MD Unavailable Paulie Sandra MD Unavailable [phone] Teagan Henriquez RN Unavailable Pascale Kc EQUAL EMPLOYMENT OPPORTUNITY OFFICER.RETAIL PLANNING MANAGER Unavailable Leeanne Balderas EQUAL EMPLOYMENT OPPORTUNITY OFFICER.RETAIL PLANNING MANAGER Unavailable [phone] Juanita Luong PA-C Unavailable Rubi Rodriguez EQUAL EMPLOYMENT OPPORTUNITY OFFICER.RETAIL PLANNING MANAGER Unavailable Christiana Sims PA-C Unavailable Tami Vazquez PA-C Unavailable [phone] Juanita Luong PA-C Unavailable Awa Sanchez PA-C Unavailable Source Comments In the event this information is protected by the Federal Confidentiality of Alcohol and Drug AbusePatient Records regulations: The Federal rules restrict any use of the information to criminally investigate or prosecute any alcohol or drug abuse patient.[facility] Encounter Details Date Type Department Care Team (Late st Contact Info) Description 11/11/2017 Patient Msg Neurology [address] [place] [address] Provider, Ccf Confirming Sleep Study Social History Tobacco Use Types [...] 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 Not on file Not [...] Info) Description 09/24/2024 6:00 PM EDT [address] [address] Basim White MD [address] [place] [address] 3 month follow up 11/28/2024 9:40 AM EDT [facility] Endocrinology [place] [address] [place] [phone] [place] [address] [address] Type one diabetes pump and cgm follow up 12/20/2024 4:00 PM EDT [address] [address] Christiana Sims PA-C [address] [place] [address] 6 Month follow up and yearly physical 03/04/2025 5:20 PM EST Office Visit [address] [address] Basim White MD [address] [place] [address] 12 month follow up documented as of [...] documented as of this encounter Care Teams Accounts Payable Lead Relationship Specialty Start Date End Date Basim White MD [address] [place] [address] PCP - General Family Medicine 08/09/17 Nate Joyce DO Sales Training Manager 02/09/13 Paulie Sandra MD [address] [address] Primary Staff Physician Cardiology 07/04/1807/04 Paulie Sandra MD [address] [facility] [address] [place] [address] Primary Staff Physician Cardiology 07/04/18 Teagan Henriquez, RN [address] [phone] Primary Care Fitter'S Assistant Internal Medicine 06/22/23 07/21/23 Pascale Kc, EQUAL EMPLOYMENT OPPORTUNITY OFFICER.RETAIL PLANNING MANAGER [address] [place] [address] [facility] Family Medicine 03/26/24 07/04/24 Leeanne Balderas, EQUAL EMPLOYMENT OPPORTUNITY OFFICER.RETAIL PLANNING MANAGER [address] [place] [address] [facility] 03/26/24 07/04/24 Juanita Luong PA-C [address] [place] [address] [facility] Family [facility] 03/26/24 07/04/24 Rubi Rodriguez, EQUAL EMPLOYMENT OPPORTUNITY OFFICER.RETAIL PLANNING MANAGER [address] [place] [address] [facility] Family Medicine 03/26/24 07/04/24 Christiana Sims PA-C [address] [place] [address] [facility] Family [facility] 03/26/24 Tami Vazquez PA-C [address] [place] [address] [facility] Family Medicine 06/07/24 07/04/24 Juanita Luong PA-C [address] [place] [address] Bed And Breakfast Operator Family Medicine 07/11/24 07/25/24 Awa Sanchez PA-C [address] [place] [address] Bed And Breakfast Operator Internal Medicine 09/03/24 documented as of this encounter
--- OUTSIDE RECORDS SUMMARY | 2024-09-09 00:47 | XMS_ITS | Encounter Summary ---
Author Organization [facility] Address [address] [place], [place] [address] Care Team Providers Care Frog Or Oyster Farmworker Name Role Phone Nate Joyce Unavailable [phone] Basim White MD Primary Care Provider [phone] Paulie Sandra MD Unavailable Paulie Sandra MD Unavailable [phone] Teagan Henriquez RN Unavailable Pascale Kc HAIR OR BEAUTY SALON ASSISTANT.SKIDDER LEVER OPERATOR Unavailable Leeanne Balderas HAIR OR BEAUTY SALON ASSISTANT.SKIDDER LEVER OPERATOR Unavailable [phone] Juanita Luong PA-C Unavailable Rubi Rodriguez HAIR OR BEAUTY SALON ASSISTANT.SKIDDER LEVER OPERATOR Unavailable Christiana Sims PA-C Unavailable Tami Vazquez PA-C Unavailable [phone] Juanita Luong PA-C Unavailable Awa Sanchez PA-C Unavailable Source Comments In the event this information is protected by the Federal Confidentiality of Alcohol and Drug AbusePatient Records regulations: The Federal rules restrict any use of the information to criminally investigate or prosecute any alcohol or drug abuse patient.[facility] Encounter Details Date Type Department Care Team (Late st Contact Info) Description 09/21/2017 Get Medical Advice Family Medicine [place] [address] [place] [address] Basim White MD [address] [place], [place] [phone] RE: Visit Follow Up Question Social History [...] 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 file [...] of Assessment Author No 01/25/2017 3:55 PM RMAONT Osmany Ireland RN * Do you have [...] Info) Description 09/24/2024 6:00 PM EDT [address] [address] Basim White MD [address] [place] [address] 3 month follow up 11/28/2024 9:40 AM EDT [facility] Endocrinology [place] [address] [place] [address] [place] [address] [address] Type one diabetes pump and cgm follow up 12/20/2024 4:00 PM EDT [address] [address] Christiana Sims PA-C [address] [place] [address] 6 Month follow up and yearly physical 03/04/2025 5:20 PM EST Office Visit [address] [address] Basim White MD [address] [place] [address] 12 month follow up documented as of this encounter Goals Goal Patient Goal Type Associated Problems Recent Progress Patient-Stated? Author Care Coordination - Diabetes Care Coordination Counseling and coordination of care Choima Velarde RN Note: Knows type of diabetes. [...] documented as of this encounter Care Teams Frog Or Oyster Farmworker Relationship Specialty Start Date End Date Basim White MD [address] [place] [address] PCP - General Family Medicine 08/09/17 Nate Joyce DO Motor Scooter Repairer 02/09/13 Paulie Sandra MD [address] [phone] Primary Staff Physician Cardiology 07/04/1807/04 Paulie Sandra MD [address] [phone] Primary Staff Physician Cardiology 07/04/18 Teagan Henriquez, RN [address] [phone] Primary Care Life Trainer Internal Medicine 06/22/23 07/21/23 Pascale cK, HAIR OR BEAUTY SALON ASSISTANT.SKIDDER LEVER OPERATOR [address] [place] [address] Bag Machine Operator Helper Family Medicine 03/26/24 07/04/24 Leeanne Balderas, HAIR OR BEAUTY SALON ASSISTANT.SKIDDER LEVER OPERATOR [address] [place] [address] Bag Machine Operator Helper Family Medicine 03/26/24 07/04/24 Juanita Luong PA-C [address] [place] [address] Bag Machine Operator Helper Family Medicine 03/26/24 07/04/24 Rubi Rodriguez, HAIR OR BEAUTY SALON ASSISTANT.SKIDDER LEVER OPERATOR [address] [place] [address] Bag Machine Operator Helper Family Medicine 03/26/24 07/04/24 Christiana Sims PA-C [address] [place] [address] Bag Machine Operator Helper Family Medicine 03/26/24 Tami Vazquez PA-C [address] [place] [address] Bag Machine Operator Helper Family Medicine 06/07/24 07/04/24 Juanita Luong PA-C [address] [place] [address] Bag Machine Operator Helper Family Medicine 07/11/24 07/25/24 Awa Sanchez PA-C [facility]2 [place], [place] [address] Bag Machine Operator Helper Internal Medicine 09/03/24 documented as of this encounter
--- OUTSIDE RECORDS SUMMARY | 2024-09-09 00:47 | XMS_ITS | Clinical Summary ---
Author Organization [facility] Address [address] [place] [address] Care Team Providers Care Heat Treater Apprentice Name Role Phone Unavailable Primary Care Provider Unavailabl e Social History Tobacco Use Types Packs/Day Years Used Date Smoking Tobacco: Never Assessed Comments Unknown Sex and Gender Information Value Date Recorded Sex Assigned at Not on file Legal Sex Female 10:08 PM EDT Gender Identity Not on file Sexual Orientation Not on file Last Filed Vital Signs Vital Sign Reading Time Taken Comments Blood Pressure 135/84 10/12/2019 12:00 PM EDT Pulse - - Temperature - - Respiratory Rate - - Oxygen Saturation - - Inhaled Oxygen Concentration - - Weight 132 kg (291 lb) 10/12/2019 12:00 PM EDT Height 172.7 cm (5' 8 ) 10/12/2019 12:00 PM EDT Body Mass Index 44.25 10/12/2019 12:00 PM EDT Plan of Treatment Health Maintenance Due Date Last Done Comments Pap Smear 2001 Cervical Cancer Screening 2010 HPV/Cotest 2010 Mammogram 2020 02/01/2018 Influenza Vaccine (Season Ended) 2024 02/12/20 20, 01/19/2019 Insurance [place]ARE [place]
--- OUTSIDE RECORDS SUMMARY | 2024-09-09 00:47 | XMS_ITS | Encounter Summary ---
Author Organization [facility] Address [address] [place], [place] [address] Care Team Providers Care Locomotive Observer Name Role Phone Nate Joyce Unavailable [phone] Basim White MD Primary Care Provider [phone] Paulie Sandra MD Unavailable Paulie Sandra MD Unavailable Teagan Henriquez RN Unavailable [employer] CUSTOMER SERVICE TELLER.PEARL DIGGER Unavailable Leeanne Balderas CUSTOMER SERVICE TELLER.PEARL DIGGER Unavailable [phone] Juanita Luong PA-C Unavailable Rubi Rodriguez CUSTOMER SERVICE TELLER.PEARL DIGGER Unavailable Christiana Sims PA-C Unavailable Tami Vazquez PA-C Unavailable [phone] Juanita Luong PA-C Unavailable Awa Sanchez [...] Care Team (Late st Contact Info) Description 08/29/2017 Get Medical Advice Pulmonary Medicine [address] [place] [address] [place] [address] [place] [address] RE: Medication Question (Not Renewal) Social History [...] Industry Job Start Date Job End Date [employer] Not on file Not on file Not [...] Contact Info) Description 09/24/2024 6:00 PM EDT [address] [address] Basim White MD [address] [place] [address] 3 month follow up 11/28/2024 9:40 AM EDT [facility] Endocrinology [place] [address] [place] [id number] [place] [address] [address] Type one diabetes pump and cgm follow up 12/20/2024 4:00 PM EDT [address] [address] Christiana Sims PA-C [address] [place] [address] 6 Month follow up and yearly physical 03/04/2025 5:20 PM EST Office Visit [address] [address] Basim White MD [address] [place] [address]341 12 month follow up documented as of [...] documented as of this encounter Care Teams Locomotive Observer Relationship Specialty Start Date End Date Basim White MD [address] [place] [address] PCP - General Family Medicine 08/09/17 Nate Joyce DO Mortgage Lender 02/09/13 Paulie Sandra MD [address] [phone] Primary Staff Physician Cardiology 07/04/1807/04 Paulie Sandra MD [address] [address] Primary Staff Physician Cardiology 07/04/18 Teagan Henriquez, RN 6000 [place] [address] Primary Care Eviction Specialist Internal Medicine 06/22/23 07/21/23 [employer], CUSTOMER SERVICE TELLER.PEARL DIGGER [address] [place] [address] Parts Interpreter Family Medicine 03/26/24 07/04/24 Leeanne Balderas, CUSTOMER SERVICE TELLER.PEARL DIGGER [address] [place] [address] Parts Interpreter Family Medicine 03/26/24 07/04/24 Juanita Luong PA-C [address] [place] [address] Parts Interpreter Family Medicine 03/26/24 07/04/24 Rubi Rodriguez, CUSTOMER SERVICE TELLER.PEARL DIGGER [address] [place] [address] Parts Interpreter Family Medicine 03/26/24 07/04/24 Christiana Sims PA-C [address] [place] [address] Parts Interpreter Family Medicine 03/26/24 Tami Vazquez PA-C [address] [place] [address] Parts Interpreter Family Medicine 06/07/24 07/04/24 Juanita Luong PA-C [address] [place] [address] Parts Interpreter Family Medicine 07/11/24 07/25/24 Awa Sanchez PA-C [facility] [place], [place] [address] Parts Interpreter Internal Medicine 09/03/24 documented as of this encounter
--- OUTSIDE RECORDS SUMMARY | 2024-09-09 00:47 | XMS_ITS | Encounter Summary ---
Author Organization [facility] Address [address] [place], [place] [address] Care Team Providers Care Canvas Worker Apprentice Name Role Phone IsiahNate [place] Cecelia OSBORNE Unavailable [phone] Basim White MD Primary Care Provider Paulie Sandra MD Unavailable Teagan Henriquez RN Unavailable [employer] CORE WINDER.WEB PRODUCER Unavailable Leeanne Balderas CORE WINDER.WEB PRODUCER Unavailable [phone] Juanita Luong PA-C Unavailable Rubi Rodriguez CORE WINDER.WEB PRODUCER Unavailable Christiana Sims PA-C Unavailable Tami Vazquez PA-C Unavailable [phone] Juanita Luong PA-C Unavailable Awa Sanchez PA-C Unavailable Source Comments In the event this information is protected by the Federal Confidentiality of Alcohol and Drug AbusePatient Records regulations: The Federal rules restrict any use of the information to criminally investigate or prosecute any alcohol or drug abuse patient.[facility] Encounter Details Date Type Department Care Team (Kathryn saini Contact Info) Description 01/27/2022 Patient Msg Endocrinology [address] [place] [address] Provider, Ccf Free Exercsie Consult Social History Tobacco Use Types Packs/Day Years [...] How often do you attend chur or muslim services? More than 4 times per year [...] Answer Date Recorded PHQ-2 score 5 03/03/2021 [facility] of Occupat ional [facility] - Occupational Stress Questionnaire Answer Date [...] place to sleep or slept in a long term (including now)? No 03/03/2021 Area Deprivation Index Answer Date Sergio rded National Score (1-100), lower number is lower ri sk 70 10/14/2021 State Score (1-10), lower number is lower risk N ot on file 10/14/2021 Data from: https://www.neighborhoodatlas.medicine.[facility]/. Last address used for calculation [address] [...] Industry Job Start Date Job End Date [employer] Not on file Not on file Not on file disability since 07/2015 (off work since 11/2013) Not on file Not on file Not on file COVID-19 Exposure Response Date Recorded In the last 10 days, have yo u been in contact with someone who was confirmed or suspected to have Coronavirus/COVID-19? No / Unsure 01/18/2022 2:33 PM EDT documented as of this encounter [...] Info) Description 09/24/2024 6:00 PM EDT [address] [address] Basim White MD [address] [place] [address] 3 month follow up 11/28/2024 9:40 AM EDT [facility] Endocrinology [place] [address] [place] [address] [place] [address] [address] Type one diabetes pump and cgm follow up 12/20/2024 4:00 PM EDT [address] [address] Christiana Sims PA-C [address] [place] [address] 6 Month follow up and yearly physical 03/04/2025 5:20 PM EST Office Visit [address] [address] Basim White MD [address] [place] [address] 12 month follow up documented as of [...] on filedocumented in this encounter Care Teams Canvas Worker Apprentice Relationship Specialty Start Date End Date Basim White MD [address] [place] [address] PCP - General Family Medicine 08/09/17 Nate Joyce DO Manager Research 02/09/13 Paulie Sandra MD [address] [phone] Primary Staff Physician Cardiology 07/04/18 Teagan Henriquez, RN 6000 [place] [address] Primary Care Form Tamper Internal Medicine 06/22/23 07/21/23 [employer]asc[employer] K[employer], CORE WINDER.WEB PRODUCER [address] [place] [address] Chalk Cutter Family Medicine 03/26/24 07/04/24 Leeanne Balderas, CORE WINDER.WEB PRODUCER [address] [place] [address] [facility] Family [facility] 03/26/24 07/04/24 Juanita Luong PA-C [id number] [place] [address] [facility] Cutter Family Medicine 03/26/24 07/04/24 Rubi Rodriguez, CORE WINDER.WEB PRODUCER [address] [place] [address] [facility]utter Family Medicine 03/26/24 07/04/24 Christiana Sims PA-C [address] [place] [address] Chalk Cutter Family Medicine 03/26/24 Tami Vazquez PA-C [address] [place] [address] Chalk Cutter Family Medicine 06/07/24 07/04/24 Juanita Luong PA-C [address] [place] [address] Chalk Cutter Family Medicine 07/11/24 07/25/24 Awa Sanchez PA-C [address] [place] [address] Chalk Cutter Internal Medicine 09/03/24 documented as of this encounter
--- OUTSIDE RECORDS SUMMARY | 2024-09-09 00:47 | XMS_ITS | Encounter Summary ---
Author Organization [facility] Address [address] [place], [place] [address] Care Team Providers Care Rim Buster Name Role Phone IsiahNate [place] Cecelia OSBORNE Unavailable [phone] Basim White MD Primary Care Provider Paulie Sandra MD Unavailable Teagan Henriquez RN Unavailable [employer] FEDERAL DISTRICT CLERK.GRAZING EXAMINER Unavailable Leeanne Balderas FEDERAL DISTRICT CLERK.GRAZING EXAMINER Unavailable [phone] Juanita Luong PA-C Unavailable Rubi Rodriguez FEDERAL DISTRICT CLERK.GRAZING EXAMINER Unavailable Christiana Sims PA-C Unavailable Tami Vazquez PA-C Unavailable [phone] Juanita Luong PA-C Unavailable Awa Sanchez [...] Care Team (Kathryn saini Contact Info) Description 06/11/2020 Get Medical Advice General Surgery BMI [address] [place] [address] Provider, Ccf RE: Visit Follow Up Question Social History [...] How often do you attend chur or bahai services? More than 4 times [...] Answer Date Recorded PHQ-2 score 0 02/04/2020 [facility] of Occupat ional Health - Occupational Stress [...] mortgage or rent on time? Patient refused 12/05/20 20 Number of Places Lived in the Last Year Not on f ile 03/22/2020 In the last 12 months, was t here a time when you did not have a steady place to sleep or slept in a alf (including now)? Patient refused 03/22/2020 Area Deprivation Index Answer Date Sergio rded National Score (1-100), lower number is lower ri sk Not on file 03/22/2020 State Score (1-10), lower number is lower risk N ot on file 03/22/2020 Data from: https://www.neighborhoodatlas.medicine.[facility]/. Last address used for calculation Not [...] Industry Job Start Date Job End Date [employer] Not on file Not on file Not on file disability since 07/2015 (off work since 11/2013) Not on file Not on file Not on file documented as of this encounter Functional Status * Are you deaf or do you have serious difficulty hearing? Answer Date of Assessment Author No 01/25/2017 3:55 PM RAMONT Osmany Ireland RN * Are you blind [...] Contact Info) Description 09/24/2024 6:00 PM EDT [address] [address] Basim White MD [address] [place] [address] 3 month follow up 11/28/2024 9:40 AM EDT [facility] Endocrinology [place] [address] [place] [address] [place] [address] [address] Type one diabetes pump and cgm follow up 12/20/2024 4:00 PM EDT [address] [address] Christiana Sims PA-C [address] [place] [address] 6 Month follow up and yearly physical 03/04/2025 5:20 PM EST Office Visit [address] [address] Basim White MD [address] [place] [address] 12 month follow up documented as of [...] documented as of this encounter Care Teams Rim Buster Relationship Specialty Start Date End Date Basim White MD [address] [place] [address] PCP - General Family Medicine 08/09/17 Nate Joyce DO Machine Hamper Maker 02/09/13 Paulie Sandra MD [address] [address] Primary Staff Physician Cardiology 07/04/18 Teagan Henriquez, RN 6000 [place] [address] Primary Care Engine Test Cell Technician Internal Medicine 06/22/23 07/21/23 Pasc[employer] Kc, FEDERAL DISTRICT CLERK.GRAZING EXAMINER [address] [place] [address] Fish Trapper Family Medicine 03/26/24 07/04/24 Leeanne Balderas, FEDERAL DISTRICT CLERK.GRAZING EXAMINER [address] [place] [address] Fish Trapper Family Medicine 03/26/24 07/04/24 Juanita Luong PA-C [id number] [place] [address] Fish Trapper Family Medicine 03/26/24 07/04/24 Rubi Rodriguez, FEDERAL DISTRICT CLERK.GRAZING EXAMINER [address] [place] [address] Fish Trapper Family Medicine 03/26/24 07/04/24 Christiana Sims PA-C [address] [place] [address] Fish Trapper Family Medicine 03/26/24 Tami Vazquez PA-C [address] [place] [address] Fish Trapper Family Medicine 06/07/24 07/04/24 Juanita Luong PA-C [address] [place] [address] Fish Trapper Family Medicine 07/11/24 07/25/24 Awa Sanchez PA-C [address] [place] [address] Fish Trapper Internal Medicine 09/03/24 documented as of this encounter
--- OUTSIDE RECORDS SUMMARY | 2024-09-09 00:47 | XMS_ITS | Encounter Summary ---
Author Organization [facility] Address [address] [place], [place] [address] Care Team Providers Care Home Worker Name Role Phone Nate Joyce Unavailable [phone] Basim White MD Primary Care Provider Paulie Sandra MD Unavailable Paulie Sandra MD Unavailable Teagan Henriquez RN Unavailable [employer] CONTENT ENGINEER.ACTIMIZE ARCHITECT Unavailable Leeanne Balderas CONTENT ENGINEER.ACTIMIZE ARCHITECT Unavailable [phone] Juanita Luong PA-C Unavailable Rubi Rodriguez CONTENT ENGINEER.ACTIMIZE ARCHITECT Unavailable Christiana Sims PA-C Unavailable Tami Vazquez PA-C Unavailable [phone] Juanita Luong PA-C Unavailable Awa Sanchez PA-C Unavailable Source Comments In the event this information is protected by the Federal Confidentiality of Alcohol and Drug AbusePatient Records regulations: The Federal rules restrict any use of the information to criminally investigate or prosecute any alcohol or drug abuse patient.[facility] Encounter Details Date Type Department Care Team (Late st Contact Info) Description 12/23/2017 Get Medical Advice Family Medicine [place] [address] [place], [place] [id number] Basim White MD [address] [place], [place] [phone] RE: Medication Question (Not Renewal) Social History [...] Job Start Date Job End Date [employer] Not on file Not on file Not [...] Contact Info) Description 09/24/2024 6:00 PM EDT [address] [address] Basim White MD [address] [place] [address] 3 month follow up 11/28/2024 9:40 AM EDT [facility] Endocrinology [place] [address] [place] [address] [place] [address] [address] Type one diabetes pump and cgm follow up 12/20/2024 4:00 PM EDT [address] [address] Christiana Sims PA-C [address] [place] [address] 6 Month follow up and yearly physical 03/04/2025 5:20 PM EST Office Visit [address] [address] Basim White MD [address] [place] [address] 12 month follow up documented as of [...] documented as of this encounter Care Teams Home Worker Relationship Specialty Start Date End Date Basim White MD [address] [place] [address] PCP - General Family Medicine 08/09/17 Nate Joyce DO Group Dynamics Instructor 02/09/13 Paulie Sandra MD [address] [address] Primary Staff Physician Cardiology 07/04/1807/04 Paulie Sandra MD [address] [address] Primary Staff Physician Cardiology 07/04/18 Teagan Henriquez, RN 6000 [place] [address] Primary Care Acoustical Tile Carpenters Supervisor Internal Medicine 06/22/23 07/21/23 Pasclae Kc, CONTENT ENGINEER.ACTIMIZE ARCHITECT [address] [place] [address] Software Project Engineer Family Medicine 03/26/24 07/04/24 Leeanne Balderas, CONTENT ENGINEER.ACTIMIZE ARCHITECT [address] [place] [address] Software Project Engineer Family Medicine 03/26/24 07/04/24 Juanita Luong PA-C [address] [place] [address] Software Project Engineer Family Medicine 03/26/24 07/04/24 Rubi Rodriguez, CONTENT ENGINEER.ACTIMIZE ARCHITECT [address] [place] [address] Software Project Engineer Family Medicine 03/26/24 07/04/24 Christiana Sims PA-C [address] [place] [address] Software Project Engineer Family Medicine 03/26/24 Tami Vazquez PA-C [address] [place] [address] Software Project Engineer Family Medicine 06/07/24 07/04/24 Juanita Luong PA-C [address] [place] [address] Software Project Engineer Family Medicine 07/11/24 07/25/24 Awa Sanchez PA-C [address] [place] [address]253 Software Project Engineer Internal Medicine 09/03/24 documented as of this encounter
--- OUTSIDE RECORDS SUMMARY | 2024-09-09 00:47 | XMS_ITS | Encounter Summary ---
Author Organization [facility] Address [address] [place], [place] [address] Care Team Providers Care Emergency Veterinary Assistant Name Role Phone IsiahNate [place] Cecelia OSBORNE Unavailable [phone] Basim White MD Primary Care Provider Paulie Sandra MD Unavailable [phone] Teagan Henriquez RN Unavailable [employer] FLIGHT OPERATIONS COORDINATOR.YARD GOODS SALESPERSON Unavailable Leeanne Balderas FLIGHT OPERATIONS COORDINATOR.YARD GOODS SALESPERSON Unavailable [phone] Juanita Luong PA-C Unavailable Rubi Rodriguez FLIGHT OPERATIONS COORDINATOR.YARD GOODS SALESPERSON Unavailable Christiana Sims PA-C Unavailable Tami Vazquez PA-C Unavailable [phone] Juanita Luong PA-C Unavailable Awa Sanchez PA-C Unavailable Source Comments In the event this information is protected by the Federal Confidentiality of Alcohol and Drug AbusePatient Records regulations: The Federal rules restrict any use of the information to criminally investigate or prosecute any alcohol or drug abuse patient.[facility] Encounter Details Date Type Department Care Team (Kathryn saini Contact Info) Description 04/24/2020 Patient Msg Dermatology [address] [place], [place] [phone] Provider, Ccf appointment requested Social History Tobacco Use Types Packs/Day Years [...] Answer Date Recorded PHQ-2 score 0 02/04/2020 [facility] of Occupat ional [facility] - Occupational Stress Questionnaire Answer [...] or slept in a fci (including now)? Patient refused 03/22/2020 Area Deprivation Index Answer Date Sergio rded National Score (1-100), lower number is lower ri sk Not on file 03/22/2020 State Score (1-10), lower number is lower risk N ot on file 03/22/2020 Data from: https://www.neighborhoodatlas.medicine.[facility].edu/. 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 Unable to assess 04/24/2020 11:17 AM EST documented as of this encounter [...] Contact Info) Description 09/24/2024 6:00 PM EDT [address] [address] Basim White MD [address] [place] [address] 3 month follow up 11/28/2024 9:40 AM EDT [facility] Endocrinology [place] [address] [place] [address] [place] [address] [address] Type one diabetes pump and cgm follow up 12/20/2024 4:00 PM EDT [address] [address] Christiana Sims PA-C [address] [place] [address] 6 Month follow up and yearly physical 03/04/2025 5:20 PM EST Office Visit [address] [address] Basim White MD [address] [place] [address] 12 month follow up documented as of [...] documented as of this encounter Care Teams Emergency Veterinary Assistant Relationship Specialty Start Date End Date Basim White MD [address] [place] [address] PCP - General Family Medicine 08/09/17 Nate Joyce DO Study Lead 02/09/13 Paulie Sandra MD [address] [phone] Primary Staff Physician Cardiology 07/04/18 Teagan Henriquez, RN 6000 [place] [address] Primary Care Document Advisor Internal Medicine 06/22/23 07/21/23 Pasc[employer] Kc FLIGHT OPERATIONS COORDINATOR.YARD GOODS SALESPERSON [address] [place] [address] Woods Laborer Family Medicine 03/26/24 07/04/24 Leeanne Balderas, FLIGHT OPERATIONS COORDINATOR.YARD GOODS SALESPERSON [address] [place] [address] Woods Laborer Family Medicine 03/26/24 07/04/24 Juanita Luong PA-C [address] [place] [address] Woods Laborer Family Medicine 03/26/24 07/04/24 Rubi Rodriguez, FLIGHT OPERATIONS COORDINATOR.YARD GOODS SALESPERSON [address] [place] [address] Woods Laborer Family Medicine 03/26/24 07/04/24 Christiana Sims PA-C [address] [place] [address] Woods Laborer Family Medicine 03/26/24 Tami Vazquez PA-C [address] [place] [address] Woods Laborer Family Medicine 06/07/24 07/04/24 Juanita Luong PA-C [address] [place] [address] Woods Laborer Family Medicine 07/11/24 07/25/24 Awa Sanchez PA-C [address] [place], [place] [address] Woods Laborer Internal Medicine 09/03/24 documented as of this encounter
--- OUTSIDE RECORDS SUMMARY | 2024-09-09 00:47 | XMS_ITS | Encounter Summary ---
Author Organization [facility] Address [address] [place], [place] [address] Care Team Providers Care Veterans' Counselor Name Role Phone Nate Joyce Unavailable [phone] Basim White MD Primary Care Provider Paulie Sandra MD Unavailable Paulie Sandra MD Unavailable [phone] Teagan Henriquez RN Unavailable [employer] PAINTER FOREMAN.INDUSTRIAL RELATIONS DIRECTOR Unavailable Leeanne Balderas PAINTER FOREMAN.INDUSTRIAL RELATIONS DIRECTOR Unavailable [phone] Juanita Luong PA-C Unavailable Rubi Rodriguez PAINTER FOREMAN.INDUSTRIAL RELATIONS DIRECTOR Unavailable Christiana Sims PA-C Unavailable Tami Vazquez PA-C Unavailable [phone] Juanita Luong PA-C Unavailable Awa Sanchez [...] Team (Late st Contact Info) Description 09/21/2017 Patient Msg Ophthalmology [address] [place] [address] Daniele Carmichael, [address] [place] [address] RE: Appointment Cancellation Request Social History Tobacco [...] stephen Ireland RN * Do you have difficulty [...] Contact Info) Description 09/24/2024 6:00 PM EDT [address] [address] Basim White MD [address] [place] [address] 3 month follow up 11/28/2024 9:40 AM EDT [facility] Endocrinology [place] [address] [place] [address] [place] [address] [address] Type one diabetes pump and cgm follow up 12/20/2024 4:00 PM EDT [address] [address] Christiana Sims PA-C [address] [place] [address] 6 Month follow up and yearly physical 03/04/2025 5:20 PM EST Office Visit [address] [address] Basim White MD [address] [place] [address] 12 month follow up documented as of [...] documented as of this encounter Care Teams Veterans' Counselor Relationship Specialty Start Date End Date Basim White MD [address] [place] [address] PCP - General Family Medicine 08/09/17 Nate Joyce DO Warehouse Receiving Clerk 02/09/13 Paulie Sandra MD [address] [address] Primary Staff Physician Cardiology 07/04/1807/04 Paulie Sandra MD [address] [phone] Primary Staff Physician Cardiology 07/04/18 Teagan Henriquez, RN 6000 [place] [address] Primary Care Branch Office Manager Internal Medicine 06/22/23 07/21/23 Pascale Kc, PAINTER FOREMAN.INDUSTRIAL RELATIONS DIRECTOR [address] [place] [address] Bellhop Service Captain Family Medicine 03/26/24 07/04/24 Leeanne Balderas, PAINTER FOREMAN.INDUSTRIAL RELATIONS DIRECTOR [address] [place] [address] [place] Service Captain Family Medicine 03/26/24 07/04/24 Juanita Luong PA-C [address] [place] [address] [place] Service Captain Family Medicine 03/26/24 07/04/24 Rbui Rodriguez, PAINTER FOREMAN.INDUSTRIAL RELATIONS DIRECTOR [address] [place] [address] [place] Service Captain Family Medicine 03/26/24 07/04/24 Christiana Sims PA-C [address] [place] [address] [place] Service Captain Family Medicine 03/26/24 Tami Vazquez PA-C [address] [place] [address] [place] Service Captain Family Medicine 06/07/24 07/04/24 Juanita Luong PA-C [address] [place] [address] Bellhop Service Captain Family Medicine 07/11/24 07/25/24 Awa Sanchez PA-C [facility] [place] [address] Bellhop Service Captain Internal Medicine 09/03/24 documented as of this encounter
--- OUTSIDE RECORDS SUMMARY | 2024-09-09 00:47 | XMS_ITS | Clinical Summary ---
Author Organization [facility] Address [address] [place] [address] Phone Care Team Providers Care Lock And Dam Equipment Repairer Name Role Phone Unavailable Primary Care Provider Unavailabl e Social History Tobacco Use Types Packs/Day Years Used Date Smoking Tobacco: Never Assessed Comments Unknown Sex and Gender Information Value Date Recorded Sex Assigned at Not on file Legal Sex Female 5:39 PM EST Gender Identity Not on file Sexual Orientation Not on file Last Filed Vital Signs Vital Sign Reading Time Taken Comments Blood Pressure - - Pulse - - Temperature - - Respiratory Rate - - Oxygen Saturation - - Inhaled Oxygen Concentration - - Weight 134 kg (296 lb) 09/16/2020 11:50 AM EDT Height 172.7 cm (5' 8 ) 09/16/2020 11:50 AM EDT Body Mass Index 45.01 09/16/2020 11:50 AM EDT Plan of Treatment Health Maintenance Due Date Last Done Comments HIV Screening 1980 Lipid Panel 1980 Medicare Annual Wellness Visit (AWV) 1980 Varicella Vaccines (1 of 2 - 13+ 2-dose series) 1993 Hepatitis C Screening 1998 Hepatitis A Vaccines (1 of 2 - Risk 2-dose series) 10/01/1999 Hepatitis B Vaccines (1 of 3 - 19+ 3-dose series) 10/01/1999 Cervical Cancer Screening 2001 HPV/Cotest 2001 Pap Smear 2001 Mammogram 2020 02/01/2018 COVID-19 Vaccine ( season) 2023 06/20/2023 Influenza Vaccine (Season Ended) 2024 02/12/2020, 01/19/2019 DTaP/Tdap/Td Vaccines (3 - Td or Tdap) 06/18/2026 06/18/2016, 10/01/1996 Diabetes Screening 12/07/2026 12/08/2023, 0 06/19/2023, 09/03/2022, Additional history exists Zoster Vaccines (1 of 2) 2030 MMR Vaccines Completed 05/28/1992 Pneumococcal Vaccine: Pediatrics and At-Risk Adult Patients Aged Out 06/18/2016 No longer eligible based on patient's age to complete this topic Irritable Bowel Syndrome Discontinued 10/03/2020 Diabetes: Urine Protein Screening Discontinued 09/18/2021 HIB Vaccines Aged Out No longer eligi ble based on patient's age to complete this topic HPV Vaccines Aged Out No longer eligi ble based on patient's age to complete this topic IPV Vaccines Aged Out No longer eligi ble based on patient's age to complete this topic Meningococcal Vaccine Aged Out No peggy alin eligible based on patient's age to complete this topic Rotavirus Vaccines Aged Out No longer eligible based on patient's age to complete this topic Procedures Procedure Name Priority Date/Time Associated Diagnosis Comments EGD 10/03/2020 from Last 3 Months or Most Recently Relevant to Health Maintenance Results * EGD (10/03/2020) Anatomical Region Laterality Modality Endoscopy Narrative 10/03/2020 Ordered by an unspecified provider. us Onbase Conversion ENDOSCOPY PROCEDURE ORDERABLES Final Result from Last 3 Months or Most Recently Relevant to Health Maintenance Insurance MEDICAID MEDICARE PART A AND B MEDICAID MEDICARE PART A AND B
--- OUTSIDE RECORDS SUMMARY | 2024-09-09 00:47 | XMS_ITS | Encounter Summary ---
Author Organization [facility] Address [address] [place], [place] [address] Care Team Providers Care Yarn Dumper Name Role Phone Nate Joyce Unavailable [phone] Basim White MD Primary Care Provider Paulie Sandra MD Unavailable Paulie Sandra MD Unavailable Teagan Henriquez RN Unavailable Pascale Kc OVEN DAUBER.SNACK BAR CASHIER Unavailable Leeanne Balderas OVEN DAUBER.SNACK BAR CASHIER Unavailable [phone] Juanita Luong PA-C Unavailable Rubi Rodriguez OVEN DAUBER.SNACK BAR CASHIER Unavailable Christiana Sims PA-C Unavailable Tami Vazquez PA-C Unavailable [phone] Juanita Luong PA-C Unavailable Awa Sanchez PA-C Unavailable Source Comments In the event this information is protected by the Federal Confidentiality of Alcohol and Drug AbusePatient Records regulations: The Federal rules restrict any use of the information to criminally investigate or prosecute any alcohol or drug abuse patient.[facility] Encounter Details Date Type Department Care Team (Late st Contact Info) Description 01/13/2018 Patient Msg Neurology [address] [place] [address] Provider, Ccf Confirming Sleep Study Social History [...] 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 on file [...] Info) Description 09/24/2024 6:00 PM EDT [address] [address] Basim White MD [address] [place] [address] 3 month follow up 11/28/2024 9:40 AM EDT [facility] Endocrinology [place] [address] [place] [phone] [place] [address] [address] Type one diabetes pump and cgm follow up 12/20/2024 4:00 PM EDT [address] [address] Christiana Sims PA-C [address] [place] [address] 6 Month follow up and yearly physical 03/04/2025 5:20 PM EST Office Visit [address] [address] Basim White MD [address] [place] [address] 12 month follow up documented as of [...] documented as of this encounter Care Teams Yarn Dumper Relationship Specialty Start Date End Date Basim White MD [address] [place] [address] PCP - General Family Medicine 08/09/17 Nate Joyce DO Hook Up Driver 02/09/13 Paulie Sandra MD [address] [address] Primary Staff Physician Cardiology 07/04/1807/04 Paulie Sandra MD [address] [facility] [address] [place] [address] Primary Staff Physician Cardiology 07/04/18 Teagan Henriquez, RN [address] [id number] Primary Care Prior Authorization Nurse Internal Medicine 06/22/23 07/21/23 Pascale Kc, OVEN DAUBER.SNACK BAR CASHIER [address] [place] [address] [facility] Family Medicine 03/26/24 07/04/24 Leeanne Balderas, OVEN DAUBER.SNACK BAR CASHIER [address] [place] [address] [facility] 03/26/24 07/04/24 Juanita Luong PA-C [address] [place] [address] [facility] Family [facility] 03/26/24 07/04/24 Rubi Rodriguez, OVEN DAUBER.SNACK BAR CASHIER [address] [place] [address] [facility] Family Medicine 03/26/24 07/04/24 Christiana Sims PA-C [address] [place] [address] [facility] Family [facility] 03/26/24 Tami Vazquez PA-C [address] [place] [address] [facility] Family Medicine 06/07/24 07/04/24 Juanita Luong PA-C [address] [place] [address] White Sugar Supervisor Family Medicine 07/11/24 07/25/24 Awa Sanchez PA-C [address] [place] [address] White Sugar Supervisor Internal Medicine 09/03/24 documented as of this encounter
--- OUTSIDE RECORDS SUMMARY | 2024-09-09 00:47 | XMS_ITS | Encounter Summary ---
Author Organization [facility] Address [address] [place], [place] [address] Care Team Providers Care Radio Performer Name Role Phone IsiahNate greenfield Cecelia OSBORNE Unavailable [phone] Basim White MD Primary Care Provider Paulie Sandra MD Unavailable [phone] Teagan Henriquez RN Unavailable Pascale Kc OPHTHALMIC TECHNOLOGIST.BOARD SAW RUNNER Unavailable Leeanne Balderas OPHTHALMIC TECHNOLOGIST.BOARD SAW RUNNER Unavailable [phone] Juanita Luong PA-C Unavailable Rubi Rodriguez OPHTHALMIC TECHNOLOGIST.BOARD SAW RUNNER Unavailable Christiana Sims PA-C Unavailable Tami Vazquez [...] Care Team (Kathryn saini Contact Info) Description 05/07/2020 Patient Msg General Surgery BMI [address] [place] [address] Provider, Ccf Nutrition summary Social History Tobacco Use Types Packs/Day Years [...] often do you attend chur ch or judaism services? More than 4 [...] Answer Date Recorded PHQ-2 score 0 02/04/2020 [facility] - Occupational Stress Questionnaire Answer [...] or slept in a retirement (including now)? Patient refused 03/22/2020 Area Deprivation Index Answer Date Sergio rded National Score (1-100), lower number is lower ri sk Not on file 03/22/2020 State Score (1-10), lower number is lower risk N ot on file 03/22/2020 Data from: https://www.neighborhoodatlas.medicine.[facility].edu/. 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 No / Unsure 04/28/2020 6:41 PM EST documented as of this encounter [...] Info) Description 09/24/2024 6:[address] PM EDT [address] [address] Basim White MD [address] [place] [address] 3 month follow up 11/28/2024 9:40 AM EDT [facility] Endocrinology [place] [address] [place] [address] [place] [address] [address] Type one diabetes pump and cgm follow up 12/20/2024 4:00 PM EDT [address] [address] Christiana Sims PA-C [address] [place] [address] 6 Month follow up and yearly physical 03/04/2025 5:20 PM EST Office Visit [address] [address] Basim White MD [address] [place] [address] 12 month follow up documented as of [...] documented as of this encounter Care Teams Radio Performer Relationship Specialty Start Date End Date Basim White MD [address] [place] [address] PCP - General Family Medicine 08/09/17 Nate Joyce DO Binding Nicker 02/09/13 Paulie Sandra MD [address] [phone] Primary Staff Physician Cardiology 07/04/18 Teagan Henriquez, RN [address] [place] [address] [phone] Primary Care Attacher Internal Medicine 06/22/23 07/21/23 Pascale Kc, OPHTHALMIC TECHNOLOGIST.BOARD SAW RUNNER [address] [place] [address] Development Expert Family Medicine 03/26/24 07/04/24 Leeanne Balderas, OPHTHALMIC TECHNOLOGIST.BOARD SAW RUNNER [address] [place] [address] Development Expert Family Medicine 03/26/24 07/04/24 Juanita Luong PA-C [address] [place] [address] Development Expert Family Medicine 03/26/24 07/04/24 Rubi Rodriguez, OPHTHALMIC TECHNOLOGIST.BOARD SAW RUNNER [address] [place] [address] Development Expert Family Medicine 03/26/24 07/04/24 Christiana Sims PA-C [address] [place] [address] Development Expert Family Medicine 03/26/24 Tami Vazquez PA-C [address] [place] [address] Development Expert Family Medicine 06/07/24 07/04/24 Juanita Luong PA-C [address] [place] [address] Development Expert Family Medicine 07/11/24 07/25/24 Awa Sanchez PA-C [facility] [place] [id number] Development Expert Internal Medicine 09/03/24 documented as of this encounter
--- OUTSIDE RECORDS SUMMARY | 2024-09-09 00:47 | XMS_ITS | Encounter Summary ---
Author Organization [facility] Address [address] [place], [place] [address] Care Team Providers Care Quality Control Analyst Name Role Phone Nate Joyce Unavailable [phone] Basim White MD Primary Care Provider Paulie Sandra MD Unavailable [phone] Paulie Sandra MD Unavailable Teagan Henriquez RN Unavailable [employer] K[employer] PELLETISING EXTRUDER OPERATOR.ELECTRICAL PROSPECTING ENGINEER Unavailable Leeanne Balderas PELLETISING EXTRUDER OPERATOR.ELECTRICAL PROSPECTING ENGINEER Unavailable [phone] Juanita Luong PA-C Unavailable Rubi Rodriguez PELLETISING EXTRUDER OPERATOR.ELECTRICAL PROSPECTING ENGINEER Unavailable Christiana Sims PA-C Unavailable Tami Vazquez PA-C Unavailable [phone] Juanita Luong PA-C Unavailable Awa Sanchez [...] Care Team (Late st Contact Info) Description 09/16/2017 Patient Msg Pulmonary Medicine [address] [place], [place] [phone] [place] [address] [place] [address] RE: Echo results Social History Tobacco Use Types Packs/Day Years [...] Industry Job Start Date Job End Date [place] Not on file Not on file Not [...] Info) Description 09/24/2024 6:00 PM EDT [address] [address] Basim White MD [address] [place] [address] 3 month follow up 11/28/2024 9:40 AM EDT [facility] Endocrinology [place] [address] [place] [address] [place] [address] [address] Type one diabetes pump and cgm follow up 12/20/2024 4:00 PM EDT [address] [address] Christiana Sims PA-C [address] [place] [address] 6 Month follow up and yearly physical 03/04/2025 5:20 PM EST Office Visit [address] [address] Basim White MD [address] [place] [address] 12 month follow up documented as of [...] documented as of this encounter Care Teams Quality Control Analyst Relationship Specialty Start Date End Date Basim White MD [address] [place] [address] PCP - General Family Medicine 08/09/17 Nate Joyce DO Third Cook 02/09/13 Paulie Sandra MD [address] [address] Primary Staff Physician Cardiology 07/04/1807/04 Paulie Sandra MD [address] [phone] Primary Staff Physician Cardiology 07/04/18 Teagan Henriquez, RN [address] [place] [address] Primary Care Regeneration Operator Internal Medicine 06/22/23 07/21/23 Pascale Kc, PELLETISING EXTRUDER OPERATOR.ELECTRICAL PROSPECTING ENGINEER [address] [place] [address] Chainstitch Felled Seam Operator Family Medicine 03/26/24 07/04/24 Leeanne Balderas, PELLETISING EXTRUDER OPERATOR.ELECTRICAL PROSPECTING ENGINEER [address] [place] [address] Chainstitch Felled Seam Operator Family Medicine 03/26/24 07/04/24 Juanita Luong PA-C [address] [place] [address] Chainstitch Felled Seam Operator Family Medicine 03/26/24 07/04/24 Rubi Rodriguez, PELLETISING EXTRUDER OPERATOR.ELECTRICAL PROSPECTING ENGINEER [address] [place] [address] Chainstitch Felled Seam Operator Family Medicine 03/26/24 07/04/24 Christiana Sims PA-C [address] [place] [address] Chainstitch Felled Seam Operator Family Medicine 03/26/24 Tami Vazquez PA-C [address] [place] [address] Chainstitch Felled Seam Operator Family Medicine 06/07/24 07/04/24 Juanita Luong PA-C [address] [place] [address] Chainstitch Felled Seam Operator Family Medicine 07/11/24 07/25/24 Awa Sanchez PA-C [address] [place], [place] [address] Chainstitch Felled Seam Operator Internal Medicine 09/03/24 documented as of this encounter
--- OUTSIDE RECORDS SUMMARY | 2024-09-09 00:47 | XMS_ITS | Encounter Summary ---
Author Organization [facility] Address [address] [place], [place] [address] Care Team Providers Care Food Mixer Name Role Phone Nate Joyce Unavailable [phone] Basim White MD Primary Care Provider Paulie Sandra MD Unavailable Paulie Sandra MD Unavailable [phone] Teagan Henriquez RN Unavailable Pascale Kc LACE INSPECTOR.STAMPING BENCH DIE MAKER Unavailable Leeanne Balderas LACE INSPECTOR.STAMPING BENCH DIE MAKER Unavailable [phone] Juanita Luong PA-C Unavailable Rubi Rodriguez LACE INSPECTOR.STAMPING BENCH DIE MAKER Unavailable Christiana Sims PA-C Unavailable Tami Vazquez PA-C Unavailable [phone] Juanita Luong PA-C Unavailable Awa Sanchez [...] Care Team (Late st Contact Info) Description 09/14/2017 Patient Msg Allergy [address] [place] [address] Provider, Ccf appointment Social History Tobacco Use [...] 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 Not [...] Contact Info) Description 09/24/2024 6:00 PM EDT [address] [address] Basim White MD [address] [place] [address] 3 month follow up 11/28/2024 9:40 AM EDT [facility] Endocrinology [place] [address] [place] [phone] [place] [address] [address] Type one diabetes pump and cgm follow up 12/20/2024 4:00 PM EDT [address] [address] Christiana Sims PA-C [address] [place] [address] 6 Month follow up and yearly physical 03/04/2025 5:20 PM EST Office Visit [address] [address] Basim White MD [address] [place] [address] 12 month follow up documented as of [...] documented as of this encounter Care Teams Food Mixer Relationship Specialty Start Date End Date Basim White MD [address] [place] [address] PCP - General Family Medicine 08/09/17 Nate Joyce DO Plant Engineering Supervisor 02/09/13 Paulie Sandra MD [address] [phone] Primary Staff Physician Cardiology 07/04/1807/04 Paulie Sandra MD [address] [facility] [address] [place] [address] Primary Staff Physician Cardiology 07/04/18 Teagan Henriquez, RN [address] [place] [phone] Primary Care Light Fixture Servicer Internal Medicine 06/22/23 07/21/23 Pascale Kc LACE INSPECTOR.STAMPING BENCH DIE MAKER [address] [place] [address] [facility] Family Medicine 03/26/24 07/04/24 Leeanne Balderas, LACE INSPECTOR.STAMPING BENCH DIE MAKER [address] [place] [address] [facility] Medicine 03/26/24 07/04/24 Juanita Luong PA-C [address] [place] [address] [facility] Family Medicine 03/26/24 07/04/24 Rubi Rodriguez, LACE INSPECTOR.STAMPING BENCH DIE MAKER [address] [place] [address] [facility] Family Medicine 03/26/24 07/04/24 Christiana Sims PA-C [address] [place] [address] [facility] Family Medicine 03/26/24 Tami Vazquez PA-C [address] [place] [address] [facility] Family Medicine 06/07/24 07/04/24 Juanita Luong PA-C [address] [place] [address] Wing Mailer Machine Operator Family Medicine 07/11/24 07/25/24 Awa Sanchez PA-C [address] [place], [place] [address] Wing Mailer Machine Operator Internal Medicine 09/03/24 documented as of this encounter
--- OUTSIDE RECORDS SUMMARY | 2024-09-09 00:47 | XMS_ITS | Encounter Summary ---
Author Organization [facility] Address [address] [place], [place] [address] Care Team Providers Care Roll Or Tape Edge Machine Operator Name Role Phone IsiahNate greenfield Cecelia OSBORNE Unavailable [phone] Basim White MD Primary Care Provider Paulie Sandra MD Unavailable Teagan Henriquez RN Unavailable Pascale Kc PROFESSIONAL BASS FISHER.BOWL TOPPER Unavailable Leeanne Balderas PROFESSIONAL BASS FISHER.BOWL TOPPER Unavailable [phone] Juanita Luong PA-C Unavailable Rubi Rodriguez PROFESSIONAL BASS FISHER.BOWL TOPPER Unavailable Christiana Sims PA-C Unavailable Tami Vazquez PA-C Unavailable [phone] Juanita Luong PA-C Unavailable Awa Sanchez PA-C Unavailable Source Comments In the event this information is protected by the Federal Confidentiality of Alcohol and Drug AbusePatient Records regulations: The Federal rules restrict any use of the information to criminally investigate or prosecute any alcohol or drug abuse patient.[facility] Encounter Details Date Type Department Care Team (Kathryn saini Contact Info) Description 03/26/2022 Patient [facility] [address] [place] [address] Provider, Sha Gillis Scheduing Social History Tobacco Use Types Packs/Day Years [...] How often do you attend chur or lutheran services? More than 4 times per year [...] Answer Date Recorded PHQ-2 score 5 03/03/2021 [facility] Answer Date [...] N ot on file 10/14/2021 Data from: https://www.neighborhoodatlas.medicine.[facility]/. Last address used for calculation [address] [...] Industry Job Start Date Job End Date [place] Not on file Not on file Not [...] Assessment Author No 01/25/2017 3:55 PM Osmany aHrt RN documented as of this encounter Mental Status * Because of a physical, mental, or emotional condition, do you have serious difficulty concentrating, remembering, or making decisions? Answer Entry Date Author No 01/25/2017 3:55 PM EDT Osmany Ireland RN documented in this encounter Plan of Treatment Upcoming Encounters Date Type Department Care Team (Latest Contact Info) Description 09/24/2024 6:00 PM EDT [address] [address] Basim White MD [address] [place] [address] 3 month follow up 11/28/2024 9:40 AM EDT [facility] Endocrinology [place] [address] [place] [address] [place] [address] [address] Type one diabetes pump and cgm follow up 12/20/2024 4:00 PM EDT [address] [address] Christiana Sims PA-C [address] [place] [address] 6 Month follow up and yearly physical 03/04/2025 5:20 PM EST Office Visit [address] [address] Basim White MD [address] [place] [address] 12 month follow up documented as of [...] on filedocumented in this encounter Care Teams Roll Or Tape Edge Machine Operator Relationship Specialty Start Date End Date Basim White MD [address] [place] [address] PCP - General Family Medicine 08/09/17 Nate Joyce DO Crop Scout 02/09/13 Paulie Sandra MD [address] [phone] Primary Staff Physician Cardiology 07/04/18 Teagan Henriquez, JIE [address] [place], [place] [phone] Primary Care Research Program Manager Internal Medicine 06/22/23 07/21/23 Pascale Kc APRN.BOWL TOPPER [address] [place] [address] Document Processor Family Medicine 03/26/24 07/04/24 Leeanne Balderas APRN.BOWL TOPPER [address] [place] [address] Document Processor Family Medicine 03/26/24 07/04/24 Juanita Luong PA-C [address] [place] [address] Document Processor Family Medicine 03/26/24 07/04/24 Rubi Rodriguez, ISABELLA.BOWL TOPPER [address] [place] [address] Document Processor Family Medicine 03/26/24 07/04/24 Christiana Sims PA-C [address] [place] [address] Document Processor Family Medicine 03/26/24 Tami Vazquez PA-C [address] [place] [address] Document Processor Family Medicine 06/07/24 07/04/24 Juanita Luong PA-C [address] [place] [address] Document Processor Family Medicine 07/11/24 07/25/24 Awa Sanchez PA-C [address] [place] [address] Document Processor Internal Medicine 09/03/24 documented as of this encounter
--- OUTSIDE RECORDS SUMMARY | 2024-09-09 00:47 | XMS_ITS | Encounter Summary ---
Author Organization [facility] Address [address] [place] [address] Phone Care Team Providers Care Manager Home Name Role Phone Unavailable Primary Care Provider Unavailabl e Encounter Details Date Type Department Care Team (Late st Contact Info) Description 11/25/2020 Orders Only [facility] [address] [place] [address] Conversion, Onbase Social History Tobacco Use Types Packs/Day Years Used Date Smoking Tobacco: Never Assessed Comments Unknown Sex and Gender Information Value Date Recorded Sex Assigned at Not on file Legal Sex Female 5:39 PM EST Gender Identity Not on file Sexual Orientation Not on file documented as of this encounter Plan of Treatment Scheduled Orders Name Type Priority Associated Diagnoses Orde r Schedule OUTSIDE LAB SCAN Lab Ordered: 11/25/2020 documented as of this encounter Visit Diagnoses Not on filedocumented in this encounter
--- OUTSIDE RECORDS SUMMARY | 2024-09-09 00:47 | XMS_ITS | Encounter Summary ---
Author Organization [facility] Address [address] [place], [place] [id number] Care Team Providers Care Professor Sculpture Name Role Phone IsiahNate greenfield Cecelia OSBORNE Unavailable [phone] Basim White MD Primary Care Provider Paulie Sandra MD Unavailable Teagan Henriquez RN Unavailable [employer] RETAIL SALES MANAGER.CORNER BRACE BLOCK MACHINE OPERATOR Unavailable Leeanne Balderas RETAIL SALES MANAGER.CORNER BRACE BLOCK MACHINE OPERATOR Unavailable [phone] Juanita Luong PA-C Unavailable Rubi Rodriguez RETAIL SALES MANAGER.CORNER BRACE BLOCK MACHINE OPERATOR Unavailable Christiana Sims PA-C Unavailable Tami Vazquez PA-C Unavailable [phone] Juanita Luong PA-C Unavailable Awa Sanchez PA-C Unavailable Source Comments In the event this information is protected by the Federal Confidentiality of Alcohol and Drug AbusePatient Records regulations: The Federal rules restrict any use of the information to criminally investigate or prosecute any alcohol or drug abuse patient.[facility] Encounter Details Date Type Department Care Team (Late Contact Info) Description 06/24/2020 Patient Msg Neurology [address] [place] [address] Shilpa Castaneda APRN.CORNER BRACE BLOCK MACHINE OPERATOR, PhD [address] [place] [address] Missed appointment Social History Tobacco Use Types Packs/Day [...] often do you attend chur ch or cheondoism services? More than 4 times per year 09/29/2019 Do you belong to any clubs o r organizations such as sabianism groups, unions, fraternal or athletic groups, or school groups? No 09/29/2019 How often do you attend meet ings of the clubs or organizations you belong to? Never 09/29/2019 Are you , , di vorced, , never , or living with a partner? 09/29/2019 PHQ-2 Answer Date Recorded PHQ-2 score 0 02/04/2020 [facility] of Occupat ional Health - [...] N ot on file 03/22/2020 Data from: https://www.neighborhoodatlas.medicine.[facility].edu/. 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 No / Unsure 06/17/2020 3:14 PM EST documented as of this encounter [...] Contact Info) Description 09/24/2024 6:00 PM [address]T [address] [address] Basim White MD [address] [place] [address] 3 month follow up 11/28/2024 9:40 AM EDT [facility] Endocrinology [place] [address] [place] [address] [place] [address] [address] Type one diabetes pump and cgm follow up 12/20/2024 4:00 PM EDT [address] [address] Christiana Sims PA-C [address] [place] [address] 6 Month follow up and yearly physical 03/04/2025 5:20 PM EST Office Visit [address] [address] Basim White MD [address] [place] [address] 12 month follow up documented as of [...] documented as of this encounter Care Teams Professor Sculpture Relationship Specialty Start Date End Date Basim White MD [address] [place] [address] PCP - General Family Medicine 08/09/17 Nate Joyce DO Personal Injury Specialist 02/09/13 Paulie Sandra MD [address] [phone] Primary Staff Physician Cardiology 07/04/18 Teagan Henriquez, RN [address] [place] [address] Primary Care Microbiology Analyst Internal Medicine 06/22/23 07/21/23 [employer], RETAIL SALES MANAGER.CORNER BRACE BLOCK MACHINE OPERATOR [address] [place] [address] Concrete Technician Family Medicine 03/26/24 07/04/24 Leeanne Balderas, RETAIL SALES MANAGER.CORNER BRACE BLOCK MACHINE OPERATOR [address] [place] [address] Concrete Technician Family Medicine 03/26/24 07/04/24 Juanita Luong PA-C [address] [place] [address] Concrete Technician Family Medicine 03/26/24 07/04/24 Rubi Rodriguez, RETAIL SALES MANAGER.CORNER BRACE BLOCK MACHINE OPERATOR [address] [place] [address] Concrete Technician Family Medicine 03/26/24 07/04/24 Christiana Sims PA-C [address] [place] [address] Concrete Technician Family Medicine 03/26/24 Tami Vazquez PA-C [address] [place] [address] Concrete Technician Family Medicine 06/07/24 07/04/24 Juanita Luong PA-C [address] [place] [address] Concrete Technician Family Medicine 07/11/24 07/25/24 Awa Sanchez PA-C [address] [place] [address] Concrete Technician Internal Medicine 09/03/24 documented as of this encounter
--- OUTSIDE RECORDS SUMMARY | 2024-09-09 00:47 | XMS_ITS | Encounter Summary ---
Author Organization [facility] Address [address] [place], [place] [address] Care Team Providers Care Sleep Lab Technician Name Role Phone IsiahNate greenfield Cecelia OSBORNE Unavailable [phone] Basim White MD Primary Care Provider Paulie Sandra MD Unavailable [phone] Teagan Henriquez RN Unavailable [employer] HITTING COACH.BLENDER / COOK Unavailable Leeanne Balderas HITTING COACH.BLENDER / COOK Unavailable [phone] Juanita Luong PA-C Unavailable Rubi Rodriguez HITTING COACH.BLENDER / COOK Unavailable Christiana Sims PA-C Unavailable Tami Vazquez PA-C Unavailable [phone] Juanita Luong PA-C Unavailable Awa Sanchez PA-C Unavailable Source Comments In the event this information is protected by the Federal Confidentiality of Alcohol and Drug AbusePatient Records regulations: The Federal rules restrict any use of the information to criminally investigate or prosecute any alcohol or drug abuse patient.[facility] Reason for Visit * Reason Comments CMN Encounter Details Date Type Department Care Team (Late st Contact Info) Description 05/01/2020 Abstract Neurology [address] [place] [id number] Main, Sleep Center [address] [place] [phone] CMN Social History Tobacco Use Types Packs/Day Years [...] Recorded PHQ-2 score 0 02/04/2020 [facility] of Occupat ional [...] or slept in a detention (including now)? Patient refused 03/22/2020 Area Deprivation Index Answer Date Sergio rded National Score (1-100), lower number is lower ri sk Not on file 03/22/2020 State Score (1-10), lower number is lower risk N ot on file 03/22/2020 Data from: https://www.neighborhoodatlas.medicine.[facility].edu/. Last address used for calculation Not [...] Industry Job Start Date Job End Date [employer] Not on file Not on file Not [...] Info) Description 09/24/2024 6:00 PM EDT [address] [address] Basim White MD [address] [place] [address] 3 month follow up 11/28/2024 9:40 AM EDT [facility] Endocrinology [place] [address] [place] [address] [place] [address] [address] Type one diabetes pump and cgm follow up 12/20/2024 4:00 PM EDT [address] [address] Christiana Sims PA-C [address] [place] [address] 6 Month follow up and yearly physical 03/04/2025 5:20 PM EST Office Visit [address] [address] Basim White MD [address] [place] [address] 12 month follow up documented as of this encounter Goals Goal Patient Goal Type Associated Problems Recent Progress Patient-Stated? Author Care Coordination - Diabetes Care Coordination Counseling and coordination of care No Morena Pandey, RN Note: Knows type of diabetes. (e.g. [...] documented as of this encounter Care Teams Sleep Lab Technician Relationship Specialty Start Date End Date Basim White MD [address] [place] [address] PCP - General Family Medicine 08/09/17 Nate Joyce DO Milk Hauler 02/09/13 Paulie Sanrda MD [address] [phone] Primary Staff Physician Cardiology 07/04/18 Teagan Henriquez, RN [address] [place], [place] [address] Primary Care Hose Seamer Internal Medicine 06/22/23 07/21/23 [employer], HITTING COACH.BLENDER / COOK [address] [place] [address] Solar Sales Manager Family Medicine 03/26/24 07/04/24 Leeanne Balderas, HITTING COACH.BLENDER / COOK [address] [place] [address] Solar Sales Manager Family Medicine 03/26/24 07/04/24 Juanita Luong PA-C [id number] [place] [address] Solar Sales Manager Family Medicine 03/26/24 07/04/24 Rubi Rodriguez, HITTING COACH.BLENDER / COOK [address] [place] [address] Solar Sales Manager Family Medicine 03/26/24 07/04/24 Christiana Sims PA-C [address] [place] [address] Solar Sales Manager Family Medicine 03/26/24 Tami Vazquez PA-C [address] [place] [address] Solar Sales Manager Family Medicine 06/07/24 07/04/24 Juanita Luong PA-C [address] [place] [address] Solar Sales Manager Family Medicine 07/11/24 07/25/24 Awa Sanchez PA-C [address] [place] [address] Solar Sales Manager Internal Medicine 09/03/24 documented as of this encounter
--- OUTSIDE RECORDS SUMMARY | 2024-09-09 00:47 | XMS_ITS | Encounter Summary ---
Author Organization [facility] Address [address] [place], [place] [address] Care Team Providers Care Cad Manager Name Role Phone IsiahNate greenfield Cecelia OSBORNE Unavailable [phone] Basim White MD Primary Care Provider Paulie Sandra MD Unavailable Teagan Henriquez RN Unavailable [employer] INJECTION MACHINE OPERATOR.ALLIED HEALTH INSTRUCTOR Unavailable Leeanne Balderas INJECTION MACHINE OPERATOR.ALLIED HEALTH INSTRUCTOR Unavailable [phone] Juanita Luong PA-C Unavailable Rubi Rodriguez INJECTION MACHINE OPERATOR.ALLIED HEALTH INSTRUCTOR Unavailable Christiana Sims PA-C Unavailable Tami Vazquez PA-C Unavailable [phone] Juanita Luong PA-C Unavailable Awa Sanchez PA-C Unavailable Source Comments In the event this information is protected by the Federal Confidentiality of Alcohol and Drug AbusePatient Records regulations: The Federal rules restrict any use of the information to criminally investigate or prosecute any alcohol or drug abuse patient.[facility] Encounter Details Date Type Department Care Team (Kathryn saini Contact Info) Description 03/31/2020 Patient Msg Neurology [address] [place] [address] Shilpa Castaneda APRN.ALLIED HEALTH INSTRUCTOR, PhD [address] [place] [address] RE: Appointment Cancellation Request Social History Tobacco [...] any clubs o r organizations such as jehovah's witness groups, unions, fraternal or athletic groups, or school groups? No 09/29/2019 How often do you attend meet ings of the clubs or organizations you belong to? Never 09/29/2019 Are you , , di vorced, , never , or living with a partner? 09/29/2019 PHQ-2 Answer Date Recorded PHQ-2 score 0 02/04/2020 [facility] of Occupat ional Health - Occupational Stress [...] N ot on file 03/22/2020 Data from: https://www.neighborhoodatlas.medicine.[facility].edu/. Last address used for calculation Not [...] Job Start Date Job End Date [employer] Not on file Not on file Not [...] Contact Info) Description 09/24/2024 6:00 PM EDT [address] [address] Basim White MD [address] [place] [address] 3 month follow up 11/28/2024 9:40 AM EDT [facility] Endocrinology [place] [address] [place] [phone] [place] [address] [address] Type one diabetes pump and cgm follow up 12/20/2024 4:00 PM EDT [address] [address] Christiana Sims PA-C [address] [place] [address] 6 Month follow up and yearly physical 03/04/2025 5:20 PM EST Office Visit [address] [address] Basim White MD [address] [place] [address] 12 month follow up documented as of [...] documented as of this encounter Care Teams Cad Manager Relationship Specialty Start Date End Date Basim White MD [address] [place] [address] PCP - General Family Medicine 08/09/17 Nate Joyce DO Adjudication Specialist 02/09/13 Paulie Sandra MD [address] [phone] Primary Staff Physician Cardiology 07/04/18 Teagan Henriquez, RN 6[address] [place] [address] Primary Care Home School Coordinator Internal Medicine 06/22/23 07/21/23 [employer], INJECTION MACHINE OPERATOR.ALLIED HEALTH INSTRUCTOR [address] [place] [address] Manager Global Communications Family Medicine 03/26/24 07/04/24 Leeanne Balderas, INJECTION MACHINE OPERATOR.ALLIED HEALTH INSTRUCTOR [address] [place] [address] Manager [employer] Family Medicine 03/26/24 07/04/24 Juanita Luong PA-C [address] [place] [address] Manager [employer] Family Medicine 03/26/24 07/04/24 Rubi Rodriguez, INJECTION MACHINE OPERATOR.ALLIED HEALTH INSTRUCTOR [address] [place] [address] Manager [employer] Family Medicine 03/26/24 07/04/24 Christiana Sims PA-C [address] [place] [address] Manager [employer] Family Medicine 03/26/24 Tami Vazquez PA-C [id number] [place] [address] Manager [employer] Family Medicine 06/07/24 07/04/24 Juanita Luong PA-C [address] [place] [address] Manager [employer] Communications Family Medicine 07/11/24 07/25/24 Awa Sanchez PA-C [address] [place] [address] Manager [employer] Communications Internal Medicine 09/03/24 documented as of this encounter
--- OUTSIDE RECORDS SUMMARY | 2024-09-09 00:47 | XMS_ITS | Encounter Summary ---
Author Organization [facility] Address [address] [place], [place] [address] Care Team Providers Care Airborne Electronics Analyst Name Role Phone IsiahNate greenfield Cecelia OSBORNE Unavailable [phone] Basim White MD Primary Care Provider [phone] Paulie Sandra MD Unavailable Teagan Henriquez RN Unavailable [employer] GOPHERMAN.AIRCRAFT INSTRUMENT ENGINEER Unavailable Leeanne Balderas GOPHERMAN.AIRCRAFT INSTRUMENT ENGINEER Unavailable [phone] Juanita Luong PA-C Unavailable Rubi Rodriguez GOPHERMAN.AIRCRAFT INSTRUMENT ENGINEER Unavailable Christiana Sims PA-C Unavailable Tami Vazquez PA-C Unavailable [phone] Juanita Luong PA-C Unavailable Awa Sanchez [...] Care Team (Late st Contact Info) Description 12/31/2019 Get Medical Advice BMI [facility] REJ [address] [place] [address] [place] [address] [address] [place] [address] RE: Visit Follow Up Question Social History [...] any clubs o r organizations such as congregational groups, unions, fraternal or athletic groups, or school groups? No 09/29/2019 How often do you attend meet ings of the clubs or organizations you belong to? Never 09/29/2019 Are you , , di vorced, , never , or living with a partner? 09/29/2019 PHQ-2 Answer Date Recorded PHQ-2 Score 6 12/15/2019 [facility] of Occupat ional Health - Occupational Stress [...] or slept in a correction (including now)? 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 Not on file [...] Contact Info) Description 09/24/2024 6:00 PM EDT [address] [address] Basim White MD [address] [place] [address] 3 month follow up 11/28/2024 9:40 AM EDT [facility] Endocrinology [place] [address] [place] [address] [place] [address] [address] Type one diabetes pump and cgm follow up 12/20/2024 4:00 PM EDT [address] [address] Christiana Sims PA-C [address] [place] [address] 6 Month follow up and yearly physical 03/04/2025 5:20 PM EST Office Visit [address] [address] Basim White MD [address] [place] [address] 12 month follow up documented as of [...] documented as of this encounter Care Teams Airborne Electronics Analyst Relationship Specialty Start Date End Date Basim White MD [address] [place] [address] PCP - General Family Medicine 08/09/17 Nate Joyce DO Automation Control Integrator 02/09/13 Paulie Sandra MD [address] [phone] Primary Staff Physician Cardiology 07/04/18 Teagan Henriquez, RN 6[address] [place] [address] Primary Care Caustic Preparer Internal Medicine 06/22/23 07/21/23 [employer] K[employer], GOPHERMAN.AIRCRAFT INSTRUMENT ENGINEER [address] [place] [address] Radiocommunications Technician Family Medicine 03/26/24 07/04/24 Leeanne Balderas, GOPHERMAN.AIRCRAFT INSTRUMENT ENGINEER [address] [place] [address] Radiocommunications Technician Family Medicine 03/26/24 07/04/24 Juanita Luong PA-C [address] [place] [address] Radiocommunications Technician Family Medicine 03/26/24 07/04/24 Rubi Rodriguez, GOPHERMAN.AIRCRAFT INSTRUMENT ENGINEER [address] [place] [address] Radiocommunications Technician Family Medicine 03/26/24 07/04/24 Christiana Sims PA-C [address] [place] [address] Radiocommunications Technician Family Medicine 03/26/24 Tami Vazquez PA-C [address] [place] [address] Radiocommunications Technician Family Medicine 06/07/24 07/04/24 Juanita Luong PA-C [address] [place] [address] Radiocommunications Technician Family Medicine 07/11/24 07/25/24 Awa Sanchez PA-C [facility] [place] [address] Radiocommunications Technician Internal Medicine 09/03/24 documented as of this encounter
--- OUTSIDE RECORDS SUMMARY | 2024-09-09 00:47 | XMS_ITS | Encounter Summary ---
Author Organization [facility] Address [address] [place], [place] [address] Care Team Providers Care Exceptional Needs Teacher Name Role Phone IsiahNate greenfield Cecelia OSBORNE Unavailable [phone] Basim White MD Primary Care Provider Paulie Sandra MD Unavailable Teagan Henriquez RN Unavailable [employer] DATA PROCESSING MANAGER.QUALITY CONTROL ENGINEER Unavailable Leeanne Balderas DATA PROCESSING MANAGER.QUALITY CONTROL ENGINEER Unavailable [phone] Juanita Luong PA-C Unavailable Rubi Rodriguez DATA PROCESSING MANAGER.QUALITY CONTROL ENGINEER Unavailable Christiana Sims PA-C Unavailable Tami Vazquez PA-C Unavailable [phone] Juanita Luong PA-C Unavailable Awa Sanchez PA-C Unavailable Source Comments In the event this information is protected by the Federal Confidentiality of Alcohol and Drug AbusePatient Records regulations: The Federal rules restrict any use of the information to criminally investigate or prosecute any alcohol or drug abuse patient.[facility] Encounter Details Date Type Department Care Team (Late Contact Info) Description 12/27/2019 Get Medical Advice Family Medicine [place] [address] [place], [place] [phone] Basim White MD [address] [place], [place] [phone] RE: Medication Question (Not Renewal) Social History [...] often do you attend chur ch or samaritan services? More than 4 [...] Answer Date Recorded PHQ-2 Score 6 12/15/2019 [facility] [place] of Occupat ional Health - Occupational Stress [...] or slept in a half-way (including now)? 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 No / Unsure 12/18/2019 2:32 PM EDT documented as of this encounter [...] Info) Description 09/24/2024 6:00 PM EDT [address] [address] Basim White MD [address] [place] [address] 3 month follow up 11/28/2024 9:40 AM EDT [facility] Endocrinology [place] [address] [place] [address] [place] [address] [address] Type one diabetes pump and cgm follow up 12/20/2024 4:00 PM EDT [address] [address] Christiana Sims PA-C [address] [place] [address] 6 Month follow up and yearly physical 03/04/2025 5:20 PM EST Office Visit [address] [address] Basim White MD [address] [place] [address] 12 month follow up documented as of [...] as of this encounter 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 Additional Health Concerns Infection Onset Date Last Indicated Resolved Time COVID-19 Rule-Out 03/22/2020 03/22/2020 03/23/2020 7:16 PM EST COVID-19 Confirmed 02/26/2021 02/26/2021 8:51 PM EST documented as of this encounter Care Teams Exceptional Needs Teacher Relationship Specialty Start Date End Date Basim White MD [address] [place] [address] PCP - General Family Medicine 08/09/17 Nate Joyce DO Eligibility Manager 02/09/13 Paulie Sandra MD [address] [address] Primary Staff Physician Cardiology 07/04/18 Teagan Henriquez, RN 6000 [place] [address] Primary Care Special Agent Internal Medicine 06/22/23 07/21/23 Pascale Kc DATA PROCESSING MANAGER.QUALITY CONTROL ENGINEER [address] [place] [address] Corrosion Control Fitter Family Medicine 03/26/24 07/04/24 Leeanne Balderas, DATA PROCESSING MANAGER.QUALITY CONTROL ENGINEER [address] [place] [address] Corrosion Control Fitter Family Medicine 03/26/24 07/04/24 Juanita Luong PA-C [address] [place] [address] Corrosion Control Fitter Family Medicine 03/26/24 07/04/24 Rubi Rodriguez, DATA PROCESSING MANAGER.QUALITY CONTROL ENGINEER [address] [place] [address] Corrosion Control Fitter Family Medicine 03/26/24 07/04/24 Christiana Sims PA-C [address] [place] [address] Corrosion Control Fitter Family Medicine 03/26/24 Tami Vazquez PA-C [address] [place] [address] Corrosion Control Fitter Family Medicine 06/07/24 07/04/24 Juanita Luong PA-C [address] [place] [address] Corrosion Control Fitter Family Medicine 07/11/24 07/25/24 Awa Sanchez PA-C [address] [place] [id number] Corrosion Control Fitter Internal Medicine 09/03/24 documented as of this encounter
--- OUTSIDE RECORDS SUMMARY | 2024-09-09 00:47 | XMS_ITS | Encounter Summary ---
Author Organization [facility] Address [address] [place], [place] [id number] Care Team Providers Care Technical Consultant Name Role Phone IsiahNate greenfield Cecelia OSBORNE Unavailable [phone] Basim White MD Primary Care Provider [phone] Paulie Sandra MD Unavailable Teagan Henriquez RN Unavailable [employer] RESEARCH NURSE.FISH AND GAME CLUB MANAGER Unavailable Leeanne Balderas RESEARCH NURSE.FISH AND GAME CLUB MANAGER Unavailable [phone] Juanita Luong PA-C Unavailable Rubi Rodriguez RESEARCH NURSE.FISH AND GAME CLUB MANAGER Unavailable Christiana Sims PA-C Unavailable Tami Vazquez PA-C Unavailable [phone] Juanita Luong PA-C Unavailable Awa Sanchez PA-C Unavailable Source Comments In the event this information is protected by the Federal Confidentiality of Alcohol and Drug AbusePatient Records regulations: The Federal rules restrict any use of the information to criminally investigate or prosecute any alcohol or drug abuse patient.[facility] Encounter Details Date Type Department Care Team (Kathryn saini Contact Info) Description 06/26/2020 Patient Msg General Surgery BMI [address] [place], [place] [id number] Provider, Ccf RE: Nutrition visit- needs to be moved Social History Tobacco Use Types Packs/Day Years [...] How often do you attend chur or nondenominational services? More than 4 times per year [...] Date Recorded PHQ-2 score 0 02/04/2020 [facility] of Occupat ional Health - [...] in a usp (including now)? Patient refused 03/22/2020 Area Deprivation Index Answer Date Sergio rded National Score (1-100), lower number is lower ri sk Not on file 03/22/2020 State Score (1-10), lower number is lower risk N ot on file 03/22/2020 Data from: https://www.neighborhoodatlas.medicine.[facility]/. Last address used for calculation Not [...] Industry Job Start Date Job End Date [employer] Not on file Not on file Not [...] Info) Description 09/24/2024 6:00 PM EDT [address] [address] Basim White MD [address] [place] [address] 3 month follow up 11/28/2024 9:[address] [facility] Endocrinology [place] [address] [place] [address] [place] [address] [address] Type one diabetes pump and cgm follow up 12/20/2024 4:00 PM EDT [address] [address] Christiana Sims PA-C [address] [place] [address] 6 Month follow up and yearly physical 03/04/2025 5:20 PM EST Office Visit [address] [address] Basim White MD [address] [place] [address] 12 month follow up documented as of [...] documented as of this encounter Care Teams Technical Consultant Relationship Specialty Start Date End Date Basim White MD [address] [place] [address] PCP - General Family Medicine 08/09/17 Nate Joyce DO Pals Specialist 02/09/13 Paulie Sandra MD [address] [address] Primary Staff Physician Cardiology 07/04/18 Teagan Henriquez, RN [address] [place] [address] Primary Care Manager Non Profit Internal Medicine 06/22/23 07/21/23 [employer], RESEARCH NURSE.FISH AND GAME CLUB MANAGER [address] [place] [address] Software Deployment Engineer Family Medicine 03/26/24 07/04/24 Leeanne Balderas, RESEARCH NURSE.FISH AND GAME CLUB MANAGER [address] [place] [address] [facility] Family Medicine 03/26/24 07/04/24 Juanita Luong PA-C [address] [place] [address] Software Deployment Engineer Family Medicine 03/26/24 07/04/24 Rubi Rodriguez, RESEARCH NURSE.FISH AND GAME CLUB MANAGER [address] [place] [address] Software Deployment Engineer Family Medicine 03/26/24 07/04/24 Christiana Sims PA-C [address] [place] [address] Software Deployment Engineer Family Medicine 03/26/24 Tami Vazquez PA-C [address] [place] [address] [facility] Family Medicine 06/07/24 07/04/24 Juanita Luong PA-C [address] [place] [address] Software Deployment Engineer Family Medicine 07/11/24 07/25/24 Awa Sanchez PA-C [address] [id number] Software Deployment Engineer Internal Medicine 09/03/24 documented as of this encounter
--- OUTSIDE RECORDS SUMMARY | 2024-09-09 00:47 | XMS_ITS | Encounter Summary ---
Author Organization [facility] Address [address] [place], [place] [id number] Care Team Providers Care Supervisor Finishing Name Role Phone IsiahNate greenfield Cecelia OSBORNE Unavailable [phone] Basim White MD Primary Care Provider Paulie Sandra MD Unavailable Teagan Henriquez RN Unavailable [employer] LIQUOR TESTER.DEEP SUBMERGENCE VEHICLE OPERATOR Unavailable Leeanne Balderas LIQUOR TESTER.DEEP SUBMERGENCE VEHICLE OPERATOR Unavailable [phone] Juanita Luong PA-C Unavailable Rubi Rodriguez LIQUOR TESTER.DEEP SUBMERGENCE VEHICLE OPERATOR Unavailable Christiana Sims PA-C Unavailable Tami Vazquez PA-C Unavailable [phone] Juanita Luong PA-C Unavailable Awa Sanchez PA-C Unavailable Source Comments In the event this information is protected by the Federal Confidentiality of Alcohol and Drug AbusePatient Records regulations: The Federal rules restrict any use of the information to criminally investigate or prosecute any alcohol or drug abuse patient.[facility] Encounter Details Date Type Department Care Team (Kathryn saini Contact Info) Description 04/29/2020 Patient Msg Family Medicine [address] [place], [place] [id number] Provider, Ccf Appointment Request Social History Tobacco Use Types [...] How often do you attend chur or temple services? More than 4 times per year 09/29/2019 Do you belong to any clubs o r organizations such as scientologist groups, unions, fraternal or athletic groups, or school groups? No 09/29/2019 How often do you attend meet ings of the clubs or organizations you belong to? Never 09/29/2019 Are you , , di vorced, , never , or living with a partner? 09/29/2019 PHQ-2 Answer Date Recorded PHQ-2 score 0 02/04/2020 [facility] of Occupat ional [facility] - Occupational Stress Questionnaire Answer [...] or slept in a residential (including now)? Patient refused 03/22/2020 Area Deprivation Index Answer Date Sergio rded National Score (1-100), lower number is lower ri sk Not on file 03/22/2020 State Score (1-10), lower number is lower risk N ot on file 03/22/2020 Data from: https://www.neighborhoodatlas.medicine.[facility]/. Last address used for calculation Not on [...] Industry Job Start Date Job End Date [id number] Not on file Not on file Not [...] Contact Info) Description 09/24/2024 6:00 PM EDT [address] [address] Basim White MD [address] [place] [address] 3 month follow up 11/28/2024 9:40 AM EDT [facility] [place] [address] [place] [address] [place] [address] [address] Type one diabetes pump and cgm follow up 12/20/2024 4:00 PM EDT [address] [address] Christiana Sims PA-C [address] [place] [address] 6 Month follow up and yearly physical 03/04/2025 5:20 PM EST Office Visit [address] [address] Basim White MD [address] [place] [address] 12 month follow up documented as of [...] documented as of this encounter Care Teams Supervisor Finishing Relationship Specialty Start Date End Date Basim White MD [address] [facility] [place] [address] PCP - General Family Medicine 08/09/17 Nate Joyce DO Control Equipment Electrician 02/09/13 Paulie Sandra MD [address] [address] Primary Staff Physician Cardiology 07/04/18 Teagan Henirquez, RN [address] [id number] Primary Care Teacher Early Childhood Development Internal Medicine 06/22/23 07/21/23 [employer], LIQUOR TESTER.DEEP SUBMERGENCE VEHICLE OPERATOR [address] [place] [address] Doll Wig Maker [employer]ed [employer] Family Medicine 03/26/24 07/04/24 Leeanne Balderas, LIQUOR TESTER.DEEP SUBMERGENCE VEHICLE OPERATOR [address] [place] [address] [facility] Family Medicine 03/26/24 07/04/24 Juanita Luong PA-C [address] [place] [address] [facility] Family Medicine 03/26/24 07/04/24 Rubi Rodriguez, LIQUOR TESTER.DEEP SUBMERGENCE VEHICLE OPERATOR [address] [place] [address] Doll Wig Maker Rooted Hair Family Medicine 03/26/24 07/04/24 Christiana Sims PA-C [address] [place] [address] Doll Wig Maker Rooted Hair Family Medicine 03/26/24 Tami Vazquez PA-C [address] [place] [address] Doll Wig Maker Rooted Hair Family Medicine 06/07/24 07/04/24 Juanita Luong PA-C [address] [place] [address] Doll Wig Maker Rooted Hair Family Medicine 07/11/24 07/25/24 Awa Sanchez PA-C [facility] [id number] Doll Wig Maker Rooted Hair Internal Medicine 09/03/24 documented as of this encounter
--- OUTSIDE RECORDS SUMMARY | 2024-09-09 00:47 | XMS_ITS | Encounter Summary ---
Author Organization [facility] Address [address] [place], [place] [address] Care Team Providers Care Paratransit Operator Name Role Phone Nate Joyce DO Unavailable [phone] Mariam Cruz MD Primary Care Provider Morena Jara RN Unavailable [phone] Basim Cavazos Primary Care Provider Unavailabl e Pcp, No MANAGED CARE PROVIDER Primary Care Provider Unavailabl e Anastasia Ruiz DO Primary Care Provider Basim White MD Primary Care Provider [phone] Paulie Sandra MD Unavailable Paulie Sandra MD Unavailable Teagan Henriquez RN Unavailable [employer] MANAGED CARE PROVIDER.MULTIMEDIA SERVICES MANAGER Unavailable Leeanne Balderas MANAGED CARE PROVIDER.MULTIMEDIA SERVICES MANAGER Unavailable Juanita Luong PA-C Unavailable Rubi Rodriguez MANAGED CARE PROVIDER.MULTIMEDIA SERVICES MANAGER Unavailable Christiana Sims PA-C Unavailable Tami Vazquez PA-C Unavailable [phone] Juanita Luong PA-C Unavailable Awa Sanchez PA-C Unavailable Source Comments In the event this information is protected by the Federal Confidentiality of Alcohol and Drug AbusePatient Records regulations: The Federal rules restrict any use of the information to criminally investigate or prosecute any alcohol or drug abuse patient.[facility] Encounter Details Date Type Department Care Team (Late st Contact Info) Description 01/10/2015 Get Medical Advice Neurology [address] [place], [place] [phone] Lalitha Grewal(Hist) [address] [place] [address] RE: Medication Question (Not Renewal) Social History [...] Industry Job Start Date Job End Date [employer] Not on file Not on file Not on file documented as of this encounter Functional Status * Are you deaf or do you have serious difficulty hearing? Answer Date of Assessment Author No 09/02/2014 1:42 PM EDT Dori Llamas * Are you blind or do you have serious difficulty seeing, even when wearing glasses? Answer Date of Assessment Author No 09/02/2014 1:42 PM EDT Dori Llamas * Do you have serious difficulty walking or climbing stairs? Answer Date of Assessment Author Yes 09/02/2014 1:42 PM EDT Dori Llamas * Do you have difficulty dressing or bathing? Answer Date of Assessment Author No 09/02/2014 1:42 PM EDT Eboni aponte Dori * Because of a physical, mental, or emotional condition, do you have difficulty doing errands alone such as visiting a doctor's office or shopping? Answer Date of Assessment Author No 09/02/2014 1:42 PM EDT Eboni aponte Dori documented as of this encounter Mental Status * Because of a physical, mental, or emotional condition, do you have serious difficulty concentrating, remembering, or making decisions? Answer Entry Date Author No 09/02/2014 1:42 PM EDT Eboni aponte Dori documented in this encounter Plan of Treatment Upcoming Encounters Date Type Department Care Team (Latest Contact Info) Description 09/24/2024 6:00 PM EDT [address] [address] Basim White MD [address] [place] [address] 3 month follow up 11/28/2024 9:40 AM EDT [facility] Endocrin[facility] [place] [address] [place] [address] [place] [address] [address] Type one diabetes pump and cgm follow up 12/20/2024 4:00 PM EDT [address] [address] Christiana Sims PA-C [address] [place] [address] 6 Month follow up and yearly physical 03/04/2025 5:20 PM EST Office Visit [address] [address] Basim White MD [address] [place] [address] 12 month follow up documented as of [...] documented as of this encounter Care Teams Paratransit Operator Relationship Specialty Start Date End Date Mariam Cruz MD [address] [id number] PCP - General Family Medicine 02/09/13 03/08/16 Basim Cavazos PCP - General 03/09/16 04/14/16 Pcp, No, MANAGED CARE PROVIDER PCP - General 04/15/16 06/09/16 [place] [address] [place] [address] PCP - General Family Medicine 06/10/16 08/08/17 Basim White MD [address] [place] [address] PCP - General Family Medicine 08/09/17 Nate Joyce DO Real Estate Associate 02/09/13 Morena Jara, RN [address] [place] [address] Specialty Advanced Analytics Associate Endocrinology 06/08/13 04/04/16 Paulie Sandra MD [address] [facility] [address] [place] [address] Primary Staff Physician Cardiology 07/04/1807/04 Paulie Sandra MD [address] [facility] [address] [place] [address] Primary Staff Physician Cardiology 07/04/18 Teagan Henriquez, RN [address] [place], [place] [id number] Primary Care Char Filter Operator Helper Internal Medicine 06/22/23 07/21/23 [employer], MANAGED CARE PROVIDER.MULTIMEDIA SERVICES MANAGER [address] [place] [address] Electrical Instrument Maker Family Medicine 03/26/24 07/04/24 Leeanne Balderas APRN.MULTIMEDIA SERVICES MANAGER [address] [place] [address] Electrical Instrument Maker Family Medicine 03/26/24 07/04/24 Juanita Luong PA-C [address] [place] [address] Electrical Instrument Maker Family Medicine 03/26/24 07/04/24 Rubi Rodriguez APRN.MULTIMEDIA SERVICES MANAGER [address] [place] [address] Electrical Instrument Maker Family Medicine 03/26/24 07/04/24 Christiana Sims PA-C [address] [place] [address] [facility] Family Medicine 03/26/24 Tami Vazquez PA-C [address] [place] [address] Electrical Instrument Maker Family Medicine 06/07/24 07/04/24 Juanita Luong PA-C [address] [place] [address] [facility] Family Medicine 07/11/24 07/25/24 Awa Sanchez PA-C [address] [place] [address] [facility] Internal Medicine 09/03/24 documented as of this encounter
--- OUTSIDE RECORDS SUMMARY | 2024-09-09 00:48 | XMS_ITS | Encounter Summary ---
Author Organization [facility] Address [address] [place] [address] Care Team Providers Care Bath House Attendant Name Role Phone Isiah, Nate Rai DO Unavailable [phone] Basim White MD Primary Care Provider [phone] Paulie Sandra MD Unavailable [phone] Christiana Sims PA-C Unavailable [phone] Awa Sanchez PA-C Unavailable [phone] Source Comments In the event this information is protected by the Federal Confidentiality of Alcohol and Drug AbusePatient Records regulations: The Federal rules restrict any use of the information to criminally investigate or prosecute any alcohol or drug abuse patient.[facility] Reason for Visit * Reason Onset Date Comments Refill Request 08/01/2024 Encounter Details Date Type Department Care Team (Late st Contact Info) Description 08/01/2024 Refill Pulmonary Medicine [address] [place], [place] [phone] [place] [address] [place], [place] [phone] Refill Request Social History Tobacco Use Types Packs/Day Years Used Date Smoking Tobacco: Never Smokeless Tobacco: Never Alcohol Use Standard Drinks/Week Comments Yes 0 (1 standard drink = 0.6 oz pur e alcohol) rarely [facility] Utilities Answer Date Recorded In the past 12 months has th e electric, gas, oil, or water company threatened to shut off services in your home? Patient declined 07/10/2024 Social Connection and Isolat ion Panel [NHANES] Answer Date Recorded In a typical week, how many times do you talk on the phone with family, friends, or neighbors? Once a week 07/10/2024 How often do you get togethe r with friends or relatives? Never 07/10/2024 How often do you attend chur ch or sikhism services? More than 4 times per year 07/10/2024 Do you belong to any clubs o r organizations such as orthodox groups, unions, fraternal or athletic groups, or school groups? No 07/10/2024 How often do you attend meet ings of the clubs or organizations you belong to? Never 07/10/2024 Are you , , di vorced, , never , or living with a partner? 07/10/2024 AUDIT-C Answer Date Recorded Q1: How often do you have a drink containing alc ohol? Monthly or less 07/10/2024 Q2: How many drinks containi ng alcohol do you have on a typical day when you are drinking? 1 or 2 07/10/2024 Q3: How often do you have si x or more drinks on one occasion? Never 07/10/2024 Overall Financial Resource Strain (CARDIA) Answe r Date Recorded How hard is it for you to pa y for the very basics like food, housing, medical care, and heating? Patient declined 07/10/2024 PHQ-2 Answer Date Recorded PHQ-2 score 6 07/10/2024 [facility] of Occupat ional Health - Occupational Stress Questionnaire Answer Date Recorded Do you feel stress - tense, restless, nervous, or anxious, or unable to sleep at night because your mind is troubled all the time - these days? To some extent 07/10/2024 Exercise Vital Sign Answer Date Recorde d On average, how many days pe r week do you engage in moderate to strenuous exercise (like a brisk walk)? 0 days 07/10/2024 On average, how many minutes do you engage in exercise at this level? 0 min 07/10/2024 Hunger Vital Sign Answer Date Recorded Within the past 12 months, y ou worried that your food would run out before you got the money to buy more. Patient declined Within the past 12 months, t he food you bought just didn't last and you didn't have money to get more. Patient declined PRAPARE - Transportation Answer Date Re corded In the past 12 months, has l ack of transportation kept you from medical appointments or from getting medications? Patient declined 07/10/2024 In the past 12 months, has l ack of transportation kept you from meetings, work, or from getting things needed for daily living? Patient declined 07/10/2024 Housing Stability Vital Sign Answer Steve e [...] slept in a mcc (including now)? No 06/20/2023 Housing Stability Vital Sign Answer Steve e Recorded In the last 12 months, was t here a time when you were not able to pay the mortgage or rent on time? 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 [address] [place] [address] Type one diabetes pump and cgm follow up 12/20/2024 4:00 PM EDT [facility] [address] [place] [address] Christiana Sims PA-C [address] [place] [address] 6 Month follow up and yearly physical 03/04/2025 5:20 PM EST Office Visit [address] [address] Basim White MD [address] [place] [address] 12 month follow up documented as of this encounter Goals Goal Patient Goal Type Associated Problems Recent Progress Patient-Stated? Author Blood Pressure < 130/80 Blood Pressure 108/64(08/2023 7:48 AM EST) No Shena Coto, JIE Care Coordination - Diabetes Care Coordination Counseling and coordination of care No Morena Pandey, JIE Note: Knows type of diabetes. (e.g. [...] on filedocumented in this encounter Care Teams Bath House Attendant Relationship Specialty Start Date End Date Basim White MD [address] [place] [address] PCP - General Family Medicine 08/09/17 Nate Joyce DO Home Health Lpn 02/09/13 Paulie Sandra MD [address] [phone] Primary Staff Physician Cardiology 07/04/18 Christiana Sims PA-C [address] [place] [address] Count Team Clerk Family Medicine 03/26/24 Awa Sanchez PA-C [address] [place] [address] Count Team Clerk Internal Medicine 09/03/24 documented as of this encounter
--- OUTSIDE RECORDS SUMMARY | 2024-09-09 00:48 | XMS_ITS | Encounter Summary ---
Author Organization [facility] Address [address] [place], [place] [id number] Care Team Providers Care Direct Care Counselor Name Role Phone IsiahNate greenfield Cecelia OSBORNE Unavailable [phone] Basim White MD Primary Care Provider Paulie Sandra MD Unavailable Teagan Henriquez RN Unavailable Pascale Kc MECHANICAL ENGINEER.PIPE SMOKER MACHINE OPERATOR Unavailable Leeanne Balderas MECHANICAL ENGINEER.PIPE SMOKER MACHINE OPERATOR Unavailable [phone] Juanita Luong PA-C Unavailable Rubi Rodriguez MECHANICAL ENGINEER.PIPE SMOKER MACHINE OPERATOR Unavailable Christiana Sims PA-C Unavailable Tami Vazquez PA-C Unavailable [phone] Juanita Luong PA-C Unavailable Awa Sanchez PA-C Unavailable Source Comments In the event this information is protected by the Federal Confidentiality of Alcohol and Drug AbusePatient Records regulations: The Federal rules restrict any use of the information to criminally investigate or prosecute any alcohol or drug abuse patient.[facility] Encounter Details Date Type Department Care Team (Kathryn saini Contact Info) Description 04/30/2022 Patient Msg Family Medicine Radha Rose [address] [place] [address] Provider, Ccf Refill request Social History Tobacco Use Types Packs/Day Years Used Date Smoking Tobacco: Never Smokeless Tobacco: Never Alcohol Use Standard Drinks/Week Comments Yes 0 (1 standard drink = 0.6 oz pur e alcohol) rarely Social Connection and Isolation Panel [NHANES] A nswer Date Recorded In a typical week, how many times do you talk on the phone with family, friends, or neighbors? Patient declined 05/03/2022 How often do you get togethe r with friends or relatives? Never 05/03/2022 How often do you attend methodist or jew serv ices? Never 05/03/2022 Do you belong to any clubs o r organizations such as methodist groups, unions, fraternal or athletic groups, or school groups? Yes 05/03/2022 How often do you attend meet ings of the clubs or organizations you belong to? Patient declined 05/03/2022 Are you , , di vorced, , never , or living with a partner? 05/03/2022 AUDIT-C Answer Date Recorded Q1: How often do you have a drink containing alc ohol? Monthly or less 05/03/2022 Q2: How many drinks containi ng alcohol do you have on a typical day when you are drinking? 1 or 2 05/03/2022 Q3: How often do you have si x or more drinks on one occasion? Never 05/03/2022 Overall Financial Resource Strain (CARDIA) Answe r Date Recorded How hard is it for you to pa y for the very basics like food, housing, medical care, and heating? Hard 05/03/2022 PHQ-2 Answer Date Recorded PHQ-2 score 6 04/23/2022 [facility] of Occupat ional Health - Occupational Stress Questionnaire Answer Date Recorded Do you feel stress - tense, restless, nervous, or anxious, or unable to sleep at night because your mind is troubled all the time - these days? Very much 05/03/2022 Exercise Vital Sign Answer Date Recorde d On average, how many days pe r week do you engage in moderate to strenuous exercise (like a brisk walk)? 0 days 05/03/2022 On average, how many minutes do you engage in exercise at this level? 0 min 05/03/2022 Hunger Vital Sign Answer Date Recorded Within the past 12 months, y ou worried that your food would run out before you got the money to buy more. Sometimes true Within the past 12 months, t he food you bought just didn't last and you didn't have money to get more. Sometimes true PRAPARE - Transportation Answer Date Re corded In the past 12 months, has l ack of transportation kept you from medical appointments or from getting medications? Yes 04/18 In the past 12 months, has l ack of transportation kept you from meetings, work, or from getting things needed for daily living? Yes 05/03/2022 Housing Stability Vital Sign Answer Steve e Recorded In the last 12 months, was t here a time when you were not able to pay the mortgage or rent on time? Patient refused 05/03/19 23 In the last 12 months, how many places have you lived? 1 05/03/2022 In the last 12 months, was t here a time when you did not have a steady place to sleep or slept in a fdc (including now)? No 05/03/2022 Area Deprivation Index Answer Date Sergio rded National Score (1-100), lower number is lower ri sk 70 05/03/2022 State Score (1-10), lower number is lower risk N ot on file 05/03/2022 Data from: https://www.neighborhoodatlas.medicine.[facility].edu/. 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 Answer Date of Assessment Author Monthly or less 05/03/2022 2:09 PM EST User, [employer] * Q2: How many drinks containing alcohol do you have on a typical day when you are drinking? Answer Date of Assessment Author 1 or 2 05/03/2022 2:09 PM EST User, [employer] * Q3: How often do you have six or more drinks on one occasion? Answer Date of Assessment Author Never 05/03/2022 2:09 PM EST User, [employer] * Are you deaf or do you [...] Entry Date Author No 01/25/2017 3:55 PM Osmany Hart RN documented in this encounter Plan of Treatment Upcoming Encounters Date Type Department Care Team (Latest Contact Info) Description 09/24/2024 6:00 PM EDT [address] [address] Basim White MD [address] [place] [address] 3 month follow up 11/28/2024 9:40 AM EDT [facility] Endocrinology [place] [address] [place] [address] [place] [address] [address] Type one diabetes pump and cgm follow up 12/20/2024 4:00 PM EDT [address] [address] Christiana Sims PA-C [address] [place] [address] 6 Month follow up and yearly physical 03/04/2025 5:20 PM EST Office Visit [address] [address] Basim White MD [address] [place] [address] 12 month follow up documented as of [...] on filedocumented in this encounter Care Teams Direct Care Counselor Relationship Specialty Start Date End Date Basim White MD [address] [place] [address] PCP - General Family Medicine 08/09/17 Nate Joyce DO Sewing Trimmer 02/09/13 Paulie Sandra MD [address] [phone] Primary Staff Physician Cardiology 07/04/18 Teagan Henriquez, RN [address] [place] [address] Primary Care Child Support Case Officer Internal Medicine 06/22/23 07/21/23 Pascale Kc, MECHANICAL ENGINEER.PIPE SMOKER MACHINE OPERATOR [address] [place] [address] Occ Ther Family Medicine 03/26/24 07/04/24 Leeanne Balderas APRN.PIPE SMOKER MACHINE OPERATOR [address] [place] [address] Occ Ther Family Medicine 03/26/24 07/04/24 Juanita Luong PA-C [address] [place] [address] Occ Ther Family Medicine 03/26/24 07/04/24 Rubi Rodriguez APRN.PIPE SMOKER MACHINE OPERATOR [address] [place] [address] Occ Ther Family Medicine 03/26/24 07/04/24 Christiana Sims PA-C [address] [place] [address] Occ Ther Family Medicine 03/26/24 Tami Vazquez PA-C [address] [place] [address] Occ Ther Family Medicine 06/07/24 07/04/24 Juanita Luong PA-C [address] [place] [address] Occ Ther Family Medicine 07/11/24 07/25/24 Awa Sanchez PA-C [address] [place] [address] Occ Ther Internal Medicine 09/03/24 documented as of this encounter
--- OUTSIDE RECORDS SUMMARY | 2024-09-09 00:48 | XMS_ITS | Encounter Summary ---
Author Organization [facility] Address [address] [place], [place] [id number] Care Team Providers Care Data Analysis Manager Name Role Phone IsiahNate greenfield Cecelia OSBORNE Unavailable [phone] Basim White MD Primary Care Provider Paulie Sandra MD Unavailable Teagan Henriquez RN Unavailable Pascale Kc MINERAL ORE PROCESSING LABOURER.DROP FORGER HELPER Unavailable Leeanne Balderas MINERAL ORE PROCESSING LABOURER.DROP FORGER HELPER Unavailable [phone] Juanita Luong PA-C Unavailable Rubi Rodriguez MINERAL ORE PROCESSING LABOURER.DROP FORGER HELPER Unavailable Christiana Sims PA-C Unavailable Tami Vazquez PA-C Unavailable [phone] Juanita Luong PA-C Unavailable Awa Sanchez PA-C Unavailable Source Comments In the event this information is protected by the Federal Confidentiality of Alcohol and Drug AbusePatient Records regulations: The Federal rules restrict any use of the information to criminally investigate or prosecute any alcohol or drug abuse patient.[facility] Encounter Details Date Type Department Care Team (Kathryn saini Contact Info) Description 07/03/2020 Patient Msg Endocrinology [address] [place] [address] Provider, Ccf Pump & Dexcom Social History Tobacco Use Types Packs/Day Years [...] Answer Date Recorded PHQ-2 score 0 02/04/2020 [facility] of Occupat [...] N ot on file 03/22/2020 Data from: https://www.neighborhoodatlas.medicine.[facility]/. Last address used for calculation Not on [...] Industry Job Start Date Job End Date [employer] Not on file Not on file Not [...] Info) Description 09/24/2024 6:00 PM EDT [address] [address] Basim White MD [address] [place] [address] 3 month follow up 11/28/2024 9:40 AM EDT [facility] Endocrinology [place] [address] [place] [address] [place] [address] [address] Type one diabetes pump and cgm follow up 12/20/2024 4:00 PM EDT [address] [address] Christiana Sims PA-C [address] [place] [address] 6 Month follow up and yearly physical 03/04/2025 5:20 PM EST Office Visit [address] [address] Basim White MD [address] [place] [address] 12 month follow up documented as of [...] documented as of this encounter Care Teams Data Analysis Manager Relationship Specialty Start Date End Date Basim White MD [address] [place] [address] PCP - General Family Medicine 08/09/17 Nate Joyce DO Maintenance Of Way Supervisor 02/09/13 Paulie Sandra MD [address] [phone] Primary Staff Physician Cardiology 07/04/18 Teagan Henriquez, RN [address] [place] [phone] Primary Care Professional Employer Consultant Internal Medicine 06/22/23 07/21/23 Pascale Kc, MINERAL ORE PROCESSING LABOURER.DROP FORGER HELPER [address] [place] [address] Environmental Science Technician Family Medicine 03/26/24 07/04/24 Leeanne Balderas, MINERAL ORE PROCESSING LABOURER.DROP FORGER HELPER [address] [place] [address] [facility] Family Medicine 03/26/24 07/04/24 Juanita Luong PA-C [address] [place] [address] [facility] Family Medicine 03/26/24 07/04/24 Rubi Rodriguez, MINERAL ORE PROCESSING LABOURER.DROP FORGER HELPER [address] [place] [address] [facility] Family Medicine 03/26/24 07/04/24 Christiana Sims PA-C [address] [place] [address] Environmental Science Technician Family Medicine 03/26/24 Tami Vazquez PA-C [address] [place] [address] [facility] Family Medicine 06/07/24 07/04/24 Juanita Luong PA-C [address] [place] [address] Environmental Science Technician Family Medicine 07/11/24 07/25/24 Awa Sanchez PA-C [address] [place], [place] [id number] Environmental Science Technician Internal Medicine 09/03/24 documented as of this encounter
--- OUTSIDE RECORDS SUMMARY | 2024-09-09 00:48 | XMS_ITS | Encounter Summary ---
Author Organization [facility] Address [address] [place], [place] [address] Care Team Providers Care Recreation Professor Name Role Phone IsiahNate greenfield Cecelia OSBORNE Unavailable [phone] Basim White MD Primary Care Provider Pauile Sandra MD Unavailable Teagan Henriquez RN Unavailable Pascale Kc ENVELOPE FOLDER.REAL ESTATE JOB TITLES Unavailable Leeanne aBlderas ENVELOPE FOLDER.REAL ESTATE JOB TITLES Unavailable [phone] Juanita Luong PA-C Unavailable Rubi Rodriguez ENVELOPE FOLDER.REAL ESTATE JOB TITLES Unavailable Christiana Sims PA-C Unavailable Tami Vazquez PA-C Unavailable [phone] Juanita Luong PA-C Unavailable Awa Sanchez PA-C Unavailable Source Comments In the event this information is protected by the Federal Confidentiality of Alcohol and Drug AbusePatient Records regulations: The Federal rules restrict any use of the information to criminally investigate or prosecute any alcohol or drug abuse patient.[facility] Encounter Details Date Type Department Care Team (Kathryn saini Contact Info) Description 08/17/2022 Patient Msg Family Medicine Radha Rose [address] [place] [address] Provider, Ccf Please schedule your Physical Medicine and Rehab Appointment Social History Tobacco Use Types Packs/Day [...] Never 05/03/2022 How often do you attend orthodoxy or baptism serv ices? Never 05/03/2022 Do you belong to any clubs o r organizations such as orthodoxy groups, unions, fraternal or athletic groups, or [...] Answer Date Recorded PHQ-2 score 6 04/23/2022 [facility] of Occupat ional Health - Occupational Stress [...] in a care home (including now)? No 05/03/2022 Area Deprivation Index Answer Date Sergio rded National Score (1-100), lower number is lower ri sk 70 05/03/2022 State Score (1-10), lower number is lower risk N ot on file 05/03/2022 Data from: https://www.neighborhoodatlas.medicine.[facility].edu/. 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 on file Not [...] PM EDT [facility] Family Medicine [facility] [address] [place] [address] Basim White MD [address] [place] [address] 3 month follow up 11/28/2024 9:40 AM EDT [facility] Endocrinology [place] [id number] [place] [address] [place] [address] [facility] [address] [place] [address] Type one diabetes pump and cgm follow up 12/20/2024 4:00 PM EDT [facility] [address] [place] [address] Christiana Sims PA-C [address] [place] [address] 6 Month follow up and yearly physical 03/04/2025 5:20 PM EST Office Visit [facility] [address] [place] [address] Basim White MD [address] [place] [address] 12 month follow up documented as of [...] on filedocumented in this encounter Care Teams Recreation Professor Relationship Specialty Start Date End Date Basim White MD [address] [place] [address] PCP - General Family Medicine 08/09/17 Nate Joyce DO Hvac Installation Technician 02/09/13 Paulie Sandra MD [address] [phone] Primary Staff Physician Cardiology 07/04/18 Teagan Henriquez, JIE [address] [place] [address] Primary Care Picking Tech Internal Medicine 06/22/23 07/21/23 Pascale Kc, ENVELOPE FOLDER.REAL ESTATE JOB TITLES [address] [place] [address] [facility] Family Medicine 03/26/24 07/04/24 Leeanne Balderas, ENVELOPE FOLDER.REAL ESTATE JOB TITLES [address] [place] [address] [employer] Family Medicine 03/26/24 07/04/24 Juanita Luong PA-C [address] [place] [address] [facility] Family Medicine 03/26/24 07/04/24 Rubi Rodriguez, ENVELOPE FOLDER.REAL ESTATE JOB TITLES [address] [place] [address] [employer] Medicine 03/26/24 07/04/24 Christiana Sims PA-C [address] [place] [address] [employer] Family Medicine 03/26/24 Tami Vazquez PA-C [address] [place] [address] [employer] 06/07/24 07/04/24 Juanita Luong PA-C [address] [place] [address] [employer] Family Medicine 07/11/24 07/25/24 Awa Sanchez PA-C [address] [place] [address] [employer] Internal Medicine 09/03/24 documented as of this encounter
--- OUTSIDE RECORDS SUMMARY | 2024-09-09 00:48 | XMS_ITS | Encounter Summary ---
Author Organization [facility] Address [address] [place], [place] [id number] Care Team Providers Care Social Media Developer Name Role Phone IsiahNate greenfield Cecelia OSBORNE Unavailable [phone] Basim White MD Primary Care Provider Paulie Sandra MD Unavailable [phone] Teagan Henriquez RN Unavailable Pascale Kc SPORTS SPECIALIST.RELIEF DOCKING MASTER Unavailable Leeanne Balderas SPORTS SPECIALIST.RELIEF DOCKING MASTER Unavailable [phone] Juanita Luong PA-C Unavailable Rubi Rodriguez SPORTS SPECIALIST.RELIEF DOCKING MASTER Unavailable Christiana Sims PA-C Unavailable Tami Vazquez PA-C Unavailable [phone] Juanita Luong PA-C Unavailable Awa Sanchez PA-C Unavailable Source Comments In the event this information is protected by the Federal Confidentiality of Alcohol and Drug AbusePatient Records regulations: The Federal rules restrict any use of the information to criminally investigate or prosecute any alcohol or drug abuse patient.[facility] Encounter Details Date Type Department Care Team (Kathryn saini Contact Info) Description 05/07/2022 [address] M[address] [facility] [address] [place] [address] Provider, Ccf NEW REFERRAL: CHIROPRACTOR Social History Tobacco Use Types Packs/Day Years [...] Never 05/03/2022 How often do you attend shinto or jain serv ices? Never 05/03/2022 Do you belong [...] Answer Date Recorded PHQ-2 score 6 04/23/2022 [facility] of Occupat ional Health - Occupational Stress [...] slept in a fci (including now)? No 05/03/2022 Area Deprivation Index Answer Date Sergio rded National Score (1-100), lower number is lower ri sk 70 05/03/2022 State Score (1-10), lower number is lower risk N ot on file 05/03/2022 Data from: https://www.neighborhoodatlas.medicine.[facility].edu/. Last [...] Industry Job Start Date Job End Date [employer] Not on file Not on file Not [...] Contact Info) Description 09/24/2024 6:00 PM EDT [facility] Medicine [place] [address] [place] [address] Basim White MD [address] [place] [address] 3 month follow up 11/28/2024 9:40 AM EDT [facility] Endocrinology [place] [address] [place] [phone] [place] [address] [address] Type one diabetes pump and cgm follow up 12/20/2024 4:00 PM EDT [facility] [address] [place] [address] Christiana Sims PA-C [address] [place] [address] 6 Month follow up and yearly physical 03/04/2025 5:20 PM EST Office Visit [facility] [address] [place] [address] Basim White MD [address] [place] [address] 12 month follow up documented as of [...] on filedocumented in this encounter Care Teams Social Media Developer Relationship Specialty Start Date End Date Basim White MD [address] [place] [address] PCP - General Family Medicine 08/09/17 Nate Joyce DO Pewter Caster 02/09/13 Paulie Sandra MD [address] [phone] Primary Staff Physician Cardiology 07/04/18 Teagan Henriquez, JIE [address] [place] [address] Primary Care Drafting Instructor Internal Medicine 06/22/23 07/21/23 Pascale cK, SPORTS SPECIALIST.RELIEF DOCKING MASTER [address] [place] [address] [facility] 03/26/24 07/04/24 Leeanne Balderas, SPORTS SPECIALIST.RELIEF DOCKING MASTER [address] [place] [address] [facility] 03/26/24 07/04/24 Juanita Luong PA-C [address] [place] [address] [facility] 03/26/24 07/04/24 Rubi Rodriguez, SPORTS SPECIALIST.RELIEF DOCKING MASTER [address] [place] [address] [facility] 03/26/24 07/04/24 Christiana Sims PA-C [address] [place] [address] [facility] 03/26/24 Tami Vazquez PA-C [address] [place] [address] [facility] 06/07/24 07/04/24 Juanita Luong PA-C [address] [place] [address] [facility] 07/11/24 07/25/24 Awa Sanchez PA-C [address] [place] [id number] [facility] Internal Medicine 09/03/24 documented as of this encounter"
--- OUTSIDE RECORDS SUMMARY | 2024-09-09 00:48 | XMS_ITS | Encounter Summary ---
Author Organization [facility] Address [address] [place], [place] [address] Care Team Providers Care Housekeeper Home Name Role Phone IsiahNate greenfield Cecelia OSBORNE Unavailable [phone] Basim White MD Primary Care Provider [phone] Paulie Sandra MD Unavailable Teagan Henriquez RN Unavailable Pascale Kc UNDER TRIMMER.NAILHEAD OPERATOR Unavailable Leeanne Balderas UNDER TRIMMER.NAILHEAD OPERATOR Unavailable [phone] Juanita Luong PA-C Unavailable Rubi Rodriguez UNDER TRIMMER.NAILHEAD OPERATOR Unavailable Christiana Sims PA-C Unavailable Tami Vazquez PA-C Unavailable [phone] Juanita Luong PA-C Unavailable Awa Sanchez PA-C Unavailable Source Comments In the event this information is protected by the Federal Confidentiality of Alcohol and Drug AbusePatient Records regulations: The Federal rules restrict any use of the information to criminally investigate or prosecute any alcohol or drug abuse patient.[facility] Encounter Details Date Type Department Care Team (Late st Contact Info) Description 01/26/2020 Get Medical Advice General Surgery [address] [place] [address] Dior Martinez, UNDER TRIMMER.COMPLIANCE CONSULTANT [address] [place] [address] RE: Upcoming Appointment Question Social History Tobacco [...] often do you attend chur ch or gnosticist services? More than 4 times per year 09/29/2019 Do you belong to any clubs o r organizations such as yazidi groups, unions, fraternal or athletic groups, or school groups? No 09/29/2019 How often do you attend meet ings of the clubs or organizations you belong to? Never 09/29/2019 Are you , , di vorced, , never , or living with a partner? 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 No / Unsure 01/24/2020 1:48 PM EDT documented as of this encounter [...] Info) Description 09/24/2024 6:00 PM EDT [address] [address] Basim White MD [address] [place] [address] 3 month follow up 11/28/2024 9:40 AM EDT [facility] Endocrinology [place] [id number] [place] [address] [place] [address] [address] Type one diabetes pump and cgm follow up 12/20/2024 4:00 PM EDT [address] [address] Christiana Sims PA-C [address] [place] [address] 6 Month follow up and yearly physical 03/04/2025 5:20 PM EST Office Visit [address] [address] Basim White MD [address] [place] [address] 12 month follow up documented as of [...] documented as of this encounter Care Teams Housekeeper Home Relationship Specialty Start Date End Date Basim White MD [address] [place] [address] PCP - General Family Medicine 08/09/17 Nate Joyce DO Interface Engineer 02/09/13 Paulie Sandra MD [address] [address] Primary Staff Physician Cardiology 07/04/18 Teagan Henriquez, RN [address] [place] [address] Primary Care Die Trimmer Internal Medicine 06/22/23 07/21/23 Pascale Kc, UNDER TRIMMER.NAILHEAD OPERATOR [address] [place] [address] Pathology Lab Technician Family Medicine 03/26/24 07/04/24 Leeanne Balderas, UNDER TRIMMER.NAILHEAD OPERATOR [address] [place] [address] Pathology Lab Technician Family Medicine 03/26/24 07/04/24 Juanita Luong PA-C [address] [place] [address] Pathology Lab Technician Family Medicine 03/26/24 07/04/24 Rubi Rodrgiuez, UNDER TRIMMER.NAILHEAD OPERATOR [address] [place] [address] Pathology Lab Technician Family Medicine 03/26/24 07/04/24 Christiana Sims PA-C [address] [place] [address] Pathology Lab Technician Family Medicine 03/26/24 Tami Vazquez PA-C [address] [place] [address] Pathology Lab Technician Family Medicine 06/07/24 07/04/24 Juanita Luong PA-C [address] [place] [address] Pathology Lab Technician Family Medicine 07/11/24 07/25/24 Awa Sanchez PA-C 5172 [place] [address] Pathology Lab Technician Internal Medicine 09/03/24 documented as of this encounter
--- OUTSIDE RECORDS SUMMARY | 2024-09-09 00:48 | XMS_ITS | Encounter Summary ---
Author Organization [facility] Address [address] [place], [place] [id number] Care Team Providers Care User Experience Manager Name Role Phone IsiahNate greenfield Cecelia OSBORNE Unavailable [phone] Basim White MD Primary Care Provider Paulie Sandra MD Unavailable [phone] Teagan Henriquez RN Unavailable Pascale Kc PARKER.DRYING TUNNEL OPERATOR Unavailable Leeanne Balderas PARKER.DRYING TUNNEL OPERATOR Unavailable [phone] Juanita Luong PA-C Unavailable Rubi Rodriguez PARKER.DRYING TUNNEL OPERATOR Unavailable Christiana Sims PA-C Unavailable Tami Vazquez PA-C Unavailable [phone] Juanita Luong PA-C Unavailable Awa Sanchez PA-C Unavailable Source Comments In the event this information is protected by the Federal Confidentiality of Alcohol and Drug AbusePatient Records regulations: The Federal rules restrict any use of the information to criminally investigate or prosecute any alcohol or drug abuse patient.[facility] Encounter Details Date Type Department Care Team (Late st Contact Info) Description 06/01/2022 Get Medical Advice Family Medicine [place] [address] [place], [place] [id number] Basim White MD [address] [place], [place] [phone] Still having bad cough Social History Tobacco Use Types Packs/Day Years [...] Never 05/03/2022 How often do you attend latter-day or synagogue serv ices? Never 05/03/2022 Do you belong [...] Answer Date Recorded PHQ-2 score 6 04/23/2022 [facility] of Occupat ional Health - Occupational Stress [...] slept in a snf (including now)? No 05/03/2022 Area Deprivation Index Answer Date Sergio rded National Score (1-100), lower number is lower ri sk 70 05/03/2022 State Score (1-10), lower number is lower risk N ot on file 05/03/2022 Data from: https://www.neighborhoodatlas.medicine.[facility].edu/. 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 Not on file Not [...] Contact Info) Description 09/24/2024 6:00 PM EDT [facility] [address] [place] [address] Basim White MD [address] [place] [address] 3 month follow up 11/28/2024 9:40 AM EDT [facility] Endocrinology [place] [address] [place] [address] [place] [address] [facility] [address] [place] [address] Type one diabetes pump and cgm follow up 12/20/2024 4:00 PM EDT [facility] Medicine [place] [address] [place] [address] Christiana Sims PA-C [address] [place] [address] 6 Month follow up and yearly physical 03/04/2025 5:20 PM EST Office Visit [facility] [address] [place] [address] Basim White MD [address] [place] [address] 12 month follow up documented as of [...] on filedocumented in this encounter Care Teams User Experience Manager Relationship Specialty Start Date End Date Basim White MD [address] [place] [id number] PCP - General Family Medicine 08/09/17 Nate Joyce DO Dust Collector Attendant 02/09/13 Paulie Sandra MD [address] [phone] Primary Staff Physician Cardiology 07/04/18 Teagan Henriquez, RN 6000 [place] [address] Primary Care Panel Saw Operator Internal Medicine 06/22/23 07/21/23 Pascale Kc APRN.DRYING TUNNEL OPERATOR [address] [place] [address] Mechanism Assembler Family Medicine 03/26/24 07/04/24 Leeanne Balderas APRN.DRYING TUNNEL OPERATOR [address] [place] [address] Mechanism Assembler Family Medicine 03/26/24 07/04/24 Juanita Luong PA-C [address] [place] [address] Mechanism Assembler Family Medicine 03/26/24 07/04/24 Rubi Rodriguez APRN.DRYING TUNNEL OPERATOR [address] [place] [address] Mechanism Assembler Family Medicine 03/26/24 07/04/24 Christiana Sims PA-C [address] [place] [address] Mechanism Assembler Family Medicine 03/26/24 Tami Vazquez PA-C [address] [place] [address] Mechanism Assembler Family Medicine 06/07/24 07/04/24 Juanita Luong PA-C [address] [place] [address] Mechanism Assembler Family Medicine 07/11/24 07/25/24 Awa Sanchez PA-C [address] [place] [address] Mechanism Assembler Internal Medicine 09/03/24 documented as of this encounter
--- OUTSIDE RECORDS SUMMARY | 2024-09-09 00:48 | XMS_ITS | Encounter Summary ---
Author Organization [facility] Address [address] [place], [place] [address] Care Team Providers Care Public Welfare Worker Name Role Phone IsiahNate greenfield Cecelia OSBORNE Unavailable [phone] Basim White MD Primary Care Provider Paulie Sandra MD Unavailable [phone] Teagan Henriquez RN Unavailable Pascale Kc HORIZONTAL DRILL OPERATOR.RUBBER AND PLASTICS WORKER Unavailable Leeanne Balderas HORIZONTAL DRILL OPERATOR.RUBBER AND PLASTICS WORKER Unavailable [phone] Juanita Luong PA-C Unavailable Rubi Rodriguez HORIZONTAL DRILL OPERATOR.RUBBER AND PLASTICS WORKER Unavailable Christiana Sims PA-C Unavailable Tami Vazquez PA-C Unavailable [phone] Juanita Luong PA-C Unavailable Awa Sanchez PA-C Unavailable Source Comments In the event this information is protected by the Federal Confidentiality of Alcohol and Drug AbusePatient Records regulations: The Federal rules restrict any use of the information to criminally investigate or prosecute any alcohol or drug abuse patient.[facility] Encounter Details Date Type Department Care Team (Kathryn saini Contact Info) Description 07/19/2022 Patient Msg Ophthalmology [address] [place] [address] Provider, [facility] Canceled Appointment Social History Tobacco Use Types Packs/Day [...] Never 05/03/2022 How often do you attend anabaptist or worship serv ices? Never 05/03/2022 Do you belong to any clubs o r organizations such as anabaptist groups, unions, fraternal or athletic groups, or [...] Answer Date Recorded PHQ-2 score 6 04/23/2022 [facility] Occupational Stress Questionnaire Answer [...] slept in a mcc (including now)? No 05/03/2022 Area Deprivation Index Answer Date Sergio rded National Score (1-100), lower number is lower ri sk 70 05/03/2022 State Score (1-10), lower number is lower risk N ot on file 05/03/2022 Data from: https://www.neighborhoodatlas.medicine.[employer].edu/. Last address used for [...] Job Start Date Job End Date [employer] Not on file Not on file Not [...] Contact Info) Description 09/24/2024 6:00 PM EDT [facility] Medicine [place] [address] [place] [address] Basim White MD 450 [place] [address] 3 month follow up 11/28/2024 9:40 AM EDT [facility] Endocrinology [place] [address] [place] [phone] [place] [address] [address] [place] [address] Type one diabetes pump and cgm follow up 12/20/2024 4:00 PM EDT [facility] [address] [place] [address] Christiana Sims PA-C 450 [place] [address] 6 Month follow up and yearly physical 03/04/2025 5:20 PM EST Office [facility] [address] [place] [address] Basim White MD [address] [place] [address] 12 month follow up documented as of [...] on filedocumented in this encounter Care Teams Public Welfare Worker Relationship Specialty Start Date End Date Basim White MD [address] [place] [address] PCP - General Family Medicine 08/09/17 Nate Joyce DO Community Planner 02/09/13 Paulie Sandra MD [address] [address] Primary Staff Physician Cardiology 07/04/18 Teagan Henriquez, JIE 6000 [place] [address] Primary Care Form Tamping Machine Operator Internal Medicine 06/22/23 07/21/23 Pascale Kc HORIZONTAL DRILL OPERATOR.RUBBER AND PLASTICS WORKER [address] [place] [address] [facility] 03/26/24 07/04/24 Leeanne Balderas APRN.RUBBER AND PLASTICS WORKER [address] [place] [address] Extractor Puller Family Medicine 03/26/24 07/04/24 Juanita Luong PA-C [address] [place] [address] Extractor Puller Family Medicine 03/26/24 07/04/24 Rubi Rodriguez APRN.RUBBER AND PLASTICS WORKER [address] [place] [address] Extractor Puller Family Medicine 03/26/24 07/04/24 Christiana Sims PA-C [address] [place] [address] [facility] Family Medicine 03/26/24 Tami Vazquez PA-C [address] [place] [address] [facility] Family Medicine 06/07/24 07/04/24 Juanita Luong PA-C [address] [place] [address] [facility] Family [facility] 07/11/24 07/25/24 Awa Sanchez PA-C [address] [place] [address] [id number] [facility] Internal Medicine 09/03/24 documented as of this encounter
--- OUTSIDE RECORDS SUMMARY | 2024-09-09 00:48 | XMS_ITS | Encounter Summary ---
Author Organization [facility] Address [address] [place], [place] [address] Care Team Providers Care Stone Gang Sawyer Name Role Phone IsiahNate greenfield Cecelia OSBORNE Unavailable [phone] Basim White MD Primary Care Provider Paulie Sandra MD Unavailable Teagan Henriquez RN Unavailable Pascale Kc REPEAT CHIEF.TILE INSTALLER Unavailable Leeanne Balderas REPEAT CHIEF.TILE INSTALLER Unavailable [phone] Juanita Luong PA-C Unavailable Rubi Rodriguez REPEAT CHIEF.TILE INSTALLER Unavailable Christiana Sims PA-C Unavailable Tami Vazquez PA-C Unavailable [phone] Juanita Luong PA-C Unavailable Awa Sanchez PA-C Unavailable Source Comments In the event this information is protected by the Federal Confidentiality of Alcohol and Drug AbusePatient Records regulations: The Federal rules restrict any use of the information to criminally investigate or prosecute any alcohol or drug abuse patient.[facility] Encounter Details Date Type Department Care Team (Kathryn saini Contact Info) Description 02/25/2020 Get Medical Advice BMI [facility] [place] [address] [place] [address] [place] [address] [address] [place] [address] RE: Visit Follow Up Question Social History [...] Date Recorded PHQ-2 score 0 02/04/2020 [facility] of Occupat ional Health [...] in a penitentiary (including now)? 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 Unable to assess 02/19/2020 3:55 PM EST documented as of this encounter [...] encounter Miscellaneous Notes * Telephone Encounter - Juanita Jason - 02/26/2020 9:39 AM EST Forwarded to Edgar to follow up. Juanita Dudley documented in this encounter Plan of Treatment Upcoming Encounters Date Type Department Care Team (Latest Contact Info) Description 09/24/2024 6:00 PM EDT [address] [address] Basim White MD [address] [place] [address] 3 month follow up 11/28/2024 9:40 AM EDT [facility] Endocrinology [place] [address] [place] [address] [place] [address] [address] Type one diabetes pump and cgm follow up 12/20/2024 4:00 PM EDT [address] [address] Christiana Sims PA-C [address] [place] [address] 6 Month follow up and yearly physical 03/04/2025 5:20 PM EST Office Visit [address] [address] Basim White MD [address] [place] [address] 12 month follow up documented as of [...] documented as of this encounter Care Teams Stone Gang Sawyer Relationship Specialty Start Date End Date Basim White MD [address] [place] [address] PCP - General Family Medicine 08/09/17 Nate Joyce DO Race Relations Adviser 02/09/13 Paulie Sandra MD [address] [facility] [phone] Primary Staff Physician Cardiology 07/04/18 Teagan Henriquez, RN [address] [place] [phone] Primary Care Desulphurizer Operator Internal Medicine 06/22/23 07/21/23 Pascale Kc, REPEAT CHIEF.TILE INSTALLER [address] [place] [address] Decorator Consultant Family Medicine 03/26/24 07/04/24 Leeanne Balderas, REPEAT CHIEF.TILE INSTALLER [address] [place] [address] Decorator Consultant Family Medicine 03/26/24 07/04/24 Juanita Luong PA-C [address] [place] [address] Decorator Consultant Family Medicine 03/26/24 07/04/24 Rubi Rodriguez, REPEAT CHIEF.TILE INSTALLER [address] [place] [address] Decorator Consultant Family Medicine 03/26/24 07/04/24 Christiana Sims PA-C [address] [place] [address] Decorator Consultant Family Medicine 03/26/24 Tami Vazquez PA-C [address] [place] [address] Decorator Consultant Family Medicine 06/07/24 07/04/24 Juanita Luong PA-C [address] [place] [address] Decorator Consultant Family Medicine 07/11/24 07/25/24 Awa Sanchez PA-C [facility] [place], [place] [address] Decorator Consultant Internal Medicine 09/03/24 documented as of this encounter
--- OUTSIDE RECORDS SUMMARY | 2024-09-09 00:48 | XMS_ITS | Encounter Summary ---
Author Organization [facility] Address [address] [place], [place] [address] Care Team Providers Care Clinical Data Abstractor Name Role Phone IsiahNtae greenfield Cecelia OSBORNE Unavailable [phone] Basim White MD Primary Care Provider [phone] Paulie Sandra MD Unavailable [phone] Teagan Henriquez RN Unavailable Pascale Kc BASKET MAKER.RECEPTIONIST/TELEPHONE OPERATOR Unavailable Leeanne Balderas BASKET MAKER.RECEPTIONIST/TELEPHONE OPERATOR Unavailable [phone] Juanita Luong PA-C Unavailable Rubi Rodriguez BASKET MAKER.RECEPTIONIST/TELEPHONE OPERATOR Unavailable Christiana Sims PA-C Unavailable Tami Vazquez PA-C Unavailable [phone] Juanita Luong PA-C Unavailable Awa Sanchez PA-C Unavailable Source Comments In the event this information is protected by the Federal Confidentiality of Alcohol and Drug AbusePatient Records regulations: The Federal rules restrict any use of the information to criminally investigate or prosecute any alcohol or drug abuse patient.[facility] Encounter Details Date Type Department Care Team (Late st Contact Info) Description 03/16/2020 Get Medical Advice General Surgery [address] [place] [address] Dior Martinez, BASKET MAKER.DYE COLORIST DYER [address] [place] [address] RE: Upcoming Appointment Question Social History Tobacco [...] often do you attend chur ch or adventist services? More than 4 times per year 09/29/2019 Do you belong to any clubs o r organizations such as mosque groups, unions, fraternal or athletic groups, or school groups? No 09/29/2019 How often do you attend meet ings of the clubs or organizations you belong to? Never 09/29/2019 Are you , , di vorced, , never , or living with a partner? 09/29/2019 PHQ-2 Answer Date Recorded PHQ-2 score 0 02/04/2020 [facility] of Occupat ional Health - Occupational [...] a mcc (including now)? 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 No / Unsure 03/17/2020 2:21 PM EST documented as of this encounter [...] Contact Info) Description 09/24/2024 6:00 PM EDT [address] [address] Basim White MD [address] [place] [address] 3 month follow up 11/28/2024 9:40 AM EDT [facility] Endocrinology [place] [address] [place] [address] [place] [address] [address] Type one diabetes pump and cgm follow up 12/20/2024 4:00 PM EDT [address] [address] Christiana Sims PA-C [address] [place] [address] 6 Month follow up and yearly physical 03/04/2025 5:20 PM EST Office Visit [address] [address] Basim White MD [address] [place] [address] 12 month follow up documented as of [...] documented as of this encounter Care Teams Clinical Data Abstractor Relationship Specialty Start Date End Date Basim White MD [address] [place] [address] PCP - General Family Medicine 08/09/17 Nate Joyce DO Nurse Office 02/09/13 Paulie Sandra MD [address] [address] Primary Staff Physician Cardiology 07/04/18 Teagan Henriquez, RN 6000 [place] [address] Primary Care Steel Pourer Helper Internal Medicine 06/22/23 07/21/23 Pascale Kc, BASKET MAKER.RECEPTIONIST/TELEPHONE OPERATOR [address] [place] [address] Hospital Corpsman Family Medicine 03/26/24 07/04/24 Leeanne Balderas, BASKET MAKER.RECEPTIONIST/TELEPHONE OPERATOR [address] [place] [address] [facility] Family Medicine 03/26/24 07/04/24 Juanita Luong PA-C [address] [place] [address] [facility] Family Medicine 03/26/24 07/04/24 Rubi Rodriguez, BASKET MAKER.RECEPTIONIST/TELEPHONE OPERATOR [address] [place] [address] [facility] Family Medicine 03/26/24 07/04/24 Christiana Sims PA-C [address] [place] [address] [facility] Family Medicine 03/26/24 Tami Vazquez PA-C [address] [place] [address] [facility] Family Medicine 06/07/24 07/04/24 Juanita Luong PA-C [address] [place] [address] [facility] Family Medicine 07/11/24 07/25/24 Awa Sanchez PA-C 5172 [place] [address] [facility] Internal Medicine 09/03/24 documented as of this encounter
--- OUTSIDE RECORDS SUMMARY | 2024-09-09 00:48 | XMS_ITS | Encounter Summary ---
Author Organization [facility] Address [address] [place], [place] [address] Care Team Providers Care Academic Affairs Assistant Name Role Phone Nate Joyce Unavailable [phone] Basim White MD Primary Care Provider Paulie Sandra MD Unavailable Paulie Sandra MD Unavailable Teagan Henriquez RN Unavailable Pascale Kc CRINKLING MACHINE OPERATOR.DIE DESIGNER APPRENTICE Unavailable Leeanne Balderas CRINKLING MACHINE OPERATOR.DIE DESIGNER APPRENTICE Unavailable [phone] Juanita Luong PA-C Unavailable Rubi Rodriguez CRINKLING MACHINE OPERATOR.DIE DESIGNER APPRENTICE Unavailable Christiana Sims PA-C Unavailable Tami Vazquez PA-C Unavailable [phone] Juanita Luong PA-C Unavailable Awa Sanchez PA-C Unavailable Source Comments In the event this information is protected by the Federal Confidentiality of Alcohol and Drug AbusePatient Records regulations: The Federal rules restrict any use of the information to criminally investigate or prosecute any alcohol or drug abuse patient.[facility] Encounter Details Date Type Department Care Team (Kathryn saini Contact Info) Description 02/03/2018 Patient Msg Nutrition Therapy [address] [place], [place] [id number] [place] [address] [place] [address] RE: Appointment Cancellation Request Social History Tobacco [...] 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 Not on file Not [...] Info) Description 09/24/2024 6:00 PM EDT [address] [address] Basim White MD [address] [place] [address] 3 month follow up 11/28/2024 9:40 AM EDT [facility] Endocrinology [place] [address] [place] [address] [place] [address] [address] Type one diabetes pump and cgm follow up 12/20/2024 4:00 PM EDT [address] [address] Christiana Sims PA-C [address] [place] [address] 6 Month follow up and yearly physical 03/04/2025 5:20 PM EST Office Visit [address] [address] Basim White MD [address] [place] [address] 12 month follow up documented as of [...] documented as of this encounter Care Teams Academic Affairs Assistant Relationship Specialty Start Date End Date Basim White MD 450 [place] [address] PCP - General Family Medicine 08/09/17 Nate Joyce DO Senior Analyst 02/09/13 Paulie Sandra MD [address] [address] Primary Staff Physician Cardiology 07/04/1807/04 Paulie Sandra MD [address] [address] Primary Staff Physician Cardiology 07/04/18 Teagan Henriquez, RN 6000 [place] [address] Primary Care Wool Shearing Supervisor Internal Medicine 06/22/23 07/21/23 Pascale Kc, CRINKLING MACHINE OPERATOR.DIE DESIGNER APPRENTICE [address] [place] [address] Product Safety Test Engineer Family Medicine 03/26/24 07/04/24 Leeanne Balderas, CRINKLING MACHINE OPERATOR.DIE DESIGNER APPRENTICE [address] [place] [address] Product Safety Test Engineer Family Medicine 03/26/24 07/04/24 Juanita Luong PA-C [address] [place] [address] Product Safety Test Engineer Family Medicine 03/26/24 07/04/24 Rubi Rodriguez, CRINKLING MACHINE OPERATOR.DIE DESIGNER APPRENTICE [address] [place] [address] Product Safety Test Engineer Family Medicine 03/26/24 07/04/24 Christiana Sims PA-C [address] [place] [address] Product Safety Test Engineer Family Medicine 03/26/24 Tami Vazquez PA-C [id number] [place] [address] Product Safety Test Engineer Family Medicine 06/07/24 07/04/24 Juanita Luong PA-C [address] [place] [address] Product Safety Test Engineer Family Medicine 07/11/24 07/25/24 Awa Sanchez PA-C [address] [place] [address] [id number] Product Safety Test Engineer Internal Medicine 09/03/24 documented as of this encounter
--- OUTSIDE RECORDS SUMMARY | 2024-09-09 00:48 | XMS_ITS | Encounter Summary ---
Author Organization [facility] Address [address] [place], [place] [address] Care Team Providers Care Die Tripper Name Role Phone Nate Joyce Unavailable [phone] Basim White MD Primary Care Provider Paulie Sandra MD Unavailable Paulie Sandra MD Unavailable Teagan Henriquez RN Unavailable Pascale Kc STARCH MANGLE TENDER.REAL ESTATE BROKER Unavailable Leeanne Balderas STARCH MANGLE TENDER.REAL ESTATE BROKER Unavailable [phone] Juanita Luong PA-C Unavailable Rubi Rodriguez STARCH MANGLE TENDER.REAL ESTATE BROKER Unavailable Christiana Sims PA-C Unavailable Tami Vazquez PA-C Unavailable [phone] Juanita Luong PA-C Unavailable Awa Sanchez PA-C Unavailable Source Comments In the event this information is protected by the Federal Confidentiality of Alcohol and Drug AbusePatient Records regulations: The Federal rules restrict any use of the information to criminally investigate or prosecute any alcohol or drug abuse patient.[facility] Encounter Details Date Type Department Care Team (Late st Contact Info) Description 08/29/2017 Get Medical Advice Family Medicine [place] [address] [place] [address] Basim White MD [address] [place], [place] [id number] RE: Visit Follow Up Question Social History [...] 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 OK to print and send. Thank you. Dr. White * Telephone Encounter - Lidia Martinez) - 08/29/2017 3:13 PM EDT Please advise documented in this encounter Plan of Treatment Upcoming Encounters Date Type Department Care Team (Latest Contact Info) Description 09/24/2024 6:00 PM EDT [address] [address] Basim White MD [address] [place] [address] 3 month follow up 11/28/2024 9:40 AM EDT [facility] Endocrinology [place] [address] [place] [address] [place] [address] [address] Type one diabetes pump and cgm follow up 12/20/2024 4:00 PM EDT [facility] [address] [place] [address] Christiana Sims PA-C 450 [place] [address] 6 Month follow up and yearly physical 03/04/2025 5:20 PM EST Office Visit Family Medicine [place] [address] [place] [address] Basim White MD [address] [place] [address] 12 month follow up documented as of [...] documented as of this encounter Care Teams Die Tripper Relationship Specialty Start Date End Date Chrisotpher, Basim K, MD [address] [place] [address] PCP - General Family Medicine 08/09/17 Nate Joyce DO Health Education Teacher 02/09/13 Paulie Sandra MD [address] [facility] [address] [place] [address] Primary Staff Physician Cardiology 07/04/1807/04 Paulie Sandra MD [address] [facility] [address] [place] [address] Primary Staff Physician Cardiology 07/04/18 Teagan Henriquez, JIE [address] [place] [address] [phone] Primary Care Manager Of Warehouse Internal Medicine 06/22/23 07/21/23 Pascale Kc STARCH MANGLE TENDER.REAL ESTATE BROKER [address] [place] [address] E Commerce Developer Family Medicine 03/26/24 07/04/24 Leeanne Balderas, STARCH MANGLE TENDER.REAL ESTATE BROKER [address] [place] [address] E Commerce Developer Family Medicine 03/26/24 07/04/24 Juanita Luong PA-C [address] [place] [address] E Commerce Developer Family Medicine 03/26/24 07/04/24 Rubi Rodriguez, STARCH MANGLE TENDER.REAL ESTATE BROKER [address] [place] [address] E Commerce Developer Family Medicine 03/26/24 07/04/24 Christiana Sims PA-C [address] [place] [address] E Commerce Developer Family Medicine 03/26/24 Tami Vazquez PA-C [address] [place] [address] E Commerce Developer Family Medicine 06/07/24 07/04/24 Juanita Luong PA-C [address] [place] [address] E Commerce Developer Family Medicine 07/11/24 07/25/24 Awa Sanchez PA-C [address] [place] [address] E Commerce Developer Internal Medicine 09/03/24 documented as of this encounter
--- OUTSIDE RECORDS SUMMARY | 2024-09-09 00:48 | XMS_ITS | Encounter Summary ---
Author Organization [facility] Address [address] [place], [place] [address] Care Team Providers Care Railcar Foreman Name Role Phone Nate Joyce Unavailable [phone] Basim White MD Primary Care Provider [phone] Paulie Sandra MD Unavailable Paulie Sandra MD Unavailable [phone] Teagan Henriquez RN Unavailable Pascale Kc POLITICAL ORGANIZER.WAD COMPRESSOR OPERATOR ADJUSTER Unavailable Leeanne Balderas POLITICAL ORGANIZER.WAD COMPRESSOR OPERATOR ADJUSTER Unavailable [phone] Juanita Luong PA-C Unavailable Rubi Rodriguez POLITICAL ORGANIZER.WAD COMPRESSOR OPERATOR ADJUSTER Unavailable Christiana Sims PA-C Unavailable Tami Vazquez PA-C Unavailable [phone] Juanita Luong PA-C Unavailable Awa Sanchez PA-C Unavailable Source Comments In the event this information is protected by the Federal Confidentiality of Alcohol and Drug AbusePatient Records regulations: The Federal rules restrict any use of the information to criminally investigate or prosecute any alcohol or drug abuse patient.[facility] Encounter Details Date Type Department Care Team (Late st Contact Info) Description 03/26/2018 Patient Msg Urology [address] [place], [place] [id number] Roman Ward MD [address] [place] [address] RE: Appointment Cancellation Request Social History Tobacco [...] Info) Description 09/24/2024 6:00 PM EDT [address] [address] Basim White MD [address] [place] [address] 3 month follow up 11/28/2024 9:40 AM EDT [facility] Endocrinology [place] [address] [place] [address] [place] [address] [address] Type one diabetes pump and cgm follow up 12/20/2024 4:00 PM EDT [address] [address] Christiana Sims PA-C [address] [place] [address] 6 Month follow up and yearly physical 03/04/2025 5:20 PM EST Office Visit [address] [address] Basim White MD [address] [place] [address] 12 month follow up documented as of [...] documented as of this encounter Care Teams Railcar Foreman Relationship Specialty Start Date End Date Basim White MD 450 [place] [address] PCP - General Family Medicine 08/09/17 Nate Joyce DO Road Commissioner 02/09/13 Paulie Sandra MD [address] [address] Primary Staff Physician Cardiology 07/04/1807/04 Paulie Sandra MD [address] [address] Primary Staff Physician Cardiology 07/04/18 Teagan Henriquez, RN 6000 [place] [address] Primary Care Software Project Engineer Internal Medicine 06/22/23 07/21/23 Pascale Kc, POLITICAL ORGANIZER.WAD COMPRESSOR OPERATOR ADJUSTER [address] [place] [address] Statistical Methods Professor Family Medicine 03/26/24 07/04/24 Leeanne Balderas, POLITICAL ORGANIZER.WAD COMPRESSOR OPERATOR ADJUSTER [address] [place] [address] Statistical Methods Professor Family Medicine 03/26/24 07/04/24 Juanita Luong PA-C [address] [place] [address] [facility] Family Medicine 03/26/24 07/04/24 Rubi Rodriguez, POLITICAL ORGANIZER.WAD COMPRESSOR OPERATOR ADJUSTER [address] [place] [address] Statistical Methods Professor Family Medicine 03/26/24 07/04/24 Christiana Sims PA-C [address] [place] [address] Statistical Methods Professor Family Medicine 03/26/24 Tami Vazquez PA-C [address] [place] [address] Statistical Methods Professor Family Medicine 06/07/24 07/04/24 Juanita Luong PA-C [address] [place] [address] Statistical Methods Professor Family Medicine 07/11/24 07/25/24 Awa Sanchez PA-C [facility] [place], [place] 544[address] Statistical Methods Professor Internal Medicine 09/03/24 documented as of this encounter
--- OUTSIDE RECORDS SUMMARY | 2024-09-09 00:48 | XMS_ITS | Encounter Summary ---
Author Organization [facility] Address [address] [place], [place] [address] Care Team Providers Care Mash Grinder Name Role Phone IsiahNate greenfield Cecelia OSBORNE Unavailable [phone] Basim White MD Primary Care Provider Paulie Sandra MD Unavailable Teagan Henriquez RN Unavailable Pascale Kc TREASURY REPRESENTATIVE.PROCESS SUPERVISOR Unavailable Leeanne Balderas TREASURY REPRESENTATIVE.PROCESS SUPERVISOR Unavailable [phone] Juanita Luong PA-C Unavailable Rubi Rodriguez TREASURY REPRESENTATIVE.PROCESS SUPERVISOR Unavailable Christiana Sims PA-C Unavailable Tami Vazquez PA-C Unavailable [phone] Juanita Luong PA-C Unavailable Awa Sanchez PA-C Unavailable Source Comments In the event this information is protected by the Federal Confidentiality of Alcohol and Drug AbusePatient Records regulations: The Federal rules restrict any use of the information to criminally investigate or prosecute any alcohol or drug abuse patient.[facility] Encounter Details Date Type Department Care Team (Late st Contact Info) Description 01/04/2020 Patient Msg General Surgery BMI [place] [address] [facility] [place] [address] Nohemy Katz, PhD [address] [place] [phone] RE: Therapist's info Social History Tobacco Use Types Packs/Day Years [...] Answer Date Recorded PHQ-2 Score 6 12/15/2019 [facility] of Occupat ional Health - [...] 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 Not on file Not [...] Contact Info) Description 09/24/2024 6:00 PM EDT [address] [address] Basim White MD [address] [place] [address] 3 month follow up 11/28/2024 9:40 AM EDT [facility] Endocrinology [place] [address] [place] [address] [place] [address] [address] Type one diabetes pump and cgm follow up 12/20/2024 4:00 PM EDT [address] [address] Christiana Sims PA-C [address] [place] [address] 6 Month follow up and yearly physical 03/04/2025 5:20 PM EST Office Visit [address] [address] Basim White MD [address] [place] [address] 12 month follow up documented as of [...] documented as of this encounter Care Teams Mash Grinder Relationship Specialty Start Date End Date Basim White MD 450 [place] [address] PCP - General Family Medicine 08/09/17 Nate Joyce DO Tuber Helper 02/09/13 Paulie Sandra MD [address] [address] Primary Staff Physician Cardiology 07/04/18 Teagan Henriquez, JIE [address] [place] [phone] Primary Care Vegetable Farmer Internal Medicine 06/22/23 07/21/23 Pascale Kc, TREASURY REPRESENTATIVE.PROCESS SUPERVISOR [address] [place] [address] Sea Foam Kiss Maker Family Medicine 03/26/24 07/04/24 Leeanne Balderas, TREASURY REPRESENTATIVE.PROCESS SUPERVISOR [address] [place] [address] Sea Foam Kiss Maker Family Medicine 03/26/24 07/04/24 Juanita Luong PA-C [address] [place] [address] Sea Foam Kiss Maker Family Medicine 03/26/24 07/04/24 Rubi Rodriguez, TREASURY REPRESENTATIVE.PROCESS SUPERVISOR [address] [place] [address] Sea Foam Kiss Maker Family Medicine 03/26/24 07/04/24 Christiana Sims PA-C [address] [place] [address] Sea Foam Kiss Maker Family Medicine 03/26/24 Tami Vazquez PA-C [address] [place] [address] Sea Foam Kiss Maker Family Medicine 06/07/24 07/04/24 Juanita Luong PA-C [address] [place] [address] Sea Foam Kiss Maker Family Medicine 07/11/24 07/25/24 Awa Sanchez PA-C NPI: [id number] [place] [id number] Sea Foam Kiss Maker Internal Medicine 09/03/24 documented as of this encounter
--- OUTSIDE RECORDS SUMMARY | 2024-09-09 00:48 | XMS_ITS | Encounter Summary ---
Author Organization [facility] Address [address] [place], [place] [address] Care Team Providers Care Surveying Technician Name Role Phone IsiahNate greenfield Cecelia OSBORNE Unavailable [phone] Basim White MD Primary Care Provider Paulie Sandra MD Unavailable [phone] Teagan Henriquez RN Unavailable Pascale Kc CASH REGISTER REPAIRER.HOUSEKEEPING STAFF Unavailable Leeanne Balderas CASH REGISTER REPAIRER.HOUSEKEEPING STAFF Unavailable [phone] Juanita Luong PA-C Unavailable Rubi Rodriguez CASH REGISTER REPAIRER.HOUSEKEEPING STAFF Unavailable Christiana Sims PA-C Unavailable Tami Vazquez PA-C Unavailable [phone] Juanita Luong PA-C Unavailable Awa Sanchez [...] Care Team (Kathryn saini Contact Info) Description 08/15/2022 [place] [address] Provider, Ccf Questionnaire Submission Social History Tobacco [...] How often do you attend anabaptist or bahai serv ices? Never 05/03/2022 Do you belong [...] Answer Date Recorded PHQ-2 score 6 04/23/2022 [facility] of Occupat ional Health - Occupational [...] N ot on file 05/03/2022 Data from: https://www.neighborhoodatlas.medicine.[facility].edu/. Last address used for calculation [address] [...] Industry Job Start Date Job End Date [employer] Not on file Not on file Not [...] Contact Info) Description 09/24/2024 6:00 PM EDT [facility] Family Medicine [place] [address] [place] [address] Basim White MD 450 [place] [address] 3 month follow up 11/28/2024 9:40 AM EDT [facility] Endocrinology [place] [address] [place] [address] [place] [address] [address] Type one diabetes pump and cgm follow up 12/20/2024 4:00 PM EDT [facility] [address] [place] [address] Christiana Sims PA-C [address] [place] [address] 6 Month follow up and yearly physical 03/04/2025 5:20 PM EST Office Visit [facility] [address] [place] [address] Basim White MD [address] [place] [address] 12 month follow up documented as of [...] on filedocumented in this encounter Care Teams Surveying Technician Relationship Specialty Start Date End Date Basim White MD [address] [place] [address] PCP - General Family Medicine 08/09/17 Nate Joyce DO Director Biostatistics 02/09/13 Paulie Sandra MD [address] [address] Primary Staff Physician Cardiology 07/04/18 Teagan Henriquez, JIE 6000 [place], [place] [address] Primary Care Imagery Analyst Internal Medicine 06/22/23 07/21/23 Pascale Kc CASH REGISTER REPAIRER.HOUSEKEEPING STAFF [address] [place] [address] Slasher Tender Helper Family Medicine 03/26/24 07/04/24 Leeanne Balderas APRN.HOUSEKEEPING STAFF [address] [place] [address] Slasher Tender Helper Family Medicine 03/26/24 07/04/24 Juanita Luong PA-C [address] [place] [address] Slasher Tender Helper Family Medicine 03/26/24 07/04/24 Rubi Rodriguez APRN.HOUSEKEEPING STAFF [address] [place] [address] Slasher Tender Helper Family Medicine 03/26/24 07/04/24 Christiana Sims PA-C [address] [place] [address] Slasher Tender Helper Family Medicine 03/26/24 Tami Vazquez PA-C [address] [place] [address] Slasher Tender Helper Family Medicine 06/07/24 07/04/24 Juanita Luong PA-C [address] [place] [address] Slasher Tender Helper Family Medicine 07/11/24 07/25/24 Awa Sanchez PA-C [address] [place] [address] [phone] Slasher Tender Helper Internal Medicine 09/03/24 documented as of this encounter
--- OUTSIDE RECORDS SUMMARY | 2024-09-09 00:48 | XMS_ITS | Encounter Summary ---
Author Organization [facility] Address [address] [place], [place] [address] Care Team Providers Care Damage Prevention Coordinator Name Role Phone IsiahNate greenfield Cecelia OSBORNE Unavailable [phone] Basim White MD Primary Care Provider Paulie Sandra MD Unavailable Teagan Henriquez RN Unavailable Pascale Kc RN TEAM LEADER.BENCH WORKER Unavailable Leeanne Balderas RN TEAM LEADER.BENCH WORKER Unavailable [phone] Juanita Luong PA-C Unavailable uRbi Rodriguez RN TEAM LEADER.BENCH WORKER Unavailable Christiana Sims PA-C Unavailable Tami Vazquez PA-C Unavailable [phone] Juanita Luong PA-C Unavailable Awa Sanchez PA-C Unavailable Source Comments In the event this information is protected by the Federal Confidentiality of Alcohol and Drug AbusePatient Records regulations: The Federal rules restrict any use of the information to criminally investigate or prosecute any alcohol or drug abuse patient.[facility] Encounter Details Date Type Department Care Team (Kathryn saini Contact Info) Description 06/04/2022 [facility] [place] [address] [place] [address] Provider, [place] Navigation Scheduling Social History Tobacco Use Types [...] Never 05/03/2022 How often do you attend mormonism or bahai serv ices? Never 05/03/2022 Do you belong to any clubs o r organizations such as mormonism groups, unions, fraternal or athletic groups, or [...] Answer Date Recorded PHQ-2 score 6 04/23/2022 [facility] [place] of Occupat ional Health - Occupational Stress [...] slept in a halfway (including now)? No 05/03/2022 Area Deprivation Index Answer Date Sergio rded National Score (1-100), lower number is lower ri sk 70 05/03/2022 State Score (1-10), lower number is lower risk N ot on file 05/03/2022 Data from: https://www.neighborhoodatlas.medicine.[facility].edu/. Last address used for calculation [address] [...] Industry Job Start Date Job End Date [employer] Not on file Not on file Not [...] Contact Info) Description 09/24/2024 6:00 PM EDT [facility] Medicine [place] 450 [place] [address] Basim White MD 450 [place] [address] 3 month follow up 11/28/2024 9:40 AM EDT [facility] Endocrinology [place] [address] [place] [address] Zair[place] [address] [place] [address] Type one diabetes pump and cgm follow up 12/20/2024 4:00 PM EDT [facility] [address] [place] [address] Christiana Sims PA-C 450 [place] [address] 6 Month follow up and yearly physical 03/04/2025 5:20 PM EST Office Visit [facility] [address] [place] [address] Basim White MD 450 [place] [address] 12 month follow up documented as of [...] on filedocumented in this encounter Care Teams Damage Prevention Coordinator Relationship Specialty Start Date End Date Basim White MD [address] [place] [address] PCP - General Family Medicine 08/09/17 Nate Joyce DO Sound Tester 02/09/13 Paulie Sandra MD [address] [address] Primary Staff Physician Cardiology 07/04/18 Teagan Henriquez, JIE 6000 [place], [place] [address] Primary Care Time Study Technician Internal Medicine 06/22/23 07/21/23 Pascale Kc, RN TEAM LEADER.BENCH WORKER [address] [place] [address] Activities Officer Family Medicine 03/26/24 07/04/24 Leeanne Balderas RN TEAM LEADER.BENCH WORKER [address] [place] [address] Activities Officer Family Medicine 03/26/24 07/04/24 Juanita Luong PA-C [address] [place] [address] Activities Officer Family Medicine 03/26/24 07/04/24 Rubi Rodriguez APRN.BENCH WORKER [address] [place] [address] Activities Officer Family Medicine 03/26/24 07/04/24 Christiana Sims PA-C [address] [place] [address] Activities Officer Family Medicine 03/26/24 Tami Vazquez PA-C [address] [place] [address] [facility] Family Medicine 06/07/24 07/04/24 Juanita Luong PA-C [address] [place] [address] [facility] Family Medicine 07/11/24 07/25/24 Awa Sanchez PA-C [address] [place] [address] [facility] Internal Medicine 09/03/24 documented as of this encounter
--- OUTSIDE RECORDS SUMMARY | 2024-09-09 00:48 | XMS_ITS | Encounter Summary ---
Author Organization [facility] Address [address] [place], [place] [id number] Care Team Providers Care Prescription Benefit Specialist Name Role Phone Nate Joyce DO Unavailable [phone] Mariam Cruz MD Primary Care Provider [phone] Morena Jara RN Unavailable [phone] Basim Cavazos Primary Care Provider Unavailabl e Pcp, No MAINTENANCE PORTER Primary Care Provider Unavailabl e Anastasia Ruiz DO Primary Care Provider Basim White MD Primary Care Provider [phone] Paulie Sandra MD Unavailable Paulie Sandra MD Unavailable Teagan Henriquez RN Unavailable Pascale K[employer] MAINTENANCE PORTER.WOODS WARDEN Unavailable Leeanne Balderas MAINTENANCE PORTER.WOODS WARDEN Unavailable Juanita Luong PA-C Unavailable Rubi Rodriguez MAINTENANCE PORTER.WOODS WARDEN Unavailable Christiana Sims PA-C Unavailable Tami Vazquez PA-C Unavailable [phone] Juanita Luong PA-C Unavailable Awa Sanchez PA-C Unavailable Source Comments In the event this information is protected by the Federal Confidentiality of Alcohol and Drug AbusePatient Records regulations: The Federal rules restrict any use of the information to criminally investigate or prosecute any alcohol or drug abuse patient.[facility] Encounter Details Date Type Department Care Team (Late st Contact Info) Description 12/29/2014 Patient Msg Medical Records [address] [place] [address] Provider, Ccf RE:labs Social History Tobacco Use Types Packs/Day Years [...] 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 Answer Date of Assessment Author No 09/02/2014 1:42 PM EDT Diego Llamasanie documented as of this encounter Mental Status * Because of a physical, mental, or emotional condition, do you have serious difficulty concentrating, remembering, or making decisions? Answer Entry Date Author No 09/02/2014 1:42 PM EDT Lyn Selina aponte Dori documented in this encounter Plan of Treatment Upcoming Encounters Date Type Department Care Team (Latest Contact Info) Description 09/24/2024 6:00 PM EDT [address] [address] Basim White MD [address] [place] [address] 3 month follow up 11/28/2024 9:40 AM EDT [facility] Endocrinology [place] [address] [place] [phone] [place] [address] [address] Type one diabetes pump and cgm follow up 12/20/2024 4:00 PM EDT [address] [address] Christiana Sims PA-C [address] [place] [address] 6 Month follow up and yearly physical 03/04/2025 5:20 PM EST Office Visit [address] [address] Basim White MD [address] [place] [address] 12 month follow up documented as of [...] Goal Reviewed on date: December 11, 2013 MROENA JARA RN documented as of this encounter Visit Diagnoses Not on filedocumented in this encounter Additional Health Concerns Infection Onset Date Last Indicated Resolved Time COVID-19 Rule-Out 03/22/2020 03/22/2020 03/23/2020 7:16 PM EST COVID-19 Confirmed 02/26/2021 02/26/2021 8:51 PM EST documented as of this encounter Care Teams Prescription Benefit Specialist Relationship Specialty Start Date End Date Mariam Cruz MD [address] [place] [address] PCP - General Family Medicine 02/09/13 03/08/16 Basim Cavazos PCP - General 03/09/16 04/14/16 Pcp, Karmen, ISABELLA PCP - General 04/15/16 06/09/16 [place] [address] [place] [address] PCP - General Family Medicine 06/10/16 08/08/17 Basim White MD [address] [place] [address] PCP - General Family Medicine 08/09/17 Nate Joyce DO Crisis Clinician 02/09/13 Morena Jara, RN [address] [place] [address] Specialty New Order Clerk Endocrinology 06/08/13 04/04/16 Paulie Sandra MD [address] [facility] [address] [place] [phone] Primary Staff Physician Cardiology 07/04/1807/04 Paulie Sandra MD [address] [facility] [address] [place] [phone] Primary Staff Physician Cardiology 07/04/18 Teagan Henriquez, JIE [address]000 [place] [address] Primary Care Surface Supply Breathing Apparatus Internal Medicine 06/22/23 07/21/23 Pascale Kc, MAINTENANCE PORTER.WOODS WARDEN [address] [place] [address] Wax Engraver Family Medicine 03/26/24 07/04/24 Leeanne Balderas, MAINTENANCE PORTER.WOODS WARDEN [address] [place] [address] Wax Engraver Family Medicine 03/26/24 07/04/24 Juanita Luong PA-C [address] [place] [address] Wax Engraver Family Medicine 03/26/24 07/04/24 Rubi Rodriguez APRN.[facility] [address] [place] [address] Wax Engraver Family Medicine 03/26/24 07/04/24 Christiana Sims PA-C [address] [place] [address] Wax Engraver Family Medicine 03/26/24 Tami Vazquez PA-C [address] [place] [address] Wax Engraver Family Medicine 06/07/24 07/04/24 Juanita Luong PA-C [address] [place] [address] Wax Engraver Family Medicine 07/11/24 07/25/24 Awa Sanchez PA-C [address] [place] [address] Wax Engraver Internal Medicine 09/03/24 documented as of this encounter
--- OUTSIDE RECORDS SUMMARY | 2024-09-09 00:48 | XMS_ITS | Encounter Summary ---
Author Organization [facility] Address [address] [place], [place] [address] Care Team Providers Care Quill Machine Tender Name Role Phone IsiahNate greenfield Cecelia OSBORNE Unavailable [phone] Basim White MD Primary Care Provider [phone] Paulie Sandra MD Unavailable Teagan Henriquez RN Unavailable [employer] PRESCHOOL TEACHER.PUBLIC ADDRESS SYSTEM MECHANIC Unavailable Leeanne Balderas PRESCHOOL TEACHER.PUBLIC ADDRESS SYSTEM MECHANIC Unavailable [phone] Juanita Luong PA-C Unavailable Rubi Rodriguez PRESCHOOL TEACHER.PUBLIC ADDRESS SYSTEM MECHANIC Unavailable Christiana Sims PA-C Unavailable Tami Vazquez PA-C Unavailable [phone] Juanita Luong PA-C Unavailable Awa Sanchez PA-C Unavailable Source Comments In the event this information is protected by the Federal Confidentiality of Alcohol and Drug AbusePatient Records regulations: The Federal rules restrict any use of the information to criminally investigate or prosecute any alcohol or drug abuse patient.[facility] Encounter Details Date Type Department Care Team (Late Contact Info) Description 02/04/2020 Patient Msg Neurology [address] [place] [address] Shilpa Catsaneda APRN.PUBLIC ADDRESS SYSTEM MECHANIC, PhD [address] [place] [address] Sleep study Social History Tobacco Use Types Packs/Day Years [...] often do you attend chur ch or sabianist services? More than 4 times per year [...] Answer Date Recorded PHQ-2 score 0 02/04/2020 [facility] of Occupat ional Health - Occupational [...] a skilled nursing (including now)? 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 No / Unsure 02/04/2020 4:17 PM EDT documented as of this encounter [...] Contact Info) Description 09/24/2024 6:00 PM EDT [address] [address] Basim White MD [address] [place] [address] 3 month follow up 11/28/2024 9:40 AM EDT [facility] Endocrinology [place] [address] [place] [address] [place] [address] [address] Type one diabetes pump and cgm follow up 12/20/2024 4:00 PM EDT [address] [address] Christiana Sims PA-C [address] [place] [address] 6 Month follow up and yearly physical 03/04/2025 5:20 PM EST Office Visit [address] [address] Basim White MD [address] [place] [address] 12 month follow up documented as of [...] documented as of this encounter Care Teams Quill Machine Tender Relationship Specialty Start Date End Date Basim White MD [address] [place] [address] PCP - General Family Medicine 08/09/17 Nate Joyce DO Leveler 02/09/13 Paulie Sandra MD [address] [address] Primary Staff Physician Cardiology 07/04/18 Teagan Henriquez, RN [address] [place] [address] Primary Care Bus Mechanic Internal Medicine 06/22/23 07/21/23 Pascale Kc, PRESCHOOL TEACHER.PUBLIC ADDRESS SYSTEM MECHANIC [address] [place] [address] Claim Agent Family Medicine 03/26/24 07/04/24 Leeanne Balderas, PRESCHOOL TEACHER.PUBLIC ADDRESS SYSTEM MECHANIC [address] [place] [address] Claim Agent Family Medicine 03/26/24 07/04/24 Juanita Luong PA-C [address] [place] [address] Claim Agent Family Medicine 03/26/24 07/04/24 Rubi Rodriguez, PRESCHOOL TEACHER.PUBLIC ADDRESS SYSTEM MECHANIC [address] [place] [address] Claim Agent Family Medicine 03/26/24 07/04/24 Christiana Sims PA-C [address] [place] [address] Claim Agent Family Medicine 03/26/24 Tami Vazquez PA-C [address] [place] [address] Claim Agent Family Medicine 06/07/24 07/04/24 Juanita Luong PA-C [address] [place] [address] Claim Agent Family Medicine 07/11/24 07/25/24 Awa Sanchez PA-C [address] [place] [address] Claim Agent Internal Medicine 09/03/24 documented as of this encounter
--- OUTSIDE RECORDS SUMMARY | 2024-09-09 00:48 | XMS_ITS | Encounter Summary ---
Author Organization [facility] Address [address] [place], [place] [address] Care Team Providers Care Automatic Casting Machine Operator Name Role Phone IsiahNate greenfield Cecelia OSBORNE Unavailable [phone] Basim White MD Primary Care Provider [phone] Paulie Sandra MD Unavailable Teagan Henriquez RN Unavailable P[employer] Kc VIRTUAL REALITY SPECIALIST.BELT MAKER HELPER Unavailable Leeanne Balderas VIRTUAL REALITY SPECIALIST.BELT MAKER HELPER Unavailable [phone] Juanita Luong PA-C Unavailable Rubi Rodriguez VIRTUAL REALITY SPECIALIST.BELT MAKER HELPER Unavailable Christiana Sims PA-C Unavailable Tami Vazquez PA-C Unavailable [phone] Juanita Luong PA-C Unavailable Awa Sanchez PA-C Unavailable Source Comments In the event this information is protected by the Federal Confidentiality of Alcohol and Drug AbusePatient Records regulations: The Federal rules restrict any use of the information to criminally investigate or prosecute any alcohol or drug abuse patient.[facility] Encounter Details Date Type Department Care Team (Late st Contact Info) Description 09/04/2022 Get Medical Advice Family Medicine [place] [address] [place] [address] Basim White MD [address] [place], [place] [phone] Valium Social History Tobacco Use Types Packs/Day [...] Never 05/03/2022 How often do you attend protestant or muslim serv ices? Never 05/03/2022 Do you belong [...] Answer Date Recorded PHQ-2 score 6 04/23/2022 [place] of Occupat ional Health - Occupational Stress [...] is lower risk 7 08/26/2022 Data from: https://www.neighborhoodatlas.medicine.[facility].edu/. 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 Last appointment: 07/06/2022 Next scheduled appointment: Appointments for Next 60 Days Date Time Provider Location Dept Phone 09/06/2022 1:00 PM GENERAL XRAY PHI [facility] PHI [phone] 09/08/2022 1:25 PM ERICKA TURNER [facility] [place] [phone] 09/15/2022 10:20 AM GERALDMARTÍNROSA MARIAKANNAN [facility] Jannie [phone] 09/23/2022 1:00 PM SHILPA SAMANIEGO [facility] [phone] 09/24/2022 9:40 AM MRI [facility] [phone] 09/24/2022 11:00 AM [facility] (ISTAT/1.5T) [facility] [phone] 10/12/2022 3:00 PM LAURO HYMANerst CF [phone] 11/01/2022 12:30 PM INJECTION NM [facility] REJ REJ [phone] 11/01/2022 2:30 PM [facility] REJ REJ [phone] RX INSTRUCTIONS: Respond to pharmacy Shilpa Chiang, RN documented in this encounter Plan of Treatment Upcoming Encounters Date Type Department Care Team (Latest Contact Info) Description 09/24/2024 6:00 PM EDT [address] [id number] Basim White MD [address] [place] [address] 3 month follow up 11/28/2024 9:40 AM EDT [facility] Endocrinology [place] [address] [place] [address] [place] [address] [address] Type one diabetes pump and cgm follow up 12/20/2024 4:00 PM EDT [address] [place] [address] Christiana Sims PA-C [address] [address] 6 Month follow up and yearly physical 03/04/2025 5:20 PM EST Office Visit Family Medicine [place] [address] [place] [address] Basim White MD [address] [place] [address] 12 month follow up documented as of [...] syndrome documented in this encounter Care Teams Automatic Casting Machine Operator Relationship Specialty Start Date End Date Basim White MD [facility] [place] [address] PCP - General Family Medicine 08/09/17 Nate Joyce DO Environmental Protection Specialist 02/09/13 Paulie Sandra MD [address] [phone] Primary Staff Physician Cardiology 07/04/18 Teagan Henriquez, RN [address] [place], [place] [address] Primary Care Environmental Services Coordinator Internal Medicine 06/22/23 07/21/23 Pascale Kc, VIRTUAL REALITY SPECIALIST.BELT MAKER HELPER [address] [place] [address] Environmental Marketing Representative Family [facility] 03/26/24 07/04/24 Leeanne Balderas, VIRTUAL REALITY SPECIALIST.BELT MAKER HELPER [address] [place] [address] Environmental Marketing Representative Family Medicine 03/26/24 07/04/24 Juanita Luong PA-C [address] [place] [address] Environmental Marketing Representative Family [facility] 03/26/24 07/04/24 Rubi Rodriguez, VIRTUAL REALITY SPECIALIST.BELT MAKER HELPER [address] [place] [address] [facility] Family [facility] 03/26/24 07/04/24 Christiana Sims PA-C [facility] [address] Environmental Marketing Representative Family Medicine 03/26/24 Tami Vazquez PA-C [address] [place], [place] [address] Environmental Marketing Representative Family Medicine 06/07/24 07/04/24 Juanita Luong PA-C [address] [place], [place] [address] [facility] Family Medicine 07/11/24 07/25/24 Awa Sanchez PA-C [address] [place] [id number] [facility] Internal Medicine 09/03/24 documented as of this encounter
--- OUTSIDE RECORDS SUMMARY | 2024-09-09 00:48 | XMS_ITS | Encounter Summary ---
Author Organization [facility] Address [address] [place], [place] [address] Care Team Providers Care Senior Analytic Consultant Name Role Phone IsiahNate greenfield Cecelia OSBORNE Unavailable [phone] Basim White MD Primary Care Provider Paulie Sandra MD Unavailable [phone] Teagan Henriquez RN Unavailable [employer] K[employer] PUBLIC HEALTH TECHNICIAN.WOOL HAT FINISHER Unavailable Leeanne Balderas PUBLIC HEALTH TECHNICIAN.WOOL HAT FINISHER Unavailable [phone] Juanita Luong PA-C Unavailable Rubi Rodriguez PUBLIC HEALTH TECHNICIAN.WOOL HAT FINISHER Unavailable Christiana Sims PA-C Unavailable Tami Vazquez PA-C Unavailable [phone] Juanita Luong PA-C Unavailable Awa Sanchez PA-C Unavailable Source Comments In the event this information is protected by the Federal Confidentiality of Alcohol and Drug AbusePatient Records regulations: The Federal rules restrict any use of the information to criminally investigate or prosecute any alcohol or drug abuse patient.[facility] Reason for Visit * Reason Comments CMN Encounter Details Date Type Department Care Team (Late st Contact Info) Description 03/17/2020 Abstract Neurology [address] [place] [address] Main, Sleep Center [address] [place] [phone] CMN Social History Tobacco Use Types Packs/Day [...] Answer Date Recorded PHQ-2 score 0 02/04/2020 [facility] of Occupat ional Health - Occupational [...] 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 Not on file Not [...] Info) Description 09/24/2024 6:00 PM EDT [address] [address] Basim White MD [address] [place] [address] 3 month follow up 11/28/2024 9:40 AM EDT [facility] Endocrinology [place] [address] [place] [phone] [place] [address] [address] Type one diabetes pump and cgm follow up 12/20/2024 4:00 PM EDT [address] [address] Christiana Sims PA-C [address] [place] [address] 6 Month follow up and yearly physical 03/04/2025 5:20 PM EST Office Visit [address] [address] Basim White MD [address] [place] [address] 12 month follow up documented as of [...] documented as of this encounter Care Teams Senior Analytic Consultant Relationship Specialty Start Date End Date Basim White MD [address] [place] [address] PCP - General Family Medicine 08/09/17 Nate Joyce DO Implementation Engineer 02/09/13 Paulie Sandra MD [address] [address] Primary Staff Physician Cardiology 07/04/18 Teagan Henriquez, JIE [address] [place] [phone] Primary Care Pharmacy Salesperson Internal Medicine 06/22/23 07/21/23 Pascale Kc, PUBLIC HEALTH TECHNICIAN.WOOL HAT FINISHER [id number] [place] [address] [facility] Family Medicine 03/26/24 07/04/24 Leeanne Balderas, PUBLIC HEALTH TECHNICIAN.WOOL HAT FINISHER [address] [place] [address] [facility] Family Medicine 03/26/24 07/04/24 Juanita Luong PA-C [address] [place] [address] [facility] Family Medicine 03/26/24 07/04/24 Rubi Rodriguez, PUBLIC HEALTH TECHNICIAN.WOOL HAT FINISHER [address] [place] [address] [facility] Family Medicine 03/26/24 07/04/24 Christiana Sims PA-C [address] [place] [address] [facility] Family Medicine 03/26/24 Tami Vazquez PA-C [address] [place] [address] [facility] Family Medicine 06/07/24 07/04/24 Juanita Luong PA-C [address] [place] [address] [facility] Family Medicine 07/11/24 07/25/24 Awa Sanchez PA-C [address] [place] [address] [employer] One Dealer Internal Medicine 09/03/24 documented as of this encounter
--- OUTSIDE RECORDS SUMMARY | 2024-09-09 00:48 | XMS_ITS | Encounter Summary ---
Author Organization [facility] Address [address] [place], [place] [address] Care Team Providers Care Welding Tester Name Role Phone IsiahNate greenfield Cecelia OSBORNE Unavailable [phone] Basim White MD Primary Care Provider Paulie Sandra MD Unavailable [phone] Teagan Henriquez RN Unavailable [employer]asc[employer] Kc NEEDLE LOOM OPERATOR.WIND PROJECT MANAGER Unavailable Leeanne Balderas NEEDLE LOOM OPERATOR.WIND PROJECT MANAGER Unavailable [phone] Juanita Luong PA-C Unavailable Rubi Rodriguez NEEDLE LOOM OPERATOR.WIND PROJECT MANAGER Unavailable Christiana Sims PA-C Unavailable Tami Vazquez PA-C Unavailable [phone] Juanita Luong PA-C Unavailable Awa Sanchez [...] Care Team (Kathryn saini Contact Info) Description 08/30/2022 Patient Msg Nuclear Medicine [address] [place] [address] Provider, Ccf Instructions for NM Stress testing on 09/01/22 at 10:00 am Social History Tobacco Use Types [...] Never 05/03/2022 How often do you attend judaism or mandaen serv ices? Never 05/03/2022 Do you belong [...] Answer Date Recorded PHQ-2 score 6 04/23/2022 [facility] [place] of Occupat ional Health - Occupational Stress [...] is lower risk 7 08/26/2022 Data from: https://www.neighborhoodatlas.medicine.[facility].edu/. 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 file Not [...] PM EDT [facility] Family Medicine [place] [address] [place] [address] Basim White MD [address] [place] [address] 3 month follow up 11/28/2024 9:40 AM EDT [facility] Endocrinology [place] [address] [place] [address] [place] [address] [facility] [address] [place] [address] Type one diabetes pump and cgm follow up 12/20/2024 4:00 PM EDT [facility] [address] [place] [address] Christiana Sims PA-C [address] [place] [address] 6 Month follow up and yearly physical 03/04/2025 5:20 PM EST Office Visit [facility] [address] [place] [address] Basim White MD [address] [place] [address] 12 month follow up documented as of [...] on filedocumented in this encounter Care Teams Welding Tester Relationship Specialty Start Date End Date Basim White MD [address] [place] [address] PCP - General Family Medicine 08/09/17 Nate Joyce DO Patient Services Specialist 02/09/13 Paulie Sandra MD [address] [phone] Primary Staff Physician Cardiology 07/04/18 Teagan Henriquez, JIE [address] [place] [address] Primary Care Master Tax Advisor Internal Medicine 06/22/23 07/21/23 Pascale Kc, NEEDLE LOOM OPERATOR.WIND PROJECT MANAGER [address] [place] [address] [facility] Family Medicine 03/26/24 07/04/24 Leeanne Balderas, NEEDLE LOOM OPERATOR.WIND PROJECT MANAGER [address] [place] [address] Spanish Medical Interpreter Family Medicine 03/26/24 07/04/24 Juanita Luong PA-C [address] [place] [address] [facility] Family Medicine 03/26/24 07/04/24 Rubi Rodriguez, NEEDLE LOOM OPERATOR.WIND PROJECT MANAGER [address] [place] [address] Spanish Medical Interpreter Family Medicine 03/26/24 07/04/24 Christiana Sims PA-C [address] [place] [address] Spanish Medical Interpreter Family Medicine 03/26/24 Tami Vzaquez PA-C [address] [place] [address] Spanish Medical Interpreter Family Medicine 06/07/24 07/04/24 Juanita Luong PA-C [address] [place] [address] Spanish Medical Interpreter Family Medicine 07/11/24 07/25/24 Awa Sanchez PA-C [address] [place] [address] Spanish Medical Interpreter Internal Medicine 09/03/24 documented as of this encounter
--- OUTSIDE RECORDS SUMMARY | 2024-09-09 00:48 | XMS_ITS | Encounter Summary ---
Author Organization [facility] Address [address] [place], [place] [address] Care Team Providers Care Boring Machine Operator Double End Name Role Phone IsiahNate greenfield Cecelia OSBORNE Unavailable [phone] Basim White MD Primary Care Provider Paulie Sandra MD Unavailable Teagan Henriquez RN Unavailable Pascale Kc COUNTY RECORDS MANAGEMENT OFFICER.CARE TEAM ASSISTANT Unavailable Leeanne Balderas COUNTY RECORDS MANAGEMENT OFFICER.CARE TEAM ASSISTANT Unavailable [phone] Juanita Luong PA-C Unavailable Rubi Rodriguez COUNTY RECORDS MANAGEMENT OFFICER.CARE TEAM ASSISTANT Unavailable Christiana Sims PA-C Unavailable Tami Vazquez PA-C Unavailable [phone] Juanita Luong PA-C Unavailable Awa Sanchez [...] Care Team (Late st Contact Info) Description 07/07/2022 Get Medical Advice Family Medicine [place] [address] [place] [address] Basim White MD [address] [place], [place] [id number] Open Wound Social History Tobacco Use Types Packs/Day Years [...] Never 05/03/2022 How often do you attend christianity or christian serv ices? Never 05/03/2022 Do you belong to any clubs o r organizations such as christianity groups, unions, fraternal or athletic groups, or [...] Answer Date Recorded PHQ-2 score 6 04/23/2022 [facility] of Occupat ional Health - Occupational Stress [...] N ot on file 05/03/2022 Data from: https://www.neighborhoodatlas.medicine.[facility].edu/. 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 Pt will be seen with wound care on 07/12/2022. documented in this encounter Plan of Treatment Upcoming Encounters Date Type Department Care Team (Latest Contact Info) Description 09/24/2024 6:00 PM EDT [address] [address] Basim White MD [address] [place] [address] 3 month follow up 11/28/2024 9:40 AM EDT [facility] Endocrinology [place] [address] [place] [address] [place] [address] [address] Type one diabetes pump and cgm follow up 12/20/2024 4:00 PM EDT [address] [address] Christiana Sims PA-C [address] [place] [address] 6 Month follow up and yearly physical 03/04/2025 5:20 PM EST Office Visit [address] [address] Basim White MD [address] [place] [address]133 12 month follow up documented as of [...] on filedocumented in this encounter Care Teams Boring Machine Operator Double End Relationship Specialty Start Date End Date Basim White MD [address] [place] [address] PCP - General Family Medicine 08/09/17 Nate Joyce DO Gambling Floor Supervisor 02/09/13 Paulie Sandra MD [address] [phone] Primary Staff Physician Cardiology 07/04/18 Teagan Henriquez, RN [address] [place] [address] Primary Care Entertainment Production Professional Internal Medicine 06/22/23 07/21/23 Pascale Kc, COUNTY RECORDS MANAGEMENT OFFICER.CARE TEAM ASSISTANT [address] [place] [address] Onion Topper Family Medicine 03/26/24 07/04/24 Leeanne Balderas COUNTY RECORDS MANAGEMENT OFFICER.CARE TEAM ASSISTANT [address] [place] [address] Onion Topper Family Medicine 03/26/24 07/04/24 Juanita Luong PA-C [address] [place] [address] Onion Topper Family Medicine 03/26/24 07/04/24 Rubi Rodriguez APRN.CARE TEAM ASSISTANT [address] [place] [address] Onion Topper Family Medicine 03/26/24 07/04/24 Christiana Sims PA-C [address] [place] [address] Onion Topper Family Medicine 03/26/24 Tami Vazquez PA-C [address] [place] [address] Onion Topper Family Medicine 06/07/24 07/04/24 Juanita Luong PA-C [address] [place] [address] Onion Topper Family Medicine 07/11/24 07/25/24 Awa Sanchez PA-C [address] [place] [address] Onion Topper Internal Medicine 09/03/24 documented as of this encounter
--- OUTSIDE RECORDS SUMMARY | 2024-09-09 00:48 | XMS_ITS | Encounter Summary ---
Author Organization [facility] Address [address] [place], [place] [address] Care Team Providers Care Career Development Consultant Name Role Phone Nate Joyce DO Unavailable [phone] Mariam Cruz MD Primary Care Provider [phone] Morena Jara RN Unavailable [phone] Basim Cavazos Primary Care Provider Unavailabl e Pcp, No PROCESS EXPERT Primary Care Provider Unavailabl e Anastasia Ruiz DO Primary Care Provider Basim White MD Primary Care Provider [phone] Paulie Sandra MD Unavailable Paulie Sandra MD Unavailable Teagan Henriquez RN Unavailable Pascale Kc PROCESS EXPERT.LONG TERM Unavailable Leeanne Balderas PROCESS EXPERT.LONG TERM Unavailable Juanita Luong PA-C Unavailable Rubi Rodriguez PROCESS EXPERT.LONG TERM Unavailable Christiana Sims PA-C Unavailable Tami Vazquez PA-C Unavailable [phone] Juanita Luong PA-C Unavailable Awa Sanchez PA-C Unavailable Source Comments In the event this information is protected by the Federal Confidentiality of Alcohol and Drug AbusePatient Records regulations: The Federal rules restrict any use of the information to criminally investigate or prosecute any alcohol or drug abuse patient.[facility] Encounter Details Date Type Department Care Team (Late st Contact Info) Description 01/13/2015 Patient Msg Medical Records [address] [place] [address] Provider, Ccf vitamin B6 Social History Tobacco Use Types Packs/Day Years [...] Start Date Job End Date [employer] Not on file Not on file Not [...] Author No 09/02/2014 1:42 PM EDT Eboni Marks fadi Dori documented as of this encounter Mental Status * Because of a physical, mental, or emotional condition, do you have serious difficulty concentrating, remembering, or making decisions? Answer Entry Date Author No 09/02/2014 1:42 PM EDT Eboni Marks fadi Dori documented in this encounter Plan of Treatment Upcoming Encounters Date Type Department Care Team (Latest Contact Info) Description 09/24/2024 6:00 PM EDT [address] [address] Basim White MD [address] [place] [address] 3 month follow up 11/28/2024 9:40 AM EDT [facility] Endocrinology [place] [address] [place] [address] [place] [address] [address] Type one diabetes pump and cgm follow up 12/20/2024 4:00 PM EDT [address] [address] Christiana Sims PA-C [address] [place] [address] 6 Month follow up and yearly physical 03/04/2025 5:20 PM EST Office Visit [address] [address] Basim White MD [address] [place] [address] 12 month follow up documented as of [...] documented as of this encounter Care Teams Career Development Consultant Relationship Specialty Start Date End Date Mariam Cruz MD [address] [place] [address] PCP - General Family Medicine 02/09/13 03/08/16 Basim Cavazos PCP - General 03/09/16 04/14/16 Pcp, Karmen, ISABELLA PCP - General 04/15/16 06/09/16 [place] [address] [place] [address] PCP - General Family Medicine 06/10/16 08/08/17 Basim White MD [address] [place] [address] PCP - General Family Medicine 08/09/17 Nate Joyce DO Jig And Fixture Maker 02/09/13 Morena Jara, RN [address] [place] [address] Specialty Fitter Welder Endocrinology 06/08/13 04/04/16 Paulie Sandra MD [address] [facility] [address] [place] [phone] Primary Staff Physician Cardiology 07/04/1807/04 Paulie Sandra MD [address] [facility] [address] [place] [phone] Primary Staff Physician Cardiology 07/04/18 Teagan Henriquez, JIE [address] [place] [address] Primary Care Wave Solder Offbearer Internal Medicine 06/22/23 07/21/23 Pascale Kc, PROCESS EXPERT.LONG TERM [address] [place] [address] Package Checker Family Medicine 03/26/24 07/04/24 Leeanne Balderas, PROCESS EXPERT.LONG TERM [address] [place] [address] Package Checker Family Medicine 03/26/24 07/04/24 Juanita Luong PA-C [address] [place] [address] Package Checker Family Medicine 03/26/24 07/04/24 Rubi Rodriguez APRN.[facility] [address] [place] [address] Package Checker Family Medicine 03/26/24 07/04/24 Christiana Sims PA-C [address] [place] [address] Package Checker Family Medicine 03/26/24 Tami Vazquez PA-C [address] [place] [address] Package Checker Family Medicine 06/07/24 07/04/24 Juanita Luong PA-C [address] [place] [address] Package Checker Family Medicine 07/11/24 07/25/24 Awa Sanchez PA-C [address] [place] [address] Package Checker Internal Medicine 09/03/24 documented as of this encounter
--- OUTSIDE RECORDS SUMMARY | 2024-09-09 00:48 | XMS_ITS | Encounter Summary ---
Author Organization [facility] Address [address] [place], [place] [address] Care Team Providers Care Fisher Dip Net Name Role Phone IsiahNate greenfield Cecelia OSBORNE Unavailable [phone] Basim White MD Primary Care Provider [phone] Paulie Sandra MD Unavailable [phone] Teagan Henriquez RN Unavailable Pascale Kc LOCOMOTIVE BOILERMAKER.PICKLING SOLUTION MAKER Unavailable Leeanne Balderas LOCOMOTIVE BOILERMAKER.PICKLING SOLUTION MAKER Unavailable [phone] Juanita Luong PA-C Unavailable Rubi Rodriguez LOCOMOTIVE BOILERMAKER.PICKLING SOLUTION MAKER Unavailable Christiana Sims PA-C Unavailable Tami Vazquez PA-C Unavailable [phone] Juanita Luong PA-C Unavailable Awa Sanchez PA-C Unavailable Source Comments In the event this information is protected by the Federal Confidentiality of Alcohol and Drug AbusePatient Records regulations: The Federal rules restrict any use of the information to criminally investigate or prosecute any alcohol or drug abuse patient.[facility] Encounter Details Date Type Department Care Team (Kathryn saini Contact Info) Description 03/22/2020 Patient Msg Family Medicine [address] [facility] [place], [place] [address] Provider, [facility] Trouble Shooter Enrollment Social History Tobacco Use Types Packs/Day Years [...] How often do you attend chur or worship services? More than 4 times per year 09/29/2019 Do you belong to any clubs o r organizations such as restoration groups, unions, fraternal or athletic groups, or school groups? No 09/29/2019 How often do you attend meet ings of the clubs or organizations you belong to? Never 09/29/2019 Are you , , di vorced, , never , or living with a partner? 09/29/2019 PHQ-2 Answer Date Recorded PHQ-2 score 0 02/04/2020 [facility]at ional [facility] - [...] in a custodial (including now)? Patient refused 03/22/2020 Area Deprivation Index Answer Date Sergio rded National Score (1-100), lower number is lower ri sk Not on file 03/22/2020 State Score (1-10), lower number is lower risk N ot on file 03/22/2020 Data from: https://www.neighborhoodatlas.medicine.[facility]/. 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 Not on file [...] Info) Description 09/24/2024 6:00 PM EDT [address] [address] Basim White MD [address] [place] [address] 3 month follow up 11/28/2024 9:40 AM EDT [facility] Endocrinology [place] [address] [place] [address] [place] [address] [address] Type one diabetes pump and cgm follow up 12/20/2024 4:00 PM EDT [address] [address] Christiana Sims PA-C [address] [place] [address] 6 Month follow up and yearly physical 03/04/2025 5:20 PM EST Office Visit [address] [address] Basim White MD [address] [place] [address] 12 month follow up documented as of [...] documented as of this encounter Care Teams Fisher Dip Net Relationship Specialty Start Date End Date Basim White MD [address] [place] [address] PCP - General Family Medicine 08/09/17 Nate Joyce DO Manager Of Training 02/09/13 Paulie Sandra MD [address] [address] Primary Staff Physician Cardiology 07/04/18 Teagan Henriquez, RN 6000 [place] [address] Primary Care Parking Worker Internal Medicine 06/22/23 07/21/23 Pascale Kc, LOCOMOTIVE BOILERMAKER.PICKLING SOLUTION MAKER [address] [place] [address] Relations Specialist Family Medicine 03/26/24 07/04/24 Leeanne Balderas, LOCOMOTIVE BOILERMAKER.PICKLING SOLUTION MAKER [address] [place] [address] Relations Specialist Family Medicine 03/26/24 07/04/24 Juanita Luong PA-C [address] [place] [address] Relations Specialist Family Medicine 03/26/24 07/04/24 Rubi Rodriguez, LOCOMOTIVE BOILERMAKER.PICKLING SOLUTION MAKER [address] [place] [address] Relations Specialist Family Medicine 03/26/24 07/04/24 Christiana Sims PA-C [address] [place] [address] Relations Specialist Family Medicine 03/26/24 Tami Vazquez PA-C [address] [place] [address] Relations Specialist Family Medicine 06/07/24 07/04/24 Juanita Luong PA-C [address] [place] [address] Relations Specialist Family Medicine 07/11/24 07/25/24 Awa Sanchez PA-C [address] [place] [address] Relations Specialist Internal Medicine 09/03/24 documented as of this encounter
--- NOTE | 2024-09-09 00:49 | ECG_ITS ---
[facility] Test Date: 2024-09-09 Pat Name: NIELS ADKINS Department: Room: - Gender: Female Stitcher Special Machine: : 1980 Requested By: Ned Schuler Order Number: [id number] Reading MD: AIDEE JIMENEZ M.D. Measurements Intervals [place] Rate: 79 P: 16 NE: 170 QRS: 35 QRSD: 88 T: 4 QT: 388 QTc: 423 Interpretive Statements 1100 Sinus rhythm 4068 Nonspecific Twave abnormality 8102 Low QRS voltage in chest leads 9130 borderline ECG Compared to ECG 08/21/2020 21:42:08 Low QRS voltage now present Electronically Signed On 09-09-2024 13:57:59 EDT by AIDEE JIMENEZ M.D.
--- OUTSIDE RECORDS SUMMARY | 2024-09-09 00:49 | XMS_ITS | Encounter Summary ---
Author Organization [facility] Address [address] [place], [place] [address] Care Team Providers Care Thermo Processor Name Role Phone Nate Joyce Unavailable [phone] Basim White MD Primary Care Provider [phone] Paulie Sandra MD Unavailable Paulie Sandra MD Unavailable [phone] Teagan Henriquez RN Unavailable Pascale Kc BUILDING INSULATION INSTALLER.DOCUMENT MANAGER Unavailable Leeanne Balderas BUILDING INSULATION INSTALLER.DOCUMENT MANAGER Unavailable [phone] Juanita Luong PA-C Unavailable Rubi Rodriguez BUILDING INSULATION INSTALLER.DOCUMENT MANAGER Unavailable Christiana Sims PA-C Unavailable Tami Vazquez PA-C Unavailable [phone] Juanita Luong PA-C Unavailable Awa Sanchez PA-C Unavailable Source Comments In the event this information is protected by the Federal Confidentiality of Alcohol and Drug AbusePatient Records regulations: The Federal rules restrict any use of the information to criminally investigate or prosecute any alcohol or drug abuse patient.[facility] Encounter Details Date Type Department Care Team (Late st Contact Info) Description 06/08/2018 Patient Msg Allergy [address] [place], [place] [phone] Provider, Ccf upcoming appointment Social History Tobacco Use Types Packs/Day [...] Industry Job Start Date Job End Date [employer] Not on file Not on file Not [...] Contact Info) Description 09/24/2024 6:00 PM EDT [address] [address] Basim White MD [address] [place] [address] 3 month follow up 11/28/2024 9:40 AM EDT [facility] Endocrinology [place] [address] [place] [address] [place] [address] [address] Type one diabetes pump and cgm follow up 12/20/2024 4:00 PM EDT [address] [address] Christiana Sims PA-C [address] [place] [address] 6 Month follow up and yearly physical 03/04/2025 5:20 PM EST Office Visit [address] [address] Basim White MD [address] [place] [address] 12 month follow up documented as of [...] documented as of this encounter Care Teams Thermo Processor Relationship Specialty Start Date End Date Basim White MD [address] [place] [address] PCP - General Family Medicine 08/09/17 Nate Joyce DO Bee Raiser 02/09/13 Paulie Sandra MD [address] [address] Primary Staff Physician Cardiology 07/04/1807/04 Paulie Sandra MD [address] [facility] [address] [place] [address] Primary Staff Physician Cardiology 07/04/18 Teagan Henriquez, RN [address] [place] [phone] Primary Care Drywall Mechanic Internal Medicine 06/22/23 07/21/23 Pascale Kc, BUILDING INSULATION INSTALLER.DOCUMENT MANAGER [address] [place] [address] [facility] Family Medicine 03/26/24 07/04/24 Leeanne Balderas, BUILDING INSULATION INSTALLER.DOCUMENT MANAGER [address] [place] [address] [facility] 03/26/24 07/04/24 Juanita Luong PA-C [address] [place] [address] [facility] 03/26/24 07/04/24 Rubi Rodriguez, BUILDING INSULATION INSTALLER.DOCUMENT MANAGER [address] [place] [address] [facility] Family Medicine 03/26/24 07/04/24 Christiana Sims PA-C [address] [place] [address] [facility] 03/26/24 Tami Vazquez PA-C [address] [place] [address] [facility] Family Medicine 06/07/24 07/04/24 Juanita Luong PA-C [address] [place] [address] Blueprint Developer Family Medicine 07/11/24 07/25/24 Awa Sanchez PA-C [address] [place] [address] Blueprint Developer Internal Medicine 09/03/24 documented as of this encounter
--- OUTSIDE RECORDS SUMMARY | 2024-09-09 00:49 | XMS_ITS | Encounter Summary ---
Author Organization [facility] Address [address] [place], [place] [address] Care Team Providers Care Tourist Cabin Keeper Name Role Phone Nate Joyce Unavailable [phone] Basim White MD Primary Care Provider [phone] Paulie Sandra MD Unavailable Paulie Sandra MD Unavailable Teagan Henriquez RN Unavailable Pascale Kc INSTRUCTOR ADJUNCT SURGICAL TECHNICIAN.FLOW MANAGER Unavailable Leeanne Balderas INSTRUCTOR ADJUNCT SURGICAL TECHNICIAN.FLOW MANAGER Unavailable [phone] Juanita Luong PA-C Unavailable Rubi Rodriguez INSTRUCTOR ADJUNCT SURGICAL TECHNICIAN.FLOW MANAGER Unavailable Christiana Sims PA-C Unavailable Tami Vazquez PA-C Unavailable [phone] Juanita Luong PA-C Unavailable Awa Sanchez PA-C Unavailable Source Comments In the event this information is protected by the Federal Confidentiality of Alcohol and Drug AbusePatient Records regulations: The Federal rules restrict any use of the information to criminally investigate or prosecute any alcohol or drug abuse patient.[facility] Encounter Details Date Type Department Care Team (Late st Contact Info) Description 07/24/2018 Get Medical Advice Family Medicine [place] [address] [place] [address] Basim White MD [address] [place], [place] [phone] RE: Visit Follow Up Question Social History [...] 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 file [...] Info) Description 09/24/2024 6:00 PM EDT [address] [address] Basim White MD [address] [place] [address] 3 month follow up 11/28/2024 9:40 AM EDT [facility] Endocrinology [place] [address] [place] [address] [place] [address] [address] Type one diabetes pump and cgm follow up 12/20/2024 4:00 PM EDT [address] [address] Christiana Sims PA-C [address] [place] [address] 6 Month follow up and yearly physical 03/04/2025 5:20 PM EST Office Visit [address] [address] Basim White MD [address] [place] [address] 12 month follow up documented as of [...] documented as of this encounter Care Teams Tourist Cabin Keeper Relationship Specialty Start Date End Date Basim White MD [address] [place] [address] PCP - General Family Medicine 08/09/17 Nate Joyce DO Thermometer Production Worker 02/09/13 Paulie Sandra MD [address] [phone] Primary Staff Physician Cardiology 07/04/1807/04 Paulie Sandra MD [address] [address] Primary Staff Physician Cardiology 07/04/18 Teagan Henriquez, RN [address] [place] [id number] Primary Care Senior Radiation Therapist Internal Medicine 06/22/23 07/21/23 Pascale Kc, INSTRUCTOR ADJUNCT SURGICAL TECHNICIAN.FLOW MANAGER [address] [place] [address] Rolling Machine Operator Family Medicine 03/26/24 07/04/24 Leeanne Balderas, INSTRUCTOR ADJUNCT SURGICAL TECHNICIAN.FLOW MANAGER [address] [place] [address] Rolling Machine Operator Family Medicine 03/26/24 07/04/24 Juanita Luong PA-C [address] [place] [address] Rolling Machine Operator Family Medicine 03/26/24 07/04/24 Rubi Rodriguez, INSTRUCTOR ADJUNCT SURGICAL TECHNICIAN.FLOW MANAGER [address] [place] [address] Rolling Machine Operator Family Medicine 03/26/24 07/04/24 Christiana Sims PA-C [address] [place] [address] Rolling Machine Operator Family Medicine 03/26/24 Tami Vazquez PA-C [address] [place] [address] Rolling Machine Operator Family Medicine 06/07/24 07/04/24 Juanita Luong PA-C [address] [place] [address] Rolling Machine Operator Family Medicine 07/11/24 07/25/24 Awa Sanchez PA-C [facility] [place], [place] [address] Rolling Machine Operator Internal Medicine 09/03/24 documented as of this encounter
--- OUTSIDE RECORDS SUMMARY | 2024-09-09 00:49 | XMS_ITS | Encounter Summary ---
Author Organization [facility] Address [address] [place], [place] [id number] Care Team Providers Care Charge Manager Name Role Phone IsiahNate greenfield Cecelia OSBORNE Unavailable [phone] Basim White MD Primary Care Provider Paulie Sandra MD Unavailable Teagan Henriquez RN Unavailable Pascale Kc CLINIQUE COUNTER MANAGER.PORCELAIN ENAMEL LABORER Unavailable Leeanne Balderas CLINIQUE COUNTER MANAGER.PORCELAIN ENAMEL LABORER Unavailable [phone] Juanita Luong PA-C Unavailable Rubi Rodriguez CLINIQUE COUNTER MANAGER.PORCELAIN ENAMEL LABORER Unavailable Christiana Sims PA-C Unavailable Tami Vazquez PA-C Unavailable [phone] Juanita Luong PA-C Unavailable Awa Sanchez PA-C Unavailable Source Comments In the event this information is protected by the Federal Confidentiality of Alcohol and Drug AbusePatient Records regulations: The Federal rules restrict any use of the information to criminally investigate or prosecute any alcohol or drug abuse patient.[facility] Encounter Details Date Type Department Care Team (Kathryn saini Contact Info) Description 09/29/2022 Patient Msg Rehab Medicine [address] [place] [address] Provider, Ccf Physical Medicine and Rehab Appointment Social History [...] Never 05/03/2022 How often do you attend caodaism or samaritan serv ices? Never 05/03/2022 Do you belong [...] Answer Date Recorded PHQ-2 score 6 04/23/2022 [facility] - Occupational Stress Questionnaire Answer Date [...] or slept in a alf (including now)? No 05/03/2022 Area Deprivation Index [...] Industry Job Start Date Job End Date [place] Not on file Not on file Not [...] EDT Located Within [facility] Medicine [place] [address] [place] [address] Basim White MD [address] [place] [address] 3 month follow up 11/28/2024 9:40 AM EDT [facility] Endocrinology [place] [address] [place] [phone] [place] [address] [address] Type one diabetes pump and cgm follow up 12/20/2024 4:00 PM EDT [facility] [address] [place] [address] Christiana Sims PA-C [address] [place] [address] 6 Month follow up and yearly physical 03/04/2025 5:20 PM EST Office Visit [facility] [address] [place] [address] Basim White MD [address] [place] [address] 12 month follow up documented as of [...] on filedocumented in this encounter Care Teams Charge Manager Relationship Specialty Start Date End Date Basim White MD [address] [place] [address] PCP - General Family Medicine 08/09/17 Nate Joyce DO Chief Unit Forester 02/09/13 Paulie Sandra MD [address] [address] Primary Staff Physician Cardiology 07/04/18 Teagan Henriquez RN [address] [place] [address] Primary Care Media Center Assistant Internal Medicine 06/22/23 07/21/23 Pascale Kc, CLINIQUE COUNTER MANAGER.PORCELAIN ENAMEL LABORER [address] [place] [address] [facility] 03/26/24 07/04/24 Leeanne Balderas APRN.PORCELAIN ENAMEL LABORER [address] [place] [address] Local Driver Family Medicine 03/26/24 07/04/24 Juanita Luong PA-C [address] [place] [address] Local Driver Family Medicine 03/26/24 07/04/24 Rubi Rodriguez APRN.PORCELAIN ENAMEL LABORER [address] [place] [address] Local Driver Family Medicine 03/26/24 07/04/24 Christiana Sims PA-C [address] [place] [address] Local Driver Family Medicine 03/26/24 Tami Vazquez PA-C [address] [place] [address] [facility] Family Medicine 06/07/24 07/04/24 Juanita Luong PA-C [address] [place] [address] [facility] Family Medicine 07/11/24 07/25/24 Awa Sanchez PA-C [address] [place] [id number] [facility] Internal Medicine 09/03/24 documented as of this encounter
--- OUTSIDE RECORDS SUMMARY | 2024-09-09 00:49 | XMS_ITS | Encounter Summary ---
Author Organization [facility] Address [address] [place], [place] [address] Care Team Providers Care Dye Beck Reel Operator Name Role Phone Nate Joyce DO Unavailable [phone] Mariam Cruz MD Primary Care Provider Morena Jara RN Unavailable Basim Cavazos Primary Care Provider Unavailabl e Pcp, No FITTING ROOM OPERATOR Primary Care Provider Unavailabl e Anastasia Ruiz DO Primary Care Provider Basim White MD Primary Care Provider [phone] Paulie Sandra MD Unavailable Paulie Sandra MD Unavailable Teagan Henriquez RN Unavailable Pascale Kc FITTING ROOM OPERATOR.AIR COMPRESSOR ENGINEER Unavailable Leeanne Balderas FITTING ROOM OPERATOR.AIR COMPRESSOR ENGINEER Unavailable Juanita Luong PA-C Unavailable Rubi Rodriguez FITTING ROOM OPERATOR.AIR COMPRESSOR ENGINEER Unavailable Christiana Sims PA-C Unavailable Tami Vazquez PA-C Unavailable [phone] Juanita Luong PA-C Unavailable Awa Sanchez PA-C Unavailable Source Comments In the event this information is protected by the Federal Confidentiality of Alcohol and Drug AbusePatient Records regulations: The Federal rules restrict any use of the information to criminally investigate or prosecute any alcohol or drug abuse patient.[facility] Encounter Details Date Type Department Care Team (Late st Contact Info) Description 09/23/2015 Patient Msg Medical Records [address] [place] [address] Provider, Ccf MRI results Social History Tobacco Use Types Packs/Day [...] 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 Answer Entry Date Author No 09/02/2014 1:42 PM EDT Dori Llamas documented in this encounter Plan of Treatment Upcoming Encounters Date Type Department Care Team (Latest Contact Info) Description 09/24/2024 6:00 PM EDT [address] [address] Basim White MD [address] [place] [address] 3 month follow up 11/28/2024 9:40 AM EDT [facility] Endocrinology [place] [address] [place] [address] [place] [address] [address] Type one diabetes pump and cgm follow up 12/20/2024 4:00 PM EDT [address] [address] Christiana Sims PA-C [address] [place] [address] 6 Month follow up and yearly physical 03/04/2025 5:20 PM EST Office Visit [address] [address] Basim White MD [address] [place] [address] 12 month follow up documented as of [...] documented as of this encounter Care Teams Dye Beck Reel Operator Relationship Specialty Start Date End Date Mariam Cruz MD [address] [address] PCP - General Family Medicine 02/09/13 03/08/16 Basim Cavazos PCP - General 03/09/16 04/14/16 PcpKarmen, ISABELLA PCP - General 04/15/16 06/09/16 [place] [address] [place] [address] PCP - General Family Medicine 06/10/16 08/08/17 Basim White MD [address] [place] [address] PCP - General Family Medicine 08/09/17 Nate Joyce DO Reference Services Head 02/09/13 Morena Jara, RN [address] [place] [address] Specialty Logistical Engineer Endocrinology 06/08/13 04/04/16 Paulie Sandra MD [address] [facility] [address] [place] [address] Primary Staff Physician Cardiology 07/04/1807/04 Paulie Sandra MD [address] [facility] [address] [place] [address] Primary Staff Physician Cardiology 07/04/18 Teagan Henriquez, RN [address] [place], [place] [phone] Primary Care Bowling Floor Desk Clerk Internal Medicine 06/22/23 07/21/23 Pascale Kc, FITTING ROOM OPERATOR.AIR COMPRESSOR ENGINEER [address] [place] [address] Roping Machine Tender Family Medicine 03/26/24 07/04/24 Leeanne Balderas APRN.AIR COMPRESSOR ENGINEER [address] [place] [address] Roping Machine Tender Family Medicine 03/26/24 07/04/24 Juanita Luong PA-C [address] [place] [address] Roping Machine Tender Family Medicine 03/26/24 07/04/24 Rubi Rodriguez APRN.AIR COMPRESSOR ENGINEER [address] [place] [address] Roping Machine Tender Family Medicine 03/26/24 07/04/24 Christiana Sims PA-C [address] [place] [address] Roping Machine Tender Family Medicine 03/26/24 Tami Vazquez PA-C [address] [place] [address] Roping Machine Tender Family Medicine 06/07/24 07/04/24 Juanita Luong PA-C [address] [place] [address] Roping Machine Tender Family Medicine 07/11/24 07/25/24 Awa Sanchez PA-C [address] [place] [address] Roping Machine Tender Internal Medicine 09/03/24 documented as of this encounter
--- OUTSIDE RECORDS SUMMARY | 2024-09-09 00:49 | XMS_ITS | Encounter Summary ---
Author Organization [facility] Address [address] [place], [place] [address] Care Team Providers Care Security Control Room Officer Name Role Phone Nate Joyce DO Unavailable [phone] Mariam Cruz MD Primary Care Provider Morena Jara RN Unavailable [phone] Basim Cavazos Primary Care Provider Unavailabl e Pcp, No LEGAL SUPPORT SPECIALIST Primary Care Provider Unavailabl e Anastasia Ruiz DO Primary Care Provider Basim White MD Primary Care Provider [phone] Paulie Sandra MD Unavailable Paulie Sandra MD Unavailable Teagan Henriquez RN Unavailable Pascale Kc LEGAL SUPPORT SPECIALIST.MARINE ELECTRICIAN Unavailable Leeanne Balderas LEGAL SUPPORT SPECIALIST.MARINE ELECTRICIAN Unavailable Juanita Luong PA-C Unavailable Rubi Rodriguez LEGAL SUPPORT SPECIALIST.MARINE ELECTRICIAN Unavailable Christiana Sims PA-C Unavailable Tami Vazquez PA-C Unavailable [phone] Juanita Luong PA-C Unavailable Awa Sanchez PA-C Unavailable Source Comments In the event this information is protected by the Federal Confidentiality of Alcohol and Drug AbusePatient Records regulations: The Federal rules restrict any use of the information to criminally investigate or prosecute any alcohol or drug abuse patient.[facility] Encounter Details Date Type Department Care Team (Late st Contact Info) Description 10/08/2015 Patient Msg Medical Records [address] [place] [address] Provider, Ccf Pump and CGM Social History Tobacco Use Types Packs/Day Years [...] Info) Description 09/24/2024 6:00 PM EDT [address] [address] Basim White MD [address] [place] [address] 3 month follow up 11/28/2024 9:40 AM EDT [facility] Endocrinology [place] [address] [place] [address] [place] [address] [address] Type one diabetes pump and cgm follow up 12/20/2024 4:00 PM EDT [address] [address] Christiana Sims PA-C [address] [place] [address] 6 Month follow up and yearly physical 03/04/2025 5:20 PM EST Office Visit [address] [address] Basim White MD [address] [place] [address] 12 month follow up documented as of [...] Goal Reviewed on date: December 11, 2013 OMRENA JARA, JIE documented as of this encounter Visit Diagnoses Not on filedocumented in this encounter Additional Health Concerns Infection Onset Date Last Indicated Resolved Time COVID-19 Rule-Out 03/22/2020 03/22/2020 03/23/2020 7:16 PM EST COVID-19 Confirmed 02/26/2021 02/26/2021 8:51 PM EST documented as of this encounter Care Teams Security Control Room Officer Relationship Specialty Start Date End Date Mariam Cruz MD [address] [id number] PCP - General Family Medicine 02/09/13 03/08/16 Basim Cavazos PCP - General 03/09/16 04/14/16 Pcp, Karmen, LEGAL SUPPORT SPECIALIST PCP - General 04/15/16 06/09/16 [place] [address] [place] [address] PCP - General Family Medicine 06/10/16 08/08/17 Basim White MD [address] [place] [address] PCP - General Family Medicine 08/09/17 Nate Joyce DO Company Doctor 02/09/13 Morena Jara, RN [address] [place] [address] Specialty Insurance And Benefits Clerk Endocrinology 06/08/13 04/04/16 Paulie Sandra MD [address] [facility] 110 [place] [address] Primary Staff Physician Cardiology 07/04/1807/04 Paulie Sandra MD [address] [facility] 110 [place] [address] Primary Staff Physician Cardiology 07/04/18 Teagan Henriquez, RN [address] [place], [place] [address] Primary Care Autoglazier Internal Medicine 06/22/23 07/21/23 Pascale Kc, LEGAL SUPPORT SPECIALIST.MARINE ELECTRICIAN [address] [place] [address] Pharmacy Data Analyst Family Medicine 03/26/24 07/04/24 Leeanne Balderas APRN.MARINE ELECTRICIAN [address] [place] [address] Pharmacy Data Analyst Family Medicine 03/26/24 07/04/24 Juanita Luong PA-C [address] [place] [address] Pharmacy Data Analyst Family Medicine 03/26/24 07/04/24 Rubi Rodriguez APRN.MARINE ELECTRICIAN [address] [place] [address] Pharmacy Data Analyst Family Medicine 03/26/24 07/04/24 Christiana Sims PA-C [address] [place] [address] Pharmacy Data Analyst Family Medicine 03/26/24 Tami Vazquez PA-C [address] [place] [address] Pharmacy Data Analyst Family Medicine 06/07/24 07/04/24 Juanita Luong PA-C [address] [place] [address] Pharmacy Data Analyst Family Medicine 07/11/24 07/25/24 Awa Sanchez PA-C [address] [place] [address] Pharmacy Data Analyst Internal Medicine 09/03/24 documented as of this encounter
--- OUTSIDE RECORDS SUMMARY | 2024-09-09 00:49 | XMS_ITS | Encounter Summary ---
Author Organization [facility] Address [address] [place], [place] [address] Care Team Providers Care Health Management Consultant Name Role Phone Nate Joyce Unavailable [phone] Basim White MD Primary Care Provider [phone] Paulie Sandra MD Unavailable Paulie Sandra MD Unavailable [phone] Teagan Henriquez RN Unavailable Pascale Kc AND TAXI INSTRUCTOR BUS TROLLEY.REPRODUCTION TECHNICIAN Unavailable Leeanne Balderas AND TAXI INSTRUCTOR BUS TROLLEY.REPRODUCTION TECHNICIAN Unavailable [phone] Juanita Luong PA-C Unavailable Rubi Rodriguez AND TAXI INSTRUCTOR BUS TROLLEY.REPRODUCTION TECHNICIAN Unavailable Christiana Sims PA-C Unavailable Tami Vazquez PA-C Unavailable [phone] Juanita Luong PA-C Unavailable Awa Sanchez PA-C Unavailable Source Comments In the event this information is protected by the Federal Confidentiality of Alcohol and Drug AbusePatient Records regulations: The Federal rules restrict any use of the information to criminally investigate or prosecute any alcohol or drug abuse patient.[facility] Encounter Details Date Type Department Care Team (Late st Contact Info) Description 08/04/2018 Patient Msg Pulmonary Medicine [address] [place] [address] Provider, Ccf RE: Appointment Cancellation Request Social [...] 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 file [...] Info) Description 09/24/2024 6:00 PM EDT [address] [address] Basim White MD [address] [place] [address] 3 month follow up 11/28/2024 9:40 AM EDT [facility] Endocrinology [place] [address] [place] [address] [place] [address] [address] Type one diabetes pump and cgm follow up 12/20/2024 4:00 PM EDT [address] [address] Christiana Sims PA-C [address] [place] [address] 6 Month follow up and yearly physical 03/04/2025 5:20 PM EST Office Visit [address] [address] Basim White MD [address] [place] [address] 12 month follow up documented as of [...] documented as of this encounter Care Teams Health Management Consultant Relationship Specialty Start Date End Date Basim White MD [address] [place] [address] PCP - General Family Medicine 08/09/17 Nate Joyce DO Counselor Camp 02/09/13 Paulie Sandra MD [address] [facility] 110 [place] [address] Primary Staff Physician Cardiology 07/04/1807/04 Paulie Sandra MD [address] [facility] [address] [place] [address] Primary Staff Physician Cardiology 07/04/18 Teagan Henriquez, RN [address]000 [place] [address] Primary Care Barrel Assembler Helper Internal Medicine 06/22/23 07/21/23 Pascale Kc, AND TAXI INSTRUCTOR BUS TROLLEY.REPRODUCTION TECHNICIAN [address] [place] [address] Computing Architect Family Medicine 03/26/24 07/04/24 Leeanne Balderas, AND TAXI INSTRUCTOR BUS TROLLEY.REPRODUCTION TECHNICIAN [address] [place] [address] [facility] Family [facility] 03/26/24 07/04/24 Juanita Luong PA-C [address] [place] [address] Computing Architect Family Medicine 03/26/24 07/04/24 Rubi Rodriguez, AND TAXI INSTRUCTOR BUS TROLLEY.REPRODUCTION TECHNICIAN [address] [place] [address] [facility] Family Medicine 03/26/24 07/04/24 Christiana Sims PA-C [address] [place] [address] Computing Architect Family [facility] 03/26/24 Tami Vazquez PA-C [address] [place] [address] [facility] Family Medicine 06/07/24 07/04/24 Juanita Luong PA-C [address] [place] [address] Computing Architect Family Medicine 07/11/24 07/25/24 Awa Sanchez PA-C [address] [place], [place] [address] Computing Architect Internal Medicine 09/03/24 documented as of this encounter
--- OUTSIDE RECORDS SUMMARY | 2024-09-09 00:49 | XMS_ITS | Encounter Summary ---
Author Organization [facility] Address [address] [place] [address] Care Team Providers Care Branding Machine Operator Name Role Phone Nate Joyce Unavailable [phone] Basim White MD Primary Care Provider [phone] Paulie Sandra MD Unavailable [phone] Christiana Sims PA-C Unavailable [phone] Source Comments In the event this information is protected by the Federal Confidentiality of Alcohol and Drug AbusePatient Records regulations: The Federal rules restrict any use of the information to criminally investigate or prosecute any alcohol or drug abuse patient.[facility] Reason for Visit * Reason Comments [address] Initial Consult Encounter Details Date Type Department Care Team (Late st Contact Info) Description 08/30/2024 Telephone [facility] Palliative Medicine [address] [place] [address] Basim White MD [address] [place] [id number]; Initial Consult Social History Tobacco Use Types Packs/Day Years Used Date Smoking Tobacco: Never Smokeless Tobacco: Never Alcohol Use Standard Drinks/Week Comments Yes 0 (1 standard drink = 0.6 oz pur e alcohol) rarely [facility] Utilities Answer Date Recorded In the past 12 months has e electric, gas, oil, or water company [...] Never 07/10/2024 How often do you attend [facility] ch or orthodoxy services? More than 4 [...] Answer Date Recorded PHQ-2 score 6 07/10/2024 [facility] - [...] slept in a alf (including now)? No 06/20/2023 Housing Stability Vital [...] risk 7 08/26/2022 Data from: https://www.neighborhoodatlas.medicine.[facility].edu/. 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 Currently established with a palliative medicine provider. Appointments reviewed to ensure appropriate follow up appointment scheduled. Referral sent to [facility] Palliative Care. If wanting [facility] please let our office know. We can offer VV or inperson at one of our clinic locations. 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) - Chronic pain syndrome G90.1 (ICD-10-CM) - Dysautonomia (HCC) G90.50 (ICD-10-CM) - RSD (reflex sympathetic dystrophy) M35.00 (ICD-10-CM) - Sjogren's syndrome, with unspecified organ involvement (HCC) Maddie Feliz RN August 30, 2024 documented in this encounter Plan of Treatment Upcoming Encounters Date Type Department Care Team (Latest Contact Info) Description 09/24/2024 6:00 PM EDT [address] [address] Basim White MD [address] [place] [address] 3 month follow up 11/28/2024 9:40 AM EDT [facility] Endocrinology [place] [address] [place] [address] [place] [address] [address] Type one diabetes pump and cgm follow up 12/20/2024 4:00 PM EDT [address] [address] Christiana Sims PA-C [address] [place] [address] 6 Month follow up and yearly physical 03/04/2025 5:20 PM EST Office Visit [address] [address] Basim White MD [address] [place] [address] 12 month follow up documented as of this encounter Goals Goal Patient Goal Type Associated Problems Recent Progress Patient-Stated? Author Blood Pressure < 130/80 Blood Pressure 108/64(08/2023 7:48 AM EST) No Shena Coto, JIE Care Coordination - Diabetes Care Coordination Counseling and coordination of care No Chioma Pandey RN Note: Knows type of diabetes. (e.g. [...] Reviewed on date: December 11, 2013 CHIOMA PANDEY, JIE documented as of this encounter Visit Diagnoses Not on filedocumented in this encounter Care Teams Branding Machine Operator Relationship Specialty Start Date End Date Basim [place] MD [address] [place] [address] PCP - General Family Medicine 08/09/17 Nate Joyce DO Historic Sites Supervisor 02/09/13 Paulie Sandra MD [address] [facility] [address] [place] [address] Primary Staff Physician Cardiology 07/04/18 Christiana Sims PA-C [address] [place] [address] Contracting Engineer Family Medicine 03/26/24 documented as of this encounter
--- OUTSIDE RECORDS SUMMARY | 2024-09-09 00:49 | XMS_ITS | Encounter Summary ---
Author Organization [facility] Address [address] [place], [place] [id number] Care Team Providers Care Player Development Manager Name Role Phone Nate Joyce DO Unavailable [phone] Mariam Cruz MD Primary Care Provider Morena Jara RN Unavailable [phone] Basim Cavazos Primary Care Provider Unavailabl e Pcp, No ROD CUP FILLER Primary Care Provider Unavailabl e Anastasia Ruiz DO Primary Care Provider Basim White MD Primary Care Provider [phone] Paulie Sandra MD Unavailable Paulie Sandra MD Unavailable Teagan Henriquez RN Unavailable Pascale Kc ROD CUP FILLER.BLOOD TESTER Unavailable Leeanne Balderas ROD CUP FILLER.BLOOD TESTER Unavailable Juanita Luong PA-C Unavailable Rubi Rodriguez ROD CUP FILLER.BLOOD TESTER Unavailable Christiana Sims PA-C Unavailable Tami Vazquez PA-C Unavailable [phone] Juanita Luong PA-C Unavailable Awa Sanchez PA-C Unavailable Source Comments In the event this information is protected by the Federal Confidentiality of Alcohol and Drug AbusePatient Records regulations: The Federal rules restrict any use of the information to criminally investigate or prosecute any alcohol or drug abuse patient.[facility] Encounter Details Date Type Department Care Team (Late st Contact Info) Description 04/02/2015 Patient Msg Urology [address] [place] [address] Samuel Meyers MD [address] [place] [address] [place] [address] RE: Appointment Cancellation Request Social History Tobacco [...] 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 Not [...] Info) Description 09/24/2024 6:00 PM EDT [address] [address] Basim White MD [address] [place] [address] 3 month follow up 11/28/2024 9:40 AM EDT [facility] Endocrinology [place] [address] [place] [address] [place] [address] [address] Type one diabetes pump and cgm follow up 12/20/2024 4:00 PM EDT [address] [address] Christiana Sims PA-C [address] [place] [address]29 6 Month follow up and yearly physical 03/04/2025 5:20 PM EST Office Visit [address] [address] Basim White MD [address] [place] [address] 22252 12 month follow up documented as of [...] documented as of this encounter Care Teams Player Development Manager Relationship Specialty Start Date End Date Mariam Cruz MD [address] [facility] [place] [address] PCP - General Family Medicine 02/09/13 03/08/16 Basim Cavazos PCP - General 03/09/16 04/14/16 Pcp, No, ROD CUP FILLER PCP - General 04/15/16 06/09/16 [place] [address] [place] [address] PCP - General Family Medicine 06/10/16 08/08/17 Basim White MD 450 [place] [address] PCP - General Family Medicine 08/09/17 Nate Joyce DO City Auditor 02/09/13 Morena Jara, RN 5700 [place] [address] Specialty Surveying Or Spatial Science Technician Endocrinology 06/08/13 04/04/16 Paulie Sandra MD [address] [facility] 110 [place] [phone] Primary Staff Physician Cardiology 07/04/1807/04 Paulie Sandra MD [address] [facility] [address] [place] [phone] Primary Staff Physician Cardiology 07/04/18 Teagan Henriquez, JIE 6000 [place], [place] [id number] Primary Care Textile Screen Printer Internal Medicine 06/22/23 07/21/23 Pascale Kc, ROD CUP FILLER.BLOOD TESTER [address] [place] [address] Wet Mixer Family Medicine 03/26/24 07/04/24 Leeanne Balderas APRN.BLOOD TESTER [address] [place] [address] Wet Mixer Family Medicine 03/26/24 07/04/24 Juanita Luong PA-C [address] [place] [address] Wet Mixer Family Medicine 03/26/24 07/04/24 Rubi Rodriguez APRN.BLOOD TESTER [address] [place] [address] Wet Mixer Family Medicine 03/26/24 07/04/24 Christiana Sims PA-C [address] [place] [address] Wet Mixer Family Medicine 03/26/24 Tami Vazquez PA-C [address] [place] [address] Wet Mixer Family Medicine 06/07/24 07/04/24 Juanita Luong PA-C [address] [place] [address] Wet Mixer Family Medicine 07/11/24 07/25/24 Awa Sanchez PA-C [address] [place] [address] Wet Mixer Internal Medicine 09/03/24 documented as of this encounter
--- OUTSIDE RECORDS SUMMARY | 2024-09-09 00:49 | XMS_ITS | Encounter Summary ---
Author Organization [facility] Address [address] [place], [place] [address] Care Team Providers Care Logistics Supply Officer Name Role Phone Nate Joyce Unavailable [phone] Basim White MD Primary Care Provider Paulie Sandra MD Unavailable Paulie Sandra MD Unavailable [phone] Teagan Henriquez RN Unavailable Pascale Kc SOLAR INSTALLATION MANAGER.STIPPLER Unavailable Leeanne Balderas SOLAR INSTALLATION MANAGER.STIPPLER Unavailable [phone] Juanita Luong PA-C Unavailable Rubi Rodriguez SOLAR INSTALLATION MANAGER.STIPPLER Unavailable Christiana Sims PA-C Unavailable Tami Vazquez PA-C Unavailable [phone] Juanita Luong PA-C Unavailable Awa Sanchez PA-C Unavailable Source Comments In the event this information is protected by the Federal Confidentiality of Alcohol and Drug AbusePatient Records regulations: The Federal rules restrict any use of the information to criminally investigate or prosecute any alcohol or drug abuse patient.[facility] Encounter Details Date Type Department Care Team (Late st Contact Info) Description 04/19/2018 Patient Msg Medical Records [address] [place] [address] Provider, Ccf Refill request aproved Social History Tobacco Use Types Packs/Day Years [...] Industry Job Start Date Job End Date [employer] Not on file Not on file Not [...] Info) Description 09/24/2024 6:00 PM EDT [address] [address] Basim White MD [address] [place] [address] 3 month follow up 11/28/2024 9:40 AM EDT [facility] Endocrinology [place] [address] [place] [phone] [place] [address] [address] Type one diabetes pump and cgm follow up 12/20/2024 4:00 PM EDT [address] [address] Christiana Sims PA-C [address] [place] [address] 6 Month follow up and yearly physical 03/04/2025 5:20 PM EST Office Visit [address] [address] Basim White MD [address] [place] [address] 12 month follow up documented as of [...] documented as of this encounter Care Teams Logistics Supply Officer Relationship Specialty Start Date End Date Basim White MD [address] [place] [address] PCP - General Family Medicine 08/09/17 Nate Joyce DO Leadership Recruiter 02/09/13 Paulie Sandra MD [address] [phone] Primary Staff Physician Cardiology 07/04/1807/04 Paulie Sandra MD [address] [phone] Primary Staff Physician Cardiology 07/04/18 Teagan Henriquez, RN [address] [place] [phone] Primary Care Shift Lab Technician Internal Medicine 06/22/23 07/21/23 Pascale Kc, SOLAR INSTALLATION MANAGER.STIPPLER [address] [place] [address] [facility] Family Medicine 03/26/24 07/04/24 Leeanne Balderas, SOLAR INSTALLATION MANAGER.STIPPLER [address] [place] [address] [facility] Family Medicine 03/26/24 07/04/24 Juanita Luong PA-C [address] [place] [address] [facility] Family Medicine 03/26/24 07/04/24 Ruib Rodriguez, SOLAR INSTALLATION MANAGER.STIPPLER [address] [place] [address] Termite Control Service Representative Family Medicine 03/26/24 07/04/24 Christiana Sims PA-C [address] [place] [address] Termite Control Service Representative Family Medicine 03/26/24 Tami Vazquez PA-C [address] [place] [address] [facility] Family Medicine 06/07/24 07/04/24 Juanita Luong PA-C [address] [place] [address] Termite Control Service Representative Family Medicine 07/11/24 07/25/24 Awa Sanchez PA-C [address] [place] [address] Termite Control Service Representative Internal Medicine 09/03/24 documented as of this encounter
--- OUTSIDE RECORDS SUMMARY | 2024-09-09 00:49 | XMS_ITS | Encounter Summary ---
Author Organization [facility] Address [address] [place], [place] [address] Care Team Providers Care Programmer Numerical Control Name Role Phone Nate Joyce DO Unavailable [phone] Mariam Cruz MD Primary Care Provider [phone] Morena Jara RN Unavailable [phone] Basim Cavazos Primary Care Provider Unavailabl e Pcp, No WARM IN WORKER Primary Care Provider Unavailabl e Anastasia Ruiz DO Primary Care Provider Basim White MD Primary Care Provider [phone] Paulie Sandra MD Unavailable Paulie Sandra MD Unavailable Teagan Henriquez RN Unavailable Pascale Kc WARM IN WORKER.WEIGHT COUNT OPERATOR Unavailable Leeanne Balderas WARM IN WORKER.WEIGHT COUNT OPERATOR Unavailable Juanita Luong PA-C Unavailable Rubi Rodirguez WARM IN WORKER.WEIGHT COUNT OPERATOR Unavailable Christiana Sims PA-C Unavailable Tami Vazquez PA-C Unavailable [phone] Juanita Luong PA-C Unavailable Awa Sanchez PA-C Unavailable Source Comments In the event this information is protected by the Federal Confidentiality of Alcohol and Drug AbusePatient Records regulations: The Federal rules restrict any use of the information to criminally investigate or prosecute any alcohol or drug abuse patient.[facility] Encounter Details Date Type Department Care Team (Late st Contact Info) Description 03/21/2015 Get Medical Advice Endocrinology 5700 [place] [address] [place] [address] [place] [address] Visit Follow Up Question Social History Tobacco [...] Industry Job Start Date Job End Date [employer] Not on file Not on file Not [...] Assessment Author No 09/02/2014 1:42 PM EDT Lyn Selina aponte Dori * Because of a physical, [...] Contact Info) Description 09/24/2024 6:00 PM EDT [address] [address] Basim White MD [address] [place] [address] 3 month follow up 11/28/2024 9:40 AM EDT [facility] Endocrinology [place] [address] [place] [address] [place] [address] [address] Type one diabetes pump and cgm follow up 12/20/2024 4:00 PM EDT [address] [address] Christiana Sims PA-C [address] [place] [address] 6 Month follow up and yearly physical 03/04/2025 5:20 PM EST Office Visit [address] [address] Basim White MD [address] [place] [address] 12 month follow up documented as of [...] documented as of this encounter Care Teams Programmer Numerical Control Relationship Specialty Start Date End Date Mariam Cruz MD [address] [place] [id number] PCP - General Family Medicine 02/09/13 03/08/16 Basim Cavazos PCP - General 03/09/16 04/14/16 Pcp, No, WARM IN WORKER PCP - General 04/15/16 06/09/16 [place] [address] [place] [address] PCP - General Family Medicine 06/10/16 08/08/17 Basim White MD 450 [place] [address] PCP - General Family Medicine 08/09/17 Nate Joyce DO Auto Mechanic 02/09/13 Morena Jara, RN [address]00 [place] [address] Specialty Wafer Fabrication Technician Endocrinology 06/08/13 04/04/16 Paulie Sandra MD [address] [facility] 110 [place] [phone] Primary Staff Physician Cardiology 07/04/1807/04 Paulie Sandra MD [address] [facility] 110 [place] [phone] Primary Staff Physician Cardiology 07/04/18 Teagan Henriquez, RN 6000 [place], [place] [address] Primary Care Matcher Internal Medicine 06/22/23 07/21/23 Pascale Kc, WARM IN WORKER.WEIGHT COUNT OPERATOR [address] [place] [address] Biofuels Operations Manager Family Medicine 03/26/24 07/04/24 Leeanne Balderas APRN.WEIGHT COUNT OPERATOR [address] [place] [address] Biofuels Operations Manager Family Medicine 03/26/24 07/04/24 Juanita Luong PA-C [address] [place] [address] Biofuels Operations Manager Family Medicine 03/26/24 07/04/24 Rubi Rodriguez APRN.CNP [address] [place] [address] Biofuels Operations Manager Family Medicine 03/26/24 07/04/24 Christiana Sims PA-C [address] [place] [address] [facility] Family Medicine 03/26/24 Tami Vazquez PA-C [address] [place] [address] Biofuels Operations Manager Family Medicine 06/07/24 07/04/24 Juanita Luong PA-C [address] [place] [address] [facility] Family Medicine 07/11/24 07/25/24 Awa Sanchez PA-C [address] [place] [address] [facility] Internal Medicine 09/03/24 documented as of this encounter
--- OUTSIDE RECORDS SUMMARY | 2024-09-09 00:49 | XMS_ITS | Encounter Summary ---
Author Organization [facility] Address [address] [place], [place] [address] Care Team Providers Care Floor Refinisher Name Role Phone IsiahNate greenfield Cecelia OSBORNE Unavailable [phone] Basim White MD Primary Care Provider [phone] Paulie Sandra MD Unavailable Teagan Henriquez RN Unavailable aPscale Kc VICE PRESIDENT.ANIMAL BEHAVIORIST Unavailable Leeanne Balderas VICE PRESIDENT.ANIMAL BEHAVIORIST Unavailable [phone] Juanita Luong PA-C Unavailable Rubi Rodriguez VICE PRESIDENT.ANIMAL BEHAVIORIST Unavailable Christiana Sims PA-C Unavailable Tami Vazquez PA-C Unavailable [phone] Juanita Luong PA-C Unavailable Awa Sanchez PA-C Unavailable Source Comments In the event this information is protected by the Federal Confidentiality of Alcohol and Drug AbusePatient Records regulations: The Federal rules restrict any use of the information to criminally investigate or prosecute any alcohol or drug abuse patient.[facility] Encounter Details Date Type Department Care Team (Late st Contact Info) Description 10/26/2022 Get Medical Advice Otolaryngology [address] [facility] [address] [place], [place] [id number] Renetta Dhillon R, VICE PRESIDENT.ANIMAL BEHAVIORIST [address] [address] [place] Social History Tobacco Use Types Packs/Day Years [...] Never 05/03/2022 How often do you attend faith or methodist serv ices? Never 05/03/2022 Do you belong [...] Answer Date Recorded PHQ-2 score 6 04/23/2022 [place] of Occupat ional Health - Occupational Stress [...] lower risk 7 08/26/2022 Data from: https://www.neighborhoodatlas.medicine.[facility].edu/. 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 [place] [address] [place] [address] [place] [address] [facility] [address] [place] [address] Type one diabetes pump and cgm follow up 12/20/2024 4:00 PM EDT [facility] 450 [place] [address] Christiana Sims PA-C 450 [place] [address] 6 Month follow up and yearly physical 03/04/2025 5:20 PM EST Office Visit [facility] 450 [place] [address] Basim White MD [address] [place] [address] 12 month follow up documented as of [...] on filedocumented in this encounter Care Teams Floor Refinisher Relationship Specialty Start Date End Date Basim White MD [address] [place] [address] PCP - General Family Medicine 08/09/17 Nate Joyce DO Fountain Server 02/09/13 Paulie Sandra MD [address] [address] Primary Staff Physician Cardiology 07/04/18 Teagan Henriquez, JIE 6000 [place] [address] Primary Care Laboratory Chemist Internal Medicine 06/22/23 07/21/23 Pascale Kc APRN.ANIMAL BEHAVIORIST [address] [place] [address] Antique Furniture Reproducer Family Medicine 03/26/24 07/04/24 Leeanne Balderas, ISABELLA.ANIMAL BEHAVIORIST [address] [place] [address] Antique Furniture Reproducer Family Medicine 03/26/24 07/04/24 Juanita Luong PA-C [address] [place] [address] Antique Furniture Reproducer Family Medicine 03/26/24 07/04/24 Rubi Rodriguez, ISABELLA.ANIMAL BEHAVIORIST [address] [place] [address] Antique Furniture Reproducer Family Medicine 03/26/24 07/04/24 Christiana Sims PA-C [address] [place] [address] Antique Furniture Reproducer Family Medicine 03/26/24 Tami Vazquez PA-C [address] [place] [address] Antique Furniture Reproducer Family Medicine 06/07/24 07/04/24 Juanita Luong PA-C [address] [place] [address] Antique Furniture Reproducer Family Medicine 07/11/24 07/25/24 Awa Sanchez PA-C [address] [place] [address] Antique Furniture Reproducer Internal Medicine 09/03/24 documented as of this encounter
--- OUTSIDE RECORDS SUMMARY | 2024-09-09 00:49 | XMS_ITS | Encounter Summary ---
Author Organization [facility] Address [address] [place], [place] [address] Care Team Providers Care Supervisor Photocomposition Name Role Phone Nate Joyce Unavailable [phone] Basim White MD Primary Care Provider Paulie Sandra MD Unavailable Paulie Sandra MD Unavailable Teagan Henriquez RN Unavailable Pascale Kc REGULATORY AFFAIRS MANAGER.UPPER SHAPER Unavailable Leeanne Balderas REGULATORY AFFAIRS MANAGER.UPPER SHAPER Unavailable [phone] Juanita Luong PA-C Unavailable Rubi Rodriguez REGULATORY AFFAIRS MANAGER.UPPER SHAPER Unavailable Christiana Sims PA-C Unavailable Tami Vazquez PA-C Unavailable [phone] Juanita Luong PA-C Unavailable Awa Sanchez PA-C Unavailable Source Comments In the event this information is protected by the Federal Confidentiality of Alcohol and Drug AbusePatient Records regulations: The Federal rules restrict any use of the information to criminally investigate or prosecute any alcohol or drug abuse patient.[facility] Encounter Details Date Type Department Care Team (Late st Contact Info) Description 07/30/2018 Get Medical Advice Family Medicine [place] [address] [place] [address] Basim White MD 450 [place], [place] [phone] RE: Visit Follow Up Question Social History [...] 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 [...] Contact Info) Description 09/24/2024 6:00 PM EDT [address] [address] Basim White MD [address] [place] [address] 3 month follow up 11/28/2024 9:40 AM EDT [facility] Endocrinology [place] [address] [place] [address] [place] [address] [address] Type one diabetes pump and cgm follow up 12/20/2024 4:00 PM EDT [address] [address] Christiana Sims PA-C [address] [place] [address] 6 Month follow up and yearly physical 03/04/2025 5:20 PM EST Office Visit [address] [address] Basim White MD [address] [place] [address] 12 month follow up documented as of [...] as of this encounter Care Teams Supervisor Photocomposition Relationship Specialty Start Date End Date Basim White MD 450 [place] [address] PCP - General Family Medicine 08/09/17 Nate Joyce DO Vb Net Programmer 02/09/13 Paulie Sandra MD [address] [phone] Primary Staff Physician Cardiology 07/04/1807/04 Paulie Sandra MD [address] [address] Primary Staff Physician Cardiology 07/04/18 Teagan Henriquez, RN [address] [place] [address] Primary Care Firer Retort Internal Medicine 06/22/23 07/21/23 Pascale Kc, REGULATORY AFFAIRS MANAGER.UPPER SHAPER [address] [place] [address] Chief Engineer Family Medicine 03/26/24 07/04/24 Leeanne Balderas, REGULATORY AFFAIRS MANAGER.UPPER SHAPER [address] [place] [address] Chief Engineer Family Medicine 03/26/24 07/04/24 Juanita Luong PA-C [address] [place] [address] Chief Engineer Family Medicine 03/26/24 07/04/24 Rubi Rodriguez, REGULATORY AFFAIRS MANAGER.UPPER SHAPER [address] [place] [address] Chief Engineer Family Medicine 03/26/24 07/04/24 Christiana Sims PA-C [address] [place] [address] Chief Engineer Family Medicine 03/26/24 Tami Vazquez PA-C [address] [place] [address] Chief Engineer Family Medicine 06/07/24 07/04/24 Juanita Luong PA-C [address] [place] [address] Chief Engineer Family Medicine 07/11/24 07/25/24 Awa Sanchez PA-C [facility] [place], [place] [address] Chief Engineer Internal Medicine 09/03/24 documented as of this encounter
--- OUTSIDE RECORDS SUMMARY | 2024-09-09 00:49 | XMS_ITS | Encounter Summary ---
Author Organization [facility] Address [address] [place], [place] [id number] Care Team Providers Care Hydrotherapist Name Role Phone Nate Joyce Unavailable [phone] Basim White MD Primary Care Provider Paulie Sandra MD Unavailable [phone] Paulie Sandra MD Unavailable Teagan Henriquez RN Unavailable Pascale Kc GYM MANAGER.INTELLECTUAL PROPERTY COUNSEL Unavailable Leeanne Balderas GYM MANAGER.INTELLECTUAL PROPERTY COUNSEL Unavailable [phone] Juanita Luong PA-C Unavailable Rubi Rodriguez GYM MANAGER.INTELLECTUAL PROPERTY COUNSEL Unavailable Christiana Sims PA-C Unavailable Tami Vazquez PA-C Unavailable [phone] Juanita Luong PA-C Unavailable Awa Sanchez PA-C Unavailable Source Comments In the event this information is protected by the Federal Confidentiality of Alcohol and Drug AbusePatient Records regulations: The Federal rules restrict any use of the information to criminally investigate or prosecute any alcohol or drug abuse patient.[facility] Encounter Details Date Type Department Care Team (Late st Contact Info) Description 06/29/2018 Get Medical Advice Endocrinology [address] [place] [address] [place] [address] [place] [address] RE: RE: Medication Question (Not Renewal) Social History [...] 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 on file Not [...] encounter Miscellaneous Notes * Telephone Encounter - Gladis Van (Rn), RN - 06/30/2018 3:17 PM EDT Called and talked with Annetta from [facility] have all active orders from us Patient needs to call them to place order Will communicate through [employer] documented in this encounter Plan of Treatment Upcoming Encounters Date Type Department Care Team (Latest Contact Info) Description 09/24/2024 6:00 PM EDT [address] [address] Basim White MD [address] [place] [address] 3 month follow up 11/28/2024 9:40 AM EDT [facility] Endocrinology [place] [address] [place] [address] [place] [address] [facility] [address] [place] [address] Type one diabetes pump and cgm follow up 12/20/2024 4:00 PM EDT [address] [address] Christiana Sims PA-C [address] [place] [address] 6 Month follow up and yearly physical 03/04/2025 5:20 PM EST Office Visit [address] [address] Basim White MD [address] [place] [address] 12 month follow up documented as of [...] documented as of this encounter Care Teams Hydrotherapist Relationship Specialty Start Date End Date Basim White MD [address] [place] [address] PCP - General Family Medicine 4/24/18 Nate Joyce DO Investment Analyst 02/09/13 Paulie Sandra MD [address] [facility] [address] [place] [phone] Primary Staff Physician Cardiology 07/04/1807/04 Paulie Sandra MD [address] [facility] [address] [place] [address] Primary Staff Physician Cardiology 07/04/18 Teagan Henriquez, JIE [address] [place] [id number] Primary Care Armhole Baster Hand Internal Medicine 06/22/23 07/21/23 Pascale Kc, GYM MANAGER.INTELLECTUAL PROPERTY COUNSEL [address] [place] [address] Metallurgical Laboratory Assistant Family [facility] 03/26/24 07/04/24 Leeanne Balderas, GYM MANAGER.INTELLECTUAL PROPERTY COUNSEL [address] [place] [address] Metallurgical Laboratory Assistant Family Medicine 03/26/24 07/04/24 Juanita Luong PA-C [address] [place] [address] Metallurgical Laboratory Assistant Family Medicine 03/26/24 07/04/24 Rubi Rodriguez, GYM MANAGER.INTELLECTUAL PROPERTY COUNSEL [address] [place] [address] Metallurgical Laboratory Assistant Family [facility] 03/26/24 07/04/24 Christiana Sims PA-C [address] [place] [address] Metallurgical Laboratory Assistant Family Medicine 03/26/24 Tami Vazquez PA-C [address] [place] [address] Metallurgical Laboratory Assistant Family Medicine 06/07/24 07/04/24 Juanita Luong PA-C [address] [place] [address] Metallurgical Laboratory Assistant Family Medicine 07/11/24 07/25/24 Awa Sanchez PA-C [address] [place] [address] Metallurgical Laboratory Assistant Internal Medicine 09/03/24 documented as of this encounter
--- OUTSIDE RECORDS SUMMARY | 2024-09-09 00:49 | XMS_ITS | Encounter Summary ---
Author Organization [facility] Address [address] [place], [place] [address] Care Team Providers Care Manager Fitness Name Role Phone Nate Joyce DO Unavailable [phone] Mariam Cruz MD Primary Care Provider Morena Jara RN Unavailable [phone] Basim Cavazos Primary Care Provider Unavailabl e Pcp, No BRANCHER Primary Care Provider Unavailabl e Anastasia Ruiz DO Primary Care Provider Basim White MD Primary Care Provider [phone] Paulie Sandra MD Unavailable Paulie Sandra MD Unavailable Teagan Henriquez RN Unavailable Pascale Kc BRANCHER.SERVICE ENGINE REPAIRER Unavailable Leeanne Balderas BRANCHER.SERVICE ENGINE REPAIRER Unavailable Juanita Luong PA-C Unavailable Rubi Rodriguez BRANCHER.SERVICE ENGINE REPAIRER Unavailable Christiana Sims PA-C Unavailable Tami Vazquez PA-C Unavailable [phone] Juanita Luong PA-C Unavailable Awa Sanchez PA-C Unavailable Source Comments In the event this information is protected by the Federal Confidentiality of Alcohol and Drug AbusePatient Records regulations: The Federal rules restrict any use of the information to criminally investigate or prosecute any alcohol or drug abuse patient.[facility] Encounter Details Date Type Department Care Team (Late st Contact Info) Description 02/11/2015 Patient Msg Medical Records [address] [place] [address] Provider, Ccf EEG results Social History Tobacco Use Types Packs/Day [...] 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 [...] Info) Description 09/24/2024 6:[address] PM EDT [address] [address] Basim White MD [address] [place] [address] 3 month follow up 11/28/2024 9:40 AM EDT [facility] Endocrinology [place] [address] [place] [address] [place] [address] [address] Type one diabetes pump and cgm follow up 12/20/2024 4:[address] PM EDT [address] [address] Christiana Sims PA-C [address] [place] [address] 6 Month follow up and yearly physical 03/04/2025 5:20 PM EST Office Visit [address] [address] Basim White MD [address] [place] [address] 12 month follow up documented as of [...] documented as of this encounter Care Teams Manager Fitness Relationship Specialty Start Date End Date Mariam Cruz MD [address] [place] [address] PCP - General Family Medicine 02/09/13 03/08/16 Basim Cavazos PCP - General 03/09/16 04/14/16 Pcp, Karmen, ISABELLA PCP - General 04/15/16 06/09/16 [place] [address] [place] [address] PCP - General Family Medicine 06/10/16 08/08/17 Basim White MD [address] [place] [address] PCP - General Family Medicine 08/09/17 Nate Joyce DO Lineman Service Or Work Dispatcher 02/09/13 Morena Jara, RN [address]00 [place] [address] Specialty Utility Worker Film Processing Endocrinology 06/08/13 04/04/16 Paulie Sandra MD [address] [facility] [address] [place] [phone] Primary Staff Physician Cardiology 07/04/1807/04 Paulie Sandra MD [address] [facility] [address] [place] [address] Primary Staff Physician Cardiology 07/04/18 Teagan Henriquez, JIE 6000 [place] [address] Primary Care Life Skills Educator Internal Medicine 06/22/23 07/21/23 Pascale Kc, BRANCHER.SERVICE ENGINE REPAIRER [address] [place] [address] Station Mechanic Family Medicine 03/26/24 07/04/24 Leeanne Balderas, BRANCHER.SERVICE ENGINE REPAIRER [address] [place] [address] Station Mechanic Family Medicine 03/26/24 07/04/24 Juanita Luong PA-C [address] [place] [address] Station Mechanic Family Medicine 03/26/24 07/04/24 Rubi Rodriguez APRN.[facility] [address] [place] [address] Station Mechanic Family Medicine 03/26/24 07/04/24 Christiana Sims PA-C [address] [place] [address] Station Mechanic Family Medicine 03/26/24 Tami Vazquez PA-C [address] [place] [address] Station Mechanic Family Medicine 06/07/24 07/04/24 Juanita Luong PA-C [address] [place] [address] Station Mechanic Family Medicine 07/11/24 07/25/24 Awa Sanchez PA-C [address] [place] [address] Station Mechanic Internal Medicine 09/03/24 documented as of this encounter
--- OUTSIDE RECORDS SUMMARY | 2024-09-09 00:49 | XMS_ITS | Encounter Summary ---
Author Organization [facility] Address [address] [place], [place] [id number] Care Team Providers Care Tucking Machine Operator Name Role Phone Nate Joyce DO Unavailable [phone] Mariam Cruz MD Primary Care Provider Morena Jara RN Unavailable [phone] Basim Cavazos Primary Care Provider Unavailabl e Pcp, No CERTIFICATION AND SELECTION SPECIALIST Primary Care Provider Unavailabl e Anastasia Ruiz DO Primary Care Provider Basim White MD Primary Care Provider [phone] Paulie Sandra MD Unavailable Paulie Sandra MD Unavailable Teagan Henriquez RN Unavailable Pascale Kc CERTIFICATION AND SELECTION SPECIALIST.PATTERN SHOP SUPERVISOR Unavailable Leeanne Balderas CERTIFICATION AND SELECTION SPECIALIST.PATTERN SHOP SUPERVISOR Unavailable Juanita Luong PA-C Unavailable Rubi Rodriguez CERTIFICATION AND SELECTION SPECIALIST.PATTERN SHOP SUPERVISOR Unavailable Christiana Sims PA-C Unavailable Tami Vazquez PA-C Unavailable Juanita Luong PA-C Unavailable Awa Sanchez PA-C Unavailable Source Comments In the event this information is protected by the Federal Confidentiality of Alcohol and Drug AbusePatient Records regulations: The Federal rules restrict any use of the information to criminally investigate or prosecute any alcohol or drug abuse patient.[facility] Encounter Details Date Type Department Care Team (Late st Contact Info) Description 10/07/2015 Patient Msg Obstetrics/Gynecolog y [address] [facility] [address] [place] [address] [place] [address] 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 Endocrinology [place] [address] [place] [address] [place] [address] [address] Type one diabetes pump and cgm follow up 12/20/2024 4:00 PM EDT [address] [address] Christiana Sims PA-C [address] [place] [address] 6 Month follow up and yearly physical 03/04/2025 5:20 PM EST Office Visit [address] [address] Basim White MD [address] [place] [address] 12 month follow up documented as of [...] documented as of this encounter Care Teams Tucking Machine Operator Relationship Specialty Start Date End Date Mariam Cruz MD [address] [facility] [place] [address] PCP - General Family Medicine 02/09/13 03/08/16 Basim Cavazos PCP - General 03/09/16 04/14/16 Karmen Bass, CERTIFICATION AND SELECTION SPECIALIST PCP - General 04/15/16 06/09/16 [place] [address] [place] [address] PCP - General Family Medicine 06/10/16 08/08/17 Basim White MD [address] [place] [address] PCP - General Family Medicine 08/09/17 Nate Joyce DO Rn Long Term Care 02/09/13 Morena Jara, RN 5700 [place] [address] Specialty Instrument Repairer Endocrinology 06/08/13 04/04/16 Paulie Sandra MD [address] [facility] [address] [place] [address] Primary Staff Physician Cardiology 07/04/1807/04 Paulie Sandra MD [address] [facility] [address] [place] [address] Primary Staff Physician Cardiology 07/04/18 Teagan Henriquez, JIE 6000 [place], [place] [address] Primary Care Cooker Tender Internal Medicine 06/22/23 07/21/23 Pascale Kc, CERTIFICATION AND SELECTION SPECIALIST.PATTERN SHOP SUPERVISOR [address] [place] [address] Senior Master Scheduler Family Medicine 03/26/24 07/04/24 Leeanne Balderas APRN.PATTERN SHOP SUPERVISOR [address] [place] [address] Senior Master Scheduler Family Medicine 03/26/24 07/04/24 Juanita Luong PA-C [address] [place] [address] Senior Master Scheduler Family Medicine 03/26/24 07/04/24 Rubi Rodriguez APRN.PATTERN SHOP SUPERVISOR [address] [place] [address] Senior Master Scheduler Family Medicine 03/26/24 07/04/24 Christiana Sims PA-C [address] [place] [address] Senior Master Scheduler Family Medicine 03/26/24 Tami Vazquez PA-C [address] [place] [address] Senior Master Scheduler Family Medicine 06/07/24 07/04/24 Juanita Luong PA-C [address] [place] [address] Senior Master Scheduler Family Medicine 07/11/24 07/25/24 Awa Sanchez PA-C [address] [place] [address] Senior Master Scheduler Internal Medicine 09/03/24 documented as of this encounter
--- OUTSIDE RECORDS SUMMARY | 2024-09-09 00:49 | XMS_ITS | Encounter Summary ---
Author Organization [facility] Address [address] [place], [place] [address] Care Team Providers Care Rabbet Operator Name Role Phone Nate Joyce Unavailable [phone] Basim White MD Primary Care Provider Paulie Sandra MD Unavailable [phone] Paulie Sandra MD Unavailable [phone] Teagan Henriquez RN Unavailable Pascale Kc TUCKING MACHINE OPERATOR.PAIN MEDICINE PHYSICIAN Unavailable Leeanne Balderas TUCKING MACHINE OPERATOR.PAIN MEDICINE PHYSICIAN Unavailable [phone] Juanita Luong PA-C Unavailable Rubi Rodriguez TUCKING MACHINE OPERATOR.PAIN MEDICINE PHYSICIAN Unavailable Christiana Sims PA-C Unavailable Tami Vazquez PA-C Unavailable Juanita Luong PA-C Unavailable Awa Sanchez PA-C Unavailable Source Comments In the event this information is protected by the Federal Confidentiality of Alcohol and Drug AbusePatient Records regulations: The Federal rules restrict any use of the information to criminally investigate or prosecute any alcohol or drug abuse patient.[facility] Encounter Details Date Type Department Care Team (Late st Contact Info) Description 05/09/2018 Get Medical Advice Endocrinology [address] [place] [address] [place] [address] [place] [address] RE: Visit Follow Up Question Social History [...] 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 * Telephone Encounter - Kirstie Duron) - 05/11/2018 9:01 AM EST Reports printed and placed in Dr. Ahn's inbox. documented in this encounter Plan of Treatment Upcoming Encounters Date Type Department Care Team (Latest Contact Info) Description 09/24/2024 6:00 PM EDT [facility] [address] [place] [address] Basim White MD [address] [place] [address] 3 month follow up 11/28/2024 9:40 AM EDT [facility] Endocrinology [place] [address] [place] [address] [place] [address] [address] Type one diabetes pump and cgm follow up 12/20/2024 4:00 PM EDT [facility] [address] [place] [address] Christiana Sims PA-C [address] [place] [address] 6 Month follow up and yearly physical 03/04/2025 5:20 PM EST Office Visit Family Medicine [place] [address] [place], [place] [address] Basim White MD [address] [place] [address] 12 month follow up documented as of [...] documented as of this encounter Care Teams Rabbet Operator Relationship Specialty Start Date End Date Basim White MD [address] [place] [id number] PCP - General Family Medicine 08/09/17 Nate Joyce DO Candy Counter Clerk 02/09/13 Paulie Sandra MD [address] [facility] 110 [place] [address] Primary Staff Physician Cardiology 07/04/1807/04 Paulie Sandra MD [address] [facility] [address] [place] [address] Primary Staff Physician Cardiology 07/04/18 Teagan Henriquez, JIE [address] [place] [address] Primary Care Equipment Validation Specialist Internal Medicine 06/22/23 07/21/23 Pascale Kc TUCKING MACHINE OPERATOR.PAIN MEDICINE PHYSICIAN [address] [place] [address] Director Of Medical Staff Services Family Medicine 03/26/24 07/04/24 Leeanne Balderas, TUCKING MACHINE OPERATOR.PAIN MEDICINE PHYSICIAN [address] [place] [address] Director Of Medical Staff Services Family Medicine 03/26/24 07/04/24 Juanita Luong PA-C [address] [place] [address] Director Of Medical Staff Services Family Medicine 03/26/24 07/04/24 Rubi Rodriguez, TUCKING MACHINE OPERATOR.PAIN MEDICINE PHYSICIAN [address] [place] [address] Director Of Medical Staff Services Family Medicine 03/26/24 07/04/24 Christiana Sims PA-C [address] [place] [address] Director Of Medical Staff Services Family Medicine 03/26/24 Tami Vazquez PA-C [address] [place] [address] Director Of Medical Staff Services Family Medicine 06/07/24 07/04/24 Juanita Luong PA-C [address] [place] [address] Director Of Medical Staff Services Family Medicine 07/11/24 07/25/24 Awa Sanchez PA-C [address] [place] [address] Director Of Medical Staff Services Internal Medicine 09/03/24 documented as of this encounter
--- OUTSIDE RECORDS SUMMARY | 2024-09-09 00:49 | XMS_ITS | Encounter Summary ---
Author Organization [facility] Address [address] [place], [place] [id number] Care Team Providers Care Military Science Teacher Name Role Phone IsiahNate greenfield Cecelia OSBORNE Unavailable [phone] Basim White MD Primary Care Provider Paulie Sandra MD Unavailable Teagan Henriquez RN Unavailable Pascale Kc OXYGEN EQUIPMENT AIDE.HIGH PRESSURE CLEANER Unavailable Leeanne Balderas OXYGEN EQUIPMENT AIDE.HIGH PRESSURE CLEANER Unavailable [phone] Juanita Luong PA-C Unavailable Rubi Rodriguez OXYGEN EQUIPMENT AIDE.HIGH PRESSURE CLEANER Unavailable Christiana Sims PA-C Unavailable Tami Vazquez PA-C Unavailable [phone] Juanita Luong PA-C Unavailable Awa Sanchez PA-C Unavailable Source Comments In the event this information is protected by the Federal Confidentiality of Alcohol and Drug AbusePatient Records regulations: The Federal rules restrict any use of the information to criminally investigate or prosecute any alcohol or drug abuse patient.[facility] Encounter Details Date Type Department Care Team (Kathryn saini Contact Info) Description 10/28/2022 Patient Msg Nuclear Medicine [address] [address] Provider, Ccf Instructions for NM Stress testing on 11/01/22 at 12:30 pm Social History Tobacco Use Types Packs/Day Years [...] Never 05/03/2022 How often do you attend hinduism or sabianist serv ices? Never 05/03/2022 Do you belong to any clubs o r organizations such as hinduism groups, unions, fraternal or athletic groups, or [...] Answer Date Recorded PHQ-2 score 6 04/23/2022 [facility] of Occupat ional Health - Occupational Stress [...] lower risk 7 08/26/2022 Data from: https://www.neighborhoodatlas.medicine.[facility].edu/. 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 [...] Description 09/24/2024 6:00 PM EDT [facility] Family Medicine [place] [address] [place] [address] Basim White MD 450 [place] [address] 3 month follow up 11/28/2024 9:40 AM EDT [facility] Endocrinology [place] [address] [place] [address] [place] [address] [facility] [address] [place] [address] Type one diabetes pump and cgm follow up 12/20/2024 4:00 PM EDT [facility] [address] [place] [address] Christiana Sims PA-C 450 [place] [address] 6 Month follow up and yearly physical 03/04/2025 5:20 PM EST Office Visit [facility] [address] [place] [address] Basim White MD [address] [place] [address] 12 month follow up documented as of [...] on filedocumented in this encounter Care Teams Military Science Teacher Relationship Specialty Start Date End Date Basim White MD [address] [place] [address] PCP - General Family Medicine 08/09/17 Nate Joyce DO Pipe Foreman 02/09/13 Paulie Sandra MD [address] [phone] Primary Staff Physician Cardiology 07/04/18 Teagan Henriquez, JIE [address] [place] [address] Primary Care Computerized Mill Recorder Internal Medicine 06/22/23 07/21/23 Pascale Kc, OXYGEN EQUIPMENT AIDE.HIGH PRESSURE CLEANER [address] [place] [address] [facility] Family Medicine 03/26/24 07/04/24 Leeanne Balderas, OXYGEN EQUIPMENT AIDE.HIGH PRESSURE CLEANER [address] [place] [address] Gas Or Petroleum Operator Family Medicine 03/26/24 07/04/24 Juanita Luong PA-C [address] [place] [address] [facility] Family Medicine 03/26/24 07/04/24 Rubi Rodriguez, OXYGEN EQUIPMENT AIDE.HIGH PRESSURE CLEANER [address] [place] [address] Gas Or Petroleum Operator Family Medicine 03/26/24 07/04/24 Christiana Sims PA-C [address] [place] [address] Gas Or Petroleum Operator Family Medicine 03/26/24 Tami Vazquez PA-C [address] [place] [address] Gas Or Petroleum Operator Family Medicine 06/07/24 07/04/24 Juanita Luong PA-C [address] [place] [address] Gas Or Petroleum Operator Family Medicine 07/11/24 07/25/24 Awa Sanchez PA-C [address] [place] [address] Gas Or Petroleum Operator Internal Medicine 09/03/24 documented as of this encounter
--- OUTSIDE RECORDS SUMMARY | 2024-09-09 00:49 | XMS_ITS | Encounter Summary ---
Author Organization [facility] Address [address] [place], [place] [address] Care Team Providers Care Seal Delivery Vehicle Officer Name Role Phone Nate Joyce DO Unavailable [phone] Mariam Cruz MD Primary Care Provider Morena Jara RN Unavailable [phone] Basim Cavazos Primary Care Provider Unavailabl e Pcp, No SKULL SPLITTER Primary Care Provider Unavailabl e Anastasia Ruiz DO Primary Care Provider Basim White MD Primary Care Provider [phone] Paulie Sandra MD Unavailable Paulie Sandra MD Unavailable Teagan Henriquez RN Unavailable Pascale Kc SKULL SPLITTER.REAL ESTATE BROKER Unavailable Leeanne Balderas SKULL SPLITTER.REAL ESTATE BROKER Unavailable Juanita Luong PA-C Unavailable Rubi Rodriguez SKULL SPLITTER.REAL ESTATE BROKER Unavailable Christiana Sims PA-C Unavailable [...] Care Team (Late st Contact Info) Description 01/15/2015 Patient Msg Medical Records [address] [place] [address] Provider, Ccf Lab orders Social History Tobacco Use Types Packs/Day Years [...] Industry Job Start Date Job End Date [employer] Not on file Not on file [...] Info) Description 09/24/2024 6:00 PM EDT [address] [address] Basim White MD [address] [place] [address] 3 month follow up 11/28/2024 9:40 AM EDT [facility] [place] [address] [place] [address] [place] [address] [address] Type one diabetes pump and cgm follow up 12/20/2024 4:00 PM EDT [address] [address] Christiana Sims PA-C [address] [place] [address] 6 Month follow up and yearly physical 03/04/2025 5:20 PM EST Office Visit [address] [address] Basim White MD [address] [place] [address] 12 month follow up documented as of [...] documented as of this encounter Care Teams Seal Delivery Vehicle Officer Relationship Specialty Start Date End Date Mariam Cruz MD [address] [place] [address] PCP - General Family Medicine 02/09/13 03/08/16 Basim Cavazos PCP - General 03/09/16 04/14/16 Pcp, Karmen, ISABELLA PCP - General 04/15/16 06/09/16 [place] [address] [place] [address] PCP - General Family Medicine 06/10/16 08/08/17 Basim White MD [address] [place] [address] PCP - General Family Medicine 08/09/17 Nate Joyce DO Vehicle Body Maker 02/09/13 Morena Jara, RN 5700 [place] [address] Specialty Director Physical Therapy Endocrinology 06/08/13 04/04/16 Paulie Sandra MD [address] [facility] [address] [place] [phone] Primary Staff Physician Cardiology 07/04/1807/04 Paulie Sandra MD [address] [facility] [address] [place] [phone] Primary Staff Physician Cardiology 07/04/18 Teagan Henriquez, JIE [address]000 [place] [address] Primary Care Hydroelectric Station Operator Chief Internal Medicine 06/22/23 07/21/23 Pascale Kc, SKULL SPLITTER.REAL ESTATE BROKER [address] [place] [address] Textile Clothing And Footwear Mechanic Family Medicine 03/26/24 07/04/24 Leeanne Balderas, SKULL SPLITTER.REAL ESTATE BROKER [address] [place] [address] Textile Clothing And Footwear Mechanic Family Medicine 03/26/24 07/04/24 Juanita Luong PA-C [address] [place] [address] Textile Clothing And Footwear Mechanic Family Medicine 03/26/24 07/04/24 Rubi Rodriguez APRN.[facility] [address] [place] [address] Textile Clothing And Footwear Mechanic Family Medicine 03/26/24 07/04/24 Christiana iSms PA-C [address] [place] [address] [employer] Footwear Mechanic Family Medicine 03/26/24 Tami Vazquez PA-C [address] [place] [address] Textile Clothing And Footwear Mechanic Family Medicine 06/07/24 07/04/24 Juanita Luong PA-C [address] [place] [address] Textile Clothing And Footwear Mechanic Family Medicine 07/11/24 07/25/24 Awa Sanchez PA-C [address] [place] [address] Textile Clothing And Footwear Mechanic Internal Medicine 09/03/24 documented as of this encounter
--- OUTSIDE RECORDS SUMMARY | 2024-09-09 00:49 | XMS_ITS | Encounter Summary ---
Author Organization [facility] Address [address] [place], [place] [address] Care Team Providers Care Regional Office Coordinator Name Role Phone Nate Joyce DO Unavailable [phone] Mariam Cruz MD Primary Care Provider Morena Jara RN Unavailable [phone] Basim Cavazos Primary Care Provider Unavailabl e Pcp, No CUSTOMER ORDER CLERK Primary Care Provider Unavailabl e Anastasia Ruiz DO Primary Care Provider Basim White MD Primary Care Provider [phone] Paulie Sandra MD Unavailable Paulie Sandra MD Unavailable Teagan Henriquez RN Unavailable [employer] K[employer] CUSTOMER ORDER CLERK.HEATING UNIT MECHANIC Unavailable Leeanne Balderas CUSTOMER ORDER CLERK.HEATING UNIT MECHANIC Unavailable Juanita Luong PA-C Unavailable Rubi Rodriguez CUSTOMER ORDER CLERK.HEATING UNIT MECHANIC Unavailable Christiana Sims PA-C Unavailable Tami Vazquez PA-C Unavailable [phone] Juanita Luong PA-C Unavailable Awa Sanchez [...] Care Team (Late st Contact Info) Description 07/15/2015 Get Medical Advice Endocrinology [address] [place] [address] [place] [address] [place], [place] [address] RE: Visit Follow Up Question Social History [...] Industry Job Start Date Job End Date [employer] Not on file Not on file Not [...] No 09/02/2014 1:42 PM EDT Eboni Marks fadiDori * Because of a physical, mental, or [...] EDT Dori Llamas documented in this encounter Miscellaneous Notes * Telephone Encounter - Shilpa Westbrook Ma, MA - 08/12/2015 10:55 AM EDT Printed both for review. documented in this encounter Plan of Treatment Upcoming Encounters Date Type Department Care Team (Latest Contact Info) Description 09/24/2024 6:00 PM EDT [address] [address] Basim White MD [address] [place] [address] 3 month follow up 11/28/2024 9:40 AM EDT [facility] Endocrinology [place] [address] [place] [address] [place] [address] [address] Type one diabetes pump and cgm follow up 12/20/2024 4:00 PM EDT [address] [address] Christiana Sims PA-C [address] [place] [address] 6 Month follow up and yearly physical 03/04/2025 5:20 PM EST Office Visit [facility] [place] [address] [place] [address] Basim White MD [address] [place] [address] 12 month follow up documented as of [...] JARA RN documented as of this encounter Procedures Procedure Name Priority Date/Time Associated Diagnosis Comments C-PEPTIDE BLD Routine 08/27/2015 10:46 AM EDT Type 1 diabetes mellitus without complication (HCC) documented in this encounter Results * (ABNORMAL) C-PEPTIDE BLD (08/27/2015 10:46 AM EDT) C-Peptide 0.4(L) 0.8 - 3.2 ng/mL 08/27/2015 6:12 PM EDT [facility] Blood specimen (specimen) BLOOD SPECIMEN / Unknown 08/27/2015 10:46 AM EDT 08/27/2015 10:49 AM EDT Garrison Vogel MD LABORATORY Final Result [facility] [address] [place] [address] documented in this encounter Visit Diagnoses Diagnosis Type 1 diabetes mellitus without complication (HCC)- Primary Type I (juvenile type) diabetes mellitus without mention of complication, not stated as uncontrolled documented in this encounter Additional Health Concerns Infection Onset Date Last Indicated Resolved Time COVID-19 Rule-Out 03/22/2020 03/22/2020 03/23/2020 7:16 PM EST COVID-19 Confirmed 02/26/2021 02/26/2021 8:51 PM EST documented as of this encounter Care Teams Regional Office Coordinator Relationship Specialty Start Date End Date Mariam Cruz MD [address] [place] [address] PCP - General Family Medicine 02/09/13 03/08/16 Basim Cavazos PCP - General 03/09/16 04/14/16 Karmen Bass APRN PCP - General 04/15/16 06/09/16 [place] [address] [place] [address] PCP - General Family Medicine 06/10/16 08/08/17 Basim White MD [address] [place] [address] PCP - General Family Medicine 08/09/17 Nate Joyce DO Java Scala Developer 02/09/13 Morena Jara, RN [address] [place] [address] Specialty Loss Prevention Manager Endocrinology 06/08/13 04/04/16 Paulie Sandra MD [address] [facility] 110 [place] [phone] Primary Staff Physician Cardiology 07/04/1807/04 Paulie Sandra MD [address] [facility] [address] [place] [address] Primary Staff Physician Cardiology 07/04/18 Teagan Henriquez, JIE [address] [place], [place] [address] Primary Care President & Ceo [employer] Internal Medicine 06/22/23 07/21/23 Pascale Kc, CUSTOMER ORDER CLERK.HEATING UNIT MECHANIC [id number] [place] [address] Associate Program Manager Family Medicine 03/26/24 07/04/24 Leeanne Balderas, CUSTOMER ORDER CLERK.HEATING UNIT MECHANIC [id number] [place] [address] Associate Program Manager Family Medicine 03/26/24 07/04/24 Juanita Luong PA-C [address] [place] [address] Associate Program Manager Family Medicine 03/26/24 07/04/24 Rubi Rodriguez, CUSTOMER ORDER CLERK.HEATING UNIT MECHANIC [address] [place] [address] Associate Program Manager Family Medicine 03/26/24 07/04/24 Christiana Sims PA-C [address] [place] [address] Associate Program Manager Family Medicine 03/26/24 Tami Vazquez PA-C [address] [place] [address] Associate Program Manager Family Medicine 06/07/24 07/04/24 Juanita Luong PA-C [address] [place] [address] Associate Program Manager Family Medicine 07/11/24 07/25/24 Awa Sanchez PA-C [address] [place] [address] Associate Program Manager Internal Medicine 09/03/24 documented as of this encounter
--- OUTSIDE RECORDS SUMMARY | 2024-09-09 00:49 | XMS_ITS | Encounter Summary ---
Author Organization [facility] Address [address] [place], [place] [address] Care Team Providers Care Delta System Freight Car Cleaner Name Role Phone IsiahNate greenfield Unavailable [phone] Basim White MD Primary Care Provider [phone] Paulie Sandra MD Unavailable [phone] Christiana Sims PA-C Unavailable [phone] Source Comments In the event this information is protected by the Federal Confidentiality of Alcohol and Drug AbusePatient Records regulations: The Federal rules restrict any use of the information to criminally investigate or prosecute any alcohol or drug abuse patient.[facility] Reason for Referral * Consult, Test, Treat (Routine) - Authorized Specialty Diagnoses / Procedures Referred By Contac t Referred To Contact Hospice & Palliative Medicine Diagnoses Physical deconditioning Spasm of muscle Stiff person syndrome Chronic pain syndrome Dysautonomia (HCC) RSD (reflex sympathetic dystrophy) Sjogren's syndrome, with unspecified organ involvement (HCC) Procedures CONSULT TO PALLIATIVE CARE OFFICE/OUTPATIENT [facility] 60 MINUTES Basim White MD [address] [place] [address] Phone: tel: fax: Referral ID Status Reason Start Date Expiration Date Visits Requested Visits Authorized [id number] Authorized PCP Requested Referral 08/26/2024 08/26/2025 1 1 Reason for Visit * Reason Comments Orders Encounter Details Date Type Department Care Team (Late st Contact Info) Description 08/24/[address] [place] [address] 9500 [place] [address] Basim White MD [address] [place] [address] Orders Social History Tobacco Use Types Packs/Day Years Used Date Smoking Tobacco: Never Smokeless Tobacco: Never Alcohol Use Standard Drinks/Week Comments Yes 0 (1 standard drink = 0.6 oz pur e alcohol) rarely [facility] Utilities Answer Date Recorded In the past 12 months has [employer], gas, oil, or water [employer] threatened to shut off services in your home? Patient declined 07/10/2024 Social Connection and Isolat ion Panel [NHANES] Answer Date Recorded In a typical week, how many times do you talk on the phone with family, friends, or neighbors? Once a week 07/10/2024 How often do you get togethe r with friends or relatives? Never 07/10/2024 How often do you attend chur or samaritan services? More than 4 times [...] Answer Date Recorded PHQ-2 score 6 07/10/2024 [facility] - Occupational [...] or slept in a custodial (including now)? No 06/20/2023 Housing Stability Vital [...] is lower risk 7 08/26/2022 Data from: https://www.neighborhoodatlas.medicine.[facility]/. Last address used for calculation [address] [...] Industry Job Start Date Job End Date [place] Not on file Not on file Not [...] encounter Miscellaneous Notes * Telephone Encounter - Esmer Macias RN - 08/28/2024 1:21 PM EDT Verbal order given to Velma * Telephone Encounter - Basim White MD - 08/28/2024 12:25 PM EDT The patient suffers from multiple medical problems and is of generally poor health. I do not know her exact timeline regarding prognosis. For the purposes of the referral, I think 18 months is reasonable * Telephone Encounter - Maddie Schumacher RN - 08/28/2024 11:32 AM EDT Velma from [facility] calling back regarding patient's prognosis. Their director reviewed notes and wanted to clarify criteria to qualify for their program is 18 months or less survival. They are asking PCP if this is her prognosis. Please call Velma at [phone]. * Telephone Encounter - Elizabeth Kelly MA - 08/27/2024 11:20 AM EDT OV notes has been faxed * Telephone Encounter - Alondra Thrasher - 08/27/2024 10:56 AM EDT Velma calling back. Asking if office can please fax over office notes as well. . Please advise. Alondra Thrasher August 27, 2024 10:57 AM * Telephone Encounter - Elizabeth Kelly MA - 08/27/2024 9:46 AM EDT Order has been faxed as requested Fax transmission was OK * Telephone Encounter - Basim White MD - 08/26/2024 8:40 AM EDT Order has been entered. Please let me know if any other questions. Thank you. Basim White MD * Telephone Encounter - Carol Choudhury - 08/24/2024 10:21 AM EDT Velma from [facility] on behalf of Diana is calling Basim White MD today stating that patient's keeps contacting them about getting palliative care for patient. Velma is asking for an order and patient's clinical and insurance information. Velma states they would need patient's diagnosis and to verify that this isn't for pain management. Please fax over information and orders to [phone]. Please call Velma at [phone]. Patient has been identified by name and birthdate. Duration of symptoms: Person calling: Call patient at: Was an appointment scheduled: Closing statement: Carol Choudhury documented in this encounter Plan of Treatment Upcoming Encounters Date Type Department Care Team (Latest Contact Info) Description 09/24/2024 6:00 PM EDT [facility] Medicine [place] [address] [place] [address] Basim White MD [address] [place] [address] 3 month follow up 11/28/2024 9:40 AM EDT [facility] [address] [place] [address] [place] [address] [facility] [address] [place] [address] Type one diabetes pump and cgm follow up 12/20/2024 4:00 PM EDT [facility] Medicine [place] [address] [place] [address] Christiana Sims PA-C [address] [place] [address] 6 Month follow up and yearly physical 03/04/2025 5:20 PM EST Office Visit 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 Chronic pain syndrome Dysautonomia (HCC) Unspecified disorder of autonomic nervous system RSD (reflex sympathetic dystrophy) Reflex sympathetic dystrophy, unspecified Sjogren's syndrome, with unspecified organ involvement (HCC) documented in this encounter Care Teams [employer] Freight Car Cleaner Relationship Specialty Start Date End Date Basim White MD [address] [place] [address] PCP - General Family Medicine 08/09/17 Nate Joyce DO Maid Supervisor 02/09/13 Paulie Sandra MD [address] [phone] Primary Staff Physician Cardiology 07/04/18 Christiana Sims PA-C [address] [place] [address] Deputy City Clerk Family Medicine 03/26/24 documented as of this encounter
--- OUTSIDE RECORDS SUMMARY | 2024-09-09 00:49 | XMS_ITS | Encounter Summary ---
Author Organization [facility] Address [address] [place] [address] Care Team Providers Care Tamper Operator Name Role Phone IsiahNate greenfield Cecelia OSBORNE Unavailable [phone] Basim White MD Primary Care Provider [phone] Paulie Sandra MD Unavailable [phone] Christiana Sims PA-C Unavailable [phone] Awa Sanchez PA-C Unavailable [phone] Source Comments In the event this information is protected by the Federal Confidentiality of Alcohol and Drug AbusePatient Records regulations: The Federal rules restrict any use of the information to criminally investigate or prosecute any alcohol or drug abuse patient.[facility] Encounter Details Date Type Department Care Team (Late st Contact Info) Description 07/27/2024 Patient Msg Neurology [address] [place], [place] [id number] Provider, Ccf Ketamine infusions Social History Tobacco Use Types Packs/Day Years Used Date Smoking Tobacco: Never Smokeless Tobacco: Never Alcohol Use Standard Drinks/Week Comments Yes 0 (1 standard drink = 0.6 oz pur e alcohol) rarely [facility] Utilities Answer Date Recorded In the past [...] How often do you attend chur or confucianism services? More than 4 times per year 07/10/2024 Do you belong to any clubs o r organizations such as islam groups, unions, fraternal or athletic groups, or [...] Answer Date Recorded PHQ-2 score 6 07/10/2024 [facility] - Occupational [...] in a intermediate (including now)? No 06/20/2023 Housing Stability Vital [...] risk 7 08/26/2022 Data from: https://www.neighborhoodatlas.medicine.[facility]/. Last address used for calculation [address] [...] Industry Job Start Date Job End Date [employer] Not on file Not on file Not [...] Contact Info) Description 09/24/2024 6:00 PM EDT [facility] Medicine [place] [address] [place] [address] Basim White MD [address] [place] [address] 3 month follow up 11/28/2024 9:40 AM EDT [facility] Endocrinology [place] [address] [place] [address] [place] [address] [address] Type one diabetes pump and cgm follow up 12/20/2024 4:00 PM EDT [facility] [address] [place] [address] Christiana Sims PA-C [address] [place] [address] 6 Month follow up and yearly physical 03/04/2025 5:20 PM EST Office Visit Formerly Named [facility] [address] [place] [address] Basim White MD [address] [place] [address] 12 month follow up documented as of [...] on filedocumented in this encounter Care Teams Tamper Operator Relationship Specialty Start Date End Date Basim White MD [address] [place] [address] PCP - General Family Medicine 08/09/17 Nate Joyce DO Picking Supervisor 02/09/13 Paulie Sandra MD [address] [address] Primary Staff Physician Cardiology 07/04/18 Christiana Sims PA-C [address] [place] [address] Legal Services Manager Family Medicine 03/26/24 Awa Sanchez PA-C [address] [place] [address] Legal Services Manager Internal Medicine 09/03/24 documented as of this encounter
--- OUTSIDE RECORDS SUMMARY | 2024-09-09 00:49 | XMS_ITS | Encounter Summary ---
Author Organization [facility] Address [address] [place], [place] [address] Care Team Providers Care Political Organizer Name Role Phone Nate Joyce DO Unavailable [phone] Mariam Cruz MD Primary Care Provider Morena Jara RN Unavailable [phone] Basim Cavazos Primary Care Provider Unavailabl e Pcp, No ASSISTANT RESEARCH SCIENTIST Primary Care Provider Unavailabl e Anastasia Ruiz DO Primary Care Provider Basim White MD Primary Care Provider [phone] Paulie Sandra MD Unavailable Paulie Sandra MD Unavailable Teagan Henriquez RN Unavailable [employer] K[employer] ASSISTANT RESEARCH SCIENTIST.JUNIOR PROGRAMMER Unavailable Leeanne Balderas ASSISTANT RESEARCH SCIENTIST.JUNIOR PROGRAMMER Unavailable Juanita Luong PA-C Unavailable Rubi Rodriguez ASSISTANT RESEARCH SCIENTIST.JUNIOR PROGRAMMER Unavailable Christiana Sims PA-C Unavailable Tami Vazquez PA-C Unavailable [phone] Juanita Luong PA-C Unavailable Awa Sanchez [...] Care Team (Late st Contact Info) Description 01/14/2015 Patient Msg Medical Records [address] [place] [address] Provider, Ccf RE:Endo Lab Orders Social History Tobacco Use Types [...] Industry Job Start Date Job End Date [employer] Not on file Not on file Not [...] Contact Info) Description 09/24/2024 6:00 PM EDT [address] [address] Basim White MD [address] [place] [address] 3 month follow up 11/28/2024 9:40 AM EDT [facility] Endocrinology [place] [address] [place] [address] [place] [address] [address] Type one diabetes pump and cgm follow up 12/20/2024 4:00 PM EDT [address] [address] Christiana Sims PA-C [address] [place] [address] 6 Month follow up and yearly physical 03/04/2025 5:20 PM EST Office Visit [address] [address] Basim White MD [address] [place] [address] 12 month follow up documented as of [...] documented as of this encounter Care Teams Political Organizer Relationship Specialty Start Date End Date Mariam Cruz MD [address] [place] [address] PCP - General Family Medicine 02/09/13 03/08/16 Basim Cavazos PCP - General 03/09/16 04/14/16 Pcp, Karmen, ISABELLA PCP - General 04/15/16 06/09/16 [place] [address] [place], [place] [address] PCP - General Family Medicine 06/10/16 08/08/17 Basim White MD [address] [place] [address] PCP - General Family Medicine 08/09/17 Nate Joyce DO Fast Food Worker 02/09/13 Morena Jraa, RN [address] [place] [address] Specialty Electrolysist Endocrinology 06/08/13 04/04/16 Paulie Sandra MD [address] [facility] [address] [place] [phone] Primary Staff Physician Cardiology 07/04/1807/04 Paulie Sandra MD [address] [facility] [address] [place] [address] Primary Staff Physician Cardiology 07/04/18 Teagan Henriquez, JIE [address] [place] [address] Primary Care Nursing Department Chairperson Internal Medicine 06/22/23 07/21/23 Pascale Kc, ASSISTANT RESEARCH SCIENTIST.JUNIOR PROGRAMMER [address] [place] [address] Forensic Social Worker Family Medicine 03/26/24 07/04/24 Leeanne Balderas, ASSISTANT RESEARCH SCIENTIST.JUNIOR PROGRAMMER [address] [place] [address] Forensic Social Worker Family Medicine 03/26/24 07/04/24 Juanita Luong PA-C [address] [place] [address] Forensic Social Worker Family Medicine 03/26/24 07/04/24 Rubi Rodriguez APRN.CNP [address] [place] [address] Forensic Social Worker Family Medicine 03/26/24 07/04/24 Christiana Sims PA-C [address] [place] [address] Forensic Social Worker Family Medicine 03/26/24 Tami Vazquez PA-C [address] [place] [address] Forensic Social Worker Family Medicine 06/07/24 07/04/24 Juanita Luong PA-C [address] [place] [address] Forensic Social Worker Family Medicine 07/11/24 07/25/24 Awa Sanchez PA-C [address] [place] [address] Forensic Social Worker Internal Medicine 09/03/24 documented as of this encounter
--- OUTSIDE RECORDS SUMMARY | 2024-09-09 00:49 | XMS_ITS | Encounter Summary ---
Author Organization [facility] Address [address] [place], [place] [id number] Care Team Providers Care Tests Superintendent Name Role Phone Nate Joyce DO Unavailable [phone] Mariam Cruz MD Primary Care Provider Morena Jara RN Unavailable [phone] Basim Cavazos Primary Care Provider Unavailabl e Pcp, No MANAGER OPERATIONS RESEARCH Primary Care Provider Unavailabl e Anastasia Ruiz DO Primary Care Provider Basim White MD Primary Care Provider [phone] Paulie Sandra MD Unavailable Paulie Sandra MD Unavailable Teagan Henriquez RN Unavailable Pascale Kc MANAGER OPERATIONS RESEARCH.RECREATION THERAPIST Unavailable Leeanne Balderas MANAGER OPERATIONS RESEARCH.RECREATION THERAPIST Unavailable Juanita Luong PA-C Unavailable Rubi Rodriguez MANAGER OPERATIONS RESEARCH.RECREATION THERAPIST Unavailable Christiana Sims PA-C Unavailable Tami Vazquez PA-C Unavailable [phone] Juanita Luong PA-C Unavailable Awa Sanchez PA-C Unavailable Source Comments In the event this information is protected by the Federal Confidentiality of Alcohol and Drug AbusePatient Records regulations: The Federal rules restrict any use of the information to criminally investigate or prosecute any alcohol or drug abuse patient.[facility] Encounter Details Date Type Department Care Team (Late st Contact Info) Description 02/01/2015 Get Medical Advice Neurology [address] [place], [place] [id number] Lalitha Grewal(Hist) [address] [place] [address] RE: Test Result Question Social History Tobacco Use Types Packs/Day [...] Industry Job Start Date Job End Date [employer] Not on file Not on file Not [...] Info) Description 09/24/2024 6:00 PM EDT [address] [address] Basim White MD [address] [place] [address] 3 month follow up 11/28/2024 9:40 AM EDT [facility] [place] [address] [place] [address] [place] [address] [address] Type one diabetes pump and cgm follow up 12/20/2024 4:00 PM EDT [address] [address] Christiana Sims PA-C [address] [place] [address] 98471 6 Month follow up and yearly physical 03/04/2025 5:20 PM EST Office Visit [address] [address] Basim White MD [address] [place] [address]16[address] 12 month follow up documented as of [...] documented as of this encounter Care Teams Tests Superintendent Relationship Specialty Start Date End Date Mariam Cruz MD [address] [id number] PCP - General Family Medicine 02/09/13 03/08/16 Basim Cavazos PCP - General 03/09/16 04/14/16 Pcp, Karmen, MANAGER OPERATIONS RESEARCH PCP - General 04/15/16 06/09/16 [place] [address] [place] [address] PCP - General Family Medicine 06/10/16 08/08/17 Basim White MD 450 [place] [address] PCP - General Family Medicine 08/09/17 Nate Joyce DO Supervisor Game Farm 02/09/13 Morena Jara, RN 5700 [place] [address] Specialty Human Projectile Endocrinology 06/08/13 04/04/16 Paulie Sandra MD [address] [facility] 110 [place] [phone] Primary Staff Physician Cardiology 07/04/1807/04 Paulie Sandra MD [address] [facility] 110 [place] [address] Primary Staff Physician Cardiology 07/04/18 Teagan Henriquez, RN 6000 [place] [address] Primary Care Armored Car Driver Internal Medicine 06/22/23 07/21/23 Pascale Kc, MANAGER OPERATIONS RESEARCH.RECREATION THERAPIST [address] [place] [address] Ad Copy Writer Family Medicine 03/26/24 07/04/24 Leeanne Balderas APRN.RECREATION THERAPIST [address] [place] [address] Ad Copy Writer Family Medicine 03/26/24 07/04/24 Juanita Luong PA-C [address] [place] [address] Ad Copy Writer Family Medicine 03/26/24 07/04/24 Rubi Rodriguez APRN.RECREATION THERAPIST [address] [place] [address] Ad Copy Writer Family Medicine 03/26/24 07/04/24 Christiana Sims PA-C [address] [place] [address] Ad Copy Writer Family Medicine 03/26/24 Tami Vazquez PA-C [address] [place] [address] Ad Copy Writer Family Medicine 06/07/24 07/04/24 Juanita Luong PA-C [address] [place] [address] Ad Copy Writer Family Medicine 07/11/24 07/25/24 Awa Sanchez PA-C [address] [place] [address] [facility] Internal Medicine 09/03/24 documented as of this encounter
--- OUTSIDE RECORDS SUMMARY | 2024-09-09 00:49 | XMS_ITS | Encounter Summary ---
Author Organization [facility] Address [address] [place], [place] [address] Care Team Providers Care Recording Studio Internship Name Role Phone Nate Joyce Unavailable [phone] Basim White MD Primary Care Provider Paulie Sandra MD Unavailable Paulie Sandra MD Unavailable Teagan Henriquez RN Unavailable P[employer] Kc CLIENT RELATIONS REPRESENTATIVE.TRANSPORTATION SERVICES REPRESENTATIVE Unavailable Leeanne Balderas CLIENT RELATIONS REPRESENTATIVE.TRANSPORTATION SERVICES REPRESENTATIVE Unavailable [phone] Juanita Luong PA-C Unavailable Rubi Rodriguez CLIENT RELATIONS REPRESENTATIVE.TRANSPORTATION SERVICES REPRESENTATIVE Unavailable Christiana Sims PA-C Unavailable Tami Vazquez PA-C Unavailable [phone] Juanita Luong PA-C Unavailable Awa Sanchez [...] Care Team (Late st Contact Info) Description 07/20/2018 Get Medical Advice Family Medicine [place] [address] [place] [address] Basim White MD [address] [place], [place] [phone] RE: Visit Follow Up Question Social History [...] 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 documented in this encounter Plan of Treatment Upcoming Encounters Date Type Department Care Team (Latest Contact Info) Description 09/24/2024 6:00 PM EDT [address] [address] Basim White MD [address] [place] [address] 3 month follow up 11/28/2024 9:40 AM EDT [facility] Endocrinology [place] [address] [place] [phone] [place] [address] [address] Type one diabetes pump and cgm follow up 12/20/2024 4:00 PM EDT [address] [address] Christiana Sims PA-C [address] [place] [address] 28559 6 Month follow up and yearly physical 03/04/2025 5:20 PM EST Office Visit [address] [address] Basim White MD [address] [place] [address]47 12 month follow up documented as of [...] documented as of this encounter Care Teams Recording Studio Internship Relationship Specialty Start Date End Date Basim White MD [address] [place] [address] PCP - General Family Medicine 08/09/17 Nate Joyce DO Business Practices Officer 02/09/13 Paulie Sandra MD [address] [facility] 110 [place] [address] Primary Staff Physician Cardiology 07/04/1807/04 Paulie Sandra MD [address] [facility] 110 [place] [address] Primary Staff Physician Cardiology 07/04/18 Teagan Henriquez, RN [address] [phone] Primary Care Tick Sewer Internal Medicine 06/22/23 07/21/23 Pascale Kc, CLIENT RELATIONS REPRESENTATIVE.TRANSPORTATION SERVICES REPRESENTATIVE [address] [place] [address] Casting And Curing Operator Family Medicine 03/26/24 07/04/24 Leeanne Balderas, CLIENT RELATIONS REPRESENTATIVE.TRANSPORTATION SERVICES REPRESENTATIVE [address] [place] [address] Casting And Curing Operator Family Medicine 03/26/24 07/04/24 Juanita Luong PA-C [address] [place] [address] Casting And Curing Operator Family Medicine 03/26/24 07/04/24 Rubi Rodriguez, CLIENT RELATIONS REPRESENTATIVE.TRANSPORTATION SERVICES REPRESENTATIVE [address] [place] [address] [facility] Family Medicine 03/26/24 07/04/24 Christiana Sims PA-C [address] [place] [address] Casting And Curing Operator Family Medicine 03/26/24 Tami Vazquez PA-C [address] [place] [address] [facility] Family Medicine 06/07/24 07/04/24 uJanita Luong PA-C [address] [place] [address] [facility] Family [facility] 07/11/24 07/25/24 Awa Sanchez PA-C [address] [place] [address] [facility] Internal Medicine 09/03/24 documented as of this encounter
--- OUTSIDE RECORDS SUMMARY | 2024-09-09 00:49 | XMS_ITS | Encounter Summary ---
Author Organization [facility] Address [address] [place], [place] [address] Care Team Providers Care Site Auditor Name Role Phone Nate Joyce Unavailable [phone] Basim White MD Primary Care Provider [phone] Paulie Sandra MD Unavailable Paulie Sandra MD Unavailable Teagan Henriquez RN Unavailable Pascale Kc LATHE HAND.BAR MACHINE OPERATOR PRODUCTION Unavailable Leeanne Balderas LATHE HAND.BAR MACHINE OPERATOR PRODUCTION Unavailable [phone] Juanita Luong PA-C Unavailable Rubi Rodriguez LATHE HAND.BAR MACHINE OPERATOR PRODUCTION Unavailable Christiana Sims PA-C Unavailable Tami Vazquez PA-C Unavailable [phone] Juanita Luong PA-C Unavailable Awa Sanchez PA-C Unavailable Source Comments In the event this information is protected by the Federal Confidentiality of Alcohol and Drug AbusePatient Records regulations: The Federal rules restrict any use of the information to criminally investigate or prosecute any alcohol or drug abuse patient.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 on file Not [...] Info) Description 09/24/2024 6:00 PM EDT [address] [address] Basim White MD [address] [place] [address] 3 month follow up 11/28/2024 9:40 AM EDT [facility] Endocrinology [place] [address] [place] [address] [place] [address] [address] Type one diabetes pump and cgm follow up 12/20/2024 4:00 PM EDT [address] [address] Christiana Sims PA-C [address] [place] [address] 6 Month follow up and yearly physical 03/04/2025 5:20 PM EST Office Visit [address] [address] Basim White MD [address] [place] [address] 12 month follow up documented as of [...] documented as of this encounter Care Teams Site Auditor Relationship Specialty Start Date End Date Basim White MD [address] [place] [address] PCP - General Family Medicine 08/09/17 Nate Joyce DO Ivf Embryologist 02/09/13 Paulie Sandra MD [address] [phone] Primary Staff Physician Cardiology 07/04/1807/04 Paulie Sandra MD [address] [address] Primary Staff Physician Cardiology 07/04/18 Teagan Henrqiuez, RN [address] [phone] Primary Care Finishing Range Operator Internal Medicine 06/22/23 07/21/23 Pascale Kc, LATHE HAND.BAR MACHINE OPERATOR PRODUCTION [address] [place] [address] Strap Making Machine Operator Family Medicine 03/26/24 07/04/24 Leeanne Balderas, LATHE HAND.BAR MACHINE OPERATOR PRODUCTION [address] [place] [address] Strap Making Machine Operator Family Medicine 03/26/24 07/04/24 Juanita Luong PA-C [address] [place] [address] Strap Making Machine Operator Family Medicine 03/26/24 07/04/24 Rubi Rodriguez, LATHE HAND.BAR MACHINE OPERATOR PRODUCTION [address] [place] [address] Strap Making Machine Operator Family Medicine 03/26/24 07/04/24 Christiana Sims PA-C [address] [place] [address] Strap Making Machine Operator Family Medicine 03/26/24 Tami Vazquez PA-C [address] [place] [address] Strap Making Machine Operator Family Medicine 06/07/24 07/04/24 Juanita Luong PA-C [address] [place] [address] Strap Making Machine Operator Family Medicine 07/11/24 07/25/24 Awa Sanchez PA-C [facility] [place], [place] [address] Strap Making Machine Operator Internal Medicine 09/03/24 documented as of this encounter
--- OUTSIDE RECORDS SUMMARY | 2024-09-09 00:49 | XMS_ITS | Encounter Summary ---
Author Organization [facility] Address [address] [place], [place] [address] Care Team Providers Care Animal Herder Name Role Phone Nate Joyce DO Unavailable [phone] Mariam Cruz MD Primary Care Provider Morena Jara RN Unavailable [phone] Basim Cavazos Primary Care Provider Unavailabl e Pcp, No RETAIL EVENT COORDINATOR Primary Care Provider Unavailabl e Anastasia Ruiz DO Primary Care Provider Basim White MD Primary Care Provider [phone] Paulie Sandra MD Unavailable Paulie Sandra MD Unavailable Teagan Henriquez RN Unavailable Pascale Kc RETAIL EVENT COORDINATOR.WINDMILL MECHANIC Unavailable Leeanne Balderas RETAIL EVENT COORDINATOR.WINDMILL MECHANIC Unavailable Juanita Luong PA-C Unavailable Rubi Rodriguez RETAIL EVENT COORDINATOR.WINDMILL MECHANIC Unavailable Christiana Sims PA-C Unavailable Tami Vazquez PA-C Unavailable [phone] Juanita Luong PA-C Unavailable Awa Sanchez PA-C Unavailable Source Comments In the event this information is protected by the Federal Confidentiality of Alcohol and Drug AbusePatient Records regulations: The Federal rules restrict any use of the information to criminally investigate or prosecute any alcohol or drug abuse patient.[facility] Encounter Details Date Type Department Care Team (Late st Contact Info) Description 02/18/2015 Get Medical Advice Endocrinology 5700 [place] [address] [place] [address] [place] [address] RE: Visit Follow Up Question Social History [...] 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 Answer Entry Date Author No 09/02/2014 1:42 PM EDT Dori Llamas documented in this encounter Miscellaneous Notes * Telephone Encounter - Judy Ahn - 02/25/2015 6:19 PM EST Noted. * Telephone Encounter - Kirstie Duron) - 02/25/2015 3:48 PM EST Called [facility]. Bullet Swaging Machine Operator stated they already have everything they need from the doctor. * Telephone Encounter - Kirstie Duron) - 02/24/2015 5:02 PM EST Called [facility]. Bullet Swaging Machine Operator stated our office needs to talk to the Diabetic department, but they closed at 5:00. Bullet Swaging Machine Operator stated to call back tomorrow [phone] ext. [phone], option 3. * Telephone Encounter - Judy Ahn - 02/20/2015 5:53 PM EST Can we please call [facility] and see what else is needed. Thanks. documented in this encounter Plan of Treatment Upcoming Encounters Date Type Department Care Team (Latest Contact Info) Description 09/24/2024 6:00 PM EDT [address] [address] Basim White MD [address] [place] [address] 3 month follow up 11/28/2024 9:40 AM EDT [facility] Endocrinology [place] [address] [place] [address] [place] [address] [address] Type one diabetes pump and cgm follow up 12/20/2024 4:00 PM EDT [address] [address] Christiana Sims PA-C [address] [place] [address] 6 Month follow up and yearly physical 03/04/2025 5:20 PM EST Office Visit [address] [address] Basim White MD [address] [place] [address] 12 month follow up documented as of [...] documented as of this encounter Care Teams Animal Herder Relationship Specialty Start Date End Date Mariam Cruz MD [address] [place] [address] PCP - General Family Medicine 02/09/13 03/08/16 Basim Cavazos PCP - General 03/09/16 04/14/16 PcpKarmen, RETAIL EVENT COORDINATOR PCP - General 04/15/16 06/09/16 [place] [address] [place] [address] PCP - General Family Medicine 06/10/16 08/08/17 Basim White MD 450 [place] [address] PCP - General Family Medicine 08/09/17 Nate Joyce DO Senior Licensing Manager 02/09/13 Morena Jara, RN 5700 [place] [address] Specialty Feeder Loader Endocrinology 06/08/13 04/04/16 Paulie Sandra MD [address] [facility] 110 [place] [address] Primary Staff Physician Cardiology 07/04/1807/04 Paulie Sandra MD [address] [facility] [address] [place] [address] Primary Staff Physician Cardiology 07/04/18 Teagan Henriquez, JIE 6000 [place] [address] Primary Care Telephone Triage Nurse Internal Medicine 06/22/23 07/21/23 Pascale Kc, RETAIL EVENT COORDINATOR.WINDMILL MECHANIC [address] [place] [address] [facility] Family [facility] 03/26/24 07/04/24 Leeanne Balderas, RETAIL EVENT COORDINATOR.WINDMILL MECHANIC [address] [place] [address] Underwriting Service Representative Family Medicine 03/26/24 07/04/24 Juanita Luong PA-C [address] [place] [address] [facility] Family [facility] 03/26/24 07/04/24 Rubi Rodriguez, RETAIL EVENT COORDINATOR.WINDMILL MECHANIC [address] [place] [address] [facility] Family [facility] 03/26/24 07/04/24 Christiana Sims PA-C [address] [place] [address] Underwriting Service Representative Family Medicine 03/26/24 Tami Vazquez PA-C [address] [place] [address] Underwriting Service Representative Family Medicine 06/07/24 07/04/24 Juanita Luong PA-C [address] [place] [address] Underwriting Service Representative Family Medicine 07/11/24 07/25/24 Awa Sanchez PA-C [address] [place] [address] Underwriting Service Representative Internal Medicine 09/03/24 documented as of this encounter
--- OUTSIDE RECORDS SUMMARY | 2024-09-09 00:49 | XMS_ITS | Encounter Summary ---
Author Organization [facility] Address [address] [place], [place] [address] Care Team Providers Care Tile Mechanic Helper Name Role Phone Nate Joyce DO Unavailable [phone] Mariam Cruz MD Primary Care Provider Morena Jara RN Unavailable [phone] Basim Cavazos Primary Care Provider Unavailabl e Pcp, No GUNITE NOZZLE OPERATOR Primary Care Provider Unavailabl e Anastasia Ruiz DO Primary Care Provider Basim White MD Primary Care Provider [phone] Paulie Sandra MD Unavailable Paulie Sandra MD Unavailable Teagan Henriquez RN Unavailable Pascale Kc GUNITE NOZZLE OPERATOR.TOY DEPARTMENT MANAGER Unavailable Leeanne Balderas GUNITE NOZZLE OPERATOR.TOY DEPARTMENT MANAGER Unavailable Juanita Luong PA-C Unavailable Rubi Rodriguez GUNITE NOZZLE OPERATOR.TOY DEPARTMENT MANAGER Unavailable Christiana Sims PA-C Unavailable Tami Vazquez PA-C Unavailable [phone] Juanita Luong PA-C Unavailable Awa Sanchez PA-C Unavailable Source Comments In the event this information is protected by the Federal Confidentiality of Alcohol and Drug AbusePatient Records regulations: The Federal rules restrict any use of the information to criminally investigate or prosecute any alcohol or drug abuse patient.[facility] Encounter Details Date Type Department Care Team (Late st Contact Info) Description 03/13/2015 Get Medical Advice Endocrinology [address] [place] [address] [place] [address] [place] [address] Visit Follow Up Question Social History Tobacco [...] Industry Job Start Date Job End Date [employer] Not on file Not on file Not [...] 09/02/2014 1:42 PM EDT Eboni Marks fadiDori documented as of this encounter Mental Status * Because of a physical, mental, or emotional condition, do you have serious difficulty concentrating, remembering, or making decisions? Answer Entry Date Author No 09/02/2014 1:42 PM EDT Eboni Marks fadiDori documented in this encounter Miscellaneous Notes * Telephone Encounter - Shilpa Westbrook (Adrian) - 03/17/2015 12:40 PM EST Printed Tandem placing on Dr. Ahn's desk documented in this encounter Plan of Treatment Upcoming Encounters Date Type Department Care Team (Latest Contact Info) Description 09/24/2024 6:00 PM EDT [address] [address] Basim White MD [address] [place] [address] 3 month follow up 11/28/2024 9:40 AM EDT [facility] Endocrinology [place] [address] [place] [address] [place] [address] [address] Type one diabetes pump and cgm follow up 12/20/2024 4:00 PM EDT [address] [address] Christiana Sims PA-C [address] [place] [address] 6 Month follow up and yearly physical 03/04/2025 5:20 PM EST Office Visit Family Medicine [place] [address] [place] [address] Basim White MD [address] [place] [address] 12 month follow up documented as of [...] documented as of this encounter Care Teams Tile Mechanic Helper Relationship Specialty Start Date End Date Mariam Cruz MD [address] [place] [address] PCP - General Family Medicine 02/09/13 03/08/16 Basim Cavazos PCP - General 03/09/16 04/14/16 Karmen Bass, GUNITE NOZZLE OPERATOR PCP - General 04/15/16 06/09/16 [place] [address] [place] [address] PCP - General Family Medicine 06/10/16 08/08/17 Basim White MD [address] [place] [address] PCP - General Family Medicine 08/09/17 Nate Joyce DO Fruit Picker Machine Operator 02/09/13 Morena Jara, RN 5700 [place] [address] Specialty Kitchen Cleaner Endocrinology 06/08/13 04/04/16 Paulie Sandra MD [address] [facility] 110 [place] [address] Primary Staff Physician Cardiology 07/04/1807/04 Paulie Sandra MD [address] [facility] 110 [place] [address] Primary Staff Physician Cardiology 07/04/18 Teagan Henriquez, JIE 6000 [place] [address] Primary Care Glaze Handler Internal Medicine 06/22/23 07/21/23 Pascale Kc, GUNITE NOZZLE OPERATOR.TOY DEPARTMENT MANAGER [address] [place] [address] [facility] Family Medicine 03/26/24 07/04/24 Leeanne Balderas, ISABELLA.TOY DEPARTMENT MANAGER [address] [place] [address] [facility] Family Medicine 03/26/24 07/04/24 Juanita Luong PA-C [address] [place] [address] [facility] Medicine 03/26/24 07/04/24 Rubi Rodriguez, ISABELLA.TOY DEPARTMENT MANAGER [address] [place] [address] [facility] Family Medicine 03/26/24 07/04/24 Christiana Sims PA-C [address] [place] [address] [facility] Family Medicine 03/26/24 Tami Vazquez PA-C [address] [place] [address] [facility] Family Medicine 06/07/24 07/04/24 Juanita Luong PA-C [address] [place] [address] [facility] Family Medicine 07/11/24 07/25/24 Awa Sanchez PA-C [address] [place] [address] [facility] Internal Medicine 09/03/24 documented as of this encounter
--- OUTSIDE RECORDS SUMMARY | 2024-09-09 00:50 | XMS_ITS | Clinical Summary ---
Author Organization [facility] Address [address] [place], [place] [id number] Care Team Providers Care Tool Grinder Set Up Operator Gear Name Role Phone Nate Joyce Unavailable [phone] Basim White MD Primary Care Provider Paulie Sandra MD Unavailable [phone] Christiana SimsC Unavailable [phone] Awa Sanchez PA-C Unavailable [phone] Allergies Active Allergy Reactions Criticality Noted Date Comments Aluminum Rash,Other: See Comments 03/26/2013 With surgical manas, gets redness and swelling around each area of entry into skin. Glucagon Swelling 01/05/2021 Numbness and burning over body. Has had other glucagon without difficulty. Ciprofloxacin Other: See Comments High 08/10/2015 migraine Divalproex Other: See Comments 05/18/2018 Hallucinations Cephalexin Hives 02/14/2013 Patient states can take Penicillins Latex Swelling 02/14/2013 Nitrofurantoin Monohyd/M-Cryst Other: See Comments 02/14/2013 Flu like symptoms Metformin GI Upset 01/13/2022 Prednisolone Hives 08/10/2015 Sulfa (Sulfonamide Antibiotics) Rash,Unknown High 02/14/2013 Dulaglutide GI Upset 03/16/2023 Medications * This document contains information received from the source organization and may not represent a complete record from that organization. albuterol HFA (VENTOLIN HFA) 90 mcg/actuation inhaler Inhale 2 Puffs as instructed every 4 hours as needed for Wheezing/Shortnes s of Breath. 1 Inhaler 2 018 Active Blood-Glucose Meter (ACCU-CHEK MICKI PLUS METER) misc TEST BLOOD SUGARS 5 TIMES A DAY. Dx: E10.9, on insulin. 1 Each 018 Active blood sugar diagnostic (ACCU-CHEK MICKI PLUS TEST STRP) test strip TEST BLOOD SUGARS 5 TIMES A DAY. Dx: E10.9, on insulin. 150 Strip 3 018 Active diphenhydrAMINE (BENADRYL) 25 mg capsule Take 25 mg by mouth three times daily. Active COMPOUNDED PRESCRIPTION Power wheelchair 1 Each 1 019 Active Blood Pressure Monitor kit 1 Each once daily. 1 Kit 019 Active diclofenac sodium (VOLTAREN) 1 % topical gelIndications:C ontusion of bone Apply 2 g to affected area twice daily as needed (to affected area.). 100 g 3 020 Active CPAP 1 Units as directed. Please provide AutoCPAP 7-20 cm H2O, lifetime supplies - including mask ([employer] Bravida nasal pillow mask or patient preference), heated humidity, heated tubing, filters. DME: [facility] Diagnosis: G47.33 1 Device 020 Active acetaminophen (TYLENOL EXTRA STRENGTH) 500 mg tablet Take 500 mg by mouth every 8 hours as needed. Active CPAP/BIPAP/OTHER Type .CPAPSettings into a note to see current settings/supplies /DME information. 1 Each 024 2051 Active EPINEPHrine (EPIPEN) 0.3 mg/0.3 mL auto-injector Inject 0.3 mL intramuscularly as needed. 2 Each 3 024 Active naproxen (NAPROSYN) 500 mg tabletIndication s:Diabetic polyneuropathy associated with type 2 diabetes mellitus (HCC) Take 1 tablet by mouth two times a day with meals. 180 tablet 3 025 Active levothyroxine (SYNTHROID) 50 mcg tabletIndication s:Hypothyroidism , acquired Take 1 tablet by mouth daily before breakfast. 90 tablet 1 Active insulin aspart U-100 (NOVOLOG U-100 INSULIN ASPART) 100 unit/mLIndicatio ns:Type 1 diabetes mellitus with hyperglycemia (HCC) USE DIRECTED IN INSULIN PUMP, TOTAL DAILY DOSE OF 200 UNITS 60 mL Active propranolol ER (INDERAL LA) 60 mg 24 hr capsuleIndicatio ns:Essential hypertension,Ess ential tremor Take 1 capsule by mouth once daily. 90 capsule Active montelukast (SINGULAIR) 10 mg tabletIndication s:Nonallergic rhinitis Take 1 tablet by mouth once daily. 90 tablet 025 Active esomeprazole (NEXIUM) 40 mg capsuleIndicatio ns:Gastroesophag eal reflux disease, unspecified whether esophagitis present Take 1 capsule by mouth daily at 6 am. 90 capsule 025 Active buPROPion XL (WELLBUTRIN XL) 300 mg 24 hr tabletIndication s:Depression, unspecified depression type Take 1 tablet by mouth once daily. 90 tablet Active cholecalciferol, Vitamin D3, (VITAMIN D3) 1,250 mcg (50,000 unit) cap capsuleIndicatio ns:Vitamin D deficiency Take 1 capsule by mouth one time a week. 5 capsule Active cyanocobalamin, vitamin B-12, 5,000 mcg capIndications:V itamin B12 deficiency One daily 100 capsule Active triamterene-hydr oCHLOROthiazide (MAXZIDE-25MG) 37.5-25 mg per tablet Take 2 tablets by mouth every morning. 180 tablet Active atorvastatin (LIPITOR) 40 mg tabletIndication s:Type 1 diabetes mellitus with hyperglycemia (HCC),Mixed hyperlipidemia Take 1 tablet by mouth daily at bedtime. 90 tablet 2024 Active glucagon (GVOKE HYPOPEN 2-PACK) 1 mg/0.2 mL auto-injectorInd ications:Type 1 diabetes mellitus with hyperglycemia (HCC) Inject 1 mg subcutaneously as needed. For severe hypoglycemia. 0.4 mL Active fluticasone (FLONASE) 50 mcg/actuation nasal sprayIndications :Nonallergic rhinitis Use 1 spray in each nostril once daily. 3 each Active metoclopramide HCl (REGLAN) 10 mg tabletIndication s:Nausea Take 1 tablet by mouth three times a day as needed. 90 tablet 1 Active diazePAM (VALIUM) 5 mg tabletIndication s:Stiff person syndrome Take 1 tablet by mouth every 12 hours as needed for up to 30 days. 60 tablet 025 2024 Active diazePAM (VALIUM) 5 mg tabletIndication s:Autoimmune disorder (HCC) Take 1 tablet by mouth every 12 hours as needed for up to 90 days. 60 tablet 2 025 2024 Discontinued diazePAM (VALIUM) 5 mg tabletIndication s:Stiff person syndrome Take 1 tablet by mouth every 12 hours as needed for up to 90 days. 60 tablet 025 2024 Discontinued Active Problems Problem Noted Date Diagnosed Date Moderate recurrent major depression 07/18/2023 Physical deconditioning 06/20/2023 Chronic pain syndrome 06/20/2023 Assessment & Plan (06/20/2023 1:09 PM EST): Complains of generalized pain in all her joints. 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 PLAN -pain management consulted Appreciate recommendations Currently on Tylenol, Voltaren and tizanidine Has outpatient follow-up with chronic pain management services Central sensitization to pain 06/20/2023 Spasm of muscle 06/20/2023 Early diabetic ketoacidosis in type 1 diabetes sona lopez 06/19/2023 Assessment & Plan (06/20/2023 1:07 PM EST): History of type 1 diabetes admitted with concerns for DKA - RESOLVED PLAN Endocrinology following, appreciate recs Continue long-acting insulin, SSI, mealtime insulin Carb controlled diet Continue Accu-Cheks Pseudohyponatremia 06/19/2023 Hyperkalemia 06/19/2023 Generalized weakness 06/18/2023 Assessment & Plan (06/20/2023 1:08 PM EST): Admitted with concerns of generalized weakness, inability to move any of her joints neurology followed for concerns of a stroke imaging with CT head, CTA head and neck, MRI-not concerning for acute stroke Plan DC stroke pathway Follow-up on TTE results Continue statin Dysautonomia 05/20/2023 Diabetic polyneuropathy asso ciated with type 2 diabetes mellitus 05/20/2023 Depression, recurrent 11/12/2022 Sjogren syndrome 09/08/2022 Nausea 01/14/2022 Liver lesion 01/14/2022 Mixed hyperlipidemia 01/13/2022 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 Achilles tendinosis of both lower extremities RSD (reflex sympathetic dystrophy) 11/14/2020 Essential tremor 01/31/2020 Angio-edema 07/19/2018 Shortness of breath 07/19/2018 Throat discomfort 07/19/2018 Nonallergic rhinitis 07/19/2018 Idiopathic urticaria 07/19/2018 Type 1 diabetes mellitus with hyperglycemia 06/17 FAM (obstructive sleep apnea) 01/16/2018 Morbid obesity with BMI of 40.0-44.9, adult 10/17 Hypoventilation 11/08/2017 Pernicious anemia 09/15/2017 Headache 08/14/2017 Dizziness and giddiness 06/27/2017 GITA (generalized anxiety disorder) 05/31/2017 Syncope and collapse 05/14/2017 Type 1 diabetes mellitus without complication Adnexal mass 11/25/2016 Morbid obesity due to excess calories 11/25/2016 Pelvic pain in female 08/13/2016 Endometriosis 08/13/2016 Acquired hallux valgus of left foot 12/24/2014 Ingrown toenail 12/24/2014 Acquired hallux valgus of right foot 12/24/2014 Foot pain, bilateral 12/24/2014 Counseling and coordination of care 12/11/2013 Type 1 diabetes mellitus 05/16/2013 Diabetes 11/16/2012 Overview (12/11/2019): possible pancreas injury with sepsis Essential hypertension Migraine Stiff person syndrome Esophageal reflux Hearing loss Resolved Problems Problem Noted Date Diagnosed Date Resolved Date Acquired hypothyroidism 01/23/202010/2019 Type 2 diabetes mellitus wit hout complication, with long-term current use of insulin 01/18/2017 01/18/2017 Weakness 04/04/2016 06/18/2016 Paresthesia 04/04/2016 06/18/2016 Diabetes 02/19/2013 Encounters Date Type Department Care Team Description 08/30/2024 Telephone [facility] Palliative Medicine [address] [place] [phone] [place] [id number]; Initial Consult 08/24/[address] [place] [address] [address] [place] [address] Basim White MD Orders 08/14/2024 Get Medical Advice Family Medicine [address] [address] Basim White MD Testing 08/14/2024 Refill Family [address] [address] Basim White MD Refill Request 08/07/2024 8:55 AM EDT [facility] [address] [place] [address] Annetta Cain, 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 Itching in the vaginal area (Primary Dx) 08/07/2024 Travel 08/02/2024 Get Medical Advice [address] [address] Basim White MD Pt for Diana 08/01/2024 Refill Pulmonary Medicine [address] [place] [address] Fidelia Sherman MD Refill Request 08/01/[address] [address] Christiana Sims PA-C Refill Request 08/01/2024 Refill Family [address] [address] Pascale Kc, 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 Refill Request 08/01/2024 Refill Endocrinology [address] [place] [address] Jose Saeed MD Refill Request 08/01/2024 Refill Endocrinology [place] [address] [place] [phone] Zaira Dupont MD Refill Request 08/01/2024 Refill Family [address] [address] Basim White MD Refill Request 07/30/2024 Telephone Neurology [address] [place] [address] Teagan Peacock MD Appointment (Called to see if pt wanted to come in sooner for appt today) 07/27/2024 Patient Msg Neurology [address] [place] [address] Provider, [facility] Ketamine infusions 07/24/2024 Patient Msg [facility] [address] [address] Teagan Peacock MD Appointment Request 07/22/[address] [address] Basim White MD Results; Consult 07/20/2024 Patient [facility] [address] [place] [address] Shilpa Sanchez PA-C Tizanidine Refill 07/20/[address] [address] Shilpa Sanchez PA-C Refill Request 07/16/2024 3:00 PM EDT [facility] Endocrinology [address] [place] [address] Jose Saeed MD Type 1 diabetes mellitus with hyperglycemia (HCC) (Primary Dx); Hypothyroidism, unspecified type; Obstructive sleep apnea syndrome; Morbid obesity with BMI of 40.0-44.9, adult (HCC) 07/10/2024 7:40 AM EDT [address] [address] Basim White MD Slurred speech (Primary Dx); BMI 40.0-44.9, adult (HCC); Diabetic polyneuropathy associated with type 2 diabetes mellitus (HCC); Dysphagia, unspecified type; Numbness and tingling; Hypothyroidism, acquired; Lumbar pain 07/10/2024 Telephone Endocrinology [place] [phone] [place] [phone] Zaira Dupont MD [facility] for Last Office Visit 07/10/2024 Get Medical Advice [facility] [address] [address] Basim Wihte MD Question 07/10/2024 Travel 06/16/2024 Refill [facility] [place] [address] [address] Christiana Sims PA-C Refill Request from Last 3 Months Immunizations Immunization Administration Dates Next Due COVID-19 original vaccine, a ge 12+ yr, monovalent (Extended [facility] - PURPLE TOP) 08/16/2020,07/26/2020 COVID-19 vaccine, age 12+ yr (PFIZER-BIONTECH COMIRNATY) 06/20/2023 influenza (IIV4) vaccine, ag e 6 mo - 64 yr, quadrivalent (AFLURIA, FLULAVAL, FLUZONE) 01/19/2019 influenza vaccine, unspecified formulation 02/11 measles mumps rubella (MMR) vaccine (M-M-R II, PRIORIX) 05/28/1992 pneumococcal polysaccharide (PPV23) vaccine, 23 valent (PNEUMOVAX 23) 06/18/2016 tetanus diphtheria (Td) vacc ine, adult, unspecified formulation 10/01/1996 tetanus diphtheria pertussis (Tdap) vaccine, age 7+ yr (ADACEL, BOOSTRIX) 06/18/2016 Family History Medical History Relation Comments ADD Daughter Cancer Father kidney Diabetes Father Heart Father No Known Problems Half-brother No Known Problems Half-sister Parkinson's Maternal Grandfather Seizures Maternal Grandfather Skin Cancer Maternal Grandfather Stroke Maternal Grandfather Asthma Maternal Grandmother COPD Maternal Grandmother Ehler's Danlos Syndrome Maternal Grandmother Osteoporosis Maternal Grandmother Depression Mother Diabetes Mother diagnosed in lat e 30s/early 40s Heart Mother Hypertension Mother Chrohn's Paternal Grandfather Coronary Artery Disease Paternal Grandfather Psychiatry Paternal Grandfather No Known Problems Sister bipolar Son Multiple Sclerosis No Family History Rheumatologic disease No Family History Relation Status Comments Daughter Father Half-brother Alive Half-sister Alive Maternal Grandfather Maternal Grandmother Mother Alive Paternal Grandfather Paternal Grandmother Sister Alive Son Social History Tobacco Use Types Packs/Day Years Used Date Smoking Tobacco: Never Smokeless Tobacco: Never Tobacco Cessation:Counseling Given: Not Answered Alcohol Use Standard Drinks/Week Comments Yes 0 (1 standard drink = 0.6 oz pur e alcohol) rarely [facility] Utilities Answer Date Recorded In the [...] often do you attend chur ch or christian services? More than 4 times per year 07/10/2024 Do you belong to any clubs o r organizations such as bahai groups, unions, fraternal or athletic groups, or [...] Answer Date Recorded PHQ-2 score 6 07/10/2024 [facility] [place] of Occupat ional Health - Occupational Stress [...] [place] [facility] (including now)? No 06/20/2023 Housing Stability Vital [...] is lower risk 7 08/26/2022 Data from: https://www.neighborhoodatlas.medicine.[facility].edu/. Last address used for calculation [address] [...] Industry Job Start Date Job End Date [employer] Not on file Not on file Not on file disability since 07/2015 (off work since 11/2013) Not on file Not on file Not on file Last Filed Vital Signs Vital Sign Reading Time Taken Comments Blood Pressure 108/64 06/21/2023 7:48 AM EST Pulse 66 06/21/2023 7:48 AM EST Temperature 36.9 C (98.5 F) 07/22/2023 2:29 PM EDT Respiratory Rate 18 06/21/2023 7:48 AM EST Oxygen Saturation 94% 06/21/2023 7:48 AM EST Inhaled Oxygen Concentration - - Weight 122.2 kg (269 lb 6.4 oz) 06/21/2023 6:24 AM EST Height 172.7 cm (5' 8 ) 06/18/2023 10:5 7 PM EST Body Mass Index 40.96 06/18/2023 10:57 PM EST Plan of Treatment Upcoming Encounters Date Type Department Care Team (Latest Contact Info) Description 09/24/2024 6:00 PM EDT [address] [address] Basim White MD [address] [place] [address] 3 month follow up 11/28/2024 9:40 AM EDT [facility] Endocrinology [place] [address] [place] [phone] [place] [address] [address] Type one diabetes pump and cgm follow up 12/20/2024 4:00 PM EDT [address] [address] Christiana Sims PA-C [address] [place] [address] [place] [address] 6 Month follow up and yearly physical 03/04/2025 5:20 PM EST Office Visit [facility] [address] [place] [address] Basim White MD [address] [place], [place] [phone] 12 month follow up Health Maintenance Due Date Last Done Comments BP Controlled (<130/80) 1998 Pneumococcal Vaccine (2 of 2 - PCV) 06/18/2017 06/18/2016 Diabetic Foot Exam 10/10/2019 10/09/2018, 0 09/15/2017, 05/31/2017, Additional history exists Mammogram Screening 2020 02/01/2018, 8 Dilated Retinal Exam 01/30/2021 01/31/2020, 03/07/2018, 05/10/2016, Additional history exists Covid-19 Vaccine (2023- 5 season) 2023 06/20/2023, 06/01/2021, 08/16/2020, Additional history exists LDL Cholesterol 06/18/2024 06/19/2023, 1006/2021, 09/02/2021, Additional history exists HbA1C 11/22/2024 05/25/2024, 08/2 05/2023, 06/19/2023, Additional history exists Influenza Vaccine (Season Ended) 2024 02/12/2020, 01/19/2019, 01/19/2019, Additional history exists Urine Albumin:Creatinine Ratio 05/25/2025 0 05/25/2024, 09/18/2021, 01/16/2019, Additional history exists Annual PCP Team Chronic Dise ase Visit 07/10/2025 07/10/2024 DTaP,Tdap,Td Vaccine (3 - Td or Tdap) 06/18/2026 06/18/2016, 10/01/1996 Cervical Cancer Screening Discontinued 05/21/2012 Hepatitis C Screening Completed 01/25/2014 HIV Screening Completed 09/01/2015 Hepatitis B Vaccine Discontinued Goals Goal Patient Goal Type Associated Problems [...] on date: December 11, 2013 MORENA JARA, storm chaser Procedure Name Priority Date/Time Associated Diagnosis Comments HEMOGLOBIN A1C Routine 05/25/2024 1:43 PM EST Medication management ALBUMIN/CREATININE RATIO, URINE Routine 05/25/2024 1:42 PM EST Type 1 diabetes mellitus with hyperglycemia (HCC) LIPID PANEL, FASTING Routine 06/19/2023 4:10 AM EST [facility] DIAGNOSTIC BILATERAL Routine 02/01/2018 12:49 PM EDT HIV 1/2 COMBO WITH REFLEX TO DIFFERENTIATION Routine 09/01/2015 2:16 PM EDT Hyperreflexia HEP REMOTE PANEL BL Routine 01/25/2014 1 0:39 AM EDT Myalgia Arthralgia Fatigue Diabetes mellitus (HCC) Fibromyalgia from Last 3 Months or Most Recently Relevant to Health Maintenance Results * (ABNORMAL) HEMOGLOBIN A1C (05/25/2024 1:43 PM EST) Hemoglobin A1C 7.8(H) 4.3 - 5.6 % 05/26/2024 5:53 PM EST [facility] Comment:[place] Diabetes As sociation guidelines indicate that patients with HgbA1c in the range 5.7-6.4% are at increased risk for development of diabetes, and intervention by lifestyle modification may be beneficial. HgbA1c greater or equal to 6.5% is considered diagnostic of diabetes. Estimated Average Glucose 177 mg/dL 05/26/2024 5:53 PM EST [facility] Comment:eAG: (Estimated aver age glucose) is a calculated value from HgbA1c and is field sales representative of the average blood glucose level in the last 2-3 month period. Blood BLOOD SPECIMEN / Unknown Venipuncture / Unknown 05/25/2024 1:43 PM EST 05/25/2024 1:43 PM EST us Basim White MD LABORATORY Final Result [facility] [address] [place] [address], * ALBUMIN/CREATININE RATIO, URINE (05/25/2024 1:42 PM EST) Creatinine, Ur Random (UCRR) 143.1 20.0 - 300.0 mg/dL 05/26/2024 3:08 PM EST [facility] Albumin, Urine Random <12.0 mg/L 05/26/2024 3:08 PM EST [facility] Albumin/Creat Ratio <8 <30 mg/g 05/26/2024 3:08 PM EST [facility] Comment: Adult Male and Female Nephrotic Criteria: <30 mg/g is considered normal to mildly increased 30-300 mg/g is considered moderately increased >300 mg/g is considered severely increased KDIGO. (2013). KDIGO 2012 Clinical Practice Guideline for the Evaluation and Management of Chronic Kidney Disease. Official Journal of the International Society of Nephrology, 3(1), 1-150. Urine URINE SPECIMEN / Unknown 05/25/2024 1:42 PM EST 05/25/2024 2:10 PM EST us Zaira Dupont MD LABORATORY Final Result [facility] [address] [facility] [address]k [address] [place] [address], [place] * LIPID PANEL BASIC (06/19/2023 4:10 AM EST) Cholesterol, Total 158 <200 mg/dL 06/19/2023 5:01 AM [facility] Comment: <200 mg/dL, Desirable 200-239 mg/dL, Borderline high >239 mg/dL, High Triglyceride 147 <150 mg/dL 06/19/2023 5:01 AM [facility] Comment: <150 mg/dL, Normal 150-199 mg/dL, Borderline high 200-499 mg/dL, High >499 mg/dL, Very high HDL Cholesterol 51 >39 mg/dL 5:01 AM [facility] Comment: 40-59 mg/dL, Acceptable >59 mg/dL, High: Negative risk factor for coronary heart disease <40 mg/dL, Low: Positive risk factor for coronary heart disease Non HDL Cholesterol 107 <130 mg/dL 06/19/2023 5:01 AM [facility] Comment: <130 mg/dL, Optimal 130-159 mg/dL, Near optimal/above optimal 160-189 mg/dL, Borderline high 190-219 mg/dL, High >219 mg/dL, Very high Secondary prevention optimal non HDL Cholesterol levels are recommended to be <100 mg/dL Fasting Time Unk hrs 06/19/2023 5:01 AM [facility] VLDL Cholesterol 29 <30 mg/dL 06/19/19 5:01 AM [facility] TC:HDL Ratio 3.10 <5.10 06/19/2023 5:01 AM [facility] LDL Cholesterol, Calculated 78 <100 mg/dL 06/19/2023 5:01 AM [facility] Comment: <100 mg/dL, Optimal 100-129 mg/dL, Near optimal/above optimal 130-159 mg/dL, Borderline high 160-189 mg/dL, High >189 mg/dL, Very high Secondary prevention optimal LDL Cholesterol levels are recommended to be < 70 mg/dL LDL:HDL Ratio 1.53 <2.54 06/19/2023 5:01 AM [facility] Comment: Reference: 1. National Cholesterol Education Program ATP III Guideline At-A-Glance Quick Desk Reference: National Heart, Lung, and Blood [place]. National Institutes of Health. 2001: NIH Publication No. 01-3305. 2. An International Atherosclerosis Society position paper: global recommendations for the management of dyslipidemia: executive summary, Atherosclerosis. 2014: 232(2):410-413. Blood BLOOD SPECIMEN / Unknown Venipuncture / Unknown 06/19/2023 4:10 AM EST 06/19/2023 4:31 AM EST us Patricia Ceja HOME SCHOOL TEACHER.[facility] Final Re sult [facility] [address] [place] [address], [place] * [facility] (02/01/2018 12:49 PM EDT) Anatomical Region Laterality Modality Bilateral Other 02/01/2018 12:4 9 PM EDT Impressions 02/01/2018 1:01 PM EDT IMPRESSION: NEGATIVE There is no sonographic evidence of malignancy. There is no abnormality seen in the right breast to correspond with the palpable abnormality indicated by a BB marker at 5 o'clock which is consistent with normal fibroglandular tissue, however, clinical correlation and clinical followup are recommended. Follow-up with ACR/NCCN guidelines. Janki larson/nitin:02/01/2018 13:00:30 Manual Plate Filler: Rubi ELENA)(M), [facility] Multiple national specialty organizations have released breast cancer screening guidelines for women at average risk for developing breast cancer - guidelines that are based on both evidence and opinion, yet differ on when to start and how often to screen for breast cancer. With representation from Breast Imaging, Internal Medicine, Women's Health, Family Medicine, and Medical/Surgical Oncology, the [facility] has carefully reviewed the data and reached the following consensus: 1) All women should engage in shared decision-making with their providers to decide when to start and how often to screen; 2) All women should have the opportunity to start screening mammography at age 40; 3) For women ages 45-55, we recommend annual screening mammograms; 4) For women ages 55 and over, we support both the transition from an annual to a biennial interval if this aligns more with patient's values and preferences, or continuation with annual screening; 5) All women should discuss with their providers when to stop screening mammograms. OVERALL STUDY BIRADS: 1 Negative Research Subject: Nitin Transcribe Date/Time: Feb 01 2018 12:47P Dictated by: JANKI KWON MD This examination was interpreted and the report reviewed and electronically signed by: JANKI KWON MD on Feb 01 2018 1:00PM EST Narrative 02/01/2018 1:01 PM EDT * * *Final Report* * * DATE OF EXAM: Feb 01 2018 12:49PM [facility] - [facility] JOSEF / PROCEDURE REASON: multiple diagnoses * * * * Physician Interpretation * * * * RESULT: #[id number] - [facility] RT UNILATERAL RIGHT DIGITAL DIAGNOSTIC MAMMOGRAM WITH CAD: 02/01/2018 HISTORY: /Palpable lump right breast. /The patient is also due for her annual bilateral mammogram. RESULT: TECHNIQUE: The study was acquired using full field digital technology and interpreted from soft copy. Current study was also evaluated with a Computer Aided Detection (CAD). No prior exams were available for comparison. There are scattered fibroglandular elements in the right breast. No significant masses, calcifications, or other findings are seen in the breast. INCOMPLETE: NEEDS ADDITIONAL IMAGING EVALUATION There is no abnormality seen in the right breast to correspond with the palpable abnormality indicated by a BB marker, however, ultrasound is recommended. #[id number] - [facility] US BREAST LTD RT ULTRASOUND OF RIGHT BREAST: 02/01/2018 RESULT: No prior exams were available for comparison. Real-time ultrasound of the right breast was performed. No abnormalities were seen sonographically in the right breast. Procedure Note Provider, [facility] [place] - 02/01/2018 * * *Final Report* * * DATE OF EXAM: Feb 01 2018 12:49PM [facility]20 - [facility] DIAGNOSTIC JOSEF / PROCEDURE REASON: multiple diagnoses * * * * Physician Interpretation * * * * RESULT: #[id number] - [facility] DIAGNOSTIC RT UNILATERAL RIGHT DIGITAL DIAGNOSTIC MAMMOGRAM WITH CAD: 02/01/2018 HISTORY: /Palpable lump right breast. /The patient is also due for her annual bilateral mammogram. RESULT: TECHNIQUE: The study was acquired using full field digital technology and interpreted from soft copy. Current study was also evaluated with a Computer Aided Detection (CAD). No prior exams were available for comparison. There are scattered fibroglandular elements in the right breast. No significant masses, calcifications, or other findings are seen in the breast. INCOMPLETE: NEEDS ADDITIONAL IMAGING EVALUATION There is no abnormality seen in the right breast to correspond with the palpable abnormality indicated by a BB marker, however, ultrasound is recommended. #[id number] - [facility] US BREAST LTD RT ULTRASOUND OF RIGHT BREAST: 02/01/2018 RESULT: No prior exams were available for comparison. Real-time ultrasound of the right breast was performed. No abnormalities were seen sonographically in the right breast. IMPRESSION IMPRESSION: NEGATIVE There is no sonographic evidence of malignancy. There is no abnormality seen in the right breast to correspond with the palpable abnormality indicated by a BB marker at 5 o'clock which is consistent with normal fibroglandular tissue, however, clinical correlation and clinical followup are recommended. Follow-up with ACR/NCCN guidelines. Janki larson/nitin:02/01/2018 13:00:30 Manual Plate Filler: Rubi Syed RT(R)(M), [facility] Multiple national specialty organizations have released breast cancer screening guidelines for women at average risk for developing breast cancer - guidelines that are based on both evidence and opinion, yet differ on when to start and how often to screen for breast cancer. With representation from Breast Imaging, Internal Medicine, Women's Health, Family Medicine, and Medical/Surgical Oncology, the [facility] has carefully reviewed the data and reached the following consensus: 1) All women should engage in shared decision-making with their providers to decide when to start and how often to screen; 2) All women should have the opportunity to start screening mammography at age 40; 3) For women ages 45-55, we recommend annual screening mammograms; 4) For women ages 55 and over, we support both the transition from an annual to a biennial interval if this aligns more with patient's values and preferences, or continuation with annual screening; 5) All women should discuss with their providers when to stop screening mammograms. OVERALL STUDY BIRADS: 1 Negative Research Subject: Nitin Transcribe Date/Time: Feb 01 2018 12:47P Dictated by: JANKI KWON MD This examination was interpreted and the report reviewed and electronically signed by: JANKI KWON MD on Feb 01 2018 1:00PM EST us Basim White MD [facility] Final Result * HIV 1,2 COMBO (AG/AB) (09/01/2015 2:16 PM EDT) HIV 12 Combo (Ag/Ab) Non Reactive Non Reactive 09/01/2015 9:50 PM EDT [facility] Comment: (NOTE) HIV Information: [place] Rev. Code 3701.243(E): This information has been disclosed to you from confidential records protected from disclosure by state law. You shall make no further disclosure of this information without the specific, written, and informed release of the individual to whom it pertains, or as otherwise permitted by state law. A general authorization for the release of medical or other information is not sufficient for the purpose of the release of HIV test results or diagnoses. Blood specimen (specimen) BLOOD SPECIMEN / Unknown 09/01/2015 2:16 PM EDT 09/01/2015 2:21 PM EDT us Kirstie Sapin MD LABORATORY Final Resu lt [facility] [address] [place] [address] * HEP REMOTE PANEL BL (01/25/2014 10:39 AM EDT) Hep B Core Ab, Total Negative NEGAT [facility] Hep C Antibody IA Negative NEGAT [facility] HBsAg Negative NEGAT [facility] Hep B Surface Ab, Qual Negative NEGAT [facility] Comment:No evidence of antib odies to Hepatitis B surface antigen. Blood specimen (specimen) BLOOD SPECIMEN / Unknown 01/25/2014 10:39 AM EDT 01/25/2014 10:41 AM EDT us Carmita Velazquez MD LABORATORY Final Result [facility] [address] [place] [address] from Last 3 Months or Most Recently Relevant to Health Maintenance Insurance MEDICAID [place] MEDICARE ADVANTAGE HMO Advance Directives Documents on File Type Date Recorded Patient Head Of Sales And Marketing Expl anation Advance Directive(s) 01/18/2017 4:05 PM * Full Code (Latest Code Status on File) Date Activated Date Inactivated Comments 06/18/2023 11:19 PM 06/21/2023 2:59 PM Question Answer Comments Full Code Order Discussed With: Patient and Surr ogate Decision Maker Care Teams Tool Grinder Set Up Operator Gear Relationship Specialty Start Date End Date Basim White MD [facility] [place] [address] PCP - General Family Medicine 08/09/17 Nate Joyce DO Cable Splicing Technician 02/09/13 Paulie Sandra MD [address] [phone] Primary Staff Physician Cardiology 07/04/18 Christiana Sims PA-C [facility] [place] [address] General Administrator Family Medicine 03/26/24 Awa Sanchez PA-C [address] [place] [address] General Administrator Internal Medicine 09/03/24
--- OUTSIDE RECORDS SUMMARY | 2024-09-09 00:50 | XMS_ITS | Encounter Summary ---
Author Organization [facility] Address [address] [place], [place] [address] Care Team Providers Care Plate Glass Installer Name Role Phone Nate Joyce Unavailable [phone] Basim White MD Primary Care Provider Paulie Sandra MD Unavailable Paulie Sandra MD Unavailable Teagan Henriquez RN Unavailable Pascale Kc INDIGO VAT TENDER CLOTH.TRANSIT DRIVER Unavailable Leeanne Balderas INDIGO VAT TENDER CLOTH.TRANSIT DRIVER Unavailable [phone] Juanita Luong PA-C Unavailable Rubi Rodriguez INDIGO VAT TENDER CLOTH.TRANSIT DRIVER Unavailable Christiana Sims PA-C Unavailable Tami Vazquez PA-C Unavailable [phone] Juanita Luong PA-C Unavailable Awa Sanchez PA-C Unavailable Source Comments In the event this information is protected by the Federal Confidentiality of Alcohol and Drug AbusePatient Records regulations: The Federal rules restrict any use of the information to criminally investigate or prosecute any alcohol or drug abuse patient.[facility] Encounter Details Date Type Department Care Team (Late st Contact Info) Description 08/06/2018 Get Medical Advice Family Medicine [place] [address] [place] [address] Basim White MD [address] [place], [place] [phone] RE: Visit Follow Up Question Social History [...] 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 on file [...] Contact Info) Description 09/24/2024 6:00 PM EDT [address] [address] Basim White MD [address] [place] [address] 3 month follow up 11/28/2024 9:40 AM EDT [facility] Endocrinology [place] [address] [place] [address] [place] [address] [address] Type one diabetes pump and cgm follow up 12/20/2024 4:00 PM EDT [address] [address] Christiana Sims PA-C [address] [place] [address] 6 Month follow up and yearly physical 03/04/2025 5:20 PM EST Office Visit [address] [address] Basim White MD [address] [place] [address] 12 month follow up documented as of [...] documented as of this encounter Care Teams Plate Glass Installer Relationship Specialty Start Date End Date Basim White MD [address] [place] [address] PCP - General Family Medicine 08/09/17 Nate Joyce DO Lap Runner 02/09/13 Paulie Sandra MD [address] [phone] Primary Staff Physician Cardiology 07/04/1807/04 Paulie Sandra MD [address] [phone] Primary Staff Physician Cardiology 07/04/18 Teagan Henriquez, RN [address] [place] [phone] Primary Care [employer] Assistant Principal Internal Medicine 06/22/23 07/21/23 Pascale Kc, INDIGO VAT TENDER CLOTH.TRANSIT DRIVER [address] [place] [address] Forge Press Operator Family Medicine 03/26/24 07/04/24 Leeanne Balderas, INDIGO VAT TENDER CLOTH.TRANSIT DRIVER [address] [place] [address] Forge Press Operator Family Medicine 03/26/24 07/04/24 Juanita Luong PA-C [address] [place] [address] Forge Press Operator Family Medicine 03/26/24 07/04/24 Rubi Rodriguez, INDIGO VAT TENDER CLOTH.TRANSIT DRIVER [address] [place] [address] Forge Press Operator Family Medicine 03/26/24 07/04/24 Christiana Sims PA-C [address] [place] [address] Forge Press Operator Family Medicine 03/26/24 Tami Vazquez PA-C [address] [place] [address] Forge Press Operator Family Medicine 06/07/24 07/04/24 Juanita Luong PA-C [address] [place] [address] Forge Press Operator Family Medicine 07/11/24 07/25/24 Awa Sanchez PA-C [facility] [place], [place] [address] Forge Press Operator Internal Medicine 09/03/24 documented as of this encounter
--- OUTSIDE RECORDS SUMMARY | 2024-09-09 00:50 | XMS_ITS | Encounter Summary ---
Author Organization [facility] Address [address] [place], [place] [id number] Care Team Providers Care Contact Lens Fitter Name Role Phone IsiahNate greenfield Cecelia OSBORNE Unavailable [phone] Basim White MD Primary Care Provider [phone] Paulie Sandra MD Unavailable Teagan Henriquez RN Unavailable Pascale Kc TWIST PACKER.REAL ESTATE SPECIALIST Unavailable Leeanne Balderas TWIST PACKER.REAL ESTATE SPECIALIST Unavailable [phone] Juanita Luong PA-C Unavailable Rubi Rodriguez TWIST PACKER.REAL ESTATE SPECIALIST Unavailable Christiana Sims PA-C Unavailable Tami Vazquez PA-C Unavailable [phone] Juanita Luong PA-C Unavailable Awa Sanchez PA-C Unavailable Source Comments In the event this information is protected by the Federal Confidentiality of Alcohol and Drug AbusePatient Records regulations: The Federal rules restrict any use of the information to criminally investigate or prosecute any alcohol or drug abuse patient.[facility] Encounter Details Date Type Department Care Team (Late Contact Info) Description 02/21/2023 Get Medical Advice Family Medicine [place] [address] [place], [place] [phone] Basim White MD [address] [place], [place] [phone] Sjogrens Social History Tobacco Use Types Packs/Day Years [...] How often do you attend methodist or baptist serv ices? Never 05/03/2022 Do you belong [...] Answer Date Recorded PHQ-2 score 6 04/23/2022 [place] of Occupat ional Health - Occupational Stress [...] slept in a longterm (including now)? 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 Not [...] Description 09/24/2024 6:00 PM EDT [facility] Family Medicine [place] [address] [place] [address] Basim White MD [address] [place] [address] 3 month follow up 11/28/2024 9:40 AM EDT [facility] Endocrinology [place] [address] [place] [address] [place] [address] [facility] [address] [place] [address] Type one diabetes pump and cgm follow up 12/20/2024 4:00 PM EDT [facility] [address] [place] [address] Christiana Sims PA-C [address] [place] [address] 6 Month follow up and yearly physical 03/04/2025 5:20 PM EST Office Visit [facility] [address] [place] [address] Basim White MD [address] [place] [address] 12 month follow up documented as of [...] on filedocumented in this encounter Care Teams Contact Lens Fitter Relationship Specialty Start Date End Date Basim White MD [address] [place] [address] PCP - General Family Medicine 08/09/17 Nate Joyce DO Encephalographer 02/09/13 Paulie Sandra MD [address] [phone] Primary Staff Physician Cardiology 07/04/18 Teagan Henriquez, RN [address]000 [place] [address] Primary Care Commercial Lending Assistant Internal Medicine 06/22/23 07/21/23 Pascale Kc APRN.REAL ESTATE SPECIALIST [address] [place] [address] Steam Pipe Fitter Family Medicine 03/26/24 07/04/24 Leeanne Balderas APRN.REAL ESTATE SPECIALIST [address] [place] [address] Steam Pipe Fitter Family Medicine 03/26/24 07/04/24 Juanita Luong PA-C [address] [place] [address] Steam Pipe Fitter Family Medicine 03/26/24 07/04/24 Rubi Rodriguez APRN.REAL ESTATE SPECIALIST [address] [place] [address] Steam Pipe Fitter Family Medicine 03/26/24 07/04/24 Christiana Sims PA-C [address] [place] [address] Steam Pipe Fitter Family Medicine 03/26/24 Tami Vazquez PA-C [address] [place] [address] Steam Pipe Fitter Family Medicine 06/07/24 07/04/24 Juanita Luong PA-C [address] [place] [address] Steam Pipe Fitter Family Medicine 07/11/24 07/25/24 Awa Sanchez PA-C [address] [place] [address] Steam Pipe Fitter Internal Medicine 09/03/24 documented as of this encounter
--- OUTSIDE RECORDS SUMMARY | 2024-09-09 00:50 | XMS_ITS | Encounter Summary ---
Author Organization [facility] Address [address] [place], [place] [address] Care Team Providers Care Swim Instructor Name Role Phone Nate Joyce Unavailable [phone] Basim White MD Primary Care Provider [phone] Paulie Sandra MD Unavailable Paulie Sandra MD Unavailable Teagan Henriquez RN Unavailable Pascale cK ARCHITECT MANAGER.AUXILIARY POWER EQUIPMENT OPERATOR Unavailable Leeanne Balderas ARCHITECT MANAGER.AUXILIARY POWER EQUIPMENT OPERATOR Unavailable [phone] Juanita Luong PA-C Unavailable Rubi Rodriguez ARCHITECT MANAGER.AUXILIARY POWER EQUIPMENT OPERATOR Unavailable Christiana Sims PA-C Unavailable Tami Vazquez PA-C Unavailable [phone] Juanita Luong PA-C Unavailable Awa Sanchez PA-C Unavailable Source Comments In the event this information is protected by the Federal Confidentiality of Alcohol and Drug AbusePatient Records regulations: The Federal rules restrict any use of the information to criminally investigate or prosecute any alcohol or drug abuse patient.[facility] Encounter Details Date Type Department Care Team (Late st Contact Info) Description 10/06/2018 Patient Msg Endocrinology [address] [place] [address] [place] [address] [place] [address] RE: Appointment Request Social History Tobacco Use Types [...] 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 Not [...] Info) Description 09/24/2024 6:00 PM EDT [address] [address] Basim White MD [address] [place] [address] 3 month follow up 11/28/2024 9:40 AM EDT [facility] Endocrinology [place] [address] [place] [address] [place] [address] [address] Type one diabetes pump and cgm follow up 12/20/2024 4:00 PM EDT [address] [address] Christiana Sims PA-C [address] [place] [address] 6 Month follow up and yearly physical 03/04/2025 5:20 PM EST Office Visit [address] [address] Basim White MD [address] [place] [address] 12 month follow up documented as of [...] documented as of this encounter Care Teams Swim Instructor Relationship Specialty Start Date End Date Basim White MD [address] [place] [address] PCP - General Family Medicine 08/09/17 Nate Joyce DO Drafter Refrigeration 02/09/13 Paulie Sandra MD [address] [address] Primary Staff Physician Cardiology 07/04/1807/04 Paulie Sandra MD [address] [phone] Primary Staff Physician Cardiology 07/04/18 Teagan Henriquez, RN [address]000 [place] [address] Primary Care Radiology Director Internal Medicine 06/22/23 07/21/23 Pascale Kc, ARCHITECT MANAGER.AUXILIARY POWER EQUIPMENT OPERATOR [address] [place] [address] Court Magistrate Family Medicine 03/26/24 07/04/24 Leeanne Balderas, ARCHITECT MANAGER.AUXILIARY POWER EQUIPMENT OPERATOR [address] [place] [address] Court Magistrate Family Medicine 03/26/24 07/04/24 Juanita Luong PA-C [address] [place] [address] Court Magistrate Family Medicine 03/26/24 07/04/24 Rubi Rodriguez, ARCHITECT MANAGER.AUXILIARY POWER EQUIPMENT OPERATOR [address] [place] [address] Court Magistrate Family Medicine 03/26/24 07/04/24 Christiana Sims PA-C [address] [place] [address] [address] [address] Magistrate Family Medicine 03/26/24 Tami Vazquez PA-C [address] [place] [address] Court Magistrate Family Medicine 06/07/24 07/04/24 Juanita Luong PA-C [address] [place] [address] Court Magistrate Family Medicine 07/11/24 07/25/24 Awa Sanchez PA-C [address] [place], [place] [address] Court Magistrate Internal Medicine 09/03/24 documented as of this encounter
--- OUTSIDE RECORDS SUMMARY | 2024-09-09 00:50 | XMS_ITS | Encounter Summary ---
Author Organization [facility] Address [address] [place] [address] Care Team Providers Care Interactive Media Marketing Strategist Name Role Phone IsiahNate greenfield Unavailable [phone] Basim White MD Primary Care Provider Paulie Sandra MD Unavailable [phone] Christiana Sims PA-C Unavailable Juanita Luong PA-C Unavailable [phone] Awa Sanchez PA-C Unavailable [phone] Source Comments In the event this information is protected by the Federal Confidentiality of Alcohol and Drug AbusePatient Records regulations: The Federal rules restrict any use of the information to criminally investigate or prosecute any alcohol or drug abuse patient.[facility] Encounter Details Date Type Department Care Team (Late st Contact Info) Description 07/24/2024 Patient [facility] [address] [address] [place] [address] [place] [address] Appointment Request Social History Tobacco Use Types [...] Never 07/10/2024 How often do you attend [facility] or mosque services? More than 4 [...] Answer Date Recorded PHQ-2 score 6 07/10/2024 [facility] [place] of Occupat ional Health - Occupational Stress [...] or slept in a penitentiary (including now)? No 06/20/2023 Housing Stability Vital [...] is lower risk 7 08/26/2022 Data from: https://www.neighborhoodatlas.medicine.[facility].edu/. Last address used for calculation [address] [...] Industry Job Start Date Job End Date [employer] Not on file Not on file Not [...] Info) Description 09/24/2024 6:00 PM EDT [facility] Family Medicine [place] [address] [place] [address] Basim White MD [address] [place] [address] 3 month follow up 11/28/2024 9:40 AM EDT [facility] Endocrinology [place] [address] [place] [address] [place] [address] [facility] [address] [place] [address] Type one diabetes pump and cgm follow up 12/20/2024 4:00 PM EDT [facility] [address] [place] [address] Christiana Sims PA-C [address] [place] [address] 6 Month follow up and yearly physical 03/04/2025 5:20 PM EST Office Visit [address] [address] Basim White MD [address] [place] [address] 12 month follow up documented as of [...] on filedocumented in this encounter Care Teams Interactive Media Marketing Strategist Relationship Specialty Start Date End Date Basim White MD [address] [place] [address] PCP - General Family Medicine 08/09/17 Nate Joyce DO Voice Writing Reporter 02/09/13 Paulie Sandra MD [address] [phone] Primary Staff Physician Cardiology 07/04/18 Christiana Sims PA-C [address] [place] [address] Kidney Trimmer Family Medicine 03/26/24 Juanita Luong PA-C [address] [place] [address] Kidney Trimmer Family Medicine 07/11/24 07/25/24 Awa Sanchez PA-C [facility] [place] [address] Kidney Trimmer Internal Medicine 09/03/24 documented as of this encounter
--- OUTSIDE RECORDS SUMMARY | 2024-09-09 00:50 | XMS_ITS | Encounter Summary ---
Author Organization [facility] Address [address] [place], [place] [id number] Care Team Providers Care Test Rack Operator Name Role Phone IsiahNate greenfield Cecelia OSBORNE Unavailable [phone] Basim White MD Primary Care Provider Paulie Sandra MD Unavailable Teagan Henriquez RN Unavailable Pascale Kc CUT OFF SAW SET UP OPERATOR.TILE BURNER Unavailable Leeanne Balderas CUT OFF SAW SET UP OPERATOR.TILE BURNER Unavailable [phone] Juanita Luong PA-C Unavailable Rubi Rodriguez CUT OFF SAW SET UP OPERATOR.TILE BURNER Unavailable Christiana Sims PA-C Unavailable Tami Vazquez PA-C Unavailable [phone] Juanita Luong PA-C Unavailable Awa Sanchez PA-C Unavailable Source Comments In the event this information is protected by the Federal Confidentiality of Alcohol and Drug AbusePatient Records regulations: The Federal rules restrict any use of the information to criminally investigate or prosecute any alcohol or drug abuse patient.[facility] Encounter Details Date Type Department Care Team (Late Contact Info) Description 06/02/2023 Patient Msg Pain Management [address] [place], [place] [id number] Belen Hernandez MD [address] [place] [address] Appointment Request Social History Tobacco Use Types Packs/Day Years Used Date Smoking Tobacco: Never Smokeless Tobacco: Never Alcohol Use Standard Drinks/Week Comments Yes 0 (1 standard drink = 0.6 oz pur e alcohol) rarely [facility] Utilities Answer Date Recorded In the past 12 months has th e electric, gas, oil, or water company threatened to shut off services in your home? Yes 05/20/2023 Social Connection and Isolat ion Panel [NHANES] Answer Date Recorded In a typical week, how many times do you talk on the phone with family, friends, or neighbors? Patient declined 05/20/2023 How often do you get togethe r with friends or relatives? Never 05/20/2023 How often do you attend [facility] ch or anabaptist services? More than 4 [...] housing, medical care, and heating? Very hard 05/20/2023 PHQ-2 Answer Date Recorded PHQ-2 score 6 04/23/2022 [facility] [place] of Occupat ional Health - Occupational Stress [...] the money to buy more. Often true 05/20/19 24 Within the past 12 months, t he food you bought just didn't last and you didn't have money to get more. Often true 05/20/2023 PRAPARE - Transportation Answer Date Re corded In the past 12 months, has l ack of transportation kept you from medical appointments or from getting medications? Yes 05/2023 In the past 12 months, has l ack of transportation kept you from meetings, work, or from getting things needed for daily living? Yes 05/20/2023 Housing Stability Vital Sign Answer Steve e Recorded In the last 12 months, was t here a time when you were not able to pay the mortgage or rent on time? Yes 05/20/2023 In the last 12 months, how many places have you lived? 1 05/20/2023 In the last 12 months, was t here a time when you did not have a steady place to sleep or slept in a chcf (including now)? No 05/20/2023 Area Deprivation Index Answer Date Sergio rded National Score (1-100), lower number is lower ri sk 79 08/26/2022 State Score (1-10), lower number is lower risk 7 08/26/2022 Data from: https://www.neighborhoodatlas.medicine.[facility].edu/. 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 Endocrinology [place] [address] [place] [address] [place] [address] [address] Type one diabetes pump and cgm follow up 12/20/2024 4:00 PM EDT [facility] Medicine [place] [address] [place] [address] Christiana Sims PA-C 450 [place] [address] 6 Month follow up and yearly physical 03/04/2025 5:20 PM EST Office Visit [facility] 450 [place] [address] Basim White MD [address] [place] [address] 12 month follow up documented as of [...] on filedocumented in this encounter Care Teams Test Rack Operator Relationship Specialty Start Date End Date Basim White MD 450 [place] [address] PCP - General Family Medicine 08/09/17 Nate Joyce DO Senior Medical Transcriptionist 02/09/13 Paulie Sandra MD [address] [address] Primary Staff Physician Cardiology 07/04/18 Teagan Henriquez, JIE [address]000 [place] [address] Primary Care Keeper Helper Internal Medicine 06/22/23 07/21/23 Pascale Kc, CUT OFF SAW SET UP OPERATOR.TILE BURNER [address] [place] [address] Services Delivery Driver Family [facility] 03/26/24 07/04/24 Leeanne Balderas, CUT OFF SAW SET UP OPERATOR.TILE BURNER [address] [place] [address] [facility] Family [facility] 03/26/24 07/04/24 Juanita Luong PA-C [address] [place] [address] Services Delivery Driver Family Medicine 03/26/24 07/04/24 Rubi Rodriguez APRN.TILE BURNER [address] [place] [address] Services Delivery Driver Family Medicine 03/26/24 07/04/24 Christiana Sims PA-C [address] [place] [address] Services Delivery Driver Family Medicine 03/26/24 Tami Vazquez PA-C [address] [place] [address] Services Delivery Driver Family Medicine 06/07/24 07/04/24 Juanita Luong PA-C [address] [place] [address] Services Delivery Driver Family Medicine 07/11/24 07/25/24 Awa Sanchez PA-C [address] [place] [address] Services Delivery Driver Internal Medicine 09/03/24 documented as of this encounter
--- OUTSIDE RECORDS SUMMARY | 2024-09-09 00:50 | XMS_ITS | Encounter Summary ---
Author Organization [facility] Address [address] [place], [place] [id number] Care Team Providers Care Car Icer Name Role Phone IsiahNate greenfield Cecelia OSBORNE Unavailable [phone] Basim White MD Primary Care Provider Paulie Sandra MD Unavailable [phone] Teagan Henriquez RN Unavailable Pascale Kc TECHNICAL ADMINISTRATOR.PINKED EDGE SEWING MACHINE OPERATOR Unavailable Leeanne Balderas TECHNICAL ADMINISTRATOR.PINKED EDGE SEWING MACHINE OPERATOR Unavailable [phone] Juanita Luong PA-C Unavailable Rubi Rodriguez TECHNICAL ADMINISTRATOR.PINKED EDGE SEWING MACHINE OPERATOR Unavailable Christiana Sims PA-C Unavailable Tami Vazquez PA-C Unavailable [phone] Juanita Luong PA-C Unavailable Awa Sanchez PA-C Unavailable Source Comments In the event this information is protected by the Federal Confidentiality of Alcohol and Drug AbusePatient Records regulations: The Federal rules restrict any use of the information to criminally investigate or prosecute any alcohol or drug abuse patient.[facility] Encounter Details Date Type Department Care Team (Kathryn saini Contact Info) Description 11/29/2022 Patient Msg Family Medicine Radha Rose [address] [place] [address] Provider, Ccf Appointment Needed Social History Tobacco Use Types Packs/Day Years [...] Never 05/03/2022 How often do you attend orthodox or buddhism serv ices? Never 05/03/2022 Do you belong [...] Answer Date Recorded PHQ-2 score 6 04/23/2022 [facility] - Occupational Stress Questionnaire Answer Date [...] slept in a correction (including now)? No 05/03/2022 Area Deprivation Index [...] Industry Job Start Date Job End Date [employer] Not on file Not on file [...] Contact Info) Description 09/24/2024 6:00 PM EDT [facility] Medicine [place] [address] [place] [address] Basim White MD [address] [place] [address] 3 month follow up 11/28/2024 9:40 AM EDT [facility] Endocrinology [place] [address] [place] [phone] [place] [address] [address] Type one diabetes pump and cgm follow up 12/20/2024 4:00 PM EDT [facility] [address] [place] [address] Christiana Sims PA-C 450 [place] [address] 6 Month follow up and yearly physical 03/04/2025 5:20 PM EST Office Visit [facility] [address] [place] [address] Basim White MD 450 [place] [address] 12 month follow up documented as of [...] filedocumented in this encounter Care Teams Car Icer Relationship Specialty Start Date End Date Basim White MD [address] [place] [address] PCP - General Family Medicine 08/09/17 Nate Joyce DO Registered Nurse Step Down 02/09/13 Paulie Sandra MD [address] [address] Primary Staff Physician Cardiology 07/04/18 Teagan Henriquez RN 6000 [place] [address] Primary Care Data Miner Internal Medicine 06/22/23 07/21/23 Pascale Kc, TECHNICAL ADMINISTRATOR.PINKED EDGE SEWING MACHINE OPERATOR [address] [place] [address] [facility] 03/26/24 07/04/24 Leeanne Balderas APRN.PINKED EDGE SEWING MACHINE OPERATOR [address] [place] [address] Retail Wireless Sales Consultant Family Medicine 03/26/24 07/04/24 Juanita Luong PA-C [address] [place] [address] Retail Wireless Sales Consultant Family Medicine 03/26/24 07/04/24 Rubi Rodriguez APRN.PINKED EDGE SEWING MACHINE OPERATOR [address] [place] [address] Retail Wireless Sales Consultant Family Medicine 03/26/24 07/04/24 Christiana Sims PA-C [address] [place] [address] Retail Wireless Sales Consultant Family Medicine 03/26/24 Tami Vazquez PA-C [address] [place] [address] [facility] Family Medicine 06/07/24 07/04/24 Juanita Luong PA-C [address] [place] [address] [facility] Family Medicine 07/11/24 07/25/24 Awa Sanchez PA-C [address] [place] [id number] [facility] Internal Medicine 09/03/24 documented as of this encounter
--- OUTSIDE RECORDS SUMMARY | 2024-09-09 00:50 | XMS_ITS | Encounter Summary ---
Author Organization [facility] Address [address] [place], [place] [id number] Care Team Providers Care Muffler Hand Name Role Phone Nate Joyce Unavailable [phone] Basim White MD Primary Care Provider Paulie Sandra MD Unavailable Paulie Sandra MD Unavailable Teagan Henriquez RN Unavailable Pascale Kc LABORER CH[employer]ARM.YARD WORKER Unavailable Leeanne Balderas LABORER CH[employer]EN [employer]ARM.YARD WORKER Unavailable [phone] Juanita Luong PA-C Unavailable Rubi Rodriguez LABORER CHICKEN FARM.YARD WORKER Unavailable Christiana Sims PA-C Unavailable Tami Vazquez PA-C Unavailable [phone] Juanita Luong PA-C Unavailable Awa Sanchez PA-C Unavailable Source Comments In the event this information is protected by the Federal Confidentiality of Alcohol and Drug AbusePatient Records regulations: The Federal rules restrict any use of the information to criminally investigate or prosecute any alcohol or drug abuse patient.[facility] Encounter Details Date Type Department Care Team (Late st Contact Info) Description 09/04/2018 Get Medical Advice Endocrinology [address] [place] [address] [place] [address] [place] [address] RE: Upcoming Appointment Question Social History Tobacco [...] Industry Job Start Date Job End Date [place] Not on file Not on file [...] Info) Description 09/24/2024 6:00 PM EDT [address] [address] Basim White MD [address] [place] [address] 3 month follow up 11/28/2024 9:40 AM EDT [facility] Endocrinology [place] [address] [place] [address] [place] [address] [address] Type one diabetes pump and cgm follow up 12/20/2024 4:00 PM EDT [address] [address] Christiana Sims PA-C [address] [place] [address] 6 Month follow up and yearly physical 03/04/2025 5:20 PM EST Office Visit [address] [address] Basim White MD [address] [place] [address] 12 month follow up documented as of [...] documented as of this encounter Care Teams Muffler Hand Relationship Specialty Start Date End Date Basim White MD [address] [place] [address] PCP - General Family Medicine 08/09/17 Nate Joyce DO Heater Helper Forge 02/09/13 Paulie Sandra MD [address] [address] Primary Staff Physician Cardiology 07/04/1807/04 Paulie Sandra MD [address] [address] Primary Staff Physician Cardiology 07/04/18 Teagan Henriquez, RN 6000 [place] [address] Primary Care Billing Administrator Internal Medicine 06/22/23 07/21/23 Pascale cK, LABORER [employer].YARD WORKER [address] [place] [address] Pony Roll Finisher Family Medicine 03/26/24 07/04/24 Leeanne Balderas, LABORER [employer].YARD WORKER [address] [place] [address] Pony Roll Finisher Family Medicine 03/26/24 07/04/24 Juanita Luong PA-C [address] [place] [address] [facility] Family Medicine 03/26/24 07/04/24 Rubi Rodriguez, LABORER CHICKEN FARM.YARD WORKER [address] [place] [address] Pony Roll Finisher Family Medicine 03/26/24 07/04/24 Christiana Sims PA-C [address] [place] [address] Pony Roll Finisher Family Medicine 03/26/24 Tami Vazquez PA-C [address] [place] [address] Pony Roll Finisher Family Medicine 06/07/24 07/04/24 Juanita Luong PA-C [address] [place] [address] Pony Roll Finisher Family Medicine 07/11/24 07/25/24 Awa Sanchez PA-C [facility]2 [place], [place] [address] Pony Roll Finisher Internal Medicine 09/03/24 documented as of this encounter
--- OUTSIDE RECORDS SUMMARY | 2024-09-09 00:50 | XMS_ITS | Encounter Summary ---
Author Organization [facility] Address [address] [place], [place] [address] Care Team Providers Care Clinical Safety Specialist Name Role Phone IsiahNate greenfield Cecelia OSBORNE Unavailable [phone] Basim White MD Primary Care Provider Paulie Sanrda MD Unavailable [phone] Teagan Henriquez RN Unavailable Pascale Kc ENGAGEMENT QUALITY CONSULTANT.EDUCATIONAL TECHNOLOGIST Unavailable Leeanne Balderas ENGAGEMENT QUALITY CONSULTANT.EDUCATIONAL TECHNOLOGIST Unavailable [phone] Juanita Luong PA-C Unavailable Rubi Rodriguez ENGAGEMENT QUALITY CONSULTANT.EDUCATIONAL TECHNOLOGIST Unavailable Christiana Sims PA-C Unavailable Tami Vazquez PA-C Unavailable [phone] Juanita Luong PA-C Unavailable Awa Sanchez PA-C Unavailable Source Comments In the event this information is protected by the Federal Confidentiality of Alcohol and Drug AbusePatient Records regulations: The Federal rules restrict any use of the information to criminally investigate or prosecute any alcohol or drug abuse patient.[facility] Encounter Details Date Type Department Care Team (Late Contact Info) Description 12/12/2022 Get Medical Advice Gastroenterology [address] [address] Rubi Schultz MD, PhD [address] [place] [phone] Emptying Study Social History Tobacco Use Types Packs/Day [...] Never 05/03/2022 How often do you attend episcopal or buddhism serv ices? Never 05/03/2022 Do you belong to any clubs o r organizations such as episcopal groups, unions, fraternal or athletic groups, or [...] Answer Date Recorded PHQ-2 score 6 04/23/2022 [facility] [place] of Occupat ional Health - Occupational Stress [...] in a senior care (including now)? No 05/03/2022 Area Deprivation Index Answer Date Sergio rded National Score (1-100), lower number is lower ri sk 79 08/26/2022 State Score (1-10), lower number is lower risk 7 08/26/2022 Data from: https://www.neighborhoodatlas.medicine.[facility].edu/. 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 [...] Contact Info) Description 09/24/2024 6:00 PM EDT [facility] Family Medicine [place] [address] [place] [address] Basim White MD 450 [place] [address] 3 month follow up 11/28/2024 9:40 AM EDT [facility] Endocrinology [place] [address] [place] [address] [place] [address] [facility] [address] [place] [address] Type one diabetes pump and cgm follow up 12/20/2024 4:00 PM EDT [facility] [address] [place] [address] Christiana Sims PA-C 450 [place] [address] 6 Month follow up and yearly physical 03/04/2025 5:20 PM EST Office Visit [facility] [address] [place] [address] Basim White MD [address] [place] [address] 12 month follow up documented as of [...] on filedocumented in this encounter Care Teams Clinical Safety Specialist Relationship Specialty Start Date End Date Basim White MD [address] [place] [address] PCP - General Family Medicine 08/09/17 Nate Joyce DO Master Motorcycle Technician 02/09/13 Paulie Sandra MD [address] [phone] Primary Staff Physician Cardiology 07/04/18 Teagan Henriquez, JIE [address] [place] [address] Primary Care Motor Teacher Internal Medicine 06/22/23 07/21/23 Pascale Kc APRN.EDUCATIONAL TECHNOLOGIST [address] [place] [address] [facility] 03/26/24 07/04/24 Leeanne Balderas, ISABELLA.EDUCATIONAL TECHNOLOGIST [address] [place] [address] Kennel Keeper Family Medicine 03/26/24 07/04/24 Juanita Luong PA-C [address] [place] [address] Kennel Keeper Family Medicine 03/26/24 07/04/24 Rubi Rodriguez, ENGAGEMENT QUALITY CONSULTANT.EDUCATIONAL TECHNOLOGIST [address] [place] [address] Kennel Keeper Family Medicine 03/26/24 07/04/24 Christiana Sims PA-C [address] [place] [address] Kennel Keeper Family Medicine 03/26/24 Tami Vazquez PA-C [address] [place] [address] Kennel Keeper Family Medicine 06/07/24 07/04/24 Juanita Luong PA-C [address] [place] [address] Kennel Keeper Family Medicine 07/11/24 07/25/24 Awa Sanchez PA-C [address] [place] [address] Kennel Keeper Internal Medicine 09/03/24 documented as of this encounter
--- OUTSIDE RECORDS SUMMARY | 2024-09-09 00:50 | XMS_ITS | Encounter Summary ---
Author Organization [facility] Address [address] [place], [place] [address] Care Team Providers Care District Administrator Name Role Phone Nate Joyce Unavailable [phone] Basim White MD Primary Care Provider Paulie Sandra MD Unavailable [phone] Paulie Sandra MD Unavailable Teagan Henriquez RN Unavailable Pascale Kc MEDICAL OFFICE ASSISTANT.ASSEMBLY LINE ROBOT OPERATOR Unavailable Leeanne Balderas MEDICAL OFFICE ASSISTANT.ASSEMBLY LINE ROBOT OPERATOR Unavailable [phone] Juanita Luong PA-C Unavailable Rubi Rodriguez MEDICAL OFFICE ASSISTANT.ASSEMBLY LINE ROBOT OPERATOR Unavailable Christiana Sims PA-C Unavailable Tami Vazquez PA-C Unavailable [phone] Juanita Luong PA-C Unavailable Awa Sanchez [...] Care Team (Late st Contact Info) Description 09/11/2018 Patient Msg Neurology [address] [place] [phone] [place] [address] [address] [place] [phone] RE: Appointment Cancellation Request Social History Tobacco [...] 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 Endocrinology [place] [address] [place] [address] [place] [address] [address] Type one diabetes pump and cgm follow up 12/20/2024 4:00 PM EDT [address] [address] Christiana Sims PA-C [address] [place] [address] 6 Month follow up and yearly physical 03/04/2025 5:20 PM EST Office Visit [address] [address] Basim White MD [address] [place] [address] 12 month follow up documented as of [...] documented as of this encounter Care Teams District Administrator Relationship Specialty Start Date End Date Basim White MD 450 [place] [address] PCP - General Family Medicine 08/09/17 Nate Joyce DO 3Rd Grade Teacher 02/09/13 Paulie Sandra MD [address] [phone] Primary Staff Physician Cardiology 07/04/1807/04 Paulie Sandra MD [address] [address] Primary Staff Physician Cardiology 07/04/18 Teagan Henriquez, RN [address] [place] [phone] Primary Care Sharepoint Admin Internal Medicine 06/22/23 07/21/23 Pascale Kc, MEDICAL OFFICE ASSISTANT.ASSEMBLY LINE ROBOT OPERATOR [address] [place] [address] Bods Developer Family Medicine 03/26/24 07/04/24 Leeanne Balderas, MEDICAL OFFICE ASSISTANT.ASSEMBLY LINE ROBOT OPERATOR [address] [place] [address] Bods Developer Family Medicine 03/26/24 07/04/24 Juanita Luong PA-C [address] [place] [address] Bods Developer Family Medicine 03/26/24 07/04/24 Rubi Rodriguez, MEDICAL OFFICE ASSISTANT.ASSEMBLY LINE ROBOT OPERATOR [address] [place] [address] Bods Developer Family Medicine 03/26/24 07/04/24 Christiana Sims PA-C [address] [place] [address] Bods Developer Family Medicine 03/26/24 Tami Vazquez PA-C [address] [place] [address] Bods Developer Family Medicine 06/07/24 07/04/24 Juanita Luong PA-C [address] [place] [address] Bods Developer Family Medicine 07/11/24 07/25/24 Awa Sanchez PA-C [facility] [place], [place] [address] Bods Developer Internal Medicine 09/03/24 documented as of this encounter
--- OUTSIDE RECORDS SUMMARY | 2024-09-09 00:50 | XMS_ITS | Encounter Summary ---
Author Organization [facility] Address [address] [place], [place] [id number] Care Team Providers Care Dive Supervisor Name Role Phone IsiahNate greenfield Cecelia OSBORNE Unavailable [phone] Basim White MD Primary Care Provider Paulie Sandra MD Unavailable Teagan Henriquez RN Unavailable [facility] [facility] ACTING MANAGER.SERVICE GREETER Unavailable Leeanne Balderas ACTING MANAGER.SERVICE GREETER Unavailable [phone] Juanita Luong PA-C Unavailable Rubi Rodriguez ACTING MANAGER.SERVICE GREETER Unavailable Christiana Sims PA-C Unavailable Tami Vazquez PA-C Unavailable [phone] Juanita Luong PA-C Unavailable Awa Sanchez [...] Department Care Team (Late Contact Info) Description 06/06/2023 Patient Msg Family Medicine [place] [address] [place], [place] [phone] Basim White MD [address] [place] [address] Appointment Request Social History Tobacco Use Types Packs/Day Years Used Date Smoking Tobacco: Never Smokeless Tobacco: Never Alcohol Use Standard Drinks/Week Comments Yes 0 (1 standard drink = 0.6 oz pur e alcohol) rarely [facility] Utilities Answer Date Recorded In the [...] How often do you attend [facility] or jainism services? More than 4 times per year 05/20/2023 Do you belong to any clubs o r organizations such as anglican groups, unions, fraternal or athletic groups, or [...] Answer Date Recorded PHQ-2 score 6 04/23/2022 [facility] [place] of Occupat ional Health - Occupational Stress [...] slept in a detention (including now)? No 05/20/2023 Area Deprivation Index Answer Date Sergio rded National Score (1-100), lower number is lower ri sk 79 08/26/2022 State Score (1-10), lower number is lower risk 7 08/26/2022 Data from: https://www.neighborhoodatlas.medicine.[facility].edu/. 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 Medicine [place] [address] [place] [address] Basim White MD [address] [place] [address] 3 month follow up 11/28/2024 9:[address] [facility] Endocrinology [place] [address] [place] [address] [place] [address] [address] Type one diabetes pump and cgm follow up 12/20/2024 4:00 PM EDT [facility] [address] [place] [address] Christiana Sims PA-C [address] [place] [address] 6 Month follow up and yearly physical 03/04/2025 5:20 PM EST Office Visit [facility] [address] [place] [address] Basim White MD [address] [place] [address] 12 month follow up documented as of [...] on filedocumented in this encounter Care Teams Dive Supervisor Relationship Specialty Start Date End Date Basim White MD [address] [place] [address] PCP - General Family Medicine 08/09/17 Nate Joyce DO Revenue Cycle Consultant 02/09/13 Paulie Sandra MD [address] [phone] Primary Staff Physician Cardiology 07/04/18 Teagan Henriquez, JIE [address]000 [place] [address] Primary Care Report Specialist Internal Medicine 06/22/23 07/21/23 [employer] K[employer] ACTING MANAGER.SERVICE GREETER [address] [place] [address] Guide Dog Trainer Family Medicine 03/26/24 07/04/24 Leeanne Balderas ACTING MANAGER.SERVICE GREETER [address] [place] [address] [facility] Family Medicine 03/26/24 07/04/24 Juanita Luong PA-C [address] [place] [address] Guide Dog Trainer Family Medicine 03/26/24 07/04/24 Rubi Rodriguez APRN.SERVICE GREETER [address] [place] [address] Guide Dog Trainer Family Medicine 03/26/24 07/04/24 Christiana Sims PA-C [address] [place] [address] Guide Dog Trainer Family Medicine 03/26/24 Tami Vazquez PA-C [address] [place] [address] Guide Dog Trainer Family Medicine 06/07/24 07/04/24 Juanita Luong PA-C [address] [place] [address] Guide Dog Trainer Family Medicine 07/11/24 07/25/24 Awa Sanchez PA-C [address] [place] [address] Guide Dog Trainer Internal Medicine 09/03/24 documented as of this encounter
--- OUTSIDE RECORDS SUMMARY | 2024-09-09 00:50 | XMS_ITS | Encounter Summary ---
Author Organization [facility] Address [address] [place], [place] [address] Care Team Providers Care Call Center Professional Name Role Phone Nate Joyce DO Unavailable [phone] Mariam Cruz MD Primary Care Provider [phone] Morena Jara RN Unavailable [phone] Basim Cavazos Primary Care Provider Unavailabl e Pcp, No DATA SECURITY ANALYST Primary Care Provider Unavailabl e Anastasia Ruiz DO Primary Care Provider Basim White MD Primary Care Provider [phone] Paulie Sandra MD Unavailable Paulie Sandra MD Unavailable Teagan Henriquez RN Unavailable [facility] [facility] DATA SECURITY ANALYST.FARMWORKER GRAIN Unavailable Leeanne Balderas DATA SECURITY ANALYST.FARMWORKER GRAIN Unavailable Juanita Luong PA-C Unavailable Rubi Rodriguez DATA SECURITY ANALYST.FARMWORKER GRAIN Unavailable Christiana Sims PA-C Unavailable Tami Vazquez PA-C Unavailable [phone] Juanita Luong PA-C Unavailable Awa Sanchez PA-C Unavailable Source Comments In the event this information is protected by the Federal Confidentiality of Alcohol and Drug AbusePatient Records regulations: The Federal rules restrict any use of the information to criminally investigate or prosecute any alcohol or drug abuse patient.[facility] Encounter Details Date Type Department Care Team (Late st Contact Info) Description 03/29/2015 Get Medical Advice Neurology [address] [place], [place] [phone] Lailtha Grewal(Hist) [address] [place] [address] RE: Medication Question (Not Renewal) Social History [...] Industry Job Start Date Job End Date [employer] Not on file Not on file Not [...] Contact Info) Description 09/24/2024 6:00 PM EDT [address] [address] Basim White MD [address] [place] [address] 3 month follow up 11/28/2024 9:40 AM EDT [facility] Endocrinology [place] [address] [place] [address] [place] [address] [address] Type one diabetes pump and cgm follow up 12/20/2024 4:00 PM EDT [address] [address] Christiana Sims PA-C [address] [place] [address] 6 Month follow up and yearly physical 03/04/2025 5:20 PM EST Office Visit [address] [place] [address] [address] Basim White MD [address] [place] [address] 12 month follow up documented as of [...] of this encounter Care Teams Call Center Professional Relationship Specialty Start Date End Date Mariam Cruz MD [address] [place] [id number] PCP - General Family Medicine 02/09/13 03/08/16 Basim Cavazos PCP - General 03/09/16 04/14/16 Pcp, No, DATA SECURITY ANALYST PCP - General 04/15/16 06/09/16 [place] [address] [place] [address] PCP - General Family Medicine 06/10/16 08/08/17 Basim White MD 450 [place] [address] PCP - General Family Medicine 08/09/17 Nate Joyce DO Shochet 02/09/13 Morena Jara, RN [address] [place] [address] Specialty Line Lead Endocrinology 06/08/13 04/04/16 Paulie Sandra MD [address] [facility] [address] [place] [address] Primary Staff Physician Cardiology 07/04/1807/04 Paulie Sandra MD [address] [facility] [address] [place] [phone] Primary Staff Physician Cardiology 07/04/18 Teagan Henriquez, RN 6000 [place], [place] [phone] Primary Care Aircraft Structural Repairer Internal Medicine 06/22/23 07/21/23 Pascale Kc, DATA SECURITY ANALYST.FARMWORKER GRAIN [address] [place] [address] Etcher Photoengraving Family Medicine 03/26/24 07/04/24 Leeanne Balderas APRN.FARMWORKER GRAIN [address] [place] [address] Etcher Photoengraving Family Medicine 03/26/24 07/04/24 Juanita Luong PA-C [address] [place] [address] [employer]cher [employer]engra[employer] Family Medicine 03/26/24 07/04/24 Rubi Rodriguez APRN.FARMWORKER GRAIN [address] [place] [address] Etcher Photoengraving Family Medicine 03/26/24 07/04/24 Christiana Sims PA-C [address] [place] [address] [facility] 03/26/24 Tami Vazquez PA-C [address] [place] [address] [employer] Family Medicine 06/07/24 07/04/24 Juanita Luong PA-C [address] [place] [address] [facility] 07/11/24 07/25/24 Awa Sanchez PA-C [address] [place] [address] [facility] Internal Medicine 09/03/24 documented as of this encounter
--- OUTSIDE RECORDS SUMMARY | 2024-09-09 00:50 | XMS_ITS | Encounter Summary ---
Author Organization [facility] Address [address] [place], [place] [address] Care Team Providers Care Flow Manager Name Role Phone IsiahNate greenfield Cecelia OSBORNE Unavailable [phone] Basim White MD Primary Care Provider Paulie Sandra MD Unavailable [phone] Teagan Henriquez RN Unavailable [employer] Kc CRAWLER CRANE OPERATOR.FITTER'S ASSISTANT Unavailable Leeanne Balderas CRAWLER CRANE OPERATOR.FITTER'S ASSISTANT Unavailable [phone] Juanita Luong PA-C Unavailable Rubi Rodriguez CRAWLER CRANE OPERATOR.FITTER'S ASSISTANT Unavailable Christiana Sims PA-C Unavailable Tami Vazquez PA-C Unavailable [phone] Juanita Luong PA-C Unavailable Awa Sanchez PA-C Unavailable Source Comments In the event this information is protected by the Federal Confidentiality of Alcohol and Drug AbusePatient Records regulations: The Federal rules restrict any use of the information to criminally investigate or prosecute any alcohol or drug abuse patient.[facility] Encounter Details Date Type Department Care Team (Kathryn saiin Contact Info) Description 11/18/2022 Patient Msg Internal Medicine [place] [place] [address] Provider, Ccf Your primary care physician has placed lab orders for your upcoming appointment. Social History Tobacco Use Types Packs/Day Years [...] Never 05/03/2022 How often do you attend yazdanism or zoroastrianism serv ices? Never 05/03/2022 Do you belong to any clubs o r organizations such as yazdanism groups, unions, fraternal or athletic groups, or [...] Answer Date Recorded PHQ-2 score 6 04/23/2022 [facility] [place] of Occupat ional Health - Occupational Stress [...] in a senior living (including now)? No 05/03/2022 Area Deprivation Index Answer Date Sergio rded National Score (1-100), lower number is lower ri sk 79 08/26/2022 State Score (1-10), lower number is lower risk 7 08/26/2022 Data from: https://www.neighborhoodatlas.medicine.[facility].edu/. Last address used for calculation [address] [...] Industry Job Start Date Job End Date [employer] Not on file Not on file [...] Author No 01/25/2017 3:55 PM EDT Osmany Irelnad RN documented in this encounter Plan of Treatment Upcoming Encounters Date Type Department Care Team (Latest Contact Info) Description 09/24/2024 6:00 PM EDT [facility] Family Medicine [place] [address] [place] [address] Basim White MD [address] [place] [address] 3 month follow up 11/28/2024 9:40 AM EDT [facility] Endocrinology [place] [id number] [place] [address] [place] [address] [facility] [address] [place] [address] Type one diabetes pump and cgm follow up 12/20/2024 4:00 PM EDT [facility] [address] [place] [address] Christiana Sims PA-C [address] [place] [address] 6 Month follow up and yearly physical 03/04/2025 5:20 PM EST Office Visit [facility] [address] [place] [address] Basim White MD [address] [place] [address] 12 month follow up documented as of [...] on filedocumented in this encounter Care Teams Flow Manager Relationship Specialty Start Date End Date Basim White MD [address] [place] [address] PCP - General Family Medicine 08/09/17 Nate Joyce DO Compliance Administrator 02/09/13 Paulie Sandra MD [address] [address] Primary Staff Physician Cardiology 07/04/18 Teagan Henriquez, JIE [address] [place] [address] Primary Care Information Systems Manager Internal Medicine 06/22/23 07/21/23 Pascale Kc, CRAWLER CRANE OPERATOR.FITTER'S ASSISTANT [address] [place] [address] [facility] Family [facility] 03/26/24 07/04/24 Leeanne Balderas, CRAWLER CRANE OPERATOR.FITTER'S ASSISTANT [address] [place] [address] Security Technician Family Medicine 03/26/24 07/04/24 Juanita Luong PA-C [address] [place] [address] [facility] Medicine 03/26/24 07/04/24 Rubi Rodriguez, CRAWLER CRANE OPERATOR.FITTER'S ASSISTANT [address] [place] [address] Security Technician Family Medicine 03/26/24 07/04/24 Christiana Sims PA-C [address] [place] [address] Security Technician Family Medicine 03/26/24 Tami Vazquez PA-C [address] [place] [address] Security Technician Family Medicine 06/07/24 07/04/24 Juanita Luong PA-C [address] [place] [address] Security Technician Family Medicine 07/11/24 07/25/24 Awa Sanchez PA-C [address] [place] [address] Security Technician Internal Medicine 09/03/24 documented as of this encounter
--- OUTSIDE RECORDS SUMMARY | 2024-09-09 00:50 | XMS_ITS | Encounter Summary ---
Author Organization [facility] Address [address] [place], [place] [address] Care Team Providers Care House Painter Name Role Phone IsiahNate greenfield Cecelia OSBORNE Unavailable [phone] Basim White MD Primary Care Provider Paulie Sandra MD Unavailable Teagan Henriquez RN Unavailable [employer] Kc ASSAULT AMPHIBIOUS VEHICLE OFFICER.YARN BLEACHING MACHINE OPERATOR Unavailable Leeanne Balderas ASSAULT AMPHIBIOUS VEHICLE OFFICER.YARN BLEACHING MACHINE OPERATOR Unavailable [phone] Juanita Luong PA-C Unavailable Rubi Rodriguez ASSAULT AMPHIBIOUS VEHICLE OFFICER.YARN BLEACHING MACHINE OPERATOR Unavailable Christiana Sims PA-C Unavailable Tami Vazquez PA-C Unavailable [phone] Juanita Luong PA-C Unavailable Awa Sanchez [...] Care Team (Kathryn saini Contact Info) Description 06/01/2023 Patient Msg [facility] [address] [place] [address] Derrick Peguero DPM [address] [place] [id number] Request an Appointment Social History Tobacco Use Types Packs/Day Years Used Date Smoking Tobacco: Never Smokeless Tobacco: Never Alcohol Use Standard Drinks/Week Comments Yes 0 (1 standard drink = 0.6 oz pur e alcohol) rarely [facility] Utilities Answer Date Recorded In the past [...] How often do you attend [facility] or orthodoxy services? More than 4 times per year 05/20/2023 Do you belong to any clubs o r organizations such as mandaen groups, unions, fraternal or athletic groups, or [...] Answer Date Recorded PHQ-2 score 6 04/23/2022 [facility] [place] of Occupat ional Health - Occupational Stress [...] slept in a fpc (including now)? 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 Not on file Not [...] Contact Info) Description 09/24/2024 6:00 PM EDT [facility] Medicine [place] [address] [place] [address] Basim White MD [address] [place] [address] 3 month follow up 11/28/2024 9:40 AM EDT [facility] Endocrinology [place] [address] [place] [address] [place] [address] [address] Type one diabetes pump and cgm follow up 12/20/2024 4:00 PM EDT [facility] [address] [place] [address] Christiana Sims PA-C 450 [place] [address] 6 Month follow up and yearly physical 03/04/2025 5:20 PM EST Office Visit [facility] [address] [place] [address] Basim White MD 450 [place] [address] 12 month follow up documented as of [...] on filedocumented in this encounter Care Teams House Painter Relationship Specialty Start Date End Date Basim White MD [address] [place] [address] PCP - General Family Medicine 08/09/17 Nate Joyce DO Warping Machine Operator 02/09/13 Paulie Sandra MD [address] [phone] Primary Staff Physician Cardiology 07/04/18 Teagan Henriquez, JIE [address]000 [place] [address] Primary Care Plate Glass Installer Internal Medicine 06/22/23 07/21/23 Pascale Kc, ASSAULT AMPHIBIOUS VEHICLE OFFICER.YARN BLEACHING MACHINE OPERATOR [address] [place] [address] Cellophane Bath Mixer Family Medicine 03/26/24 07/04/24 Leeanne Balderas ASSAULT AMPHIBIOUS VEHICLE OFFICER.YARN BLEACHING MACHINE OPERATOR [address] [place] [address] Cellophane Bath Mixer Family Medicine 03/26/24 07/04/24 Juanita Luong PA-C [address] [place] [address] Cellophane Bath Mixer Family Medicine 03/26/24 07/04/24 Rubi Rodriguez APRN.[facility] [address] [place] [address] Cellophane Bath Mixer Family Medicine 03/26/24 07/04/24 Christiana Sims PA-C [address] [place] [address] Cellophane Bath Mixer Family Medicine 03/26/24 Tami Vazquez PA-C [address] [place] [address] Cellophane Bath Mixer Family Medicine 06/07/24 07/04/24 Juanita Luong PA-C [address] [place] [address] Cellophane Bath Mixer Family Medicine 07/11/24 07/25/24 Awa Sanchez PA-C [address] [place] [address] Cellophane Bath Mixer Internal Medicine 09/03/24 documented as of this encounter
--- OUTSIDE RECORDS SUMMARY | 2024-09-09 00:50 | XMS_ITS | Encounter Summary ---
Author Organization [facility] Address [address] [place], [place] [address] Care Team Providers Care Club Lounge Attendant Name Role Phone Nate Joyce Unavailable [phone] Basim White MD Primary Care Provider Paulie Sandra MD Unavailable [phone] Christiana Sims PA-C Unavailable [phone] Juanita Luong PA-C Unavailable [phone] Awa Sanchez PA-C Unavailable Source Comments In the event this information is protected by the Federal Confidentiality of Alcohol and Drug AbusePatient Records regulations: The Federal rules restrict any use of the information to criminally investigate or prosecute any alcohol or drug abuse patient.[facility] Encounter Details Date Type Department Care Team (Late st Contact Info) Description 07/10/2024 Get Medical Advice Family Medicine [place] [address] [place], [place] [phone] Basim White MD [address] [place] [place], [place] [phone] Question Social History Tobacco Use Types Packs/Day Years Used Date Smoking Tobacco: Never Smokeless Tobacco: Never Alcohol Use Standard Drinks/Week Comments Yes 0 (1 standard drink = 0.6 oz pur e alcohol) rarely [facility] Utilities Answer Date Recorded In the [...] Never 07/10/2024 How often do you attend [facility] or gnosticist services? More than 4 times per year 07/10/2024 Do you belong to any clubs o r organizations such as mandaeism groups, unions, fraternal or athletic groups, or [...] Answer Date Recorded PHQ-2 score 6 07/10/2024 [facility] [place] of Occupat ional Health - Occupational Stress [...] a nursing home (including now)? No 06/20/2023 Housing Stability Vital [...] lower risk 7 08/26/2022 Data from: https://www.neighborhoodatlas.medicine.[facility].edu/. 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 Answer Date of Assessment Author Monthly or less 07/10/2024 7:38 AM EDT User, [employer] * Q2: How many drinks containing alcohol do you have on a typical day when you are drinking? Answer Date of Assessment Author 1 or 2 07/10/2024 7:38 AM EDT User, [employer] * Q3: How often do you have six or more drinks on one occasion? Answer Date of Assessment Author Never 07/10/2024 7:38 AM EDT User, [employer] * Are you deaf [...] Info) Description 09/24/2024 6:00 PM EDT [address] [address] Basim White MD [address] [place] [address] 3 month follow up 11/28/2024 9:40 AM EDT [facility] Endocrinology [place] [address] [place] [address] [place] [address] [address] Type one diabetes pump and cgm follow up 12/20/2024 4:00 PM EDT [address] [address] Christiana Sims PA-C [address] [place] [address] 6 Month follow up and yearly physical 03/04/2025 5:20 PM EST Office Visit [address] [address] Basim White MD [address] [place] [address] 12 month follow up documented as of this encounter Goals Goal Patient Goal Type Associated Problems Recent Progress Patient-Stated? Author Blood Pressure < 130/80 Blood Pressure 108/64(08/2023 7:48 AM EST) Shena Zuniga, RN Care Coordination - Diabetes Care Coordination [...] Reviewed on date: December 11, 2013 MROENA PANDEY RN documented as of this encounter Visit Diagnoses Not on filedocumented in this encounter Care Teams Club Lounge Attendant Relationship Specialty Start Date End Date Basim White MD [address] [place] [address] PCP - General Family Medicine 08/09/17 Nate Joyce DO Manager Of Change 02/09/13 Paulie Sandra MD [address] [phone] Primary Staff Physician Cardiology 07/04/18 Christiana Sims PA-C [address] [place] [address] Road Design Engineer Family Medicine 03/26/24 Juanita Luong PA-C [address] [place] [address] Road Design Engineer Family Medicine 07/11/24 07/25/24 Awa Sanchez PA-C [address] [place] [address] [id number] Design Engineer Internal Medicine 09/03/24 documented as of this encounter
--- OUTSIDE RECORDS SUMMARY | 2024-09-09 00:50 | XMS_ITS | Encounter Summary ---
Author Organization [facility] Address [address] [place], [place] [address] Care Team Providers Care Upholsterer Limousine And Hearse Name Role Phone Nate Joyce Unavailable [phone] Basim White MD Primary Care Provider Paulie Sandra MD Unavailable [phone] Paulie Sandra MD Unavailable Teagan Henriquez RN Unavailable Pascale Kc ADMINISTRATIVE ANALYST.TOBACCO WEIGHER Unavailable Leeanne Balderas ADMINISTRATIVE ANALYST.TOBACCO WEIGHER Unavailable [phone] Juanita Luong PA-C Unavailable Rubi Rodriguez ADMINISTRATIVE ANALYST.TOBACCO WEIGHER Unavailable Christiana Sims PA-C Unavailable Tami Vazquez PA-C Unavailable [phone] Juanita Luong PA-C Unavailable Awa Sanchez PA-C Unavailable Source Comments In the event this information is protected by the Federal Confidentiality of Alcohol and Drug AbusePatient Records regulations: The Federal rules restrict any use of the information to criminally investigate or prosecute any alcohol or drug abuse patient.[facility] Encounter Details Date Type Department Care Team (Late st Contact Info) Description 09/08/2018 Patient Msg Endocrinology [address] [place] [address] [place] [address] [place] [address] RE: Appointment Cancellation Request Social History Tobacco [...] Industry Job Start Date Job End Date [employer] Not on file Not on file Not [...] Info) Description 09/24/2024 6:00 PM EDT [address] [address] Basim White MD [address] [place] [address] 3 month follow up 11/28/2024 9:40 AM EDT [facility] Endocrinology [place] [address] [place] [address] [place] [address] [address] Type one diabetes pump and cgm follow up 12/20/2024 4:00 PM EDT [address] [address] Christiana Sims PA-C [address] [place] [address] 6 Month follow up and yearly physical 03/04/2025 5:20 PM EST Office Visit [address] [address] Basim White MD [address] [place] [address] 12 month follow up documented as of [...] documented as of this encounter Care Teams Upholsterer Limousine And Hearse Relationship Specialty Start Date End Date Basim White MD [address] [place] [address] PCP - General Family Medicine 08/09/17 Nate Joyce DO Door Repairer Bus 02/09/13 Paulie Sandra MD [address] [address] Primary Staff Physician Cardiology 07/04/1807/04 Paulie Sandra MD [address] [address] Primary Staff Physician Cardiology 07/04/18 Teagan Henriquez, RN 6000 [place] [address] Primary Care Strip Machine Operator Internal Medicine 06/22/23 07/21/23 Pascale Kc, ADMINISTRATIVE ANALYST.TOBACCO WEIGHER [address] [place] [address] Artistic Associate Family Medicine 03/26/24 07/04/24 Leeanne Balderas, ADMINISTRATIVE ANALYST.TOBACCO WEIGHER [address] [place] [address] Artistic Associate Family Medicine 03/26/24 07/04/24 Juanita Luong PA-C [address] [place] [address] [facility] Family Medicine 03/26/24 07/04/24 Rubi Rodriguez, ADMINISTRATIVE ANALYST.TOBACCO WEIGHER [address] [place] [address] Artistic Associate Family Medicine 03/26/24 07/04/24 Christiana Sims PA-C [address] [place] [address] Artistic Associate Family Medicine 03/26/24 Tami Vazquez PA-C [address] [place] [address] Artistic Associate Family Medicine 06/07/24 07/04/24 Juanita Luong PA-C [address] [place] [address] Artistic Associate Family Medicine 07/11/24 07/25/24 Awa Sanchez PA-C [facility] [place], [place] [address] Artistic Associate Internal Medicine 09/03/24 documented as of this encounter
--- OUTSIDE RECORDS SUMMARY | 2024-09-09 00:50 | XMS_ITS | Encounter Summary ---
Author Organization [facility] Address [address] [place], [place] [address] Care Team Providers Care Managing Broker Name Role Phone IsiahNate greenfield Cecelia OSBORNE Unavailable [phone] Basim White MD Primary Care Provider Paulie Sandra MD Unavailable Teagan Henriquez RN Unavailable Pasc[employer] Kc TENSIONING MACHINE OPERATOR.CORPORATE SECURITIES RESEARCH ANALYST Unavailable Leeanne Balderas TENSIONING MACHINE OPERATOR.CORPORATE SECURITIES RESEARCH ANALYST Unavailable [phone] Juanita Luong PA-C Unavailable Rubi Rodriguez TENSIONING MACHINE OPERATOR.CORPORATE SECURITIES RESEARCH ANALYST Unavailable Christiana Sims PA-C Unavailable Tami Vazquez PA-C Unavailable [phone] Juanita Luong PA-C Unavailable Awa Sanchez PA-C Unavailable Source Comments In the event this information is protected by the Federal Confidentiality of Alcohol and Drug AbusePatient Records regulations: The Federal rules restrict any use of the information to criminally investigate or prosecute any alcohol or drug abuse patient.[facility] Encounter Details Date Type Department Care Team (Kathryn saini Contact Info) Description 11/08/2022 Patient Msg General Surgery BMI [address] [place] [address] Provider, [facility] Appointment Request Social History Tobacco [...] Never 05/03/2022 How often do you attend religion or yarsanism serv ices? Never 05/03/2022 Do you belong to any clubs o r organizations such as religion groups, unions, fraternal or athletic groups, or [...] Answer Date Recorded PHQ-2 score 6 04/23/2022 [facility] [place] of Occupat ional Health - Occupational Stress [...] slept in a mcfp (including now)? No 05/03/2022 Area Deprivation Index Answer Date Sergio rded National Score (1-100), lower number is lower ri sk 79 08/26/2022 State Score (1-10), lower number is lower risk 7 08/26/2022 Data from: https://www.neighborhoodatlas.medicine.[facility].edu/. 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 on file Not [...] EDT [facility] Family Medicine [place] [address] [place] [address] Basim White MD [address] [place] [address] 3 month follow up 11/28/2024 9:40 AM EDT [facility] Endocrinology [place] [address] [place] [id number] [place] [address] [address] Type one diabetes pump and cgm follow up 12/20/2024 4:00 PM EDT [facility] [address] [place] [address] Christiana Sims PA-C [address] [place] [address] 6 Month follow up and yearly physical 03/04/2025 5:20 PM EST Office Visit [facility] [address] [place] [address] Basim White MD [address] [place] [address] 12 month follow up documented as of [...] on filedocumented in this encounter Care Teams Managing Broker Relationship Specialty Start Date End Date Bsaim White MD [address] [place] [address] PCP - General Family Medicine 08/09/17 Nate Joyce DO Athletic Gear Custodian 02/09/13 Paulie Sandra MD [address] [address] Primary Staff Physician Cardiology 07/04/18 Teagan Henriquez RN 6000 [place], [place] [address] Primary Care Skip Pit Worker Internal Medicine 06/22/23 07/21/23 Pascale Kc, TENSIONING MACHINE OPERATOR.CORPORATE SECURITIES RESEARCH ANALYST [address] [place] [address] Furniture Sales Consultant Family Medicine 03/26/24 07/04/24 Leeanne Balderas, TENSIONING MACHINE OPERATOR.CORPORATE SECURITIES RESEARCH ANALYST [address] [place] [address] Furniture Sales Consultant Family Medicine 03/26/24 07/04/24 Juanita Luong PA-C [address] [place] [address] Furniture Sales Consultant Family Medicine 03/26/24 07/04/24 Rubi Rodriguez, TENSIONING MACHINE OPERATOR.CORPORATE SECURITIES RESEARCH ANALYST [address] [place] [address] Furniture Sales Consultant Family Medicine 03/26/24 07/04/24 Christiana Sims PA-C [address] [place] [address] Furniture Sales Consultant Family Medicine 03/26/24 Tami Vazquez PA-C [address] [place] [address] [facility] Family Medicine 06/07/24 07/04/24 Juanita Luong PA-C [address] [place] [address] [facility] Family Medicine 07/11/24 07/25/24 Awa Sanchez PA-C [address] [place] [address] [facility] Internal Medicine 09/03/24 documented as of this encounter
--- OUTSIDE RECORDS SUMMARY | 2024-09-09 00:50 | XMS_ITS | Encounter Summary ---
Author Organization [facility] Address [address] [place], [place] [address] Care Team Providers Care Oracle Endeca Consultant Name Role Phone Nate Joyce DO Unavailable [phone] Mariam Cruz MD Primary Care Provider Morena Jara RN Unavailable [phone] Basim Cavazos Primary Care Provider Unavailabl e Pcp, No HVAC/R SERVICE TECHNICIAN Primary Care Provider Unavailabl e Anastasia Ruiz DO Primary Care Provider Basim White MD Primary Care Provider [phone] Paulie Sandra MD Unavailable Paulie Sandra MD Unavailable Teagan Henriquez RN Unavailable Pascale Kc HVAC/R SERVICE TECHNICIAN.ELECTRO WINNING OPERATOR Unavailable Leeanne Balderas HVAC/R SERVICE TECHNICIAN.ELECTRO WINNING OPERATOR Unavailable Juanita Luong PA-C Unavailable Rubi Rodriguez HVAC/R SERVICE TECHNICIAN.ELECTRO WINNING OPERATOR Unavailable Christiana Sims PA-C Unavailable Tami Vazquez PA-C Unavailable [phone] Juanita Luong PA-C Unavailable Awa Sanchez [...] Care Team (Late st Contact Info) Description 05/15/2015 Get Medical Advice Neurology [address] [place], [place] [phone] Lalitha Grewal(Hist) [address] [place] [address] RE: Medication Question (Not Renewal) Social History [...] Industry Job Start Date Job End Date [employer] Not on file Not on file Not [...] Info) Description 09/24/2024 6:00 PM EDT [address] [address] Basim White MD [address] [place] [address] 3 month follow up 11/28/2024 9:40 AM EDT [facility] Endocrinology [place] [address] [place] [address] [place] [address] [address] Type one diabetes pump and cgm follow up 12/20/2024 4:00 PM EDT [address] [address] Christiana Sims PA-C [address] [place] [address] 6 Month follow up and yearly physical 03/04/2025 5:20 PM EST Office Visit [address] [address] Basim White MD [address] [place] [address] 12 month follow up documented as of [...] documented as of this encounter Care Teams Oracle Endeca Consultant Relationship Specialty Start Date End Date Mariam Cruz MD [address] [place] [id number] PCP - General Family Medicine 02/09/13 03/08/16 Basim Cavazos PCP - General 03/09/16 04/14/16 Pcp, No, HVAC/R SERVICE TECHNICIAN PCP - General 04/15/16 06/09/16 [place] [address] [place] [address] PCP - General Family Medicine 06/10/16 08/08/17 Basim White MD [address] [place] [address] PCP - General Family Medicine 08/09/17 Nate Joyce DO Computer Assistant 02/09/13 Morena Jara, RN 5700 [place] [address] Specialty Recordist Chief Endocrinology 06/08/13 04/04/16 Paulie Sandra MD [address] [facility] [address] [place] [address] Primary Staff Physician Cardiology 07/04/1807/04 Paulie Sandra MD [address] [facility] [address] [place] [address] Primary Staff Physician Cardiology 07/04/18 Teagan Henriquez, RN 6000 [place], [place] [address] Primary Care In Service Education Teacher Internal Medicine 06/22/23 07/21/23 Pascale Kc, HVAC/R SERVICE TECHNICIAN.ELECTRO WINNING OPERATOR [address] [place] [address] Drapery Counselor Family Medicine 03/26/24 07/04/24 Leeanne Balderas APRN.ELECTRO WINNING OPERATOR [address] [place] [address] Drapery Counselor Family Medicine 03/26/24 07/04/24 Juanita Luong PA-C [address] [place] [address] Drapery Counselor Family Medicine 03/26/24 07/04/24 Rubi Rodriguez APRN.ELECTRO WINNING OPERATOR [address] [place] [address] Drapery Counselor Family Medicine 03/26/24 07/04/24 Christiana Sims PA-C [address] [place] [address] [facility] Family Medicine 03/26/24 Tami Vazquez PA-C [address] [place] [address] Drapery Counselor Family Medicine 06/07/24 07/04/24 Juanita Luong PA-C [address] [place] [address] [facility] Family Medicine 07/11/24 07/25/24 Awa Sanchez PA-C [address] [place] [address] [facility] Internal Medicine 09/03/24 documented as of this encounter
--- OUTSIDE RECORDS SUMMARY | 2024-09-09 00:50 | XMS_ITS | Encounter Summary ---
Author Organization [facility] Address [address] [place], [place] [address] Care Team Providers Care Mercerizer Name Role Phone Nate Joyce DO Unavailable [phone] Mariam Cruz MD Primary Care Provider [phone] Morena Jara RN Unavailable [phone] Basim Cavazos Primary Care Provider Unavailabl e Pcp, No LINE MAINTENANCE SUPERVISOR Primary Care Provider Unavailabl e Anastasia Ruiz DO Primary Care Provider Basim White MD Primary Care Provider [phone] Paulie Sandra MD Unavailable Paulie Sandra MD Unavailable Teagan Henriquez RN Unavailable Pascale Kc LINE MAINTENANCE SUPERVISOR.MINING CONSULTANT Unavailable Leeanne Balderas LINE MAINTENANCE SUPERVISOR.MINING CONSULTANT Unavailable Juanita Luong PA-C Unavailable Rubi Rodriguez LINE MAINTENANCE SUPERVISOR.MINING CONSULTANT Unavailable Christiana Sims PA-C Unavailable Tami Vazquez PA-C Unavailable [phone] Juanita Luong PA-C Unavailable Awa Sanchez PA-C Unavailable Source Comments In the event this information is protected by the Federal Confidentiality of Alcohol and Drug AbusePatient Records regulations: The Federal rules restrict any use of the information to criminally investigate or prosecute any alcohol or drug abuse patient.[facility] Encounter Details Date Type Department Care Team (Late st Contact Info) Description 06/18/2015 Patient Msg Medical Records [address] [place] [address] Provider, [facility] Medical Records/ from Dr Grewal's office Social History Tobacco Use Types Packs/Day Years [...] Industry Job Start Date Job End Date [employer] Not on file Not on file Not [...] Info) Description 09/24/2024 6:[address] PM EDT [address] [address] Basim White MD [address] [place] [address] 3 month follow up 11/28/2024 9:40 AM EDT [facility] Endocrinology [place] [address] [place] [address] [place] [address] [address] Type one diabetes pump and cgm follow up 12/20/2024 4:00 PM EDT [address] [address] Christiana Sims PA-C [address] [place] [address] 6 Month follow up and yearly physical 03/04/2025 5:20 PM EST Office Visit [address] [address] Basim White MD [address] [place] [address] 12 month follow up documented as of [...] documented as of this encounter Care Teams Mercerizer Relationship Specialty Start Date End Date Mariam Cruz MD [address] [place] [address] PCP - General Family Medicine 02/09/13 03/08/16 Basim Cavazos PCP - General 03/09/16 04/14/16 Pcp, No, LINE MAINTENANCE SUPERVISOR PCP - General 04/15/16 06/09/16 [place] [address] [place] [address] PCP - General Family Medicine 06/10/16 08/08/17 Basim White MD [address] [place] [address] PCP - General Family Medicine 08/09/17 Nate Joyce DO Development Intern 02/09/13 Morena Jara, RN 5700 [place] [address] Specialty Pmo Consultant Endocrinology 06/08/13 04/04/16 Paulie Sandra MD [address] [facility] [address] [place] [address] Primary Staff Physician Cardiology 07/04/1807/04 Paulie Sandra MD [address] [facility] [address] [place] [address] Primary Staff Physician Cardiology 07/04/18 Teagan Henriquez, RN 6000 [place] [address] Primary Care Sales Service Executive Internal Medicine 06/22/23 07/21/23 Pascale Kc, LINE MAINTENANCE SUPERVISOR.MINING CONSULTANT [address] [place] [address] Aircraft Navigator Family Medicine 03/26/24 07/04/24 Leeanne Balderas, LINE MAINTENANCE SUPERVISOR.MINING CONSULTANT [address] [place] [address] Aircraft Navigator Family Medicine 03/26/24 07/04/24 Juanita Luong PA-C [address] [place] [address] Aircraft Navigator Family Medicine 03/26/24 07/04/24 Rubi Rodriguez APRN.CNP [address] [place] [address] Aircraft Navigator Family Medicine 03/26/24 07/04/24 Christiana Sims PA-C [address] [place] [address] Aircraft Navigator Family Medicine 03/26/24 Tami Vazquez PA-C [address] [place] [address] Aircraft Navigator Family Medicine 06/07/24 07/04/24 Juanita Luong PA-C [address] [place] [address] Aircraft Navigator Family Medicine 07/11/24 07/25/24 Awa Sanchez PA-C [address] [place] [address] Aircraft Navigator Internal Medicine 09/03/24 documented as of this encounter
--- OUTSIDE RECORDS SUMMARY | 2024-09-09 00:50 | XMS_ITS | Encounter Summary ---
Author Organization [facility] Address [address] [place], [place] [address] Care Team Providers Care Bareback Rider Name Role Phone Nate Joyce DO Unavailable [phone] Mariam Cruz MD Primary Care Provider Morena Jara RN Unavailable [phone] Basim Cavazos Primary Care Provider Unavailabl e Pcp, No HAND COREMAKER Primary Care Provider Unavailabl e Anastasia Ruiz DO Primary Care Provider Basim White MD Primary Care Provider [phone] Paulie Sandra MD Unavailable Paulie Sandra MD Unavailable Teagan Henriquez RN Unavailable Pascale Kc HAND COREMAKER.FURNITURE MOVER HELPER Unavailable Leeanne Balderas HAND COREMAKER.FURNITURE MOVER HELPER Unavailable Juanita Luong PA-C Unavailable Rubi Rodriguez HAND COREMAKER.FURNITURE MOVER HELPER Unavailable Christiana Sims PA-C Unavailable Tami Vazquez PA-C Unavailable [phone] Juanita Luong PA-C Unavailable Awa Sanchez PA-C Unavailable Source Comments In the event this information is protected by the Federal Confidentiality of Alcohol and Drug AbusePatient Records regulations: The Federal rules restrict any use of the information to criminally investigate or prosecute any alcohol or drug abuse patient.[facility] Encounter Details Date Type Department Care Team (Late st Contact Info) Description 05/07/2015 Patient Msg Medical Records [address] [place] [address] Provider, Ccf Insulin pump settings Social History Tobacco Use Types Packs/Day Years [...] 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 on file [...] Info) Description 09/24/2024 6:00 PM EDT [address] [address] Basim White MD [address] [place] [address] 3 month follow up 11/28/2024 9:40 AM EDT [facility] Endocrinology [place] [address] [place] [address] [place] [address] [address] Type one diabetes pump and cgm follow up 12/20/2024 4:00 PM EDT [address] [address] Christiana Sims PA-C [address] [place] [address] 6 Month follow up and yearly physical 03/04/2025 5:20 PM EST Office Visit [address] [address] Basim White MD [address] [place] [address] 12 month follow up documented as of [...] documented as of this encounter Care Teams Bareback Rider Relationship Specialty Start Date End Date Mariam Cruz MD [address] [place] [address] PCP - General Family Medicine 02/09/13 03/08/16 Basim Cavazos PCP - General 03/09/16 04/14/16 Pcp, Karmen, ISABELLA PCP - General 04/15/16 06/09/16 [place] [address] [place] [address] PCP - General Family Medicine 06/10/16 08/08/17 Basim White MD [address] [place] [address] PCP - General Family Medicine 08/09/17 Nate Joyce DO Appraiser Oil [employer] Water 02/09/13 Morena Jara, RN 5700 [place] [address] Specialty Microarray Operations Vice President Endocrinology 06/08/13 04/04/16 Paulie Sandra MD [address] [facility] [address] [place] [address] Primary Staff Physician Cardiology 07/04/1807/04 Paulie Sandra MD [address] [facility] [address] [place] [address] Primary Staff Physician Cardiology 07/04/18 Teagan Henriquez, JIE 6000 [place] [address] Primary Care Electrician Telephone Internal Medicine 06/22/23 07/21/23 Pascale Kc, HAND COREMAKER.FURNITURE MOVER HELPER [address] [place] [address] Trim Mechanic Family Medicine 03/26/24 07/04/24 Leeanne Balderas, HAND COREMAKER.FURNITURE MOVER HELPER [address] [place] [address] Trim Mechanic Family Medicine 03/26/24 07/04/24 Juanita Luong PA-C [address] [place] [address] Trim Mechanic Family Medicine 03/26/24 07/04/24 Rubi Rodriguez APRN.[facility] [address] [place] [address] Trim Mechanic Family Medicine 03/26/24 07/04/24 Christiana Sims PA-C [address] [place] [address] Trim Mechanic Family Medicine 03/26/24 Tami Vazquez PA-C [address] [place] [address] Trim Mechanic Family Medicine 06/07/24 07/04/24 Juanita Luong PA-C [address] [place] [address] Trim Mechanic Family Medicine 07/11/24 07/25/24 Awa Sanchez PA-C [address] [place] [address] Trim Mechanic Internal Medicine 09/03/24 documented as of this encounter
--- NOTE | 2024-09-09 01:06 | ED_ITS ---
HPI HPI - General Adult General Chief complaint: Anxiety Stated complaint: chest pain Time Seen by Provider: 09/09/24 00:36 Mode of arrival: ambulance Limitations: no limitations History of Present Illness HPI narrative: cc - anxiety and chest pain Pt had a verbal argument with her son after he came home later than he was supposed to. About 10 minutes later, the patient developed rapid breathing, sharp pains across the mid anterior chest. She thought she might be having a panic attack but was also concerned that it might be something more serious. 911 was called and she was transported to our ED for evaluation. She had already improved on arrival - her pain had changed from sharp pains to an ache . PMHx = IDDM, borderline hypothyroidism. She also takes meds prescribed by my bench lay out technician to protect my kidneys = normally used to treat HTN and elevated cholesterol. No recent injury or illness. Related Data Allergies Allergy/AdvReac Type Severity Reaction Status Date / Time latex Allergy Intermediate Hives Verified 09/09/24 00:49 cephalexin (From Keflex) AdvReac Intermediate HIVES Verified 09/09/24 00:49 divalproex sodium (From AdvReac Intermediate Confusion Verified 09/09/24 00:49 Depakote) nitrofurantoin (From AdvReac Intermediate HHIVES Verified 09/09/24 00:49 Macrobid) prednisone AdvReac Intermediate Hives Verified 09/09/24 00:49 prochlorperazine (From AdvReac Intermediate HIVES Verified 09/09/24 00:49 Compazine) Sulfa (Sulfonamide AdvReac Intermediate HIVES Verified 09/09/24 00:49 Antibiotics) cirpo AdvReac Intermediate MIGRAINS Uncoded 09/09/24 00:49 Opioid HPI Opioid Management Most Recent Opioid Data: Last Pain Scale 4 Today, 01:24 Last ED Pain Assessment Today, 01:24 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 afebrile General: Well-appearing and in no apparent distress. Skin: Warm, dry, no pallor noted. Head: Normocephalic, atraumatic. Neck: Supple, non-tender. No lymphadenopathy Eye: Pupils are equal, round and EOMI. No scleral icterus. Ears, Nose, Mouth, and Throat: Oral mucosa is moist Cardiovascular: Regular Rate and Rhythm without murmur, gallop or rub. Respiratory: No accessory muscle use or respiratory distress. Lungs are clear to auscultation, no wheezing, rales or rhonchi Chest Wall: no tenderness, crepitus or subcutaneous emphysema Musculoskeletal: normal ROM, no calf or popliteal tenderness, no lower extremity edema/swelling GI: Abdomen is soft, non-distended. Normal bowel sounds. No tenderness to palpation. No rebound, guarding, or rigidity noted. Neurological: A&O x4. No cranial nerve dysfunction observed. No truncal ataxia. Moves all extremities. Sensation intact. Psychiatric: Cooperative and interactive. Normal mood and affect. Constitutional Vital Signs, click to edit/add: Last Vital Signs Temp 98.8 F 09/09/24 00:38 Pulse 83 09/09/24 00:38 Resp 18 09/09/24 00:38 BP 155/96 H 09/09/24 00:38 Pulse Ox 96 09/09/24 00:38 O2 Del Method Room Air 09/09/24 00:38 Course Vital Signs Vital signs: Vital Signs Temperature 98.8 F 09/09/24 00:38 Pulse Rate 83 09/09/24 00:38 Respiratory Rate 18 09/09/24 00:38 Blood Pressure 155/96 H 09/09/24 00:38 Pulse Oximetry 96 09/09/24 00:38 Oxygen Delivery Method Room Air 09/09/24 00:38 Temperature 98.8 F 09/09/24 00:38 Pulse Rate 83 09/09/24 00:38 Respiratory Rate 18 09/09/24 00:38 Blood Pressure 155/96 H 09/09/24 00:38 Pulse Oximetry 96 09/09/24 00:38 Oxygen Delivery Method Room Air 09/09/24 00:38 Medical Decision Making MDM Narrative Medical decision making narrative: Patient was in a verbal argument with her son. She later developed anxiety/panic type symptoms. However she is an insulin-dependent diabetic and when she develops chest pain she called 911 and was brought to the ED for evaluation. Patient was placed on color television console monitor and EKG obtained. Blood drawn and sent for evaluation. Portable chest x-ray obtained. Workup unremarkable. Her presentation, exam and results support anxiety/panic as the etiology of her symptoms. She was informed of results and discharged home. Lab Data Lab results reviewed: Yes I reviewed the patient's lab results Labs: Lab Results 09/09/24 Range/Units 00:45 WBC 10.1 (4.0-11.0) 10^3/uL RBC 4.31 (4.20-5.40) 10^6/uL Hgb 12.8 (12.0-16.0) g/dL Hct 37.6 (36.0-48.0) % MCV 87.2 (81.0-99.0) fL MCH 29.7 (26.7-34.0) pg MCHC 34.0 (29.9-35.2) g/dL RDW 14.1 (11.0-15.0) % Plt Count 251 (150-450) 10^3/uL MPV 10.6 (9.5-13.5) fL Neut % (Auto) 58.1 (43.0-75.0) % Lymph % (Auto) 30.8 (20.5-60.0) % [place] % (Auto) 5.6 (1.7-12.0) % Eos % (Auto) 4.5 (0.9-7.0) % Baso % (Auto) 0.8 (0.2-2.0) % Neut # (Auto) 5.9 (1.4-6.5) 10^3/uL Lymph # (Auto) 3.1 (1.2-3.8) 10^3/uL [place] # (Auto) 0.6 (0.3-0.8) 10^3/uL Eos # (Auto) 0.5 (0.0-0.7) 10^3/uL Baso # (Auto) 0.1 (0.0-0.1) 10^3/uL Abs Immat Gran (auto) 0.02 (0.00-0.03) 10^3/uL Imm/Tot Granulo (auto) 0.2 (0.0-0.5) % Sodium 138 (136-145) mmol/L Potassium 3.9 (3.5-5.1) mmol/L Chloride 103 (98-107) mmol/L Carbon Dioxide 26.6 (21.0-32.0) mmol/L Anion Gap 12.3 BUN 7.0 (7.0-18.0) mg/dL Creatinine 0.92 (0.55-1.02) mg/dL Est GFR ( Amer) >60 (>=60 mL/min/1.73m^2) Est GFR (Non-Af Amer) >60 (>=60 mL/min/1.73m^2) BUN/Creatinine Ratio 7.6 Glucose 144 H (74-106) mg/dL Calcium 8.9 (8.5-10.1) mg/dL Troponin I High Sens <4.0 L (4.0-51.3) pg/mL Imaging Data Chest x-ray: Attestation: I personally reviewed and interpreted this imaging study as follows: My impression: NAD ECG Data Attestation: I personally reviewed and interpreted this ECG as follows: Interpretation: EKG interpretation: Emergency Department physician interpretation. Normal sinus rhythm at 79bpm. Normal axis, normal intervals. Nonspecific T wave changes without ST segment elevation or depression. Discharge Plan Discharge Chief Complaint: Anxiety Clinical Impression: Acute anxiety, Chest pain Patient Disposition: Home, Self-Care Time of Disposition Decision: 02:08 Print Language: Maori Instructions: Chest Pain (ED), Anxiety (ED) Referrals: Physician,Non-Staff, MD [Primary Care Provider] - 1 week
[2024-09-09 01:13] LABS: Basophils Absolute Auto 0.1 10^3/uL (0.0-0.1); Basophils Percent Auto 0.8 % (0.2-2.0); Eosinophils Absolute Auto 0.5 10^3/uL (0.0-0.7); Eosinophils Percent Auto 4.5 % (0.9-7.0); Hematocrit 37.6 % (36.0-48.0); Hemoglobin 12.8 g/dL (12.0-16.0); Immature Granulocytes Abs Auto 0.02 10^3/uL (0.00-0.03); Immature Granulocytes Pct Auto 0.2 % (0.0-0.5); Lymphocytes Absolute Auto 3.1 10^3/uL (1.2-3.8); Lymphocytes Percent Auto 30.8 % (20.5-60.0); Mean Corpuscular Hemoglobin 29.7 pg (26.7-34.0); Mean Corpuscular Volume 87.2 fL (81.0-99.0); Mean Platelet Volume 10.6 fL (9.5-13.5); Monocytes Absolute Auto 0.6 10^3/uL (0.3-0.8); Monocytes Percent Auto 5.6 % (1.7-12.0); Neutrophils Absolute Auto 5.9 10^3/uL (1.4-6.5); Neutrophils Percent Auto 58.1 % (43.0-75.0); Platelet Count 251 10^3/uL (150-450); Red Blood Count 4.31 10^6/uL (4.20-5.40); Red Cell Distribution Width 14.1 % (11.0-15.0); White Blood Count 10.1 10^3/uL (4.0-11.0)
[2024-09-09 01:31] LABS: Anion Gap 12.3; BUN Creatinine Ratio 7.6; Calcium 8.9 mg/dL (8.5-10.1); Carbon Dioxide 26.6 mmol/L (21.0-32.0); Chloride 103 mmol/L (98-107); Estimated GFR (African America >60 (>=60 mL/min/1.73m^2); Estimated GFR (Non-African Ame >60 (>=60 mL/min/1.73m^2); Glucose 144 mg/dL (74-106); Potassium 3.9 mmol/L (3.5-5.1); Sodium 138 mmol/L (136-145); Troponin I High Sensitivity <4.0 pg/mL (4.0-51.3)
== END 2024-09-09 02:44 | disposition home or self-care (01) ==
PROVIDERS: Emergency Provider Emergency Medicine
DX: R07.9 Chest pain, unspecified (principal); F41.9 Anxiety disorder, unspecified; E11.9 Type 2 diabetes mellitus without complications; Z79.4 Long term (current) use of insulin
CPT/HCPCS: 36415; 71045; 80048; 84484; 85025; 93005; 99285